=== PATIENT | female | born 1980 | race Caucasian/White ===

== ENCOUNTER 2023-03-25 13:12 | Outpatient (OUT) | payer OTHER, SELFPAY ==
[2023-03-25 16:56] LABS: Thyroid Stimulating Hormone 0.852 uIU/mL (0.358-3.740)
== END 2023-03-25 13:13 | disposition home or self-care (01) ==
LOC: LAB 13:18
PROVIDERS: PCP Nurse Practitioner
DX: R41.3 Other amnesia (principal)
CPT/HCPCS: 36415; 82607; 84443

== ENCOUNTER 2023-04-06 13:50 | Emergency (ER) | payer OTHER, SELFPAY ==
[2023-04-06 14:05] VITALS: BP 116/83; PULSE 80; RESP 16; O2SAT 100; BMI 28.2
--- NOTE | 2023-04-06 14:11 | XR_ITS ---
The [address] [address] Patient Name: ANDREA CORNELIUS MRN: [id number] date: 1980 Sex: F Assigned Patient Location: ER Current Patient Location: ER Accession/Order Number: [id number] Exam Date: 04/06/2023 15:18 Report Date: 04/06/2023 15:51 At the request of: ANITRA HENRY Procedure: XR acute abdomen series EXAMINATION: XR acute abdomen series HISTORY: Epigastric pain and difficulty swallowing COMPARISON: None. TECHNIQUE: PA chest and 2 views of the abdomen FINDINGS: The lung parenchyma is free of consolidation or infiltrate. No pneumothorax or pleural effusion. The cardiac, mediastinal and hilar contours are normal. The bowel gas pattern is nonobstructed. No free intraperitoneal air or visualized intra-abdominal calcification. Stool burden is unremarkable. The visualized osseous structures exhibit no gross abnormality. XR/XR acute abdomen series IMPRESSION: No visualized abnormality. Electronically authenticated by: JANA MARTIN Date: 04/06/2023 15:51
--- NOTE | 2023-04-06 14:40 | ED.GENADUL1 ---
HPI - General Adult General Chief complaint: Nausea/Vomiting/Diarrhea Stated complaint: HEART BURN/ESOPHAGUS SWOLLEN Time Seen by Provider: 04/06/23 14:11 Mode of arrival: walk-in History of Present Illness HPI narrative: patient is a 43-year-old female presents to the emergency department for difficulty swallowing over the last day. She has a history of esophagitis and heartburn. She states for the last two weeks she has had an increase in heartburn-type symptoms. She states last night she was able to eat and drink fairly well but today she was not able to pass three bites of macaroni and cheese and they came back up. She states she had an endoscopy done one year ago with her colonoscopy for irritable bowel syndrome and she was found to have swelling in the stomach and esophagus. She is not concerned for . She is not on any medicines for esophagitis or gastritis. Related Data Home Medications Medication Instructions Recorded Confirmed clonazepam 1 mg tablet 1 mg PO BID 04/06/23 04/06/23 dicyclomine 20 mg tablet 20 mg PO .Q6HR PRN abdominal pain 04/06/23 04/06/23 fluoxetine 40 mg capsule 80 mg PO DAILY 04/06/23 04/06/23 gabapentin 800 mg tablet 800 mg PO TID 04/06/23 04/06/23 levetiracetam 500 mg tablet 500 mg PO BID 04/06/23 04/06/23 modafinil 100 mg tablet 100 mg PO QID 04/06/23 04/06/23 naratriptan 2.5 mg tablet 2.5 mg PO DAILY PRN migraine 04/06/23 04/06/23 headache potassium bicarbonate-citric acid 25 meq PO BID 04/06/23 04/06/23 25 mEq effervescent tablet (Klor-Con/EF) sumatriptan succinate 100 mg tablet 100 mg PO Q2H PRN migraine headache 04/06/23 04/06/23 tizanidine 4 mg tablet 4 mg PO QPM PRN muscle spasticity 04/06/23 04/06/23 Previous Rx's Medication Instructions Recorded ondansetron 4 mg disintegrating 4 mg PO Q6H PRN nausea and 04/06/23 tablet vomiting #12 tabs pantoprazole 40 mg tablet,delayed 40 mg PO DAILY #7 tabs 04/06/23 release (Protonix) sucralfate 1 gram tablet (Carafate) 1 g PO Q6H PRN abdominal pain #12 04/06/23 tabs Allergies Allergy/AdvReac Type Severity Reaction Status Date / Time metoclopramide [From Reglan] Allergy Severe Verified 04/06/23 14:11 Penicillins Allergy Severe Verified 04/06/23 14:11 Review of Systems ROS Constitutional Denies: fever or chills Ears, nose, mouth, and throat Denies: throat pain or neck pain Cardiovascular Reports: chest pain Respiratory Denies: shortness of breath or cough Gastrointestinal Denies: abdominal pain, nausea or vomiting Musculoskeletal Denies: back pain Integumentary/Breast Denies: rash [facility] Medical History (Updated 04/06/23 @ 16:02 by DILCIA Draper) Exam Narrative Exam Narrative: Gen.: Awake, alert, in no distress Head: Normocephalic, atraumatic ENT: Moist mucous membranes Respiratory: No respiratory distress, lungs clear bilaterally Cardio: Regular rate and rhythm Gastrointestinal: Abdomen is soft, nondistended and nontender to palpation Extremities: Moves extremities equally, no injuries noted Psych: Normal mood and affect Neuro: No focal neuro deficit Skin: Warm, dry, intact Constitutional Vital Signs, click to edit/add: Last Vital Signs Pulse 63 04/06/23 15:32 Resp 18 04/06/23 15:32 BP 161/96 H 04/06/23 15:32 Pulse Ox 97 04/06/23 15:32 O2 Del Method Room Air 04/06/23 15:32 Course Vital Signs Vital signs: Vital Signs Pulse Rate 80 04/06/23 14:05 Respiratory Rate 16 04/06/23 14:05 Blood Pressure 116/83 H 04/06/23 14:05 Pulse Oximetry 100 04/06/23 14:05 Oxygen Delivery Method Room Air 04/06/23 14:05 Pulse Rate 63 04/06/23 15:32 Respiratory Rate 18 04/06/23 15:32 Blood Pressure 161/96 H 04/06/23 15:32 Pulse Oximetry 97 04/06/23 15:32 Oxygen Delivery Method Room Air 04/06/23 15:32 Medical Decision Making MDM Narrative Medical decision making narrative: patient is treated with IV fluids, IV Protonix, she tolerated a gastrointestinal cocktail with no difficulty. After stating multiple times that the patient did not want an IV and stated I don't even want to be here her family member reported that she was crying and needed somebody to talk to her about her migraine that she developed in the emergency department. Patient treated with a Fioricet prior to discharge, she had no episodes of emesis and tolerated the gastrointestinal cocktail with no problem. She is discharged home with Protonix, Carafate and Zofran to follow-up with general surgery as needed. Return to the Emergency Room if symptoms change or worsen. Medical Records Medical records reviewed: Yes I reviewed the patient's medical records Lab Data Lab results reviewed: Yes I reviewed the patient's lab results Labs: Lab Results 04/06/23 04/06/23 04/06/23 Range/Units 14:38 14:47 15:06 WBC 4.8 (4.0-11.0) 10^3/uL RBC 3.86 L (4.20-5.40) 10^6/uL Hgb 12.1 (12.0-16.0) g/dL Hct 36.4 (36.0-48.0) % MCV 94.3 (81.0-99.0) fL MCH 31.3 (26.7-34.0) pg MCHC 33.2 (29.9-35.2) g/dL RDW 12.4 (11.0-15.0) % Plt Count 248 (150-450) 10^3/uL MPV 10.5 (9.5-13.5) fL Neut % (Auto) 54.3 (43.0-75.0) % Lymph % (Auto) 27.7 (20.5-60.0) % [place] % (Auto) 14.5 H (1.7-12.0) % Eos % (Auto) 2.7 (0.9-7.0) % Baso % (Auto) 0.4 (0.2-2.0) % Neut # (Auto) 2.6 (1.4-6.5) 10^3/uL Lymph # (Auto) 1.3 (1.2-3.8) 10^3/uL [place] # (Auto) 0.7 (0.3-0.8) 10^3/uL Eos # (Auto) 0.1 (0.0-0.7) 10^3/uL Baso # (Auto) 0.0 (0.0-0.1) 10^3/uL Abs Immat Gran (auto) 0.02 (0.00-0.03) 10^3/uL Imm/Tot Granulo (auto) 0.4 (0.0-0.5) % Sodium 139 (136-145) mmol/L Potassium 4.1 (3.5-5.1) mmol/L Chloride 103 (98-107) mmol/L Carbon Dioxide 26.7 (21.0-32.0) mmol/L Anion Gap 13.4 BUN 14.0 (7.0-18.0) mg/dL Creatinine 0.80 (0.55-1.02) mg/dL Est GFR ( Amer) >60 (>=60) Est GFR (Non-Af Amer) >60 (>=60) BUN/Creatinine Ratio 17.5 Glucose 96 (74-106) mg/dL Lactate 0.9 (0.4-2.0) mmol/L Calcium 8.6 (8.5-10.1) mg/dL Total Bilirubin 0.3 (0.2-1.0) mg/dL AST 20 (15-37) U/L ALT 26 (14-59) U/L Alkaline Phosphatase 76 (46-116) U/L Troponin I High Sens <4.0 L (4.0-51.3) pg/mL Total Protein 6.6 (6.4-8.2) g/dL Albumin 3.6 (3.4-5.0) g/dL Globulin 3.0 g/dL Albumin/Globulin Ratio 1.2 Lipase 46.0 L (73.0-393.0) U/L Urine Color Lt. yellow (YELLOW) Urine Clarity Clear (CLEAR) Urine pH 7.5 (5.0-9.0) Ur Specific [place] 1.015 (1.005-1.025) Urine Protein Negative (NEG/TRACE) mg/dL Urine Glucose (UA) Negative (NEGATIVE) mg/dL Urine Ketones Negative (NEGATIVE) mg/dL Urine Occult Blood Negative (NEGATIVE) Urine Nitrite Negative (NEGATIVE) Urine Bilirubin Negative (NEGATIVE) Urine Urobilinogen 0.2 (0.2-1.0) EU/dL Ur Leukocyte Esterase Negative (NEGATIVE) Imaging Data Abdominal x-ray: Attestation: I have reviewed the pertinent imaging results. Radiologist's impression: Procedure: XR acute abdomen series EXAMINATION: XR acute abdomen series HISTORY: Epigastric pain and difficulty swallowing COMPARISON: None. TECHNIQUE: PA chest and 2 views of the abdomen FINDINGS: The lung parenchyma is free of consolidation or infiltrate. No pneumothorax or pleural effusion. The cardiac, mediastinal and hilar contours are normal. The bowel gas pattern is nonobstructed. No free intraperitoneal air or visualized intra-abdominal calcification. Stool burden is unremarkable. The visualized osseous structures exhibit no gross abnormality. IMPRESSION: No visualized abnormality. Electronically authenticated by: JANA MARTIN Date: 04/06/2023 15:51 Discharge Plan Discharge Chief Complaint: Nausea/Vomiting/Diarrhea Clinical Impression: Esophagitis Patient Disposition: Home, Self-Care Time of Disposition Decision: 16:03 Condition: Good Prescriptions / Home Meds: New sucralfate [Carafate] 1 gram tablet 1 g PO Q6H PRN (Reason: abdominal pain) Qty: 12 0RF pantoprazole [Protonix] 40 mg tablet,delayed release (DR/EC) 40 mg PO DAILY Qty: 7 0RF ondansetron 4 mg tablet,disintegrating 4 mg PO Q6H PRN (Reason: nausea and vomiting) Qty: 12 0RF No Action clonazepam 1 mg tablet 1 mg PO BID dicyclomine 20 mg tablet 20 mg PO .Q6HR PRN (Reason: abdominal pain) fluoxetine 40 mg capsule 80 mg PO DAILY gabapentin 800 mg tablet 800 mg PO TID levetiracetam 500 mg tablet 500 mg PO BID modafinil 100 mg tablet 100 mg PO QID naratriptan 2.5 mg tablet 2.5 mg PO DAILY PRN (Reason: migraine headache) Klor-Con/EF 25 mEq tablet, effervescent 25 meq PO BID sumatriptan succinate 100 mg tablet 100 mg PO Q2H PRN (Reason: migraine headache) tizanidine 4 mg tablet 4 mg PO QPM PRN (Reason: muscle spasticity) Instructions: Dysphagia (ED), Esophagitis (ED) Additional Instructions: Follow up with your doctor or a GI specialist - [place] Eck[place] [place] [phone] Stand Alone Forms: Portal Instructions Referrals: Caitlin Finch [Primary Care Provider] - 1 week
[2023-04-06 14:57] LABS: Basophils Percent Auto 0.4 % (0.2-2.0); Eosinophils Absolute Auto 0.1 10^3/uL (0.0-0.7); Eosinophils Percent Auto 2.7 % (0.9-7.0); Hematocrit 36.4 % (36.0-48.0); Hemoglobin 12.1 g/dL (12.0-16.0); Immature Granulocytes Abs Auto 0.02 10^3/uL (0.00-0.03); Immature Granulocytes Pct Auto 0.4 % (0.0-0.5); Lymphocytes Absolute Auto 1.3 10^3/uL (1.2-3.8); Lymphocytes Percent Auto 27.7 % (20.5-60.0); Mean Corpuscular HGB Conc 33.2 g/dL (29.9-35.2); Mean Corpuscular Hemoglobin 31.3 pg (26.7-34.0); Mean Corpuscular Volume 94.3 fL (81.0-99.0); Mean Platelet Volume 10.5 fL (9.5-13.5); Monocytes Absolute Auto 0.7 10^3/uL (0.3-0.8); Monocytes Percent Auto 14.5 % (1.7-12.0); Neutrophils Absolute Auto 2.6 10^3/uL (1.4-6.5); Neutrophils Percent Auto 54.3 % (43.0-75.0); Platelet Count 248 10^3/uL (150-450); Red Blood Count 3.86 10^6/uL (4.20-5.40); Red Cell Distribution Width 12.4 % (11.0-15.0); White Blood Count 4.8 10^3/uL (4.0-11.0)
[2023-04-06 15:15] LABS: Bilirubin Urine NEGATIVE (NEGATIVE); Blood Urine NEGATIVE (NEGATIVE); Clarity Urine CLEAR (CLEAR); Color Urine LT. YELLOW (YELLOW); Glucose Urine UA NEGATIVE (NEGATIVE); Ketones Urine NEGATIVE (NEGATIVE); Leukocyte Esterase Urine NEGATIVE (NEGATIVE); Nitrite Urine NEGATIVE (NEGATIVE); Protein Urine NEGATIVE (NEG/TRACE); Specific Gravity Urine 1.015 (1.005-1.025); Urobilinogen Urine 0.2 EU/dL (0.2-1.0); pH Urine 7.5 (5.0-9.0)
[2023-04-06 15:16] LABS: Urine Microscopic Indicated NO
[2023-04-06] MEDS: 0.9 % SODIUM CHLORIDE 1,000 ML 999 ML IV (15:23)
[2023-04-06] MEDS: lidocaine HCL 15 ML, MAG HYDROX/ALUMINUM HYD/SIMETH 30 ML, HYOSCYAMINE SULFATE 0.25 MG PO (15:23)
[2023-04-06] MEDS: PANTOPRAZOLE SODIUM 40 MG VIAL IV (15:23)
[2023-04-06 15:31] LABS: Alanine Aminotransferase 26 U/L (14-59); Albumin Globulin Ratio 1.2; Albumin Level 3.6 g/dL (3.4-5.0); Alkaline Phosphatase 76 U/L (46-116); Anion Gap 13.4; Aspartate Amino Transferase 20 U/L (15-37); BUN Creatinine Ratio 17.5; Bilirubin Total 0.3 mg/dL (0.2-1.0); Calcium 8.6 mg/dL (8.5-10.1); Carbon Dioxide 26.7 mmol/L (21.0-32.0); Chloride 103 mmol/L (98-107); Estimated GFR (African America >60 (>=60); Estimated GFR (Non-African Ame >60 (>=60); Glucose 96 mg/dL (74-106); Potassium 4.1 mmol/L (3.5-5.1); Sodium 139 mmol/L (136-145); Total Protein 6.6 g/dL (6.4-8.2); Troponin I High Sensitivity <4.0 pg/mL (4.0-51.3)
[2023-04-06 15:32] VITALS: BP 161/96; PULSE 63; RESP 18; O2SAT 97
[2023-04-06 15:32] LABS: Lactate/Lactic Acid 0.9 mmol/L (0.4-2.0)
== END 2023-04-06 16:23 | disposition home or self-care (01) ==
PROVIDERS: Physician Assistant; Emergency Provider Emergency Medicine; PCP Nurse Practitioner
DX: K20.90 Esophagitis, unspecified without bleeding (principal); Z79.899 Other long term (current) drug therapy
CPT/HCPCS: 36415; 74022; 80053; 81003; 83605; 83690; 84484; 85025; 96361; 96374; 99285

== ENCOUNTER 2023-07-03 14:56 | Outpatient (OUT) | payer OTHER, SELFPAY ==
--- NOTE | 2023-07-03 15:07 | XR_ITS ---
The [address] [address] Patient Name: ANDREA CORNELIUS MRN: [id number] date: 1980 Sex: F Assigned Patient Location: [facility] Current Patient Location: Accession/Order Number: [id number] Exam Date: 07/03/2023 15:10 Report Date: 07/05/2023 16:01 At the request of: RONEY VILLALTA Procedure: XR abdomen 1V EXAMINATION: XR abdomen 1V, [id number] HISTORY: KIDNEY STONES N20.0 COMPARISON: CT abdomen/pelvis 07/04/2022. FINDINGS/IMPRESSION: There are 3 small calcification(s) projecting over left, similar in size and location compared with 07/04/2022. The 2 punctate stones seen in the right kidney on the CT from 07/04/2022 are not visualized and could be obscured by overlying soft tissues or may have passed. No new calcification projecting over either kidney or along the expected courses of the ureters. Nonobstructive bowel gas pattern. Stool burden is average. Electronically authenticated by: JOAN FINCH Date: 07/05/2023 16:01
== END 2023-07-03 14:57 | disposition home or self-care (01) ==
LOC: RAD 14:57
PROVIDERS: PCP Nurse Practitioner; Visit Provider Urology
DX: N20.0 Calculus of kidney (principal)
CPT/HCPCS: 74018

== ENCOUNTER 2023-08-21 18:00 | Emergency (ER) | payer OTHER, SELFPAY ==
[2023-08-21] VITALS (14 sets, daily range): BP systolic 122–124; BP diastolic 78–83; PULSE 48–60; RESP 14–21; TEMP 36.8; O2SAT 92–97; BMI 28.3
--- NOTE | 2023-08-21 18:48 | ED.CHESTPAI1 ---
HPI - Chest Pain General Chief Complaint: Chest Pain Stated Complaint: Chest Pain, Shortness of Breath Time Seen by Provider: 08/21/23 18:41 Source: patient Mode of arrival: walk-in Limitations: no limitations History of Present Illness HPI narrative: this patient's here for evaluation of chest pain. She said it started low but yesterday and seemed be worse today. She says she just saw a special day class teacher after being referred from her primary care practitioner. Should the special day class teacher said her blood work was normal. She has not had previous myocardial infarction valvular heart disease or coronary disease. She quit smoking many years ago. She does not have any shortness of breath. She admits that she suffers from anxiety and fibromyalgia psoas difficult to tell if there is anything wrong when she has chest pain. She said this discomfort is like she was punched in the sternum area that started yesterday. She has not had deep vein thrombosis PE phlebitis or any other underlying pulmonary or vascular disease. She is also scheduled to have pulmonary function testing next week. She is seeing a neurologist for migraines. She feels she might be having anxiety attack but wanted to be sure there is nothing serious today. Related Data Home Medications Medication Instructions Recorded Confirmed clonazepam 1 mg tablet 1 mg PO BID 04/06/23 04/06/23 dicyclomine 20 mg tablet 20 mg PO .Q6HR PRN abdominal pain 04/06/23 04/06/23 fluoxetine 40 mg capsule 80 mg PO DAILY 04/06/23 04/06/23 gabapentin 800 mg tablet 800 mg PO TID 04/06/23 04/06/23 levetiracetam 500 mg tablet 500 mg PO BID 04/06/23 04/06/23 modafinil 100 mg tablet 100 mg PO QID 04/06/23 04/06/23 naratriptan 2.5 mg tablet 2.5 mg PO DAILY PRN migraine 04/06/23 04/06/23 headache potassium bicarbonate-citric acid 25 meq PO BID 04/06/23 04/06/23 25 mEq effervescent tablet (Klor-Con/EF) sumatriptan succinate 100 mg tablet 100 mg PO Q2H PRN migraine headache 04/06/23 04/06/23 tizanidine 4 mg tablet 4 mg PO QPM PRN muscle spasticity 04/06/23 04/06/23 Previous Rx's Medication Instructions Recorded ondansetron 4 mg disintegrating 4 mg PO Q6H PRN nausea and 04/06/23 tablet vomiting #12 tabs pantoprazole 40 mg tablet,delayed 40 mg PO DAILY #7 tabs 04/06/23 release (Protonix) sucralfate 1 gram tablet (Carafate) 1 g PO Q6H PRN abdominal pain #12 04/06/23 tabs Allergies Allergy/AdvReac Type Severity Reaction Status Date / Time metoclopramide [From Reglan] Allergy Severe Verified 04/06/23 14:11 Penicillins Allergy Severe Verified 04/06/23 14:11 [facility] Medical History (Updated 08/21/23 @ 18:52 by Mauricio Curry MD) Fibromyalgia ?M79.7 - Fibromyalgia (ICD-10) IBS (irritable bowel syndrome) ?K58.9 - Irritable bowel syndrome without diarrhea (ICD-10) Migraine ?G43.909 - Migraine, unspecified, not intractable, without status migrainosus (ICD-10) Seizure ?R56.9 - Unspecified convulsions (ICD-10) Exam Narrative Exam Narrative: awake alert stable vital signs. She is afebrile heart rates sixty temperature normal pulse ox 97-98 percent on room air. HEENT no evidence of pallor or scleral icterus or swelling of the craniofacial area. Chest her lungs are completely clear with no wheeze or rales rhonchi there is no pleural or pericardial rub. Respiratory shows no rest or distress wheezing or coughing and is a said no rales or rhonchi. Extremities show no evidence of deep vein thrombosis phlebitis or edema. Neurological shows no focal neurological deficits. Mentation she does have somewhat of a flat and depressed affect. She is very pleasant nonetheless. Constitutional Vital Signs, click to edit/add: Last Vital Signs Temp 98.2 F 08/21/23 18:02 Pulse 58 L 08/21/23 18:02 Resp 20 08/21/23 18:02 BP 124/83 08/21/23 18:02 Pulse Ox 97 08/21/23 18:02 O2 Del Method Room Air 08/21/23 18:02 Course Vital Signs Vital signs: Vital Signs Temperature 98.2 F 08/21/23 18:02 Pulse Rate 58 L 08/21/23 18:02 Respiratory Rate 20 08/21/23 18:02 Blood Pressure 124/83 08/21/23 18:02 Pulse Oximetry 97 08/21/23 18:02 Oxygen Delivery Method Room Air 08/21/23 18:02 Temperature 98.2 F 08/21/23 18:02 Pulse Rate 58 L 08/21/23 18:02 Respiratory Rate 20 08/21/23 18:02 Blood Pressure 124/83 08/21/23 18:02 Pulse Oximetry 97 08/21/23 18:02 Oxygen Delivery Method Room Air 08/21/23 18:02 MDM - Chest Pain MDM Narrative Medical decision making narrative: patient presents with atypical presentation process chest pain. Which is cleared by a special day class teacher for the same. Does suffer from fibromyalgia and some anxiety. We'll order initial labs for the next Emergency Room physician follow-up with Discharge Plan Discharge Chief Complaint: Chest Pain Clinical Impression: Chest pain Prescriptions / Home Meds: No Action clonazepam 1 mg tablet 1 mg PO BID dicyclomine 20 mg tablet 20 mg PO .Q6HR PRN (Reason: abdominal pain) fluoxetine 40 mg capsule 80 mg PO DAILY gabapentin 800 mg tablet 800 mg PO TID levetiracetam 500 mg tablet 500 mg PO BID modafinil 100 mg tablet 100 mg PO QID naratriptan 2.5 mg tablet 2.5 mg PO DAILY PRN (Reason: migraine headache) Klor-Con/EF 25 mEq tablet, effervescent 25 meq PO BID sumatriptan succinate 100 mg tablet 100 mg PO Q2H PRN (Reason: migraine headache) tizanidine 4 mg tablet 4 mg PO QPM PRN (Reason: muscle spasticity) sucralfate [Carafate] 1 gram tablet 1 g PO Q6H PRN (Reason: abdominal pain) Qty: 12 0RF pantoprazole [Protonix] 40 mg tablet,delayed release (DR/EC) 40 mg PO DAILY Qty: 7 0RF ondansetron 4 mg tablet,disintegrating 4 mg PO Q6H PRN (Reason: nausea and vomiting) Qty: 12 0RF Referrals: Caitlin Finch, TASSEL MAKING MACHINE OPERATOR [Primary Care Provider] - 1 week
--- NOTE | 2023-08-21 18:50 | XR_ITS ---
The [address] [address] Patient Name: ANDREA CORNELIUS MRN: [id number] date: 1980 Sex: F Assigned Patient Location: ER Current Patient Location: ED.MAIN Accession/Order Number: [id number] Exam Date: 08/21/2023 19:15 Report Date: 08/21/2023 19:41 At the request of: MOLLY SOLIS Procedure: XR chest 1V EXAMINATION: XR chest 1V HISTORY: Chest pain COMPARISON: Portable chest 07/05/2022 TECHNIQUE: Portable chest FINDINGS: The lung parenchyma is free of consolidation or infiltrate. No pneumothorax or pleural effusion. The cardiac, mediastinal and hilar contours are normal. The visualized osseous structures exhibit no gross abnormality. XR/XR chest 1V IMPRESSION: No acute cardiopulmonary abnormality. Electronically authenticated by: JANA MARTIN Date: 08/21/2023 19:41
--- NOTE | 2023-08-21 18:50 | ECG_ITS ---
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
[2023-08-21 18:55] LABS: Basophils Percent Auto 0.4 % (0.2-2.0); Eosinophils Absolute Auto 0.1 10^3/uL (0.0-0.7); Eosinophils Percent Auto 1.6 % (0.9-7.0); Hematocrit 36.5 % (36.0-48.0); Hemoglobin 11.7 g/dL (12.0-16.0); Immature Granulocytes Abs Auto 0.01 10^3/uL (0.00-0.03); Immature Granulocytes Pct Auto 0.1 % (0.0-0.5); Mean Corpuscular HGB Conc 32.1 g/dL (29.9-35.2); Mean Corpuscular Hemoglobin 31.5 pg (26.7-34.0); Mean Corpuscular Volume 98.4 fL (81.0-99.0); Mean Platelet Volume 10.6 fL (9.5-13.5); Monocytes Absolute Auto 0.9 10^3/uL (0.3-0.8); Monocytes Percent Auto 11.5 % (1.7-12.0); Neutrophils Absolute Auto 5.1 10^3/uL (1.4-6.5); Neutrophils Percent Auto 62.4 % (43.0-75.0); Platelet Count 290 10^3/uL (150-450); Red Blood Count 3.71 10^6/uL (4.20-5.40); White Blood Count 8.2 10^3/uL (4.0-11.0)
[2023-08-21 19:13] LABS: Anion Gap 12.3; BUN Creatinine Ratio 16.2; Calcium 8.6 mg/dL (8.5-10.1); Carbon Dioxide 22.8 mmol/L (21.0-32.0); Chloride 105 mmol/L (98-107); Estimated GFR (African America >60 (>=60); Estimated GFR (Non-African Ame 57 (>=60); Glucose 107 mg/dL (74-106); Potassium 4.1 mmol/L (3.5-5.1); Sodium 136 mmol/L (136-145); Troponin I High Sensitivity 5.5 pg/mL (4.0-51.3)
--- OUTSIDE RECORDS SUMMARY | 2023-09-15 23:40 | XMS_ITS | CCD ---
Author Name Unknown Address [address] [place] [address] Organization [facility] Care Team Providers Care Unix Consultant Name Role Phone Unavailable Primary Care Provider UnavailCaitlin Choi Primary Care Provider DO Fernando Ragsdale Attending Provider [phone] NON STAFF Primary Care Provider UnavailCaitlin Choi Primary Care Provider [phone] Jaelyn Bright Unavailable CAITLIN FINCH Primary Care Physician [phone] Caitlin Finch Primary Care Provider [phone] CAITLIN FINCH Primary Care Unavailable FRANK DIAZ Referring Unavailabl e CAITLIN FINCH Primary Care Unavailable FARNK DIAZ Referring Unavailabl e CAITLIN FINCH. Primary Care Unavailable FRANK DIAZ Referring Unavailabl e STEF CAITLIN Ras. Primary Care Unavailable FRANK DIAZ Referring Unavailabl e AICHHOLZ, TELEVISION HOST CAITLIN Primary Care Unavailable BENEDICT WONG Admitting Unavailable BENEDICT WONG Attending Unavailable BENEDICT WONG Consulting Unavailable DR ALANNAH HURTADO Admitting Unavailable AICHHOLZ, TELEVISION HOST CAITLIN Primary Care Unavailable DR ALANNAH HURTADO Attending Unavailable DR NOAH DIAZ Consulting Unavailable DR ALANNAH HURTADO Consulting Unavailable KIRILL Laboy, DR WILSON Consulting Unavailable JANA MARTIN Consulting Unavailable AICHHOLZ, TELEVISION HOST CAITLIN Consulting Unavailable AICHHOLZ, TELEVISION HOST CAITLIN Primary Care Unavailable AICHHOLZ, TELEVISION HOST CAITLIN Admitting Unavailable AICHHOLZ, TELEVISION HOST CAITLIN Attending Unavailable ZIEBBELLA, DR CHIDI Kumar Consulting Unavailable AICHHOLZ, TELEVISION HOST CAITLIN Consulting Unavailable AICHHOLZ, TELEVISION HOST CAITLIN Primary Care Unavailable AICHHOLZ, TELEVISION HOST CAITLIN Admitting Unavailable AICHHOLZ, TELEVISION HOST CAITLIN Attending Unavailable VILLALTA ., DR SIM Admitting Unavailable AICHHOLZ, TELEVISION HOST CAITLIN Primary Care Unavailable VILLALTA ., DR SIM Attending Unavailable VILLALTA ., DR SIM Consulting Unavailable AICHHOLZ, TELEVISION HOST CAITLIN Primary Care Unavailable AICHHOLZ, TELEVISION HOST CAITLIN Admitting Unavailable AICHHOLZ, TELEVISION HOST CAITLIN Attending Unavailable ANDREW, DR CHIDI Kumar Consulting Unavailable HAY ., DR WILSON Admitting Unavailable AICHHOLZ, TELEVISION HOST CAITLIN Primary Care Unavailable HAY ., DR WILSON Attending Unavailable HAY ., DR WILSON Consulting Unavailable Aichholz, Caitlin Gemini Unavailable Unavailable Unavailable Aichjosez, Caitlin J. Primary Care Provider [phone] Anya Watkins Referring Unavailable Aichholz, Caitlin J Primary Care Unavailable Diaz, Shaneka Attending Unavailable Diaz, Shaneka Admitting Unavailable Diaz, Shaneka Attending Unavailable Diaz, Shaneka Referring Unavailable Aichholz, Mrs. Caitlin Gemini Primary Care Unavailab le Diaz, Shaneka Attending Unavailable Diaz, Shaneka Referring Unavailable Aichholz, Mrs. Caitlin Gemini Primary Care Unavailab le Anya Watkins Attending Unavailable Aichholz, Mrs. Caitlin Gemini Primary Care Unavailab le Diaz, Shaneka Attending Unavailable Diaz, Shaneka Referring Unavailable Aichholz, Mrs. Caitlin Gemini Primary Care Unavailab le Aichholz, Mrs. Caitlin Gemini Primary Care Unavailab le Diaz, Shaneka Attending Unavailable Aichholz, Mrs. Caitlin Gemini Primary Care Unavailab le Joe, Shaneka Attending Unavailable Roney VILLALTA Attending Unavailable Roney VILLALTA Attending Unavailable Roney VILLALTA Attending Unavailable AICHHOLZ, CAITLIN J Referring Unavailable Roney VILLALTA Attending Unavailable DIAZ, SHANEKA Attending Unavailable AICHHOLZ, CAITLIN GEMINI Primary Care Unavailable PARINJA, KEYLA Referring Unavailable AICHHOLZ, CAITLIN J. Primary Care Unavailable AICHHOLZ, CAITLIN J. Primary Care Unavailable PARINJA, KEYLA Referring Unavailable AICHHOLZ, CAITLIN J. Primary Care Unavailable PARINJA, KEYLA Referring Unavailable PARINJA, KEYLA Referring Unavailable AICHHOLZ, CAITLIN J. Primary Care Unavailable PARINJA, KEYLA Referring Unavailable AICHHOLZ, CAITLIN J. Primary Care Unavailable AICHHOLZ, CAITLIN J. Primary Care Unavailable PARINJA, KEYLA Referring Unavailable PARINJA, KEYLA Referring Unavailable AICHHOLZ, CAITLIN J. Primary Care Unavailable FU, CHRISTOPHER Referring Unavailable AICHHOLZ, CAITLIN J. Primary Care Unavailable FU, CHRISTOPHER Referring Unavailable AICHHOLZ, CAITLIN J. Primary Care Unavailable FU, CHRISTOPHER Referring Unavailable AICHHOLZ, CAITLIN J. Primary Care Unavailable AICHHOLZ, CAITLIN J. Primary Care Unavailable FU, CHRISTOPHER Referring Unavailable FU, CHRISTOPHER Referring Unavailable AICHHOLZ, CAITLIN J. Primary Care Unavailable AICHHOLZ, CAITLIN J. Primary Care Unavailable PATRICIA CORDERO Referring Unavailable PARINJA, KEYLA Referring Unavailable AICHHOLZ, CAITLIN J. Primary Care Unavailable PARINJA, KEYLA Referring Unavailable AICHHOLZ, CAITLIN J. Primary Care Unavailable PARINJA, KEYLA Referring Unavailable AICHHOLZ, CAITLIN J. Primary Care Unavailable PARINJA, KEYLA Referring Unavailable AICHHOLZ, CAITLIN J. Primary Care Unavailable PARINJA, KEYLA Referring Unavailable AICHHOLZ, CAITLIN J. Primary Care Unavailable AICHHOLZ, CAITLIN J. Primary Care Unavailable AICHHOLZ, CAITLIN J. Primary Care Unavailable PARINJA, KEYLA Referring Unavailable PARINJA, KEYLA Referring Unavailable AICHHOLZ, CAITLIN J. Primary Care Unavailable PARINJA, KEYLA Referring Unavailable AICHHOLZ, CAITLIN J. Primary Care Unavailable PARINJA, KEYLA Referring Unavailable AICHHOLZ, CAITLIN J. Primary Care Unavailable PARINJA, KEYLA Referring Unavailable AICHHOLZ, CAITLIN J. Primary Care Unavailable AICHHOLZ, CAITLIN J. Primary Care Unavailable PARINJA, KEYLA Referring Unavailable AICHHOLZ, CAITLIN J. Primary Care Unavailable PARINJA, KEYLA Referring Unavailable AICHHOLZ, CAITLIN J. Primary Care Unavailable PATRICIA CORDERO Referring Unavailable PARINJA, KEYLA Referring Unavailable PATRICIA FINCHA J. Primary Care Unavailable CAITLIN FINCH J. Primary Care Unavailable PATRICIA CORDERO Referring Unavailable STEF CAITLIN J. Primary Care Unavailable PARINJA, KEYLA Referring Unavailable PARINJA, KEYLA Referring Unavailable STEF CAITLIN J. Primary Care Unavailable PATRICIA FINCHA J. Primary Care Unavailable NOEMI GODINEZ Attending Unava ilable PARINJA, KEYLA Referring Unavailable STEF CAITLIN J. Primary Care Unavailable STEF CAITLIN J. Primary Care Unavailable PARINJA, KEYLA Referring Unavailable Allergies Allergy Classification Reported Allergen(s) Allergy Type Date of Onset Reaction(s) Facility (9 sources) bee pollen Propensity to adverse reactions to drug 05-27-20 17 [employer] (19 sources) Metoclopramide; Translations: [metoclopramide] Drug Allergy 05-27-20 17 Feeling agitated (finding) [employer] (10 sources) Penicillins; Translations: [PENICILLINS] Propensity to adverse reactions to drug 05-27-20 17 [employer] (4 sources) Amitriptyline Drug Allergy 04-30-20 21 [facility] (1 source) Penicillin V Drug Allergy rash [facility] Other (3 sources) Penicillin; Translations: [penicillin] Drug Allergy Eruption of skin (disorder) [facility] [place] (3 sources) Penicillins Propensity to adverse reactions to drug 05-27-20 17 [facility] (3 sources) Pollen Propensity to adverse reactions to drug 05-27-20 17 [facility] Work Phone: (2 sources) Iothalamate; Translations: [Reglan] Drug Allergy 12-09-19 16 [facility] Rep[facility] (1 source) Penicillins Drug allergy (disorder) 08-31-20 14 [facility] Repository (4 sources) Penicillins; Translations: [Penicillins] Allergy to drug (finding) Hives [facility] 250 DO Work Phone: (1 source) Metoclopramide Drug Allergy 05-13-20 [facility] Repository (1 source) Penicillins Drug allergy (disorder) 05-13-20 [facility] Repository (1 source) Metoclopramide; Translations: [METOCLOPRAMIDE HCL] Drug Allergy 07-15-20 [facility] 3 Repository Medications Current Medications Medication Drug Class(es) Dates Sig (Normalized) Sig (Original) Tylenol (2 sources) Start: 09-01-2022 Tylenol Oral, Refills(s) 0 Start Date: 09/01/22 Status: Ordered azithromycin 250 mg oral tablet (1 source) Macrolide Antimicrobial Azithromycin 250 MG as directed Orally Active buPROPion (5 sources) Aminoketone buPROPion HCl (WELLBUTRIN XL PO) Take by mouth 0 Active clindamycin 20 mg/ml vaginal cream (3 sources) Lincosamide Antibacterial Start: 06-23-2022 clindamycin (CLEOCIN) 2 % vaginal cream Place vaginally nightly. For 5 nights 40 g 0 06/23/2022 Active clobetasol propionate 0.0005 mg/mg topical ointment (3 sources) Corticosteroid Start: 08-14-2022 clobetasol (TEMOVATE) 0.05 % ointment Indications: Acute vulvitis Apply topically 2 times daily. 30 g 1 08/14/2022 Active clonazePAM 1 mg oral tablet (19 sources) Benzodiazepine Start: 05-05-2017 take 1 tablet by mouth three times daily as needed clonazePAM (KLONOPIN) 1 MG tablet Take 1 tablet by mouth 3 times daily as needed. 0 05/05/2017 Active take 1 tablet by loan th every twelve hours as needed clonazePAM 1 MG Oral Tablet TAKE 1 TABLE T EVERY 12 HOURS NEEDED. Quantity: 0 Refills: 0 Ordered: 23-Apr-2023 DO Active take 1 tablet by loan th every twelve hours KlonoPIN 0.5 MG 1 tablet Orally twice a day Active Erenumab-aooe (AIMOVIG SC) (6 sources) Erenumab-aooe (AIMOVIG SC) Inject into the skin 0 Active esketamine 140 mg/ml nasal spray (3 sources) esketamine (SPRA VATO) 28 MG/DEVICE SOPK nasal solution 3 sprays by Nasal route every 14 days 0 Active Ethinyl Estradiol / Levonorgestrel (14 sources) Progestin, Estrogen, Progestin-containing Intrauterine Device Start: 01-25-20 take 1 tablet by mouth once daily Levonorgest-Eth Estrad 91-Day 0.15-0.03 &0.01 MG TABS Indications: Women's annual routine gynecological examination Take 1 tablet by mouth daily 91 tablet 3 01/25/2020 Active Start: 11-08-2019 take 1 tablet by loan th once daily Levonorgest-Eth Estrad 91-Day 0.15-0.03 &0.01 MG TABS Take 1 tablet by mouth daily 91 tablet 0 11/08/2019 Active FLUoxetine 40 mg oral capsule (19 sources) Serotonin Reuptake Inhibitor Start: 05-11-2017 take 1 capsule by mouth once daily FLUoxetine (PROZAC) 40 MG capsule Take 1 capsule by mouth daily 0 05/11/2017 Active take 2 capsules by mouth once da ravi PROzac 40 MG Oral Capsule TAKE 2 CAPSULES DAILY. Quantity: 0 Refills: 0 Ordered: 23-Apr-2023 DO Active gabapentin 800 mg oral tablet (9 sources) Anti-epileptic Agent Start: 07-22-2022 take 1 tablet by mouth every eight hours gabapentin (NEURONTIN) 800 MG tablet TAKE 1 TABLET BY MOUTH EVERY 8 HOURS 0 07/22/2022 Active Start: 06-06-2021 take 1 mg by mouth t hree times daily gabapentin 300 mg Cap mg cap(s), Oral, TID, Refills(s) 0 Start Date: 06/06/21 Status: Ordered take 1 tablet by loan th three times daily Gabapentin 800 MG Oral Tablet TAKE 1 TABLET 3 TIMES DAILY. Quantity: 0 Refills: 0 Ordered: 23-Apr-2023 DO Active Ibuprofen (8 sources) Nonsteroidal Anti-inflammatory Drug Start: 09-01-2022 ibuprofen Refills (s) 0 Start Date: 09/01/22 Status: Ordered take 1 tablet by loan th every six hours as needed for pain ibuprofen (ADVIL;MOTRIN) 800 MG tablet T linda 1 tablet by mouth every 6 hours as needed for Pain 0 Active take 1 tablet by loan th every six hours as needed for pain ibuprofen (ADVIL;MOTRIN) 200 MG tablet T linda 200 mg by mouth every 6 hours as needed for Pain 0 Active levETIRAcetam 250 mg oral tablet (10 sources) Start: 09-01-2022 take 1 mg by mouth twice daily Keppra 250 mg Tab mg tab(s), Oral, BID, Refills(s) 0 Start Date: 09/01/22 Status: Ordered Start: 03-14-2022 take 1 tablet by loan th every twelve hours levETIRAcetam (KEPPRA) 500 MG tablet TAKE 1 TABLET BY MOUTH EVERY 12 HOURS 0 03/14/2022 Active take 1 tablet by loan th twice daily Keppra 500 MG Oral Tablet TAKE 1 TABLET TWICE DAILY. Quantity: 0 Refills: 0 Ordered: 23-Apr-2023 DO Active modafinil 200 mg oral tablet (7 sources) Sympathomimetic-like Agent Start: 07-13-2022 modafinil (PROVIGIL) 200 MG tablet nystatin 355264 unt/ml oral suspension (1 source) Polyene Antifungal Start: 07-18-2022 take 4 mL by mouth three times daily Nystatin [id number] UNIT/ML 4 ml Mouth/Throat tid for 7 days Jun, Active Phentermine (4 sources) Sympathomimetic Amine Anorectic Start: 12-22-2022 take 1 mg by mouth once daily Adipex-P mg, Oral, Daily, Refills(s) 0 Start Date: 12/22/22 Status: Ordered Start: 12-01-2022 take 1 tablet by loan th once daily phentermine (ADIPEX-P) 37.5 MG tablet Take 1 tablet by mouth daily. 0 12/01/2022 Active predniSONE 10 mg oral tablet (1 source) Start: 05-01-2023 End: 05-21-2023 take 4 tablets by mouth once daily, then take 2 tablets by mouth once daily, then take 1 tablet by mouth once daily, then take 0.5 tablet by mouth once daily predniSONE (DELTASONE) 10 MG tablet Take 4 tablets by mouth daily for 5 days, THEN 2 tablets daily for 5 days, THEN 1 tablet daily for 5 days, THEN 0.5 tablets daily for 5 days. 38 tablet 0 05/01/2023 05/21/2023 Active Spravato 28 mg (56 mg dose) nasal spray (1 source) Start: 12-22-2022 Spravato 28 mg (56 mg dose) nasal spray mg, Nasal, qWeek, Refills(s) 0 Start Date: 12/22/22 Status: Ordered SUMAtriptan 100 mg oral tablet (19 sources) Serotonin-1b and Serotonin-1d Receptor Agonist Start: 04-26-2017 take 1 tablet by mouth once as needed SUMAtriptan (IMITREX) 100 MG tablet Take 1 tablet by mouth once as needed 0 04/26/2017 Active Start: 04-26-2017 SUMAtriptan (I MITREX) 100 MG tablet take 1 tablet by loan th every two hours Imitrex 100 MG Oral Tablet TAKE 1 TABLET AT ONSET OF MIGRAINE HEADACHE. MAY REPEAT IN 2 HOURS IF NEEDED. Quantity: 0 Refills: 0 Ordered: 23-Apr-2023 DO Active terbinafine 250 mg oral tablet (3 sources) Allylamine Antifungal Start: 12-02-2022 take 1 tablet by mouth once daily terbinafine (LAMISIL) 250 MG tablet Take 1 tablet by mouth daily 0 12/02/2022 Active tiZANidine 4 mg oral tablet (10 sources) Central alpha-2 Adrenergic Agonist Start: 04-05-2021 take 1 tablet by mouth at bedtime tiZANidine (ZANAFLEX) 4 MG tablet TAKE 1 TABLET BY MOUTH AT BEDTIME 0 04/05/2021 Active Completed/Discontinued Medications Medication Drug Class(es) Dates Sig (Normalized) Sig (Original) K-Effervescent 25 mEq oral tablet, effervescent (1 source) Start: 12-22-2022 End: 12-17-2023 take 1 tablet by mouth twice daily K-Effervescent 25 mEq oral tablet, effervescent 25 mEq = 1 tab(s), Oral, BID, X 30 day(s), # 60 tab(s), Refills(s) 11, Pharmacy: [id number], 165, cm, 12/22/22 13:39:00 EDT, Height/Length Dosing, 75, kg, 12/22/22 13:39:00 EDT, Weight Dosing Start Date: 12/22/22 Stop Date: 12/17/23 Status: Ordered Ketorolac (2 sources) Nonsteroidal Anti-inflammatory Drug, Cyclooxygenase Inhibitor Start: 11-16-2014 Toradol per 15 mg Oct, 60 mg Start: 07-15-2012 Toradol per 15 mg Jun, 60 mg Potassium Citrate 99 MG CAPS (4 sources) Potassium Citrat e 99 MG CAPS Once daily Quantity: 0 Refills: 0 Ordered: 23-Apr-2023 DO Active Spravato (56 MG Dose) SOPK (4 sources) Spravato (56 MG Dose) SOPK as directed Quantity: 0 Refills: 0 Ordered: 23-Apr-2023 DO Active Problems Active Problems Problem Classification Problem Date Documented Da te Episodic/Chronic Administrative/social admission (2 sources) Person consulting for explanation of examination or test findings; Translations: [Person consulting for explanation of examination or test findings] Onset: 07-30-2023 Episodic Anxiety disorders (5 sources) Mixed anxiety and depressive disorder; Translations: [Anxiety disorder, unspecified] Onset: 07-09-2022 06-06-2021 Chronic Calculus of urinary tract (12 sources) Kidney stone; Translations: [Calculus of kidney] Onset: 07-08-2022 Episodic Epilepsy; convulsions (4 sources) Other generalized epilepsy and epileptic syndromes, not intractable, without status epilepticus; Translations: [Grand mal seizure] Chronic Gastritis and duodenitis (2 sources) Chronic antral gastritis 07-03-2021 Chronic Headache; including migraine (6 sources) Migraine; Translations: [Migraine, unspecified, without mention of intractable migraine without mention of status migrainosus] 06-06-2021 Chronic Headache; including migraine (1 source) Headache; including migraine; Translations: [HEADACHE UNSPECIFIED] Onset: 02-11-2023 Malaise and fatigue (6 sources) Fatigue; Translations: [Weakness] Onset: 02-09-2023 06-06-2021 Episodic Mood disorders (9 sources) Severe recurrent major depression without psychotic features; Translations: [Major depressive disorder, recurrent severe without psychotic features] Onset: 07-09-2022 11-17-2022 Chronic Mood disorders (1 source) Mood disorders; Translations: [DEPRESSION UNSPECIFIED] Onset: 02-11-2023 Mycoses (1 source) Candidal stomatitis Episodic Nausea and vomiting (1 source) Nausea with vomiting, unspecified; Translations: [NAUSEA WITH VOMITING UNSPECIFIED] Onset: 02-11-2023 Episodic Other aftercare (1 source) Other termite technician (current) drug therapy; Translations: [OTH INSTRUMENT REPAIR SPECIALIST CURRENT DRUG THERAPY] Onset: 02-11-2023 Episodic Other connective tissue disease (6 sources) Fibromyalgia; Translations: [Myalgia and myositis, unspecified] 06-06-2021 Episodic Other female genital disorders (1 source) Postcoital bleeding; Translations: [Postcoital and contact bleeding] Chronic Other female genital disorders (1 source) Postcoital and contact bleeding; Translations: [Postcoital and contact bleeding] Onset: 06-18-2022 Chronic Other female genital disorders (2 sources) H/O: menorrhagia; Translations: [History of menorrhagia] Episodic Other gastrointestinal disorders (2 sources) Irritable bowel syndrome 07-03-2021 Chronic Other gastrointestinal disorders (2 sources) Alteration in bowel elimination 06-11-2021 Episodic Other gastrointestinal disorders (1 source) Diarrhea, unspecified; Translations: [DIARRHEA UNSPECIFIED] Onset: 02-11-2023 Episodic Other infections; including parasitic (4 sources) Personal history of other infectious and parasitic diseases; Translations: [Personal history of COVID-19] Episodic Other lower respiratory disease (5 sources) Dyspnea; Translations: [Shortness of breath] Onset: 07-30-2023 Episodic Other lower respiratory disease (1 source) Shortness of breath; Translations: [Shortness of breath] Onset: 05-13-2023 Episodic Other lower respiratory disease (2 sources) Shortness of breath; Translations: [Shortness of breath] Onset: 06-09-2023 Episodic Other non-traumatic joint disorders (2 sources) Joint pain 06-06-2021 Episodic Other nutritional; endocrine; and metabolic disorders (2 sources) Unintentional weight loss 06-06-2021 Episodic Other nutritional; endocrine; and metabolic disorders (4 sources) Overweight in adulthood with body mass index of 25 or more but less than 30; Translations: [Overweight] Episodic Other screening for suspected conditions (not mental disorders or infectious disease) (9 sources) Mammography abnormal; Translations: [Electrocardiogram abnormal] Onset: 06-09-2023 Episodic Other upper respiratory infections (1 source) Acute pharyngitis, unspecified Episodic Residual codes; unclassified (2 sources) Flushing; Translations: [Flushing] Episodic Residual codes; unclassified (1 source) Flushing; Translations: [Flushing] Onset: 01-01-2023 Episodic Residual codes; unclassified (1 source) Acquired absence of both cervix and uterus; Translations: [ACQUIRED ABSENCE BOTH CERVIX AND UTERUS] Onset: 02-11-2023 Episodic Screening and history of mental health and substance abuse codes (5 sources) Personal history of nicotine dependence; Translations: [Ex-smoker] Onset: 07-09-2022 Episodic Syncope (7 sources) Syncope; Translations: [Syncope and collapse] Onset: 06-09-2023 Episodic Unclassified (1 source) Cancer cervix screening status; Translations: [Screening for cervical cancer] Unclassified (2 sources) Patient encounter status; Translations: [Screening mammogram, encounter for] Unclassified (2 sources) Body mass index 20-24 - normal 06-11-2021 Unclassified (1 source) PERSONAL HISTORY OF COVID-19; Translations: [PERSONAL HISTORY OF COVID-19] Onset: 02-11-2023 Unclassified (2 sources) COUGH, UNSPECIFIED; Translations: [COUGH, UNSPECIFIED] Onset: 07-08-2022 Viral infection (2 sources) COVID-19; Translations: [COVID-19] Onset: 07-08-2022 Past or Other Problems Problem Classification Problem Date Documented Da te Episodic/Chronic Abdominal pain (6 sources) Pain in pelvis; Translations: [Pelvic and perineal pain] Onset: 07-02-2022 Episodic Allergic reactions (2 sources) Contact dermatitis due to poison loli; Translations: [Allergic contact dermatitis due to plants, except food] Onset: 05-01-2023 Episodic Fluid and electrolyte disorders (1 source) Dehydration; Translations: [DEHYDRATION] Onset: 07-09-2022 Episodic Genitourinary symptoms and ill-defined conditions (9 sources) Dysuria; Translations: [Dysuria] Onset: 07-30-2022 Episodic Inflammatory diseases of female pelvic organs (1 source) Acute vulvitis; Translations: [Acute vulvitis] Onset: 08-14-2022 Episodic Other circulatory disease (1 source) Hypotension, unspecified; Translations: [HYPOTENSION UNSPECIFIED] Onset: 07-09-2022 Episodic Other connective tissue disease (4 sources) Myalgia, unspecified site; Translations: [MYALGIA UNSPECIFIED SITE] Onset: 07-06-2022 Episodic Residual codes; unclassified (1 source) Other specified health status; Translations: [OTHER SPECIFIED HEALTH STATUS] Onset: 08-04-2022 Episodic Unclassified (1 source) COUGH, UNSPECIFIED; Translations: [COUGH, UNSPECIFIED] Onset: 07-04-2022 Unclassified (4 sources) Patient status finding; Translations: [Patient new to provider] Results Test Name Value Interpretation Reference Range Facil ity Ambulatory Visit Summaryon 1 Ambulatory Visit Summary ANDREA LONG :1980 Visit Date:07/06/2023 Ambulatory Visit Instructions Your Diagnosis Bilateral kidney stones Tests Performed Urnls Dip Stick Auto w/o Microscopy POC 16284 XR Abdomen 1 View -- Results Pending -- Please visit your patient portal for your results or contact your primary care physician. Your Care Team Attending Physician - Roney VILLALTA MD Primary Care Physician - CAITLIN FINCH CNP This Is Your Medications List potassium citrate (Urocit-K 10 mEq Tab-ER) Contact prescribing physician if questions or concerns acetaminophen (Tylenol) clonazepam (Klonopin 1 mg Tab) esketamine (Spravato 28 mg (56 mg dose) nasal spray) fluoxetine (Prozac 40 mg Cap) gabapentin (gabapentin 800 mg Tab) ibuprofen levetiracetam (Keppra 250 mg Tab) modafinil (modafinil 200 mg Tab) phentermine (Adipex-P) sumatriptan (Imitrex 100 mg Tab) tizanidine (tiZANidine 4 mg Tab) Procedures Performed Colonoscopy (06/26/2021), EGD - Esophagogastroduodenoscopy (06/26/2021), Partial hysterectomy (11/12/2020), Fracture of bone of nasal sinus (09/28/2017), Appendectomy. Discharge Vitals Heart Rate (Peripheral) 70 Respiratory Rate 16 Blood Pressure 134/88 Height 165 cm Height 65 in Weight 75.2 kg Weight 165.44 lb BMI 27.62 What to do next Scheduled Follow-Up Appointments Thursday 12:45 PM EDT With: Roney VILLALTA MD Where: [facility] Patient Educationon 07-06-20 Patient Education Nephrology Dietary Guidelines to Help Prevent Kidney Stones Kidney stones are deposits of minerals and salts that form inside your kidneys. Your risk of developing kidney stones may be greater depending on your diet, your lifestyle, the medicines you take, and whether you have certain medical conditions. Most people can lower their chances of developing kidney stones by following the instructions below. Your dietitian may give you more specific instructions depending on your overall health and the type of kidney stones you tend to develop. What are tips for following this plan? Reading food labels ? Choose foods with no salt added or low-salt labels. Limit your salt (sodium) intake to less than 1,500 mg a day. ? Choose foods with calcium for each meal and snack. Try to eat about 300 mg of calcium at each meal. Foods that contain 200?500 mg of calcium a serving include: ? 8 oz (237 mL) of milk, [id number] milk, and calcium-fortifiedfruit juice. Calcium-fortified means that calcium has been added to these drinks. ? 8 oz (237 mL) of kefir, yogurt, and soy yogurt. ? 4 oz (114 g) of tofu. ? 1 oz (28 g) of cheese. ? 1 cup (150 g) of dried figs. ? 1 cup (91 g) of cooked broccoli. ? One 3 oz (85 g) can of sardines or mackerel. Most people need 1,000?1,500 mg of calcium a day. Talk to your dietitian about how much calcium is recommended for you. Shopping ? Buy plenty of fresh fruits and vegetables. Most people do not need to avoid fruits and vegetables, even if these foods contain nutrients that may contribute to kidney stones. ? When shopping for convenience foods, choose: ? Whole pieces of fruit. ? Pre-made salads with dressing on the side. ? Low-fat fruit and yogurt smoothies. ? Avoid buying frozen meals or prepared deli foods. These can be high in sodium. ? Look for foods with live cultures, such as yogurt and kefir. ? Choose high-fiber grains, such as whole-wheat breads, oat bran, and wheat cereals. Cooking ? Do not add salt to food when cooking. Place a salt shaker on the table and allow each person to add his or her own salt to taste. ? Use vegetable protein, such as beans, textured vegetable protein (TVP), or tofu, instead of meat in pasta, casseroles, and soups. Meal planning ? Eat less salt, if told by your dietitian. To do this: ? Avoid eating processed or pre-made food. ? Avoid eating fast food. ? Eat less animal protein, including cheese, meat, poultry, or fish, if told by your dietitian. To do this: ? Limit the number of times you have meat, poultry, fish, or cheese each week. Eat a diet free of meat at least 2 days a week. ? Eat only one serving each day of meat, poultry, fish, or seafood. ? When you prepare animal protein, cut pieces into small portion sizes. For most meat and fish, one serving is about the size of the palm of your hand. ? Eat at least five servings of fresh fruits and vegetables each day. To do this: ? Keep fruits and vegetables on hand for snacks. ? Eat one piece of fruit or a handful of berries with breakfast. ? Have a salad and fruit at lunch. ? Have two kinds of vegetables at dinner. ? Limit foods that are high in a substance called oxalate. These include: ? Spinach (cooked), rhubarb, beets, sweet potatoes, and Togolese chard. ? Peanuts. ? Potato chips, british fries, and baked potatoes with skin on. ? Nuts and nut products. ? Chocolate. ? If you regularly take a diuretic medicine, make sure to eat at least 1 or 2 servings of fruits or vegetables that are high in potassium each day. These include: ? Avocado. ? Banana. ? Larose, prune, carrot, or tomato juice. ? Baked potato. ? Cabbage. ? Beans and split peas. Lifestyle ? Drink enough fluid to keep your urine pale yellow. This is the most important thing you can do. Spread your fluid intake throughout the day. ? If you drink alcohol: ? Limit how much you use to: ? 0?1 drink a day for women who are not . ? 0?2 drinks a day for men. ? Be aware of how much alcohol is in your drink. In the [place] one drink equals one 12 oz bottle of beer (355 mL), one 5 oz glass of wine (148 mL), or one 1? oz glass of hard liquor (44 mL). ? Lose weight if told by your health care provider. Work with your dietitian to find an eating plan and weight loss strategies that work best for you. General information ? Talk to your health care provider and dietitian about taking daily supplements. You may be told the following depending on your health and the cause of your kidney stones: ? Not to take supplements with vitamin C. ? To take a calcium supplement. ? To take a daily probiotic supplement. ? To take other supplements such as magnesium, fish oil, or vitamin B6. ? Take gpyl-aup-nvhbsvd and prescription medicines only as told by your health care provider. These include supplements. What foods should I limit? Limit your in (more content not included)... Normal [facility] RAD - MISCon 07-06-2023 [facility] [id number] FF Normal [facility] Urology Office/Clinic Noteon 07-06-2023 Urology Office/Clinic Note Chief Complaint kidney stones HPI Staff 6m KUB DX: BL Kidney Stones *Started on Effer-K 25 mEq BID at time of last encounter Dysuria: no Incomplete bladder emptying: no Hematuria: no Frequency: every couple of hours Urgency: yes Nocturia: varies 0-4x Stream: no straining Leaking: yes Post void dripping: no Wearing pads/ Depends: wears pads at night sometimes Urge incontinence: if she can't get to a bathroom right away Stress incontinence: no Incontinence without Sensory Awareness: states that she has urinated in her bed and was totally unaware. Thinks it is the muscle relaxant that she is taking Abdominal pain: uncomfortable due to IBS Flank pain: right sided sharp that comes and goes Sexual complaints: no History of Present Illness Tests reviewed: reviewed UA and KUB. I have reviewed the previous health record information and history for this patient from . I have reviewed and verified the staff HPI to be accurate for this encounter. There have been no associated fever, chills, flank pain, or blood in the urine. Denies any urinary infections since last encounter. Review of Systems PHQ Score Initial Depression Screen Score: 0 ROS - Provider Constitutional: denies weight loss, denies hot flashes. Eyes: denies eye problems. Gastrointestinal: denies nausea, denies vomiting. Cardiovascular: denies chest pain or angina. Integumentary: no dryness Musculoskeletal: denies musculoskeletal symptoms. ENMT: denies otolaryngeal symptoms. Respiratory: no shortness of breath. Heme/Lymph: denies easy bleeding tendency, denies easy bruising tendency. Psychiatric: no confusion, no anxiety. Genitourinary: See HPI. Physical Exam Vitals & Measurements HR: 70(Peripheral) RR: 16 BP: 134/88 HT: 65 in HT: 165 cm WT: 75.2 kg WT: 165.44 lb BMI: 27.62 General Appearance: alert , no acute distress, well nourished, well developed female. Genitourinary: bladder nonpalpable, no flank pain. Assessment/Plan 1. Bilateral kidney stones (N20.0: Calculus of kidney) KUB 07/02/22 - Suspect bilateral stones with several tiny calcifications projecting over the kidneys. A small distal right ureteral stone cannot be excluded. CT AP wo con 07/04/22 - Bilateral nonobstructing nephrolithiasis but unremarkable ureters. Metabolic workup 09/03/22 - Volume 2150, slightly L. U24 citric acid 292 L. Pt is currently taking Effer-K 25 mEq BID. KUB 04/06/23 - no stones noted. KUB 07/03/23 - 3 punctate stone in the Lt kidney, and 2 punctate stones in the Rt kidney seen on the CT from 07/04/22 are not seen, no new stones noted Pt denies any stone passage since prior OV. Discussed imaging findings with pt, has small stones noted. Advised pt that the Effer-K has been preventing the current stones to grow and new stones to form. Will continue to monitor. Pt states she is not sure if she needs refills. Follow up in 1 yr w/KUB. All questions/concerns were discussed. Pt to call the office if she encounters any issues prior. Pt acknowledges understanding. -Will order KUB. -Pt is to call our office if she needs refills. Follow-up With When Contact Information PAWAN HAWLEY, AZAM Mckeon In 1 year [facility] [address] , [place] [address]- Additional Instructions: w/KUB Patient Education Dietary Guidelines to Help Prevent Kidney Stones I, Dinah Nguyễn , personally scribed for Dr. Villalta on 07/06/2023 14:21:29. . Documentation recorded by the scribe, Dinah Nguyễn, accurately reflects the services(s) I performed and decisions made by me. Problem List/Past Medical History Ongoing Anxiety and depression Arthralgia Bilateral kidney stones BMI 24.0-24.9, adult Change in bowel habits Chronic antral gastritis Dysuria Fatigue Fibromyalgia IBS (irritable bowel syndrome) Kidney stone Migraines Weight loss, unintentional Historical No qualifying data Procedure/Surgical History Colonoscopy (06/26/2021), EGD - Esophagogastroduodenoscopy (06/26/2021), Partial hysterectomy (11/12/2020), Fracture of bone of nasal sinus (09/28/2017), Appendectomy. Medications Adipex-P, Oral, Daily, Not taking gabapentin 800 mg Tab ibuprofen Imitrex 100 mg Tab, Oral, Once Keppra 250 mg Tab, Oral, BID Klonopin 1 mg Tab, See Instructions modafinil 200 mg Tab Prozac 40 mg Cap, Oral, Daily Spravato 28 mg (56 mg dose) nasal spray, Nasal, qWeek tiZANidine 4 mg Tab, Oral, q8hr Tylenol, Oral Urocit-K 10 mEq Tab-ER, 20 mEq= 2 tab(s), Oral, BID, 11 refills Allergies Reglan (Agitation) penicillin (Rash) Social History Tobacco Former smoker, quit more than 30 days ago Tobacco Use:. Never Smokeless Tobacco Use:. 1 per day. Started age 16.0 Years. Stopped age 26 Years., 12/22/2022 Family History Diabetes mellitus type 2: Mother. Hyperlipidemia: Mother. Hypertension: Mother. Immunizations Vaccine Date Stat (more content not included)... Normal [facility] Comment on above: Result Comment: Elec tronically Signed By: Roney VILLALTA MD\.br\Date and Time Signed: 07/06/23 14:23 EDT\.br\Electronically Co-Signed By: Dinah Nguyễn.br\Date and Time Co-Signed: 07/06/23 14:21 EDT RAD - MISCon 07-03-2023 RAD - [facility] [id number] FF Normal [facility] Echocardiogramon 06-09-[address], [address], [place] [address] TRANSTHORACIC ECHOCARDIOGRAM REPORT Patient Name: ANDREA Jasno Physician: [id number] Crystal Bone MD, [facility] Study Date: 06/09/2023 Referring SHANEKA DIAZ Physician: MRN/PID: [id number] PCP: Caitlin Finch Accession/Order#: [id number] Department [facility] Location: Date of : 1980 Fellow: Gender: F Nurse: Anjelica Gaming RN Admit Date: Wheel And Pinion Inspector: Ana Javier RDCS, RVT Height: 165.10 cm CC Report to: Weight: 78.02 kg Study Type: Echocardiogram BSA: 1.86 m2 Diagnosis/ICD: R94.31-Abnormal electrocardiogram [ECG] [EKG]; R06.02-Shortness of breath; H54-Jhdkezn Indication: Former Smoker, Overweight, Fibromyalgia, COVID-19 2021 Procedure/CPT: Echo Complete w Full Doppler-[id number] Study Detail: The following Echo studies were performed: 2D, M-Mode, Doppler and color flow. Agitated saline used as a contrast agent for intraseptal flow evaluation. PHYSICIAN INTERPRETATION: Left Ventricle: Left ventricular systolic function is normal, with an estimated ejection fraction of 65-70%. There are no regional wall motion abnormalities. The left ventricular cavity size is normal. Spectral Doppler shows a normal pattern of left ventricular diastolic filling. Left Atrium: The left atrium is normal in size. Right Ventricle: The right ventricle is normal in size. There is normal right ventricular global systolic function. Right Atrium: The right atrium is normal in size. Aortic Valve: The aortic valve appears structurally normal. There is no evidence of aortic valve regurgitation. The peak instantaneous gradient of the aortic valve is 4.7 mmHg. The mean gradient of the aortic valve is 2.0 mmHg. Mitral Valve: The mitral valve is mildly thickened. There is mild mitral valve regurgitation. Tricuspid Valve: The tricuspid valve is structurally normal. There is trace tricuspid regurgitation. Pulmonic Valve: The pulmonic valve is structurally normal. There is no indication of pulmonic valve regurgitation. Pericardium: There is no pericardial effusion noted. Aorta: The aortic root is normal. Systemic Veins: The inferior vena cava appears to be of normal size. CONCLUSIONS: 1. Left ventricular systolic function is normal with a 65-70% estimated ejection fraction. 2. Mild mitral valve regurgitation. QUANTITATIVE DATA SUMMARY: 2D MEASUREMENTS: Normal Ranges: Ao Root d: 2.60 cm (2.0-3.7cm) LAs: 2.80 cm (2.7-4.0cm) RVIDd: 2.20 cm (0.9-3.6cm) IVSd: 1.00 cm (0.6-1.1cm) LVPWd: 0.90 cm (0.6-1.1cm) LVIDd: 4.70 cm (3.9-5.9cm) LVIDs: 2.70 cm LV Mass Index: 82.7 g/m2 LV % FS 42.6 % LV SYSTOLIC FUNCTION BY 2D PLANIMETRY (MOD): Normal Ranges: EF-A4C View: 73.5 % (>=55%) LV DIASTOLIC FUNCTION: Normal Ranges: MV Peak E: 0.95 m/s (0.7-1.2 m/s) MV Peak A: 0.78 m/s (0.42-0.7 m/s) E/A Ratio: 1.23 (1.0-2.2) MV lateral e' 0.12 m/s MV medial e' 0.07 m/s E/e' Ratio: 8.30 (<8.0) MITRAL VALVE: Normal Ranges: MV Vmax: 0.94 m/s (<=1.3m/s) MV peak P.5 mmHg (<5mmHg) MV mean P.0 mmHg (<48mmHg) MITRAL INSUFFICIENCY: Normal Ranges: MR Vmax: 354.00 cm/s dP/dt: 699 mmHg/s (>1200mmHg/sec) AORTIC VALVE: Normal Ranges: AoV Vmax: 1.08 m/s (<=1.7m/s) AoV Peak P.7 mmHg (<20mmHg) AoV Mean P.0 mmHg (1.7-11.5mmHg) LVOT Max Song: 0.70 m/s (<=1.1m/s) AoV VTI: 23.60 cm (18-25cm) LVOT VTI: 15.80 cm LVOT Diameter: 2.00 cm (1.8-2.4cm) AoV Area, VTI: 2.10 cm2 (2.5-5.5cm2) AoV Area,Vmax: 2.04 cm2 (2.5-4.5cm2) AoV Dimensionless Index: 0.67 TRICUSPID VALVE/RVSP: Normal Ranges: Peak TR Velocity: 2.14 m/s RV Syst Pressure: 21.3 mmHg (< 30mmHg) PULMONIC VALVE: Normal Ranges: PV Max Song: 0.5 m/s (0.6-0.9m/s) PV Max P.9 mmHg [id number] Crystal Bone MD, [facility] Electronically signed on 06/12/2023 at 5:55:30 PM Final Normal [facility] CA tilt table teston 023 CA tilt table test [facility] [place] [address] Cardiology Report Signed Patient: Andrea Long MR#: [id number] : 1980 Acct:[id number] Age/Sex: 43 / F ADM Date: 05/13/23 Loc: Room: Type: [facility] Attending Dr: Shaneka Diaz MD Copies to: Anya Watkins MD Ordering Provider: Anya Watkins MD Date of Service: 05/13/23 CA/CA tilt table test: syncope and/or near syncope REASON FOR STUDY: Episode of lightheadedness, dizziness and orthostatic symptomatology. REFERRING PHYSICIAN: Shaneka Diaz MD PROCEDURE: The patient underwent standard head-up tilt table test. She received total of 250 mL of normal saline, and then the patient was tilted to the upright position after establishing continuous blood pressure, O2 sat and heart rate monitoring. The patient initially reported some minor dizziness, but demonstrated appropriate hemodynamic response to tilt maneuver. Then nitroglycerin was administered. The patient continued to complain of vague, mild dizziness, but maintained good blood pressure and demonstrated normal physiologic response to nitroglycerin administration. No hypotension was induced. CONCLUSION: 1. This is a normal head-up tilt table test. The patient demonstrated appropriate and physiologic response to tilt maneuver and nitroglycerin administration. 2. The patient reported ongoing dizziness throughout the test. 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) Fibromyalgia (729.1) (M79.7) Depression (311) (F32.A) Syncope (780.2) (R55) Migraines (346.90) (G43.909) Shortness of breath (786.05) (R06.02) Overweight with body mass index (BMI) of 28 to 28.9 in adult (278.02,V85.24) (E66.3,Z68.28) Former smoker (V15.82) (Z87.891) Abnormal EKG (794.31) (R94.31) Patient new to provider Personal history of COVID-19 (V12.09) (Z86.16) Orders Abnormal EKG, Shortness of breath, Syncope Echocardiogram; Status:Hold For - Scheduling; Requested for:[id number]; IO Holter Monitor up to 48 Hrs; Status:Active - Perform Order; Requested for:[id number]; Tilt Table; Status:Hold For - Scheduling; Requested for:[id number]; SocHx: Former smoker Tobacco Use Screening; Status:Complete; Done: 64Tph2019 Syncope IO EKG Electrocardiogram- 12 Lead; Status:Complete; Done: [id number] Patient Instructions Please bring all medicines, vitamins, and herbal supplements with you when you come to the office. Prescriptions will not be filled unless you are compliant with your follow up appointments or have a follow up appointment scheduled as per instruction of your physician. Refills should be requested at the time of your visit. Tilt 48 hour holter Echo with bubble study Follow-up after testing completed Chief Complaint ANDREA LONG is being seen for a consultation for syncope, orthostatic hypotension. History of Present Illness 43-year-old female is accompanied by her mother to the office. Patient has a long history of multiple medical conditions. She is being seen in cardiology consultation at the request of Dr. Ragsdale neurology, for recurrent syncopal spells. I have reviewed the available records in chart. Patient interviewed and examined. She is borderline orthostatic with blood pressure going from 124/90 sitting to 118/84 standing she has had migraine headaches apparently since age 18 of late, she reports that the migraine headaches feel different. She is having tingling and some weakness in her left upper and lower extremity when she gets a migraine. She is closely followed by neurology and psychiatry. She has had at least 2 episodes of syncope. Both occurred while she was standing, trying to get some food out of the refrigerator. She does not have any recollection other than she woke up on the ground. Another time she apparently had a syncopal episode which was felt to be a seizure. She reports history of my fibromyalgia and is on disability. She denies any tonic-clonic activities or bowel or bladder incontinence she denies palpitations. She has a hard time staying focused says that her brain feels like it is in fog all the time. Medications were reviewed. 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 She gives history of kidney stones for which she takes potassium citrate. She reports that her seizures were felt to be related to Wellbutrin. She denies alcohol or illicit drug use. She has a teenage son who lives with her and is a great source of support. Her mother is also a great source of emotional support. Her fianc currently works out of town. No history of diabetes No family history of sudden cardiac Not orthostatic in fact blood pressure is reported to be 154/102 supine, 152/104 sitting and 148/104 standing. Recheck blood pressure was 124/90 sitting and 118/84 standing EKG shows normal sinus rhythm at 86 bpm SD interval 116 ms QRS duration 78 ms QTc 435 ms and there is right atrial abnormality. Assessment: 1. Recurrent bouts of syncope possibly vasodepressor spells 2. I suspect whether the the seizures are hemodynamic in nature 3. Fibromyalgia 4. Migraine headaches 5. Labile blood pressure 6. Episodes of hypertension without a prior diagnosis of hypertension 7. Right atrial abnormality on EKG 8. Personal history of COVID-2021 9. Remains on potassium citrate for kidney stones Recommendations: 1. We will proceed with a tilt table test-procedure discussed 2. Echocardiogram 3. 48-hour Holter monitor 4. Follow-up after testing sooner if interval problems arise Thank you for allowing us to participate in Wesly's care, please do not hesitate to call if further questions arise, Sincerely, Shaneka Diaz MD [facility] Surgical History Problems History of Appendectomy History of Colonoscopy 2021 History of Esophagogastroduodenoscopy History of Hysterectomy Current Meds Medication NameInstruction clonazePAM 1 MG Oral TabletTAKE 1 TABLET EVERY 12 HOURS NEEDED. Gabapentin 800 MG Oral TabletTAKE 1 TABLET 3 TIMES DAILY. Imitrex 100 MG Oral TabletTAKE 1 TABLET AT ONSET OF MIGRAINE HEADACHE. MAY REPEAT IN 2 HOURS IF NEEDED. Keppra 500 MG Oral TabletTAKE 1 TABLET TWICE DAILY. Modafinil 200 MG Oral TabletTAKE 1 TABLET TWICE DAILY. Potassium Citrate 99 MG CAPSOnce daily PROzac 40 MG Oral CapsuleTAKE 2 CAPSULES DAILY. Spravato (56 MG (more content not included)... Normal [facility] PHQ-2 VITALSon 04-23-2023 PHQ-2 VITALS Yes [facility] 250 DO Work Phone: CBC AUTO DIFFon 02-09-2023 BASO # 0.0 103/ul Normal 0.0-0.1 [facility] Comment on above: Performed By: #### N A24U, [id number] #### [facility] [address] [place] [address] Dr. Manjinder Forman Basophils/100 WBC (Bld) 0.8 % Normal 0.2-2.0 [facility] Comment on above: Performed By: #### N A24U, [id number] #### [facility] [address] [place] [address] Dr. Manjinder Forman EO # 0.0 103/ul Normal 0.0-0.7 [facility] Comment on above: Performed By: #### N A24U, [id number] #### [facility] [address] [place] [address] Dr. Manjinder Forman Eosinophils/100 WBC (Bld) 0.8 % Critically low 0.9-7. 0 [facility] Comment on above: Performed By: #### N A24U, [id number] #### [facility] [address] [place] [address] Dr. Manjinder Forman Erythrocyte distribution wid th (RBC) [Ratio] 12.1 % Normal 11.0-15.0 [facility] Comment on above: Performed By: #### N A24U, [id number] #### [facility] [address] [place] [address] Dr. Manjinder Forman Hematocrit (Bld) [Volume fraction] 39.0 % Normal 3 6.0-48.0 [facility] Comment on above: Performed By: #### N A24U, [id number] #### [facility] [address] [place] [address] Dr. Manjinder Forman Hemoglobin (Bld) [Mass/Vol] 13.0 g/dL Normal 12.0-16. 0 [facility] Comment on above: Performed By: #### N A24U, [id number] #### [facility] [address] [place] [address] Dr. Manjinder Forman IG # 0.02 10e3/ul Normal 0.00-0.03 [facility] Comment on above: Performed By: #### N A24U, [id number] #### [facility] [address] [place] [address] Dr. Manjinder Forman IG % 0.5 % Normal 0.0-0.5 [facility] Comment on above: Performed By: #### N A24U, [id number] #### [facility] [address] [place] [address] Dr. Manjinder Forman LYMPH # 0.9 103/ul Critically low 1.2-3.8 [facility] Comment on above: Performed By: #### N A24U, [id number] #### [facility] [address] [place] [address] Dr. Manjinder Forman Lymphocytes/100 WBC (Bld) 21.9 % Normal 20.5-60.0 [facility] Comment on above: Performed By: #### N A24U, [id number] #### [facility] [address] [place] [address] Dr. Manjinder Forman MANUAL DIFF REQ NO Normal [facility] Comment on above: Performed By: #### N A24U, [id number] #### [facility] [address] [place] [address] Dr. Manjinder Forman MCH (RBC) [Entitic mass] 31.5 pg Normal 26.7-34.0 [facility] Comment on above: Performed By: #### N A24U, [id number] #### [facility] [address] [place] [address] Dr. Manjinder Forman MCHC (RBC) [Mass/Vol] 33.3 g/dL Normal 29.9-35.2 [facility] Comment on above: Performed By: #### N A24U, [id number] #### [facility] [address] [place] [address] Dr. Manjinder Forman MCV (RBC) [Entitic vol] 94.4 fL Normal 81.0-99.0 [facility] Comment on above: Performed By: #### N A24U, [id number] #### [facility] [address] [place] [address] Dr. Manjinder Forman MONO # 0.5 103/ul Normal 0.3-0.8 [facility] Comment on above: Performed By: #### N A24U, [id number] #### [facility] [address] [place] [address] Dr. Manjinder Forman Monocytes/100 WBC (Bld) 11.5 % Normal 1.7-12.0 [facility] Comment on above: Performed By: #### N A24U, [id number] #### [facility] [address] [place] [address] Dr. Manjinder Forman NEUT # 2.5 103/ul Normal 1.4-6.5 [facility] Comment on above: Performed By: #### N A24U, [id number] #### [facility] [address] [place] [address] Dr. Manjinder Forman Neutrophils/100 WBC (Bld) 64.5 % Normal 43.0-75.0 The [facility] Comment on above: Performed By: #### N A24U, [id number] #### [facility] [address] [place] [address] Dr. Manjinder Forman Platelet mean volume (Bld) [ Entitic vol] 10.0 fL Normal 9.5-13.5 The [facility] Comment on above: Performed By: #### N A24U, [id number] #### [facility] [address] [place] [address] Dr. Manjinder Forman PLT 289 103/ul Normal 150-450 The [facility] Comment on above: Performed By: #### N A24U, [id number] #### [facility] [address] [place] [address] Dr. Manjinder Forman RBC 4.13 106/ul Critically low 4.20-5.40 The [facility] Comment on above: Performed By: #### N A24U, [id number] #### [facility] [address] [place] [address] Dr. Manjinder Forman WBC 3.9 103/ul Critically low 4.0-11.0 The [facility] Comment on above: Performed By: #### N A24U, [id number] #### [facility] [address] [place] [address] Dr. Manjinder Forman DRUG SCREEN RAPID (URINE)on 02-09-2023 AMP Positive Abnormal NEGATIVE The [facility] Comment on above: Performed By: #### D RUGRPD, ERUR, PREGU #### [facility] [address] [place] [address] Dr. Manjinder Forman BAR Negative Normal NEGATIVE The [facility] Comment on above: Performed By: #### D RUGRPD, ERUR, PREGU #### [facility] [address] [address] [address] Manjinder Forman BUP Negative Normal NEGATIVE The [facility] Comment on above: Performed By: #### D RUGRPD, ERUR, PREGU #### [facility] [address] [place] [address] Dr. Manjinder Forman BZO Positive Abnormal NEGATIVE The [facility] Comment on above: Performed By: #### D RUGRPD, ERUR, PREGU #### [facility] [address] [place] [address] Dr. Manjinder Forman BAO Negative Normal NEGATIVE The [facility] Comment on above: Performed By: #### D RUGRPD, ERUR, PREGU #### [facility] [address] [place] [address] Dr. Manjinder Forman CUT-OFFS SEE BELOW Normal The [facility] Comment on above: Result Comment: AMP (Amphetamine): 500ng/mL, BAR (Barbituates): 200 ng/mL, BZO (Benzodiazepines): 150 ng/mL, BUP (Buprenorphine): 10 ng/mL, BAO (Cocaine): 150 ng/mL, mAMP (Methamphetamine): 500 ng/mL, MTD (Methadone): 200 ng/mL, OPI (Opiates): 100 ng/mL, OXY (Oxycodone): 100 ng/mL, PCP (Phencyclidine): 25 ng/mL, PPX (Propoxyphene): 300 ng/mL, THC (Cannabinoids): 50 ng/mL, TCA (Trycyclic Antidepressants): 300 ng/mL Performed By: #### D RUGRPD, ERUR, PREGU #### [facility] [address] [place] [address] Dr. Manjinder Forman DRUG CUT HEADER DRUG CLASS TEST SYST EM CUT-OFF CONCENTRATIONS ARE FOLLOWS: Normal The [facility] Comment on above: Performed By: #### D RUGRPD, ERUR, PREGU #### [facility] [address] [place] [address] Dr. Manjinder Forman mAMP Negative Normal NEGATIVE [facility] Comment on above: Performed By: #### D RUGRPD, ERUR, PREGU #### [facility] [address] [place] [address] Dr. Manjinder Forman MTD Negative Normal NEGATIVE [facility] Comment on above: Performed By: #### D RUGRPD, ERUR, PREGU #### [facility] [address] [place] [address] Dr. Manjinder Forman OPI Negative Normal NEGATIVE [facility] Comment on above: Performed By: #### D RUGRPD, ERUR, PREGU #### [facility] [address] [place] [address] Dr. Manjinder Forman OXY Negative Normal NEGATIVE The [facility] Comment on above: Performed By: #### D RUGRPD, ERUR, PREGU #### [facility] [address] [place] [address] Dr. Manjinder Forman PCP Negative Normal NEGATIVE [facility] Comment on above: Performed By: #### D RUGRPD, ERUR, PREGU #### [facility] [address] [place] [address] Dr. Manjinder Forman PPX Negative Normal NEGATIVE [facility] Comment on above: Performed By: #### D RUGRPD, ERUR, PREGU #### [facility] [address] [place] [address] Dr. Manjinder Forman TCA Negative Normal NEGATIVE [facility] Comment on above: Performed By: #### D RUGRPD, ERUR, PREGU #### [facility] [address] [place] [address] Dr. Manjinder Forman THC Negative Normal NEGATIVE The [facility] Comment on above: Performed By: #### D RUGRPD, ERUR, PREGU #### [facility] [address] [place] [address] Dr. Manjinder Forman ER URINE PROFILEon 3 Bilirubin Ql (U) Negative Normal NEGATIVE The [facility] Comment on above: Performed By: #### D RUGRPD, ERUR, PREGU #### [facility] [address] [address] [address] Manjinder Forman Clarity (U) CLEAR Normal CLEAR The [facility] Comment on above: Performed By: #### D RUGRPD, ERUR, PREGU #### [facility] [address] [address] [address] Manjinder Forman Color (U) LT. YELLOW Normal YELLOW The [facility] Comment on above: Performed By: #### D RUGRPD, ERUR, PREGU #### [facility] [address] [address] [address] Manjinder WALLACE A micrscopic examina tion will be performed if indicated. Normal The [facility] Comment on above: Performed By: #### D RUGRPD, ERUR, PREGU #### [facility] [address] [address] [address] Manjinder Forman Glucose Ql (U) Negative Normal NEGATIVE The [facility] Comment on above: Performed By: #### D RUGRPD, ERUR, PREGU #### [facility] [address] [address] [address] Manjinder Forman Hemoglobin Ql (U) Negative Normal NEGATIVE The [facility] Comment on above: Performed By: #### D RUGRPD, ERUR, PREGU #### [facility] [address] [address] [address] Manjinder Forman Ketones Ql (U) Negative Normal NEGATIVE The [facility] Comment on above: Performed By: #### D RUGRPD, ERUR, PREGU #### [facility] [address] [address] [address] Manjinder Forman LEUKOCYTES Negative Normal NEGATIVE The [facility] Comment on above: Performed By: #### D RUGRPD, ERUR, PREGU #### [facility] [address] [address] [address] Manjinder Forman Nitrite Ql (U) Negative Normal NEGATIVE [facility] Comment on above: Performed By: #### D RUGRPD, ERUR, PREGU #### [facility] [address] [place] [address] Dr. Manjinder Forman pH (U) 7.0 [pH] Normal 5-9 [facility] Comment on above: Performed By: #### D RUGRPD, ERUR, PREGU #### [facility] [address] [place] [address] Dr. Manjinder Forman SPEC GRAVITY <=1.005 Abnormal 1.005-<=1.025 [facility] Comment on above: Performed By: #### D RUGRPD, ERUR, PREGU #### [facility] [address] [address] [address] Manjinder Forman UA PROTEIN Negative Normal NEGATIVE/ TRACE [facility] Comment on above: Performed By: #### D RUGRPD, ERUR, PREGU #### [facility] [address] [place] [address] Dr. Manjinder Fomran UR MICRO IND NOT INDICATED Normal [facility] Comment on above: Performed By: #### D RUGRPD, ERUR, PREGU #### [facility] [address] [place] [address] Dr. Manjinder Forman Urobilinogen Qn (U) 0.2 {Gabi'U}/dL Normal 0.2 - 1. 0 [facility] Comment on above: Performed By: #### D RUGRPD, ERUR, PREGU #### [facility] [address] [place] [address] Dr. Manjinder Forman URon 02-09-2023 , QUAL Negative Normal NEGATIVE [facility] Comment on above: Performed By: #### D RUGRPD, ERUR, PREGU #### [facility] [address] [place] [address] Dr. Manjinder Forman PROF 14(COMP METB)on 023 Albumin [Mass/Vol] 3.8 g/dL Normal 3.4-5.[address] [facility] Comment on above: Performed By: #### H STROPN, CMP #### [facility] [address] [place] [address] Dr. Manjinder Forman Albumin/Globulin [Mass ratio] 1.2 {ratio} Normal [facility] Comment on above: Performed By: #### H STROPN, CMP #### [facility] [address] [address] [address] Manjinder Forman ALP [Catalytic activity/Vol] 87 U/L Normal 46-116 [facility] Comment on above: Performed By: #### H STROPN, CMP #### [facility] [address] [address] [address] Manjinder Forman ALT [Catalytic activity/Vol] 31 U/L Normal 14-59 [facility] Comment on above: Performed By: #### H STROPN, CMP #### [facility] [address] [address] [address] Manjinder Forman Anion gap [Moles/Vol] 21.4 mmol/L Normal [facility] Comment on above: Performed By: #### H STROPN, CMP #### [facility] [address] [address] [address] Manjinder Forman AST [Catalytic activity/Vol] 24 U/L Normal 15-37 [facility] Comment on above: Performed By: #### H STROPN, CMP #### [facility] [address] [address] [address] Manjinder Forman Bilirubin [Mass/Vol] 0.3 mg/dL Normal 0.2-1.0 [facility] Comment on above: Performed By: #### H STROPN, CMP #### [facility] [address] [address] [address] Manjinder Forman Calcium [Mass/Vol] 8.9 mg/dL Normal 8.5-10.[address] [facility] Comment on above: Performed By: #### H STROPN, CMP #### [facility] [address] [address] [address] Manjinder Forman Chloride [Moles/Vol] 105 mmol/L Normal 98-107 [facility] Comment on above: Performed By: #### H STROPN, CMP #### [facility] [address] [address] [address] Manjinder Forman CO2 [Moles/Vol] 19.1 mmol/L Critically low 21.0-32.0 [facility] Comment on above: Performed By: #### H RON, CMP #### [facility] [address] [address] [address] Manjinder Forman Creatinine [Mass/Vol] 0.81 mg/dL Normal 0.55-1.02 [facility] Comment on above: Performed By: #### H STROPN, CMP #### [facility] [address] [address] [address] Manjinder Forman EGFR-AF [place] >60 Normal >=60 [facility] Comment on above: Performed By: #### H RON, CMP #### [facility] [address] [address] [address] Manjinder Forman EGFR-NON AF [place] >60 Normal >=60 [facility] Comment on above: Performed By: #### H RON, CMP #### [facility] [address] [address] [address] Manjinder Forman Globulin (S) [Mass/Vol] 3.1 g/dL Normal [facility] Comment on above: Performed By: #### H RON, CMP #### [facility] [address] [address] [address] Manjinder Forman Glucose [Mass/Vol] 103 mg/dL Normal 74-106 [facility] Comment on above: Performed By: #### H RON, CMP #### [facility] [address] [address] [address] Manjinder Forman Potassium [Moles/Vol] 3.5 mmol/L Normal 3.5-5.1 [facility] Comment on above: Performed By: #### H JUANPN, CMP #### [facility] [address] [address] [address] Manjinder Forman Protein [Mass/Vol] 6.9 g/dL Normal 6.4-8.[address] [facility] Comment on above: Performed By: #### H JUANPN, CMP #### [facility] [address] [address] [address] Manjinder Forman Sodium [Moles/Vol] 142 mmol/L Normal 136-[address] [facility] Comment on above: Performed By: #### H STROPN, CMP #### [facility] [address] [address] [address] Manjinder Forman Urea nitrogen [Mass/Vol] 12.0 mg/dL Normal 7.0-18.0 [facility] Comment on above: Performed By: #### H STROPN, CMP #### [facility] [address] [address] [address] Manjinedr Forman Urea nitrogen/Creatinine [Mass ratio] 14.8 mg/mg Normal [facility] Comment on above: Performed By: #### H RON, CMP #### [facility] [address] [address] [address] Manjinder Forman Cult,Urineon 01-02-2023 Cult,Urine Specimen Description .CLEAN CATCH URINE Culture NO SIGNIFICANT GROWTH Report Status FINAL 01/02/2023 Normal [facility] Comment on above: Performed By: #### U RC #### [facility] [address], [place] [id number] Concrete Puddler: Ruddy Morales MD [facility] [address] [place], [place] [address] [address] Concrete Puddler: Jana Mei MD Estradiolon 01-02-2023 Estradiol 72.1 pg/mL Normal 27-314 [facility] Comment on above: Result Comment: FEMALES: Normally menstruating Luteal phase 33-298 Follicular phase 27-156 Midcycle phase 48-314 Postmenopausal (untreated) 5-50 Fulvestrant treatment will show an increased estradiol concentration with this methodology. Alternate methodologies are available upon request. Performed By: #### E 2, FSH, LH #### [facility] [address], [place] [id number] Concrete Puddler: Ruddy Morales MD Follicle Stim. Hormon 2022 Follicle Stim. Horm 64.8 mIU/mL High 1.7-21.5 [facility] Comment on above: Result Comment: Refe rence Range: Male: 1.5-12.4 Ovulating Female: Follicular Phase 3.5-12.5 Ovulation Phase 4.7-21.5 Luteal Phase 1.7-7.7 Postmenopausal Female: 25.8-134.8 Performed By: #### E 2, FSH, LH #### [address] [address] Concrete Puddler: Ruddy Morales MD Luteinizing Hormoneon 2022 Luteinizing Hormone 40.9 mIU/mL Normal 1.0-95.6 [facility] Comment on above: Result Comment: Refe rence Range: Male: 1.7-8.6 Ovulating Female: Follicular Phase 2.4-12.6 Ovulation Phase 14.0-95.6 Luteal Phase 1.0-11.4 Postmenopausal Female: 7.7-58.5 Performed By: #### E 2, FSH, LH #### [address] [address] Concrete Puddler: Ruddy Morales MD Vaginitis DNA Probeon 2022 Analy Negative Normal NEG [facility] Comment on above: Result Comment: for Analy sp. Method of testing is a DNA probe intended for detection and identification of Analy species, Gardnerella vaginalis, and Trichomonas vaginalis nucleic acid in vaginal fluid specimens from patients with symptoms of vaginitis/vaginosis. Performed By: #### V AGP #### [address] [address] Concrete Puddler: Ruddy Morales MD [address] [place] [address] Concrete Puddler: Jana Mei MD Gardnerella Negative Normal NEG [facility] Comment on above: Result Comment: for Gardnerella vaginalis Performed By: #### V AGP #### [address] [address] Concrete Puddler: Ruddy Morales MD [facility] [address] [place] [address] [place] [address] Concrete Puddler: Jana Mei MD Trichomonas Negative Normal NEG [facility] Comment on above: Result Comment: for Trichomonas Vaginalis Performed By: #### V AG #### [facility] [address] [place] [address] Concrete Puddler: Ruddy Morales MD [facility] [address] [place] [address] Concrete Puddler: Jana Mei MD Estradiolon 01-01-2023 Estradiol 72.1 pg/mL 27 - 314 pg/mL [facility] Comment on above: FEMALES: Normally menstruating Luteal phase 33-298 Follicular phase 27-156 Midcycle phase 48-314 Postmenopausal (untreated) 5-50 Fulvestrant treatment will show an increased estradiol concentration with this methodology. Alternate methodologies are available upon request. Follicle Stimulating Hormone on 01-01-2023 FSH 64.8 High [facility] Comment on above: Reference Range: Male: 1.5-12.4 Ovulating Female: Follicular Phase 3.5-12.5 Ovulation Phase 4.7-21.5 Luteal Phase 1.7-7.7 Postmenopausal Female: 25.8-134.8 Interpretation and review of laboratory results Abnormal [facility] Luteinizing Hormoneon 2022 LH 40.9 [facility] Comment on above: Reference Range: Male: 1.7-8.6 Ovulating Female: Follicular Phase 2.4-12.6 Ovulation Phase 14.0-95.6 Luteal Phase 1.0-11.4 Postmenopausal Female: 7.7-58.5 No Panel Informationon 01-01 [facility] Vaginitis DNA Probeon 2022 Analy Species, DNA Probe Negative NEGATIVE [facility] Comment on above: for Analy sp. Method of testing is a DNA probe intended for detection and identification of Analy species, Gardnerella vaginalis, and Trichomonas vaginalis nucleic acid in vaginal fluid specimens from patients with symptoms of vaginitis/vaginosis. Gardnerella Vaginalis, DNA Probe Negative NEG ATIVE [facility] Comment on above: for Gardnerella vagi nalis Source .VAGINAL SWAB [facility] Trichomonas Vaginalis DNA Negative NEGATIVE [facility] Comment on above: for Trichomonas Vagi nalis [facility] Source .VAGINAL SWAB Normal [facility] Comment on above: Performed By: #### V AGP #### [facility] [address] [place] [address] Concrete Puddler: Ruddy Morales MD [facility] [address] [place] [address] Concrete Puddler: Jana Mei MD Ambulatory Visit Summaryon 0 12-22-2022 Ambulatory Visit Summary ANDREA LONG :1980 Visit Date:12/22/2022 Ambulatory Visit Instructions Your Diagnosis Bilateral kidney stones Tests Performed XR Abdomen 1 View -- Results Pending -- Please visit your patient portal for your results or contact your primary care physician. Your Care Team Attending Physician - Roney VILLALTA MD Primary Care Physician - CAITLIN FINCH CNP This Is Your Medications List potassium bicarbonate (K-Effervescent 25 mEq oral tablet, effervescent) Contact prescribing physician if questions or concerns acetaminophen (Tylenol) clonazepam (Klonopin 1 mg Tab) esketamine (Spravato 28 mg (56 mg dose) nasal spray) fluoxetine (Prozac 40 mg Cap) gabapentin (gabapentin 300 mg Cap) ibuprofen levetiracetam (Keppra 250 mg Tab) phentermine (Adipex-P) sumatriptan (Imitrex 100 mg Tab) tizanidine (tiZANidine 4 mg Tab) Procedures Performed Colonoscopy (06/26/2021), EGD - Esophagogastroduodenoscopy (06/26/2021), Partial hysterectomy (11/12/2020), Fracture of bone of nasal sinus (09/28/2017), Appendectomy. Discharge Vitals Heart Rate (Peripheral) 72 Respiratory Rate 16 Blood Pressure 140/82 Height 165 cm Height 65 in Weight 75 kg Weight 165 lb BMI 27.55 What to do next Scheduled Follow-Up Appointments Thursday 12:45 PM EDT With: VILLALTA MD, Roney R Where: [facility] Cherie Hebert [facility] Patient Educationon 12-23-19 23 Patient Education Urology Dietary Guidelines to Help Prevent Kidney Stones Kidney stones are deposits of minerals and salts that form inside your kidneys. Your risk of developing kidney stones may be greater depending on your diet, your lifestyle, the medicines you take, and whether you have certain medical conditions. Most people can reduce their chances of developing kidney stones by following the instructions below. Depending on your overall health and the type of kidney stones you tend to develop, your dietitian may give you more specific instructions. What are tips for following this plan? Reading food labels ? Choose foods with no salt added or low-salt labels. Limit your sodium intake to less than 1500 mg per day. ? Choose foods with calcium for each meal and snack. Try to eat about 300 mg of calcium at each meal. Foods that contain 200?500 mg of calcium per serving include: ? 8 oz (237 ml) of milk, fortified nondairy milk, and fortified fruit juice. ? 8 oz (237 ml) of kefir, yogurt, and soy yogurt. ? 4 oz (118 ml) of tofu. ? 1 oz of cheese. ? 1 cup (300 g) of dried figs. ? 1 cup (91 g) of cooked broccoli. ? 1?3 oz can of sardines or mackerel. ? Most people need 1000 to 1500 mg of calcium each day. Talk to your dietitian about how much calcium is recommended for you. Shopping ? Buy plenty of fresh fruits and vegetables. Most people do not need to avoid fruits and vegetables, even if they contain nutrients that may contribute to kidney stones. ? When shopping for convenience foods, choose: ? Whole pieces of fruit. ? Premade salads with dressing on the side. ? Low-fat fruit and yogurt smoothies. ? Avoid buying frozen meals or prepared deli foods. ? Look for foods with live cultures, such as yogurt and kefir. Cooking ? Do not add salt to food when cooking. Place a salt shaker on the table and allow each person to add his or her own salt to taste. ? Use vegetable protein, such as beans, textured vegetable protein (TVP), or tofu instead of meat in pasta, casseroles, and soups. Meal planning ? Eat less salt, if told by your dietitian. To do this: ? Avoid eating processed or premade food. ? Avoid eating fast food. ? Eat less animal protein, including cheese, meat, poultry, or fish, if told by your dietitian. To do this: ? Limit the number of times you have meat, poultry, fish, or cheese each week. Eat a diet free of meat at least 2 days a week. ? Eat only one serving each day of meat, poultry, fish, or seafood. ? When you prepare animal protein, cut pieces into small portion sizes. For most meat and fish, one serving is about the size of one deck of cards. ? Eat at least 5 servings of fresh fruits and vegetables each day. To do this: ? Keep fruits and vegetables on hand for snacks. ? Eat 1 piece of fruit or a handful of berries with breakfast. ? Have a salad and fruit at lunch. ? Have two kinds of vegetables at dinner. ? Limit foods that are high in a substance called oxalate. These include: ? Spinach. ? Rhubarb. ? Beets. ? Potato chips and british fries. ? Nuts. ? If you regularly take a diuretic medicine, make sure to eat at least 1?2 fruits or vegetables high in potassium each day. These include: ? Avocado. ? Banana. ? Larose, prune, carrot, or tomato juice. ? Baked potato. ? Cabbage. ? Beans and split peas. General instructions ? Drink enough fluid to keep your urine clear or pale yellow. This is the most important thing you can do. ? Talk to your health care provider and dietitian about taking daily supplements. Depending on your health and the cause of your kidney stones, you may be advised: ? Not to take supplements with vitamin C. ? To take a calcium supplement. ? To take a daily probiotic supplement. ? To take other supplements such as magnesium, fish oil, or vitamin B6. ? Take all medicines and supplements as told by your health care provider. ? Limit alcohol intake to no more than 1 drink a day for non women and 2 drinks a day for men. One drink equals 12 oz of beer, 5 oz of wine, or 1? oz of hard liquor. ? Lose weight if told by your health care provider. Work with your dietitian to find strategies and an eating plan that works best for you. What foods are not recommended? Limit your intake of the following foods, or as told by your dietitian. Talk to your dietitian about specific foods you should avoid based on the type of kidney stones and your overall health. Grains Breads. Bagels. Rolls. Baked goods. Salted crackers. Cereal. Pasta. Vegetables Spinach. Rhubarb. Beets. Canned vegetables. Pickles. Olives. Meats and other protein foods Nuts. Nut butters. Large portions of meat, poultry, or fish. Salted or cured meats. Deli meats. Hot dogs. Sausages. Dairy Cheese. Beverages Regular soft drinks. Regular vegetable juice. Seasonings and other foods Seasoning blends with salt. Salad dr (more content not included)... Normal [facility] Urology Office/Clinic Noteon 12-22-2022 Urology Office/Clinic Note Chief Complaint 3m Metabolic Work Up HPI Staff 3m metabolic work up & KUB due to BL Kidney Stones & Dysuria. Pt states she did not receive order for KUB Metabolic Work UP done 09/03/22. No Urology Meds at this time. Pt was unable to provide urine specimen at this time. Still having Rt flank/Back Pain Denies pain/burning and blood in urine. History of Present Illness Tests reviewed: reviewed UA, metabolic workup. I have reviewed the previous health record information and history for this patient from Dr. Villalta. I have reviewed and verified the staff HPI to be accurate for this encounter. There have been no associated fever, chills, flank pain, or blood in the urine. Denies any urinary infections since last encounter. Review of Systems PHQ Score Initial Depression Screen Score: 4 ROS - Provider Constitutional: denies weight loss, denies hot flashes. Eyes: denies eye problems. Gastrointestinal: denies nausea, denies vomiting. Cardiovascular: denies chest pain or angina. Integumentary: no dryness Musculoskeletal: denies musculoskeletal symptoms. ENMT: denies otolaryngeal symptoms. Respiratory: no shortness of breath. Heme/Lymph: denies easy bleeding tendency, denies easy bruising tendency. Psychiatric: no confusion, no anxiety. Genitourinary: See HPI. Physical Exam Vitals & Measurements HR: 72(Peripheral) RR: 16 BP: 140/82 HT: 65 in HT: 165 cm WT: 75 kg WT: 165 lb BMI: 27.55 General Appearance: alert , mild distress, well nourished, well developed female. Genitourinary: bladder nonpalpable, no flank pain. Assessment/Plan Pt recently started Spravato for TRD, has been having emotional SEs due to this. In mild distress today. 1. Bilateral kidney stones (N20.0: Calculus of kidney) KUB 07/02/22 - Suspect bilateral stones with several tiny calcifications projecting over the kidneys. A small distal right ureteral stone cannot be excluded. CT AP wo con 07/04/22 - Bilateral nonobstructing nephrolithiasis but unremarkable ureters. Metabolic workup 09/03/22 - Volume 2150, slightly L. U24 citric acid 292 L. No sample provided for UA today. Did not have KUB done for appt. Still having Rt flank/back pain. Denies pain/burning, blood in urine. Reviewed results of met workup with pt. Follow up 6 mos with KUB or sooner if needed. Pt understands and agrees with plan. -Start Effer-K 25 mEq BID. Rx sent to [facility] Recommended [facility]. Follow-up With When Contact Information PAWAN HAWLEY, Roney Kumar, URL [facility] [address], [place] [address]- Additional Instructions: 6 mos KUB Patient Education Dietary Guidelines to Help Prevent Kidney Stones Jennifer Hogan, personally scribed for Dr. Villalta on 12/22/2022 14:35:07. . Documentation recorded by the scribe, Jennifer Griffiths, accurately reflects the services(s) I performed and decisions made by me. Authenticated by Dr. Villalta on 12/22/2022 14:37:16. Problem List/Past Medical History Ongoing Anxiety and depression Arthralgia Bilateral kidney stones BMI 24.0-24.9, adult Change in bowel habits Chronic antral gastritis Dysuria Fatigue Fibromyalgia IBS (irritable bowel syndrome) Kidney stone Migraines Weight loss, unintentional Historical No qualifying data Procedure/Surgical History Colonoscopy (06/26/2021), EGD - Esophagogastroduodenoscopy (06/26/2021), Partial hysterectomy (11/12/2020), Fracture of bone of nasal sinus (09/28/2017), Appendectomy. Medications Adipex-P, Oral, Daily gabapentin 300 mg Cap, Oral, TID ibuprofen Imitrex 100 mg Tab, Oral, Once Keppra 250 mg Tab, Oral, BID Klonopin 1 mg Tab, See Instructions Prozac 40 mg Cap, Oral, Daily Spravato 28 mg (56 mg dose) nasal spray, Nasal, qWeek tiZANidine 4 mg Tab, Oral, q8hr Tylenol, Oral Allergies Reglan (Agitation) penicillin (Rash) Social History Tobacco Former smoker, quit more than 30 days ago Tobacco Use:. Never Smokeless Tobacco Use:. 1 per day. Started age 18.0 Years. Stopped age 26 Years., 12/22/2022 Family History Diabetes mellitus type 2: Mother. Hyperlipidemia: Mother. Hypertension: Mother. Immunizations Vaccine Date Status diphtheria/pertussis, acel/tetanus adult 09/05/2015 Recorded influenza, whole 07/23/2009 Recorded Normal [facility] Comment on above: Result Comment: Elec tronically Signed By: Roney VILLALTA MD\.br\Date and Time Signed: 12/22/22 14:37 EDT\.br\Electronically Co-Signed By: Jennifer Griffiths\.br\Date and Time Co-Signed: 12/22/22 14:35 EDT Lab Reportson 09-12-2022 Lab Reports [id number] D:127 Normal [facility] CITRATE URINE 24HRon 022 Citric Acid, U, 24hr 292 mg/24 hr Critically low 320-1240 [facility] Comment on above: Result Comment: This test was developed and its performance characteristics determined by [facility]. It has not been cleared or approved by the Food and Drug Administration. Performed By: #### D DIM #### [facility] [address] [place] [address] Dr. Manjinder Forman Citric Acid, Urine 136 mg/L Normal Undefined [facility] Comment on above: Performed By: #### D DIM #### [facility] [address] [address] [address] Manjinder Forman OXALATE 24HR URINEon 09-05- 022 Oxalates, Urine 6 mg/L Normal Undefined [facility] Comment on above: Performed By: #### H STROPN, CMP #### [facility] [address] [address] [address] Manjinder Forman Oxalates, Urine 24hr 13 mg/24 hr Normal 4-31 [facility] Comment on above: Performed By: #### H STROPN, CMP #### [facility] [address] [address] [address] Manjinder Forman MAGNESIUM 24HR URINEon 09-04 Magnesium 24hr Urine 47.3 mg/24 hr Normal 12.0-293.0 T [facility] Comment on above: Performed By: #### N A24U, [id number] #### [facility] [address] [address] [address] Manjinder Forman Magnesium UR 2.2 mg/dL Normal Not Estab. The [facility] Comment on above: Performed By: #### N A24U, [id number] #### [facility] [address] [address] [address] Manjinder Forman PHOSPHORUS 24HR URINEon Phosphorus, Urine 30.2 mg/dL Normal Not Estab. The [facility] Comment on above: Performed By: #### H STROPN, CMP #### [facility] [address] [place] [address] Dr. Manjinder Forman Phosphorus, Urine 24hr 649 mg/24 hr Normal 261-1078 [facility] Comment on above: Performed By: #### H STROPN, CMP #### [facility] [address] [place] [address] Dr. Manjinder Forman PTH INTACTon 09-04-2022 PTH, Intact 32 pg/mL Normal 15-65 [facility] Comment on above: Performed By: #### D DIM #### [facility] [address] [address] [address] Manjinder Forman URIC ACID 24 HR URINEon Uric Acid, Urine 18.6 mg/dL Normal Not Estab. The [facility] Comment on above: Performed By: #### D DIM #### [facility] [address] [place] [address] Dr. Manjinder Forman Uric Acid, Urine 24hr 399.9 mg/24 hr Normal 173.7-902. 1 [facility] Comment on above: Performed By: #### D DIM #### [facility] [address] [place] [address] Dr. Manjinder Forman BUNon 09-03-2022 Urea nitrogen [Mass/Vol] 8.0 mg/dL Normal 7.0-18.0 [facility] Comment on above: Performed By: #### H RON, CMP #### [facility] [address] [place] [address] Dr. Manjinder Forman CALCIUMon 09-03-2022 Calcium [Mass/Vol] 9.0 mg/dL Normal 8.5-10.[address] [facility] Comment on above: Performed By: #### H RON, CMP #### [facility] [address] [place] [address] Dr. Manjinder Forman CALCIUM 24 HR URINEon 2021 CALC, 24 HR UR 107.5 mg/24 hr Normal 100.0-300.0 [facility] Comment on above: Performed By: #### D DIM #### [facility] [address] [place] [address] Dr. Manjinder Forman UR CALCIUM 5.0 mg/dL Critically low 5.1-21.0 [facility] Comment on above: Performed By: #### D DIM #### [facility] [address] [place] [address] Dr. Manjinder Forman CHLORIDEon 09-03-2022 Chloride [Moles/Vol] 102 mmol/L Normal 98-107 [facility] Comment on above: Performed By: #### D DIM #### [facility] [address] [place] [address] Dr. Manjinder Forman CO2on 09-03-2022 CO2 [Moles/Vol] 29.7 mmol/L Normal 21.0-32.0 [facility] Comment on above: Performed By: #### D DIM #### [facility] [address] [place] [address] Dr. Manjinder DIMAS 24 HR URINEon 2 CREA, 24 HR UR 760.24 mg/24 hr Critically low 800.00-1,800 .00 [facility] Comment on above: Performed By: #### N A24U, [id number] #### [facility] [address] [place] [address] Dr. Manjinder Forman UR TOT VOL 2150 ml/24 HR Normal [facility] Comment on above: Performed By: #### N A24U, [id number] #### [facility] [address] [place] [address] Dr. Manjinder Forman Performed By: #### D DIM #### [facility] [address] [place] [address] Dr. Manjinder Forman URINE CREAT 35.36 mg/dL Normal 20.00-300.00 [facility] Comment on above: Performed By: #### N A24U, [id number] #### [facility] [address] [place] [address] Dr. Manjinder Forman CREATININEon 09-03-2022 Creatinine [Mass/Vol] 0.87 mg/dL Normal 0.55-1.02 [facility] Comment on above: Performed By: #### H STROPN, CMP #### [facility] [address] [place] [address] Dr. Manjinder Forman EGFR-AF [place]IZ[place] >60 Normal >=60 [facility] Comment on above: Performed By: #### H STROPN, CMP #### [facility] [address] [place] [address] Dr. Manjinder Forman EGFR-NON AF [place]IZ[place] >60 Normal >=60 [facility] Comment on above: Performed By: #### H STROPN, CMP #### [facility] [address] [place] [address] Dr. Manjinder Forman NAon 09-03-2022 Sodium [Moles/Vol] 137 mmol/L Normal 136-[address] [facility] Comment on above: Performed By: #### H RON, CMP #### [facility] [address] [place] [address] Dr. Manjinder Forman POTASSIUMon 09-03-2022 Potassium [Moles/Vol] 4.1 mmol/L Normal 3.5-5.1 [facility] Comment on above: Performed By: #### H RON, CMP #### [facility] [address] [place] [address] Dr. Manjinder Forman SODIUM 24 HR URINEon 022 NA, 24 HR UR 153 mmol/24 hr Normal 40-220 [facility] Comment on above: Performed By: #### N A24U, [id number] #### [facility] [address] [place] [address] Dr. Manjinder Forman Sodium (U) [Moles/Vol] 71 mmol/L Normal 30-90 [facility] Comment on above: Performed By: #### N A24U, [id number] #### [facility] [address] [place] [address] Dr. Manjinder Forman URIC ACID SERUMon 09-03-2022 Urate [Mass/Vol] 5.1 mg/dL Normal 2.6-6.0 [facility] Comment on above: Performed By: #### H RON, CMP #### [facility] [address] [place] [address] Dr. Manjinder Forman Formson 09-02-2022 Forms [id number] :127 Normal [facility] Physician Referralon 022 Physician Referral [id number]:127 Normal [facility] Ambulatory Visit Summaryon 1 11-02-2021 Ambulatory Visit Summary MARISELA LONGMILLI Olvera :1980 Visit Date:09/01/2022 Ambulatory Visit Instructions Your Diagnosis Bilateral kidney stones Dysuria Tests Performed XR Abdomen 1 View -- Results Pending -- Please visit your patient portal for your results or contact your primary care physician. Your Care Team Attending Physician - Roney VILLALTA MD Primary Care Physician - CAITLIN FINCH CNP Referring Physician - CAITLIN FINCH CNP This Is Your Medications List Contact prescribing physician if questions or concerns acetaminophen (Tylenol) clonazepam (Klonopin 1 mg Tab) fluoxetine (Prozac 40 mg Cap) gabapentin (gabapentin 300 mg Cap) ibuprofen levetiracetam (Keppra 250 mg Tab) sumatriptan (Imitrex 100 mg Tab) tizanidine (tiZANidine 4 mg Tab) Procedures Performed Colonoscopy (06/26/2021), EGD - Esophagogastroduodenoscopy (06/26/2021), Partial hysterectomy (11/12/2020), Fracture of bone of nasal sinus (09/28/2017), Appendectomy. Discharge Vitals Heart Rate (Peripheral) 75 Respiratory Rate 16 Blood Pressure 137/88 Height 165 cm Height 65 in Weight 75 kg Weight 165 lb BMI 27.55 What to do next You Need to Schedule the Following Appointments Follow Up with PAWAN HAWLEY, Roney Kumar, [place] When: Where: [facility] [address], [place] [address]- Medications What How Much When Instructions Unchanged acetaminophen (Tylenol) By Mouth Contact prescribing physician if questions or concerns Unchanged clonazepam (Klonopin 1 mg Tab) See instructions tid prn Contact prescribing physician if questions or concerns Unchanged fluoxetine (Prozac 40 mg Cap) By Mouth Every day Contact prescribing physician if questions or concerns Unchanged gabapentin (gabapentin 300 mg Cap) By Mouth 3 times a day Contact prescribing physician if questions or concerns Unchanged ibuprofen Contact prescribing physician if questions or concerns Unchanged levetiracetam (Keppra 250 mg Tab) By Mouth 2 times a day Contact prescribing physician if questions or concerns Unchanged sumatriptan (Imitrex 100 mg Tab) By Mouth Once Contact prescribing physician if questions or concerns Unchanged tizanidine (tiZANidine 4 mg Tab) By Mouth Every 8 hours Contact prescribing physician if questions or concerns Allergies Reglan (Agitation) penicillin (Rash) Problems Ongoing - Any problem that you are currently receiving treatment for. Anxiety and depression Arthralgia Bilateral kidney stones BMI 24.0-24.9, adult Change in bowel habits Chronic antral gastritis Dysuria Fatigue Fibromyalgia IBS (irritable bowel syndrome) Kidney stone Migraines Weight loss, unintentional Education Materials Dietary Guidelines to Help Prevent Kidney Stones Kidney stones are deposits of minerals and salts that form inside your kidneys. Your risk of developing kidney stones may be greater depending on your diet, your lifestyle, the medicines you take, and whether you have certain medical conditions. Most people can reduce their chances of developing kidney stones by following the instructions below. Depending on your overall health and the type of kidney stones you tend to develop, your dietitian may give you more specific instructions. What are tips for following this plan? Reading food labels ? Choose foods with no salt added or low-salt labels. Limit your sodium intake to less than 1500 mg per day. ? Choose foods with calcium for each meal and snack. Try to eat about 300 mg of calcium at each meal. Foods that contain 200?500 mg of calcium per serving include: ? 8 oz (237 ml) of milk, fortified nondairy milk, and fortified fruit juice. ? 8 oz (237 ml) of kefir, yogurt, and soy yogurt. ? 4 oz (118 ml) of tofu. ? 1 oz of cheese. ? 1 cup (300 g) of dried figs. ? 1 cup (91 g) of cooked broccoli. ? 1?3 oz can of sardines or mackerel. ? Most people need 1000 to 1500 mg of calcium each day. Talk to your dietitian about how much calcium is recommended for you. Shopping ? Buy plenty of fresh fruits and vegetables. Most people do not need to avoid fruits and vegetables, even if they contain nutrients that may contribute to kidney stones. ? When shopping for convenience foods, choose: ? Whole pieces of fruit. ? Premade salads with dressing on the side. ? Low-fat fruit and yogurt smoothies. ? Avoid buying frozen meals or prepared deli foods. ? Look for foods with live cultures, such as yogurt and kefir. Cooking ? Do not add salt to food when cooking. Place a salt shaker on the table and allow each person to add his or her own salt to taste. ? Use vegetable protein, such as beans, textured vegetable protein (TVP), or tofu instead of meat in pasta, casseroles, and soups. Meal planning ? Eat less salt, if told by your dietitian. To do this: ? Avoid eating processed or premade food. ? Avoid eati (more content not included)... Normal [facility] Patient Educationon 09-01-20 Patient Education Urology Dietary Guidelines to Help Prevent Kidney Stones Kidney stones are deposits of minerals and salts that form inside your kidneys. Your risk of developing kidney stones may be greater depending on your diet, your lifestyle, the medicines you take, and whether you have certain medical conditions. Most people can reduce their chances of developing kidney stones by following the instructions below. Depending on your overall health and the type of kidney stones you tend to develop, your dietitian may give you more specific instructions. What are tips for following this plan? Reading food labels ? Choose foods with no salt added or low-salt labels. Limit your sodium intake to less than 1500 mg per day. ? Choose foods with calcium for each meal and snack. Try to eat about 300 mg of calcium at each meal. Foods that contain 200?500 mg of calcium per serving include: ? 8 oz (237 ml) of milk, fortified nondairy milk, and fortified fruit juice. ? 8 oz (237 ml) of kefir, yogurt, and soy yogurt. ? 4 oz (118 ml) of tofu. ? 1 oz of cheese. ? 1 cup (300 g) of dried figs. ? 1 cup (91 g) of cooked broccoli. ? 1?3 oz can of sardines or mackerel. ? Most people need 1000 to 1500 mg of calcium each day. Talk to your dietitian about how much calcium is recommended for you. Shopping ? Buy plenty of fresh fruits and vegetables. Most people do not need to avoid fruits and vegetables, even if they contain nutrients that may contribute to kidney stones. ? When shopping for convenience foods, choose: ? Whole pieces of fruit. ? Premade salads with dressing on the side. ? Low-fat fruit and yogurt smoothies. ? Avoid buying frozen meals or prepared deli foods. ? Look for foods with live cultures, such as yogurt and kefir. Cooking ? Do not add salt to food when cooking. Place a salt shaker on the table and allow each person to add his or her own salt to taste. ? Use vegetable protein, such as beans, textured vegetable protein (TVP), or tofu instead of meat in pasta, casseroles, and soups. Meal planning ? Eat less salt, if told by your dietitian. To do this: ? Avoid eating processed or premade food. ? Avoid eating fast food. ? Eat less animal protein, including cheese, meat, poultry, or fish, if told by your dietitian. To do this: ? Limit the number of times you have meat, poultry, fish, or cheese each week. Eat a diet free of meat at least 2 days a week. ? Eat only one serving each day of meat, poultry, fish, or seafood. ? When you prepare animal protein, cut pieces into small portion sizes. For most meat and fish, one serving is about the size of one deck of cards. ? Eat at least 5 servings of fresh fruits and vegetables each day. To do this: ? Keep fruits and vegetables on hand for snacks. ? Eat 1 piece of fruit or a handful of berries with breakfast. ? Have a salad and fruit at lunch. ? Have two kinds of vegetables at dinner. ? Limit foods that are high in a substance called oxalate. These include: ? Spinach. ? Rhubarb. ? Beets. ? Potato chips and british fries. ? Nuts. ? If you regularly take a diuretic medicine, make sure to eat at least 1?2 fruits or vegetables high in potassium each day. These include: ? Avocado. ? Banana. ? Larose, prune, carrot, or tomato juice. ? Baked potato. ? Cabbage. ? Beans and split peas. General instructions ? Drink enough fluid to keep your urine clear or pale yellow. This is the most important thing you can do. ? Talk to your health care provider and dietitian about taking daily supplements. Depending on your health and the cause of your kidney stones, you may be advised: ? Not to take supplements with vitamin C. ? To take a calcium supplement. ? To take a daily probiotic supplement. ? To take other supplements such as magnesium, fish oil, or vitamin B6. ? Take all medicines and supplements as told by your health care provider. ? Limit alcohol intake to no more than 1 drink a day for non women and 2 drinks a day for men. One drink equals 12 oz of beer, 5 oz of wine, or 1? oz of hard liquor. ? Lose weight if told by your health care provider. Work with your dietitian to find strategies and an eating plan that works best for you. What foods are not recommended? Limit your intake of the following foods, or as told by your dietitian. Talk to your dietitian about specific foods you should avoid based on the type of kidney stones and your overall health. Grains Breads. Bagels. Rolls. Baked goods. Salted crackers. Cereal. Pasta. Vegetables Spinach. Rhubarb. Beets. Canned vegetables. Pickles. Olives. Meats and other protein foods Nuts. Nut butters. Large portions of meat, poultry, or fish. Salted or cured meats. Deli meats. Hot dogs. Sausages. Dairy Cheese. Beverages Regular soft drinks. Regular vegetable juice. Seasonings and other foods Seasoning blends with salt. Salad dr (more content not included)... Normal [facility] Urology Office/Clinic Noteon 09-01-2022 Urology Office/Clinic Note Chief Complai nt kidney stones HPI Staff Referral for kidney stones. Pt was seen at [facility] ED 07/04/22 for right flank pain radiating to the abdomen with nausea. CT done shows bilateral nephrolithiasis but unremarkable ureters. Pt was recently treated for UTI and states that her gasoline engine inspector said her tissue around the urethra looked red. Dysuria: pt states she is having some burning after she urinates. Incomplete bladder emptying: no Hematuria: no Frequency: every couple of hours Urgency: yes Nocturia: several times Stream: steady most of the time Leaking: only if she waits too long Post void dripping: no Wearing pads/ Depends: Urge incontinence: no Stress incontinence: no Incontinence without Sensory Awareness: no Abdominal pain: bladder area pain Flank pain: right sided but not constant anymore Sexual complaints: no History of Present Illness Tests reviewed: referral records, CT scan, UA. I have reviewed the previous health record information and history for this patient from . I have reviewed and verified the staff HPI to be accurate for this encounter. There have been no associated fever, chills, flank pain, or blood in the urine. Denies any urinary infections since last encounter. Review of Systems PHQ Score Initial Depression Screen Score: 0 ROS - Provider Constitutional: denies weight loss, denies hot flashes. Eyes: denies eye problems. Gastrointestinal: denies nausea, denies vomiting. Cardiovascular: denies chest pain or angina. Integumentary: no dryness Musculoskeletal: denies musculoskeletal symptoms. ENMT: denies otolaryngeal symptoms. Respiratory: no shortness of breath. Heme/Lymph: denies easy bleeding tendency, denies easy bruising tendency. Psychiatric: no confusion, no anxiety. Genitourinary: denies vaginal discharge, denies incontinence, denies dysuria, denies hematuria, denies urinary frequency, denies amenorrhea, denies menorrhagia, denies abnormal bleeding, denies pelvic pain, denies genital sores, and denies decreased libido. Physical Exam Vitals & Measurements HR: 75(Peripheral) RR: 16 BP: 137/88 HT: 65 in HT: 165 cm WT: 75 kg WT: 165 lb BMI: 27.55 General Appearance: alert , no acute distress, well nourished, well developed female. Head: normocephalic . Eyes: normal orbit and globe. ENMT: normal examination of external ears. Chest: Lungs CTA, respirations non labored . Cardiovascular: regular rate and rhythm. Abdomen: soft, non distended, no tenderness, no mass or organomegaly, no hernia. Genitourinary: bladder nonpalpable, no flank tenderness. Lymph Nodes: unremarkable palpation of the cervical area. Skin: warm, dry, no bruising. Psychiatric: cooperative, affect appropriate for age, normal judgement, euthymic mood. Assessment/Plan 1. Bilateral kidney stones (N20.0: Calculus of kidney) New patient referred for kidney stones. Pt was seen at [facility] ED 07/04/22 for right flank pain radiating to the abdomen with nausea. KUB done 07/02/22 shows suspect bilateral stones with several tiny calcifications projecting over the kidneys. Stable small right pelvic calcifications favor phleboliths. A small distal right ureteral stone cannot be excluded. CT AP wo con done 07/04/22 shows bilateral nonobstructing nephrolithiasis but unremarkable ureters. Pt does not believe that she has passed any stones. Stones are small and do not warrant tx at this time. Likely metabolic disease due to number of bilateral small stones. Discussed met workup: blood work and 24 hour urine. PE today: slight bilateral tenderness, pt states more pain on right. Recommended pt. to increase fluid intake to ten to twelve 16oz bottles a day; preferably water, clear pop, and sugar free lemonade. All questions/concerns were discussed. Pt. to call the office if sheencounters any issues prior. Pt. acknowledges understanding and agrees with plan. Follow up in 3 mos with KUB, met workup results. 2. Dysuria (R30.0: Dysuria) Pt states she is having some burning after she urinates. Pt was recently treated for UTI by gasoline engine inspector. UA today negative for blood and infection. Discussed pain could be due to small stone passing. Pt denies difficulty with urination. High fluid intake should help with dysuria. Follow-up With When Contact Information PAWAN HAWLEY, Roney Kumar, URL [facility] [address], [place] [address]- Additional Instructions: f/u 3 mos w/KUB, met workup results Patient Education Dietary Guidelines to Help Prevent Kidney Stones I, Jennifer Griffiths, personally scribed for Dr. Villalta on 09/01/2022 13:29:52. . Documentation recorded by the scribe, Jennifer Griffiths, accurately reflects the services(s) I performed and decisions made by me. Authenticated by Dr. Villalta on 09/01/2022 13:31:37. Problem List/Past Medical History Ongoing Anxiety and depression Arthralgia Bilateral kidney stones BMI 24.0-24.9, adult Change in bruce (more content not included)... Normal [facility] Comment on above: Result Comment: Elec tronically Signed By: Roney VILLATLA MD\.br\Date and Time Signed: 09/01/22 13:31 EST\.br\Electronically Co-Signed By: Jennifer Griffiths\.br\Date and Time Co-Signed: 09/01/22 13:30 EST Cult,Genitalon 08-17-2022 Cult,Genital Specimen Description .VAGINA Culture NORMAL URO-GENITAL JORDYN NEGATIVE FOR NEISSERIA GONORRHOEAE NEGATIVE FOR GROUP B STREPTOCOCCI Report Status FINAL 08/17/2022 Normal [facility] Comment on above: Performed By: #### G EC #### [address] [address] Concrete Puddler: Ruddy Morales MD [facility] [address] [place] [address] [place] [address] Concrete Puddler: Jana Mei MD Cult,Urineon 08-16-2022 Cult,Urine Specimen Description .CLEAN CATCH URINE Culture NO SIGNIFICANT GROWTH Report Status FINAL 08/15/2022 Normal [facility] Comment on above: Performed By: #### U RC #### [address] [address] Concrete Puddler: Ruddy Morales MD [facility] [address] [place] [address] [place] [address] Concrete Puddler: Jana Mei MD Vaginitis DNA Probeon 2021 Analy Negative Normal [facility] Comment on above: Result Comment: for Analy sp. Method of testing is a DNA probe intended for detection and identification of Analy species, Gardnerella vaginalis, and Trichomonas vaginalis nucleic acid in vaginal fluid specimens from patients with symptoms of vaginitis/vaginosis. Performed By: #### V AGP #### [address] [address] Concrete Puddler: Ruddy Morales MD [facility] [address] [place] [address] [place] [address] Concrete Puddler: Jana Mei MD Gardnerella Negative [facility] Comment on above: Result Comment: for Gardnerella vaginalis Performed By: #### V AGP #### [address] [address] Concrete Puddler: Ruddy Morales MD [facility] [address] [place] [address] [place] [address] Concrete Puddler: Jana Mei MD Trichomonas Negative [facility] Comment on above: Result Comment: for Trichomonas Vaginalis Performed By: #### V AGP #### [address] [id number] Concrete Puddler: Ruddy Moralse MD [facility] [address] [place] [address] [place] [address] Concrete Puddler: Jana Mei MD Urinalysis,Microon 2 Epithelial cells LM Ql (Urine sed) 5 TO 10 Normal 0 -25 [facility] Comment on above: Performed By: #### U YASMIN #### [facility] [address] [place] [address] [place] [address] Concrete Puddler: Jana Mei MD Urine RBC's 0 TO 2 Normal 0-2 [facility] Comment on above: Performed By: #### U YASMIN #### [facility] [address] [place] [address] [place] [address] Concrete Puddler: Jana Mei MD Urine WBC's 0 TO 2 Normal 0-5 [facility] Comment on above: Performed By: #### U YASMIN #### [facility] [address] [place] [address] [place] [address] Concrete Puddler: Jana Mei MD Vaginitis DNA Probeon 2021 Source .VAGINAL SWAB Normal [facility] Comment on above: Performed By: #### V AGP #### [facility] [address], [place] [id number] Concrete Puddler: Ruddy Morales MD [facility] [address] [place] [address] [place] [address] Concrete Puddler: Jana Mei MD CULTURE URINEon 08-02-2022 CULTURE URINE Isolate 1 Enterococcus faecalis 25,000 cfu/mL of Isolate 2 Escherichia coli <10,000 cfu/mL of ORGANISM 1 Enterococcus faecalis ANTIBIOTIC M.I.C RX STATUS Benzylpenicillin 2 S F Ampicillin <=2 S F Gentamicin High Level (synergy) SYN-R R F Streptomycin High Level (synergy) SYN-S S F Ciprofloxacin <=0.5 S F Levofloxacin 1 S F Quinupristin/Dalfopristin 4 R F Linezolid 2 S F Vancomycin 1 S F Tetracycline >=16 R F Nitrofurantoin <=16 S F ORGANISM 2 Escherichia coli ANTIBIOTIC M.I.C RX STATUS Ampicillin <=2 S F Ampicillin/Sulbactam <=2 S F Piperacillin/Tazobactam <=4 S F Cefazolin <=4 S F Ceftazidime <=1 S F Ceftriaxone <=1 S F Ertapenem <=0.5 S F Imipenem <=0.25 S F Amikacin <=2 S F Gentamicin <=1 S F Tobramycin <=1 S F Ciprofloxacin <=0.25 S F Levofloxacin <=0.12 S F Nitrofurantoin <=16 S F Trimethoprim/Sulfamethoxazole <=20 S F Normal T [facility] Comment on above: Performed By: #### N A24U, [id number] #### [facility] [address] [place] [address] Dr. Manjinder Forman LIPID PROFILEon 07-30-2022 CHOL-HDL RATIO NORM SEE BELOW [facility] Comment on above: Result Comment: 3.3 - 4.4 LOW RISK 4.4 - 7.1 AVERAGE RISK 7.1 - 11.0 MODERATE RISK >11.0 HIGH RISK Performed By: #### N A24U, [id number] #### [facility] [address] [place] [address] Dr. Manjinder Forman Cholesterol [Mass/Vol] 220 mg/dL Critically high <=200 [facility] Comment on above: Performed By: #### N A24U, [id number] #### [facility] [address] [place] [address] Dr. Manjinder Forman Cholesterol in HDL [Mass/Vol] 89 mg/dL Critically high 4 0-60 [facility] Comment on above: Performed By: #### N A24U, [id number] #### [facility] [address] [place] [address] Dr. Manjinder Forman Cholesterol in LDL [Mass/Vol] 117.6 mg/dL [facility] Comment on above: Performed By: #### N A24U, [id number] #### [facility] [address] [place] [address] Dr. Manjinder Forman Cholesterol.total/Cholestero l in HDL [Mass ratio] 2.5 {ratio} Normal The [facility] Comment on above: Performed By: #### N A24U, [id number] #### [facility] [address] [place] [address] Dr. Manjinder Forman HDL NORMAL > or = 60 mg/dl - LO W CARDIOVASCULAR RISK <40 mg/dl - HIGH CARDIOVASCULAR RISK Normal The [facility] Comment on above: Performed By: #### N A24U, [id number] #### [facility] [address] [address] [address] Manjinder Forman LDL CALC NORMAL SEE BELOW Normal [facility] Comment on above: Result Comment: <100 mg/dl OPTIMAL 100 - 129 mg/dl NEAR OR ABOVE OPTIMAL 130 - 159 mg/dl BORDERLINE HIGH 160 - 189 mg/dl HIGH >190 mg/dl VERY HIGH Performed By: #### N A24U, [id number] #### [facility] [address] [address] [address] Manjinder Forman Triglyceride [Mass/Vol] 67 mg/dL Normal <=150 T [facility] Comment on above: Performed By: #### N A24U, [id number] #### [facility] [address] [place] [address] Dr. Manjinder Forman VLDL CALC 13.4 mg/dL Normal [facility] Comment on above: Performed By: #### N A24U, [id number] #### [facility] [address] [place] [address] Dr. Manjinder Forman UA RANDOM W/MICROSCOPICon BACTERIA NONE SEEN Normal NONE SEEN [facility] Comment on above: Performed By: #### N A24U, [id number] #### [facility] [address] [place] [address] Dr. Manjinder Forman Bilirubin Ql (U) Negative Normal NEGATIVE [facility] Comment on above: Performed By: #### N A24U, [id number] #### [facility] [address] [place] [address] Dr. Manjinder Forman CAST NONE SEEN Normal NONE SEEN [facility] Comment on above: Performed By: #### N A24U, [id number] #### [facility] [address] [place] [address] Dr. Manjinder Forman Clarity (U) CLEAR Normal CLEAR The [facility] Comment on above: Performed By: #### N A24U, [id number] #### [facility] [address] [place] [address] Dr. Manjinder Forman Color (U) LT. YELLOW Normal YELLOW [facility] Comment on above: Performed By: #### N A24U, [id number] #### [facility] [address] [place] [address] Dr. Manjinder Forman Crystals LM Nom (Urine sed) NONE SEEN Normal NONE SEE N [facility] Comment on above: Performed By: #### N A24U, [id number] #### [facility] [address] [place] [address] Dr. Manjinder Forman Epithelial cells LM Ql (Urine sed) RARE Normal N ONE SEEN /RARE The [facility] Comment on above: Performed By: #### N A24U, [id number] #### [facility] [address] [place] [address] Dr. Manjinder Forman Glucose Ql (U) Negative Normal NEGATIVE The [facility] Comment on above: Performed By: #### N A24U, [id number] #### [facility] [address] [place] [address] Dr. Manjinder Forman Hemoglobin Ql (U) Negative Normal NEGATIVE The [facility] Comment on above: Performed By: #### N A24U, [id number] #### [facility] [address] [place] [address] Dr. Manjinder Forman Ketones Ql (U) Negative Normal NEGATIVE [facility] Comment on above: Performed By: #### N A24U, [id number] #### [facility] [address] [place] [address] Dr. Manjinder Forman LEUKOCYTES Negative Normal NEGATIVE [facility] Comment on above: Performed By: #### N A24U, [id number] #### [facility] [address] [place] [address] Dr. Manjinder Forman MUCOUS NONE SEEN Normal NONE SEEN [facility] Comment on above: Performed By: #### N A24U, [id number] #### [facility] [address] [address] [address] Manjinder Forman Nitrite Ql (U) Negative Normal NEGATIVE [facility] Comment on above: Performed By: #### N A24U, [id number] #### [facility] [address] [place] [address] Dr. Manjinder Forman pH (U) 7.0 [pH] Normal 5-9 [facility] Comment on above: Performed By: #### N A24U, [id number] #### [facility] [address] [place] [address] Dr. Manjinder Forman RBC 0-2 Normal 0-2 [facility] Comment on above: Performed By: #### N A24U, [id number] #### [facility] [address] [place] [address] Dr. Manjinder Forman SPEC GRAVITY 1.010 Normal 1.005-<=1.025 [facility] Comment on above: Performed By: #### N A24U, [id number] #### [facility] [address] [place] [address] Dr. Manjinder Forman UA PROTEIN Negative Normal NEGATIVE/ TRACE [facility] Comment on above: Performed By: #### N A24U, [id number] #### [facility] [address] [place] [address] Dr. Manjinder Forman Urobilinogen Qn (U) 0.2 {Gabi'U}/dL Normal 0.2 - 1. 0 [facility] Comment on above: Performed By: #### N A24U, [id number] #### [facility] [address] [place] [address] Dr. Manjinder Forman WBC NONE SEEN Normal NONE SEEN The [facility] Comment on above: Performed By: #### N A24U, [id number] #### [facility] [address] [place] [address] Dr. Manjinder Forman Quick Strepon 07-18-2022 S. pyogenes Org specific cx Ql (Throat) Negative [facility] Other Quick Strep [facility] [employer] Other CBC AUTO DIFFon 07-06-2022 BASO # 0.0 103/ul Normal 0.0-0.1 [facility] Comment on above: Performed By: #### H RON, CMP #### [facility] [address] [place] [address] Dr. Manjinder Forman Basophils/100 WBC (Bld) 0.0 % Critically low 0.2-2.0 The [facility] Comment on above: Performed By: #### H RON, CMP #### [facility] [address] [place] [address] Dr. Manjinder Forman EO # 0.0 103/ul Normal 0.0-0.[address] [facility] Comment on above: Performed By: #### H RON, CMP #### [facility] [address] [place] [address] Dr. Manjinder Forman Eosinophils/100 WBC (Bld) 0.0 % Critically low 0.9-7. 0 The [facility] Comment on above: Performed By: #### H RON, CMP #### [facility] [address] [place] [address] Dr. Manjinder Forman Erythrocyte distribution wid th (RBC) [Ratio] 12.0 % Normal 11.0-15.0 [facility] Comment on above: Performed By: #### H RON, CMP #### [facility] [address] [place] [address] Dr. Manjinder Forman Hematocrit (Bld) [Volume fraction] 38.0 % Normal 3 6.0-48.0 The [facility] Comment on above: Performed By: #### H RON, CMP #### [facility] [address] [address] [address] Manjinder Forman Hemoglobin (Bld) [Mass/Vol] 12.2 g/dL Normal 12.0-16. 0 [facility] Comment on above: Performed By: #### H STROPN, CMP #### [facility] [address] [address] [address] Manjinder Forman IG # 0.01 10e3/ul Normal 0.00-0.03 [facility] Comment on above: Performed By: #### H STROPN, CMP #### [facility] [address] [address] [address] Manjinder Forman IG % 0.2 % Normal 0.0-0.5 [facility] Comment on above: Performed By: #### H STROPN, CMP #### [facility] [address] [place] [address] Dr. Manjinder Forman LYMPH # 0.5 103/ul Critically low 1.2-3.8 [facility] Comment on above: Performed By: #### H STROPN, CMP #### [facility] [address] [address] [address] Manjinder Forman Lymphocytes/100 WBC (Bld) 11.8 % Critically low 20.5-6 0.0 [facility] Comment on above: Performed By: #### H STROPN, CMP #### [facility] [address] [address] [address] Manjinder Forman MANUAL DIFF REQ NO Normal [facility] Comment on above: Performed By: #### H STROPN, CMP #### [facility] [address] [address] [address] Manjinder Forman MCH (RBC) [Entitic mass] 30.4 pg Normal 26.7-34.0 [facility] Comment on above: Performed By: #### H STROPN, CMP #### [facility] [address] [address] [address] Manjinder Forman MCHC (RBC) [Mass/Vol] 32.1 g/dL Normal 29.9-35.2 The [facility] Comment on above: Performed By: #### H STROPN, CMP #### [facility] [address] [address] [address] Manjinder Forman MCV (RBC) [Entitic vol] 94.8 fL Normal 81.0-99.0 [facility] Comment on above: Performed By: #### H STROPN, CMP #### [facility] [address] [place] [address] Dr. Manjinder Forman MONO # 0.2 103/ul Critically low 0.3-0.8 [facility] Comment on above: Performed By: #### H STROPN, CMP #### [facility] [address] [place] [address] Dr. Manjinder Forman Monocytes/100 WBC (Bld) 3.7 % Normal 1.7-12.0 [facility] Comment on above: Performed By: #### H STROPN, CMP #### [facility] [address] [place] [address] Dr. Manjinder Forman NEUT # 3.4 103/ul Normal 1.4-6.5 [facility] Comment on above: Performed By: #### H STROPN, CMP #### [facility] [address] [place] [address] Dr. Manjinder Forman Neutrophils/100 WBC (Bld) 84.3 % Critically high 43.0- 75.0 [facility] Comment on above: Performed By: #### H STROPN, CMP #### [facility] [address] [place] [address] Dr. Manjinder Forman Platelet mean volume (Bld) [ Entitic vol] 11.1 fL Normal 9.5-13.5 [facility] Comment on above: Performed By: #### H STROPN, CMP #### [facility] [address] [place] [address] Dr. Manjinder Forman PLT 143 103/ul Critically low 150-450 [facility] Comment on above: Performed By: #### H STROPN, CMP #### [facility] [address] [place] [address] Dr. Manjinder Forman RBC 4.01 106/ul Critically low 4.20-5.40 [facility] Comment on above: Performed By: #### H RON, CMP #### [facility] [address] [place] [address] Dr. Manjinder Forman WBC 4.1 103/ul Normal 4.0-11.0 [facility] Comment on above: Performed By: #### H RON, CMP #### [facility] [address] [place] [address] Dr. Manjinder Forman PROF 14(COMP METB)on 022 Albumin [Mass/Vol] 3.3 g/dL Critically low 3.4-5.0 [facility] Comment on above: Performed By: #### N A24U, [id number] #### [facility] [address] [place] [address] Dr. Manjinder Forman Albumin/Globulin [Mass ratio] 0.9 {ratio} Normal [facility] Comment on above: Performed By: #### N A24U, [id number] #### [facility] [address] [place] [address] Dr. Manjinder Forman ALP [Catalytic activity/Vol] 75 U/L Normal 46-116 [facility] Comment on above: Performed By: #### N A24U, [id number] #### [facility] [address] [place] [address] Dr. Manjinder Forman ALT [Catalytic activity/Vol] 39 U/L Normal 14-59 [facility] Comment on above: Performed By: #### N A24U, [id number] #### [facility] [address] [place] [address] Dr. Manjinder Forman Anion gap [Moles/Vol] 13.9 mmol/L Normal [facility] Comment on above: Performed By: #### N A24U, [id number] #### [facility] [address] [place] [address] Dr. Manjinder Forman AST [Catalytic activity/Vol] 25 U/L Normal 15-37 [facility] Comment on above: Performed By: #### N A24U, [id number] #### [facility] [address] [place] [address] Dr. Manjinder Forman Bilirubin [Mass/Vol] 0.3 mg/dL Normal 0.2-1.0 [facility] Comment on above: Performed By: #### N A24U, [id number] #### [facility] [address] [place] [address] Dr. Manjinder Forman Calcium [Mass/Vol] 8.3 mg/dL Critically low 8.5-10.1 Th e [facility] Comment on above: Performed By: #### N A24U, [id number] #### [facility] [address] [place] [address] Dr. Manjinder Forman Chloride [Moles/Vol] 105 mmol/L Normal 98-107 [facility] Comment on above: Performed By: #### N A24U, [id number] #### [facility] [address] [place] [address] Dr. Manjinder Forman CO2 [Moles/Vol] 22.3 mmol/L Normal 21.0-32.0 [facility] Comment on above: Performed By: #### N A24U, [id number] #### [facility] [address] [place] [address] Dr. Manjinder Forman Creatinine [Mass/Vol] 0.76 mg/dL Normal 0.55-1.02 [facility] Comment on above: Performed By: #### N A24U, [id number] #### [facility] [address] [place] [address] Dr. Manjinder Forman EGFR-AF [place] >60 Normal >=60 [facility] Comment on above: Performed By: #### N A24U, [id number] #### [facility] [address] [place] [address] Dr. Manjinder Forman EGFR-NON AF [place] >60 Normal >=60 [facility] Comment on above: Performed By: #### N A24U, [id number] #### [facility] [address] [place], [place] [id number] Dr. Manjinder Forman Globulin (S) [Mass/Vol] 3.6 g/dL Normal [facility] Comment on above: Performed By: #### N A24U, [id number] #### [facility] [address] [place] [address] Dr. Manjinder Forman Glucose [Mass/Vol] 125 mg/dL Critically high 74-106 [facility] Comment on above: Performed By: #### N A24U, [id number] #### [facility] [address] [place] [address] Dr. Manjinder Forman Potassium [Moles/Vol] 4.2 mmol/L Normal 3.5-5.1 [facility] Comment on above: Performed By: #### N A24U, [id number] #### [facility] [address] [place] [address] Dr. Manjinder Forman Protein [Mass/Vol] 6.9 g/dL Normal 6.4-8.[address] [facility] Comment on above: Performed By: #### N A24U, [id number] #### [facility] [address] [place] [address] Dr. Manjinder Forman Sodium [Moles/Vol] 137 mmol/L Normal 136-[address] [facility] Comment on above: Performed By: #### N A24U, [id number] #### [facility] [address] [place] [address] Dr. Manjinder Forman Urea nitrogen [Mass/Vol] 12.0 mg/dL Normal 7.0-18.0 [facility] Comment on above: Performed By: #### N A24U, [id number] #### [facility] [address] [place] [address] Dr. Manjinder Forman Urea nitrogen/Creatinine [Mass ratio] 15.8 mg/mg Normal [facility] Comment on above: Performed By: #### N A24U, [id number] #### [facility] [address] [place] [address] Dr. Manjinder Forman CBC AUTO DIFFon 07-05-2022 BASO # 0.0 103/ul Normal 0.0-0.1 [facility] Comment on above: Performed By: #### N A24U, [id number] #### [facility] [address] [place] [address] Dr. Manjinder Forman Basophils/100 WBC (Bld) 0.2 % Normal 0.2-2.0 [facility] Comment on above: Performed By: #### N A24U, [id number] #### [facility] [address] [place] [address] Dr. Manjinder Forman EO # 0.0 103/ul Normal 0.0-0.7 [facility] Comment on above: Performed By: #### N A24U, [id number] #### [facility] [address] [place] [address] Dr. Manjinder Forman Eosinophils/100 WBC (Bld) 0.2 % Critically low 0.9-7. 0 [facility] Comment on above: Performed By: #### N A24U, [id number] #### [facility] [address] [place] [address] Dr. Manjinder Forman Erythrocyte distribution wid th (RBC) [Ratio] 11.9 % Normal 11.0-15.0 [facility] Comment on above: Performed By: #### N A24U, [id number] #### [facility] [address] [place] [address] Dr. Manjinder Forman Hematocrit (Bld) [Volume fraction] 39.1 % Normal 3 6.0-48.0 [facility] Comment on above: Performed By: #### N A24U, [id number] #### [facility] [address] [place] [address] Dr. Manjinder Forman Hemoglobin (Bld) [Mass/Vol] 12.7 g/dL Normal 12.0-16. 0 [facility] Comment on above: Performed By: #### N A24U, [id number] #### [facility] [address] [place] [address] Dr. Manjinder Forman IG # 0.01 10e3/ul Normal 0.00-0.03 [facility] Comment on above: Performed By: #### N A24U, [id number] #### [facility] [address] [place] [address] Dr. Manjinder Forman IG % 0.2 % Normal 0.0-0.5 [facility] Comment on above: Performed By: #### N A24U, [id number] #### [facility] [address] [place] [address] Dr. Manjinder Forman LYMPH # 1.1 103/ul Critically low 1.2-3.8 [facility] Comment on above: Performed By: #### N A24U, [id number] #### [facility] [address] [place] [address] Dr. Manjinder Forman Lymphocytes/100 WBC (Bld) 21.0 % Normal 20.5-60.0 [facility] Comment on above: Performed By: #### N A24U, [id number] #### [facility] [address] [place] [address] Dr. Manjinder Forman MANUAL DIFF REQ NO Normal [facility] Comment on above: Performed By: #### N A24U, [id number] #### [facility] [address] [place] [address] Dr. Manjinder Forman MCH (RBC) [Entitic mass] 30.7 pg Normal 26.7-34.0 [facility] Comment on above: Performed By: #### N A24U, [id number] #### [facility] [address] [place] [address] Dr. Manjinder Forman MCHC (RBC) [Mass/Vol] 32.5 g/dL Normal 29.9-35.2 [facility] Comment on above: Performed By: #### N A24U, [id number] #### [facility] [address] [place] [address] Dr. Manjinder Forman MCV (RBC) [Entitic vol] 94.4 fL Normal 81.0-99.0 [facility] Comment on above: Performed By: #### N A24U, [id number] #### [facility] [address] [place] [address] Dr. Manjinder Forman MONO # 0.8 103/ul Normal 0.3-0.8 [facility] Comment on above: Performed By: #### N A24U, [id number] #### [facility] [address] [place] [address] Dr. Manjinder Forman Monocytes/100 WBC (Bld) 14.9 % Critically high 1.7-12. 0 [facility] Comment on above: Performed By: #### N A24U, [id number] #### [facility] [address] [place] [address] Dr. Manjinder Forman NEUT # 3.3 103/ul Normal 1.4-6.5 [facility] Comment on above: Performed By: #### N A24U, [id number] #### [facility] [address] [place] [address] Dr. Manjinder Forman Neutrophils/100 WBC (Bld) 63.5 % Normal 43.0-75.0 [facility] Comment on above: Performed By: #### N A24U, [id number] #### [facility] [address] [place] [address] Dr. Manjinder Forman Platelet mean volume (Bld) [ Entitic vol] 11.1 fL Normal 9.5-13.5 [facility] Comment on above: Performed By: #### N A24U, [id number] #### [facility] [address] [place] [address] Dr. Manjinder Forman PLT 150 103/ul Normal 150-450 [facility] Comment on above: Performed By: #### N A24U, [id number] #### [facility] [address] [place] [address] Dr. Manjinder Forman RBC 4.14 106/ul Critically low 4.20-5.40 [facility] Comment on above: Performed By: #### N A24U, [id number] #### [facility] [address] [place] [address] Dr. Manjinder Forman WBC 5.2 103/ul Normal 4.0-11.0 [facility] Comment on above: Performed By: #### N A24U, [id number] #### [facility] [address] [place] [address] Dr. Manjinder Forman D-DIMERon 07-05-2022 D-DIMER 0.21 mg/L FEU Normal <=0.59 [facility] Comment on above: Performed By: #### D DIM #### [facility] [address] [place] [address] Dr. Manjinder Forman D-DIMER COMMENTS SEE BELOW Normal [facility] Comment on above: Result Comment: Incr eases in D-Dimer concentration observed with thromboembolic events can be variable due to localization, size, and age of the thrombus. Therefore, a thromboembolic event cannot be diagnosed with certainty on the basis of the reference range. D-Dimers may also be elevated for a variety of disorders including: advanced age, , coronary disease, cancer, liver disease, infection, inflammation, hematoma, DIC, trauma, post-surgery, diabetes, thrombolytic or anticoagulant therapy, stress, and generalized hospitalization. Performed By: #### D DIM #### [facility] [address] [place] [address] Dr. Manjinder Forman LACTATE/LACTIC ACIDon 2021 Lactate [Moles/Vol] 0.6 mmol/L Normal 0.4-1.9 [facility] Comment on above: Performed By: #### H RON, CMP #### [facility] [address] [place] [address] Dr. Manjinder Forman PROF 14(COMP METB)on 022 Albumin [Mass/Vol] 3.4 g/dL Normal 3.4-5.[address] [facility] Comment on above: Performed By: #### H RON, CMP #### [facility] [address] [place] [address] Dr. Manjinder Forman Albumin/Globulin [Mass ratio] 1.0 {ratio} Normal [facility] Comment on above: Performed By: #### H STROPN, CMP #### [facility] [address] [address] [address] Manjinder Forman ALP [Catalytic activity/Vol] 81 U/L Normal 46-116 [facility] Comment on above: Performed By: #### H STROPN, CMP #### [facility] [address] [address] [address] Manjinder Forman ALT [Catalytic activity/Vol] 37 U/L Normal 14-59 [facility] Comment on above: Performed By: #### H STROPN, CMP #### [facility] [address] [address] [address] Manjinder Forman Anion gap [Moles/Vol] 10.9 mmol/L Normal [facility] Comment on above: Performed By: #### H STROPN, CMP #### [facility] [address] [address] [address] Manjinder Forman AST [Catalytic activity/Vol] 25 U/L Normal 15-37 [facility] Comment on above: Performed By: #### H STROPN, CMP #### [facility] [address] [address] [address] Manjinder Forman Bilirubin [Mass/Vol] 0.5 mg/dL Normal 0.2-1.0 [facility] Comment on above: Performed By: #### H STROPN, CMP #### [facility] [address] [address] [address] Manjinder Forman Calcium [Mass/Vol] 8.4 mg/dL Critically low 8.5-10.1 [facility] Comment on above: Performed By: #### H STROPN, CMP #### [facility] [address] [address] [address] Manjinder Forman Chloride [Moles/Vol] 102 mmol/L Normal 98-107 [facility] Comment on above: Performed By: #### H STROPN, CMP #### [facility] [address] [address] [address] Manjinder Forman CO2 [Moles/Vol] 26.1 mmol/L Normal 21.0-32.0 [facility] Comment on above: Performed By: #### H STROPN, CMP #### [facility] [address] [address] [address] Manjinder Forman Creatinine [Mass/Vol] 0.92 mg/dL Normal 0.55-1.02 [facility] Comment on above: Performed By: #### H STROPN, CMP #### [facility] [address] [address] [address] Manjinder Forman EGFR-AF [place] >60 Normal >=60 [facility] Comment on above: Performed By: #### H STROPN, CMP #### [facility] [address] [address] [address] Manjinder Forman EGFR-NON AF [place] >60 Normal >=60 [facility] Comment on above: Performed By: #### H STROPN, CMP #### [facility] [address] [address] [address] Manjinder Forman Globulin (S) [Mass/Vol] 3.5 g/dL Normal [facility] Comment on above: Performed By: #### H STROPN, CMP #### [facility] [address] [address] [address] Manjinder Forman Glucose [Mass/Vol] 104 mg/dL Normal 74-[address] [facility] Comment on above: Performed By: #### H STROPN, CMP #### [facility] [address] [address] [address] Manjinder Forman Potassium [Moles/Vol] 4.0 mmol/L Normal 3.5-5.1 [facility] Comment on above: Performed By: #### H STROPN, CMP #### [facility] [address] [address] [address] Manjinder Forman Protein [Mass/Vol] 6.9 g/dL Normal 6.4-8.[address] [facility] Comment on above: Performed By: #### H STROPN, CMP #### [facility] [address] [address] [address] Manjinder Forman Sodium [Moles/Vol] 135 mmol/L Critically low 136-145 [facility] Comment on above: Performed By: #### H STROPN, CMP #### [facility] [address] [address] [address] Manjinder Forman Urea nitrogen [Mass/Vol] 18.0 mg/dL Normal 7.0-18.0 [facility] Comment on above: Performed By: #### H JUANPN, CMP #### [facility] [address] [address] [address] Manjinder Forman Urea nitrogen/Creatinine [Mass ratio] 19.6 mg/mg Normal [facility] Comment on above: Performed By: #### H JUANPN, CMP #### [facility] [address] [place] [address] Dr. Manjinder Forman TROPONIN, HIGH SENSITIVITYon 07-05-2022 HSTROP <4.0 Normal 4.0-51.3 [facility] Comment on above: Result Comment: CUT- OFF POINTS HAVE BEEN ESTABLISHED BASED ON THE FOURTH UNIVERSAL DEFINITIONS OF MYOCARDIAL INFARCTION. THE UPPER REFERENCE LIMIT (URL) OF TROPONIN, DEFINED THE 99TH PERCENTILE OF cTnI DISTRIBUTION IN A REFERENCE POPULATION, HAS BEEN CONFIRMED THE DECISION THRESHOLD FOR IN DIAGNOSIS. Performed By: #### H RON, CMP #### [facility] [address] [place] [address] Dr. Manjinder Forman XR CHEST 1 Von 07-05-2022 XR CHEST 1 V EXAMINATION: XR CHES T 1 V HISTORY: Cough COMPARISON: 06/25/2020 chest x-rays TECHNIQUE: Portable chest FINDINGS: The lung parenchyma is free of consolidation or infiltrate. No pneumothorax or pleural effusion. The cardiac, mediastinal and hilar contours are normal. The visualized osseous structures exhibit no gross abnormality. IMPRESSION: Normal portable chest Electronically authenticated by: JANA MARTIN Date: 2022-07-05 20:24 Normal [facility] CBC AUTO DIFFon 07-04-2022 BASO # 0.0 103/ul Normal 0.0-0.1 [facility] Comment on above: Performed By: #### D DIM #### [facility] [address] [place] [address] Dr. Manjinder Forman Basophils/100 WBC (Bld) 0.2 % Normal 0.2-2.0 [facility] Comment on above: Performed By: #### D DIM #### [facility] [address] [place] [address] Dr. Manjinder Forman EO # 0.0 103/ul Normal 0.0-0.7 [facility] Comment on above: Performed By: #### D DIM #### [facility] [address] [place] [address] Dr. Manjinder Forman Eosinophils/100 WBC (Bld) 0.2 % Critically low 0.9-7. 0 [facility] Comment on above: Performed By: #### D DIM #### [facility] [address] [place] [address] Dr. Manjinder Forman Erythrocyte distribution wid th (RBC) [Ratio] 12.2 % Normal 11.0-15.0 [facility] Comment on above: Performed By: #### D DIM #### [facility] [address] [place] [address] Dr. Manjinder Forman Hematocrit (Bld) [Volume fraction] 39.9 % Normal 3 6.0-48.0 [facility] Comment on above: Performed By: #### D DIM #### [facility] [address] [place] [address] Dr. Manjinder Forman Hemoglobin (Bld) [Mass/Vol] 12.9 g/dL Normal 12.0-16. 0 [facility] Comment on above: Performed By: #### D DIM #### [facility] [address] [place] [address] Dr. Manjinder Forman IG # 0.02 10e3/ul Normal 0.00-0.03 [facility] Comment on above: Performed By: #### D DIM #### [facility] [address] [place] [address] Dr. Manjinder Forman IG % 0.4 % Normal 0.0-0.[address] [facility] Comment on above: Performed By: #### D DIM #### [facility] [address] [place] [address] Dr. Manjinder Forman LYMPH # 1.1 103/ul Critically low 1.2-3.8 [facility] Comment on above: Performed By: #### D DIM #### [facility] [address] [place] [address] Dr. Manjinder Forman Lymphocytes/100 WBC (Bld) 21.4 % Normal 20.5-60.0 [facility] Comment on above: Performed By: #### D DIM #### [facility] [address] [place] [address] Dr. Manjinder Forman MANUAL DIFF REQ NO Normal [facility] Comment on above: Performed By: #### D DIM #### [facility] [address] [place] [address] Dr. Manjinder Forman MCH (RBC) [Entitic mass] 30.6 pg Normal 26.7-34.0 [facility] Comment on above: Performed By: #### D DIM #### [facility] [address] [place] [address] Dr. Manjinder Forman MCHC (RBC) [Mass/Vol] 32.3 g/dL Normal 29.9-35.2 [facility] Comment on above: Performed By: #### D DIM #### [facility] [address] [place] [address] Dr. Manjinder Forman MCV (RBC) [Entitic vol] 94.8 fL Normal 81.0-99.0 [facility] Comment on above: Performed By: #### D DIM #### [facility] [address] [place] [address] Dr. Manjinder Forman MONO # 1.0 103/ul Critically high 0.3-0.8 [facility] Comment on above: Performed By: #### D DIM #### [facility] [address] [place] [address] Dr. Manjinder Forman Monocytes/100 WBC (Bld) 18.8 % Critically high 1.7-12. 0 [facility] Comment on above: Performed By: #### D DIM #### [facility] [address] [place] [address] Dr. Manjinder Forman NEUT # 3.1 103/ul Normal 1.4-6.5 [facility] Comment on above: Performed By: #### D DIM #### [facility] [address] [place] [address] Dr. Manjinder Forman Neutrophils/100 WBC (Bld) 59.0 % Normal 43.0-75.0 [facility] Comment on above: Performed By: #### D DIM #### [facility] [address] [place] [address] Dr. Manjnider Forman Platelet mean volume (Bld) [ Entitic vol] 10.6 fL Normal 9.5-13.5 [facility] Comment on above: Performed By: #### D DIM #### [facility] [address] [place] [address] Dr. Manjinder Forman PLT 184 103/ul Normal 150-450 [facility] Comment on above: Performed By: #### D DIM #### [facility] [address] [place] [address] Dr. Manjinder Forman RBC 4.21 106/ul Normal 4.20-5.40 [facility] Comment on above: Performed By: #### D DIM #### [facility] [address] [place] [address] Dr. Manjinder Forman WBC 5.3 103/ul Normal 4.0-11.0 [facility] Comment on above: Performed By: #### D DIM #### [facility] [address] [place] [address] ABD/PELVIS WO CONon 07-04 CT ABD/PELVIS WO CON EXAMINATION: CT ABD /PELVIS WO CON HISTORY: CALCULUS OF KIDNEY ; acute posterior right flank pain COMPARISON: XR KUB 07/02/2022 TECHNIQUE: Axial, Coronal, and Sagittal images were obtained without and/or with IV contrast as indicated by examination type. Dose reduction techniques were achieved by using automated exposure control and/or adjustment of mA and/or kV according to patient size and/or use of iterative reconstruction technique. FINDINGS: LUNG BASES: No visible pulmonary or pleural disease. LIVER: Contains multiple small and large round hypodensities favoring cysts, largest is within left hepatic lobe, 4.3 cm. BILIARY: No dilatation or calcification. PANCREAS: No lesion, fluid collection, or abnormal duct dilatation. SPLEEN: No enlargement or focal lesion. ADRENALS: No mass or enlargement. KIDNEYS: A few tiny nonobstructing stones within both kidneys. Unremarkable ureters. BOWEL/MESENTERY: No visible mass, obstruction, or bowel wall thickening. AORTA/VASCULAR: No aneurysm or dissection. RETROPERITONEUM: No mass or adenopathy. LYMPH NODES: No adenopathy. URINARY BLADDER: No visible focal wall thickening, lesion, or calculus. PELVIC ORGANS: Hysterectomy. ABDOMINAL WALL: No mass or hernia. BONES: No bony lesion or fracture. OTHER: Negative. IMPRESSION: 1. Bilateral nonobstructing nephrolithiasis. Electronically authenticated by: CHIDI MORALES Date: 2022-07-04 10:16 Normal [facility] Covid-19 PCR (CVDTBH)on SARS-CoV-2 (COVID-19) RNA KEN+probe Ql (Unsp spec) Detected Critically abnormal NOT DETECTED [facility] Comment on above: Result Comment: This test is not yet approved or cleared by the [place] FDA. When there are no FDA-approved or cleared tests available, and other criteria are met, FDA can make tests available under an emergency access mechanism called an Emergency Use Authorization (EUA). The EUA for this test is supported by the [place] of Health and Human Service's declaration that circumstances exist to justify the emergency use of in vitro diagnostics for the detection and/or diagnosis of the virus that causes COVID-19. This EUA will remain in effect for the duration of the COVID-19 declaration justifying emergency of IVDs, unless it is terminated or revoked by the FDA (after which the test may no longer be used). Performed By: #### H STROPN, CMP #### [facility] [address] [place] [address] Dr. Manjinder Forman ER URINE PROFILEon 2 Bilirubin Ql (U) Negative Normal NEGATIVE [facility] Comment on above: Performed By: #### D DIM #### [facility] [address] [place], [place] [address] Dr. Manjinder Forman Clarity (U) CLEAR Normal CLEAR [facility] Comment on above: Performed By: #### D DIM #### [facility] [address] [address] [address] Manjinder Forman Color (U) LT. YELLOW Normal YELLOW [facility] Comment on above: Performed By: #### D DIM #### [facility] [address] [place] [address] Dr. Manjinder Forman ERUAHD A micrscopic examina tion will be performed if indicated. Normal [facility] Comment on above: Performed By: #### D DIM #### [facility] [address] [place] [address] Dr. Manjinder Forman Glucose Ql (U) Negative Normal NEGATIVE [facility] Comment on above: Performed By: #### D DIM #### [facility] [address] [place] [address] Dr. Manjinder Forman Hemoglobin Ql (U) Negative Normal NEGATIVE [facility] Comment on above: Performed By: #### D DIM #### [facility] [address] [place] [address] Dr. Manjinder Forman Ketones Ql (U) Negative Normal NEGATIVE [facility] Comment on above: Performed By: #### D DIM #### [facility] [address] [place] [address] Dr. Manjinder Forman LEUKOCYTES Negative Normal NEGATIVE [facility] Comment on above: Performed By: #### D DIM #### [facility] [address] [place] [address] Dr. Manjinder Forman Nitrite Ql (U) Negative Normal NEGATIVE [facility] Comment on above: Performed By: #### D DIM #### [facility] Laboratory [address] [place] [address] Dr. Manjinder Forman pH (U) 6.0 [pH] Normal 5-9 [facility] Comment on above: Performed By: #### D DIM #### [facility] Laboratory [address] [place] [address] Dr. Manjinder Forman SPEC GRAVITY <=1.005 Abnormal 1.005-<=1.025 The [facility] Comment on above: Performed By: #### D DIM #### [facility] Laboratory [address] [address] [address] Manjinder Forman UA PROTEIN Negative Normal NEGATIVE/ TRACE [facility] Comment on above: Performed By: #### D DIM #### [facility] Laboratory [address] [address] [address] Manjinder Forman UR MICRO IND NOT INDICATED Normal [facility] Comment on above: Performed By: #### D DIM #### [facility] Laboratory [address] [address] [address] Manjinder Forman Urobilinogen Qn (U) 0.2 {Gabi'U}/dL Normal 0.2 - 1. 0 [facility] Comment on above: Performed By: #### D DIM #### [facility] Laboratory [address] [place] [address] Dr. Manjinder Forman GROUP A STREP CULTUREon S. pyogenes Ag Ql (Unsp spec) Culture Observations: NEGATIVE FOR GROUP A STREPTOCOCCUS. Normal The [facility] Comment on above: Performed By: #### G RASTCX, SSCRN #### [facility] Laboratory [address] [place] [address] Dr. Manjinder Forman INFLUENZA A AND B AGon 07-04 INFLUENZA A AG Negative Normal NEGATIVE SEE COMMENT [facility] Comment on above: Performed By: #### D DIM #### [facility] Laboratory [address] [place] [address] Dr. Manjinder Forman INFLUENZA B AG Negative Normal NEGATIVE SEE COMMENT The [facility] Comment on above: Performed By: #### D DIM #### [facility] Laboratory [address] [place] [address] Dr. Manjinder Forman INTERNAL CONTROLS Within Normal Limits Normal Wi thin Normal Limits The [facility] Comment on above: Performed By: #### D DIM #### [facility] Laboratory [address] [place] [address] Dr. Manjinder Forman PROF 14(COMP METB)on 022 Albumin [Mass/Vol] 3.7 g/dL Normal 3.4-5.0 The [facility] Comment on above: Performed By: #### N A24U, [id number] #### [facility] Laboratory [address] [place] [address] Dr. Manjinder Forman Albumin/Globulin [Mass ratio] 1.1 {ratio} Normal [facility] Comment on above: Performed By: #### N A24U, [id number] #### [facility] Laboratory [address] [place] [address] Dr. Manjinder Forman ALP [Catalytic activity/Vol] 84 U/L Normal 46-116 [facility] Comment on above: Performed By: #### N A24U, [id number] #### [facility] Laboratory [address] [place] [address] Dr. Manjinder Forman ALT [Catalytic activity/Vol] 37 U/L Normal 14-59 [facility] Comment on above: Performed By: #### N A24U, [id number] #### [facility] Laboratory [address] [place] [address] Dr. Manjinder Forman Anion gap [Moles/Vol] 10.5 mmol/L Normal [facility] Comment on above: Performed By: #### N A24U, [id number] #### [facility] Laboratory [address] [place] [address] Dr. Manjinder Forman AST [Catalytic activity/Vol] 25 U/L Normal 15-37 [facility] Comment on above: Performed By: #### N A24U, [id number] #### [facility] Laboratory [address] [place] [address] Dr. Manjinder Forman Bilirubin [Mass/Vol] 0.2 mg/dL Normal 0.2-1.0 [facility] Comment on above: Performed By: #### N A24U, [id number] #### [facility] Laboratory [address] [place] [address] Dr. Manjinder Forman Calcium [Mass/Vol] 8.6 mg/dL Normal 8.5-10.[address] [facility] Comment on above: Performed By: #### N A24U, [id number] #### [facility] Laboratory [address] [address] [address] Manjinder Forman Chloride [Moles/Vol] 103 mmol/L Normal 98-107 [facility] Comment on above: Performed By: #### N A24U, [id number] #### [facility] Laboratory [address] [place] [address] Dr. Manjinder Forman CO2 [Moles/Vol] 26.9 mmol/L Normal 21.0-32.0 [facility] Comment on above: Performed By: #### N A24U, [id number] #### [facility] Laboratory [address] [place] [address] Dr. Manjinder Forman Creatinine [Mass/Vol] 0.94 mg/dL Normal 0.55-1.02 [facility] Comment on above: Performed By: #### N A24U, [id number] #### [facility] Laboratory [address] [place] [address] Dr. Manjinder Forman EGFR-AF [place]IZ[place] >60 Normal >=60 [facility] Comment on above: Performed By: #### N A24U, [id number] #### [facility] Laboratory [address] [place] [address] Dr. Manjinder Forman EGFR-NON AF [place]IZ[place] >60 Normal >=60 [facility] Comment on above: Performed By: #### N A24U, [id number] #### [facility] Laboratory [address] [place] [address] Dr. Manjinder Forman Globulin (S) [Mass/Vol] 3.4 g/dL Normal [facility] Comment on above: Performed By: #### N A24U, [id number] #### [facility] Laboratory [address] [place] [address] Dr. Manjinder Forman Glucose [Mass/Vol] 95 mg/dL Normal 74-[address] [facility] Comment on above: Performed By: #### N A24U, [id number] #### [facility] Laboratory [address] [place] [address] Dr. Manjinder Forman Potassium [Moles/Vol] 4.4 mmol/L Normal 3.5-5.1 [facility] Comment on above: Performed By: #### N A24U, [id number] #### [facility] Laboratory [address] [place] [address] Dr. Manjinder Forman Protein [Mass/Vol] 7.1 g/dL Normal 6.4-8.[address] [facility] Comment on above: Performed By: #### N A24U, [id number] #### [facility] [address] [place] [address] Dr. Manjinder Forman Sodium [Moles/Vol] 136 mmol/L Normal 136-[address] [facility] Comment on above: Performed By: #### N A24U, [id number] #### [facility] Laboratory [address] [place] [address] Dr. Manjinder Forman Urea nitrogen [Mass/Vol] 8.0 mg/dL Normal 7.0-18.0 [facility] Comment on above: Performed By: #### N A24U, [id number] #### [facility] Laboratory [address] [place] [address] Dr. Manjinder Forman Urea nitrogen/Creatinine [Mass ratio] 8.5 mg/mg Normal [facility] Comment on above: Performed By: #### N A24U, [id number] #### [facility] Laboratory [address] [place] [address] Dr. Manjinder Forman STREPT SCREENon 07-04-2022 STREP SCREEN A Negative Normal NEGATIVE [facility] Comment on above: Performed By: #### G RASTCX, SSCRN #### [facility] Laboratory [address] [place] [address] Dr. Manjinder Forman UA RANDOM W/MICROSCOPICon BACTERIA NONE SEEN Normal NONE SEEN [facility] Comment on above: Performed By: #### H STROPN, CMP #### [facility] Laboratory [address] [place] [address] Dr. Manjinder Forman Bilirubin Ql (U) Negative Normal NEGATIVE The [facility] Comment on above: Performed By: #### H JUANPN, CMP #### [facility] Laboratory [address] [place] [address] Dr. Manjinder Forman CAST NONE SEEN Normal NONE SEEN [facility] Comment on above: Performed By: #### H STROPN, CMP #### [facility] Laboratory [address] [address] [address] Manjinder Forman Clarity (U) CLEAR Normal CLEAR The [facility] Comment on above: Performed By: #### H STROPN, CMP #### [facility] Laboratory [address] [address] [address] Manjinder Forman Color (U) LT. YELLOW Normal YELLOW [facility] Comment on above: Performed By: #### H STROPN, CMP #### [facility] Laboratory [address] [address] [address] Manjinder Forman Crystals LM Nom (Urine sed) NONE SEEN Normal NONE SEE N [facility] Comment on above: Performed By: #### H STROPN, CMP #### [facility] Laboratory [address] [place] [address] Dr. Manjinder Forman Epithelial cells LM Ql (Urin e sed) MODERATE Abnormal NONE SEEN /RARE The [facility] Comment on above: Performed By: #### H STROPN, CMP #### [facility] [address] [place] [address] Dr. Manjinder Forman Glucose Ql (U) Negative Normal NEGATIVE The [facility] Comment on above: Performed By: #### H STROPN, CMP #### [facility] Laboratory [address] [place] [address] Dr. Manjinder Forman Hemoglobin Ql (U) Negative Normal NEGATIVE The [facility] Comment on above: Performed By: #### H STROPN, CMP #### [facility] [address] [place] [address] Dr. Manjinder Forman Ketones Ql (U) Negative Normal NEGATIVE [facility] Comment on above: Performed By: #### H STROPN, CMP #### [facility] [address] [place] [address] Dr. Manjinder Forman LEUKOCYTES Negative Normal NEGATIVE [facility] Comment on above: Performed By: #### H STROPN, CMP #### [facility] [address] [place] [address] Dr. Manjinder Forman MUCOUS NONE SEEN Normal NONE SEEN [facility] Comment on above: Performed By: #### H STROPN, CMP #### [facility] [address] [address] [address] Manjinder Forman Nitrite Ql (U) Negative Normal NEGATIVE [facility] Comment on above: Performed By: #### H STROPN, CMP #### [facility] [address] [address] [address] Manjinder Forman pH (U) 6.0 [pH] Normal 5-9 [facility] Comment on above: Performed By: #### H STROPN, CMP #### [facility] Laboratory [address] [place] [address] Dr. Manjinder Forman RBC NONE SEEN Abnormal 0-2 [facility] Comment on above: Performed By: #### H STROPN, CMP #### [facility] Laboratory [address] [place] [address] Dr. Manjinder Forman SPEC GRAVITY 1.010 Normal 1.005-<=1.025 [facility] Comment on above: Performed By: #### H STROPN, CMP #### [facility] Laboratory [address] [place] [address] Dr. Manjinder Forman UA PROTEIN Negative Normal NEGATIVE/ TRACE [facility] Comment on above: Performed By: #### H STROPN, CMP #### [facility] Laboratory [address] [place] [address] Dr. Manjinder Forman Urobilinogen Qn (U) 0.2 {Gabi'U}/dL Normal 0.2 - 1. 0 The [facility] Comment on above: Performed By: #### H STROPN, CMP #### [facility] Laboratory [address] [place] [address] Dr. Manjinder Forman WBC NONE SEEN Normal NONE SEEN [facility] Comment on above: Performed By: #### H STROPN, CMP #### [facility] Laboratory [address] [place] [address] Dr. Manjinder Forman XR KUB 1 VIEWon 10-05-2022 XR KUB 1 VIEW EXAMINATION: XR KUB 1 VIEW HISTORY: Abdominal pain , right flank pain COMPARISON: No relevant comparison available. FINDINGS: KIDNEY/URETER - RIGHT: A few punctate calcifications projecting over kidney. KIDNEY/URETER - LEFT: A few punctate calcifications projecting over kidney. PELVIS: Several small calcifications within right pelvis, nonspecific but favoring phleboliths. BOWEL: No abnormal dilation or deviation. BONES: No acute abnormality. OTHER: Negative. No abnormal gaseous collections. IMPRESSION: 1. Suspect bilateral nephrolithiasis with several tiny calcifications projecting over the kidneys. 2. Stable small right pelvic calcifications favor phleboliths. A small distal right ureteral stone cannot be excluded. Electronically authenticated by: CHIDI MORALES Date: 2022-07-02 13:43 Normal [facility] Cult,Genitalon 06-22-2022 Cult,Genital Specimen Description .VAGINA Culture NORMAL URO-GENITAL JORDYN STREPTOCOCCI, BETA HEMOLYTIC GROUP B ISOLATED NEGATIVE FOR NEISSERIA GONORRHOEAE Report Status FINAL 06/22/2022 Abnormal [facility] Comment on above: Performed By: #### G #### [facility] [address] [place] [address] Concrete Puddler: Ruddy Morales MD [facility] [address] [place] [address] Concrete Puddler: Jana Mei MD CPKon 04-17-2021 CK [Catalytic activity/Vol] 59 U/L Normal 30-223 [facility] Comment on above: Performed By: #### 2 [id number], [id number], [id number] #### [facility] [address] [facility]. [address] [place]IC [place]IN[place]PT[place] [id number] 04-17-2021 CYCLIC CIT PEP 4 Units Normal 0-19 [facility] Comment on above: Result Comment: INTE RPRETIVE INFORMATION: Cyclic Citrullinated Peptide Antibody, IgG 19 Units or less ................... Negative 20-39 Units ........................ Weak Positive 40-59 Units ........................ Moderate Positive 60 Units or greater ................ Strong Positive Anti-cyclic citrullinated peptide (anti-CCP), IgG antibodies are present in about 69-83 percent of patients with rheumatoid arthritis (RA) and have specificities of 93-95 percent. These autoantibodies may be present in the preclinical phase of disease, are associated with future RA development, and may predict radiographic joint destruction. Patients with weak positive results should be monitored and testing repeated. Performed By: CAPNIA [address] [place] [id number] Tonal Regulator: Emily Tellez MD HAND LEFT 3 [facility] 04-17-2021 HAND LEFT 3 [facility] Department of Radiology [address] [place] [id number] Patient Name: ANDREA LONG : 1980 Sex: F Age: Race: White Pt. Location: [facility] Patient Status: O Ordered Date: 04/17/2021 11:05:00 AM Completed Date: 04/17/2021 11:06 AM Requesting Provider: LUBNA BONILLA Attending Provider: BHAVIK ARRIAGA Report Copy To: Signs & Symptoms: M25.50 Pain in unspecified joint I10 History: [place]onna Comments: Evaluate Exam: HAND LEFT 3 S HAND LEFT 3 S CLINICAL INFORMATION: pt states alfie hand pain, arthritis COMPARISON: None. IMPRESSION: 1. No fracture or other acute osseous abnormalities identified. Scattered degenerative changes. No erosions. Electronically signed: Lukas Porter. Transcribed by: [email or web address], User Resident: Electronically Signed by: LUKAS PORTER @ 04/17/2021 04:14 PM Normal [facility] Comment on above: Order Comment: Evalu ate HAND RIGHT 3 VWSon 1 HAND RIGHT 3 S [facility] Department of Radiology [address] [place] [id number] Patient Name: ANDREA LONG : 1980 Sex: F Age: Race: White Pt. Location: [facility] Patient Status: O Ordered Date: 04/17/2021 11:05:00 AM Completed Date: 04/17/2021 11:06 AM Requesting Provider: LUBNA BONILLA Attending Provider: BHAVIK ARRIAGA Report Copy To: Signs & Symptoms: M25.50 Pain in unspecified joint I10 History: [place] Comments: Evaluate Exam: HAND RIGHT 3 S HAND RIGHT 3 S CLINICAL INFORMATION: pt states alfie hand pain, arthritis COMPARISON: None. IMPRESSION: 1. No fracture. No erosions. Scattered degenerative changes. Electronically signed: Lukas Porter. Transcribed by: [email or web address], User Resident: Electronically Signed by: LUKAS PORTER @ 04/17/2021 04:15 PM Normal [facility] Comment on above: Order Comment: Evalu ate SEDIMENTATION RATEon 07-21-2 021 SED RATE 10 mm/hr Normal 0-20 [facility] Comment on above: Performed By: #### 5 [id number] #### [facility] [address] [facility]. [address] SJOGRENS ANTIBODIESon 2020 SS-A Negative Normal NEG,NEGATIVE,Neg The [facility] Comment on above: Performed By: #### 9 9850 #### [facility]. [address] SS-B Negative Normal NEG,NEGATIVE,Neg The [facility] Comment on above: Performed By: #### 9 9850 #### [facility] [address] TSH3on 04-17-2021 TSH 3RD GENERATION 1.35 uIU/mL Normal 0.34-5.60 [facility] Comment on above: Performed By: #### 2 5508, 03968, 95826 #### [facility] [address] VITAMIN D 25-HYDROXYon 04-17 VITAMIN D 25-OH 66.4 ng/mL Normal 30.0-80.0 The [facility] Comment on above: Result Comment: >80. 0 Toxicity possible Performed By: #### 2 5508, 06499, 05464 #### [facility] [address] CBC With Auto Differentialon 12-18-2020 Basophils (Bld) [#/Vol] 0.05 10*3/uL [employer] Phone: Basophils/100 WBC (Bld) 1 % 0 - 2 % M [employer] Phone: Differential Type NOT REPORTED [employer] Phone: Eosinophils (Bld) [#/Vol] 0.21 10*3/uL [employer] Phone: Eosinophils/100 WBC (Bld) 3 % 1 - 4 % [employer] Phone: Erythrocyte distribution width (RBC) [Ratio] 11.7 % Low 11.8 - 14.4 % [employer] Phone: Hematocrit (Bld) [Volume fraction] 43.3 % 36.3 - 47.1 % [employer] Phone: Hemoglobin (Bld) [Mass/Vol] 13.8 g/dL 11.9 - 15.1 g/dL [employer] Phone: Immature granulocytes (Bld) [#/Vol] 0 % 0 [facility] Phone: Immature granulocytes (Bld) [#/Vol] 10*3/uL [employer] Phone: Interpretation and review of laboratory results Abnormal [email or web address] Phone: Lymphocytes (Bld) [#/Vol] 2.04 10*3/uL [facility] Phone: Lymphocytes/100 WBC (Bld) 28 % 24 - 43 % [facility] Phone: MCH (RBC) [Entitic mass] 30.7 pg 25.2 - 33.5 pg [employer] Phone: MCHC (RBC) [Mass/Vol] 31.9 g/dL 28.4 - 34.8 g/dL [employer] Phone: MCV (RBC) [Entitic vol] 96.2 fL 82.6 - 102.9 fL [employer] Phone: Monocytes (Bld) [#/Vol] 0.83 10*3/uL [employer] Phone: Monocytes/100 WBC (Bld) 11 % 3 - 12 % [facility] Phone: Platelet mean volume (Bld) [Entitic vol] 10.5 fL 8.1 - 13.5 fL [employer] Work Phone: Platelets (Bld) [#/Vol] 335 10*3/uL [facility] [employer] Work Phone: Platelets (Bld) [#/Vol] NOT REPORTED [facility] [email or web address] Phone: RBC (Bld) [#/Vol] 4.50 10*6/uL 3.95 - 5.1 1 m/uL [facility] [employer] Work Phone: RBC morphology finding Nom (Bld) NOT REPORTED [facility] [employer] Work Phone: Segmented neutrophils/100 WBC (Bld) 57 % 36 - 65 % [facility] [employer] Work Phone: Segs Absolute 4.10 [facility] Work Phone: WBC (Bld) [#/Vol] 7.3 10*3/uL [facility] [employer] Work Phone: WBC (Bld) [#/Vol] 0.0 10*3/uL 0.0 per 100 WBC M [facility] [employer] Work Phone: WBC Morphology NOT REPORTED [facility] Work Phone: COVID-19on 11-06-2020 SARS-CoV-2 [facility] [employer] Work Phone: SARS-CoV-2 Not Detected Not Detected [facility] Work Phone: Comment on above: The specimen is NEGATIVE for SARS-CoV-2, the novel coronavirus associated with COVID-19. A negative result does not rule out COVID-19. Malachi SARS-CoV-2 for use on the [employer] is a real-time RT-PCR test intended for the qualitative detection of nucleic acids from SARS-CoV-2 in clinician-collected nasal, nasopharyngeal, and oropharyngeal swab specimens from individuals who meet COVID-19 clinical and/or epidemiological criteria. Malachi SARS-CoV-2 is for use only under Emergency Use Authorization (EUA) in laboratories certified under Clinical Laboratory Improvement Amendments of 1988 (CLIA), 42 U.S.C. 263a, that meet requirements to perform high or moderate complexity tests. An individual without symptoms of COVID-19 and who is not shedding SARS-CoV-2 virus would expect to have a negative (not detected) result in this assay. Fact sheet for Healthcare Providers: https://www.fda.gov/media/803848/download Fact sheet for Patients: https://www.fda.gov/media/547993/download METHODOLOGY: RT-PCR SARS-CoV-2, Rapid [employer] Work Phone: Source .NASOPHARYNGEAL SWAB [employer] Work Phone: US BREAST COMPLETE RIGHTon 0 10-05-2020 Benign-appearing cys t or small lymph node corresponding to the mammographic finding in the 9 o'clock position. No suspicious sonographic abnormality identified in the lateral right breast. Return to yearly screening schedule is recommended. BI-RADS 2 BIRADS: BIRADS - CATEGORY 2 Benign Findings. Normal interval follow-up is recommended in 12 months. OVERALL ASSESSMENT - BENIGN A letter of notification will be sent to the patient regarding the results. The [employer] recommends annual mammograms for women 40 years and older. [employer] AL EXAMINATION: TARGETE D ULTRASOUND OF THE RIGHT BREAST 10/05/2020 COMPARISON: Baseline mammography 08/31/2020 HISTORY: ORDERING SYSTEM PROVIDED HISTORY: Abnormal mammogram TECHNOLOGIST PROVIDED HISTORY: abnormal mammogram FINDINGS: Targeted ultrasound was performed in the lateral aspect of the right breast, which identifies an ovoid, circumscribed wider than tall small mass likely representing a cyst or small lymph node measuring 0.5 x 0.2 x 0.6 cm in the 9 o'clock location, 4.5 cm from the nipple. This corresponds to the approximate size and location of the mammographic finding. There is also an isoechoic area measured at the 7 o'clock location, likely a breast lobule. No suspicious mass identified. [employer] AL Karan, Yessica Incoming R adiant Results From [employer] - 10/05/2020 2:26 PM EST EXAMINATION: TARGETED ULTRASOUND OF THE RIGHT BREAST 10/05/2020 COMPARISON: Baseline mammography 08/31/2020 HISTORY: ORDERING SYSTEM PROVIDED HISTORY: Abnormal mammogram TECHNOLOGIST PROVIDED HISTORY: abnormal mammogram FINDINGS: Targeted ultrasound was performed in the lateral aspect of the right breast, which identifies an ovoid, circumscribed wider than tall small mass likely representing a cyst or small lymph node measuring 0.5 x 0.2 x 0.6 cm in the 9 o'clock location, 4.5 cm from the nipple. This corresponds to the approximate size and location of the mammographic finding. There is also an isoechoic area measured at the 7 o'clock location, likely a breast lobule. No suspicious mass identified. IMPRESSION: Benign-appearing cyst or small lymph node corresponding to the mammographic finding in the 9 o'clock position. No suspicious sonographic abnormality identified in the lateral right breast. Return to yearly screening schedule is recommended. BI-RADS 2 BIRADS: BIRADS - CATEGORY 2 Benign Findings. Normal interval follow-up is recommended in 12 months. OVERALL ASSESSMENT - BENIGN A letter of notification will be sent to the patient regarding the results. The [employer] recommends annual mammograms for women 40 years and older. [place], [place] Estradiolon 08-31-2020 Estradiol <5 Low 27 - 314 pg/mL [place], [place] Comment on above: FEMALES: Normally menstruating Luteal phase 33-298 Follicular phase 27-156 Midcycle phase 48-314 Postmenopausal (untreated) 5-50 Fulvestrant treatment will show an increased estradiol concentration with this methodology. Alternate methodologies are available upon request. Follicle Stimulating Hormone on 08-31-2020 FSH 1 U/L Low 1.7 - 21.5 U/L [place], [place] Comment on above: Reference Range: Male: 1.5-12.4 Ovulating Female: Follicular Phase 3.5-12.5 Ovulation Phase 4.7-21.5 Luteal Phase 1.7-7.7 Postmenopausal Female: 25.8-134.8 Interpretation and review of laboratory results Abnormal [place] Luteinizing Hormoneon 2019 LH <0.1 Low 1 - 95.6 U/L [place], [place] Comment on above: Reference Range: Male: 1.7-8.6 Ovulating Female: Follicular Phase 2.4-12.6 Ovulation Phase 14.0-95.6 Luteal Phase 1.0-11.4 Postmenopausal Female: 7.7-58.5 Otheron 08-31-2020 Interpretation and review of laboratory results Abnormal [place] TSH With Reflex Ft4on 2019 TSH Qn 1.26 m[IU]/L [place], [place] US NON OB TRANSVAGINALon Unremarkable sonogra phic appearance of the uterus and endometrial stripe. Neither ovary is visualized or evaluated. [place] EXAMINATION: PELVIC ULTRASOUND 07/12/2020 TECHNIQUE: Transvaginal pelvic ultrasound was performed. COMPARISON: None HISTORY: ORDERING SYSTEM PROVIDED HISTORY: History of menorrhagia FINDINGS: Neither ovary is visualized or evaluated. Uterus measures 7.3 x 3.0 x 3.7 cm. Endometrial stripe measures 5.9 mm. No free fluid is appreciated. [place], [place] Karan, Mhpn Incoming R adiant Results From [employer] - 07/12/2020 6:18 PM EDT EXAMINATION: PELVIC ULTRASOUND 07/12/2020 TECHNIQUE: Transvaginal pelvic ultrasound was performed. COMPARISON: None HISTORY: ORDERING SYSTEM PROVIDED HISTORY: History of menorrhagia FINDINGS: Neither ovary is visualized or evaluated. Uterus measures 7.3 x 3.0 x 3.7 cm. Endometrial stripe measures 5.9 mm. No free fluid is appreciated. IMPRESSION: Unremarkable sonographic appearance of the uterus and endometrial stripe. Neither ovary is visualized or evaluated. [place] Vital Signs Date Time Vital Sign Value Performing Clinician Facility 05-01-2023 13:56-0400 Body height 165.1 cm Noemi Franklin [employer] Work Phone: [facility] [employer] 05-01-2023 13:56-0400 Body mass index (BMI) [Ratio] 28.29 kg/m2 [facility] [employer] Work Phone: [facility] [employer] 05-01-2023 13:56-0400 Body temperature 97.3 [degF] Noemi Franklin [employer] Work Phone: [facility] [email or web address] 05-01-2023 13:56-0400 Body weight 77.11 kg Noemi Franklin [employer] [facility] 05-01-2023 13:56-0400 Diastolic blood pressure 84 mm[Hg] Noemi Franklin DO Work Phone: [email or web address] 05-01-2023 13:56-0400 Heart rate 75 /min Noemi Franklin DO Work Phone: [facility] [employer] 05-01-2023 13:56-0400 Respiratory rate 16 /min Noemi Franklin DO Work Phone: [facility] [employer] 05-01-2023 13:56-0400 SaO2% (BldA) [Mass fraction] 99 % Noemi Franklin DO Work Phone: [email or web address] 05-01-2023 13:56-0400 Systolic blood pressure 150 mm[Hg] Noemi Franklin DO Work Phone: [facility] [employer] 04-23-2023 12:39-0400 Diastolic blood pressure 90 mm[Hg] Caitlin Finch Work Phone: [facility] 250 DO Work Phone: 04-23-2023 12:39-0400 Diastolic blood pressure 84 mm[Hg] Caitlinjulio Finch Work Phone: [facility] 250 DO Work Phone: 04-23-2023 12:39-0400 Systolic blood pressure 124 mm[Hg] Caitlinjulio Kapadiaz Work Phone: [facility] 250 DO Work Phone: 04-23-2023 12:39-0400 Systolic blood pressure 118 mm[Hg] Caitlinjulio Prabhakarhholz Work Phone: [facility] 250 DO Work Phone: 04-23-2023 12:05-0400 Body height 165.1 cm Caitlinjulio Prabhakarhholz Work Phone: [facility] 250 DO Work Phone: 04-23-2023 12:05-0400 Body mass index (BMI) [Ratio] 28.62 kg/m2 Caitlin Singletary Aichholz Work Phone: [facility] 250 DO Work Phone: 04-23-2023 12:05-0400 Body surface area Derived from formula 1.86 m2 Caitlin Singletary Aichholz Work Phone: [facility] 250 DO Work Phone: 04-23-2023 12:05-0400 Body weight 78.02 kg Caitlin Singletary Aichholz Work Phone: [facility] 250 DO Work Phone: 04-23-2023 12:05-0400 Heart rate 86 /min Caitlin Singletary Aichholz Work Phone: [facility] 250 DO Work Phone: 04-23-2023 12:04-0400 Diastolic blood pressure 102 mm[Hg] Caitlin Singletary Aichholz Work Phone: [facility] 250 DO Work Phone: 04-23-2023 12:04-0400 Diastolic blood pressure 104 mm[Hg] Caitlin Singletary Aichholz Work Phone: [facility] 250 DO Work Phone: 04-23-2023 12:04-0400 Systolic blood pressure 154 mm[Hg] Caitlin Singletary Aichholz Work Phone: [facility] 250 DO Work Phone: 04-23-2023 12:04-0400 Systolic blood pressure 152 mm[Hg] Caitlin Jo Aichholz Work Phone: [facility] 250 DO Work Phone: 07-27-2023 12:04-0400 Systolic blood pressure 148 mm[Hg] Caitlin Finch Work Phone: [facility] 250 DO Work Phone: 12-22-2022 13:35-0400 Blood Pressure Location Roney VILLALTA [facility] 12-22-2022 13:35-0400 Diastolic blood pressure 82 mm[Hg] Roney VILLALTA [facility] 12-22-2022 13:35-0400 Heart rate 72 /min Roney VILLALTA [facility] 12-22-2022 13:35-0400 Respiratory rate 16 /min Roney VILLALTA [facility] 12-22-2022 13:35-0400 Systolic blood pressure 140 mm[Hg] Roney VILLALTA [facility] 09-01-2022 12:38-0500 Blood Pressure Location Roney VILLALTA [facility] 09-01-2022 12:38-0500 Diastolic blood pressure 88 mm[Hg] Roney VILLALTA [facility] 09-01-2022 12:38-0500 Heart rate 75 /min Roney VILLALTA [facility] 09-01-2022 12:38-0500 Respiratory rate 16 /min Roney VILLALTA [facility] 09-01-2022 12:38-0500 Systolic blood pressure 137 mm[Hg] Roney VILLALTA [facility] 07-18-2022 13:50-0400 Body height 165.1 cm Jaelyn Bright Other [employer] Other 07-18-2022 13:50-0400 Body mass index (BMI) [Ratio] 27.65 kg/m2 Jaelyn Bright Other [employer] Other 07-18-2022 13:50-0400 Body temperature 97.8 [degF] Jaelyn Bright Other [employer] Other 07-18-2022 13:50-0400 Body weight 75.39 kg Jaelyn Raomond Other [employer] Other 07-18-2022 13:50-0400 Diastolic blood pressure 65 mm[Hg] Jaelyn Kaila Other [employer] Other 07-18-2022 13:50-0400 Respiratory rate 18 /min Jaelyn Raomond Other [employer] Other 07-18-2022 13:50-0400 SaO2% (BldA) [Mass fraction] 97 % Jaelyn Bright Other [employer] Other 07-18-2022 13:50-0400 Systolic blood pressure 106 mm[Hg] Jaelyn Kaila Other [employer] Other Encounters Encounter Date Encounter Type Care Provider Facility Start: 07-11-2024 ambulatory Roney Almaraz ty:[facility] Start: 09-10-2023 End: [facility] Start: 09-04-2023 End: 09-05-2023 ambulatory CAITLIN [facility] Start: 08-19-2023 End: 08-20-2023 ambulatory CAITLIN [facility] Start: 08-10-2023 End: 08-11-2023 ambulatory [facility] Start: 08-03-2023 End: 08-04-2023 ambulatory CAITLIN [facility] Start: 07-30-2023 End: 07-30-2023 ambulatory [facility] Start: 07-27-2023 End: 07-28-2023 ambulatory [facility] Start: 07-23-2023 End: 07-24-2023 ambulatory [facility] Start: 07-16-2023 End: 07-17-2023 ambulatory [facility] Start: 07-09-2023 End: 07-10-2023 ambulatory CAITLIN [facility] Start: 07-06-2023 End: 07-07-2023 ambulatory Roneykalpesh VILLALTA Facility:[facility] Start: 07-01-2023 End: 07-02-2023 ambulatory CAITLIN [facility] Start: 06-24-2023 End: 06-25-2023 ambulatory ACITLIN [facility] Start: 06-19-2023 ambulatory [facility] Facility:[id number] Start: 06-17-2023 End: 06-18-2023 ambulatory [facility] Start: 06-10-2023 End: 06-11-2023 ambulatory [facility] Start: 06-09-2023 ECHO, Provider: EDMUND BAEZI ULTRASOUND 01,[id number], Status: Pen, Time: 9:45 AM Caitlin Finch Work Phone: [facility] 250 DO Work Phone: Start: 06-09-2023 [address] Caitlin Sinlgetary Stef F acility:[id number] Start: 06-08-2023 Patient encounter procedure Caitlin Singletary Stef Work Phone: [facility] 250 DO Work Phone: Start: 06-08-2023 ambulatory Shaneka Diaz Facility:[id number] Start: 06-03-2023 End: 06-04-2023 ambulatory [facility] Start: 05-27-2023 End: 05-28-2023 ambulatory CAITLIN [facility] Start: 05-21-2023 End: 05-22-2023 [facility] Start: 05-15-2023 Chart Update Caitlin Singletary Mattie meeks Work Phone: [place] [id number] DO Work Phone: Start: 05-15-2023 End: 05-16-2023 ambulatory CAITLIN [facility] Start: 05-13-2023 [facility] Faci lity:[id number] Start: 05-13-2023 End: 05-13-2023 [facility] Facility:[facility] Start: 05-08-2023 End: 05-09-2023 ambulatory [facility] Start: 05-01-2023 End: 05-01-2023 Emergency department patient visit CAITLIN [facility] Start: 05-01-2023 End: 05-01-2023 Emergency department patient visit Cindyconsuelo Jimmie Franklin DO Work Phone: [facility] ED Comment on above: Poison loli (Primary Dx) Start: 05-01-2023 End: 05-01-2023 ambulatory [facility] Start: 04-23-2023 Patient encounter procedure Caitlin Gemini Finch Work Phone: [facility] 250 DO Work Phone: Start: 04-23-2023 ambulatory Shaneka Diaz Facility:[id number] Start: 04-20-2023 End: 04-21-2023 ambulatory [facility] Start: 02-18-2023 ambulatory Shaneka Diaz Facility:[facility] Start: 02-18-2023 End: 02-19-2023 ambulatory [facility] Start: 02-13-2023 End: 02-14-2023 ambulatory [facility] Start: 02-09-2023 End: 02-09-2023 ambulatory DARLENE FINCH Facility:[facility]1 Start: 02-04-2023 End: 02-05-2023 ambulatory [facility] Start: 01-30-2023 End: 01-31-2023 ambulatory [facility] Start: 01-23-2023 End: 01-24-2023 ambulatory [facility] Start: 01-16-2023 End: 01-17-2023 ambulatory [facility] Start: 01-09-2023 End: 01-10-2023 ambulatory [facility] Start: 01-01-2023 End: 01-02-2023 ambulatory CAITLIN FINCH [facility] Start: 01-01-2023 End: 01-01-2023 ambulatory CAITLIN FINCH [facility] Start: 01-01-2023 End: 01-01-2023 Subsequent hospital visit by physician Caitlin Finch Work Phone: [email or web address] Comment on above: Dysuria; Pelvic pain Start: 01-01-2023 End: 01-01-2023 Subsequent hospital visit by physician Caitlin Finch Work Phone: [email or web address] Comment on above: Hot flashes Start: 12-30-2022 End: 12-31-2022 ambulatory [facility] Start: 12-24-2022 End: 12-25-2022 ambulatory [facility] Start: 12-22-2022 End: 12-23-2022 ambulatory Roney VILLALTA Facility:[facility] [place] Start: 12-22-2022 End: 12-22-2022 Patient encounter procedure Roney VILLALTA [facility] Start: 12-17-2022 End: 12-18-2022 ambulatory KEYLA MENDEZ [facility] Start: 12-12-2022 End: 12-13-2022 amb[facility] Start: 12-10-2022 End: 12-11-2022 ambulatory [facility] Start: 11-13-2022 End: 11-14-2022 ambulatory CAITLIN [facility] Start: 09-03-2022 End: 09-04-[address] RONEY VILLALTA . Facility:[facility]1 Start: 09-01-2022 End: 09-02-2022 ambulatory CAITLIN FINCH Facility:[facility] [place] Start: 09-01-2022 End: 09-01-2022 Patient encounter procedure Roney VILLALTA [facility] Start: 08-14-2022 End: 08-15-2022 [facility] Start: 07-31-2022 ambulatory Roney VILLALTA Facility :[facility] [place] Start: 07-30-2022 End: 07-31-2022 ambulatory DARLENE FINCH Facility:[facility] Start: 07-18-2022 End: 07-18-2022 ambulatory Jaelyn Bright Other [employer] Other Start: 07-18-2022 Office outpatient vi sit 15 minutes Jaelyn Bright [facility] Start: 07-06-2022 End: 07-06-[address] ALANNAH SPEARS . Facility:[facility]1 Start: 07-04-2022 ambulatory DARLENE FINCH Facil ity:H1 Start: 07-04-2022 End: 07-04-[address] CHIDI MORALES Facility:[facility]1 Start: 07-02-2022 End: 07-03-2022 ambulatory DARLENE CAITLIN FINCH Facility:[facility]1 Start: 06-18-2022 End: 06-19-2022 ambulatory CAITLIN FINCH [facility] Start: 06-18-2022 End: 06-18-2022 Subsequent hospital visit by physician Caitlin Finch Work Phone: [facility] Laboratory Comment on above: Postcoital bleeding Start: 01-01-2022 End: 01-01-2022 Patient encounter procedure DO Fernandoanselmo Ragsdale Work Phone: [facility] [address] Start: 12-18-2020 End: 12-18-2020 Subsequent hospital visit by physician Caitlin Finch [facility] Laboratory Comment on above: Fatigue, unspecified type Start: 11-05-2020 End: 11-09-2020 Subsequent hospital visit by physician [facility] Covid19 Pat Screening Schedule [facility] PRE ADMIT Comment on above: Preoperative testing Start: 10-05-2020 End: 10-07-2020 Subsequent hospital visit by physician [facility] Ultrasound Room [facility] Ultrasound Comment on above: Abnormal mammogram Start: 08-31-2020 End: 09-02-2020 Subsequent hospital visit by physician [facility] Mammography Room At [facility] Laboratory Comment on above: Hot flashes Screening mammogram, encounter for Start: 07-12-2020 End: 07-14-2020 Subsequent hospital visit by physician [facility] Ultrasound Room [facility] Ultrasound Comment on above: History of menorrhag ia Start: 07-05-2020 End: 07-05-2020 Subsequent hospital visit by physician Becca TRAYLOR Laboratory Comment on above: Screening for cervic al cancer; History of menorrhagia Procedures Date Procedure Procedure Detail Performing Clinician Start: 06-09-2023 Echocardiography Caitlin Finch Work Phone: Start: 01-01-2023 Iadna analy species direct probe tq Frank Diaz [employer]ARM E[employer]MENT [employer]INE[employer] - CNM Work Phone: Start: 01-01-2023 Gonadotropin follicle stimulating hormone Frank Diaz [employer]ARM EQUIPMENT ENGINEER - CNM Work Phone: Start: 01-01-2022 MRI of head DO Fernando Ragsdale Work Phone: Start: 06-26-2021 Colonoscopy Roney VILLALTA Start: 06-26-2021 Esophagogastroduodenoscopy Roney MCGARRY S Start: 12-18-2020 Blood count complete auto&auto difrntl wbc Keturah F Lance Plasencia Work Phone: Start: 11-12-2020 Partial hysterectomy Roney VILLALTA Start: 11-05-2020 COVID-19 JonnathanJigna Waggoner Work Phone: Start: 10-05-2020 Us breast uni real time with image complete Frank Leija Diaz Work Phone: Start: 08-31-2020 Assay of estradiol Frank Diaz Work Phone: Start: 08-31-2020 Gonadotropin follicle stimulating hormone Frank Diaz Work Phone: Start: 08-31-2020 Gonadotropin luteinizing hormone Frank Diaz Work Phone: Start: 08-31-2020 Assay of thyroid stimulating hormone tsh Frank Diaz Work Phone: Start: 07-12-2020 Us transvaginal Frnak Diaz Work Phone: Start: 09-28-2017 Fracture of bone of nasal sinus (disorder) Roney VILLALTA Appendectomy Roneykalpesh VILLALTA Appendectomy Caitlin Singletary Aichhol z Work Phone: Colonoscopy Caitlin Singletary Aichhol z Work Phone: Comment on above: 2021; Esophagogastroduodenoscopy L dayana Gemini Prabhakarhjosez Work Phone: Hysterectomy Caitlin Singletary Aichhol z Work Phone: Plan of Treatment Date Care Activity Detail Author Start: 09-05-2025 DTaP/Tdap/Td vaccine (2 - Td or Tdap) DTaP/Tdap/Td vaccine (2 - Td or Tdap) NOBLE MARTINEZ [facility] Start: 07-05-2025 Screening for malignant neoplasm of cervix Cervical cancer screen [place] Start: 10-06-2023 Screening for malignant neoplasm of cervix Cervical cancer screen [place] Start: 07-30-2023 FUV, Provider: Shaneka Diaz, Status: Pen, Time: 2:30 PM FUV, Provider: Shaneka Diaz, Status: Pen, Time: 2:30 PM [facility] Work Phone: Start: 06-23-2023 End: 06-23-2023 Patient encounter procedure 06/23/2023 Office Visit Obstetrics and Gynecology Frank Diaz, EDD - GIOVANNI [address] [facility] [address] [place] [id number] [facility] Start: 06-15-2023 FUV, Provider: Shaneka Diaz, Status: Pen, Time: 2:00 PM FUV, Provider: Shaneka Diaz, Status: Pen, Time: 2:00 PM [facility] 250 DO Work Phone: Start: 06-08-2023 HOLTER 48, Provider: WILLARD HU FUEL YARD OPERATOR 1,[id number], Status: Pen, Time: 2:15 PM HOLTER 48, Provider: WILLARD HU FUEL YARD OPERATOR 1,[id number], Status: Pen, Time: 2:15 PM [facility] 250 DO Work Phone: Start: 06-08-2023 ECHO, Provider: EDMUND BAEZI ULTRASOUND 01,[id number], Status: Pen, Time: 1:30 PM ECHO, Provider: EDMUND BAEZI ULTRASOUND 01,[id number], Status: Pen, Time: 1:30 PM [facility] 250 DO Work Phone: Start: 05-13-2023 SURGNON, Provider: Anya Watkins, Status: Pen, Time: 10:00 AM SURGNON, Provider: Anya Watkins, Status: Pen, Time: 10:00 AM [facility] 250 DO Work Phone: Start: 04-28-2023 Influenza vaccination [facility] Start: 2023 Screening for malignant neoplasm of colon [facility] Start: 07-10-2022 End: 07-10-2022 Patient encounter procedure 07/10/2022 Appointment Radiology [facility] Start: 05-29-2022 Influenza vaccination Flu vaccine (#1) [facility] Start: 10-06-2021 Screening for malignant neoplasm of cervix Cervical cancer screen [facility] [place] Start: 07-05-2021 Depression Screen Depression Screen [facility] Start: 01-02-2021 End: 01-02-2021 Office Visit 01/02/2021 Office Visit Obstetrics and Gynecology Frank Diaz, FARM EQUIPMENT ENGINEER - [address] [id number] [facility] Start: 01-01-2021 End: 01-01-2021 Office Visit 01/01/2021 Office Visit Obstetrics and Gynecology Keturah Can DO [facility] [place] [address] [phone] [facility] Start: 12-18-2020 End: 12-18-2020 Office Visit 12/18/2020 Office Visit Obstetrics and Gynecology Keturah Can DO [address] [place] [address] [phone] [facility] Start: 11-27-2020 End: 11-27-2020 Office Visit 11/27/2020 Office Visit Obstetrics and Gynecology Keturah Can, DO [address] [place] [address] [facility] Start: 11-12-2020 End: 11-12-2020 Hospital Encounter [facility] Comment on above: HYSTERECTOMY VAGINAL LAPAROSCOPIC ROBOTIC ASSISTED-POSSIBLE BSO, POSSIBLE LAPAROSCOPIC COLPOPEXY Start: 11-12-2020 End: 11-12-2020 Hospital Encounter [facility] Comment on above: HYSTERECTOMY VAGINAL LAPAROSCOPIC ROBOTIC ASSISTED-POSSIBLE BSO, POSSIBLE LAPAROSCOPIC COLPOPEXY Start: 10-29-2020 End: 10-29-2020 Office Visit 10/29/2020 Office Visit Obstetrics and Gynecology Keturah Can, [address] [place] [address] [facility] Start: 09-03-2020 End: 09-03-2020 Office Visit 09/03/2020 Office Visit Obstetrics and Gynecology Keturah Can, [address] [place] [address] [facility] Start: 08-31-2020 End: 08-31-2020 Appointment 08/31/2020 Appointment Radiology [facility] Mammography Start: 07-12-2020 End: 07-12-2020 Appointment 07/12/2020 Appointment Radiology [facility] Ultrasound Start: 05-29-2020 Influenza vaccination Flu vaccine (# 1) [place] Start: 2018 Diabetes screen Diabetes screen [place], [place] Start: 2018 Lipid panel [facility] Start: 2013 Diabetes screen Diabetes screen [facility] Start: 1997 DTaP/Tdap/Td vaccine (1 - Tdap) DTaP/Tdap/Td vaccine (1 - Tdap) [facility] Start: 1996 Hepatitis C screening Hepatitis C sc reen [facility] Start: 1994 COVID-19 Vaccine (1) COVID-19 Vaccin e (1) [facility] Work Phone: Start: 1993 HIV screening HIV screen [facility] Start: 1990 Depression Monitoring Depression Mon itoring [facility] Start: 1978 COVID-19 Vaccine (#1) COVID-19 Vacci ne (#1) [facility] Start: 1978 Hepatitis C screening Hepatitis C sc reen [place] End: 07-05-2020 C.trachomatis N.gonorrhoeae DNA, Thin Prep C.trachomatis N.gonorrhoeae DNA, Thin Prep Microbiology Routine History of menorrhagia 1 Occurrences starting 07/05/2020 until 07/05/2020 [place] Comment on above: 1 Occurrences starti ng 07/05/2020 until 07/05/2020 C.trachomatis N.gonorrhoeae DNA, Thin Prep C.trachomatis N.gonorrhoeae DNA, Thin Prep Microbiology Routine History of menorrhagia 07/05/2020 5:13 PM EDT [place] End: 06-18-2022 Culture, Genital [facility] Work Phone: Comment on above: 1 Occurrences starti ng 06/18/2022 until 06/18/2022 End: 01-01-2023 Culture, Urine [facility] Work Phone: Comment on above: 1 Occurrences starti ng 01/01/2023 until 01/01/2023 End: 07-05-2020 Cytopathology procedure, preparation of smear, genital source [facility] Routine Screening for cervical cancer 1 Occurrences starting 07/05/2020 until 07/05/2020 [place] Comment on above: 1 Occurrences starti ng 07/05/2020 until 07/05/2020 End: 08-31-2020 SHAYLEE ANTONIO DIGITAL SCREEN BILATERAL SHAYLEE ANTONIO DIGITAL SCREEN BILATERAL Imaging Routine Screening mammogram, encounter for 1 Occurrences starting 08/31/2020 until 08/31/2020 [place] Comment on above: 1 Occurrences starti ng 08/31/2020 until 08/31/2020 SHAYLEE ANTONIO DIGITAL SCR EEN BILATERAL SHAYLEE ANTONIO DIGITAL SCREEN BILATERAL Imaging Routine Screening mammogram, encounter for 08/31/2020 5:14 PM EST [facility] [place], [place] Immunizations Immunization Date Immunization Notes Care Provider [employer] davisearle 09-05-2015 tetanus toxoid, redu gil diphtheria toxoid, and acellular pertussis vaccine, adsorbed Jaelyn Bright Other [facility] 07-23-2009 influenza, whole Roney YEMI ERS [facility] Payers Date Payer Category Payer Self-pay [id number] 2023 Private Health Insurance [id number] 2022 Private Health Insurance [id number] 1978 Unknown [id number] 1978 Unknown [id number] 1978 Unknown [id number] [id number] 1978 Unknown [id number] 2.16.8 [id number] 1978 Unknown [id number] [id number] 1978 Unknown [id number] 2.16.84 0.1.600425.3.579.2.593 1978 Unknown [id number] 2.16.84 0.1.985370.3.579.2.593 1978 Unknown [id number] 2.16.84 0.1.949909.3.579.2.593 1978 Unknown [id number] 2.16.84 0.1.970344.3.579.2.593 1978 Unknown [id number] 2.16.84 0.1.824628.3.579.2.593 1978 Unknown [id number] 2.16.84 0.1.132085.3.579.2.593 1978 Unknown [id number] 2.16. 840.1.201229.3.579.2.356 1978 Unknown [id number] 2.16. 840.1.602935.3.579.2.356 1978 Unknown [id number] 2.16. 840.1.284011.3.579.2.356 1978 Unknown [id number] 2.16. 840.1.287379.3.579.2.356 1978 Unknown [id number] 2.16.8 40.1.841616.3.579.2.8 1978 Unknown [id number] 2.16.8 40.1.602389.3.579.2.1068 1978 Unknown [id number] 2.16.8 40.1.385856.3.579.2.727 1978 Unknown [id number] 2.16.8 40.1.437449.3.579.2.727 1978 Unknown [id number] 2.16.8 40.1.319557.3.579.2.727 1978 Unknown [id number] 2.16.8 40.1.790991.3.579.2.727 1978 Unknown [id number] 2.16.8 40.1.419342.3.579.2.1244 1978 Unknown [id number] 2.16.8 40.1.028096.3.579.2.176 1978 Unknown [id number] 2.16.8 40.1.688819.3.579.2.176 1978 Unknown [id number] 2.16.8 40.1.462901.3.579.2.176 1978 Unknown [id number] 2.16.8 40.1.294683.3.579.2.176 1978 Unknown [id number] 2.16.8 40.1.659914.3.579.2.176 1978 Unknown [id number] 2.16.8 40.1.938540.3.579.2.176 1978 Unknown [id number] 2.16.8 40.1.876579.3.579.2.176 1978 Unknown [id number] 2.16.8 40.1.436614.3.579.2.176 1978 Unknown [id number] 2.16.8 40.1.951401.3.579.2.176 1978 Unknown [id number] 2.16.8 40.1.434827.3.579.2.176 1978 Unknown [id number] 2.16.8 40.1.109549.3.579.2.176 1978 Unknown [id number] 2.16.8 40.1.988236.3.579.2.176 1978 Unknown [id number] 2.16.8 40.1.298468.3.579.2.176 1978 Unknown [id number] 2.16.8 40.1.333082.3.579.2.176 1978 Unknown [id number] 2.16.8 40.1.925772.3.579.2.176 1978 Unknown [id number] 2.16.8 40.1.306551.3.579.2.176 1978 Unknown [id number] 2.16.8 40.1.886958.3.579.2.176 1978 Unknown [id number] 2.16.8 40.1.429702.3.579.2.176 1978 Unknown [id number] 2.16.8 40.1.573638.3.579.2.176 1978 Unknown [id number] 2.16.8 40.1.523200.3.579.2.176 1978 Unknown [id number] 2.16.8 40.1.139181.3.579.2.176 1978 Unknown [id number] 2.16.8 40.1.440128.3.579.2.176 1978 Unknown [id number] 2.16.8 40.1.511094.3.579.2.176 1978 Unknown [id number] 2.16.8 40.1.279273.3.579.2.176 1978 Unknown [id number] 2.16.8 40.1.525209.3.579.2.176 1978 Unknown [id number] 2.16.8 40.1.705345.3.579.2.176 1978 Unknown [id number] 2.16.8 40.1.736778.3.579.2.176 1978 Unknown [id number] 2.16.8 40.1.876869.3.579.2.176 1978 Unknown [id number] 2.16.8 40.1.001372.3.579.2.176 1978 Unknown [id number] 2.16.8 40.1.881312.3.579.2.176 1978 Unknown [id number] 2.16.8 40.1.073118.3.579.2.176 1978 Unknown [id number] 2.16.8 40.1.285205.3.579.2.176 1978 Unknown [id number] 2.16.8 40.1.062198.3.579.2.176 1978 Unknown [id number] 2.16.8 40.1.701051.3.579.2.176 1959 Unknown [id number] 1.2.840.195174.1.13.239.2.7.3.822155.315 1959 Unknown [id number] 1.2.840.932119.1.13.239.2.7.3.472644.315 Unknown Unknown [id number] 2.16.8 40.1.360949.3.579.2.531 Social History Date Type Detail Facility Start: 10-06-2018 End: 07-05-2020 Tobacco smoking status NHIS Never smoker [place] Start: 10-06-2018 End: 07-05-2020 Tobacco use and exposure Never used [place] Start: 07-05-2020 End: 05-01-2023 Alcohol intake Current drinker of alcohol (finding) [place] Start: 07-05-2020 Alcohol Comment social [place], [place] Start: 1980 Sex Assigned At Not on file M [place] Start: 06-08-2022 End: 06-18-2022 Exposure to SARS-CoV-2 (event) Not sure [place], [place] Start: 1980 Sex Assigned At Female F [facility] Sex Assigned At [facility] Start: 07-03-2021 End: 12-22-2022 Tobacco smoking status Ex-smoker (finding) [facility] Tobacco smoking status Never [facility] Occasional caffeine consumption Occasional caffeine consumption [facility] 250 DO Work Phone: Start: 05-01-2023 History SDOH Alcohol Frequency 2 [facility] [employer] Start: 05-01-2023 History SDOH Alcohol Std Drinks 1 [facility] Medical Equipment Procedure Code Equipment Code Equipment Origin al Text Equipment Identifier Dates fluorescein ophthalmic strip 1 mg [id number] Start: 05-01-2023 End: 05-01-2023 Functional Status Date Assessment Result Facility 12-22-2022 Functional Status N/A [facility] 09-01-2022 Functional Status N/A [facility] Clinical Notes 07-18-2022 to 05-01-2023 Discharge InstructionsAttachments Note Date & Type Note Facility 05-01-2023 Hospital Discharg e instructions Ericka Mackenzie PA-C - 05/01/2023 2:50 PM EDT Please follow up with PCP. Recommend benadryl for itching. Return to the ED if you develop worsening rash, throat swelling, shortness of breath, fevers, eye redness, eye pain, vision changes. The following attachments cannot be sent through Care Everywhere.Poison Loli - [place] - and [place] (Serbian)documented in this encounter [facility] 12-22-2022 Hospital Discharg e instructions Patient Education 12/22/2022 08:33:41 Dietary Guidelines to Help Prevent Kidney Stones Dietary Guidelines to Help Prevent Kidney Stones Kidney stones are deposits of minerals and salts that form inside your kidneys. Your risk of developing kidney stones may be greater depending on your diet, your lifestyle, the medicines you take, and whether you have certain medical conditions. Most people can reduce their chances of developing kidney stones by following the instructions below. Depending on your overall health and the type of kidney stones you tend to develop, your dietitian may give you more specific instructions. What are tips for following this plan? Reading food labels Choose foods with no salt added or low-salt labels. Limit your sodium intake to less than 1500 mg per day. Choose foods with calcium for each meal and snack. Try to eat about 300 mg of calcium at each meal. Foods that contain 200 500 mg of calcium per serving include: ?8 oz (237 ml) of milk, fortified nondairy milk, and fortified fruit juice. ?8 oz (237 ml) of kefir, yogurt, and soy yogurt. ?4 oz (118 ml) of tofu. ?1 oz of cheese. ?1 cup (300 g) of dried figs. ?1 cup (91 g) of cooked broccoli. ?1 3 oz can of sardines or mackerel. Most people need 1000 to 1500 mg of calcium each day. Talk to your dietitian about how much calcium is recommended for you. Shopping Buy plenty of fresh fruits and vegetables. Most people do not need to avoid fruits and vegetables, even if they contain nutrients that may contribute to kidney stones. When shopping for convenience foods, choose: ?Whole pieces of fruit. ?Premade salads with dressing on the side. ?Low-fat fruit and yogurt smoothies. Avoid buying frozen meals or prepared deli foods. Look for foods with live cultures, such as yogurt and kefir. Cooking Do not add salt to food when cooking. Place a salt shaker on the table and allow each person to add his or her own salt to taste. Use vegetable protein, such as beans, textured vegetable protein (TVP), or tofu instead of meat in pasta, casseroles, and soups. Meal planning Eat less salt, if told by your dietitian. To do this: ?Avoid eating processed or premade food. ?Avoid eating fast food. Eat less animal protein, including cheese, meat, poultry, or fish, if told by your dietitian. To do this: ?Limit the number of times you have meat, poultry, fish, or cheese each week. Eat a diet free of meat at least 2 days a week. ?Eat only one serving each day of meat, poultry, fish, or seafood. ?When you prepare animal protein, cut pieces into small portion sizes. For most meat and fish, one serving is about the size of one deck of cards. Eat at least 5 servings of fresh fruits and vegetables each day. To do this: ?Keep fruits and vegetables on hand for snacks. ?Eat 1 piece of fruit or a handful of berries with breakfast. ?Have a salad and fruit at lunch. ?Have two kinds of vegetables at dinner. Limit foods that are high in a substance called oxalate. These include: ?Spinach. ?Rhubarb. ?Beets. ?Potato chips and british fries. ?Nuts. If you regularly take a diuretic medicine, make sure to eat at least 1 2 fruits or vegetables high in potassium each day. These include: ?Avocado. ?Banana. ?Larose, prune, carrot, or tomato juice. ?Baked potato. ?Cabbage. ?Beans and split peas. General instructions Drink enough fluid to keep your urine clear or pale yellow. This is the most important thing you can do. Talk to your health care provider and dietitian about taking daily supplements. Depending on your health and the cause of your kidney stones, you may be advised: ?Not to take supplements with vitamin C. ?To take a calcium supplement. ?To take a daily probiotic supplement. ?To take other supplements such as magnesium, fish oil, or vitamin B6. Take all medicines and supplements as told by your health care provider. Limit alcohol intake to no more than 1 drink a day for non women and 2 drinks a day for men. One drink equals 12 oz of beer, 5 oz of wine, or 1 oz of hard liquor. Lose weight if told by your health care provider. Work with your dietitian to find strategies and an eating plan that works best for you. What foods are not recommended? Limit your intake of the following foods, or as told by your dietitian. Talk to your dietitian about specific foods you should avoid based on the type of kidney stones and your overall health. Grains Breads. Bagels. Rolls. Baked goods. Salted crackers. Cereal. Pasta. Vegetables Spinach. Rhubarb. Beets. Canned vegetables. Pickles. Olives. Meats and other protein foods Nuts. Nut butters. Large portions of meat, poultry, or fish. Salted or cured meats. Deli meats. Hot dogs. Sausages. Dairy Cheese. Beverages Regular soft drinks. Regular vegetable juice. Seasonings and other foods Seasoning blends with salt. Salad dressings. Canned soups. Soy sauce. Ketchup. Barbecue sauce. Canned pasta sauce. Casseroles. Pizza. Lasagna. Frozen meals. Potato chips. [place] fries. Summary You can reduce your risk of kidney stones by making changes to your diet. The most important thing you can do is drink enough fluid. You should drink enough fluid to keep your urine clear or pale yellow. Ask your health care provider or dietitian how much protein from animal sources you should eat each day, and also how much salt and calcium you should have each day. This information is not intended to replace advice given to you by your health care provider. Make sure you discuss any questions you have with your health care provider. Document Released: 01/09/2012 Document Revised: 01/04/2020 Document Reviewed: 08/25/2017 [employer] Patient Education 2020 [employer] Follow Up Care 09/01/2022 13:32:46 With:PAWAN HAWLEY, Roney Kumar, URL Address: [facility] [address], [place] [address]- When: Unknown [facility] 09-01-2022 Hospital Discharg e instructions Patient Education 09/01/2022 08:28:46 Dietary Guidelines to Help Prevent Kidney Stones Dietary Guidelines to Help Prevent Kidney Stones Kidney stones are deposits of minerals and salts that form inside your kidneys. Your risk of developing kidney stones may be greater depending on your diet, your lifestyle, the medicines you take, and whether you have certain medical conditions. Most people can reduce their chances of developing kidney stones by following the instructions below. Depending on your overall health and the type of kidney stones you tend to develop, your dietitian may give you more specific instructions. What are tips for following this plan? Reading food labels Choose foods with no salt added or low-salt labels. Limit your sodium intake to less than 1500 mg per day. Choose foods with calcium for each meal and snack. Try to eat about 300 mg of calcium at each meal. Foods that contain 200 500 mg of calcium per serving include: ?8 oz (237 ml) of milk, fortified nondairy milk, and fortified fruit juice. ?8 oz (237 ml) of kefir, yogurt, and soy yogurt. ?4 oz (118 ml) of tofu. ?1 oz of cheese. ?1 cup (300 g) of dried figs. ?1 cup (91 g) of cooked broccoli. ?1 3 oz can of sardines or mackerel. Most people need 1000 to 1500 mg of calcium each day. Talk to your dietitian about how much calcium is recommended for you. Shopping Buy plenty of fresh fruits and vegetables. Most people do not need to avoid fruits and vegetables, even if they contain nutrients that may contribute to kidney stones. When shopping for convenience foods, choose: ?Whole pieces of fruit. ?Premade salads with dressing on the side. ?Low-fat fruit and yogurt smoothies. Avoid buying frozen meals or prepared deli foods. Look for foods with live cultures, such as yogurt and kefir. Cooking Do not add salt to food when cooking. Place a salt shaker on the table and allow each person to add his or her own salt to taste. Use vegetable protein, such as beans, textured vegetable protein (TVP), or tofu instead of meat in pasta, casseroles, and soups. Meal planning Eat less salt, if told by your dietitian. To do this: ?Avoid eating processed or premade food. ?Avoid eating fast food. Eat less animal protein, including cheese, meat, poultry, or fish, if told by your dietitian. To do this: ?Limit the number of times you have meat, poultry, fish, or cheese each week. Eat a diet free of meat at least 2 days a week. ?Eat only one serving each day of meat, poultry, fish, or seafood. ?When you prepare animal protein, cut pieces into small portion sizes. For most meat and fish, one serving is about the size of one deck of cards. Eat at least 5 servings of fresh fruits and vegetables each day. To do this: ?Keep fruits and vegetables on hand for snacks. ?Eat 1 piece of fruit or a handful of berries with breakfast. ?Have a salad and fruit at lunch. ?Have two kinds of vegetables at dinner. Limit foods that are high in a substance called oxalate. These include: ?Spinach. ?Rhubarb. ?Beets. ?Potato chips and british fries. ?Nuts. If you regularly take a diuretic medicine, make sure to eat at least 1 2 fruits or vegetables high in potassium each day. These include: ?Avocado. ?Banana. ?Larose, prune, carrot, or tomato juice. ?Baked potato. ?Cabbage. ?Beans and split peas. General instructions Drink enough fluid to keep your urine clear or pale yellow. This is the most important thing you can do. Talk to your health care provider and dietitian about taking daily supplements. Depending on your health and the cause of your kidney stones, you may be advised: ?Not to take supplements with vitamin C. ?To take a calcium supplement. ?To take a daily probiotic supplement. ?To take other supplements such as magnesium, fish oil, or vitamin B6. Take all medicines and supplements as told by your health care provider. Limit alcohol intake to no more than 1 drink a day for non women and 2 drinks a day for men. One drink equals 12 oz of beer, 5 oz of wine, or 1 oz of hard liquor. Lose weight if told by your health care provider. Work with your dietitian to find strategies and an eating plan that works best for you. What foods are not recommended? Limit your intake of the following foods, or as told by your dietitian. Talk to your dietitian about specific foods you should avoid based on the type of kidney stones and your overall health. Grains Breads. Bagels. Rolls. Baked goods. Salted crackers. Cereal. Pasta. Vegetables Spinach. Rhubarb. Beets. Canned vegetables. Pickles. Olives. Meats and other protein foods Nuts. Nut butters. Large portions of meat, poultry, or fish. Salted or cured meats. Deli meats. Hot dogs. Sausages. Dairy Cheese. Beverages Regular soft drinks. Regular vegetable juice. Seasonings and other foods Seasoning blends with salt. Salad dressings. Canned soups. Soy sauce. Ketchup. Barbecue sauce. Canned pasta sauce. Casseroles. Pizza. Lasagna. Frozen meals. Potato chips. Mozambican fries. Summary You can reduce your risk of kidney stones by making changes to your diet. The most important thing you can do is drink enough fluid. You should drink enough fluid to keep your urine clear or pale yellow. Ask your health care provider or dietitian how much protein from animal sources you should eat each day, and also how much salt and calcium you should have each day. This information is not intended to replace advice given to you by your health care provider. Make sure you discuss any questions you have with your health care provider. Document Released: 01/09/2012 Document Revised: 01/04/2020 Document Reviewed: 08/25/2017 [employer] Patient Education 2020 [employer]. Follow Up Care 07/31/2022 10:50:53 With:PAWAN HAWLEY, Roney Kumar, URL Address: [facility] [address] , [place] [address]- When: Unknown [facility] 07-18-2022 Evaluation note Encounter Date Diagnosis Assessment Notes Jun, Thrush (ICD-10 - B37.0) Thrush home care material was printed Drink plenty fluids, get plenty of rest. Continue home medications as prescribed. Use the nystatin suspension as prescribed. Follow-up with your family physician if no improvement in 2 to 3 days. Jun, Sore throat (ICD-10 - J02.9) [employer] Other Chief complaint Narrative - ReportedANDREA LONG is being seen for a consultation for syncope, orthostatic hypotension.[facility] [place] 250 DO Work Phone: Evaluation + Plan note Future Appointments Appointment Date:12/22/2022 01:15:00 PM Scheduled Provider:Roney VILLALTA MD Location:[facility] Appointment Type:URO Office Visit [facility] [employer] evaluation + Plan note Future Appointments Appointment Date:07/06/2023 12:45:00 PM Scheduled Provider:Roney VILLALTA MD Location:[facility] Appointment Type:URO Office Visit [facility] [employer] evaluation noteNo assessment information available [facility] Work Phone: Evaluation note* Diagnosis Postcoital bleeding documented in this encounter [employer] Phone: evalqkyghx note* Diagnosis Dysuria Pelvic pain documented in this encounter [employer] Phone: evalikacfy note* Diagnosis Hot flashes Symptomatic menopausal or female climacteric states documented in this encounter [employer] Phone: evaluwhqbe note* Diagnosis Poison loli- Primary Contact dermatitis and other eczema due to plants (except food) documented in this encounter [employer] [facility] Narrative - Reported* Type Description Date Medical History migraine headache Medical History depression Medical History anxiety Surgical History appendectomy Surgical History partial hysterectomy Hospitalization History see above [employer] Other Hospital course Narrative No data available for this section [facility] iSSimple progress note No data available for this section [facility] Assessments Diagnosis Screening for cervical cancer Screening for malignant neoplasm of the cervix History of menorrhagia Personal history of other genital system and obstetric disorders Diagnosis History of menorrhagia Personal history of other genital system and obstetric disorders Diagnosis Hot flashes Symptomatic menopausal or female climacteric states Diagnosis Screening mammogram, encounter for Diagnosis Abnormal mammogram Abnormal mammogram, unspecified Diagnosis Abnormal mammogram Abnormal mammogram, unspecified Diagnosis Preoperative testing Preoperative examination, unspecified Diagnosis Fatigue, unspecified type Advance Directives No Advanced Directives Records FoundDocuments on File Type Date Recorded 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 ACP-Advance Directive 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 Documents on File Type Date Recorded 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 ACP-Advance Directive 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 Latest Code Status on File Code Status Date Activated Date Inactivated Comments Full Code 11/12/2020 2:36 PM 11/12/2020 7:59 PM Advance Directive Response Recorded Date/ Time Advance Directives No December 27 3:44pm Latest Code Status on File Code Status Date Activated Date Inactivated Comments Full Code 11/12/2020 2:36 PM 11/12/2020 7:59 PM Reason for Referral Status Reason Specialty Diagnoses / Procedures Referred By Contact Referred To Contact Pending Review Radiology Diagnoses History of menorrhagia Procedures US NON OB TRANSVAGINAL Frank Diaz, FARM EQUIPMENT ENGINEER - CNM [address] [place] [address] Status Reason Specialty Diagnoses / Procedures Referre d By Contact Referred To Contact Open Radiology Diagnoses Abnormal mammogram Procedures US BREAST COMPLETE RIGHT Frank Diaz, EDD - CNBecca [address] [place] [address] [facility] Ul[facility]ound [address] [place] [address] Summary Purpose Family History No Family History Records FoundUnknown Family Member Name Dates Details Heart problem: Mother Status:Active Family history of diabetes m ellitus: Mother(V18.0, Z83.3) Status:Active Family history of kidney dis ease: Mother(V18.69, Z84.1) Status:Active Unknown Family Member Name Dates Details Heart problem: Mother Status:Active Family history of diabetes m ellitus: Mother(V18.0, Z83.3) Status:Active Family history of kidney dis ease: Mother(V18.69, Z84.1) Status:Active Unknown Family Member Name Dates Details Heart problem: Mother Status:Active Family history of diabetes m ellitus: Mother(V18.0, Z83.3) Status:Active Family history of kidney dis ease: Mother(V18.69, Z84.1) Status:Active Unknown Family Member Name Dates Details Heart problem: Mother Status:Active Family history of diabetes m ellitus: Mother(V18.0, Z83.3) Status:Active Family history of kidney dis ease: Mother(V18.69, Z84.1) Status:Active Chief Complaint and Reason for Visit Chief Complaint r27.0 Additional Source Comments Reason for Visit (unrecogniz ed section and content) Status Reason Specialty Diagnoses / Procedures Referred By Contact Referred To Contact Pending Review Radiology Diagnoses History of menorrhagia Procedures US NON OB TRANSVAGINAL Frank Diaz APRN - CNM [address] [place] [address] [address] [place] [phone] Status Reason Specialty Diagnoses / Procedures Referred By Contact Referred To Contact Pending Review Radiology Diagnoses Screening mammogram, encounter for Procedures SHAYLEE ANTONIO DIGITAL SCREEN BILATERAL SHAYLEE DIGITAL SCREEN W OR WO CAD BILATERAL Frank Diaz APRN - CNM [address] [place] [phone] [facility] [address] [place] [address] Status Reason Specialty Diagnoses / Procedures Referre d By Contact Referred To Contact Open Radiology Diagnoses Abnormal mammogram Procedures US BREAST COMPLETE RIGHT Frank Diaz APRN - CNM [address] [place] [phone] [facility] Ultrasound [address] [place] [address] Status Reason Specialty Diagnoses / Procedures Referre d By Contact Referred To Contact Closed Radiology Diagnoses Abnormal mammogram Procedures SHAYLEE ANTONIO DIGITAL DIAGNOSTIC UNILATERAL RIGHT SHAYLEE DIAGNOSTIC W CAD RIGHT Frank Diaz, FARM EQUIPMENT ENGINEER - CNM [address] [place] [address] [facility] [address] [place] [address] Reason Comments Rash INFORMATION SOURCE (unrecogn ized section and content) DATE CREATED AUTHOR 04/22/2021 [facility] DATE CREATED AUTHOR AUTHOR'S ORGANIZ ATION 01/03/2023 [facility] DATE CREATED AUTHOR AUTHOR'S ORGANIZ ATION 02/11/2023 [facility] DATE CREATED AUTHOR AUTHOR'S ORGANIZ ATION 04/24/2023 [employer] DATE CREATED AUTHOR AUTHOR'S ORGANIZ ATION 05/21/2023 [facility] DATE CREATED AUTHOR AUTHOR'S ORGANIZ ATION [facility]20[facility] DATE CREATED AUTHOR AUTHOR'S ORGANIZ ATION 07/05/2023 [facility] DATE CREATED AUTHOR AUTHOR'S ORGANIZ ATION 07/07/2023 [facility] DATE CREATED AUTHOR AUTHOR'S ORGANIZ ATION 08/01/2023 [facility] DATE CREATED AUTHOR AUTHOR'S ORGANIZ ATION 09/12/2023 [facility] Care Teams (unrecognized sec tion and content) Team Status: Inactive Member Role Status Dates Fernando Ragsdale DO Attending Provider Active NON STAFF Primary Care Provider Active Team Status: Active Member Role Status Dates NON STAFF Primary Care Provider Active [employer] Relationship Specialty Start Date End Date Caitlin Finch [address] [address] PCP - General Nurse Practitioner 07/09/20 [employer] Relationship Specialty Start Date End Date Caitlin Finch [address] [place] [address] PCP - General Nurse Practitioner 07/09/20 [employer] Relationship Specialty Start Date End Date Caitlin Finch [address] [place] [address] PCP - General Nurse Practitioner 07/09/20 [employer] Relationship Specialty Start Date End Date Caitlin Finch [address] [place] [address] PCP - General Nurse Practitioner 07/09/20 Goals (unrecognized section and content) Goals may be documented in a n alternate sectionNo Information No data available for this section No data available for this section Ordered Prescriptions (unrec ognized section and content) Prescription Sig Dispensed Refills Start Date End Da te predniSONE (DELTASONE) 10 MG tablet Take 4 tablets by mouth daily for 5 days, THEN 2 tablets daily for 5 days, THEN 1 tablet daily for 5 days, THEN 0.5 tablets daily for 5 days. 38 tablet 0 05/01/2023 05/21/2023 Scheduled Active and Recently Administ ered Medications (unrecognized section and content) Medication Order 04/29/2023 04/30/2023 05/01/2023 fluorescein ophthalmic strip 1 mg (COMPLETED) 1 mg (1 strip), Both Eyes, ONCE, 1 dose, On Thu05/01/23 at 1445, 1 mg = 1 strip 1451 (Given - Provid er: Philip Daugherty RN - Comment: Admin by Dontrell Mackenzie PA-C) FOR RECORDS PERTAINING TO PATIENTS WHO ARE OR HAVE BEEN ENROLLED IN A CHEMICAL DEPENDENCY/SUBSTANCEABUSE PROGRAM, SOME INFORMATION MAY BE OMITTED. This clinical summary was aggregated from multiple sources. Caution should be exercised in using it in the provision of clinical care. This summary normalizes information from multiple sources, and as a consequence, information in this document may materially change the coding, format and clinical context of patient data. In addition, data may be omitted in some cases. CLINICAL DECISIONS SHOULD BE BASED ON THE PRIMARY CLINICAL RECORDS. [employer] provides no warranty or guarantee of the accuracy or completeness of information in this document.
== END 2023-08-21 19:51 | disposition home or self-care (01) ==
PROVIDERS: Emergency Provider Emergency Medicine Emergency Medical Services; PCP Nurse Practitioner
DX: R07.9 Chest pain, unspecified (principal); F41.9 Anxiety disorder, unspecified; M79.7 Fibromyalgia; G43.909 Migraine, unspecified, not intractable, without status migrainosus; K58.9 Irritable bowel syndrome, unspecified; Z87.891 Personal history of nicotine dependence; Z79.899 Other long term (current) drug therapy
CPT/HCPCS: 36415; 71045; 80048; 83880; 84484; 85025; 93005; 99285

== ENCOUNTER 2023-08-26 14:05 | Outpatient (OUT) | payer OTHER, SELFPAY ==
[2023-08-26 12:54] LABS: Hemoglobin 13.3 g/dL (12.0-16.0)
[2023-08-26 12:58] LABS: Bilirubin Urine NEGATIVE (NEGATIVE); Blood Urine NEGATIVE (NEGATIVE); Clarity Urine CLEAR (CLEAR); Color Urine YELLOW (YELLOW); Glucose Urine UA NEGATIVE (NEGATIVE); Ketones Urine TRACE mg/dL (NEGATIVE); Leukocyte Esterase Urine NEGATIVE (NEGATIVE); Nitrite Urine NEGATIVE (NEGATIVE); Protein Urine NEGATIVE (NEG/TRACE); Specific Gravity Urine 1.015 (1.005-1.025); Urobilinogen Urine 0.2 EU/dL (0.2-1.0)
[2023-08-26 13:08] LABS: Bacteria Urine SMALL #/HPF (NONE SEEN); Cast Seen? NONE SEEN #/LPF (NONE SEEN); Crystals Seen? None Seen #/HPF (None Seen); Mucus Urine NONE SEEN (NONE SEEN); RBC Urine 0-2 #/HPF (0-2); Squamous Epithelial Cell Urine FEW #/LPF (NONE/RARE); WBC Urine NONE SEEN #/HPF (NONE SEEN)
--- NOTE | 2023-08-26 13:27 | RT_ITS ---
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 Findings were considered accurate and reproducible. Both pre- and post-bronchodilator values utilized for spirometry. Due to software limitations, no prior studies (if performed previously) are currently available for comparison. Spirometry (based on pre-bronchodilator values): -FEV1/FVC: Normal @ 75% -FEV1: Low normal @ 81% -FVC: Normal @ 87% -There is no significant bronchodilator response. Lung volumes by plethysmography: -RV: Low normal @ 82% -TLC: Normal @ 92% Diffusion capacity: -DLCO: Normal @ 86% when corrected for Hb 13.3g/dL Flow-volume loop: -Mild obstructive pattern Impressions: -Spirometry is trending towards mild obstruction. Lung volumes are normal. The diffusion capacity is normal. Overall study suggests an underlying obstructive process such as COPD/emphysema. Clinical correlation required. Electronically Signed On 08-26-2023 17:13:01 EST by Rush Chairez
[2023-08-26 13:32] VITALS: PULSE 87; O2SAT 97
[2023-08-26] MEDS: ALBUTEROL SULFATE 2.5 MG/3 ML VIAL NEB IH (13:32)
--- NOTE | 2023-08-26 14:10 | XR_ITS ---
The [address] [address] Patient Name: ANDREA CORNELIUS MRN: [id number] date: 1980 Sex: F Assigned Patient Location: CARD Current Patient Location: CARD Accession/Order Number: [id number] Exam Date: 08/26/2023 14:15 Report Date: 08/26/2023 15:30 At the request of: SALBADOR TRAN Procedure: XR chest 2V EXAM: XR chest 2V HISTORY: Dyspnea R06.00 COMPARISON: 08/21/2023 TECHNIQUE: Upright PA and lateral chest x-ray FINDINGS: The heart is not enlarged and the vasculature is not distended. No acute infiltrate, effusion or pneumothorax is identified. The osseous structures are grossly intact. XR/XR chest 2V IMPRESSION: No acute infiltrate or evidence of cardiac decompensation. Given slight differences in technique, the overall appearance of the chest is unchanged. Electronically authenticated by: CAMERON BABCOCK Date: 08/26/2023 15:30
== END 2023-08-26 14:06 | disposition home or self-care (01) ==
LOC: CARD 14:05
PROVIDERS: PCP Nurse Practitioner; Visit Provider Nurse Practitioner
DX: R06.00 Dyspnea, unspecified (principal); R30.0 Dysuria
CPT/HCPCS: 36415; 71046; 81001; 85018; 87086; 94060; 94726; 94729

== ENCOUNTER 2024-03-18 07:28 | Day surgery (SDC) | payer OTHER, MEDICARE, SELFPAY ==
--- OUTSIDE RECORDS SUMMARY | 2024-03-18 07:33 | XMS_ITS ---
Patient Summarization (C-CDA 2.1 CCD) Created on: March 18, 2024 ANDREA LONG : 1980 Sex: Female Author Organization Sample organization Care Team Providers Care Analyst [employer] Name Role Phone Unavailable Primary Care Provider UnavailCiatlin Choi Primary Care Provider DO Fernando Ragsdale Attending Provider NON STAFF Primary Care Provider Unavaillorrie e Caitlin Finch Primary Care Provider [phone] Jaelyn Bright Unavailable CAITLIN FINCH Primary Care Physician [phone] Caitlin Finch Primary Care Provider [phone] AICHHOLZ, CEREAL CHEMIST CAITLIN Primary Care Unavailable MIGUEL ., BENEDICT Admitting Unavailable MIGUEL .BENEDICT Attending Unavailable MIGUEL ., BENEDICT Consulting Unavailable REGAN ., DR JAFFE Admitting Unavailable AICHHOLZ, CEREAL CHEMIST CAITLIN Primary Care Unavailable REGAN ., DR JAFFE Attending Unavailable CARMITA, DR NOAH Kumar Consulting Unavailable REGAN .DR JAFFE Consulting Unavailable KIRILL Laboy, DR WILSON Consulting Unavailable JANA MARTIN Consulting Unavailable AICHHOLZ, CEREAL CHEMIST CAITLIN Consulting Unavailable AICHHOLZ, CEREAL CHEMIST CAITLIN Primary Care Unavailable AICHHOLZ, CEREAL CHEMIST CAITLIN Admitting Unavailable AICHHOLZ, CEREAL CHEMIST CAITLIN Attending Unavailable ANDREW, DR CHIDI Kumar Consulting Unavailable AICHHOLZ, CEREAL CHEMIST CAITLIN Consulting Unavailable AICHHOLZ, CEREAL CHEMIST CAITLIN Primary Care Unavailable AICHHOLZ, CEREAL CHEMIST CAITLIN Admitting Unavailable AICHHOLZ, CEREAL CHEMIST CAITLIN Attending Unavailable PAWAN ., DR SIM Admitting Unavailable AICHHOLZ, CEREAL CHEMIST CAITLIN Primary Care Unavailable PAWAN ., DR SIM Attending Unavailable PAWAN ., DR SIM Consulting Unavailable AICHHOLZ, CEREAL CHEMIST CAITLIN Primary Care Unavailable AICHHOLZ, CEREAL CHEMIST CAITLIN Admitting Unavailable AICHHOLZ, CEREAL CHEMIST CAITLIN Attending Unavailable ANDREW, DR CHIDI Kumar Consulting Unavailable KIRILL ., DR WILSON Admitting Unavailable AICHHOLZ, CEREAL CHEMIST CAITLIN Primary Care Unavailable KIRILL ., DR WILSON Attending Unavailable HAY ., DR WILSON Consulting Unavailable Larissa Fincha Gemini Unavailable Unavailable Unavailable Caitlin Finch Primary Care Provider [phone] Calos Watkinsf Referring Unavailable AicCaitlin teague J Primary Care Unavailable Diaz, Shaneka Attending Unavailable Diaz, Shaneka Admitting Unavailable Diaz, Shaneka Attending Unavailable Diaz, Shaneka Referring Unavailable Aichholz, . Caitlin Gemini Primary Care Unavailab le Diaz, Shaneka Attending Unavailable Diaz, Shaneka Referring Unavailable Aichholz, Mrs. Caitlin Singletary Primary Care Unavailab le Anya Watkins Attending Unavailable Aichholz, Mrs. Caitlin Singletary Primary Care Unavailab le Diaz, Shaneka Attending Unavailable Diaz, Shaneka Referring Unavailable Aichholz, Mrs. Caitlin Singletary Primary Care Unavailab le Aichholz, Mrs. Tucker Gemini Primary Care Unavailab le Diaz, Shaneka Attending Unavailable Aichholz, Mrs. Tucker Gemini Primary Care Unavailab le Diaz, Shaneka Attending Unavailable Roney VILLALTA Attending Unavailable Roney VILLALTA Attending Unavailable Roney VILLALTA Attending Unavailable CAITLIN FINCH Referring Unavailable Roney VILLALTA Attending Unavailable DIAZ, SHANEKA Attending Unavailable AICHHOLRemigio, CAITLIN GEMINI Primary Care Unavailable Ramona Jimenez Unavailable Caitlin Finch Primary Care Provider Stef HAND FUNNEL COATER, Caitlin Unavailable Ugo Ramsay MD Primary Care Provider CAITLIN FINCH Primary Care Unavailable PARINJA, KEYLA Referring Unavailable CAITLIN FINCH. Primary Care Unavailable PARINJA, KEYLA Referring Unavailable CAITLIN FINCH Primary Care Unavailable PARINJA, KEYLA Referring Unavailable [...] Unavailable AICHHOLZ, CAITLIN J. Primary Care Unavailable CORDERO, PATRICIA M Referring Unavailable AICHHOLZ, CAITLIN J. Primary Care [...] Unavailable AICHHOLZ, CAITLIN J. Primary Care Unavailable CORDERO, PATRICIA M Referring Unavailable AICHHOLZ, CAITLIN J. Primary Care Unavailable CORDERO, PATRICIA M Referring Unavailable AICHHOLZ, CAITLIN J. Primary Care Unavailable CORDERO, PATRICIA M Referring Unavailable AICHHOLZ, CAITLIN J. Primary Care Unavailable CORDERO, PATRICIA M Referring Unavailable AICHHOLZ, CAITLIN J. Primary Care Unavailable CORDERO, PATRICIA M Referring Unavailable AICHHOLZ, CAITLIN J. Primary Care Unavailable CORDERO, PATRICIA M Referring Unavailable AICHHOLZ, CAITLIN J. Primary Care Unavailable PARINJA, KEYLA Referring Unavailable AICHHOLZ, CAITLIN J. Primary Care Unavailable CORDERO, PATRICIA M Referring Unavailable AICHHOLZ, CAITLIN J. Primary Care Unavailable PARINJA, KEYLA Referring Unavailable AICHHOLZ, CAITLIN J. Primary Care Unavailable PARINJA, KEYLA Referring Unavailable NOEMI GODINEZ Attending Unava ilable AICHHOLZ, CAITLIN J. Primary Care Unavailable AICHHOLZ, CAITLIN J. Primary Care Unavailable PARINJA, KEYLA Referring Unavailable AICHHOLZ, CAITLIN J. Primary Care Unavailable PARINJA, KEYLA Referring Unavailable Aichholz GRINDER CARBON PLANTALEJANDRA, Caitlin J Primary Care Provider FRANK DIAZ Referring Unavailabl e AICHHOLZ, CAITLIN J. Primary Care Unavailable FRANK DIAZ Referring Unavailabl e AICHHOLZ, CAITLIN J. Primary Care Unavailable FARNK DIAZ Referring Unavailabl e AICHHOLZ, CAITLIN J. Primary Care Unavailable FRANK DIAZ Attending Unavailabl e FRANK DIAZ Referring Unavailabl e AICHHOLZ, CAITLIN J. Primary Care Unavailable WADE ANDERSON Attending Unavailable AICHHOLZ, CAITLIN J Referring Unavailable AICHHOLZ, CAITLIN J Primary Care Unavailable WADE ANDERSON Attending Unavailable AICHHOLZ, CAITLIN J Referring Unavailable AICHHOLZ, CAITLIN J Primary Care Unavailable WADE ANDERSON Attending Unavailable AICHHOLZ, CAITLIN J Referring Unavailable AICHHOLZ, CAITLIN J Primary Care Unavailable AICHHOLZ, CAITLIN Attending Unavailable ROMANHBASIMZ, CAITLIN Attending Unavailable LUKAS JHAVERI Attending Unavailable LUKAS JHAVERI Referring Unavailable AICODALYSZ, CAITLIN Attending Unavailable SHARA ELKINS Attending Unavailable LUKAS JHAVERI Referring Unavailable LUKAS JHAVERI Attending Unavailable PAUL HENDRIX Attending Unavailable LUKAS JHAVERI Referring Unavailable Allergies Allergy Classification Reported Allergen(s) Allergy Type Date of Onset Reaction(s) Facility (9 sources) bee pollen Propensity to adverse reactions to drug 05-27-20 17 [place] (20 sources) Metoclopramide; Translations: [metoclopramide] Drug Allergy 05-27-20 17 Feeling agitated (finding) [place] (11 sources) Penicillins; Translations: [PENICILLINS] Propensity to adverse reactions to drug 05-27-20 17 [place] (8 sources) Amitriptyline; Translations: [AMITRIPTYLINE] Drug Allergy 04-30-20 21 [facility] (2 sources) Penicillin V Drug Allergy rash [facility] frents Other (3 sources) Penicillin; Translations: [penicillin] Drug Allergy Eruption of skin (disorder) [facility] [place] (5 sources) Penicillins Propensity to adverse reactions to drug 05-27-20 17 [facility] (4 sources) Pollen Propensity to adverse reactions to drug 05-27-20 17 [facility] Work Phone: (2 sources) Iothalamate; Translations: [Reglan] Drug Allergy 12-09-19 16 [facility] Repository (1 source) Penicillins Drug allergy (disorder) 08-31-20 14 [facility] Rep[facility] (4 sources) Penicillins; Translations: [Penicillins] Allergy to drug (finding) Hives [facility] 250 DO Work Phone: (1 source) Metoclopramide Drug Allergy 05-13-20 23 [facility] Repository (1 source) Penicillins Drug allergy (disorder) 05-13-20 23 [facility] Rep[facility] (1 source) Metoclopramide; Translations: [METOCLOPRAMIDE HCL] Drug Allergy 07-15-20 23 [facility] 3 Repository (1 source) Penicillin G Drug Allergy 09-24-20 22 Unknown [employer] Other (1 source) Allergies Reconciled Propensity to adverse reactions Unknown [employer] [facility] frents Other (1 source) Amoxicillin Drug Allergy 06-25-20 23 Rash [facility] (1 source) Penicillins Drug Intolerance 06-22-20 17 Rash [facility] (2 sources) Bee pollen; Translations: [BEE POLLEN] Drug Allergy 05-27-20 [facility] (2 sources) buPROPion; Translations: [BUPROPION HCL] Drug Allergy 04-21-[address] [facility] Encounters Encounter Date Encounter Type Care Provider Facility Start: 07-11-2024 ambulatory Roney VILLALTA [place] ty:[facility] Start: 03-10-2024 End: 03-10-2024 ambulatory PAUL MONTGOMERYZULEYMA Not Available Start: 03-08-2024 End: 03-08-2024 ambulatory LUKAS JHAVERI Not Available Start: 03-07-2024 End: 03-08-2024 ambulatory SHARA ELKINS Not Available Start: 03-01-2024 End: 03-01-2024 ambulatory WADE Mcginnis [facility] Start: 02-16-2024 End: 02-16-2024 ambulatory CAITLIN FINCH Not Available Start: 01-25-2024 End: 01-25-2024 ambulatory LUKAS JHAVERI Not Available Start: 01-19-2024 ambulatory FRANK DIAZ [place] Start: 01-05-2024 End: 01-05-2024 ambulatory CAITLIN FINCH Not Available Start: 12-31-2023 End: 12-31-2023 ambulatory WADE Mcginnis [facility] Start: 12-04-2023 Orders Only Sarika Armendariz mandeep [employer]-CEREAL CHEMIST Work Phone: [facility] Start: 11-17-2023 End: 11-18-2023 ambulatory CAITLIN FINCH [facility] Start: 11-11-2023 End: 11-12-2023 ambulatory FRANK DIAZ [facility] Start: 11-11-2023 End: 11-11-2023 Subsequent hospital visit by physician Caitlin Finch Work Phone: [facility] Comment on above: Menopausal symptoms; Vaginal discomfort Start: 11-11-2023 Clinisync Result Encounter Generic External Data Provider [facility] External Department Unsolicited Start: 11-11-2023 Clinisync Result Encounter Generic External Data Provider [facility] External Department Unsolicited Start: 11-06-2023 End: 11-07-2023 ambulatory CA[address] J[address] [facility] Start: 11-03-2023 End: 11-03-2023 ambulatory WADE ANDERSON [facility] Start: 10-21-2023 End: 10-22-2023 ambulatory CAITLIN Mcknight [facility] Start: 10-13-2023 End: 10-13-2023 [facility] Start: 10-06-2023 End: 10-07-2023 [facility] Start: 09-29-2023 End: 09-29-2023 ambulatory Ramona Jimenez Other [employer] Other Start: 09-29-2023 Office outpatient vi sit 25 minutes Ramona Jimenez [facility] [place] Start: 09-16-2023 End: 09-17-2023 [facility] Start: 09-10-2023 End: 09-11-[address] [facility] Start: 09-04-2023 End: 09-05-[address] [facility] Start: 08-19-2023 End: 08-20-2023 [facility] Start: 08-10-2023 End: 08-11-2023 [facility] Start: 08-03-2023 End: 08-04-2023 [facility] Start: 07-30-2023 End: 07-30-2023 ambulatory [facility] Amb[facility] Start: 07-27-2023 End: 07-28-2023 [facility] Start: 07-23-2023 End: 07-24-2023 [facility] Start: 07-16-2023 End: 07-17-2023 ambulatory CAITLIN Mcknight [facility] Start: 07-09-2023 End: 07-10-2023 ambulatory CAITLIN Mcknight [facility] Start: 07-06-2023 End: 07-07-2023 ambulatory Roney VILLALTA Facility:[facility] [place] Start: 07-01-2023 End: 07-02-2023 ambulatory CAITLIN Mcknight [facility] Start: 06-24-2023 End: 06-25-2023 [facility] Start: 06-19-2023 ambulatory Shanekaalicia Diaz Facility:[id number] Start: 06-17-2023 End: 06-18-[address] [facility] Start: 06-10-2023 End: 06-11-[address] [facility] Start: 06-09-2023 ECHO, Provider[facility],[id number], Status: Pen, Time: 9:45 AM Caitlin Gemini Finch Work Phone: [facility] 250 DO Work Phone: Start: 06-09-2023 [address] Caitlin Singletary Stef Murrell acility:[id number] Start: 06-08-2023 Patient encounter procedure Caitlin Finch Work Phone: [facility] 250 DO Work Phone: Start: 06-08-2023 ambulatory Shaneka Diaz Facility:[id number] Start: 06-03-2023 End: 06-04-2023 [facility] Start: 05-27-2023 End: 05-28-2023 [facility] Start: 05-21-2023 End: 05-22-2023 [facility] Start: 05-15-2023 Chart Update Caitlin Gemini emeks [facility] Work Phone: Start: 05-15-2023 End: 05-16-2023 ambulatory CAITLIN Mcknight [facility] Start: 05-13-2023 ambulatory Mourhaf Traboulssi Faci lity:[id number] Start: 05-13-2023 End: 05-13-2023 ambulatory Mourhaf Traboulssi Facility:[facility] Start: 05-08-2023 End: 05-09-[address] [facility] Start: 05-01-2023 End: 05-01-2023 Emergency department patient visit [facility] Start: 05-01-2023 End: 05-01-2023 Emergency department patient visit [facility] DO Work Phone: [facility] ED Comment on above: Poison loli (Primary Dx) Start: 05-01-2023 End: 05-01-[address] [facility] Start: 04-23-2023 Patient encounter procedure [facility]aitlin Singletary [facility] Work Phone: Start: 04-23-2023 ambulatory Shaneka Joe Facility:[id number] Start: 04-20-2023 End: 04-21-2023 [facility] Start: 02-18-2023 ambulatory Shaneka Diaz Facility:[facility] Start: 02-18-2023 End: 02-19-2023 [facility] Start: 02-13-2023 End: 02-14-[address] [facility] Start: 02-09-2023 End: 02-09-2023 ambulatory DARLENE FINCH Facility: Start: 02-04-2023 End: 02-05-2023 ambulatory CA[address] [facility] Start: 01-30-2023 End: 01-31-2023 ambulatory CAITLIN Mcknight [facility] Start: 01-23-2023 End: 01-24-2023 ambulatory CAITLIN Mcknight [facility] Start: 01-16-2023 End: 01-17-2023 ambulatory CAITLIN Mcknight [facility] Start: 01-09-2023 End: 01-10-2023 ambulatory CAITLIN Mcknight [facility] Start: 01-01-2023 End: 01-02-2023 ambulatory FRANK DIAZ [facility] Start: 01-01-2023 End: 01-01-2023 ambulatory FRANK DIAZ [facility] Start: 01-01-2023 End: 01-01-2023 Subsequent hospital visit by physician Caitlin Finch Work Phone: [facility] Comment on above: Dysuria; Pelvic pain Start: 01-01-2023 End: 01-01-2023 Subsequent hospital visit by physician Caitlin Finch Work Phone: [facility] Comment on above: Hot flashes Start: 12-30-2022 End: 12-31-2022 [facility] Start: 12-24-2022 End: 12-25-2022 ambulatory CAITLIN Mcknight [facility] Start: 12-22-2022 End: 12-23-2022 ambulatory Roney VILLALTA Facility:[facility] [place] Start: 12-22-2022 End: 12-22-2022 Patient encounter procedure Roney VILLALTA [facility] Start: 12-17-2022 End: 12-18-2022 ambulatory CA[address] J. [facility] Start: 12-12-2022 End: 12-13-2022 ambulatory CAITLIN J. AICHHOLZ [facility] Start: 12-10-2022 End: 12-11-2022 ambulatory CAITLINJulio PRABHAKARMINERVA [facility] Start: 09-03-2022 End: 09-04-[address] RONEY VILLALTA . Facility:H1 Start: 09-01-2022 End: 09-02-2022 ambulatory CAITLIN PRABHAKARLeanneMINERVA Facility:[facility] [place] Start: 09-01-2022 End: 09-01-2022 Patient encounter procedure Roney VILLALTA [facility] Start: 07-31-2022 ambulatory Roney VILLALTA Facility :[facility] [place] Start: 07-30-2022 End: 07-31-2022 ambulatory DARLENE FINCH Facility:[facility]1 Start: 07-18-2022 End: 07-18-2022 ambulatory Jaelyn Bright Other [employer] Other Start: 07-18-2022 Office outpatient vi sit 15 minutes Jaelyn Bright [facility] Start: 07-06-2022 End: 07-06-[address] ALANNAH SPEARS . Facility:H1 Start: 07-04-2022 ambulatory DARLENE FINCH Facil ity:H1 Start: 07-04-2022 End: 07-04-[address] CHIDI MORALES Facility:[facility]1 Start: 07-02-2022 End: 07-03-2022 ambulatory DARLENE FINCH Facility:[facility]1 Start: 06-18-2022 End: 06-18-2022 Subsequent hospital visit by physician Caitlin Finch Work Phone: [facility] Laboratory Comment on above: Postcoital bleeding Start: 01-01-2022 End: 01-01-2022 Patient encounter procedure DO Fernando Ragsdale Work Phone: [facility] [address] Start: 12-18-2020 End: 12-18-2020 Subsequent hospital visit by physician Caitlin Finch [facility] Laboratory Comment on above: Fatigue, unspecified type Start: 11-05-2020 End: 11-09-2020 Subsequent hospital visit by physician [facility] Covid19 Pat Screening Schedule [facility] PRE ADMIT Comment on above: Preoperative testing Start: 10-05-2020 End: 10-07-2020 Subsequent hospital visit by physician [facility] Ultrasound Room [facility] Ultrasound Comment on above: Abnormal mammogram Start: 08-31-2020 End: 09-02-2020 Subsequent hospital visit by physician [facility] Mammography [facility] Laboratory Comment on above: Hot flashes Screening mammogram, encounter for Start: 07-12-2020 End: 07-14-2020 Subsequent hospital visit by physician [facility] Ultrasound Room [facility] Ultrasound Comment on above: History of menorrhag ia Start: 07-05-2020 End: 07-05-2020 Subsequent hospital visit by physician [facility] Laboratory Comment on above: Screening for cervic al cancer; History of menorrhagia Start: 06-21-2018 Adult health examination Ramona Jimenez Other [employer] Other Medical Equipment Procedure Code Equipment Code Equipment Origin al Text Equipment Identifier Dates fluorescein ophthalmic strip 1 mg [id number] Start: 05-01-2023 End: 05-01-2023 Goals Date Patient Goal Desired Activity /State Personal health goal Comment on above: Formatting of this n ote might be different from the original. Evaluation of progress towards goal: Safe dc transition from hospital to home with family support. Immunizations Immunization Date Immunization Notes Care Provider [employer] 09-05-2015 tetanus toxoid, redu gil diphtheria toxoid, and acellular pertussis vaccine, adsorbed Jaelyn Kaila Other [facility] 07-23-2009 influenza, whole Roney YEMI ERS [facility] 07-23-2009 influenza virus vaccine, unspecified formulation Sarika Rowell APRN-[facility] Work Phone: [employer] Medications Current Medications Medication Drug Class(es) Dates Sig (Normalized) Sig (Original) Tylenol (2 sources) Start: 09-01-2022 Tylenol Oral, Refills(s) 0 Start Date: 09/01/22 Status: Ordered acetaminophen 325 mg / butalbital 50 mg / caffeine 40 mg oral tablet (1 source) Barbiturate, Central Nervous System Stimulant, Methylxanthine Start: 01-09-2022 take 1 tablet by mouth every six hours as needed for headache butalbital-acetam inophen-caff (FIORICET, ESGIC) 50-325-40 mg per tablet Take 1 tablet by mouth every 6 (six) hours as needed for headaches or migraine. 12 tablet 0 01/09/2022 Active [id number] 200 actuat albuterol 0.09 mg/actuat metered dose inhaler (2 sources) beta2-Adrenergic Agonist Start: 10-13-2023 take 2 puff(s) by inhalation every six hours for wheezing albuterol HFA 90 mcg/act inhaler Indications: Chronic obstructive pulmonary disease, unspecified COPD type (CMS/HCC) Inhale 2 puffs every 6 (six) hours if needed for wheezing 18 g 1 10/13/2023 Active Start: 07-14-2022 take 2 puff(s) by in halation every four to six hours as needed for wheezing Ventolin HFA 90mcg/actuat Ventolin HFA 90mcg/actuat, 2 (two) Puff every 4-6 hours as needed for shortness of breath or wheezing # 1, 07/14/2022, No Refill. Active inhalation every 4-6 hours as needed for shortness of breath or wheezing for 21 *Pick strength-form from [employer] for eRX* 17 Jun, 2022 Active azithromycin 250 mg oral tablet (1 source) Macrolide Antimicrobial Azithromycin 250 MG as directed Orally Active buPROPion (5 sources) Aminoketone buPROPion HCl (WELLBUTRIN XL PO) Take by mouth 0 Active clindamycin 20 mg/ml vaginal cream (4 sources) Lincosamide Antibacterial Start: 06-23-20 clindamycin (CLEOCIN) 2 % vaginal cream Place vaginally nightly. For 5 nights 40 g 0 06/23/2022 Active clobetasol propionate 0.0005 mg/mg topical ointment (4 sources) Corticosteroid Start: 08-14-20 clobetasol (TEMOVATE) 0.05 % ointment Indications: Acute vulvitis Apply topically 2 times daily. 30 g 1 08/14/2022 Active clonazePAM 1 mg oral tablet (20 sources) Benzodiazepine Start: 12-04-19 take 1 tablet by mouth twice daily as needed for anxiety clonazePAM (KlonoPIN) 1 mg tablet Indications: ELIZABETH (generalized anxiety disorder) Take 1 tablet (1 mg total) by mouth 2 (two) times a day as needed for anxiety. 55 tablet 0 12/04/2023 Active Start: 04-21-2023 take 1 tablet by loan th twice daily as needed for anxiety clonazePAM (KlonoPIN) 1 MG tablet Take 1 mg by mouth 2 (two) times a day as needed for anxiety or seizures. 0 04/21/2023 Active Start: 09-24-2022 KlonoPIN 0.5MG KlonoPIN( 0.5MG Oral two times daily ) Active -Hx Entry Oral two times daily for 0 *Pick strength-form from [employer] for eRX* Aug, Active Start: 05-05-2017 take 1 tablet by loan three times daily as needed clonazePAM (KLONOPIN) 1 MG tablet Take 1 tablet by mouth 3 times daily as needed. 0 05/05/2017 Active take 1 tablet by loan every twelve hours as needed clonazePAM 1 MG Oral Tablet TAKE 1 TABLET EVERY 12 HOURS NEEDED. Quantity: 0 Refills: 0 Ordered: 23-Apr-2023 DO Active dextromethorphan hydrobromide 1.5 mg/ml / pyrilamine maleate 1.5 mg/ml oral solution (1 source) Uncompetitive Q-dfsfxq-Y-aspartate Receptor Antagonist, Sigma-1 Agonist Start: 09-29-2023 take 10 mL by mouth every eight hours Freedom DM 7.5-7.5 MG/5ML 10 mL Orally every 8 hours for 5 days Sep, Active dicyclomine hydrochloride 20 mg oral tablet (1 source) Anticholinergic Start: 04-06-2023 dicyclomine (BENTYL) 20 MG tablet Take by mouth 0 04/06/2023 Active Erenumab-aooe (AIMOVIG SC) (6 sources) Erenumab-aooe (AIMOVIG SC) Inject into the skin 0 Active esketamine (6 sources) esketamine (SPRAVATO) 84 mg (28 mg x 3) nasal spray Administer 42 mg into each nostril every 14 (fourteen) days. 0 Active esketamine (SPRA VATO) 28 MG/DEVICE SOPK nasal solution 3 sprays by Nasal route every 14 days 0 Active esketamine (Spra vato) 2 sprays/28 mg per device solution therapy Administer into each nostril 1 (one) time. 0 Active Ethinyl Estradiol / Levonorgestrel (14 sources) Progestin, Estrogen, Progestin-containing Intrauterine Device Start: 01-25-2020 take 1 tablet by mouth once daily Levonorgest-Eth Estrad 91-Day 0.15-0.03 &0.01 MG TABS Indications: Women's annual routine gynecological examination Take 1 tablet by mouth daily 91 tablet 3 01/25/2020 Active Start: 11-08-2019 take 1 tablet by loan once daily Levonorgest-Eth Estrad 91-Day 0.15-0.03 &0.01 MG TABS Take 1 tablet by mouth daily 91 tablet 0 11/08/2019 Active FLUoxetine 40 mg oral capsule (20 sources) Serotonin Reuptake Inhibitor Start: 09-01-2023 take 2 capsules by mouth in the morning FLUoxetine (PROzac) 40 mg capsule Indications: Generalized anxiety disorder , Major depressive disorder, recurrent episode, moderate ([facility]) Take 2 capsules (80 mg total) by mouth in the morning. 180 capsule 3 09/01/2023 Active Start: 05-11-2017 take 1 capsule by [facility] once daily FLUoxetine (PROZAC) 40 MG capsule Take 1 capsule by mouth daily 0 05/11/2017 Active 30 actuat fluticasone furoate 0.1 mg/actuat / umeclidinium 0.0625 mg/actuat / vilanterol 0.025 mg/actuat dry powder inhaler (2 sources) Anticholinergic, Corticosteroid, beta2-Adrenergic Agonist Start: 10-13-2023 End: 11-12-2023 take 1 puff(s) by inhalation once daily wjcondvezdm-tdrwwlheq-fnaxox (TRELEGY ELLIPTA) 100-62.5-25 MCG/ACT AEPB inhaler Inhale 1 puff into the lungs daily 0 10/13/2023 11/12/2023 Active Start: 10-13-2023 take 1 puff(s) by mo [facility] in the morning Hhvdplwszoj-Jvnrriymg-Utyzzr (Trelegy Ellipta) 100-62.5-25 MCG/ACT aerosol powder Indications: Chronic Obstructive Pulmonary Disease , Pulmonary Emphysema Inhale 1 puff in the morning. Rinse mouth after use. 1 each 3 10/13/2023 Active gabapentin 800 mg oral tablet (11 sources) Anti-epileptic Agent Start: 07-22-2022 take 1 tablet by mouth every eight hours gabapentin (NEURONTIN) 800 MG tablet TAKE 1 TABLET BY MOUTH EVERY 8 HOURS 0 07/22/2022 Active Start: 06-06-2021 take 1 mg by mouth t hree times daily gabapentin 300 mg Cap mg cap(s), Oral, TID, Refills(s) 0 Start Date: 06/06/21 Status: Ordered take 1 tablet by [facility] three times daily Gabapentin 800 MG Oral Tablet TAKE 1 TABLET 3 TIMES DAILY. Quantity: 0 Refills: 0 Ordered: 23-Apr-2023 DO Active Ibuprofen (9 sources) Nonsteroidal Anti-inflammatory Drug Start: 09-01-2022 ibuprofen Refills (s) 0 Start Date: 09/01/22 Status: Ordered take 1 tablet by [facility] every six hours as needed for pain ibuprofen (ADVIL;MOTRIN) 800 MG tablet T linda 1 tablet by mouth every 6 hours as needed for Pain 0 Active take 1 tablet by [facility] every six hours as needed for pain ibuprofen (ADVIL;MOTRIN) 200 MG tablet T linda 200 mg by mouth every 6 hours as needed for Pain 0 Active L-NORGEST/E.ESTRADIOL-E.ESTR AD (SEASONIQUE ORAL) (1 source) L-NORGEST/E.ESTR ADIOL-E.ESTRAD (SEASONIQUE ORAL) Take by mouth. 0 Active levETIRAcetam 500 mg oral ta blet (14 sources) Star t: 02-26 take 1 tablet by mouth every twelve hours levETIRAcetam (Keppra) 500 MG tablet Take 500 mg by mouth every 12 (twelve) hours. 0 03/11/2023 Active Start: 09-24-2022 Keppra keppra( 500mg at bedtime ) Active -Hx Entry at bedtime for 0 *Pick strength-form from [facility] for eRX* Aug, Active Start: 09-01-2022 take 1 mg by mouth twice daily Keppra 250 mg Tab mg tab(s), Oral, BID, Refills(s) 0 Start Date: 09/01/22 Status: Ordered Start: 01-09-2022 take 1 tablet by loan th every twelve hours levETIRAcetam (KEPPRA) 500 MG tablet TAKE 1 TABLET BY MOUTH EVERY 12 HOURS 0 03/14/2022 Active take 1 tablet by loan th twice daily Keppra 500 MG Oral Tablet TAKE 1 TABLET TWICE DAILY. Quantity: 0 Refills: 0 Ordered: 23-Apr-2023 DO Active modafinil 200 mg oral tablet (10 sources) Sympathomimetic-like Agent Start: 09-10-2023 take 1 tablet by mouth once daily in the morning modafiniL (PROVIGIL) 200 mg tablet Indications: Excessive daytime sleepiness TAKE 1 TABLET BY MOUTH EVERY MORNING AND 1 TABLET IN THE AFTERNOON 180 tablet 0 09/10/2023 Active Start: 07-13-2022 take 1 tablet by loan th in the morning modafinil (Provigil) 200 MG tablet Take 200 mg by mouth in the morning. 0 06/09/2023 Active modfinil 200mg bid (1 source) Start: 09-24-2022 modfinil 200mg bid modfinil 200mg bid( ) Active -Hx Entry for 0 *Reorder from [employer] for eRx and Interaction Alerts* Aug, Active naratriptan (1 source) Serotonin-1b and Serotonin-1d Receptor Agonist Start: 09-24-2022 naratriptan naratriptan( 2.5mg as needed for breakthrough migraines ) Active -Hx Entry as needed for breakthrough migraines for 0 JOSE *Reorder from [employer] for eRx and Interaction Alerts* Aug, Active nystatin 437244 unt/ml oral suspension (2 sources) Polyene Antifungal Start: 07-18-2022 take 4 mL by mouth three times daily Nystatin 972317 UNIT/ML 4 ml Mouth/Throat tid for 7 days Jun, Active Start: 07-18-2022 take 4 mL by mouth t hree times daily Nystatin 572233 UNIT/ML 4 ml Mouth/Throat tid for 7 days Jun, Active Phentermine (5 sources) Sympathomimetic Amine Anorectic Start: 12-22-2022 take 1 mg by mouth once daily Adipex-P mg, Oral, Daily, Refills(s) 0 Start Date: 12/22/22 Status: Ordered Start: 12-01-2022 take 1 tablet by [facility] once daily phentermine (ADIPEX-P) 37.5 MG tablet Take 1 tablet by mouth daily. 0 12/01/2022 Active potassium citrate 10 meq extended release oral tablet (8 sources) Start: 06-17-2023 take 1 tablet by mouth in the morning potassium citrate CR (Urocit-K-10) 10 mEq ER tablet Take 20 mEq by mouth in the morning and 20 mEq before bedtime. 0 06/17/2023 Active Start: 05-12-2023 potassium citr ate (UROCIT-K) 5 MEQ (540 MG) extended release tablet Daily 0 05/12/2023 Active take 2 tablets by [facility] twice daily potassium citrate (UROCIT-K) 10 mEq (1,080 mg) CR tablet TAKE 2 TABLETS BY MOUTH TWICE DAILY 0 Active Potassium Citrat e 99 MG CAPS Once daily Quantity: 0 Refills: 0 Ordered: 23-Apr-2023 DO Active predniSONE 20 mg oral tablet (2 sources) Start: 09-29-2023 take 1 tablet by mouth every twelve hours prednisone 20 MG 1 tablet Orally BID for 5 Sep, Active Start: 05-01-2023 End: 05-21-2023 take 4 tablets [...] days. 38 tablet 0 05/01/2023 05/21/2023 Active pregabalin 150 mg oral capsule (3 sources) Start: 10-13-2023 take 1 capsule by mouth in the morning pregabalin (Lyrica) 150 MG capsule Indications: Fibromyalgia Take 1 capsule (150 mg) by mouth in the morning and 1 capsule (150 mg) before bedtime. 60 capsule 2 10/13/2023 Active Start: 08-13-2023 take 1 capsule by [facility] twice daily pregabalin (LYRICA) 75 mg capsule TAKE 1 CAPSULE BY MOUTH TWICE DAILY 0 08/13/2023 Active Spravato 28 mg (56 mg dose) nasal spray (1 source) Start: 12-22-2022 Spravato 28 mg (56 mg dose) nasal spray mg, Nasal, qWeek, Refills(s) 0 Start Date: 12/22/22 Status: Ordered SUMAtriptan 100 mg oral tablet (20 sources) Serotonin-1b and Serotonin-1d Receptor Agonist Start: 09-25-2022 take 1 tablet by mouth every hour, then take 2 tablets by mouth every twenty-four hours Imitrex 100mg Imitrex 100mg, 1 (one) Tablet as directed # 9, 09/25/2022, Ref. x2. Active oral as directed for 30 may take 1 pill at onset of headache, may repeat in 1 hour if needed. no more than 2 pills in 24 hours *Pick strength-form from [employer] for eRX* Aug, Active Start: 04-26-2017 SUMAtriptan (I MITREX) 100 mg tablet Start: 04-26-2017 SUMAtriptan (I mitrex) 100 MG tablet Indications: Chronic migraine without aura without status migrainosus, not intractable (CMS/HCC) Take 1 tablet (100 mg) by mouth 1 (one) time if needed for migraine Take 100 mg by mouth 1 (one) time if needed for migraine, may repeat again in 2 hours if needed. No more than 2 pills in 24 hours, no more than twice 9 tablet 2 10/13/2023 Active take 1 tablet by loan th every two hours Imitrex 100 MG Oral Tablet TAKE 1 TABLET AT ONSET OF MIGRAINE HEADACHE. MAY REPEAT IN 2 HOURS IF NEEDED. Quantity: 0 Refills: 0 Ordered: 23-Apr-2023 DO Active terbinafine 250 mg oral tablet (4 sources) Allylamine Antifungal Start: 12-02-2022 take 1 tablet by mouth once daily terbinafine (LAMISIL) 250 MG tablet Take 1 tablet by mouth daily 0 12/02/2022 Active tiZANidine 4 mg oral tablet (14 sources) Central alpha-2 Adrenergic Agonist Start: 04-05-2021 tiZANidine (Zanaflex ) 4 MG tablet Indications: Musculoskeletal Pain Take 1 tablet (4 mg) by mouth as needed at bedtime for muscle spasms 30 tablet 3 10/13/2023 Active take 1 tablet by loan once daily at bedtime tiZANidine (ZANAFLEX) 4 mg tablet Take 4 mg by mouth once daily at bedtime. 0 Active Completed/Discontinued Medications Medication Drug Class(es) Dates Sig (Normalized) Sig (Original) K-Effervescent 25 mEq oral tablet, effervescent (1 source) Start: 12-22-2022 End: 12-17-2023 take 1 tablet by mouth twice daily K-Effervescent 25 mEq oral tablet, effervescent 25 mEq = 1 tab(s), Oral, BID, X 30 day(s), # 60 tab(s), Refills(s) 11, Pharmacy: [id number], 165, cm, 12/22/22 13:39:00 EDT, Height/Length Dosing, 75, kg, 12/22/22 13:39:00 EDT, Weight Dosing Start Date: 12/22/22 Stop Date: 12/17/23 Status: Ordered Ketorolac (4 sources) Nonsteroidal Anti-inflammatory Drug, Cyclooxygenase Inhibitor Start: 11-16-2014 Toradol per 15 mg Oct, 60 mg Start: 07-15-2012 Toradol per 15 mg Jun, 60 mg Spravato (56 MG Dose) SOPK (4 sources) Spravato (56 MG Dose) SOPK as directed Quantity: 0 Refills: 0 Ordered: 23-Apr-2023 DO Active Payers Date Payer Category Payer Medicare [id number] 2023 Self-pay [id number] 2023 Medicaid [employer] [place] [id number] 2023-Present [address] [place] [address] [id number]. [id number] 2023 Private Health Insurance [id number] 1.2.840.845361.1.13.239.2. 7.3.248953.315 2023 Private Health Insurance 1.2 .840.705395.1.13.693.2. 7.3.095097.315 2022 Private Health Insurance [id number] 1.2.840.764059.1.13.239.2. 7.3.492708.315 1978 Unknown [id number] 2.16.840.1.651887.3.579.2. 593 1978 Unknown [id number] 2.16.840.1.775294.3.579.2. 593 1978 Unknown [id number] 2.16.840.1.938301.3.579.2. 593 1978 Unknown [id number] 2.16.840.1.253395.3.579.2. 593 1978 Unknown [id number] 2.16.840.1.932566.3.579.2. 593 1978 Unknown [id number] 2.16.840.1.192203.3.579.2. 593 1978 Unknown [id number] 2.16.840.1.620484.3.579.2. 593 1978 Unknown [id number] 2.16.840.1.602929.3.579.2. 356 1978 Unknown [id number] 2.16.840.1.755169.3.579.2. 356 1978 Unknown [id number] 2.16.840.1.628857.3.579.2. 356 1978 Unknown [id number] 2.16.840.1.161680.3.579.2. 356 1978 Unknown [id number] 2.16.840.1.488952.3.579.2. 1068 1978 Unknown [id number] 2.16.840.1.872518.3.579.2. 1068 1978 Unknown [id number] 2.16.840.1.532037.3.579.2. 727 1978 Unknown [id number] 2.16.840.1.971439.3.579.2. 727 1978 Unknown [id number] 2.16.840.1.983968.3.579.2. 727 1978 Unknown [id number] 2.16.840.1.188478.3.579.2. 727 1978 Unknown [id number] 2.16.840.1.386781.3.579.2. 1244 1978 Unknown [id number] 2.16.840.1.998271.3.579.2. 176 1978 Unknown [id number] 2.16.840.1.931601.3.579.2. 176 1978 Unknown [id number] 2.16840.1.242111.3.579.2. 176 1978 Unknown [id number] 2.16.840.1.128258.3.579.2. 176 1978 Unknown [id number] 2.16.840.1.667133.3.579.2. 176 1978 Unknown [id number] 2.16.840.1.755613.3.579.2. 176 1978 Unknown [id number] 2.16.840.1.246667.3.579.2. 176 1978 Unknown [id number] 2.16.840.1.252532.3.579.2. 176 1978 Unknown [id number] 2.16.840.1.225187.3.579.2. 176 1978 Unknown [id number] 2.16.840.1.781074.3.579.2. 176 1978 Unknown [id number] 2.16.840.1.460385.3.579.2. 176 1978 Unknown [id number] 2.16.840.1.033338.3.579.2. 176 1978 Unknown [id number] 2.16.840.1.653553.3.579.2. 176 1978 Unknown [id number] 2.16.840.1.513918.3.579.2. 176 1978 Unknown [id number] 2.16.840.1.939537.3.579.2. 176 1978 Unknown [id number] 2.16.840.1.613453.3.579.2. 176 1978 Unknown [id number] 2.16.840.1.168538.3.579.2. 176 1978 Unknown [id number] 2.16.840.1.742392.3.579.2. 176 1978 Unknown [id number] 2.16.840.1.797895.3.579.2. 176 1978 Unknown [id number] 2.16.840.1.969410.3.579.2. 176 1978 Unknown [id number] 2.16.840.1.145809.3.579.2. 176 1978 Unknown [id number] 2.16.840.1.526688.3.579.2. 176 1978 Unknown [id number] 2.16.840.1.182552.3.579.2. 176 1978 Unknown [id number] 2.16.840.1.512902.3.579.2. 176 1978 Unknown [id number] 2.16.840.1.451509.3.579.2. 176 1978 Unknown [id number] 2.16.840.1.389510.3.579.2. 176 1978 Unknown [id number] 2.16.840.1.787312.3.579.2. 176 1978 Unknown [id number] 2.16.840.1.236915.3.579.2. 176 1978 Unknown [id number] 2.16.840.1.091162.3.579.2. 176 1978 Unknown [id number] 2.16.840.1.299885.3.579.2. 176 1978 Unknown [id number] 2.16.840.1.845865.3.579.2. 176 1978 Unknown [id number] 2.16.840.1.312071.3.579.2. 176 1978 Unknown [id number] 2.16.840.1.256887.3.579.2. 176 1978 Unknown [id number] 2.16.840.1.963474.3.579.2. 176 1978 Unknown [id number] 2.16.840.1.452516.3.579.2. 176 1978 Unknown [id number] 2.16.840.1.589061.3.579.2. 176 1978 Unknown [id number] 2.16.840.1.421992.3.579.2. 176 1978 Unknown [id number] 2.16.840.1.295187.3.579.2. 176 1978 Unknown [id number] 2.16.840.1.098913.3.579.2. 1978 Unknown [id number] 2.16.840.1.115028.3.579.2. 1978 Unknown [id number] 2.16.840.1.611722.3.579.2. 173 1978 Unknown [id number] 2.16.840.1.768548.3.579.2. 1978 Unknown [id number] 2.16.840.1.983820.3.579.2. 6 1978 Unknown [id number] 2.16.840.1.463834.3.579.2. 1285 1978 Unknown [id number] 2.16.840.1.895978.3.579.2. 6 1978 Unknown [id number] 2.16.840.1.197254.3.579.2. 1258 1978 Unknown [id number] 2.16.840.1.768691.3.579.2. 1258 1978 Unknown [id number] 2.16.840.1.481429.3.579.2. 1258 1978 Unknown [id number] 2.16.840.1.769113.3.579.2. 1258 1978 Unknown [id number] 2.16.840.1.135234.3.579.2. 1258 1978 Unknown [id number] 2.16.840.1.546459.3.579.2. 1258 1978 Unknown [id number] 2.16.840.1.831021.3.579.2. 1258 1978 Unknown [id number] 2.16.840.1.541320.3.579.2. 9 1959 Unknown [id number] 1.2.840.827657.1.13.239.2. 7.3.869589.315 1959 Unknown [id number] 1.2.840.292754.1.13.239.2. 7.3.316920.315 Unknown Unknown [id number] 2.16.840.1.682082.3.579.2. 531 Plan of Treatment Date Care Activity Detail Author Start: 06-26-2031 Screening for malign ant neoplasm of colon [facility] Start: 09-05-2025 DTaP,Tdap and Td Vaccines (2 - Td or Tdap) DTaP,Tdap and Td Vaccines (2 - Td or Tdap) [facility] Start: 09-05-2025 DTaP/Tdap/Td vaccine (2 - Td or Tdap) DTaP/Tdap/Td vaccine (2 - Td or Tdap) [facility] Start: 07-05-2025 Screening for malign ant neoplasm of cervix Cervical cancer screen [facility], [place] Start: 11-15-2024 End: 11-15-2024 Patient encounter procedure 11/15/2024 3:45 PM EST Office Visit [facility] OBST[facility] & GYNECOLOGY [facility] [address] [place], [place] [id number] Frank Diaz, [employer] - CN [address] [place], [place] [id number] PAP [facility]ST[facility] & [facility] Comment on above: PAP Start: 01-27-2024 Screening for malign ant neoplasm of breast Mammogram [facility] Comment on above: Postponed from 03/06 (Other Medical Reasons) Start: 12-23-2023 Tobacco Screening Tobacco Screening [facility] Start: 12-17-2023 End: 12-17-2023 Patient encounter procedure 12/17/2023 3:20 PM EDT Office Visit [facility] [address] [place] [address] Caitlin Finch, MARY [address] [place] [address] [facility] Start: 12-10-2023 End: 12-10-2023 Patient encounter procedure 12/10/2023 4:30 PM EDT Appointment [facility] Mammography [address] [place] [address] Frank Diaz, [employer] - CNM [address] [place] [address] katina* arlin Prajapati from doc ofc [facility] Mammography Comment on above: epic* arlin Prajapati from doc ofc Start: 10-06-2023 Screening for malign ant neoplasm of cervix Cervical cancer screen [facility], [place] Start: 07-30-2023 FUV, Provider: Shaneka Diaz, Status: Pen, Time: 2:30 PM FUV, Provider: Shaneka Diaz, Status: Pen, Time: 2:30 PM -[facility] [address] DO Work Phone: Start: 06-23-2023 End: 06-23-2023 Patient encounter procedure 06/23/2023 Office Visit Obstetrics and Gynecology Frank Diaz, [employer] - CNM [address] [place] [address] [facility]STET[facility] & GYNECOLOGY [facility] Start: 06-15-2023 FUV, Provider: Shaneka Diaz, Status: Pen, Time: 2:00 PM FUV, Provider: Shaneka Diaz, Status: Pen, Time: 2:00 PM [facility] [address] DO Work Phone: Start: 06-08-2023 HOLTER 48, Provider: WILLARD HU LOCK TECHNICIAN 1,[id number], Status: Pen, Time: 2:15 PM HOLTER 48, Provider: WILLARD HU LOCK TECHNICIAN 1,[id number], Status: Pen, Time: 2:15 PM [facility] [address] DO Work Phone: Start: 06-08-2023 ECHO, Provider: MADHU BAEZI ULTRASOUND 01,[id number], Status: Pen, Time: 1:30 PM ECHO, Provider: EDMUND BAEZI ULTRASOUND 01,[id number], Status: Pen, Time: 1:30 PM [facility] 250 DO Work Phone: Start: 05-29-2023 Influenza vaccination Influenza Vacc ine [facility] Start: 05-13-2023 SURGNONUH, Provider: Anya Watkins, Status: Pen, Time: 10:00 AM SURGNONUH, Provider: Anya Watkins, Status: Pen, Time: 10:00 AM [facility] 250 DO Work Phone: Start: 04-28-2023 Influenza vaccination B ON [facility] Start: 2023 Screening for malign ant neoplasm of colon [facility] Start: 01-11-2023 Adult BMI Screening Adult BMI Screen [facility] Start: 07-10-2022 End: 07-10-2022 Patient encounter procedure 07/10/2022 Appointment Radiology [facility] Start: 05-29-2022 Influenza vaccination Flu vaccine (# 1) [facility] Start: 10-06-2021 Screening for malign ant neoplasm of cervix Cervical cancer screen [facility] [place], [place] Start: 07-05-2021 Depression Screen Depression Screen [facility] Start: 01-02-2021 End: 01-02-2021 Office Visit 01/02/2021 Office Visit Obstetrics and Gynecology Frank Diaz, [employer] - CN [address] [place] [address] [place] [address] [phone] [facility]YNECOLOGY Start: 01-01-2021 End: 01-01-2021 Office Visit 01/01/2021 Office Visit Obstetrics and Gynecology Lance Keturah Plasencia, DO [address] [place] [address] [facility]YNECOLOG[facility] Start: 12-18-2020 End: 12-18-2020 Office Visit 12/18/2020 Office Visit Obstetrics and Gynecology Lance Keturah Plasencia DO [address] [place] [address] [facility]YNECOLOG[facility] Start: 11-27-2020 End: 11-27-2020 Office Visit 11/27/2020 Office Visit Obstetrics and Gynecology [facility] Keturah Plasencia DO [address] [place] [address] [facility]YNECOLOG[facility] Start: 11-12-2020 End: 11-12-2020 Hospital Encounter [facility] Comment on above: HYSTERECTOMY VAGINAL LAPAROSCOPIC ROBOTIC ASSISTED-POSSIBLE BSO, POSSIBLE LAPAROSCOPIC COLPOPEXY Start: 11-12-2020 End: 11-12-2020 Hospital Encounter [facility] Comment on above: HYSTERECTOMY VAGINAL LAPAROSCOPIC ROBOTIC ASSISTED-POSSIBLE BSO, POSSIBLE LAPAROSCOPIC COLPOPEXY Start: 10-29-2020 End: 10-29-2020 Office Visit 10/29/2020 Office Visit Obstetrics and Gynecology Keturah Can, DO [address] [place] [address] [phone] [facility] Start: 09-03-2020 End: 09-03-2020 Office Visit 09/03/2020 Office Visit Obstetrics and Gynecology Lance FordetrongKeturah Nyasia, DO [address] [place] [address] [phone] [facility] Start: 08-31-2020 End: 08-31-2020 Appointment 08/31/2020 Appointment Radiology [facility] Mammography Start: 07-12-2020 End: 07-12-2020 Appointment 07/12/2020 Appointment Radiology [facility] Ultrasound Start: 05-29-2020 Influenza vaccination Flu vaccine (# 1) [place], [place] Start: 2018 Diabetes screen Diabetes screen [place], [place] Start: 2018 Lipid panel [facility] Start: 2013 Diabetes screen Diabetes screen [facility] Start: 2008 Screening for malign ant neoplasm of cervix HPV/Cotest [facility] Start: 1999 Screening for malign ant neoplasm of cervix Pap Smear [facility] Start: 1997 DTaP/Tdap/Td vaccine (1 - Tdap) DTaP/Tdap/Td vaccine (1 - Tdap) [facility] Start: 1996 Hepatitis C screening Hepatitis C sc reen [facility] Start: 1994 COVID-19 Vaccine (1) COVID-19 Vaccin e (1) [facility] Work Phone: Start: 1993 HIV screening HIV screen [facility] Start: 1990 Depression Monitoring Depression Mon itoring [facility] Start: 1990 Depression Screening Depression [facility] Start: 1978 COVID-19 Vaccine (#1) COVID-19 Vacci ne (#1) [facility] Start: 1978 Hepatitis B vaccine (1 of 3 - 3-dose series) Hepatitis B vaccine (1 of 3 - 3-dose series) [facility] Start: 1978 Hepatitis C screening Hepatitis C sc reen [place], [place] Start: 1978 Screening for malign ant neoplasm of colon [facility] End: 07-05-2020 C.trachomatis N.gonorrhoeae DNA, Thin Prep C.trachomatis N.gonorrhoeae DNA, Thin Prep Microbiology Routine History of menorrhagia 1 Occurrences starting 07/05/2020 until 07/05/2020 [place], [place] Comment on above: 1 Occurrences starti ng 07/05/2020 until 07/05/2020 C.trachomatis N.gonorrhoeae DNA, Thin Prep C.trachomatis N.gonorrhoeae DNA, Thin Prep Microbiology Routine History of menorrhagia 07/05/2020 5:13 PM EDT [place], [place] End: 06-18-2022 Culture, Genital [facility] Work Phone: Comment on above: 1 Occurrences starti ng 06/18/2022 until 06/18/2022 End: 11-11-2023 Culture, Genital [facility] Comment on above: 1 Occurrences starti ng 11/11/2023 until 11/11/2023 End: 01-01-2023 Culture, Urine [facility] Work Phone: Comment on above: 1 Occurrences starti ng 01/01/2023 until 01/01/2023 End: 07-05-2020 Cytopathology procedure, preparation of smear, genital source [facility] Lab Routine Screening for cervical cancer 1 Occurrences starting 07/05/2020 until 07/05/2020 [place], [place] Comment on above: 1 Occurrences starti ng 07/05/2020 until 07/05/2020 End: 08-31-2020 SHAYLEE ANTONIO DIGITAL SCREEN BILATERAL SHAYLEE ANTONIO DIGITAL SCREEN BILATERAL Imaging Routine Screening mammogram, encounter for 1 Occurrences starting 08/31/2020 until 08/31/2020 [place], [place] Comment on above: 1 Occurrences starti ng 08/31/2020 until 08/31/2020 SHAYLEE ANTONIO DIGITAL SCR EEN BILATERAL SHAYLEE ANTONIO DIGITAL SCREEN BILATERAL Imaging Routine Screening mammogram, encounter for 08/31/2020 5:14 PM [facility] [place] Problems Active Problems Problem Classification Problem Date Documented Da te Episodic/Chronic Acute and chronic tonsillitis (1 source) Acute tonsillitis; Translations: [Acute tonsillitis, unspecified] Episodic Acute bronchitis (1 source) Acute bronchitis due to other specified organisms Episodic Adjustment disorders (1 source) Adjustment disorder; Translations: [Adjustment disorder, unspecified] Onset: 08-26-2023 08-26-2023 Chronic Administrative/social admission (2 sources) Person consulting for explanation of examination or test findings; Translations: [Person consulting for explanation of examination or test findings] Onset: 07-30-2023 Episodic Anxiety disorders (13 sources) Mixed anxiety and depressive disorder; Translations: [Anxiety disorder, unspecified] Onset: 07-20-2017 06-06-2021 Chronic Calculus of urinary tract (14 sources) Kidney stone; Translations: [Calculus of kidney] Onset: 07-08-2022 Episodic Chronic obstructive pulmonary disease and bronchiectasis (1 source) Pulmonary emphysema; Translations: [Other emphysema] Onset: 08-26-2023 09-09-2023 Chronic Chronic obstructive pulmonary disease and bronchiectasis (1 source) Bronchitis; Translations: [Bronchitis, not specified as acute or chronic] Episodic Conditions associated with dizziness or vertigo (1 source) Dizziness and giddiness; Translations: [Dizziness and giddiness] Episodic Epilepsy; convulsions (6 sources) Other generalized epilepsy and epileptic syndromes, not intractable, without status epilepticus; Translations: [Grand mal seizure] Onset: 10-13-2023 10-13-2023 Chronic Gastritis and duodenitis (2 sources) Chronic antral gastritis 07-03-2021 Chronic Genitourinary symptoms and ill-defined conditions (1 source) Urge incontinence of urine; Translations: [Urge incontinence] Chronic Headache; including migraine (9 sources) Migraine; Translations: [Migraine, unspecified, without mention of intractable migraine without mention of status migrainosus] Onset: 09-14-2023 06-06-2021 Chronic Headache; including migraine (1 source) Headache; including migraine; Translations: [HEADACHE UNSPECIFIED] Onset: 02-11-2023 Malaise and fatigue (7 sources) Fatigue; Translations: [Weakness] Onset: 02-09-2023 06-06-2021 Episodic Menopausal disorders (2 sources) Menopausal symptom; Translations: [Menopausal and female climacteric states] Onset: 11-11-2023 11-11-2023 Chronic Mood disorders (16 sources) Severe recurrent major depression without psychotic features; Translations: [Major depressive disorder, recurrent severe without psychotic features] Onset: 07-20-2017 Resolved: 11-25-2021 11-17-2022 Chronic Mood disorders (1 source) Mood disorders; Translations: [DEPRESSION UNSPECIFIED] Onset: 02-11-2023 Mycoses (1 source) Candidal stomatitis Episodic Nausea and vomiting (1 source) Nausea with vomiting, unspecified; Translations: [NAUSEA WITH VOMITING UNSPECIFIED] Onset: 02-11-2023 Episodic Nonspecific chest pain (1 source) Chest pain; Translations: [Chest pain, unspecified] Episodic Other aftercare (1 source) Other university dean (current) drug therapy; Translations: [OTH SHOP TECH CURRENT DRUG THERAPY] Onset: 02-11-2023 Episodic Other female genital disorders (1 source) Postcoital bleeding; Translations: [Postcoital and contact bleeding] Chronic Other female genital disorders (2 sources) H/O: menorrhagia; Translations: [History of menorrhagia] Episodic Other female genital disorders (1 source) Vaginal discomfort; Translations: [Unspecified condition associated with female genital organs and menstrual cycle] 11-11-2023 Episodic Other female genital disorders (1 source) Unspecified condition associated with female genital organs and menstrual cycle; Translations: [Unspecified condition associated with female genital organs and menstrual cycle] Onset: 11-11-2023 Episodic Other gastrointestinal disorders (4 sources) Irritable bowel syndrome; Translations: [Mixed irritable bowel syndrome] Onset: 10-13-2023 07-03-2021 Chronic Other gastrointestinal disorders (2 sources) Alteration in bowel elimination 06-11-2021 Episodic Other gastrointestinal disorders (1 source) Diarrhea, unspecified; Translations: [DIARRHEA UNSPECIFIED] Onset: 02-11-2023 Episodic Other infections; including parasitic (4 sources) Personal history of other infectious and parasitic diseases; Translations: [Personal history of COVID-19] Episodic Other injuries and conditions due to external causes (1 source) History of fall; Translations: [History of falling] Episodic Other injuries and conditions due to external causes (1 source) Injury of head; Translations: [Unspecified injury of head, initial encounter] Episodic Other lower respiratory disease (6 sources) Dyspnea; Translations: [Shortness of breath] Onset: 07-30-2023 Episodic Other lower respiratory disease (1 source) Shortness of breath; Translations: [Shortness of breath] Onset: 05-13-2023 Episodic Other lower respiratory disease (2 sources) Shortness of breath; Translations: [Shortness of breath] Onset: 06-09-2023 Episodic Other lower respiratory disease (1 source) Cough; Translations: [Cough, unspecified] Episodic Other nervous system disorders (1 source) Other lesions of median nerve, left upper limb; 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, left upper limb] Chronic Other nervous system disorders (1 source) Lesion of right median nerve; 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, right upper limb] Chronic Other nervous system disorders (1 source) Nervous system and sense organ diseases; Translations: [Personal history of other diseases of the nervous system and sense organs] Episodic Other non-traumatic joint disorders (3 sources) Joint pain; Translations: [Pain in unspecified joint] 06-06-2021 Episodic Other nutritional; endocrine; and metabolic disorders (1 source) Obesity; Translations: [Obesity, unspecified] Chronic Other nutritional; endocrine; and metabolic disorders (2 sources) Unintentional weight loss 06-06-2021 Episodic Other nutritional; endocrine; and metabolic disorders (4 sources) Overweight in adulthood with body mass index of 25 or more but less than 30; Translations: [Overweight] Episodic Other nutritional; endocrine; and metabolic disorders (1 source) Abnormal weight loss; Translations: [Abnormal weight loss] Episodic Other nutritional; endocrine; and metabolic disorders (1 source) Overweight; Translations: [Overweight] Episodic Other screening for suspected conditions (not mental disorders or infectious disease) (9 sources) Mammography abnormal; Translations: [Electrocardiogram abnormal] Onset: 06-09-2023 Episodic Other skin disorders (1 source) Disorder of skin and/or subcutaneous tissue; Translations: [Disorder of the skin and subcutaneous tissue, unspecified] Episodic Other upper respiratory infections (5 sources) Acute pharyngitis, unspecified; Translations: [Sore throat symptom] Episodic Ovarian cyst (1 source) Cyst of left ovary; Translations: [Unspecified ovarian cyst, left side] Episodic Residual codes; unclassified (1 source) Other hypersomnia; Translations: [Other hypersomnia] Onset: 12-31-2023 Chronic Residual codes; unclassified (2 sources) Flushing; Translations: [Flushing] Episodic Residual codes; unclassified (1 source) Acquired absence of both cervix and uterus; Translations: [ACQUIRED ABSENCE BOTH CERVIX AND UTERUS] Onset: 02-11-2023 Episodic Residual codes; unclassified (2 sources) Other specified health status; Translations: [Health status] Onset: 08-04-2022 Episodic Residual codes; unclassified (1 source) Immunization refused ; Translations: [Immunization not carried out because of patient refusal] Episodic Residual codes; unclassified (1 source) Normal body mass index; Translations: [Body mass index (BMI) 24.0-24.9, adult] Episodic Residual codes; unclassified (1 source) Family history of ischemic heart disease; Translations: [Family history of ischemic heart disease and other diseases of the circulatory system] Episodic Screening and history of mental health and substance abuse codes (5 sources) Personal history of nicotine dependence; Translations: [Ex-smoker] Onset: 07-09-2022 Episodic Spondylosis; intervertebral disc disorders; other back problems (2 sources) Pain in thoracic spine; Translations: [Pain in thoracic spine] Episodic Syncope (7 sources) Syncope; Translations: [Syncope [...] COUGH, UNSPECIFIED; Translations: [COUGH, UNSPECIFIED] Onset: 07-08-2022 Urinary tract infections (1 source) Urinary tract infectious disease; Translations: [Urinary tract infection, site not specified] Episodic Viral infection (3 sources) COVID-19; Translations: [Disease caused by 2019-nCoV] Onset: 07-08-2022 Past or Other Problems Problem Classification Problem Date Documented Da te Episodic/Chronic Abdominal pain (7 sources) Pain in pelvis; Translations: [Pelvic and perineal pain] Onset: 07-02-2022 Episodic Allergic reactions (3 sources) Contact dermatitis due to poison loli; Translations: [Allergic contact dermatitis due to plants, except food] Onset: 05-01-2023 Episodic Epilepsy; convulsions (2 sources) Seizure; Translations: [Unspecified convulsions] Onset: 01-07-2022 08-26-2023 Episodic Fluid and electrolyte disorders (1 source) Dehydration; Translations: [DEHYDRATION] Onset: 07-09-2022 Episodic Genitourinary symptoms and ill-defined conditions (11 sources) Dysuria; Translations: [Dysuria] Onset: 07-30-2022 Episodic Headache; including migraine (1 source) Headache; Translations: [Headache] Onset: 10-13-2023 Resolved: 10-13-2023 10-13-2023 Episodic Other circulatory disease (1 source) Hypotension, unspecified; Translations: [HYPOTENSION UNSPECIFIED] Onset: 07-09-2022 Episodic Other connective tissue disease (9 sources) Fibromyalgia; Translations: [Myalgia and myositis, unspecified] Onset: 04-30-2021 06-06-2021 Episodic Other connective tissue disease (4 sources) Myalgia, unspecified site; Translations: [MYALGIA UNSPECIFIED SITE] Onset: 07-06-2022 Episodic Residual codes; unclassified (1 source) Flushing; Translations: [Flushing] Onset: 01-01-2023 Episodic Skull and face fractures (1 source) Closed fracture of nasal bones; Translations: [Fracture of nasal bones, initial encounter for closed fracture] Resolved: 01-30-2020 Episodic Sprains and strains (1 source) Strain of back muscle; Translations: [Sprain of joints and ligaments of unspecified parts of neck, initial encounter] Resolved: 01-30-2020 Episodic Suicide and intentional self-inflicted injury (1 source) Suicidal thoughts; Translations: [Suicidal ideations] Onset: 06-13-2021 06-13-2021 Episodic Superficial injury; contusion (1 source) Contusion of face, scalp and neck, excluding eye(s); Translations: [Contusion of other part of head, initial encounter] Resolved: 01-30-2020 Episodic Unclassified (1 source) COUGH, UNSPECIFIED; Translations: [COUGH, UNSPECIFIED] Onset: 07-04-2022 Unclassified (4 sources) Patient status finding; Translations: [Patient new to provider] Unclassified (1 source) Acute candidiasis of vulva and vagina; Translations: [Acute candidiasis of vulva and vagina] Procedures Date Procedure Procedure Detail Performing Clinician Start: 11-11-2023 ALL FOLLICLE STIMULATING HORMONE Generic External Data Provider Start: 11-11-2023 Gonadotropin follicle stimulating hormone Frank Diaz [employer] - CNM Work Phone: Start: 11-11-2023 MHPT ESTRADIOL Generic External Data Provider Start: 06-09-2023 Echocardiography Caitlin Finch Work Phone: Start: 01-01-2023 Iadna mary species direct probe tq Frank Diaz [employer] - CNM Work Phone: Start: 01-01-2023 Gonadotropin follicle stimulating hormone Frank Diaz [employer] - CNM Work Phone: Start: 01-01-2022 MRI of head DO Fernando Ragsdale Work Phone: Start: 06-26-2021 Colonoscopy Generic Provider Start: 06-26-2021 Colonoscopy Roney VILLALTA Start: 06-26-2021 Esophagogastroduodenoscopy Roney Kaiser Start: 12-18-2020 Blood count complete auto&auto difrntl wbc Keturah F Lance Plasencia Work Phone: Start: 11-12-2020 Partial hysterectomy Roney VILLALTA Start: 11-05-2020 COVID-19 Vik Waggoner Work Phone: Start: 10-05-2020 Us breast uni real time with image complete Frank Diaz Work Phone: Start: 08-31-2020 Assay of estradiol Frank Diaz Work Phone: Start: 08-31-2020 Gonadotropin follicle stimulating hormone Frank Diaz Work Phone: Start: 08-31-2020 Gonadotropin luteinizing hormone Frank Diaz Work Phone: Start: 08-31-2020 Assay of thyroid stimulating hormone tsh Frank Diaz Work Phone: Start: 07-12-2020 Us transvaginal Frank Diaz Work Phone: Start: 09-28-2017 Fracture of bone of nasal sinus (disorder) Roney VILLALTA Appendectomy Roney VILLALTA Appendectomy [employer] Work Phone: Colonoscopy Caitlin Singletary [employer] Work Phone: Comment on above: 2021; Counseling Ramona Jimenez Other Depression screening Ramona carmona Other Esophagogastroduodenoscopy L dayanajulio Singletary [employer] Work Phone: Hysterectomy Caitlin Singletary [employer] Work Phone: Results Test Name Value Interpretation Reference Range Facility Cult,Genitalon 11-14-2023 Cult,Genital Specimen Description .VAGINA Culture NORMAL URO-GENITAL JORDYN YEAST NOT MARY ALBICANS OR MARY DUBLINIENSIS MODERATE GROWTH NEGATIVE FOR GROUP B STREPTOCOCCI NEGATIVE FOR NEISSERIA GONORRHOEAE Report Status FINAL 11/14/2023 Normal [facility] Comment on above: Performed By: #### G EC #### [employer] [address] [place] [address] Electrician Second: Ruddy Morales MD [facility] [address] [place] [address] Electrician Second: Jana Mei MD ALL FOLLICLE STIMULATING HOR MONEon 11-12-2023 MHPT FOLLICLE STIM. HORM 55.5 mIU/mL [facility] Comment on above: Reference Range: Male: 1.5-12.4 Ovulating Female: Follicular Phase 3.5-12.5 Ovulation Phase 4.7-21.5 Luteal Phase 1.7-7.7 Postmenopausal Female: 25.8-134.8 Estradiolon 11-12-2023 Estradiol 108.0 pg/mL [facility] Comment on above: FEMALES: Normally menstruating Luteal phase 60-232 Follicular phase 31-90 Midcycle phase 60-533 Postmenopausal (untreated) <138 Fulvestrant treatment will show an increased estradiol concentration with this methodology. Alternate methodologies are available upon request. Estradiol 108.0 pg/mL Normal [facility] Comment on above: Result Comment: FEMALES: Normally menstruating Luteal phase 60-232 Follicular phase 31-90 Midcycle phase 60-533 Postmenopausal (untreated) <138 Fulvestrant treatment will show an increased estradiol concentration with this methodology. Alternate methodologies are available upon request. Performed By: #### E 2, FSH, LH #### [employer] [facility] [place] [address] Electrician Second: Ruddy Morales MD Follicle Stim. Hormon 2023 Follicle Stim. Horm 55.5 mIU/mL [facility] Comment on above: Result Comment: Refe rence Range: Male: 1.5-12.4 Ovulating Female: Follicular Phase 3.5-12.5 Ovulation Phase 4.7-21.5 Luteal Phase 1.7-7.7 Postmenopausal Female: 25.8-134.8 Performed By: #### E 2, FSH, LH #### [employer] [facility] [place] [address] Electrician Second: Ruddy Morales MD Follicle Stimulating Hormone on 11-12-2023 Follitropin Qn 55.5 m[IU]/mL mIU/mL [facility] Comment on above: Reference Range: Male: 1.5-12.4 Ovulating Female: Follicular Phase 3.5-12.5 Ovulation Phase 4.7-21.5 Luteal Phase 1.7-7.7 Postmenopausal Female: 25.8-134.8 Luteinizing Hormoneon 2023 Interpretation and review of laboratory results Abnormal [facility] Luteinizing Hormone 33.8 mIU/mL High 1.7-8.6 [facility] Comment on above: Result Comment: Refe rence Range: Male: 1.7-8.6 Ovulating Female: Follicular Phase 2.4-12.6 Ovulation Phase 14.0-95.6 Luteal Phase 1.0-11.4 Postmenopausal Female: 7.7-58.5 Performed By: #### E 2, FSH, LH #### [employer] [address] [place], [place] [id number] Electrician Second: MD Shoaib Jean 33.8 m[IU]/mL High [facility] Comment on above: Reference Range: Male: 1.7-8.6 Ovulating Female: Follicular Phase 2.4-12.6 Ovulation Phase 14.0-95.6 Luteal Phase 1.0-11.4 Postmenopausal Female: 7.7-58.5 MHPT ESTRADIOLon 11-12-2023 MHPT ESTRADIOL 108.0 pg/mL [facility] Comment on above: FEMALES: Normally menstruating Luteal phase 60-232 Follicular phase 31-90 Midcycle phase 60-533 Postmenopausal (untreated) <138 Fulvestrant treatment will show an increased estradiol concentration with this methodology. Alternate methodologies are available upon request. No Panel Informationon 11-12 [facility] Original Ordering Pr ovider: [facility]ANK D[facility]Z [facility] COVID + FLU Quick Testingon 09-29-2023 SARS-CoV-2 (COVID-19) RNA KEN+probe Ql (Unsp spec) Negative [facility] Other COVID + FLU Quick Testing Negative [employer] Other Quick Strepon 09-29-2023 S. pyogenes Org specific cx Ql (Throat) Negative [employer] Other Quick Strep [facility] Other Ambulatory Visit Summaryon 1 Ambulatory Visit Summary ANDREA LONG :1980 Visit Date:07/06/2023 Ambulatory Visit Instructions Your Diagnosis Bilateral kidney stones Tests Performed Urnls Dip Stick Auto w/o Microscopy POC 21513 XR Abdomen 1 View -- Results Pending [...] Follow-Up Appointments Thursday 12:45 PM EDT With: PAWAN HAWLEY, Roney Kumar Where: [facility] Patient Educationon 07-06-20 23 Patient Education Nephrology Dietary Guidelines to Help [...] ? 8 oz (237 mL) of milk, ifvmdth-xmbudojxfrpl-kxcqg milk, and calcium-fortifiedfruit juice. Calcium-fortified means that [...] Spinach (cooked), rhubarb, beets, sweet potatoes, and Eritrean chard. ? Peanuts. ? Potato chips, argentine fries, and baked potatoes with skin on. ? Nuts and nut products. ? Chocolate. ? If you regularly take a diuretic medicine, make sure to eat at least 1 or 2 servings of fruits or vegetables that are high in potassium each day. These include: ? Avocado. ? Banana. ? [place], prune, carrot, or tomato juice. ? Baked [...] fish oil, or vitamin B6. ? Take nzlv-qdy-mpfoyyi and prescription medicines only as told by your health care provider. These include supplements. What foods should I limit? Limit your in (more content not included)... Normal [facility] RAD - MISCon 07-06-2023 RAD MIS [id number] Normal [facility] Urology Office/Clinic Noteon 07-06-2023 Urology [...] When Contact Information PAWAN HAWLEY, Roney Kumar, [place] In 1 year [facility] [address] [place] [address]- Additional Instructions: w/KUB Patient Education Dietary Guidelines [...] Date Stat (more content not included)... Normal [facility] Comment on above: Result Comment: Elec tronically Signed By: Roney VILLALTA MD\.br\Date and Time Signed: 07/06/23 14:23 EDT\.br\Electronically Co-Signed By: Dinah Nguyễn.br\Date and Time Co-Signed: 07/06/23 14:21 EDT RAD - MISCon 07-03-2023 RAD - MISC [id number] [facility] Echocardiogramon 06-09-[address], [address] [place] [address] TRANSTHORACIC ECHOCARDIOGRAM REPORT Patient Name: ANDREA Gomez Physician: [id number] Crystal Bone MD, [facility] Study Date: 06/09/2023 Referring SHANEKA DIAZ Physician: MRN/PID: [id number] PCP: Caitlin Finch Accession/Order#: [id number] [facility] Location: Date of : 1980 Fellow: Gender: F Nurse: Anjelica Gaming RN Admit Date: Pot Press Operator: Ana Javier RDCS, RVT Height: 165.10 cm CC Report to: Weight: 78.02 kg Study Type: Echocardiogram BSA: 1.86 m2 Diagnosis/ICD: R94.31-Abnormal electrocardiogram [ECG] [EKG]; R06.02-Shortness of breath; E01-Rvilvqp Indication: Former Smoker, Overweight, Fibromyalgia, COVID-19 2021 Procedure/CPT: Echo Complete w Full Doppler-[id number] Study Detail: The following Echo studies were [...] 0.5 m/s (0.6-0.9m/s) PV Max P.9 mmHg 15308 Crystal Bone MD, [facility] Electronically signed on 06/12/2023 at 5:55:[address] [facility] CA tilt table teston 023 CA tilt table test [facility] [place] [address] Cardiology Report Signed Patient: Andrea Long MR#: [id number] : 1980 Acct:[id number] Age/Sex: 43 / F ADM Date: 05/13/23 Loc: Room: Type: [facility] Attending Dr: Shaneka Diaz MD Copies to: [...] throughout the test. Transcribed By: ANDREW 05/13/23 8502 Dictated By: Ayna Watkins MD 05/13/23 1556 Signed By: 05/15/23 0000 Normal [facility] No Panel Informationon 05-13 [facility]-Britney y 250 DO Work Phone: Office Visit (Cardiology)on [...] Syncope Echocardiogram; Status:Hold For - Scheduling; Requested for:[id number]; IO Holter Monitor up to 48 Hrs; Status:Active - Perform Order; Requested for:[id number]; Tilt Table; Status:Hold For - Scheduling; Requested for:[id number]; SocHx: Former smoker Tobacco Use Screening; Status:Complete; Done: [id number] Syncope IO EKG Electrocardiogram- 12 Lead; Status:Complete; Done: [id number] Patient Instructions Please bring all medicines, vitamins, [...] shows normal sinus rhythm at 86 bpm CO interval 116 ms QRS duration 78 ms [...] further questions arise, Sincerely, Shaneka Diaz MD [facility] Surgical History Problems History of Appendectomy History [...] (56 MG (more content not included)... Normal [facility] PHQ-2 VITALSon 04-23-2023 PHQ-2 VITALS Yes [facility] [facility] [facility] DO Work Phone: CBC AUTO DIFFon 02-09-2023 BASO # 0.0 103/ul Normal 0.0-0.1 [facility] Comment on above: Performed By: #### N A24U, [id number] #### [facility] [address] [address] [address] Manjinder Forman Basophils/100 WBC (Bld) 0.8 % Normal 0.2-2.0 [facility] Comment on above: Performed By: #### N A24U, [id number] #### [facility] [address] [address] [address] Manjinder Forman EO # 0.0 103/ul Normal 0.0-0.7 [facility] Comment on above: Performed By: #### N A24U, [id number] #### [facility] [address] [address] [address] Manjinder Forman Eosinophils/100 WBC (Bld) 0.8 % Critically low 0.9-7.0 [facility] Comment on above: Performed By: #### N A24U, [id number] #### [facility] [address] [address] [address] Manjinder Forman Erythrocyte distribution width (RBC) [Ratio] 12.1 % Normal 11.0-15.0 [facility] Comment on above: Performed By: #### N A24U, [id number] #### [facility] [address] [place] [address] Dr. Manjinder Forman Hematocrit (Bld) [Volume fraction] 39.0 % Normal 36.0-48.0 [facility] Comment on above: Performed By: #### N A24U, [id number] #### [facility] [address] [place] [address] Dr. Manjinder Forman Hemoglobin (Bld) [Mass/Vol] 13.0 g/dL Normal 12.0-16.0 [facility] Comment on above: Performed By: #### N A24U, [id number] #### [facility] [address] [place] [address] Dr. Manjinder Forman IG # 0.02 10e3/ul Normal 0.00-0.03 [facility] Comment on above: Performed By: #### N A24U, [id number] #### [facility] [address] [place] [address] Dr. Manjinder Forman IG % 0.5 % Normal 0.0-0.5 [facility] Comment on above: Performed By: #### N A24U, [id number] #### [facility] [address] [place] [address] Dr. Manjinder Forman LYMPH # 0.9 103/ul Critically low 1.2-3.8 [facility] Comment on above: Performed By: #### N A24U, [id number] #### [facility] [address] [place] [address] Dr. Manjinder Forman Lymphocytes/100 WBC (Bld) 21.9 % Normal 20.5-60.0 [facility] Comment on above: Performed By: #### N A24U, [id number] #### [facility] [address] [place] [address] Dr. Manjinder Forman MANUAL DIFF REQ NO Normal [facility] Comment on above: Performed By: #### N A24U, [id number] #### [facility] [address] [place] [address] Dr. Manjinder Forman MCH (RBC) [Entitic mass] 31.5 pg Normal 26.7-34.0 [facility] Comment on above: Performed By: #### N A24U, [id number] #### [facility] [address] [place] [address] Dr. Manjinder Forman MCHC (RBC) [Mass/Vol] 33.3 g/dL Normal 29.9-35.2 [facility] Comment on above: Performed By: #### N A24U, [id number] #### [facility] [address] [place] [address] Dr. Manjinder Forman MCV (RBC) [Entitic vol] 94.4 fL Normal 81.0-99.0 [facility] Comment on above: Performed By: #### N A24U, [id number] #### [facility] [address] [place] [address] Dr. Manjinder Forman MONO # 0.5 103/ul Normal 0.3-0.8 [facility] Comment on above: Performed By: #### N A24U, [id number] #### [facility] [address] [place] [address] Dr. Manjinder Forman Monocytes/100 WBC (Bld) 11.5 % Normal 1.7-12.0 [facility] Comment on above: Performed By: #### N A24U, [id number] #### [facility] [address] [place] [address] Dr. Manjinder Forman NEUT # 2.5 103/ul Normal 1.4-6.5 [facility] Comment on above: Performed By: #### N A24U, [id number] #### [facility] [address] [place] [address] Dr. Manjinder Forman Neutrophils/100 WBC (Bld) 64.5 % Normal 43.0-75.0 [facility] Comment on above: Performed By: #### N A24U, [id number] #### [facility] [address] [address] [address] Manjinder Forman Platelet mean volume (Bld) [Entitic vol] 10.0 fL Normal 9.5-13.5 [facility] Comment on above: Performed By: #### N A24U, [id number] #### [facility] [address] [place] [address] Dr. Manjinder Forman PLT 289 103/ul Normal 150-450 [facility] Comment on above: Performed By: #### N A24U, [id number] #### [facility] [address] [place] [address] Dr. Manjinder Forman RBC 4.13 106/ul Critically low 4.20-5.40 [facility] Comment on above: Performed By: #### N A24U, [id number] #### [facility] [address] [place] [address] Dr. Manjinder Forman WBC 3.9 103/ul Critically low 4.0-11.0 [facility] Comment on above: Performed By: #### N A24U, [id number] #### [facility] [address] [place] [address] Dr. Manjinder Forman DRUG SCREEN RAPID (URINE)on 02-09-2023 AMP Positive Abnormal NEGATIVE [facility] Comment on above: Performed By: #### D RUGRPD, ERUR, PREGU #### [facility] [address] [place] [address] Dr. Manjinder Forman BAR Negative Normal NEGATIVE [facility] Comment on above: Performed By: #### D RUGRPD, ERUR, PREGU #### [facility] [address] [place] [address] Dr. Manjinder Forman BUP Negative Normal NEGATIVE [facility] Comment on above: Performed By: #### D RUGRPD, ERUR, PREGU #### [facility] [address] [place] [address] Dr. Manjinder Forman BZO Positive Abnormal NEGATIVE [facility] Comment on above: Performed By: #### D RUGRPD, ERUR, PREGU #### [facility] [address] [address] [address] Manjinder Forman BAO Negative Normal NEGATIVE [facility] Comment on above: Performed By: #### D RUGRPD, ERUR, PREGU #### [facility] [address] [place] [address] Dr. Manjinder Forman CUT-OFFS SEE BELOW Normal [facility] Comment on above: Result Comment: AMP (Amphetamine): [...] By: #### D RUGRPD, ERUR, PREGU #### [facility] [address] [place] [address] Dr. Manjinder Forman DRUG CUT HEADER DRUG CLASS TEST SYST EM CUT-OFF CONCENTRATIONS ARE FOLLOWS: Normal [facility] Comment on above: Performed By: #### D RUGRPD, ERUR, PREGU #### [facility] [address] [place] [address] Dr. Manjinder Forman mAMP Negative Normal NEGATIVE [facility] Comment on above: Performed By: #### D RUGRPD, ERUR, PREGU #### [facility] [address] [place] [address] Dr. Manjinder Forman MTD Negative Normal NEGATIVE [facility] Comment on above: Performed By: #### D RUGRPD, ERUR, PREGU #### [facility] [address] [place] [address] Dr. Manjinder Forman OPI Negative Normal NEGATIVE [facility] Comment on above: Performed By: #### D RUGRPD, ERUR, PREGU #### [facility] [address] [place], [place] [id number] Dr. Manjinder Forman OXY Negative Normal NEGATIVE [facility] Comment on above: Performed By: #### D RUGRPD, ERUR, PREGU #### [facility] [address] [address] [address] Manjinder Forman PCP Negative Normal NEGATIVE [facility] Comment on above: Performed By: #### D RUGRPD, ERUR, PREGU #### [facility] [address] [address] [address] Manjinder Forman PPX Negative Normal NEGATIVE [facility] Comment on above: Performed By: #### D RUGRPD, ERUR, PREGU #### [facility] [address] [place] [address] Dr. Manjinder Forman TCA Negative Normal NEGATIVE [facility] Comment on above: Performed By: #### D RUGRPD, ERUR, PREGU #### [facility] [address] [place] [address] Dr. Manjinder Forman THC Negative Normal NEGATIVE [facility] Comment on above: Performed By: #### D RUGRPD, ERUR, PREGU #### [facility] [address] [address] [address] Manjinder Forman ER URINE PROFILEon 3 Bilirubin Ql (U) Negative Normal NEGATIVE [facility] Comment on above: Performed By: #### D RUGRPD, ERUR, PREGU #### [facility] [address] [place] [address] Dr. Manjinder Forman Clarity (U) CLEAR Normal CLEAR [facility] Comment on above: Performed By: #### D RUGRPD, ERUR, PREGU #### [facility] [address] [address] [address] Manjinder Forman Color (U) LT. YELLOW Normal YELLOW [facility] Comment on above: Performed By: #### D RUGRPD, ERUR, PREGU #### [facility] [address] [place] [address] Dr. Manjinder Forman ERUAHD A micrscopic examina tion will be performed if indicated. Normal [facility] Comment on above: Performed By: #### D RUGRPD, ERUR, PREGU #### [facility] [address] [address] [address] Manjinder Forman Glucose Ql (U) Negative Normal NEGATIVE [facility] Comment on above: Performed By: #### D RUGRPD, ERUR, PREGU #### [facility] [address] [address] [address] Manjinder Forman Hemoglobin Ql (U) Negative Normal NEGATIVE [facility] Comment on above: Performed By: #### D RUGRPD, ERUR, PREGU #### [facility] [address] [address] [address] Manjinder Forman Ketones Ql (U) Negative Normal NEGATIVE [facility] Comment on above: Performed By: #### D RUGRPD, ERUR, PREGU #### [facility] [address] [address] [address] Manjinder Forman LEUKOCYTES Negative Normal NEGATIVE [facility] Comment on above: Performed By: #### D RUGRPD, ERUR, PREGU #### [facility] [address] [address] [address] Manjinder Forman Nitrite Ql (U) Negative Normal NEGATIVE [facility] Comment on above: Performed By: #### D RUGRPD, ERUR, PREGU #### [facility] [address] [address] [address] Manjinder Forman pH (U) 7.0 [pH] Normal 5-9 [facility] Comment on above: Performed By: #### D RUGRPD, ERUR, PREGU #### [facility] [address] [address] [address] Manjinder Forman SPEC GRAVITY <=1.005 Abnormal 1.005-<=1. 025 [facility] Comment on above: Performed By: #### D RUGRPD, ERUR, PREGU #### [facility] [address] [address] [address] Manjinder Forman UA PROTEIN Negative Normal NEGATIVE/ TRACE [facility] Comment on above: Performed By: #### D RUGRPD, ERUR, PREGU #### [facility] [address] [place] [address] Dr. Manjinder Forman UR MICRO IND NOT INDICATED Normal [facility] Comment on above: Performed By: #### D RUGRPD, ERUR, PREGU #### [facility] [address] [place] [address] Dr. Manjinder Forman Urobilinogen Qn (U) 0.2 {Gabi'U}/dL Normal 0.2 - 1.0 [facility] Comment on above: Performed By: #### D RUGRPD, ERUR, PREGU #### [facility] [address] [place] [address] Dr. Manjinder Forman URon 02-09-2023 , QUAL Negative Normal NEGATIVE [facility] Comment on above: Performed By: #### D RUGRPD, ERUR, PREGU #### [facility] [address] [place] [address] Dr. Manjinder Forman PROF 14(COMP METB)on 023 Albumin [Mass/Vol] 3.8 g/dL Normal 3.4-5.0 [facility] Comment on above: Performed By: #### H RON, CMP #### [facility] [address] [place] [address] Dr. Manjinder Forman Albumin/Globulin [Mass ratio] 1.2 {ratio} Normal [facility] Comment on above: Performed By: #### H STROPN, CMP #### [facility] [address] [place] [address] Dr. Manjinder Forman ALP [Catalytic activity/Vol] 87 U/L Normal 46-116 [facility] Comment on above: Performed By: #### H STROPN, CMP #### [facility] [address] [place] [address] Dr. Manjinder Forman ALT [Catalytic activity/Vol] 31 U/L Normal 14-59 [facility] Comment on above: Performed By: #### H STROPN, CMP #### [facility] [address] [place] [address] Dr. Manjinder Forman Anion gap [Moles/Vol] 21.4 mmol/L Normal [facility] Comment on above: Performed By: #### H JUANPN, CMP #### [facility] [address] [place] [address] Dr. Manjinder Forman AST [Catalytic activity/Vol] 24 U/L Normal 15-37 [facility] Comment on above: Performed By: #### H JUANPN, CMP #### [facility] [address] [place] [address] Dr. Manjinder Forman Bilirubin [Mass/Vol] 0.3 mg/dL Normal 0.2-1.0 [facility] Comment on above: Performed By: #### H JUANPN, CMP #### [facility] [address] [place] [address] Dr. Manjinder Forman Calcium [Mass/Vol] 8.9 mg/dL Normal 8.5-10.1 [facility] Comment on above: Performed By: #### H RON, CMP #### [facility] [address] [place] [address] Dr. Manjinder Forman Chloride [Moles/Vol] 105 mmol/L Normal 98-107 [facility] Comment on above: Performed By: #### H RON, CMP #### [facility] [address] [place] [address] Dr. Manjinder Forman CO2 [Moles/Vol] 19.1 mmol/L Critically low 21.0-32.0 [facility] Comment on above: Performed By: #### H JUANPN, CMP #### [facility] [address] [place] [address] Dr. Manjinder Forman Creatinine [Mass/Vol] 0.81 mg/dL Normal 0.55-1.02 [facility] Comment on above: Performed By: #### H JUANPN, CMP #### [facility] [address] [place] [address] Dr. Manjinder Forman EGFR-AF TUVALUAN >60 Normal >=60 [facility] Comment on above: Performed By: #### H JUANPN, CMP #### [facility] [address] [place] [address] Dr. Manjinder Forman EGFR-NON AF TUVALUAN >60 Normal >=60 [facility] Comment on above: Performed By: #### H JUANPN, CMP #### [facility] [address] [address] [address] Manjinder Forman Globulin (S) [Mass/Vol] 3.1 g/dL Normal [facility] Comment on above: Performed By: #### H STROPN, CMP #### [facility] [address] [place] [address] Dr. Manjinder Forman Glucose [Mass/Vol] 103 mg/dL Normal 74-106 [facility] Comment on above: Performed By: #### H JUANPN, CMP #### [facility] [address] [place] [address] Dr. Manjinder Forman Potassium [Moles/Vol] 3.5 mmol/L Normal 3.5-5.1 [facility] Comment on above: Performed By: #### H JUANPN, CMP #### [facility] [address] [place] [address] Dr. Manjinder Forman Protein [Mass/Vol] 6.9 g/dL Normal 6.4-8.2 [facility] Comment on above: Performed By: #### H STROPN, CMP #### [facility] [address] [place] [address] Dr. Manjinder Forman Sodium [Moles/Vol] 142 mmol/L Normal 136-145 [facility] Comment on above: Performed By: #### H JUANPN, CMP #### [facility] [address] [place] [address] Dr. Manjinder Forman Urea nitrogen [Mass/Vol] 12.0 mg/dL Normal 7.0-18.0 [facility] Comment on above: Performed By: #### H STROPN, CMP #### [facility] [address] [place] [address] Dr. Manjinder Forman Urea nitrogen/Creatinin e [Mass ratio] 14.8 mg/mg Normal [facility] Comment on above: Performed By: #### H JUANPN, CMP #### [facility] [address] [place] [address] Dr. Manjinder Forman Cult,Urineon 01-02-2023 Cult,Urine Specimen Description .CLEAN CATCH URINE Culture NO SIGNIFICANT GROWTH Report Status FINAL 01/02/2023 Normal [facility] Comment on above: Performed By: #### U RC #### [id number] [place], [place] [id number] Electrician Second: Ruddy Moarles MD [facility] [address] [place] [address] Electrician Second: Jana Mei MD Estradiolon 01-02-2023 Estradiol 72.1 pg/mL Normal 27-314 [facility] Comment on above: Result Comment: FEMALES: Normally menstruating Luteal phase 33-298 Follicular phase 27-156 Midcycle phase 48-314 Postmenopausal (untreated) 5-50 Fulvestrant treatment will show an increased estradiol concentration with this methodology. Alternate methodologies are available upon request. Performed By: #### F SH, LH, E2 #### [id number] [place], [place] [id number] Electrician Second: Ruddy Morales MD Follicle Stim. Hormon 2022 Follicle Stim. Horm 64.8 mIU/mL High 1.7-21.5 [facility] Comment on above: Result Comment: Refe rence Range: Male: 1.5-12.4 Ovulating Female: Follicular Phase 3.5-12.5 Ovulation Phase 4.7-21.5 Luteal Phase 1.7-7.7 Postmenopausal Female: 25.8-134.8 Performed By: #### F SH, LH, E2 #### [facility] [address] [place], [place] [id number] Electrician Second: Ruddy Morales MD Luteinizing Hormoneon 2022 Luteinizing Hormone 40.9 mIU/mL Normal 1.0-95.6 [facility] Comment on above: Result Comment: Refe rence Range: Male: 1.7-8.6 Ovulating Female: Follicular Phase 2.4-12.6 Ovulation Phase 14.0-95.6 Luteal Phase 1.0-11.4 Postmenopausal Female: 7.7-58.5 Performed By: #### F SH, LH, E2 #### [facility] [address] [place] [address] Electrician Second: Ruddy Morales MD Vaginitis DNA Probeon 2022 Mary Negative [facility] Comment on above: Result Comment: for Mary sp. Method of testing is a DNA probe intended for detection and identification of Mary species, Gardnerella vaginalis, and Trichomonas vaginalis nucleic acid in vaginal fluid specimens from patients with symptoms of vaginitis/vaginosis. Performed By: #### V AGP #### [facility] [address] [place] [address] Electrician Second: Ruddy Morales MD [facility] [address] [place] [address] [place] [address] Electrician Second: Jana Mei MD Gardnerella Negative [facility] Comment on above: Result Comment: for Gardnerella vaginalis Performed By: #### V AGP #### [facility] [address] [place] [address] Electrician Second: Ruddy Morales MD [facility] [address] [place] [address] [place] [address] Electrician Second: Jana Mei MD Trichomonas Negative [facility] Comment on above: Result Comment: for Trichomonas Vaginalis Performed By: #### V AGP #### [address] [address] Electrician Second: Ruddy Morales MD [facility] [address] [place] [address] Dr. [place], [place] [id number] Electrician Second: Jana Mei MD Estradiolon 01-01-2023 Estradiol 72.1 pg/mL 27 - 314 pg/mL [facility] Comment on above: FEMALES: Normally menstruating Luteal phase 33-298 Follicular phase 27-156 Midcycle phase 48-314 Postmenopausal (untreated) 5-50 Fulvestrant treatment will show an increased estradiol concentration with this methodology. Alternate methodologies are available upon request. Follicle Stimulating Hormone on 01-01-2023 FSH 64.8 High [facility] Comment on above: Reference Range: Male: 1.5-12.4 Ovulating Female: Follicular Phase 3.5-12.5 Ovulation Phase 4.7-21.5 Luteal Phase 1.7-7.7 Postmenopausal Female: 25.8-134.8 Interpretation and review of laboratory results Abnormal [facility] Luteinizing Hormoneon 2022 LH 40.9 [facility] Comment on above: Reference Range: Male: 1.7-8.6 Ovulating Female: Follicular Phase 2.4-12.6 Ovulation Phase 14.0-95.6 Luteal Phase 1.0-11.4 Postmenopausal Female: 7.7-58.5 No Panel Informationon 01-01 [facility] Vaginitis DNA Probeon 2022 Mary Species, DNA Probe Negative NEGATIVE [facility] Comment on above: for Mary sp. Method of testing is a DNA probe intended for detection and identification of Mary species, Gardnerella vaginalis, and Trichomonas vaginalis nucleic acid in vaginal fluid specimens from patients with symptoms of vaginitis/vaginosis. Gardnerella Vaginalis, DNA Probe Negative NEGATIVE [facility] Comment on above: for Gardnerella vagi nalis Source .VAGINAL SWAB Normal [facility] Comment on above: Performed By: #### V AGP #### [facility] [address] [place] [address] Electrician Second: Ruddy Morales MD [facility] [address] [place] [address] Electrician Second: Jana Mei MD Source .VAGINAL SWAB [facility] Trichomonas Vaginalis DNA Negative NEGATIVE [facility] Comment on above: for Trichomonas Vagi nalis [facility] Ambulatory Visit Summaryon 0 12-22-2022 Ambulatory Visit [...] Roney VILLALTA MD Where: [facility] Patient Educationon 12-23-19 23 Patient Education Urology [...] Rhubarb. ? Beets. ? Potato chips and argentine fries. ? Nuts. ? If you regularly take a diuretic medicine, make sure to eat at least 1?2 fruits or vegetables high in potassium each day. These include: ? Avocado. ? Banana. ? [place], prune, carrot, or tomato juice. ? Baked [...] and other foods Seasoning blends with salt. Hernesto terry (more content not included)... Normal [facility] Office/Clinic Noteon 12-22-2022 Urology [...] [facility] [address], [place] [address]- Additional Instructions: 6 mos KUB Patient Education Dietary Guidelines to Help Prevent Kidney Stones I, Jennifer Griffiths, personally scribed for Dr. Villalta on 12/22/2022 [...] 09/05/2015 Recorded influenza, whole 07/23/2009 Recorded Normal [facility] Comment on above: Result Comment: Elec tronically Signed By: Roney VILLALTA MD\.br\Date and Time Signed: 12/22/22 14:37 EDT\.br\Electronically Co-Signed By: Jennifer Griffiths.br\Date and Time Co-Signed: 12/22/22 14:35 EDT [facility] 09-12-2022 Lab Reports [id number]:[id number] Normal [facility] CITRATE URINE 24HRon 022 Citric Acid, U, 24hr 292 mg/24 hr Critically low 320-1240 [facility] Comment on above: Result Comment: This test was developed and its performance characteristics determined by [facility]. It has not been cleared or approved by the Food and Drug Administration. Performed By: #### D DIM #### [facility] [address] [place] [address] Dr. Manjinder Forman Citric Acid, Urine 136 mg/L Normal Undefined [facility] Comment on above: Performed By: #### D DIM #### [facility] [address] [place] [address] Dr. Manjinder Forman OXALATE 24HR URINEon 022 Oxalates, Urine 6 mg/L Normal Undefined [facility] Comment on above: Performed By: #### H RON, CMP #### [facility] [address] [place] [address] Dr. Manjinder Forman Oxalates, Urine 24hr 13 mg/24 hr Normal 4-31 [facility] Comment on above: Performed By: #### H JUANPN, CMP #### [facility] [address] [place] [address] Dr. Manjinder Forman MAGNESIUM 24HR URINEon 09-04 Magnesium 24hr Urine 47.3 mg/24 hr Normal 12.0-293.0 [facility] Comment on above: Performed By: #### N A24U, [id number] #### [facility] [address] [address] [address] Manjinder Forman Magnesium UR 2.2 mg/dL Normal Not Estab. [facility] Comment on above: Performed By: #### N A24U, [id number] #### [facility] [address] [address] [address] Manjinder Forman PHOSPHORUS 24HR URINEon Phosphorus, Urine 30.2 mg/dL Normal Not Estab. The [facility] Comment on above: Performed By: #### H STROPN, CMP #### [facility] [address] [address] [address] Manjinder Forman Phosphorus, Urine 24hr 649 mg/24 hr Normal 261-1078 [facility] Comment on above: Performed By: #### H STROPN, CMP #### [facility] [address] [place] [address] Dr. Manjinder Forman PTH INTACTon 09-04-2022 PTH, Intact 32 pg/mL Normal 15-65 [facility] Comment on above: Performed By: #### D DIM #### [facility] [address] [place] [address] Dr. Manjinder Forman URIC ACID 24 HR URINEon Uric Acid, Urine 18.6 mg/dL Normal Not Estab. The [facility] Comment on above: Performed By: #### D DIM #### [facility] [address] [place] [address] Dr. Manjinder Forman Uric Acid, Urine 24hr 399.9 mg/24 hr Normal 173.7-902. 1 [facility] Comment on above: Performed By: #### D DIM #### [facility] [address] [address] [address] Manjinder Forman BUNon 09-03-2022 Urea nitrogen [Mass/Vol] 8.0 mg/dL Normal 7.0-18.0 [facility] Comment on above: Performed By: #### H STROPN, CMP #### [facility] [address] [address] [address] Manjinder Forman CALCIUMon 09-03-2022 Calcium [Mass/Vol] 9.0 mg/dL Normal 8.5-10.1 The [facility] Comment on above: Performed By: #### H STROPN, CMP #### [facility] [address] [place] [address] Dr. Manjinder Forman CALCIUM 24 HR URINEon 2021 CALC, 24 HR UR 107.5 mg/24 hr Normal 100.0-300. 0 [facility] Comment on above: Performed By: #### D DIM #### [facility] [address] [place] [address] Dr. Manjinder Forman UR CALCIUM 5.0 mg/dL Critically low 5.1-21.0 [facility] Comment on above: Performed By: #### D DIM #### [facility] [address] [place] [address] Dr. Manjinder Forman CHLORIDEon 09-03-2022 Chloride [Moles/Vol] 102 mmol/L Normal 98-107 [facility] Comment on above: Performed By: #### D DIM #### [facility] [facility] [address] [place] [address] Dr. Manjinder Forman CO2on 09-03-2022 CO2 [Moles/Vol] 29.7 mmol/L Normal 21.0-32.0 [facility] Comment on above: Performed By: #### D DIM #### [facility] [address] [place] [address] Dr. Manjinder Forman CREA 24 HR URINEon 2 CREA, 24 HR UR 760.24 mg/24 hr Critically low 800.00-1 ,8 00.00 [facility] Comment on above: Performed By: #### N A24U, [id number] #### [facility] [address] [place] [address] Dr. Manjinder Forman UR TOT VOL 2150 ml/24 HR Normal [facility] Comment on above: Performed By: #### N A24U, [id number] #### [facility] [address] [place] [address] Dr. Manjinder Forman Performed By: #### D DIM #### [facility] [address] [place] [address] Dr. Manjinder Forman URINE CREAT 35.36 mg/dL Normal 20.00-300. 00 [facility] Comment on above: Performed By: #### N A24U, [id number] #### [facility] [address] [place] [address] Dr. Manjinder Forman CREATININEon 09-03-2022 Creatinine [Mass/Vol] 0.87 mg/dL Normal 0.55-1.02 [facility] Comment on above: Performed By: #### H STROPN, CMP #### [facility] [address] [place] [address] Dr. Manjinder Forman EGFR-AF TUVALUAN >60 Normal >=60 [facility] Comment on above: Performed By: #### H STROPN, CMP #### [facility] [address] [place] [address] Dr. Manjinder Forman EGFR-NON AF TUVALUAN >60 Normal >=60 [facility] Comment on above: Performed By: #### H STROPN, CMP #### [facility] [address] [place] [address] Dr. Manjinder Forman NAon 09-03-2022 Sodium [Moles/Vol] 137 mmol/L Normal 136-145 [facility] Comment on above: Performed By: #### H STROPN, CMP #### [facility] [address] [place] [address] Dr. Manjinder Forman POTASSIUMon 09-03-2022 Potassium [Moles/Vol] 4.1 mmol/L Normal 3.5-5.1 [facility] Comment on above: Performed By: #### H STROPN, CMP #### [facility] [address] [place] [address] Dr. Manjinder Forman SODIUM 24 HR URINEon 022 NA, 24 HR UR 153 mmol/24 hr Normal 40-220 [facility] Comment on above: Performed By: #### N A24U, [id number] #### [facility] [address] [place] [address] Dr. Manjinder Forman Sodium (U) [Moles/Vol] 71 mmol/L Normal 30-90 [facility] Comment on above: Performed By: #### N A24U, [id number] #### [facility] [id number] Manjinder Forman URIC ACID SERUMon 09-03-2022 Urate [Mass/Vol] 5.1 mg/dL Normal 2.6-6.0 [facility] Comment on above: Performed By: #### H STROPN, CMP #### [facility] [address] [place], [place] [address] Dr. Manjinder Forman Formson 09-02-2022 Forms [id number]:127 Normal [facility] Physician Referralon 022 Physician Referral [id number]:127 Normal [facility] Ambulatory Visit Summaryon 1 11-02-2021 Ambulatory Visit Summary ANDREA LONG :1980 Visit Date:09/01/2022 Ambulatory Visit Instructions Your [...] Following Appointments Follow Up with PAWAN HAWLEY, AZAM Mckeon When: Where: [facility] [address], [place] [address]- Medications What How Much When Instructions Unchanged [...] Avoid eati (more content not included)... Normal [facility] Patient Educationon 09-01-20 Patient Education [...] Rhubarb. ? Beets. ? Potato chips and argentine fries. ? Nuts. ? If you regularly take a diuretic medicine, make sure to eat at least 1?2 fruits or vegetables high in potassium each day. These include: ? Avocado. ? Banana. ? [place], prune, carrot, or tomato juice. ? Baked [...] Salad dr (more content not included)... Normal [facility] Office/Clinic Noteon 09-01-2022 Urology Office/Clinic Note Chief Complaint kidney stones HPI Staff Referral for kidney stones. Pt was seen at [facility] 07/04/22 for right flank pain radiating to the abdomen with nausea. CT done shows bilateral nephrolithiasis but unremarkable ureters. Pt was recently treated for UTI and states that her inside sales advisor said her tissue around the urethra looked [...] for kidney stones. Pt was seen at [facility] 07/04/22 for right flank pain radiating [...] Pt was recently treated for UTI by inside sales advisor. UA today negative for blood and infection. Discussed pain could be due to small stone passing. Pt denies difficulty with urination. High fluid intake should help with dysuria. Follow-up With When Contact Information PAWAN HAWLEY, Roney Kumar, URL [facility] [address], [place] [address]- Additional Instructions: f/u 3 mos w/KUB, met [...] in bruce (more content not included)... Normal [facility] Comment on above: Result Comment: Elec tronically Signed By: PAWAN HAWLEY, Roney R\.br\Date and Time Signed: 09/01/22 13:31 EST\.br\Electronically Co-Signed By: Jennifer Griffiths\.br\Date and Time Co-Signed: 09/01/22 13:30 EST CULTURE URINEon 08-02-2022 CULTURE URINE Isolate 1 [...] <=0.12 S F Nitrofurantoin <=16 S F Trimethoprim/Sulfamethoxazol e <=20 S F Normal [facility] Comment on above: Performed By: #### N A24U, [id number] #### [facility] [address] [address] [address] Manjinder Forman LIPID PROFILEon 07-30-2022 CHOL-HDL RATIO NORM SEE BELOW Normal [facility] Comment on above: Result Comment: 3.3 - 4.4 LOW RISK 4.4 - 7.1 AVERAGE RISK 7.1 - 11.0 MODERATE RISK >11.0 HIGH RISK Performed By: #### N A24U, [id number] #### [facility] [address] [address] [address] Manjinder Forman Cholesterol [Mass/Vol] 220 mg/dL Critically high <=200 [facility] Comment on above: Performed By: #### N A24U, [id number] #### [facility] [address] [address] [address] Manjinder Forman Cholesterol in HDL [Mass/Vol] 89 mg/dL Critically high 40-60 [facility] Comment on above: Performed By: #### N A24U, [id number] #### [facility] [address] [address] [address] Manjinder Forman Cholesterol in LDL [Mass/Vol] 117.6 mg/dL Normal [facility] Comment on above: Performed By: #### N A24U, [id number] #### [facility] [address] [address] [address] Manjinder Forman Cholesterol.total/ Cholesterol in HDL [Mass ratio] 2.5 {ratio} Normal [facility] Comment on above: Performed By: #### N A24U, [id number] #### [facility] [address] [address] [address] Manjinder Forman HDL NORMAL > or = 60 mg/dl - LO W CARDIOVASCULAR RISK <40 mg/dl - HIGH CARDIOVASCULAR RISK Normal [facility] Comment on above: Performed By: #### N A24U, [id number] #### [facility] [address] [address] [address] Manjinder Forman LDL CALC NORMAL SEE BELOW Normal [facility] Comment on above: Result Comment: <100 mg/dl OPTIMAL 100 - 129 mg/dl NEAR OR ABOVE OPTIMAL 130 - 159 mg/dl BORDERLINE HIGH 160 - 189 mg/dl HIGH >190 mg/dl VERY HIGH Performed By: #### N A24U, [id number] #### [facility] [address] [place] [address] Dr. Manjinder Forman Triglyceride [Mass/Vol] 67 mg/dL Normal <=150 [facility] Comment on above: Performed By: #### N A24U, [id number] #### [facility] [address] [place] [address] Dr. Manjinder Forman VLDL CALC 13.4 mg/dL Normal [facility] Comment on above: Performed By: #### N A24U, [id number] #### [facility] [address] [place] [address] Dr. Manjinder Forman UA RANDOM W/MICROSCOPICon BACTERIA NONE SEEN Normal NONE SEEN [facility] Comment on above: Performed By: #### N A24U, [id number] #### [facility] [address] [place] [address] Dr. Manjinder Forman Bilirubin Ql (U) Negative Normal NEGATIVE [facility] Comment on above: Performed By: #### N A24U, [id number] #### [facility] [address] [place] [address] Dr. Manjinder Forman CAST NONE SEEN Normal NONE SEEN [facility] Comment on above: Performed By: #### N A24U, [id number] #### [facility] [address] [place] [address] Dr. Manjinder Forman Clarity (U) CLEAR Normal CLEAR [facility] Comment on above: Performed By: #### N A24U, [id number] #### [facility] [address] [place] [address] Dr. Manjinder Forman Color (U) LT. YELLOW Normal YELLOW [facility] Comment on above: Performed By: #### N A24U, [id number] #### [facility] [address] [place] [address] Dr. Manjinder Forman Crystals LM Nom (Urine sed) NONE SEEN Normal NONE SEEN [facility] Comment on above: Performed By: #### N A24U, [id number] #### [facility] [address] [place] [address] Dr. Manjinedr Forman Epithelial cells LM Ql (Urine sed) RARE Normal NONE SEEN /RARE [facility] Comment on above: Performed By: #### N A24U, [id number] #### [facility] [address] [address] [address] Manjinder Forman Glucose Ql (U) Negative Normal NEGATIVE [facility] Comment on above: Performed By: #### N A24U, [id number] #### [facility] [address] [place] [address] Dr. Manjinder Forman Hemoglobin Ql (U) Negative Normal NEGATIVE [facility] Comment on above: Performed By: #### N A24U, [id number] #### [facility] [address] [place] [address] Dr. Manjinder Forman Ketones Ql (U) Negative Normal NEGATIVE [facility] Comment on above: Performed By: #### N A24U, [id number] #### [facility] [address] [place] [address] Dr. Manjinder Forman LEUKOCYTES Negative Normal NEGATIVE [facility] Comment on above: Performed By: #### N A24U, [id number] #### [facility] [address] [place] [address] Dr. Manjinder Forman MUCOUS NONE SEEN Normal NONE SEEN [facility] Comment on above: Performed By: #### N A24U, [id number] #### [facility] [address] [place] [address] Dr. Manjinder Forman Nitrite Ql (U) Negative Normal NEGATIVE [facility] Comment on above: Performed By: #### N A24U, [id number] #### [facility] [address] [place] [address] Dr. Manjinder Forman pH (U) 7.0 [pH] Normal 5-9 [facility] Comment on above: Performed By: #### N A24U, [id number] #### [facility] [address] [address] [address] Manjinder Forman RBC 0-2 Normal 0-2 [facility] Comment on above: Performed By: #### N A24U, [id number] #### [facility] [address] [address] [address] Manjinder Forman SPEC GRAVITY 1.010 Normal 1.005-<=1. 025 [facility] Comment on above: Performed By: #### N A24U, [id number] #### [facility] [address] [place] [address] Dr. Manjinder Forman UA PROTEIN Negative Normal NEGATIVE/ TRACE [facility] Comment on above: Performed By: #### N A24U, [id number] #### [facility] [address] [place] [address] Dr. Manjinder Forman Urobilinogen Qn (U) 0.2 {Gabi'U}/dL Normal 0.2 - 1.0 [facility] Comment on above: Performed By: #### N A24U, [id number] #### [facility] [address] [place] [address] Dr. Manjinder Forman WBC NONE SEEN Normal NONE SEEN [facility] Comment on above: Performed By: #### N A24U, [id number] #### [facility] [address] [place] [address] Dr. Manjinder Forman Quick Strepon 07-18-2022 S. pyogenes Org specific cx Ql (Throat) Negative [employer] Other Quick Strep [employer] [facility] frents Other CBC AUTO DIFFon 07-06-2022 BASO # 0.0 103/ul Normal 0.0-0.1 [facility] Comment on above: Performed By: #### H STROPN, CMP #### [facility] [address] [place] [address] Dr. Manjinder Forman Basophils/100 WBC (Bld) 0.0 % Critically low 0.2-2.0 [facility] Comment on above: Performed By: #### H STROPN, CMP #### [facility] [address] [place] [address] Dr. Manjinder Forman EO # 0.0 103/ul Normal 0.0-0.7 [facility] Comment on above: Performed By: #### H STROPN, CMP #### [facility] [address] [place] [address] Dr. Manjinder Forman Eosinophils/100 WBC (Bld) 0.0 % Critically low 0.9-7.0 [facility] Comment on above: Performed By: #### H STROPN, CMP #### [facility] [address] [place] [address] Dr. Manjinder Forman Erythrocyte distribution width (RBC) [Ratio] 12.0 % Normal 11.0-15.0 [facility] Comment on above: Performed By: #### H STROPN, CMP #### [facility] [address] [place] [address] Dr. Manjinder Forman Hematocrit (Bld) [Volume fraction] 38.0 % Normal 36.0-48.0 [facility] Comment on above: Performed By: #### H STROPN, CMP #### [facility] [address] [place] [address] Dr. Manjinder Forman Hemoglobin (Bld) [Mass/Vol] 12.2 g/dL Normal 12.0-16.0 [facility] Comment on above: Performed By: #### H STROPN, CMP #### [facility] [address] [place] [address] Dr. Manjinder Forman IG # 0.01 10e3/ul Normal 0.00-0.03 [facility] Comment on above: Performed By: #### H STROPN, CMP #### [facility] [address] [place] [address] Dr. Manjinder Forman IG % 0.2 % Normal 0.0-0.5 [facility] Comment on above: Performed By: #### H STROPN, CMP #### [facility] [address] [place] [address] Dr. Manjinder Forman LYMPH # 0.5 103/ul Critically low 1.2-3.8 [facility] Comment on above: Performed By: #### H JUANPN, CMP #### [facility] [address] [place] [address] Dr. Manjinder Forman Lymphocytes/100 WBC (Bld) 11.8 % Critically low 20.5-60.0 [facility] Comment on above: Performed By: #### H STROPN, CMP #### [facility] [address] [place] [address] Dr. Manjinder Forman MANUAL DIFF REQ NO Normal [facility] Comment on above: Performed By: #### H JUANPN, CMP #### [facility] [address] [place] [address] Dr. Manjinder Forman MCH (RBC) [Entitic mass] 30.4 pg Normal 26.7-34.0 [facility] Comment on above: Performed By: #### H RON, CMP #### [facility] [address] [place] [address] Dr. Manjinder Forman MCHC (RBC) [Mass/Vol] 32.1 g/dL Normal 29.9-35.2 [facility] Comment on above: Performed By: #### H RON, CMP #### [facility] [address] [place] [address] Dr. Manjinder Forman MCV (RBC) [Entitic vol] 94.8 fL Normal 81.0-99.0 [facility] Comment on above: Performed By: #### H STROPN, CMP #### [facility] [address] [place] [address] Dr. Manjinder Forman MONO # 0.2 103/ul Critically low 0.3-0.8 [facility] Comment on above: Performed By: #### H STROPN, CMP #### [facility] [address] [place] [address] Dr. Manjinder Forman Monocytes/100 WBC (Bld) 3.7 % Normal 1.7-12.0 [facility] Comment on above: Performed By: #### H STROPN, CMP #### [facility] [address] [address] [address] Manjinder Forman NEUT # 3.4 103/ul Normal 1.4-6.5 [facility] Comment on above: Performed By: #### H RON, CMP #### [facility] [address] [address] [address] Manjinder Forman Neutrophils/100 WBC (Bld) 84.3 % Critically high 43.0-75.0 [facility] Comment on above: Performed By: #### H RON, CMP #### [facility] [address] [address] [address] Manjinder Forman Platelet mean volume (Bld) [Entitic vol] 11.1 fL Normal 9.5-13.5 [facility] Comment on above: Performed By: #### H RON, CMP #### [facility] [address] [place] [address] Dr. Manjinder Forman PLT 143 103/ul Critically low 150-450 [facility] Comment on above: Performed By: #### H RON, CMP #### [facility] [address] [place] [address] Dr. Manjinder Forman RBC 4.01 106/ul Critically low 4.20-5.40 [facility] Comment on above: Performed By: #### H RON, CMP #### [facility] [address] [place] [address] Dr. Manjinder Forman WBC 4.1 103/ul Normal 4.0-11.0 [facility] Comment on above: Performed By: #### H RON, CMP #### [facility] [address] [place] [address] Dr. Manjinder Forman PROF 14(COMP METB)on 022 Albumin [Mass/Vol] 3.3 g/dL Critically low 3.4-5.0 [facility] Comment on above: Performed By: #### N A24U, [id number] #### [facility] [address] [place] [address] Dr. Manjinder Forman Albumin/Globulin [Mass ratio] 0.9 {ratio} Normal [facility] Comment on above: Performed By: #### N A24U, [id number] #### [facility] [address] [place] [address] Dr. Manjinder Forman ALP [Catalytic activity/Vol] 75 U/L Normal 46-116 [facility] Comment on above: Performed By: #### N A24U, [id number] #### [facility] [address] [place] [address] Dr. Manjinder Forman ALT [Catalytic activity/Vol] 39 U/L Normal 14-59 [facility] Comment on above: Performed By: #### N A24U, [id number] #### [facility] [address] [place] [address] Dr. Manjinder Forman Anion gap [Moles/Vol] 13.9 mmol/L Normal [facility] Comment on above: Performed By: #### N A24U, [id number] #### [facility] [address] [place] [address] Dr. Manjinder Forman AST [Catalytic activity/Vol] 25 U/L Normal 15-37 [facility] Comment on above: Performed By: #### N A24U, [id number] #### [facility] [address] [place] [address] Dr. Manjinder Forman Bilirubin [Mass/Vol] 0.3 mg/dL Normal 0.2-1.0 [facility] Comment on above: Performed By: #### N A24U, [id number] #### [facility] [address] [place] [address] Dr. Manjinder Forman Calcium [Mass/Vol] 8.3 mg/dL Critically low 8.5-10.1 Th e [facility] Comment on above: Performed By: #### N A24U, [id number] #### [facility] [address] [place] [address] Dr. Manjinder Forman Chloride [Moles/Vol] 105 mmol/L Normal 98-107 [facility] Comment on above: Performed By: #### N A24U, [id number] #### [facility] [address] [place] [address] Dr. Manjinder Forman CO2 [Moles/Vol] 22.3 mmol/L Normal 21.0-32.0 [facility] Comment on above: Performed By: #### N A24U, [id number] #### [facility] [address] [place] [address] Dr. Manjinder Forman Creatinine [Mass/Vol] 0.76 mg/dL Normal 0.55-1.02 [facility] Comment on above: Performed By: #### N A24U, [id number] #### [facility] [address] [place] [address] Dr. Manjinder Forman EGFR-AF TUVALUAN >60 Normal >=60 [facility] Comment on above: Performed By: #### N A24U, [id number] #### [facility] [address] [place] [address] Dr. Manjinder Forman EGFR-NON AF TUVALUAN >60 Normal >=60 [facility] Comment on above: Performed By: #### N A24U, [id number] #### [facility] [address] [place] [address] Dr. Manjinder Forman Globulin (S) [Mass/Vol] 3.6 g/dL Normal [facility] Comment on above: Performed By: #### N A24U, [id number] #### [facility] [address] [place] [address] Dr. Manjinder Forman Glucose [Mass/Vol] 125 mg/dL Critically high 74-106 [facility] Comment on above: Performed By: #### N A24U, [id number] #### [facility] [address] [place] [address] Dr. Manjinder Forman Potassium [Moles/Vol] 4.2 mmol/L Normal 3.5-5.1 [facility] Comment on above: Performed By: #### N A24U, [id number] #### [facility] [address] [place] [address] Dr. Manjinder Forman Protein [Mass/Vol] 6.9 g/dL Normal 6.4-8.2 The [facility] Comment on above: Performed By: #### N A24U, [id number] #### [facility] [address] [place] [address] Dr. Manjinder Forman Sodium [Moles/Vol] 137 mmol/L Normal 136-145 [facility] Comment on above: Performed By: #### N A24U, [id number] #### [facility] [address] [place] [address] Dr. Manjinder Forman Urea nitrogen [Mass/Vol] 12.0 mg/dL Normal 7.0-18.0 [facility] Comment on above: Performed By: #### N A24U, [id number] #### [facility] [address] [place] [address] Dr. Manjinder Forman Urea nitrogen/Creatinin e [Mass ratio] 15.8 mg/mg Normal [facility] Comment on above: Performed By: #### N A24U, [id number] #### [facility] [address] [place] [address] Dr. Manjinder Forman CBC AUTO DIFFon 07-05-2022 BASO # 0.0 103/ul Normal 0.0-0.1 [facility] Comment on above: Performed By: #### N A24U, [id number] #### [facility] [address] [place] [address] Dr. Manjinder Forman Basophils/100 WBC (Bld) 0.2 % Normal 0.2-2.0 [facility] Comment on above: Performed By: #### N A24U, [id number] #### [facility] [address] [place] [address] Dr. Manjinder Forman EO # 0.0 103/ul Normal 0.0-0.7 [facility] Comment on above: Performed By: #### N A24U, [id number] #### [facility] [address] [place] [address] Dr. Manjinder Forman Eosinophils/100 WBC (Bld) 0.2 % Critically low 0.9-7.0 [facility] Comment on above: Performed By: #### N A24U, [id number] #### [facility] [address] [place] [address] Dr. Manjinder Forman Erythrocyte distribution width (RBC) [Ratio] 11.9 % Normal 11.0-15.0 [facility] Comment on above: Performed By: #### N A24U, [id number] #### [facility] [address] [place] [address] Dr. Manjinder Forman Hematocrit (Bld) [Volume fraction] 39.1 % Normal 36.0-48.0 [facility] Comment on above: Performed By: #### N A24U, [id number] #### [facility] [address] [place] [address] Dr. Manjinder Forman Hemoglobin (Bld) [Mass/Vol] 12.7 g/dL Normal 12.0-16.0 [facility] Comment on above: Performed By: #### N A24U, [id number] #### [facility] [address] [place] [address] Dr. Manjinder Forman IG # 0.01 10e3/ul Normal 0.00-0.03 [facility] Comment on above: Performed By: #### N A24U, [id number] #### [facility] [address] [place] [address] Dr. Manjinder Forman IG % 0.2 % Normal 0.0-0.5 [facility] Comment on above: Performed By: #### N A24U, [id number] #### [facility] [address] [place] [address] Dr. Manjinder Forman LYMPH # 1.1 103/ul Critically low 1.2-3.8 [facility] Comment on above: Performed By: #### N A24U, [id number] #### [facility] [address] [place] [address] Dr. Manjinder Forman Lymphocytes/100 WBC (Bld) 21.0 % Normal 20.5-60.0 [facility] Comment on above: Performed By: #### N A24U, [id number] #### [facility] [address] [place] [address] Dr. Manjinder Forman MANUAL DIFF REQ NO Normal [facility] Comment on above: Performed By: #### N A24U, [id number] #### [facility] [address] [place] [address] Dr. Manjinder Forman MCH (RBC) [Entitic mass] 30.7 pg Normal 26.7-34.0 [facility] Comment on above: Performed By: #### N A24U, [id number] #### [facility] [address] [place] [address] Dr. Manjinder Forman MCHC (RBC) [Mass/Vol] 32.5 g/dL Normal 29.9-35.2 [facility] Comment on above: Performed By: #### N A24U, [id number] #### [facility] [address] [place] [address] Dr. Manjinder Forman MCV (RBC) [Entitic vol] 94.4 fL Normal 81.0-99.0 [facility] Comment on above: Performed By: #### N A24U, [id number] #### [facility] [address] [place] [address] Dr. Manjinder Forman MONO # 0.8 103/ul Normal 0.3-0.8 [facility] Comment on above: Performed By: #### N A24U, [id number] #### [facility] [address] [place] [address] Dr. Manjinder Forman Monocytes/100 WBC (Bld) 14.9 % Critically high 1.7-12.0 [facility] Comment on above: Performed By: #### N A24U, [id number] #### [facility] [address] [place] [address] Dr. Manjinder Forman NEUT # 3.3 103/ul Normal 1.4-6.5 [facility] Comment on above: Performed By: #### N A24U, [id number] #### [facility] [address] [place] [address] Dr. Manjinder Forman Neutrophils/100 WBC (Bld) 63.5 % Normal 43.0-75.0 [facility] Comment on above: Performed By: #### N A24U, [id number] #### [facility] [address] [address] [address] Manjinder Forman Platelet mean volume (Bld) [Entitic vol] 11.1 fL Normal 9.5-13.5 [facility] Comment on above: Performed By: #### N A24U, [id number] #### [facility] [address] [address] [address] Manjinder Forman PLT 150 103/ul Normal 150-450 [facility] Comment on above: Performed By: #### N A24U, [id number] #### [facility] [address] [place] [address] Dr. Manjinder Forman RBC 4.14 106/ul Critically low 4.20-5.40 [facility] Comment on above: Performed By: #### N A24U, [id number] #### [facility] [address] [address] [address] Manjinder Forman WBC 5.2 103/ul Normal 4.0-11.0 [facility] Comment on above: Performed By: #### N A24U, [id number] #### [facility] [address] [place] [address] Dr. Manjinder Forman D-DIMERon 07-05-2022 D-DIMER 0.21 mg/L FEU Normal <=0.59 [facility] Comment on above: Performed By: #### D DIM #### [facility] [address] [place] [address] Dr. Manjinder Fomran D-DIMER COMMENTS SEE BELOW Normal [facility] Comment on above: Result Comment: Incr eases [...] hospitalization. Performed By: #### D DIM #### [facility] [address] [place] [address] Dr. Manjinder Forman LACTATE/LACTIC ACIDon 2021 Lactate [Moles/Vol] 0.6 mmol/L Normal 0.4-1.9 [facility] Comment on above: Performed By: #### H STROPN, CMP #### [facility] [address] [place] [address] Dr. Manjinder Forman PROF 14(COMP METB)on 022 Albumin [Mass/Vol] 3.4 g/dL Normal 3.4-5.0 [facility] Comment on above: Performed By: #### H STROPN, CMP #### [facility] [address] [place] [address] Dr. Manjinder Forman Albumin/Globulin [Mass ratio] 1.0 {ratio} Normal [facility] Comment on above: Performed By: #### H STROPN, CMP #### [facility] [address] [place] [address] Dr. Manjinder Forman ALP [Catalytic activity/Vol] 81 U/L Normal 46-116 [facility] Comment on above: Performed By: #### H STROPN, CMP #### [facility] [address] [place] [address] Dr. Manjinder Forman ALT [Catalytic activity/Vol] 37 U/L Normal 14-59 [facility] Comment on above: Performed By: #### H STROPN, CMP #### [facility] [address] [place] [address] Dr. Manjinder Forman Anion gap [Moles/Vol] 10.9 mmol/L Normal [facility] Comment on above: Performed By: #### H STROPN, CMP #### [facility] [address] [place] [address] Dr. Manjinder Forman AST [Catalytic activity/Vol] 25 U/L Normal 15-37 [facility] Comment on above: Performed By: #### H STROPN, CMP #### [facility] [address] [address] [address] Manjinder Forman Bilirubin [Mass/Vol] 0.5 mg/dL Normal 0.2-1.0 [facility] Comment on above: Performed By: #### H STROPN, CMP #### [facility] [address] [address] [address] Manjinder Forman Calcium [Mass/Vol] 8.4 mg/dL Critically low 8.5-10.1 [facility] Comment on above: Performed By: #### H STROPN, CMP #### [facility] [address] [address] [address] Manjinder Forman Chloride [Moles/Vol] 102 mmol/L Normal 98-107 [facility] Comment on above: Performed By: #### H STROPN, CMP #### [facility] [address] [place] [address] Dr. Manjinder Forman CO2 [Moles/Vol] 26.1 mmol/L Normal 21.0-32.0 [facility] Comment on above: Performed By: #### H STROPN, CMP #### [facility] [address] [place] [address] Dr. Manjinder Forman Creatinine [Mass/Vol] 0.92 mg/dL Normal 0.55-1.02 [facility] Comment on above: Performed By: #### H STROPN, CMP #### [facility] [address] [place] [address] Dr. Manjinder Forman EGFR-AF TUVALUAN >60 Normal >=60 [facility] Comment on above: Performed By: #### H STROPN, CMP #### [facility] [address] [place] [address] Dr. Manjinder Forman EGFR-NON AF TUVALUAN >60 Normal >=60 [facility] Comment on above: Performed By: #### H STROPN, CMP #### [facility] [address] [place] [address] Dr. Manjinder Forman Globulin (S) [Mass/Vol] 3.5 g/dL Normal [facility] Comment on above: Performed By: #### H STROPN, CMP #### [facility] [address] [address] [address] Manjinder Forman Glucose [Mass/Vol] 104 mg/dL Normal 74-106 [facility] Comment on above: Performed By: #### H STROPN, CMP #### [facility] [address] [address] [address] Manjinder Forman Potassium [Moles/Vol] 4.0 mmol/L Normal 3.5-5.1 [facility] Comment on above: Performed By: #### H STROPN, CMP #### [facility] [address] [address] [address] Manjinder Forman Protein [Mass/Vol] 6.9 g/dL Normal 6.4-8.2 [facility] Comment on above: Performed By: #### H STROPN, CMP #### [facility] [address] [address] [address] Manjinder Forman Sodium [Moles/Vol] 135 mmol/L Critically low 136-145 [facility] Comment on above: Performed By: #### H STROPN, CMP #### [facility] [address] [address] [address] Manjinder Forman Urea nitrogen [Mass/Vol] 18.0 mg/dL Normal 7.0-18.0 [facility] Comment on above: Performed By: #### H STROPN, CMP #### [facility] [address] [address] [address] Manjinder Forman Urea nitrogen/Creatinin e [Mass ratio] 19.6 mg/mg Normal [facility] Comment on above: Performed By: #### H STROPN, CMP #### [facility] [address] [address] [address] Manjinder Forman TROPONIN, HIGH SENSITIVITYon 07-05-2022 HSTROP <4.0 Normal 4.0-51.3 [facility] Comment on above: Result Comment: CUT- OFF POINTS HAVE BEEN ESTABLISHED BASED ON THE FOURTH UNIVERSAL DEFINITIONS OF MYOCARDIAL INFARCTION. THE UPPER REFERENCE LIMIT (URL) OF TROPONIN, DEFINED THE 99TH PERCENTILE OF cTnI DISTRIBUTION IN A REFERENCE POPULATION, HAS BEEN CONFIRMED THE DECISION THRESHOLD FOR [place] DIAGNOSIS. Performed By: #### H STROPN, CMP #### [facility] [address] [address] [address] Manjinder Forman XR CHEST 1 Von [...] JANA MARTIN Date: 2022-07-05 20:24 Normal [facility] CBC AUTO DIFFon 07-04-2022 BASO # 0.0 103/ul Normal 0.0-0.1 [facility] Comment on above: Performed By: #### D DIM #### [facility] [address] [place] [address] Dr. Manjinder Forman Basophils/100 WBC (Bld) 0.2 % Normal 0.2-2.0 [facility] Comment on above: Performed By: #### D DIM #### [facility] [address] [address] [address] Manjinder Forman EO # 0.0 103/ul Normal 0.0-0.7 [facility] Comment on above: Performed By: #### D DIM #### [facility] [address] [place] [address] Dr. Manjinder Forman Eosinophils/100 WBC (Bld) 0.2 % Critically low 0.9-7.0 [facility] Comment on above: Performed By: #### D DIM #### [facility] [address] [place] [address] Dr. Manjinder Forman Erythrocyte distribution width (RBC) [Ratio] 12.2 % Normal 11.0-15.0 [facility] Comment on above: Performed By: #### D DIM #### [facility] [address] [place] [address] Dr. Manjinder Forman Hematocrit (Bld) [Volume fraction] 39.9 % Normal 36.0-48.0 [facility] Comment on above: Performed By: #### D DIM #### [facility] [address] [address] [address] Manjinder Forman Hemoglobin (Bld) [Mass/Vol] 12.9 g/dL Normal 12.0-16.0 [facility] Comment on above: Performed By: #### D DIM #### [facility] [address] [address] [address] Manjinder Forman IG # 0.02 10e3/ul Normal 0.00-0.03 [facility] Comment on above: Performed By: #### D DIM #### [facility] [address] [place] [address] Dr. Manjinder Forman IG % 0.4 % Normal 0.0-0.5 [facility] Comment on above: Performed By: #### D DIM #### [facility] [address] [place] [address] Dr. Manjinder Forman LYMPH # 1.1 103/ul Critically low 1.2-3.8 [facility] Comment on above: Performed By: #### D DIM #### [facility] [address] [place] [address] Dr. Manjinder Forman Lymphocytes/100 WBC (Bld) 21.4 % Normal 20.5-60.0 [facility] Comment on above: Performed By: #### D DIM #### [facility] [address] [place] [address] Dr. Manjinder Forman MANUAL DIFF REQ NO Normal [facility] Comment on above: Performed By: #### D DIM #### [facility] [address] [place] [address] Dr. Manjinder Forman MCH (RBC) [Entitic mass] 30.6 pg Normal 26.7-34.0 [facility] Comment on above: Performed By: #### D DIM #### [facility] [address] [place] [address] Dr. Manjinder Forman MCHC (RBC) [Mass/Vol] 32.3 g/dL Normal 29.9-35.2 [facility] Comment on above: Performed By: #### D DIM #### [facility] [address] [address] [address] Manjinder Forman MCV (RBC) [Entitic vol] 94.8 fL Normal 81.0-99.0 [facility] Comment on above: Performed By: #### D DIM #### [facility] [address] [address] [address] Manjinder Forman MONO # 1.0 103/ul Critically high 0.3-0.8 [facility] Comment on above: Performed By: #### D DIM #### [facility] [address] [address] [address] Manjinder Forman Monocytes/100 WBC (Bld) 18.8 % Critically high 1.7-12.0 [facility] Comment on above: Performed By: #### D DIM #### [facility] [address] [place] [address] Dr. Manjinder Forman NEUT # 3.1 103/ul Normal 1.4-6.5 [facility] Comment on above: Performed By: #### D DIM #### [facility] [address] [place] [address] Dr. Manjinder Forman Neutrophils/100 WBC (Bld) 59.0 % Normal 43.0-75.0 [facility] Comment on above: Performed By: #### D DIM #### [facility] [address] [place] [address] Dr. Manjinder Forman Platelet mean volume (Bld) [Entitic vol] 10.6 fL Normal 9.5-13.5 [facility] Comment on above: Performed By: #### D DIM #### [facility] [address] [place] [address] Dr. Manjinder Forman PLT 184 103/ul Normal 150-450 [facility] Comment on above: Performed By: #### D DIM #### [facility] [address] [address] [address] Manjinder Forman RBC 4.21 106/ul Normal 4.20-5.40 [facility] Comment on above: Performed By: #### D DIM #### [facility] [address] [place], [place] [address] Dr. Manjinder Forman WBC 5.3 103/ul Normal 4.0-11.0 [facility] Comment on above: Performed By: #### D DIM #### [facility] [address] [address] [address] ABD/PELVIS WO CONon 07-04 CT ABD/PELVIS WO CON EXAMINATION: CT ABD/PELVIS WO CON HISTORY: CALCULUS OF KIDNEY ; [...] CHIDI MORALES Date: 2022-07-04 10:16 Normal [facility] Covid-19 PCR (CVDTBH)on SARS-CoV-2 (COVID-19) RNA KEN+probe Ql (Unsp spec) Detected Critically abnormal NOT DETECTED [facility] Comment on above: Result Comment: This test is not yet approved or cleared by the [place] FDA. When there are no FDA-approved or cleared tests available, and other criteria are met, FDA can make tests available under an emergency access mechanism called an Emergency Use Authorization (EUA). The EUA for this test is supported by the Foreign Language [employer] of Health and Human Service's declaration that [...] Performed By: #### H STROPN, CMP #### [facility] [address] [place] [address] Dr. Manjinder Forman ER URINE PROFILEon 2 Bilirubin Ql (U) Negative Normal NEGATIVE [facility] Comment on above: Performed By: #### D DIM #### [facility] [address] [place] [address] Dr. Manjinder Forman Clarity (U) CLEAR Normal CLEAR [facility] Comment on above: Performed By: #### D DIM #### [facility] [address] [place] [address] Dr. Manjinder Forman Color (U) LT. YELLOW Normal YELLOW [facility] Comment on above: Performed By: #### D DIM #### [facility] [address] [place] [address] Dr. Manjinder Forman ERUAHD A micrscopic examina tion will be performed if indicated. Normal [facility] Comment on above: Performed By: #### D DIM #### [facility] [address] [place] [address] Dr. Manjinder Forman Glucose Ql (U) Negative Normal NEGATIVE [facility] Comment on above: Performed By: #### D DIM #### [facility] [address] [place] [address] Dr. Manjinder Forman Hemoglobin Ql (U) Negative Normal NEGATIVE [facility] Comment on above: Performed By: #### D DIM #### [facility] [address] [place] [address] Dr. Manjinder Forman Ketones Ql (U) Negative Normal NEGATIVE [facility] Comment on above: Performed By: #### D DIM #### [facility] [address] [place] [address] Dr. Manjinder Forman LEUKOCYTES Negative Normal NEGATIVE [facility] Comment on above: Performed By: #### D DIM #### [facility] [address] [place] [address] Dr. Manjinder Forman Nitrite Ql (U) Negative Normal NEGATIVE [facility] Comment on above: Performed By: #### D DIM #### [facility] [address] [place] [address] Dr. Manjinder Forman pH (U) 6.0 [pH] Normal 5-9 [facility] Comment on above: Performed By: #### D DIM #### [facility] [address] [place] [address] Dr. Manjinder Forman SPEC GRAVITY <=1.005 Abnormal 1.005-<=1. 025 [facility] Comment on above: Performed By: #### D DIM #### [facility] [address] [place] [address] Dr. Manjinder Forman UA PROTEIN Negative Normal NEGATIVE/ TRACE [facility] Comment on above: Performed By: #### D DIM #### [facility] [address] [place] [address] Dr. Manjinder Forman UR MICRO IND NOT INDICATED Normal [facility] Comment on above: Performed By: #### D DIM #### [facility] [address] [place] [address] Dr. Manjinder Forman Urobilinogen Qn (U) 0.2 {Gabi'U}/dL Normal 0.2 - 1.0 [facility] Comment on above: Performed By: #### D DIM #### [facility] [address] [place] [address] Dr. Manjinder Forman GROUP A STREP CULTUREon S. pyogenes Ag Ql (Unsp spec) Culture Observations: NEGATIVE FOR GROUP A STREPTOCOCCUS. Normal [facility] Comment on above: Performed By: #### G RASTCX, SSCRN #### [facility] [address] [place] [address] Dr. Manjinder Forman INFLUENZA A AND B AGon 07-04 INFLUENZA A AG Negative Normal NEGATIVE SEE COMMENT [facility] Comment on above: Performed By: #### D DIM #### [facility] [address] [place] [address] Dr. Manjinder Forman INFLUENZA B AG Negative Normal NEGATIVE SEE COMMENT [facility] Comment on above: Performed By: #### D DIM #### [facility] [address] [place] [address] Dr. Manjinder Forman INTERNAL CONTROLS Within Normal Limits Normal Wi thin Normal Limits [facility] Comment on above: Performed By: #### D DIM #### [facility] [address] [place] [address] Dr. Manjinder Forman PROF 14(COMP METB)on 022 Albumin [Mass/Vol] 3.7 g/dL Normal 3.4-5.0 [facility] Comment on above: Performed By: #### N A24U, [id number] #### [facility] [address] [place] [address] Dr. Manjinder Forman Albumin/Globulin [Mass ratio] 1.1 {ratio} Normal [facility] Comment on above: Performed By: #### N A24U, [id number] #### [facility] [address] [place] [address] Dr. Manjinder Forman ALP [Catalytic activity/Vol] 84 U/L Normal 46-116 [facility] Comment on above: Performed By: #### N A24U, [id number] #### [facility] [address] [place] [address] Dr. Manjinder Forman ALT [Catalytic activity/Vol] 37 U/L Normal 14-59 [facility] Comment on above: Performed By: #### N A24U, [id number] #### [facility] [address] [place] [address] Dr. Manjinder Forman Anion gap [Moles/Vol] 10.5 mmol/L Normal [facility] Comment on above: Performed By: #### N A24U, [id number] #### [facility] [address] [place] [address] Dr. Manjinder Forman AST [Catalytic activity/Vol] 25 U/L Normal 15-37 [facility] Comment on above: Performed By: #### N A24U, [id number] #### [facility] [address] [place] [address] Dr. Manjinder Forman Bilirubin [Mass/Vol] 0.2 mg/dL Normal 0.2-1.0 [facility] Comment on above: Performed By: #### N A24U, [id number] #### [facility] [address] [place] [address] Dr. Manjinder Forman Calcium [Mass/Vol] 8.6 mg/dL Normal 8.5-10.1 [facility] Comment on above: Performed By: #### N A24U, [id number] #### [facility] [address] [place] [address] Dr. Manjinder Forman Chloride [Moles/Vol] 103 mmol/L Normal 98-107 [facility] Comment on above: Performed By: #### N A24U, [id number] #### [facility] [address] [place] [address] Dr. Manjinder Forman CO2 [Moles/Vol] 26.9 mmol/L Normal 21.0-32.0 [facility] Comment on above: Performed By: #### N A24U, [id number] #### [facility] [address] [place] [address] Dr. Manjinder Forman Creatinine [Mass/Vol] 0.94 mg/dL Normal 0.55-1.02 [facility] Comment on above: Performed By: #### N A24U, [id number] #### [facility] [address] [place] [address] Dr. Manjinder Forman EGFR-AF TUVALUAN >60 Normal >=60 [facility] Comment on above: Performed By: #### N A24U, [id number] #### [facility] [address] [place] [address] Dr. Manjinder Forman EGFR-NON AF TUVALUAN >60 Normal >=60 [facility] Comment on above: Performed By: #### N A24U, [id number] #### [facility] [address] [place] [address] Dr. Manjinder Forman Globulin (S) [Mass/Vol] 3.4 g/dL Normal [facility] Comment on above: Performed By: #### N A24U, [id number] #### [facility] [address] [place] [address] Dr. Manjinder Forman Glucose [Mass/Vol] 95 mg/dL Normal 74-106 [facility] Comment on above: Performed By: #### N A24U, [id number] #### [facility] [address] [place] [address] Dr. Manjinder Forman Potassium [Moles/Vol] 4.4 mmol/L Normal 3.5-5.1 [facility] Comment on above: Performed By: #### N A24U, [id number] #### [facility] [address] [place] [address] Dr. Manjinder Forman Protein [Mass/Vol] 7.1 g/dL Normal 6.4-8.2 [facility] Comment on above: Performed By: #### N A24U, [id number] #### [facility] [address] [place] [address] Dr. Manjinder Forman Sodium [Moles/Vol] 136 mmol/L Normal 136-145 [facility] Comment on above: Performed By: #### N A24U, [id number] #### [facility] [address] [place] [address] Dr. Manjinder Forman Urea nitrogen [Mass/Vol] 8.0 mg/dL Normal 7.0-18.0 [facility] Comment on above: Performed By: #### N A24U, [id number] #### [facility] [address] [place] [address] Dr. Manjinder Forman Urea nitrogen/Creatinin e [Mass ratio] 8.5 mg/mg Normal [facility] Comment on above: Performed By: #### N A24U, [id number] #### [facility] [address] [place] [address] Dr. Manjinder Forman STREPT SCREENon 07-04-2022 STREP SCREEN A Negative Normal NEGATIVE [facility] Comment on above: Performed By: #### G RASTCX, SSCRN #### [facility] [address] [place] [address] Dr. Manjinder Forman UA RANDOM W/MICROSCOPICon BACTERIA NONE SEEN Normal NONE SEEN [facility] Comment on above: Performed By: #### H STROPN, CMP #### [facility] [address] [place] [address] Dr. Manjinder Forman Bilirubin Ql (U) Negative Normal NEGATIVE [facility] Comment on above: Performed By: #### H STROPN, CMP #### [facility] [address] [place] [address] Dr. Manjinder Forman CAST NONE SEEN Normal NONE SEEN [facility] Comment on above: Performed By: #### H STROPN, CMP #### [facility] [address] [place] [address] Dr. Manjinder Forman Clarity (U) CLEAR Normal CLEAR [facility] Comment on above: Performed By: #### H STROPN, CMP #### [facility] [address] [place] [address] Dr. Manjinder Forman Color (U) LT. YELLOW Normal YELLOW The [facility] Comment on above: Performed By: #### H STROPN, CMP #### [facility] [address] [place] [address] Dr. Manjinder Forman Crystals LM Nom (Urine sed) NONE SEEN Normal NONE SEEN The [facility] Comment on above: Performed By: #### H STROPN, CMP #### [facility] [address] [place] [address] Dr. Manjinder Forman Epithelial cells LM Ql (Urine sed) MODERATE Abnormal NONE SEEN /RARE The [facility] Comment on above: Performed By: #### H STROPN, CMP #### [facility] [address] [place] [address] Dr. Manjinder Forman Glucose Ql (U) Negative Normal NEGATIVE [facility] Comment on above: Performed By: #### H STROPN, CMP #### [facility] [address] [address] [address] Manjinder Forman Hemoglobin Ql (U) Negative Normal NEGATIVE The [facility] Comment on above: Performed By: #### H STROPN, CMP #### [facility] [address] [address] [address] Manjinder Forman Ketones Ql (U) Negative Normal NEGATIVE [facility] Comment on above: Performed By: #### H STROPN, CMP #### [facility] [address] [address] [address] Manjinder Forman LEUKOCYTES Negative Normal NEGATIVE [facility] Comment on above: Performed By: #### H STROPN, CMP #### [facility] [address] [address] [address] Manjinder Forman MUCOUS NONE SEEN Normal NONE SEEN [facility] Comment on above: Performed By: #### H STROPN, CMP #### [facility] [address] [address] [address] Manjinder Forman Nitrite Ql (U) Negative Normal NEGATIVE [facility] Comment on above: Performed By: #### H STROPN, CMP #### [facility] [address] [address] [address] Manjinder Forman pH (U) 6.0 [pH] Normal 5-9 [facility] Comment on above: Performed By: #### H STROPN, CMP #### [facility] [address] [address] [address] Manjinder Forman RBC NONE SEEN Abnormal 0-2 [facility] Comment on above: Performed By: #### H STROPN, CMP #### [facility] [address] [address] [address] Manjinder Forman SPEC GRAVITY 1.010 Normal 1.005-<=1. 025 [facility] Comment on above: Performed By: #### H STROPN, CMP #### [facility] [address] [address] [address] Manjinder Forman UA PROTEIN Negative Normal NEGATIVE/ TRACE [facility] Comment on above: Performed By: #### H STROPN, CMP #### [facility] [address] [place], [place] [address] Dr. Manjinder Forman Urobilinogen Qn (U) 0.2 {Gabi'U}/dL Normal 0.2 - 1.0 [facility] Comment on above: Performed By: #### H RON, CMP #### [facility] [address] [place], [place] [address] Dr. Manjinder Forman WBC NONE SEEN Normal NONE SEEN [facility] Comment on above: Performed By: #### H RON, CMP #### [facility] [address] [place], [place] [address] Dr. Manjinder Forman XR KUB 1 VIEWon 07-02-2022 XR KUB 1 VIEW EXAMINATION: XR KUB [...] by: CHIDI MORALES Date: 2022-07-02 13:43 Normal The [facility] CPKon 04-17-2021 CK [Catalytic activity/Vol] 59 U/L Normal 30-[address] [facility] Comment on above: Performed By: #### 2 5508, [id number], [id number] #### [facility] [address] [place] [id number] 04-17-2021 CYCLIC CIT PEP 4 Units Normal 0-[address] [facility] Comment on above: Result Comment: INTE RPRETIVE [...] be monitored and testing repeated. Performed By: [employer] [address] [place] [id number] Industrial Maintenance Electrician: Emily Tellez MD HAND LEFT 3 [facility] 04-17-2021 HAND LEFT 3 [facility] Department of Radiology [address] [place] [id number] Patient Name: ANDREA LONG : 1980 Sex: F Age: Race: White Pt. Location: [facility] Patient Status: O Ordered Date: 04/17/2021 11:05:00 AM Completed Date: 04/17/2021 11:06 AM Requesting Provider: LUBNA BONILLA Attending Provider: BHAVIK ARRIAGA Report Copy To: Signs & Symptoms: M25.50 Pain in unspecified joint I10 History: Breonna Comments: Evaluate Exam: HAND LEFT 3 [facility] HAND LEFT 3 [facility] CLINICAL INFORMATION: pt states alfie hand pain, arthritis COMPARISON: None. IMPRESSION: 1. No fracture or other acute osseous abnormalities identified. Scattered degenerative changes. No erosions. Electronically signed: Lukas Porter. Transcribed by: [email or web address], User Resident: Electronically Signed by: LUKAS PORTER @ 04/17/2021 04:14 PM Normal [facility] Comment on above: Order Comment: Evalu ate HAND RIGHT 3 [facility] 1 HAND RIGHT [address] [facility] Department of Radiology [address] [place] [id number] Patient Name: ANDREA LONG : 1980 Sex: F Age: Race: White Pt. Location: [facility] Patient Status: O Ordered Date: 04/17/2021 11:05:00 AM Completed Date: 04/17/2021 11:06 AM Requesting Provider: LUBNA BONILLA Attending Provider: BHAVIK ARRIAGA Report Copy To: Signs & Symptoms: M25.50 Pain in unspecified joint I10 History: Breonna Comments: Evaluate Exam: HAND RIGHT 3 S HAND RIGHT 3 S CLINICAL INFORMATION: pt states alfie hand pain, arthritis COMPARISON: None. IMPRESSION: 1. No fracture. No erosions. Scattered degenerative changes. Electronically signed: Lukas Porter. Transcribed by: Katty, User Resident: Electronically Signed by: LUKAS PORTER @ 04/17/2021 04:15 PM Normal [facility] Comment on above: Order Comment: Evalu ate SEDIMENTATION RATEon 021 SED RATE 10 mm/hr Normal 0-[address] [facility] Comment on above: Performed By: #### 5 [id number] #### [facility] [address] [place] [address], [facility] SJOGRENS ANTIBODIESon 2020 SS-A Negative Normal NEG,NEGATI VE,Neg The [facility] Comment on above: Performed By: #### 9 [id number] #### [facility] [address] [place] [address], [facility] SS-B Negative Normal NEG,NEGATI VE,Neg The [facility] Comment on above: Performed By: #### 9 9850 #### [facility] [address] [place] [address], [facility] TSH3on 04-17-2021 TSH 3RD GENERATION 1.35 uIU/mL Normal 0.34-5.[address] [facility] Comment on above: Performed By: #### 2 5508, [address]386, [address] #### [facility] [address] [facility] [address] VITAMIN D 25-HYDROXYon 04-17 VITAMIN D 25-OH 66.4 ng/mL Normal 30.0-80.[address] [facility] Comment on above: Result Comment: >80. 0 Toxicity possible Performed By: #### 2 5508, 50352, [id number] #### [facility] [address] [facility] [address] CBC With Auto Differentialon 12-18-2020 Basophils (Bld) [#/Vol] 0.05 10*3/uL [employer] Work Phone: Basophils/100 WBC (Bld) 1 % 0 - 2 % [employer] Work Phone: Differential Type NOT REPORTED [employer] Phone: Eosinophils (Bld) [#/Vol] 0.21 10*3/uL [employer] Phone: Eosinophils/100 WBC (Bld) 3 % 1 - 4 % [employer] Phone: Erythrocyte distribution width (RBC) [Ratio] 11.7 % Low 11.8 - 14.4 % [employer] Phone: Hematocrit (Bld) [Volume fraction] 43.3 % 36.3 - 47.1 % [employer] Phone: Hemoglobin (Bld) [Mass/Vol] 13.8 g/dL 11.9 - 15.1 g/dL [employer] Phone: Immature granulocytes (Bld) [#/Vol] 0 % 0 [employer] Phone: Immature granulocytes (Bld) [#/Vol] 10*3/uL [employer] Phone: Interpretation and review of laboratory results Abnormal [employer] Phone: Lymphocytes (Bld) [#/Vol] 2.04 10*3/uL [employer] Phone: Lymphocytes/100 WBC (Bld) 28 % 24 - 43 % [employer] Phone: MCH (RBC) [Entitic mass] 30.7 pg 25.2 - 33.5 pg [employer] Phone: MCHC (RBC) [Mass/Vol] 31.9 g/dL 28.4 - 34.8 g/dL [employer] Phone: MCV (RBC) [Entitic vol] 96.2 fL 82.6 - 102.9 fL [employer] Phone: Monocytes (Bld) [#/Vol] 0.83 10*3/uL [employer] Phone: Monocytes/100 WBC (Bld) 11 % 3 - 12 % [employer] Phone: Platelet mean volume (Bld) [Entitic vol] 10.5 fL 8.1 - 13.5 fL [employer] Work Phone: Platelets (Bld) [#/Vol] 335 10*3/uL [employer] Work Phone: Platelets (Bld) [#/Vol] NOT REPORTED [employer] Phone: RBC (Bld) [#/Vol] 4.50 10*6/uL 3.95 - 5.11 m/uL [employer] Work Phone: RBC morphology finding Nom (Bld) NOT REPORTED [employer] Work Phone: Segmented neutrophils/100 WBC (Bld) 57 % 36 - 65 % [employer] Work Phone: Segs Absolute 4.10 [employer] Work Phone: WBC (Bld) [#/Vol] 7.3 10*3/uL [employer] Work Phone: WBC (Bld) [#/Vol] 0.0 10*3/uL 0.0 per 100 WBC [employer] Phone: WBC Morphology NOT REPORTED [employer] [facility] Work Phone: COVID-19on 11-06-2020 SARS-CoV-2 [employer] Phone: SARS-CoV-2 Not Detected Not Detected [employer] Phone: Comment on above: The specimen is NEGATIVE for SARS-CoV-2, the novel coronavirus associated with COVID-19. A negative result does not rule out COVID-19. Malachi SARS-CoV-2 for use on the [employer] is a real-time RT-PCR test intended [...] this assay. Fact sheet for Healthcare Providers: https://www.fda.gov/media/695014/download Fact sheet for Patients: https://www.fda.gov/media/345634/download METHODOLOGY: RT-PCR SARS-CoV-2, Rapid [employer] Work Phone: Source .NASOPHARYNGEAL SWAB [employer] Work Phone: US BREAST COMPLETE RIGHTon 0 [...] to the patient regarding the results. The [employer] [employer] recommends annual mammograms for women 40 years and older. [employer] [place] EXAMINATION: TARGETE D ULTRASOUND OF THE RIGHT [...] a breast lobule. No suspicious mass identified. [employer] [place] Karan, Mhpn Incoming R adiant Results From [email or web address] - 10/05/2020 2:26 PM EST EXAMINATION: TARGETED [...] to the patient regarding the results. The [employer] [place] [employer] recommends annual mammograms for women 40 years and older. [place] Estradiolon 08-31-2020 Estradiol <5 Low 27 - 314 pg/mL [place] Comment on above: FEMALES: Normally menstruating Luteal phase 33-298 Follicular phase 27-156 Midcycle phase 48-314 Postmenopausal (untreated) 5-50 Fulvestrant treatment will show an increased estradiol concentration with this methodology. Alternate methodologies are available upon request. Follicle Stimulating Hormone on 08-31-2020 FSH 1 U/L Low 1.7 - 21.5 U/L [place] Comment on above: Reference Range: Male: 1.5-12.4 Ovulating Female: Follicular Phase 3.5-12.5 Ovulation Phase 4.7-21.5 Luteal Phase 1.7-7.7 Postmenopausal Female: 25.8-134.8 Luteinizing Hormoneon 2019 LH <0.1 Low 1 - 95.6 U/L [place] Comment on above: Reference Range: Male: 1.7-8.6 Ovulating Female: Follicular Phase 2.4-12.6 Ovulation Phase 14.0-95.6 Luteal Phase 1.0-11.4 Postmenopausal Female: 7.7-58.5 Otheron 08-31-2020 Interpretation and review of laboratory results Abnormal [place] TSH With Reflex Ft4on 2019 TSH Qn 1.26 m[IU]/L [place], [place] US NON OB TRANSVAGINALon Unremarkable sonogra phic appearance of the uterus and endometrial stripe. Neither ovary is visualized or evaluated. [place] EXAMINATION: PELVIC ULTRASOUND 07/12/2020 TECHNIQUE: Transvaginal pelvic ultrasound was performed. COMPARISON: None HISTORY: ORDERING SYSTEM PROVIDED HISTORY: History of menorrhagia FINDINGS: Neither ovary is visualized or evaluated. Uterus measures 7.3 x 3.0 x 3.7 cm. Endometrial stripe measures 5.9 mm. No free fluid is appreciated. [place], [place] Karan, Mhpn Incoming R adiant Results From [email or web address] - 07/12/2020 6:18 PM EDT EXAMINATION: PELVIC [...] stripe. Neither ovary is visualized or evaluated. [place] Social History Date Type Detail Facility Start: 06-25-2023 Alcohol Comment 1-2 drinks 2-4 x a month in the past year, Caffeine intake: none [facility] Start: 10-22-2020 End: 05-01-2023 Sex Assigned At [facility] Start: 10-22-2020 End: 05-01-2023 Occasional caffeine consumption Occasional caffeine consumption [facility] Start: 05-01-2023 History SDOH Alcohol Frequency 2 [facility] Start: 05-01-2023 History SDOH Alcohol Std Drinks 1 [facility] Start: 06-08-2022 End: 06-18-2022 Exposure to SARS-CoV-2 (event) Not sure [place] Start: 11-21-2020 End: 07-03-2021 Tobacco smoking status Ex-smoker (finding) [facility] Start: 10-06-2018 End: 07-05-2020 Tobacco smoking status NHIS Never smoker [place] Start: 07-05-2020 End: 11-21-2020 Tobacco use and exposure Never used [facility] Start: 07-05-2020 End: 12-22-2022 Alcohol intake Current drinker of alcohol (finding) [place] Start: 07-05-2020 End: 11-21-2020 Alcohol Comment social [place], [place] Start: 1980 Sex Assigned At Not on file M [place], [place] Start: 1980 Sex Assigned At Female [facility] Tobacco smoking status Never [facility] History of tobacco use [facility]oker [facility] History of tobacco use Cigarette Smoker [facility] How often to you hav e a drink containing alcohol? Monthly or less [facility] How many standard drinks containing alcohol do you have on a typical day? 1 or 2 [facility] How often do you hav e 6 or more drinks on 1 occasion? Less than monthly [facility] Vital Signs Date Time Vital Sign Value Performing Clinician Facility 09-29-2023 13:10-0500 Body height 165.1 cm Ramona Jimenez Other [employer] Other 09-29-2023 13:10-0500 Body mass index (BMI) [Ratio] 30.62 kg/m2 Ramona Jimenez Other [employer] Other 09-29-2023 13:10-0500 Body temperature 98.2 [degF] Ramona Jimenez Other [employer] Other 09-29-2023 13:10-0500 Body weight 83.46 kg Ramona Jimenez Other [employer] Other 09-29-2023 13:10-0500 Respiratory rate 18 /min Ramona Jimenez Other [employer] Other 09-29-2023 13:10-0500 SaO2% (BldA) [Mass fraction] 98 % Ramona Jimenez Other [facility] Other 05-01-2023 13:56-0400 Body height 165.1 cm Noemi Franklin DO Work Phone: [employer] 05-01-2023 13:56-0400 Body mass index (BMI) [Ratio] 28.29 kg/m2 Noemi Franklin DO Work Phone: [facility] 05-01-2023 13:56-0400 Body temperature 97.3 [degF] Noemi Franklin DO Work Phone: [facility] [employer] 05-01-2023 13:56-0400 Body weight 77.11 kg Noemi Franklin DO Work Phone: [facility] 05-01-2023 13:56-0400 Diastolic blood pressure 84 mm[Hg] Noemi Franklin DO Work Phone: [facility] 05-01-2023 13:56-0400 Heart rate 75 /min Noemi Franklin DO Work Phone: [facility] [employer] 05-01-2023 13:56-0400 Respiratory rate 16 /min Noemi Franklin DO Work Phone: [facility] 05-01-2023 13:56-0400 SaO2% (BldA) [Mass fraction] 99 % Noemi Franklin DO Work Phone: [employer] 05-01-2023 13:56-0400 Systolic blood pressure 150 mm[Hg] Noemi Franklin DO Work Phone: [facility] [employer] 04-23-2023 12:39-0400 Diastolic blood pressure 90 mm[Hg] Caitlin Gemini Finch Work Phone: [facility] DO Work Phone: 04-23-2023 12:39-0400 Diastolic blood pressure 84 mm[Hg] Caitlin Singletary Aichholz Work Phone: [facility] DO Work Phone: 04-23-2023 12:39-0400 Systolic blood pressure 124 mm[Hg] Caitlin Singletary Aichholz Work Phone: [facility] DO Work Phone: 04-23-2023 12:39-0400 Systolic blood pressure 118 mm[Hg] Caitlin Singletary Aichholz Work Phone: [facility] DO Work Phone: 04-23-2023 12:05-0400 Body height 165.1 cm Caitlin Singletary Aichholz Work Phone: [facility] DO Work Phone: 04-23-2023 12:05-0400 Body mass index (BMI) [Ratio] 28.62 kg/m2 Caitlin Singletary Aichholz Work Phone: [facility] DO Work Phone: 04-23-2023 12:05-0400 Body surface area Derived from formula 1.86 m2 Caitlin Singletary Aichholz Work Phone: [facility] DO Work Phone: 04-23-2023 12:05-0400 Body weight 78.02 kg Caitlin Singletary Aichholz Work Phone: [facility] DO Work Phone: 04-23-2023 12:05-0400 Heart rate 86 /min Caitlin Singletary Aichholz Work Phone: [facility] DO Work Phone: 04-23-2023 12:04-0400 Diastolic blood pressure 102 mm[Hg] Caitlin Singletary Aichholz Work Phone: [facility] DO Work Phone: 04-23-2023 12:04-0400 Diastolic blood pressure 104 mm[Hg] Caitlin Singletary Aichholz Work Phone: [facility] DO Work Phone: 04-23-2023 12:04-0400 Systolic blood pressure 154 mm[Hg] Caitlin Singletary Aichholz Work Phone: [facility] DO Work Phone: 04-23-2023 12:04-0400 Systolic blood pressure 152 mm[Hg] Caitlin Singletary Aichholz Work Phone: [facility] DO Work Phone: 04-23-2023 12:04-0400 Systolic blood pressure 148 mm[Hg] Caitlin Singletary Aichholz Work Phone: [facility] DO Work Phone: 12-22-2022 13:35-0400 Blood Pressure Location Roney VILLALTA [facility] 12-22-2022 13:35-0400 Diastolic blood pressure 82 mm[Hg] Roney VILLALTA [facility] 12-22-2022 13:35-0400 Heart rate 72 /min Roney VILLALTA [facility] 12-22-2022 13:35-0400 Respiratory rate 16 /min Roney VILLALTA [facility] 12-22-2022 13:35-0400 Systolic blood pressure 140 mm[Hg] Roney VILLALTA [facility] 09-01-2022 12:38-0500 Blood Pressure Location Roney VILLALTA [facility] 09-01-2022 12:38-0500 Diastolic blood pressure 88 mm[Hg] Roney VILLALTA [facility] 09-01-2022 12:38-0500 Heart rate 75 /min Roney VILLALTA [facility] 09-01-2022 12:38-0500 Respiratory rate 16 /min Roney VILLALTA [facility] 09-01-2022 12:38-0500 Systolic blood pressure 137 mm[Hg] Roney VILLALTA [facility] 07-18-2022 13:50-0400 Body height 165.1 cm Jaelyn Bright Other [employer] Other 07-18-2022 13:50-0400 Body mass index (BMI) [Ratio] 27.65 kg/m2 Jaelyn Bright Other [employer] Other 07-18-2022 13:50-0400 Body temperature 97.8 [degF] Jaelyn Bright Other [employer] Other 07-18-2022 13:50-0400 Body weight 75.39 kg Jaelyn Bright Other [employer] Other 07-18-2022 13:50-0400 Diastolic blood pressure 65 mm[Hg] Jaelyn Bright Other [employer] Other 07-18-2022 13:50-0400 Respiratory rate 18 /min Jaelyn Bright Other [employer] Other 07-18-2022 13:50-0400 SaO2% (BldA) [Mass fraction] 97 % Jaelyn Bright Other [employer] Other 07-18-2022 13:50-0400 Systolic blood pressure 106 mm[Hg] Jaelyn Bright Other [employer] Other Functional Status Date Assessment Result Facility 12-22-2022 Functional Status N/A [facility] 09-01-2022 Functional Status N/A [facility] Clinical Notes 07-18-2022 to 09-29-2023 Note Date & Type Note Facility 09-29-2023 Evaluation note Encounter Date Diagnosis Assessment Notes Sep, Sore throat (ICD-10 - J02.9) Sep, Acute viral bronchitis (ICD-10 - J20.8) Advised patient that rapid COVID/influenza A/B and rapid strep test were negative today in office. Discussed gnosis with patient in detail. Will treat as viral today based on physical exam and duration of symptoms, antibiotics are not indicated for viral infections. Advised patient that viral syndromes last 7-10 days, cough may linger for 3 weeks. Take medications as prescribed, reviewed side effects of steroid, take with food and plenty of water. Supportive care as directed, push fluids and rest, may use Tylenol as needed for fever/discomfort , cool mist humidifier. May use Freedom as needed for cough, do not take any other OTCs while using Freedom. Patient to follow up with PCP in 2-3 days symptoms do not improve. Immediate eval if SOB, difficulty breathing, chest pain, dizziness, or other concerning symptoms. Patient verbalizes understanding and is agreeable to treatment plan. [facility] Other 08-04-2023 Hospital Discharge instructions* Discharge Instructions* Ericka Mackenzie PA-C - 05/01/2023 2:50 PM EDT Please follow up with PCP. Recommend benadryl for itching. Return to the ED if you develop worsening rash, throat swelling, shortness of breath, fevers, eye redness, eye pain, vision changes. * Attachments The following attachments cannot be sent through Care Everywhere. * Poison Loli - Nada - and [place] ([place]) documented in [facility] [place] Hospital Discharge instructions Patient Education 12/22/2022 08:33:41 Dietary Guidelines [...] about 300 mg of calcium at each meal.Foods that contain 200 500 mg of calcium [...] Talk to your dietitian about how much calciumis recommended for you. Shopping Buy plenty of [...] the table and allow each person to addhis or her own salt to taste. Use [...] fish, if told by your dietitian. To dothis: ?Limit the number of times you have [...] include: ?Spinach. ?Rhubarb. ?Beets. ?Potato chips and argentine fries. ?Nuts. If you regularly take a diuretic medicine, make sure to eat at least 1 2 fruits or vegetables high in potassium each day. These include: ?Avocado. ?Banana. ?Lodgepole, prune, carrot, or tomato juice. ?Baked potato. [...] fish. Salted or cured meats. Deli meats. Hotdogs. Sausages. Dairy Cheese. Beverages Regular soft drinks. Regular vegetable juice. Seasonings and other foods Seasoning blends with salt. Salad dressings. Canned soups. Soy sauce. Ketchup. Barbecue sauce. Canned pasta sauce. Casseroles. Pizza. Lasagna. Frozen meals. Potato chips. Samoan fries. Summary You can reduce your risk of kidney stones by making changes to your diet. The most important thing you can do is drink enough fluid. You should drink enough fluid to keep your urine clear or pale yellow. Ask your health care provider or dietitian how much protein from animal sources you should eat eachday, and also how much salt and calcium you should have each day. This information is not intended to replace advice given to you by your health care provider. Make sure you discuss any questions you have with your health care provider. Document Released: 01/09/2012 Document Revised: 01/04/2020 Document Reviewed: 08/25/2017 Work4 Patient Education 2020 [employer]. Follow Up Care 09/01/2022 13:32:46 With:PAWAN HAWLEY, Roney Kumar, URL Address: [facility] [address], [place] [address]- When: Unknown [facility] Cherie 12-05-2022 Hospital Discharge instructions Patient Education 09/01/2022 08:28:46 Dietary Guidelines [...] about 300 mg of calcium at each meal.Foods that contain 200 500 mg of calcium [...] Talk to your dietitian about how much calciumis recommended for you. Shopping Buy plenty of [...] the table and allow each person to addhis or her own salt to taste. Use [...] fish, if told by your dietitian. To dothis: ?Limit the number of times you have [...] include: ?Spinach. ?Rhubarb. ?Beets. ?Potato chips and argentine fries. ?Nuts. If you regularly take a diuretic medicine, make sure to eat at least 1 2 fruits or vegetables high in potassium each day. These include: ?Avocado. ?Banana. ?Lodgepole, prune, carrot, or tomato juice. ?Baked potato. [...] fish. Salted or cured meats. Deli meats. Hotdogs. Sausages. Dairy Cheese. Beverages Regular soft drinks. Regular vegetable juice. Seasonings and other foods Seasoning blends with salt. Salad dressings. Canned soups. Soy sauce. Ketchup. Barbecue sauce. Canned pasta sauce. Casseroles. Pizza. Lasagna. Frozen meals. Potato chips. Samoan fries. Summary You can reduce your risk of kidney stones by making changes to your diet. The most important thing you can do is drink enough fluid. You should drink enough fluid to keep your urine clear or pale yellow. Ask your health care provider or dietitian how much protein from animal sources you should eat eachday, and also how much salt and calcium you should have each day. This information is not intended to replace advice given to you by your health care provider. Make sure you discuss any questions you have with your health care provider. Document Released: 01/09/2012 Document Revised: 01/04/2020 Document Reviewed: 08/25/2017 Work4 Patient Education 2020 [employer]. Follow Up Care 07/31/2022 10:50:53 With:PAWAN HAWLEY, Roney Kumar, URL Address: [facility] [address], [place] [address]- When: Unknown [facility] 10-21-2022 Evaluation note* Encounter Date Diagnosis Assessment Notes Treatment Notes Treatment Clinical Notes Jun, Thrush (ICD-10 - B37.0) Thrush home care material was printed Drink plenty fluids, get plenty of rest. Continue home medications as prescribed. Use the nystatin suspension as prescribed. Follow-up with your family physician if no improvement in 2 to 3 days. Jun, Sore throat (ICD-10 - J02.9) [facility] Other Chief complaint Narrative - ReportedANDREA LONG is being seen for a consultation for syncope, orthostatic hypotension.[facility] [address] DO Work Phone: Evaluation + Plan note Future Appointments Appointment Date:12/22/2022 01:15:00 PM Scheduled Provider:Roney VILLALTA MD Location:[facility] Appointment Type:URO Office Visit [facility] evaluation + Plan note Future Appointments Appointment Date:07/06/2023 12:45:00 PM Scheduled Provider:Roney VILLALTA MD Location:[facility] Appointment Type:URO Office Visit [facility] evaluation noteNo assessment information available [facility] Work Phone: Evaluation note* Diagnosis Postcoital bleeding documented in this encounter [employer] Work Phone: [email or web address] note* Diagnosis Dysuria Pelvic pain documented in this encounter [facility] [employer] Phone: evaluation note* Diagnosis Hot flashes Symptomatic menopausal or female climacteric states documented in this encounter [employer] Work Phone: evalkpetcj note* Diagnosis Poison loli- Primary Contact dermatitis and other eczema due to plants (except food) documented in this encounter [facility]Evaluation note* Diagnosis Menopausal symptoms Symptomatic menopausal or female climacteric states Vaginal discomfort Unspecified symptom associated with female genital organs documented [facility] this [facility] Narrative - Reported* Type Description Date Medical History migraine headache Medical History depression Medical History anxiety Surgical History appendectomy Surgical History partial hysterectomy Hospitalization History see above [facility] Other Hospital course Narrative No data available for this section [facility] InstructionsNot on filedocumented in this encounter [facility] No data available for this section [facility] Signal Data Assessments Diagnosis Screening for cervical cancer Screening [...] FoundDocuments on File Type Date Recorded 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 ACP-Advance Directive ACP-Power of Plsql Developer Documents on File Type Date Recorded 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 ACP-Advance Directive ACP-Power of Plsql Developer Latest Code Status on File Code Status Date Activated Date Inactivated Comments Full Code 11/12/2020 2:36 PM 11/12/2020 7:59 PM Advance Directive Response Recorded Date/ Time Advance Directives No December 27 3:44pm Latest Code Status on File Code Status Date Activated Date Inactivated Comments Full Code 11/12/2020 2:36 PM 11/12/2020 7:59 PM Latest Code Status on File Code Status Date Activated Date Inactivated Comments Full Code 01/08/2022 8:22 AM 01/09/2022 8:23 PM Reason for Referral Status Reason Specialty Diagnoses / Procedures Referred By Contact Referred To Contact Pending Review Radiology Diagnoses History of menorrhagia Procedures US NON OB TRANSVAGINAL Frank Diaz APRN - CNM [address] [place] [address] Status Reason Specialty Diagnoses / Procedures Referre d By Contact Referred To Contact Open Radiology Diagnoses Abnormal mammogram Procedures US BREAST COMPLETE RIGHT Frank Diaz APRN - CNM [address] [place] [address] [facility] [address] [place] [address] Summary Purpose Family History No Family History [...] OB TRANSVAGINAL Frank Diaz APRN - CNM [address] [place] [address] [address] [place] [address] Status Reason Specialty Diagnoses / Procedures Referred By Contact Referred To Contact Pending Review Radiology Diagnoses Screening mammogram, encounter for Procedures SHAYLEE ANTONIO DIGITAL SCREEN BILATERAL SHAYLEE DIGITAL SCREEN W OR WO CAD BILATERAL Frank Diaz APRN - CNM [address] [place] [address] [address] [place] [address] [facility] [address] [place] [id number] Status Reason Specialty Diagnoses / Procedures Referre d By Contact Referred To Contact Open Radiology Diagnoses Abnormal mammogram Procedures US BREAST COMPLETE RIGHT Frank Diaz APRN - CNM [address] [place] [address] [address] [place] [address] [facility] [address] [place] [address] Status Reason Specialty Diagnoses / Procedures Referre d By Contact Referred To Contact Closed Radiology Diagnoses Abnormal mammogram Procedures SHAYLEE ANTONIO DIGITAL DIAGNOSTIC UNILATERAL RIGHT SHAYLEE DIAGNOSTIC W CAD RIGHT Frank Diaz, GRINDER [employer] - CNM [address] [facility] [address] [place] [address] [facility] [address] [place] [address] Reason Comments Rash INFORMATION SOURCE (unrecogn ized section and content) DATE CREATED AUTHOR 04/22/2021 [facility] DATE CREATED AUTHOR AUTHOR'S ORGANIZ ATION 02/11/2023 [facility] DATE CREATED AUTHOR AUTHOR'S ORGANIZ ATION 04/24/2023 [employer] DATE CREATED AUTHOR AUTHOR'S ORGANIZ ATION 05/21/2023 [facility] DATE CREATED AUTHOR AUTHOR'S ORGANIZ ATION 07/04/2023 [facility] DATE CREATED AUTHOR AUTHOR'S ORGANIZ ATION 07/05/2023 [facility] DATE CREATED AUTHOR AUTHOR'S ORGANIZ ATION 07/07/2023 [facility] DATE CREATED AUTHOR AUTHOR'S ORGANIZ ATION 08/01/2023 [facility] DATE CREATED AUTHOR AUTHOR'S ORGANIZ ATION 11/18/2023 [facility] DATE CREATED AUTHOR AUTHOR'S ORGANIZ ATION 12/12/2023 [facility] DATE CREATED AUTHOR AUTHOR'S ORGANIZ ATION 03/02/2024 [facility] DATE CREATED AUTHOR AUTHOR'S ORGANIZ ATION 03/12/2024 [facility] EPIC Care Teams (unrecognized sec tion and content) Team Status: Inactive Member Role Status Dates Fernando Ragsdale DO Attending Provider Active NON STAFF Primary Care Provider Active Team Status: Active Member Role Status Dates NON STAFF Primary Care Provider Active Analyst [employer] Relationship Specialty Start Date End Date Caitlin Finch [address] [place], [place] [id number] PCP - General Nurse Practitioner 07/09/20 Analyst [employer] Relationship Specialty Start Date End Date Caitlin Finch [address] [place] [address] PCP - General Nurse Practitioner 07/09/20 Analyst [employer]ochemical Prospecting Relationship Specialty Start Date End Date Caitlin Finch [address] [place] [address] PCP - General Nurse Practitioner 07/09/20 Analyst [employer]ochemical Prospecting Relationship Specialty Start Date End Date Caitlin Finch [address] [place] [address] PCP - General Nurse Practitioner 07/09/20 Analyst [employer]ochemical Prospecting Relationship Specialty Start Date End Date Caitlin Finch [address] [place] [address] PCP - General Nurse Practitioner 07/09/20 Analyst [employer]ochemical Prospecting Relationship Specialty Start Date End Date Ugo Ramsay MD [address] [place] [address] PCP - General Family Medicine 04/08/23 Caitlin Finch NP [address] [place] [address] Referring Physician Nurse Practitioner 04/06/23 Analyst Geochemical Prospecting Relationship Specialty Start Date End Date Caitlin Finch APRN-CEREAL CHEMIST [address] [place] [address] PCP - General Nurse Practitioner 12/22/22 Goals (unrecognized section and content) Goals may be documented in a n alternate sectionNo Information No data available for this section No data available for this sectionNo Information Ordered Prescriptions (unrec ognized section and content) [...] BE BASED ON THE PRIMARY CLINICAL RECORDS. [employer] [facility]. provides no warranty or guarantee of the accuracy or completeness of information in this document.
--- NOTE | 2024-03-18 07:36 | FL_ITS ---
The [address] [address] Patient Name: ANDREA CORNELIUS MRN: [id number] date: 1980 Sex: F Assigned Patient Location: MRI Current Patient Location: MRI Accession/Order Number: [id number] Exam Date: 03/18/2024 08:00 Report Date: 03/18/2024 09:49 At the request of: LUKAS JHAVERI Procedure: FL guided needle placement EXAMINATION: FL arthrogram hip, FL guided needle placement HISTORY: Acute Right Hip Pain 39.4 seconds of fluoroscopy. 9.9 mg COMPARISON: No relevant comparison available. TECHNIQUE: An arthrogram was performed under fluoroscopic guidance using non-ionic contrast material in the usual sterile manner after obtaining informed consent. Standard level fluoroscopic mode of operation utilized. FINDINGS: JOINT: Right hip NEEDLE: 25 gauge, 3.5 spinal needle. MEDICATION: 6cc buffered 1% lidocaine for subcutaneous anesthesia 5 cc Omnipaque 300 iodinated contrast to visualize the joint space 40 mg Kenalog and 5 milliliters 1% lidocaine, 0.2 mL the right TECHNIQUE: Anterior approach with prior localization of the femoral artery. A single stick was successful in gaining access to the joint space. CLINICAL: Immediate and near complete resolution of hip pain following the injection. COMPLICATIONS: None. BONES: Normal. No erosion, osteophyte, fracture, or bony lesion. CARTILAGE: Normal. No visible erosion or interruption. CAPSULE: Normal. No visible capsular laxity or labrum tear. QUENTIN-ARTICULAR: Normal. No visible quentin-articular soft tissue abnormality. LOOSE BODIES: None. OTHER: Negative. PLEASE ALSO SEE THE SEPARATE ARTHROGRAM PROCEDURE REPORT. FL/FL guided needle placement IMPRESSION: Technically successful right hip diagnostic arthrogram Electronically authenticated by: JANA CAMP Date: 03/18/2024 09:49
--- NOTE | 2024-03-18 07:36 | FL_ITS ---
The [address] [address] Patient Name: ANDREA CORNELIUS MRN: [id number] date: 1980 Sex: F Assigned Patient Location: MRI Current Patient Location: MRI Accession/Order Number: [id number] Exam Date: 03/18/2024 08:00 Report Date: 03/18/2024 09:49 At the request of: LUKAS JHAVERI Procedure: FL arthrogram hip EXAMINATION: FL arthrogram hip, FL guided needle placement HISTORY: Acute Right Hip Pain 39.4 seconds of fluoroscopy. 9.9 mg COMPARISON: No relevant comparison available. TECHNIQUE: An arthrogram was performed under fluoroscopic guidance using non-ionic contrast material in the usual sterile manner after obtaining informed consent. Standard level fluoroscopic mode of operation utilized. FINDINGS: JOINT: Right hip NEEDLE: 25 gauge, 3.5 spinal needle. MEDICATION: 6cc buffered 1% lidocaine for subcutaneous anesthesia 5 cc Omnipaque 300 iodinated contrast to visualize the joint space 40 mg Kenalog and 5 milliliters 1% lidocaine, 0.2 mL the right TECHNIQUE: Anterior approach with prior localization of the femoral artery. A single stick was successful in gaining access to the joint space. CLINICAL: Immediate and near complete resolution of hip pain following the injection. COMPLICATIONS: None. BONES: Normal. No erosion, osteophyte, fracture, or bony lesion. CARTILAGE: Normal. No visible erosion or interruption. CAPSULE: Normal. No visible capsular laxity or labrum tear. QUENTIN-ARTICULAR: Normal. No visible quentin-articular soft tissue abnormality. LOOSE BODIES: None. OTHER: Negative. PLEASE ALSO SEE THE SEPARATE ARTHROGRAM PROCEDURE REPORT. FL/FL arthrogram hip IMPRESSION: Technically successful right hip diagnostic arthrogram Electronically authenticated by: JANA CAMP Date: 03/18/2024 09:49
--- NOTE | 2024-03-18 07:37 | MR_ITS ---
The [address] [address] Patient Name: ANDREA CORNELIUS MRN: [id number] date: 1980 Sex: F Assigned Patient Location: MRI Current Patient Location: Accession/Order Number: [id number] Exam Date: 03/18/2024 09:00 Report Date: 03/18/2024 13:05 At the request of: LUKAS JHAVERI Procedure: MR hip RT w con EXAMINATION: MR hip RT w con HISTORY: Acute Right Hip Pain COMPARISON: No relevant comparison available. TECHNIQUE: A comprehensive examination was performed utilizing a variety of imaging planes and imaging parameters to optimize visualization of suspected pathology. Images were performed without contrast. FINDINGS: FEMORAL HEAD: Normal. No AVN, fracture, or significant arthropathy. ACETABULUM: Normal. No fracture or significant arthropathy. OTHER BONES: Normal appearance of the visualized portion of the pelvis. LABRUM: Findings likely representing a superior anterior labral tear EFFUSIONS: None. No synovitis or loose bodies. BURSAE: Normal. No evidence of iliopsoas or trochanteric bursitis. TENDONS: Normal. Normal gluteus tendons, iliopsoas tendon, and hamstring origin. MUSCLES: Normal. No tear or strain. No inappropriate atrophy. OTHER: Negative. MR/MR hip RT w con IMPRESSION: Superior anterior labral tear Electronically authenticated by: JANA CAMP Date: 03/18/2024 13:05
[2024-03-18] MEDS: TRIAMCINOLONE ACETONIDE 40 MG/ML VIAL INJ (08:35)
[2024-03-18] MEDS: LIDOCAINE HCL 15 ML, SODIUM BICARBONATE 1 MEQ INJ (08:35)
--- NOTE | 2024-03-18 09:51 | SUR.PREOP ---
03/10/24 Pt instructed on procedure, date, time, and prep.
== END 2024-03-18 09:00 | disposition home or self-care (01) ==
LOC: MRI 07:31
PROVIDERS: Radiology Diagnostic Radiology; PCP Nurse Practitioner; Visit Provider Personal Emergency Response Attendant
DX: M25.551 Pain in right hip (principal); G89.29 Other chronic pain; S73.101A Unspecified sprain of right hip, initial encounter
CPT/HCPCS: 27093; 73722; 77002; A9575; J3301; Q9967

== ENCOUNTER 2024-04-20 15:59 | Outpatient (OUT) | payer MEDICARE, SELFPAY ==
[2024-04-20 16:20] LABS: Basophils Percent Auto 0.7 % (0.2-2.0); Eosinophils Absolute Auto 0.5 10^3/uL (0.0-0.7); Eosinophils Percent Auto 8.3 % (0.9-7.0); Hematocrit 37.6 % (36.0-48.0); Hemoglobin 12.3 g/dL (12.0-16.0); Immature Granulocytes Abs Auto 0.03 10^3/uL (0.00-0.03); Immature Granulocytes Pct Auto 0.5 % (0.0-0.5); Lymphocytes Percent Auto 32.9 % (20.5-60.0); Mean Corpuscular HGB Conc 32.7 g/dL (29.9-35.2); Mean Corpuscular Hemoglobin 31.4 pg (26.7-34.0); Mean Corpuscular Volume 95.9 fL (81.0-99.0); Mean Platelet Volume 10.7 fL (9.5-13.5); Monocytes Percent Auto 15.9 % (1.7-12.0); Neutrophils Absolute Auto 2.5 10^3/uL (1.4-6.5); Neutrophils Percent Auto 41.7 % (43.0-75.0); Platelet Count 246 10^3/uL (150-450); Red Blood Count 3.92 10^6/uL (4.20-5.40); Red Cell Distribution Width 12.2 % (11.0-15.0); White Blood Count 6.1 10^3/uL (4.0-11.0)
[2024-04-20 16:24] LABS: Erythrocyte Sedimentation Rate 30 mm/hr (<=20)
[2024-04-20 16:38] LABS: INR 0.94; Partial Thromboplastin Time 28.2 sec (22.3-36.2)
== END 2024-04-20 16:00 | disposition home or self-care (01) ==
LOC: LAB 16:00
PROVIDERS: PCP Nurse Practitioner; Visit Provider Nurse Practitioner
DX: L50.9 Urticaria, unspecified (principal)
CPT/HCPCS: 36415; 85025; 85610; 85652; 85730

== ENCOUNTER 2024-05-12 14:57 | Outpatient (OUT) | payer MEDICARE, SELFPAY ==
[2024-05-12 15:16] LABS: Basophils Percent Auto 0.7 % (0.2-2.0); Eosinophils Absolute Auto 0.3 10^3/uL (0.0-0.7); Eosinophils Percent Auto 5.8 % (0.9-7.0); Hematocrit 39.5 % (36.0-48.0); Hemoglobin 12.8 g/dL (12.0-16.0); Immature Granulocytes Abs Auto 0.02 10^3/uL (0.00-0.03); Immature Granulocytes Pct Auto 0.3 % (0.0-0.5); Lymphocytes Percent Auto 33.1 % (20.5-60.0); Mean Corpuscular HGB Conc 32.4 g/dL (29.9-35.2); Mean Corpuscular Hemoglobin 30.5 pg (26.7-34.0); Mean Platelet Volume 10.8 fL (9.5-13.5); Monocytes Absolute Auto 0.9 10^3/uL (0.3-0.8); Monocytes Percent Auto 15.1 % (1.7-12.0); Neutrophils Absolute Auto 2.7 10^3/uL (1.4-6.5); Platelet Count 273 10^3/uL (150-450); Red Cell Distribution Width 11.9 % (11.0-15.0); White Blood Count 5.9 10^3/uL (4.0-11.0)
== END 2024-05-12 14:58 | disposition home or self-care (01) ==
LOC: LAB 15:00
PROVIDERS: PCP Nurse Practitioner; Visit Provider Nurse Practitioner
DX: R79.89 Other specified abnormal findings of blood chemistry (principal)
CPT/HCPCS: 36415; 85025

== ENCOUNTER 2024-08-17 13:49 | Outpatient (OUT) | payer MEDICARE, SELFPAY ==
--- OUTSIDE RECORDS SUMMARY | 2024-08-17 13:56 | XMS_ITS | CCD ---
Author Organization [facility] Care Team Providers Care Carpenter Cradle And Dolly Name Role Phone Unavailable Primary Care Provider UnavailCaitlin Choi Primary Care Provider DO Fernando Ragsdale Attending Provider NON STAFF Primary Care Provider UnavailCaitlin Choi Primary Care Provider Jaelyn Bright Unavailable CAITLIN FINCH Primary Care Physician Caitlin Finch Primary Care Provider [phone] AICHHOLZ, HAND II CUTTER CAITLIN Primary Care Unavailable MIGUEL ., BENEDICT Admitting Unavailable BENEDICT WONG Attending Unavailable MIGUEL ., BENEDICT Consulting Unavailable REGAN ., DR JAFFE Admitting Unavailable AICHHOLZ, HAND II CUTTER CAITLIN Primary Care Unavailable REGAN ., DR JAFFE Attending Unavailable DR NOAH DIAZ Consulting Unavailable DR ALANNAH HURTADO Consulting Unavailable KIRILL Laboy, DR WILSON Consulting Unavailable JANA MARTIN Consulting Unavailable AICHHOLZ, HAND II CUTTER CAITLIN Consulting Unavailable AICHHOLZ, HAND II CUTTER CAITLIN Primary Care Unavailable AICHHOLZ, HAND II CUTTER CAITLIN Admitting Unavailable AICHHOLZ, HAND II CUTTER CAITLIN Attending Unavailable ANDREW, DR CHIDI Kumar Consulting Unavailable AICHHOLZ, HAND II CUTTER CAITLIN Consulting Unavailable AICHHOLZ, HAND II CUTTER CAITLIN Primary Care Unavailable AICHHOLZ, HAND II CUTTER CAITLIN Admitting Unavailable AICHHOLZ, HAND II CUTTER CAITLIN Attending Unavailable PAWAN ., DR SIM Admitting Unavailable AICHHOLZ, HAND II CUTTER CAITLIN Primary Care Unavailable PAWAN ., DR SIM Attending Unavailable PAWAN ., DR SIM Consulting Unavailable AICHHOLZ, HAND II CUTTER CAITLIN Primary Care Unavailable AICHHOLZ, HAND II CUTTER CAITLIN Admitting Unavailable AICHHOLZ, HAND II CUTTER CAITLIN Attending Unavailable ANDREW, DR CHIDI Kumar Consulting Unavailable KIRILL ., DR WILSON Admitting Unavailable AICHHOLZ, HAND II CUTTER CAITLIN Primary Care Unavailable KIRILL ., DR WILSON Attending Unavailable HAY ., DR WILSON Consulting Unavailable Aichholremigio, Caitlin Gemini Unavailable Unavailable Unavailable Caitlin Finch. Primary Care Provider Calos Watkinsf Referring Unavailable Aichminerva, Caitlin J Primary Care Unavailable Diaz, Shaneka Attending Unavailable Diaz, Shaneka Admitting Unavailable Diaz, Shaneka Attending Unavailable Diaz, Shaneka Referring Unavailable Aichholz, Mrs. Caitlin Gemini Primary Care Unavailab le Diaz, Shaneka Attending Unavailable Diaz, Shaneka Referring Unavailable Aichholz, Mrs. Caitlin Gemini Primary Care Unavailab le Calos Watkinsf Attending Unavailable Aichholz, Mrs. Caitlin Gemini Primary Care Unavailab le Diaz, Shaneka Attending Unavailable Diaz, Shaneka Referring Unavailable Aichholz, Mrs. Caitlin Gemini Primary Care Unavailab le Aichholz, Mrs. Caitlin Gemini Primary Care Unavailab le Diaz, Shaneka Attending Unavailable Aichholz, Mrs. Caitlin Gemini Primary Care Unavailab le Diaz, Shaneka Attending Unavailable DIAZ, SHANEKA Attending Unavailable AICHHOLZ, CAITLIN GEMINI Primary Care Unavailable Ramona Jimenez Unavailable Caitlin Finch Primary Care Provider Stef MATERIAL DISTRIBUTOR, Caitlin Unavailable Ugo Ramsay MD Primary Care Provider CAITLIN FINCH. Primary Care Unavailable PARINJA, KEYLA Referring Unavailable AICHMINERVA CAITLIN J. Primary Care Unavailable PARINJA, KEYLA Referring Unavailable AICHMINERVA, CAITLIN J. Primary Care Unavailable PARINJA, KEYLA Referring Unavailable AICHHOLRemigio CAITLIN J. Primary Care Unavailable PARINJA, KEYLA Referring Unavailable AICHHOLRemigio, CAITLIN J. Primary Care Unavailable PARINJA, KEYLA [...] Primary Care Unavailable PATRICIA CORDERO Referring Unavailable AICHHOLRemigio, CAITLIN J. Primary Care Unavailable PARINJA, KEYLA Referring Unavailable AICHHOLRemigio, CAITLIN J. Primary Care Unavailable PATRICIA CORDERO M Referring Unavailable AICHHOLRemigio, CAITLIN J. Primary Care Unavailable PARINJA, KEYLA Referring Unavailable AICHHOLRemigio, CAITLIN J. Primary Care Unavailable PARINJA, KEYLA Referring Unavailable NOEMI GODINEZ Attending Unava ilable AICÁLVAOR, CAITLIN J. Primary Care Unavailable AICHHOLRemigio, CAITLIN J. Primary Care Unavailable PARINJA, KEYLA Referring Unavailable AICHHOLRemigio, CAITLIN J. Primary Care Unavailable PARINJA, KEYLA Referring Unavailable AichholCaitlin Heck Primary Care Provider CAITLIN FINCH. Primary Care Unavailable FRANK DIAZ Referring Unavailabl morro DIAZ, FRANK BILLINGSLEY Referring Unavailabl e CAITLIN FINCH. Primary Care Unavailable FRANK DIAZ Attending Unavailabl e FRANK DIAZ Referring Unavailabl e CAITLIN FINCH. Primary Care Unavailable Ugo Ramsay MD Primary Care Provider Aicálvaro MATERIAL DISTRIBUTOR, Caitlin Unavailable Stef MATERIAL DISTRIBUTOR, Caitlin Unavailable CAITLIN FINCH Attending Unavailable CAITLIN FINCH Attending Unavailable LUKAS JHAVERI Attending Unavailable LUKAS JHAVERI Referring Unavailable CAITLIN FINCH Attending Unavailable SHARA ELKINS Attending Unavailable LUKAS JHAVERI Referring Unavailable LUKAS JHAVERI Attending Unavailable PAUL HENDRIX Attending Unavailable LUKAS JHAVERI Referring Unavailable CAITLIN FINCH Attending Unavailable SHARA ELKINS Attending Unavailable LUKAS JHAVERI Referring Unavailable LUKAS JHAVERI Attending Unavailable ALISON CAGE Attending Unavailable STEF, CAITLIN Attending Unavailable AICÁLVARO, CAITLIN Attending Unavailable LUKAS JHAVERI Attending Unavailable CAITLIN FINCH Attending Unavailable ALISON CAGE Attending Unavailable WADE LAURENT Attending Unavailable CAITLIN FINCH Referring Unavailable AICÁLVARO, CAITLIN J Primary Care Unavailable WADE LAURENT Attending Unavailable AICLeanneHOLZ, CAITLIN J Referring Unavailable AICHHOLZ, CAITLIN J Primary Care Unavailable WADE LAURENT Attending Unavailable AICHHOLZ, CAITLIN J Referring Unavailable AICHHOLZ, CAITLIN J Primary Care Unavailable WADE LAURENT Attending Unavailable AICHHOLZ, CAITLIN J Referring Unavailable AICHHOLZ, CAITLIN J Primary Care Unavailable WADE LAURENT Attending Unavailable AICHHOLZ, CAITLIN J Referring Unavailable AICHHOLZ, CAITLIN J Primary Care Unavailable RAFAL COLIN Attending Unavailable Roney VILLALTA Attending Unavailable Allergies Allergy Classification Reported Allergen(s) Allergy Type Date of Onset Reaction(s) Facility (9 sources) bee pollen Propensity to adverse reactions to drug 05-27-20 17 [place], [place] (20 sources) Metoclopramide; Translations: [metoclopramide] Drug Allergy 05-27-20 17 Feeling agitated (finding) [place], [place] (11 sources) Penicillins; Translations: [PENICILLINS] Propensity to adverse reactions to drug 05-27-20 17 [place], [place] (17 sources) Amitriptyline; Translations: [AMITRIPTYLINE] Drug Allergy 04-30-20 21 [facility] (2 sources) Penicillin V Drug Allergy rash [place] Other (4 sources) Penicillin; Translations: [penicillin] Drug Allergy Eruption of skin (disorder) [facility] [place] (5 sources) Penicillins Propensity to adverse reactions to drug 05-27-20 17 [facility] (4 sources) Pollen Propensity to adverse reactions to drug 05-27-20 17 [facility] Work Phone: (2 sources) Iothalamate; Translations: [Reglan] Drug Allergy 12-09-19 16 [facility] (1 source) Penicillins Drug allergy (disorder) 08-31-20 14 [facility] (4 sources) Penicillins; Translations: [Penicillins] Allergy to drug (finding) Hives -[facility] 250 DO Work Phone: (1 source) Metoclopramide Drug Allergy 05-13-20 23 [facility] (1 source) Penicillins Drug allergy (disorder) 05-13-20 [facility] (1 source) Metoclopramide; Translations: [METOCLOPRAMIDE HCL] Drug Allergy 07-15-20 [facility] 3 Repository (1 source) Penicillin G Drug Allergy 09-24-20 Unknown [employer] [facility] 1-800-DENTIST Other (1 source) Allergies Reconciled Propensity to adverse reactions Unknown [facility] 1-800-DENTIST Other (10 sources) Amoxicillin Drug Allergy 06-25-20 Rash [facility] (10 sources) Penicillins Drug Intolerance 06-22-20 [facility] (2 sources) Bee pollen; Translations: [BEE POLLEN] Drug Allergy 05-27-20 [facility] (2 sources) buPROPion; Translations: [BUPROPION HCL] Drug Allergy 04-21-20 [facility] (9 sources) Bee pollen Propensity to adverse reactions 05-27-20 [facility] Healthcare Work Phone: (9 sources) buPROPion Drug Allergy 04-21-20 [facility] Medications Current Medications Medication Drug Class(es) Dates Sig (Normalized) Sig (Original) Tylenol (3 sources) Start: 09-01-2022 Tylenol Oral, Refills(s) 0 [...] or migraine. 12 tablet 0 01/09/2022 Active [id number] 200 actuat albuterol 0.09 mg/actuat metered dose inhaler (9 sources) beta2-Adrenergic Agonist Start: 04-12-2024 take 2 puff(s) by inhalation every six hours for wheezing albuterol HFA 90 mcg/act inhaler Indications: Chronic obstructive pulmonary disease, unspecified COPD type (CMS/HCC) Inhale 2 puffs every 6 (six) hours if needed for wheezing 18 g 1 04/12/2024 Active Start: 10-13-2023 take 2 puff(s) by in halation every six hours for wheezing albuterol HFA 90 mcg/act inhaler Indications: Chronic obstructive pulmonary disease, unspecified COPD type ([facility]) Inhale 2 puffs every 6 (six) hours [...] or wheezing for 21 *Pick strength-form from [facility] for eRX* Jun, Active Atogepant (Qulipta) 60 MG tablet (9 sources) take 1 tablet by mouth once daily Atogepant (Qulipta) 60 MG tablet Take 60 mg by mouth Daily Active azithromycin 250 mg oral tablet (1 source) Macrolide Antimicrobial Azithromycin 250 MG as directed Orally Active 120 actuat budesonide 0.16 mg/actuat / formoterol fumarate 0.0048 mg/actuat / glycopyrrolate 0.009 mg/actuat metered dose inhaler (9 sources) Corticosteroid, beta2-Adrenergic Agonist take 2 puff(s) by mouth in the morning Budeson-Glycopyrrol -Formoterol (Breztri Aerosphere) 160-9-4.8 MCG/ACT aerosol Indications: Pulmonary Emphysema Inhale 2 puffs in the morning and 2 puffs before bedtime. Rinse mouth after use. Active buPROPion (5 sources) Aminoketone buPROPion HCl [...] tablet 0 12/04/2023 Active Start: 04-21-2023 take 0.5 mg by mouth twice daily as needed for anxiety clonazePAM (KlonoPIN) 1 MG tablet Take 0.5 mg by mouth 2 (two) times a day as needed for anxiety or seizures 04/21/2023 Active Start: 04-21-2023 take 1 tablet by loan th twice daily as needed for anxiety clonazePAM (KlonoPIN) 1 MG tablet Take 1 mg by mouth 2 (two) times a day as needed for anxiety or seizures. 0 04/21/2023 Active Start: 09-24-2022 KlonoPIN 0.5MG KlonoPIN( 0.5MG Oral two times daily ) Active -Hx Entry Oral two times daily for 0 *Pick strength-form from [facility] for eRX* Aug, Active Start: 05-05-2017 Klonopin 1 mg Tab See Instructions, tid prn, Refills(s) 0 Start Date: 06/06/21 Status: Ordered take 1 tablet by loan th every twelve hours as needed clonazePAM 1 MG Oral Tablet TAKE 1 TABLET EVERY 12 HOURS NEEDED. Quantity: 0 Refills: 0 Ordered: 23-Apr-2023 DO Active dextromethorphan hydrobromide 1.5 mg/ml / pyrilamine maleate 1.5 mg/ml oral solution (1 source) Uncompetitive H-sozgco-T-aspartate Receptor Antagonist, Sigma-1 Agonist Start: 09-29-2023 take 10 mL by mouth every eight hours Louisa DM 7.5-7.5 MG/5ML 10 mL Orally every 8 hours for 5 days Sep, Active dicyclomine hydrochloride 20 mg oral tablet (1 source) Anticholinergic Start: 04-06-2023 dicyclomine (BENTYL) 20 MG tablet Take by mouth 0 04/06/2023 Active Erenumab-aooe (AIMOVIG SC) (6 sources) Erenumab-aooe (AIMOVIG SC) Inject into the skin 0 Active {2 (0.2 ML) (esketamine 140 MG/ML Nasal Arion [Spravato]) } Pack [Spravato 56 MG Dose Kit] (7 sources) Start: 12-22-2022 Spravato 28 mg (56 mg dose) nasal spray mg, Nasal, qWeek, Refills(s) 0 Start Date: 12/22/22 Status: Ordered esketamine (SPRA VATO) 84 mg (28 mg x 3) nasal spray Administer 42 mg into each nostril every 14 (fourteen) days. 0 Active esketamine (SPRA VATO) 28 MG/DEVICE SOPK nasal solution 3 sprays by Nasal route every 14 days 0 Active esketamine (Spra vato) 2 sprays/28 mg per device solution therapy Administer into each nostril 1 (one) time. 0 Active 168 hr estradiol 0.71146 mg/hr transdermal system (9 sources) Estrogen Start: 06-22-2024 estradiol (Climara) 0.05 MG/24HR Place 1 patch on the skin 1 (one) time per week 06/22/2024 Active Ethinyl Estradiol / Levonorgestrel (14 sources) Progestin, Estrogen, Progestin-containi ng Intrauterine Device Start: 01-25-2020 take 1 tablet [...] , Major depressive disorder, recurrent episode, moderate (CMS-HCC) Take 2 capsules (80 mg total) by mouth in the morning. 180 capsule 3 09/01/2023 Active Start: 05-11-2017 take 1 mg by mouth once daily Prozac 40 mg Cap mg cap(s), Oral, Daily, Refills(s) 0 Start Date: 06/06/21 Status: Ordered 30 actuat fluticasone furoate 0.1 mg/actuat / umeclidinium 0.0625 mg/actuat / vilanterol 0.025 mg/actuat dry powder inhaler (2 sources) Anticholinergic, Corticosteroid, beta2-Adrenergic Agonist Start: 10-13-2023 End: 11-12-2023 take 1 puff(s) by inhalation once daily edskybywrsr-plwmolvkp-gxwesz (TRELEGY ELLIPTA) 100-62.5-25 MCG/ACT AEPB inhaler Inhale 1 puff into the lungs daily 0 10/13/2023 11/12/2023 Active Start: 10-13-2023 take 1 puff(s) by mo [facility] in the morning Cmtkvuzwiuz-Sqxaezlsc-Irvagy (Trelegy Ellipta) 100-62.5-25 MCG/ACT aerosol powder Indications: Chronic Obstructive Pulmonary Disease , Pulmonary Emphysema Inhale 1 puff in the morning. Rinse mouth after use. 1 each 3 10/13/2023 Active gabapentin 800 mg oral tablet (12 sources) Anti-epileptic Agent Start: 07-22-2022 gabapenti n 800 mg Tab Refills(s) 0 Start Date: 07/06/23 Status: Ordered Start: 06-06-2021 take 1 mg by mouth t hree times daily gabapentin 300 mg Cap mg cap(s), Oral, TID, Refills(s) 0 Start Date: 06/06/21 Status: Ordered take 1 tablet by loan th three times daily Gabapentin 800 MG Oral Tablet TAKE 1 TABLET 3 TIMES DAILY. Quantity: 0 Refills: 0 Ordered: 23-Apr-2023 DO Active Ibuprofen (10 sources) Nonsteroidal Anti-inflammatory Drug Start: 09-01-2022 ibuprofen [...] Active levETIRAcetam 500 mg oral ta blet (20 sources) Star t: 02-26 take 1 tablet by mouth every twelve hours levETIRAcetam (Keppra) 500 MG tablet Take 500 mg by mouth every 12 (twelve) hours. 03/11/2023 Active Start: 09-24-2022 Keppra keppra( 500mg at bedtime ) Active -Hx Entry at bedtime for 0 *Pick strength-form from [facility] for eRX* Aug, Active Start: 09-01-2022 take [...] DO Active modafinil 200 mg oral tablet (20 sources) Sympathomimetic-like Agent Start: 06-09-2023 take 1 tablet by mouth in the morning modafinil (Provigil) 200 MG tablet Take 200 mg by mouth in the morning. 06/09/2023 Active Start: 07-13-2022 take 1 tablet by loan th in the morning modafinil (Provigil) 200 MG tablet Take 200 mg by mouth in the morning. 0 06/09/2023 Active modfinil 200mg bid (1 source) Start: 09-24-2022 modfinil 200mg bid modfinil 200mg bid( ) Active -Hx Entry for 0 *Reorder from [facility] for eRx and Interaction Alerts* Aug, Active naratriptan (1 source) Serotonin-1b and Serotonin-1d Receptor Agonist Start: 09-24-2022 naratriptan naratriptan( 2.5mg as needed for breakthrough migraines ) Active -Hx Entry as needed for breakthrough migraines for 0 JOSE *Reorder from [facility] for eRx and Interaction Alerts* Aug, Active nystatin 232751 unt/ml oral suspension (2 sources) Polyene Antifungal Start: 07-18-2022 take 4 mL by mouth three times daily Nystatin [id number] UNIT/ML 4 ml Mouth/Throat tid for 7 days Jun, Active Start: 07-18-2022 take 4 mL by mouth t hree times daily Nystatin [id number] UNIT/ML 4 ml Mouth/Throat tid for 7 days Jun, Active Phentermine (6 sources) Sympathomimetic Amine Anorectic Start: 12-22-2022 take 1 mg by mouth once daily Adipex-P mg, Oral, Daily, Refills(s) 0 Start Date: 12/22/22 Status: Ordered Start: 12-01-2022 take 1 tablet by loan th once daily phentermine (ADIPEX-P) 37.5 MG tablet Take 1 tablet by mouth daily. 0 12/01/2022 Active potassium citrate 10 meq extended release oral tablet (18 sources) Start: 02-23-2024 End: 02-17-2025 Urocit-K 10 mEq Tab-ER 20 mE q, 2 tab(s), Oral, BID for 90 day(s), 360 tab(s), Refill(s) 3, [facility] #[id number], 165, cm, 07/06/23 13:33:00 EDT, Height/Length Dosing, 75.2, kg, 07/06/23 13:33:00 EDT, Weight Dosing Start Date: 02/23/24 Stop Date: 02/17/25 Status: Ordered Start: 06-17-2023 take 1 tablet by loan th in the morning potassium citrate CR (Urocit-K-10) 10 mEq ER tablet Take 20 mEq by mouth in the morning and 20 mEq before bedtime. 06/17/2023 Active Start: 05-12-2023 potassium citr ate (UROCIT-K) 5 MEQ (540 MG) extended release tablet Daily 0 05/12/2023 Active take 2 tablets by mo uth twice daily potassium citrate (UROCIT-K) 10 mEq [...] 38 tablet 0 05/01/2023 05/21/2023 Active pregabalin 200 mg oral capsule (11 sources) Start: 07-26-2024 End: 08-25-2024 take 1 capsule by mouth in the morning pregabalin (Lyrica) 200 MG capsule Indications: Fibromyalgia Take 1 capsule (200 mg) by mouth in the morning and 1 capsule (200 mg) before bedtime. 60 capsule 2 07/26/2024 08/25/2024 Active Start: 04-05-2024 take 1 capsule by mo uth in the morning pregabalin (Lyrica) 200 MG capsule Indications: Fibromyalgia Take 1 capsule (200 mg) by mouth in the morning and 1 capsule (200 mg) before bedtime. 60 capsule 2 04/05/2024 Active Start: 10-13-2023 take 1 capsule by mo uth in the morning pregabalin (Lyrica) 150 MG capsule Indications: Fibromyalgia Take 1 capsule (150 mg) by mouth in the morning and 1 capsule (150 mg) before bedtime. 60 capsule 2 10/13/2023 Active Start: 08-13-2023 take 1 capsule by mo uth twice daily pregabalin (LYRICA) 75 mg capsule TAKE 1 CAPSULE BY MOUTH TWICE DAILY 0 08/13/2023 Active promethazine hydrochloride 25 mg oral tablet (3 sources) Phenothiazine Start: 06-30-2024 End: 07-05-2024 take 1 tablet by mouth every eight hours as needed for nausea and vomiting and nausea and nausea promethazine (Phenergan) 25 MG tablet Indications: Nausea Take 1 tablet (25 mg) by mouth every 8 (eight) hours if needed for nausea or vomiting for up to 5 days 15 tablet 06/30/2024 07/05/2024 Active End: 06-30-2024 take 2 tablets by mouth every eight hours as needed for nausea and vomiting promethazine (Phenergan) 12.5 MG tablet Take 25 mg by mouth every 8 (eight) hours if needed for nausea or vomiting 06/30/2024 Discontinued (Reorder) Spravato 28 mg (56 mg dose) nasal [...] pills in 24 hours *Pick strength-form from [facility] for eRX* Aug, Active Start: 04-26-2017 End: 09-07-2024 SUMAtriptan (Imitrex) 100 MG tablet Indications: Chronic migraine without aura without status migrainosus, not intractable (CMS/HCC) Take 1 tablet (100 mg) by mouth 1 (one) time if needed for migraine Take 100 mg by mouth 1 (one) time if needed for migraine, may repeat again in 2 hours if needed. No more than 2 pills in 24 hours, no more than twice in 1 week 9 tablet 2 08/08/2024 09/07/2024 Active Start: 04-26-2017 SUMAtriptan (I MITREX) 100 mg tablet take 1 tablet by loan th [...] 12/02/2022 Active tiZANidine 4 mg oral tablet (20 sources) Central alpha-2 Adrenergic Agonist Start: 04-05-2021 End: 07-31-2024 tiZANidine (Zanaflex) 4 MG tablet Indications: Fibromyalgia Take 1 tablet (4 mg) by mouth as needed at bedtime for muscle spasms 30 tablet 3 07/01/2024 Active take 1 tablet by loan th once daily at bedtime tiZANidine (ZANAFLEX) 4 mg tablet Take 4 mg by mouth once daily at bedtime. 0 Active Completed/Discontinued Medications Medication Drug Class(es) Dates Sig (Normalized) Sig (Original) famotidine 20 mg oral tablet (2 sources) Histamine-2 Receptor Antagonist Start: 04-20-2024 End: 06-28-2024 take 1 tablet by mouth in the morning famotidine (Pepcid) 20 MG tablet Indications: Urticaria Take 1 tablet (20 mg) by mouth in the morning and 1 tablet (20 mg) before bedtime. Do all this for 15 days. 30 tablet 04/20/2024 06/28/2024 Discontinued (Therapy completed) K-Effervescent 25 mEq oral tablet, effervescent (1 source) Start: 12-22-2022 End: 12-17-2023 take 1 tablet by mouth twice daily K-Effervescent 25 mEq oral tablet, effervescent 25 mEq = 1 tab(s), Oral, BID, X 30 day(s), # 60 tab(s), Refills(s) 11, Pharmacy: [facility] #[id number], 165, cm, 12/22/22 13:39:00 EDT, Height/Length Dosing, [...] [Pelvic and perineal pain] Onset: 07-02-2022 Episodic Acute and chronic tonsillitis (1 source) Acute tonsillitis; Translations: [Acute tonsillitis, unspecified] Episodic Acute bronchitis (1 source) Acute bronchitis due to other specified organisms Episodic Adjustment disorders (10 sources) Adjustment disorder; Translations: [Adjustment disorder, unspecified] Onset: 08-26-2023 08-26-2023 Chronic Administrative/social admission (2 sources) Person consulting for explanation of examination or test findings; Translations: [Person consulting for explanation of examination or test findings] Onset: 07-30-2023 Episodic Anxiety disorders (20 sources) Mixed anxiety and depressive disorder; Translations: [Anxiety disorder, unspecified] Onset: 07-20-2017 06-06-2021 Chronic Chronic obstructive pulmonary disease and bronchiectasis (10 sources) Pulmonary emphysema; Translations: [Other emphysema] Onset: 08-26-2023 09-09-2023 Chronic Chronic obstructive pulmonary disease and bronchiectasis (1 source) Bronchitis; Translations: [Bronchitis, not specified as acute or chronic] Episodic Conditions associated with dizziness or vertigo (1 source) Dizziness and giddiness; Translations: [Dizziness and giddiness] Episodic Epilepsy; convulsions (20 sources) Other generalized epilepsy and epileptic syndromes, not intractable, without status epilepticus; Translations: [Grand mal seizure] Onset: 07-15-2023 10-13-2023 Chronic Gastritis and duodenitis (3 sources) Chronic antral gastritis 07-03-2021 Chronic Genitourinary symptoms and ill-defined conditions (10 sources) Urge incontinence of urine; Translations: [Urge incontinence] Onset: 12-17-2023 12-17-2023 Chronic Genitourinary symptoms and ill-defined conditions (11 sources) Dysuria; Translations: [Dysuria] Onset: 07-30-2022 Episodic Headache; including migraine (20 sources) Migraine; Translations: [Migraine, unspecified, without mention of intractable migraine without mention of status migrainosus] Onset: 07-15-2023 Resolved: 05-19-2024 06-06-2021 Chronic Headache; including migraine (1 source) Headache; including migraine; Translations: [HEADACHE UNSPECIFIED] Onset: 02-11-2023 Menopausal disorders (2 sources) Menopausal symptom; Translations: [Menopausal and female climacteric states] Onset: 11-11-2023 11-11-2023 Chronic Mood disorders (20 sources) Severe recurrent major depression without psychotic features; Translations: [Major depressive disorder, recurrent severe without psychotic features] Onset: 07-20-2017 Resolved: 11-25-2021 11-17-2022 Chronic Mood disorders (1 source) Mood disorders; Translations: [DEPRESSION UNSPECIFIED] Onset: 02-11-2023 Nausea and vomiting (8 sources) Nausea with vomiting, unspecified; Translations: [Nausea] Onset: 02-11-2023 06-30-2024 Episodic Other aftercare (1 source) Other termite control technician (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) drug therapy; Translations: [OTH HEAT AND FROST INSULATOR CURRENT DRUG THERAPY] Onset: 02-11-2023 Episodic Other circulatory disease (2 sources) Orthostatic hypotension; Translations: [Orthostatic hypotension] 07-11-2024 Episodic Other female genital disorders (1 source) Postcoital bleeding; Translations: [Postcoital and contact bleeding] Chronic Other female genital disorders (2 sources) H/O: menorrhagia; Translations: [History of menorrhagia] Episodic Other female genital disorders (1 source) Vaginal discomfort; Translations: [Unspecified condition associated with female genital organs and menstrual cycle] 11-11-2023 Episodic Other gastrointestinal disorders (16 sources) Irritable bowel syndrome; Translations: [Mixed irritable bowel syndrome] Onset: 10-13-2023 07-03-2021 Chronic Other gastrointestinal disorders (3 sources) Alteration in bowel elimination 06-11-2021 Episodic [...] nervous system and sense organs] Episodic Other nervous system disorders (9 sources) Ataxia; Translations: [Ataxia, unspecified] Onset: 06-13-2024 06-13-2024 Episodic Other nervous system disorders (11 sources) Paresthesia; Translations: [Paresthesia of skin] Onset: 06-13-2024 06-13-2024 Episodic Other non-traumatic joint disorders (4 sources) Joint pain; Translations: [Pain in unspecified joint] 06-06-2021 Episodic Other nutritional; endocrine; and metabolic disorders (1 source) Obesity; Translations: [Obesity, unspecified] Chronic Other nutritional; endocrine; and metabolic disorders (9 sources) Body mass index 30+ - obesity; Translations: [Obesity, unspecified] Onset: 02-16-2024 02-16-2024 Chronic Other nutritional; endocrine; and metabolic disorders (3 sources) Unintentional weight loss 06-06-2021 Episodic Other nutritional; endocrine; and metabolic disorders (4 sources) Overweight in adulthood with body mass index of 25 or more but less than 30; Translations: [Overweight] Episodic Other nutritional; endocrine; and metabolic disorders (1 source) Abnormal weight loss; Translations: [Abnormal weight loss] Episodic Other nutritional; endocrine; and metabolic disorders (1 source) Overweight; Translations: [Overweight] Episodic Other skin disorders (1 source) Disorder of skin and/or subcutaneous tissue; Translations: [Disorder of the skin and subcutaneous tissue, unspecified] Episodic Other skin disorders (9 sources) Skin lesion; Translations: [Disorder of the skin and subcutaneous tissue, unspecified] Onset: 05-19-2024 05-19-2024 Episodic Other upper respiratory infections (5 sources) Acute pharyngitis, unspecified; Translations: [Sore throat symptom] Episodic Residual codes; unclassified (1 source) Other [...] other diseases of the circulatory system] Episodic Residual codes; unclassified (1 source) Flushing; Translations: [Flushing] Onset: 06-21-2024 Episodic Residual codes; unclassified (13 sources) Memory impairment; Translations: [Other amnesia] Onset: 06-13-2024 06-13-2024 Episodic Screening and history of mental health and substance abuse codes (5 sources) Personal history of nicotine dependence; Translations: [Ex-smoker] Onset: 07-09-2022 Episodic Unclassified (1 source) Cancer cervix screening status; Translations: [Screening for cervical cancer] Unclassified (2 sources) Patient encounter status; Translations: [Screening mammogram, encounter for] Unclassified (3 sources) Body mass index 20-24 - normal [...] Classification Problem Date Documented Da te Episodic/Chronic Allergic reactions (12 sources) Contact dermatitis due to poison loli; Translations: [Allergic contact dermatitis due to plants, except food] Onset: 05-01-2023 Episodic Calculus of urinary tract (20 sources) Kidney stone; Translations: [Calculus of kidney] Onset: 07-08-2022 Episodic Epilepsy; convulsions (13 sources) Seizure; Translations: [Unspecified convulsions] Onset: 01-07-2022 Resolved: 04-20-2024 08-26-2023 Episodic Fluid and electrolyte disorders (1 source) Dehydration; Translations: [DEHYDRATION] Onset: 07-09-2022 Episodic Headache; including migraine (10 sources) Headache; Translations: [Headache] Onset: 10-13-2023 Resolved: 10-13-2023 10-13-2023 Episodic Malaise and fatigue (19 sources) Fatigue; Translations: [Weakness] Onset: 02-09-2023 06-06-2021 Episodic Mycoses (10 sources) Candidal stomatitis; Translations: [Candidiasis of mouth] Onset: 11-27-2023 Episodic Nonspecific chest pain (10 sources) Chest pain; Translations: [Chest pain, unspecified] Onset: 12-17-2023 12-17-2023 Episodic Other circulatory disease (1 source) Hypotension, unspecified; Translations: [HYPOTENSION UNSPECIFIED] Onset: 07-09-2022 Episodic Other connective tissue disease (20 sources) Fibromyalgia; Translations: [Myalgia and myositis, unspecified] Onset: 04-30-2021 06-06-2021 Episodic Other connective tissue disease (4 sources) Myalgia, unspecified site; Translations: [MYALGIA UNSPECIFIED SITE] Onset: 07-06-2022 Episodic Other female genital disorders (1 source) Unspecified condition associated with female genital organs and menstrual cycle; Translations: [Unspecified condition associated with female genital organs and menstrual cycle] Onset: 11-11-2023 Episodic Other gastrointestinal disorders (9 sources) Dysphagia; Translations: [Dysphagia, unspecified] Onset: 12-17-2023 12-17-2023 Episodic Other nervous system disorders (9 sources) Median nerve neuritis; 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, right upper limb] Onset: 12-17-2023 Resolved: 12-17-2023 12-17-2023 Chronic Other non-traumatic joint disorders (9 sources) Hip pain; Translations: [Pain in right hip] Onset: 12-17-2023 03-07-2024 Episodic Other non-traumatic joint disorders (11 sources) Enthesopathy of hip region; Translations: [Other specified joint disorders, right hip] Onset: 03-07-2024 03-07-2024 Episodic Other nutritional; endocrine; and metabolic disorders (9 sources) Abnormal weight gain; Translations: [Abnormal weight gain] Onset: 03-22-2024 03-22-2024 Episodic Other screening for suspected conditions (not mental disorders or infectious disease) (20 sources) Mammography abnormal; Translations: [Electrocardiogram abnormal] Onset: 06-09-2023 Episodic Ovarian cyst (10 sources) Cyst of left ovary; Translations: [Unspecified ovarian cyst, left side] Onset: 12-17-2023 12-17-2023 Episodic Skull and face fractures (1 source) Closed fracture of nasal bones; Translations: [Fracture of nasal bones, initial encounter for closed fracture] Resolved: 01-30-2020 Episodic Spondylosis; intervertebral disc disorders; other back problems (11 sources) Pain in thoracic spine; Translations: [Pain in thoracic spine] Onset: 12-17-2023 12-17-2023 Episodic Sprains and strains (1 source) Strain [...] of head, initial encounter] Resolved: 01-30-2020 Episodic Syncope (18 sources) Syncope; Translations: [Syncope and collapse] Onset: 06-09-2023 Episodic Unclassified (1 source) COUGH, UNSPECIFIED; Translations: [COUGH, UNSPECIFIED] Onset: 07-04-2022 Unclassified (4 sources) Patient status finding; Translations: [Patient new to provider] Unclassified (1 source) Acute candidiasis of vulva and vagina; Translations: [Acute candidiasis of vulva and vagina] Viral infection (9 sources) COVID-19; Translations: [Other specified viral infection] Onset: 12-17-2023 Resolved: 12-17-2023 12-17-2023 Episodic Results Test Name Value Interpretation Reference Range Facility [facility] Patient Letter [facility] July 12, 2024 ANDREA LONG [address] [place] [id number] : 1980 Dear Andrea, You missed your scheduled appointment on: 07/11/[address] Roney Villalta. Please note our appointment slots fill quickly. When you fail to cancel or reschedule an appointment the office is unable to fill the appointment slot that was reserved for you. In the future, we ask that you call 24 hours in advance to cancel your appointment. Our current reminder system gives you the opportunity to cancel by responding to our reminder text, phone call or email. You can also call the office to reschedule during normal business hours or use our on-line scheduling portal at your convenience. Our goal is to provide convenient and quality care to all of our patients. We appreciate your consideration regarding any future cancellations. Sincerely, [facility] [address], [place] [address] [facility] Estradiolon 06-22-2024 Estradiol <5.0 [facility] Comment on above: Result Comment: FEMALES: Normally menstruating Luteal phase 60-232 Follicular phase 31-90 Midcycle phase 60-533 Postmenopausal (untreated) <138 Fulvestrant treatment will show an increased estradiol concentration with this methodology. Alternate methodologies are available upon request. Performed By: #### E 2, LH, FSH #### [facility] [place], [place] [id number] Air Sealing Technician: Ruddy Morales MD Follicle Stim. Hormon 2023 Follicle Stim. Horm 99.6 mIU/mL Normal [facility] Comment on above: Result Comment: Refe rence Range: Male: 1.5-12.4 Ovulating Female: Follicular Phase 3.5-12.5 Ovulation Phase 4.7-21.5 Luteal Phase 1.7-7.7 Postmenopausal Female: 25.8-134.8 Performed By: #### E 2, LH, FSH #### [place] [address] [place] [address] [id number] Air Sealing Technician: Ruddy Morales MD Luteinizing Hormoneon 2023 Luteinizing Hormone 35.2 mIU/mL High 1.7-8.6 [facility] Comment on above: Result Comment: Refe rence Range: Male: 1.7-8.6 Ovulating Female: Follicular Phase 2.4-12.6 Ovulation Phase 14.0-95.6 Luteal Phase 1.0-11.4 Postmenopausal Female: 7.7-58.5 Performed By: #### E 2, LH, FSH #### [place] [address] [place] [address] [id number] Air Sealing Technician: Ruddy Morales MD Cult,Genitalon 11-14-2023 Cult,Genital Specimen Description .VAGINA Culture NORMAL URO-GENITAL JORDYN YEAST NOT MARY ALBICANS OR MARY DUBLINIENSIS MODERATE GROWTH NEGATIVE FOR GROUP B STREPTOCOCCI NEGATIVE FOR NEISSERIA GONORRHOEAE Report Status FINAL 11/14/2023 [facility] Comment on above: Performed By: #### G EC #### [place] [address] [place] [address] [id number] Air Sealing Technician: Ruddy Morales MD [facility] [address] [place] [address] [place] [address] Air Sealing Technician: Jana Mei MD ALL FOLLICLE STIMULATING HOR MONEon 11-12-2023 MHPT FOLLICLE STIM. HORM 55.5 mIU/mL [facility] Comment on above: Reference Range: Male: 1.5-12.4 Ovulating Female: Follicular Phase 3.5-12.5 Ovulation Phase 4.7-21.5 Luteal Phase 1.7-7.7 Postmenopausal Female: 25.8-134.8 Original Ordering Pr ovider: [facility] Estradiolon 11-12-2023 Estradiol 108.0 pg/mL [facility] Comment on above: FEMALES: Normally menstruating Luteal phase 60-232 Follicular phase 31-90 Midcycle phase 60-533 Postmenopausal (untreated) <138 Fulvestrant treatment will show an increased estradiol concentration with this methodology. Alternate methodologies are available upon request. [facility] Estradiol 108.0 pg/mL [facility] Comment on above: Result Comment: FEMALES: Normally menstruating Luteal phase 60-232 Follicular phase 31-90 Midcycle phase 60-533 Postmenopausal (untreated) <138 Fulvestrant treatment will show an increased estradiol concentration with this methodology. Alternate methodologies are available upon request. Performed By: #### F SH, LH, E2 #### [place] [address] [place] [address] Air Sealing Technician: Ruddy Morales MD Follicle Stim. Hormon 2023 Follicle Stim. Horm 55.5 mIU/mL [facility] Comment on above: Result Comment: Refe rence Range: Male: 1.5-12.4 Ovulating Female: Follicular Phase 3.5-12.5 Ovulation Phase 4.7-21.5 Luteal Phase 1.7-7.7 Postmenopausal Female: 25.8-134.8 Performed By: #### F SH, LH, E2 #### [place] [address] [place] [address] Air Sealing Technician: Ruddy Morales MD Follicle Stimulating Hormone on 11-12-2023 Follitropin Qn 55.5 m[IU]/mL mIU/mL [facility] Comment on above: Reference Range: Male: 1.5-12.4 Ovulating Female: Follicular Phase 3.5-12.5 Ovulation Phase 4.7-21.5 Luteal Phase 1.7-7.7 Postmenopausal Female: 25.8-134.8 Luteinizing Hormoneon 2023 Interpretation and review of laboratory results Abnormal [facility] Lutropin Qn 33.8 m[IU]/mL High [facility] Comment on above: Reference Range: Male: 1.7-8.6 Ovulating Female: Follicular Phase 2.4-12.6 Ovulation Phase 14.0-95.6 Luteal Phase 1.0-11.4 Postmenopausal Female: 7.7-58.5 Luteinizing Hormone 33.8 mIU/mL High 1.7-8.6 [facility] Comment on above: Result Comment: Refe rence Range: Male: 1.7-8.6 Ovulating Female: Follicular Phase 2.4-12.6 Ovulation Phase 14.0-95.6 Luteal Phase 1.0-11.4 Postmenopausal Female: 7.7-58.5 Performed By: #### F SH, LH, E2 #### [facility] [place] [address] Air Sealing Technician: Ruddy Morales MD PT ESTRADIOLon 11-12-2023 [facility] ESTRADIOL 108.0 pg/mL [facility] Comment on above: FEMALES: Normally menstruating Luteal phase 60-232 Follicular phase 31-90 Midcycle phase 60-533 Postmenopausal (untreated) <138 Fulvestrant treatment will show an increased estradiol concentration with this methodology. Alternate methodologies are available upon request. Original Ordering Pr [facility]ider[facility] No Panel Informationon 11-12 [facility] COVID + FLU Quick Testingon 09-29-2023 SARS-CoV-2 (COVID-19) RNA KEN+probe Ql (Unsp spec) Negative [facility] Other COVID + FLU Quick Testing Negative [employer] Other Quick Strepon 09-29-2023 S. pyogenes Org specific cx Ql (Throat) Negative [employer] [facility] 1-800-DENTIST Other Quick Strep [facility] 1-800-DENTIST Other Echocardiogramon 06-09-[address], [address] [address] TRANSTHORACIC ECHOCARDIOGRAM REPORT Patient Name: ANDREA Jason Physician: [id number] Crystal Bone MD, [facility] Study Date: 06/09/2023 Referring SHANEKA DIAZ Physician: MRN/PID: [id number] PCP: Caitlin Finch Accession/Order#: [id number] Department [facility] Location: Date of : 1980 Fellow: Gender: F Nurse: Anjelica Gaming RN Admit Date: Administrative Officer: Ana Javier RDCS, T Height: 165.10 cm CC Report to: Weight: 78.02 kg Study Type: Echocardiogram BSA: 1.86 m2 Diagnosis/ICD: R94.31-Abnormal electrocardiogram [ECG] [EKG]; R06.02-Shortness of breath; D38-Jqwdajx Indication: Former Smoker, Overweight, Fibromyalgia, COVID-19 2021 Procedure/CPT: Echo Complete w Full Doppler-51820 Study Detail: The following Echo studies were [...] 0.5 m/s (0.6-0.9m/s) PV Max P.9 mmHg 13452 Crystal Bone MD, [facility] Electronically signed on 06/12/2023 at 5:55:30 PM Final Normal [facility] CA tilt table teston 023 CA tilt table test [place] [address] Cardiology Report Signed Patient: Andrea Long MR#: [id number] : 1980 Acct:[id number] Age/Sex: 43 / F ADM Date: 05/13/23 Loc: Room: Type: [facility] Attending Dr: Shaneka Diaz MD Copies to: [...] MD 05/13/23 1556 Signed By: 05/15/23 0000 [facility] No Panel Informationon 05-13 -[facility] [address] DO Work Phone: Office Visit [...] Syncope Echocardiogram; Status:Hold For - Scheduling; Requested for:[id number]; IO Holter Monitor up to 48 Hrs; Status:Active - Perform Order; Requested for:[id number]; Tilt Table; Status:Hold For - Scheduling; Requested for:[id number]; SocHx: Former smoker Tobacco Use Screening; Status:Complete; Done: [id number] Syncope IO EKG Electrocardiogram- 12 Lead; Status:Complete; Done: [id number] Patient Instructions Please bring all medicines, vitamins, [...] shows normal sinus rhythm at 86 bpm LA interval 116 ms QRS duration 78 ms [...] further questions arise, Sincerely, Shaneka Diaz MD [facility] Surgical History Problems History of Appendectomy [...] (56 MG (more content not included)... Normal [facility] PHQ-2 VITALSon 04-23-2023 PHQ-2 VITALS Yes [facility] [place] [facility] [address] DO Work Phone: CBC AUTO DIFFon 02-09-2023 BASO # 0.0 103/ul Normal 0.0-0.1 [facility] Comment on above: Performed By: #### N A24U, [id number] #### [facility] [address] [place] [address] [address] Manjinder Forman Basophils/100 WBC (Bld) 0.8 % Normal 0.2-2.0 [facility] Comment on above: Performed By: #### N A24U, [id number] #### [facility] [address] [place] [address] [address] Manjinder Forman EO # 0.0 103/ul Normal 0.0-0.7 [facility] Comment on above: Performed By: #### N A24U, [id number] #### [facility] [address] [place] [address] Dr. Manjinder Forman Eosinophils/100 WBC (Bld) 0.8 % Critically low 0.9-7.0 [facility] Comment on above: Performed By: #### N A24U, [id number] #### [facility] [address] [place] [address] Dr. Manjinder Forman Erythrocyte distribution width (RBC) [Ratio] 12.1 % Normal 11.0-15.0 [facility] Comment on above: Performed By: #### N A24U, [id number] #### [facility] [address] [place] [address] Dr. Manjinder Forman Hematocrit (Bld) [Volume fraction] 39.0 % Normal 36.0-48.0 [facility] Comment on above: Performed By: #### N A24U, [id number] #### [facility] [address] [place] [address] Dr. Manjinder Forman Hemoglobin (Bld) [Mass/Vol] 13.0 g/dL Normal 12.0-16.0 [facility] Comment on above: Performed By: #### N A24U, [id number] #### [facility] [address] [place] [address] Dr. Manjinder Forman IG # 0.02 10e3/ul Normal 0.00-0.03 [facility] Comment on above: Performed By: #### N A24U, [id number] #### [facility] [address] [place] [address] Dr. Manjinder Forman IG % 0.5 % Normal 0.0-0.5 [facility] Comment on above: Performed By: #### N A24U, [id number] #### [facility] [address] [place] [address] Dr. Manjinder Forman LYMPH # 0.9 103/ul Critically low 1.2-3.8 [facility] Comment on above: Performed By: #### N A24U, [id number] #### [facility] [address] [place] [address] Dr. Manjinder Forman Lymphocytes/100 WBC (Bld) 21.9 % Normal 20.5-60.0 [facility] Comment on above: Performed By: #### N A24U, [id number] #### [facility] [address] [place] [address] Dr. Manjinder Forman MANUAL DIFF REQ NO Normal [facility] Comment on above: Performed By: #### N A24U, [id number] #### [facility] [address] [place] [address] Dr. Manjinder Forman MCH (RBC) [Entitic mass] 31.5 pg Normal 26.7-34.0 [facility] Comment on above: Performed By: #### N A24U, [id number] #### [facility] [address] [place] [address] Dr. Manjinder Forman MCHC (RBC) [Mass/Vol] 33.3 g/dL Normal 29.9-35.2 [facility] Comment on above: Performed By: #### N A24U, [id number] #### [facility] [address] [place] [address] Dr. Manjinder Forman MCV (RBC) [Entitic vol] 94.4 fL Normal 81.0-99.0 [facility] Comment on above: Performed By: #### N A24U, [id number] #### [facility] [address] [place] [address] Dr. Manjinder Forman MONO # 0.5 103/ul Normal 0.3-0.8 [facility] Comment on above: Performed By: #### N A24U, [id number] #### [facility] [address] [place] [address] Dr. Manjinder Forman Monocytes/100 WBC (Bld) 11.5 % Normal 1.7-12.0 [facility] Comment on above: Performed By: #### N A24U, [id number] #### [facility] [address] [place] [address] Dr. Manjinder Forman NEUT # 2.5 103/ul Normal 1.4-6.5 [facility] Comment on above: Performed By: #### N A24U, [id number] #### [facility] [address] [place] [address] [address] Manjinder Forman Neutrophils/100 WBC (Bld) 64.5 % Normal 43.0-75.0 [facility] Comment on above: Performed By: #### N A24U, [id number] #### [facility] [address] [place] [address] [address] Manjinder Forman Platelet mean volume (Bld) [Entitic vol] 10.0 fL Normal 9.5-13.5 [facility] Comment on above: Performed By: #### N A24U, [id number] #### [facility] [address] [place] [address] Dr. Manjinder Forman PLT 289 103/ul Normal 150-450 [facility] Comment on above: Performed By: #### N A24U, [id number] #### [facility] [address] [place] [address] Dr. Manjinder Forman RBC 4.13 106/ul Critically low 4.20-5.40 [facility] Comment on above: Performed By: #### N A24U, [id number] #### [facility] [address] [place] [address] Dr. Manjinder Forman WBC 3.9 103/ul Critically low 4.0-11.0 [facility] Comment on above: Performed By: #### N A24U, [id number] #### [facility] [address] [place] [address] Dr. Manjinder Forman DRUG SCREEN RAPID (URINE)on 02-09-2023 AMP Positive Abnormal NEGATIVE [facility] Comment on above: Performed By: #### D RUGRPD, ERUR, PREGU #### [facility] [address] [place] [address] Dr. Manjinder Forman BAR Negative Normal NEGATIVE [facility] Comment on above: Performed By: #### D RUGRPD, ERUR, PREGU #### [facility] [address] [place] [address] [address] Manjinder Forman BUP Negative Normal NEGATIVE [facility] Comment on above: Performed By: #### D RUGRPD, ERUR, PREGU #### [facility] [address] [place] [address] Dr. Manjinder Forman BZO Positive Abnormal NEGATIVE [facility] Comment on above: Performed By: #### D RUGRPD, ERUR, PREGU #### [facility] [address] [place] [address] [address] Manjinder Forman BAO Negative Normal NEGATIVE [facility] Comment on above: Performed By: #### D RUGRPD, ERUR, PREGU #### [facility] [address] [place] [address] [address] Manjinder Forman CUT-OFFS SEE BELOW Normal [facility] Comment on above: Result Comment: AMP (Amphetamine): [...] By: #### D RUGRPD, ERUR, PREGU #### [facility] [address] [place] [address] [address] Manjinder Forman DRUG CUT HEADER DRUG CLASS TEST SYST EM CUT-OFF CONCENTRATIONS ARE FOLLOWS: Normal [facility] Comment on above: Performed By: #### D RUGRPD, ERUR, PREGU #### [facility] [address] [place] [address] Dr. Manjinder Forman mAMP Negative Normal NEGATIVE [facility] Comment on above: Performed By: #### D RUGRPD, ERUR, PREGU #### [facility] [address] [place] [address] [address] Manjinder Forman MTD Negative Normal NEGATIVE [facility] Comment on above: Performed By: #### D RUGRPD, ERUR, PREGU #### [facility] [address] [place] [address] [address] Manjinder Forman OPI Negative Normal NEGATIVE [facility] Comment on above: Performed By: #### D RUGRPD, ERUR, PREGU #### [facility] [address] [place] [address] [address] Manjinder Forman OXY Negative Normal NEGATIVE [facility] Comment on above: Performed By: #### D RUGRPD, ERUR, PREGU #### [facility] [address] [place] [address] [address] Manjinder Forman PCP Negative Normal NEGATIVE [facility] Comment on above: Performed By: #### D RUGRPD, ERUR, PREGU #### [facility] [address] [place] [address] [address] Manjinder Forman PPX Negative Normal NEGATIVE [facility] Comment on above: Performed By: #### D RUGRPD, ERUR, PREGU #### [facility] [address] [place] [address] [address] Manjinder Forman TCA Negative Normal NEGATIVE [facility] Comment on above: Performed By: #### D RUGRPD, ERUR, PREGU #### [facility] [facility] [address] [address] [address] Manjinder Forman THC Negative Normal NEGATIVE [facility] Comment on above: Performed By: #### D RUGRPD, ERUR, PREGU #### [facility] [address] [address] [address] Manjinder Forman ER URINE PROFILEon 3 Bilirubin Ql (U) Negative Normal NEGATIVE [facility] Comment on above: Performed By: #### D RUGRPD, ERUR, PREGU #### [facility] [address] [place] [address] Dr. Manjinder Forman Clarity (U) CLEAR Normal CLEAR [facility] Comment on above: Performed By: #### D RUGRPD, ERUR, PREGU #### [facility] [address] [address] [address] Manjinder Forman Color (U) LT. YELLOW Normal YELLOW [facility] Comment on above: Performed By: #### D RUGRPD, ERUR, PREGU #### [facility] [address] [address] [address] Manjinder HARTMANNAHElsie A micrscopic examina tion will be performed if indicated. Normal [facility] Comment on above: Performed By: #### D RUGRPD, ERUR, PREGU #### [facility] [address] [address] [address] Manjinder Forman Glucose Ql (U) Negative Normal NEGATIVE [facility] Comment on above: Performed By: #### D RUGRPD, ERUR, PREGU #### [facility] [address] [address] [address] Manjinder Forman Hemoglobin Ql (U) Negative Normal NEGATIVE [facility] Comment on above: Performed By: #### D RUGRPD, ERUR, PREGU #### [facility] [address] [address] [address] Manjinder Forman Ketones Ql (U) Negative Normal NEGATIVE [facility] Comment on above: Performed By: #### D RUGRPD, ERUR, PREGU #### [facility] [address] [address] [address] Manjinder Forman LEUKOCYTES Negative Normal NEGATIVE [facility] Comment on above: Performed By: #### D RUGRPD, ERUR, PREGU #### [facility] [address] [address] [address] Manjinder Forman Nitrite Ql (U) Negative Normal NEGATIVE [facility] Comment on above: Performed By: #### D RUGRPD, ERUR, PREGU #### [facility] [address] [address] [address] Manjinder Forman pH (U) 7.0 [pH] Normal 5-9 [facility] Comment on above: Performed By: #### D RUGRPD, ERUR, PREGU #### [facility] [address] [address] [address] Manjinder Forman SPEC GRAVITY <=1.005 Abnormal 1.005-<=1. 025 [facility] Comment on above: Performed By: #### D RUGRPD, ERUR, PREGU #### [facility] [address] [address] [address] Manjinder Forman UA PROTEIN Negative Normal NEGATIVE/ TRACE [facility] Comment on above: Performed By: #### D RUGRPD, ERUR, PREGU #### [facility] [address] [address] [address] Manjinder Forman UR MICRO IND NOT INDICATED Normal [facility] Comment on above: Performed By: #### D RUGRPD, ERUR, PREGU #### [facility] [address] [place] [address] Dr. Manjinder Forman Urobilinogen Qn (U) 0.2 {Gabi'U}/dL Normal 0.2 - 1.0 [facility] Comment on above: Performed By: #### D RUGRPD, ERUR, PREGU #### [facility] [address] [place] [address] Dr. Manjinder Forman URon 02-09-2023 , QUAL Negative Normal NEGATIVE [facility] Comment on above: Performed By: #### D RUGRPD, ERUR, PREGU #### [facility] [address] [place] [address] Dr. Manjinder Forman PROF 14(COMP METB)on 023 Albumin [Mass/Vol] 3.8 g/dL Normal 3.4-5.0 [facility] Comment on above: Performed By: #### H STROIGOR, CMP #### [facility] [address] [place] [address] Dr. Manjinder Forman Albumin/Globulin [Mass ratio] 1.2 {ratio} Normal [facility] Comment on above: Performed By: #### H RON, CMP #### [facility] [address] [place] [address] Dr. Manjinder Forman ALP [Catalytic activity/Vol] 87 U/L Normal 46-116 [facility] Comment on above: Performed By: #### H STROPN, CMP #### [facility] [address] [place] [address] Dr. Manjinder Forman ALT [Catalytic activity/Vol] 31 U/L Normal 14-59 [facility] Comment on above: Performed By: #### H STROPN, CMP #### [facility] [address] [place] [address] Dr. Manjinder Forman Anion gap [Moles/Vol] 21.4 mmol/L Normal [facility] Comment on above: Performed By: #### H STROPN, CMP #### [facility] [address] [place] [address] Dr. Manjinder Forman AST [Catalytic activity/Vol] 24 U/L Normal 15-37 [facility] Comment on above: Performed By: #### H STROPN, CMP #### [facility] [address] [place] [address] Dr. Manjinder Forman Bilirubin [Mass/Vol] 0.3 mg/dL Normal 0.2-1.0 [facility] Comment on above: Performed By: #### H STROPN, CMP #### [facility] [address] [place] [address] Dr. Manjinder Forman Calcium [Mass/Vol] 8.9 mg/dL Normal 8.5-10.1 [facility] Comment on above: Performed By: #### H STROPN, CMP #### [facility] [address] [place] [address] Dr. Manjinder Forman Chloride [Moles/Vol] 105 mmol/L Normal 98-107 [facility] Comment on above: Performed By: #### H STROPN, CMP #### [facility] [address] [place] [address] Dr. Manjinder Forman CO2 [Moles/Vol] 19.1 mmol/L Critically low 21.0-32.0 [facility] Comment on above: Performed By: #### H STROPN, CMP #### [facility] [address] [place] [address] Dr. Manjinder Forman Creatinine [Mass/Vol] 0.81 mg/dL Normal 0.55-1.02 [facility] Comment on above: Performed By: #### H STROPN, CMP #### [facility] [address] [address] [address] Manjinder Forman EGFR-AF AUSTRALIAN >60 Normal >=60 [facility] Comment on above: Performed By: #### H STROPN, CMP #### [facility] [address] [address] [address] Manjinder Forman EGFR-NON AF AUSTRALIAN >60 Normal >=60 [facility] Comment on above: Performed By: #### H STROPN, CMP #### [facility] [address] [place] [address] Dr. Manjinder Forman Globulin (S) [Mass/Vol] 3.1 g/dL Normal [facility] Comment on above: Performed By: #### H STROPN, CMP #### [facility] [address] [place] [address] Dr. Manjinder Forman Glucose [Mass/Vol] 103 mg/dL Normal 74-106 [facility] Comment on above: Performed By: #### H STROPN, CMP #### [facility] [address] [place] [address] Dr. Manjinder Forman Potassium [Moles/Vol] 3.5 mmol/L Normal 3.5-5.1 [facility] Comment on above: Performed By: #### H STROPN, CMP #### [facility] [address] [place] [address] Dr. Manjinder Forman Protein [Mass/Vol] 6.9 g/dL Normal 6.4-8.2 [facility] Comment on above: Performed By: #### H STROPN, CMP #### [facility] [address] [place] [address] Dr. Manjinder Forman Sodium [Moles/Vol] 142 mmol/L Normal 136-145 [facility] Comment on above: Performed By: #### H STROPN, CMP #### [facility] [address] [place] [address] Dr. Manjinder Forman Urea nitrogen [Mass/Vol] 12.0 mg/dL Normal 7.0-18.0 [facility] Comment on above: Performed By: #### H RON, CMP #### [facility] [address] [address] [address] Manjinder Forman Urea nitrogen/Creatinin e [Mass ratio] 14.8 mg/mg Normal [facility] Comment on above: Performed By: #### H RON, CMP #### [facility] [address] [address] [address] Manjinder Forman Estradiolon 01-01-2023 Estradiol 72.1 pg/mL 27 - 314 pg/mL [facility] Comment on above: FEMALES: Normally menstruating Luteal phase 33-298 Follicular phase 27-156 Midcycle phase 48-314 Postmenopausal (untreated) 5-50 Fulvestrant treatment will show an increased estradiol concentration with this methodology. Alternate methodologies are available upon request. Follicle Stimulating Hormone on 01-01-2023 FSH 64.8 High [facility] Comment on above: Reference Range: Male: 1.5-12.4 Ovulating Female: Follicular Phase 3.5-12.5 Ovulation Phase 4.7-21.5 Luteal Phase 1.7-7.7 Postmenopausal Female: 25.8-134.8 Interpretation and review of laboratory results Abnormal [facility] Luteinizing Hormoneon 2022 LH 40.9 [facility] Comment on above: Reference Range: Male: 1.7-8.6 Ovulating Female: Follicular Phase 2.4-12.6 Ovulation Phase 14.0-95.6 Luteal Phase 1.0-11.4 Postmenopausal Female: 7.7-58.5 No Panel Informationon 01-01 [facility] Vaginitis DNA Probeon 2022 Mary Species, DNA Probe Negative NEGATIVE [facility] Comment on above: for Mary sp. Method of testing is a DNA probe intended for detection and identification of Mary species, Gardnerella vaginalis, and Trichomonas vaginalis nucleic acid in vaginal fluid specimens from patients with symptoms of vaginitis/vaginosis. Gardnerella Vaginalis, DNA Probe Negative NEGATIVE [facility] Comment on above: for Gardnerella vagi nalis Source .VAGINAL SWAB [facility] Trichomonas Vaginalis DNA Negative NEGATIVE [facility] Comment on above: for Trichomonas Vagi nalis [facility] CITRATE URINE 24HRon 022 Citric Acid, U, 24hr 292 mg/24 hr Critically low 320-1240 [facility] Comment on above: Result Comment: This test was developed and its performance characteristics determined by [facility]. It has not been cleared or approved by the Food and Drug Administration. Performed By: #### D DIM #### [facility] [address] [address] [address] Manjinder Forman Citric Acid, Urine 136 mg/L Normal Undefined [facility] Comment on above: Performed By: #### D DIM #### [facility] [address] [place] [address] Dr. Manjinder Forman OXALATE 24HR URINEon 022 Oxalates, Urine 6 mg/L Normal Undefined [facility] Comment on above: Performed By: #### H RON, CMP #### [facility] [address] [place] [address] Dr. Manjinder Forman Oxalates, Urine 24hr 13 mg/24 hr Normal 4-31 [facility] Comment on above: Performed By: #### H RON, CMP #### [facility] [address] [place] [address] Dr. Manjinder Forman MAGNESIUM 24HR URINEon 09-04 Magnesium 24hr Urine 47.3 mg/24 hr Normal 12.0-293.0 [facility] Comment on above: Performed By: #### N A24U, [id number] #### [facility] [address] [place] [address] Dr. Manjinder Forman Magnesium UR 2.2 mg/dL Normal Not Estab. [facility] Comment on above: Performed By: #### N A24U, [id number] #### [facility] [address] [place] [address] Dr. Manjinder Forman PHOSPHORUS 24HR URINEon Phosphorus, Urine 30.2 mg/dL Normal Not Estab. [facility] Comment on above: Performed By: #### H JUANPN, CMP #### [facility] [address] [address] [address] Manjinder Forman Phosphorus, Urine 24hr 649 mg/24 hr Normal 261-1078 [facility] Comment on above: Performed By: #### H JUANPN, CMP #### [facility] [address] [place] [address] Dr. Manjinder Forman PTH INTACTon 09-04-2022 PTH, Intact 32 pg/mL Normal 15-65 [facility] Comment on above: Performed By: #### D DIM #### [facility] [address] [place] [address] Dr. Manjinder Forman URIC ACID 24 HR URINEon Uric Acid, Urine 18.6 mg/dL Normal Not Estab. [facility] Comment on above: Performed By: #### D DIM #### [facility] [address] [place] [address] Dr. Manjinder Forman Uric Acid, Urine 24hr 399.9 mg/24 hr Normal 173.7-902. 1 [facility] Comment on above: Performed By: #### D DIM #### [facility] [address] [place] [address] Dr. Manjinder Forman BUNon 09-03-2022 Urea nitrogen [Mass/Vol] 8.0 mg/dL Normal 7.0-18.0 [facility] Comment on above: Performed By: #### H RON, CMP #### [facility] [address] [place] [address] Dr. Manjinder Forman CALCIUMon 09-03-2022 Calcium [Mass/Vol] 9.0 mg/dL Normal 8.5-10.1 [facility] Comment on above: Performed By: #### H JUANPN, CMP #### [facility] [address] [place] [address] Dr. Manjinder Forman CALCIUM 24 HR URINEon 2021 CALC, 24 HR UR 107.5 mg/24 hr Normal 100.0-300. 0 [facility] Comment on above: Performed By: #### D DIM #### [facility] [address] [place] [address] Dr. Majninder Forman UR CALCIUM 5.0 mg/dL Critically low 5.1-21.0 [facility] Comment on above: Performed By: #### D DIM #### [facility] [address] [place] [address] Dr. Manjinder Forman CHLORIDEon 09-03-2022 Chloride [Moles/Vol] 102 mmol/L Normal 98-107 [facility] Comment on above: Performed By: #### D DIM #### [facility] [address] [place] [address] Dr. Manjinder Forman CO2on 09-03-2022 CO2 [Moles/Vol] 29.7 mmol/L Normal 21.0-32.0 [facility] Comment on above: Performed By: #### D DIM #### [facility] [address] [place] [address] Dr. Manjinder Forman CREA 24 HR URINEon 2 CREA, 24 HR UR 760.24 mg/24 hr Critically low 800.00-1 ,8 00.00 [facility] Comment on above: Performed By: #### N A24U, [id number] #### [facility] [address] [place] [address] Dr. Manjinder Forman UR TOT VOL 2150 ml/24 HR Normal [facility] Comment on above: Performed By: #### N A24U, [id number] #### [facility] [address] [place] [address] Dr. Manjinder Forman Performed By: #### D DIM #### [facility] [address] [place] [address] Dr. Manjinder Forman URINE CREAT 35.36 mg/dL Normal 20.00-300. 00 [facility] Comment on above: Performed By: #### N A24U, [id number] #### [facility] [address] [place] [address] Dr. Manjinder Forman CREATININEon 09-03-2022 Creatinine [Mass/Vol] 0.87 mg/dL Normal 0.55-1.02 [facility] Comment on above: Performed By: #### H STROPN, CMP #### [facility] [address] [place] [address] Dr. Manjinder Forman EGFR-AF AUSTRALIAN >60 Normal >=60 [facility] Comment on above: Performed By: #### H STROPN, CMP #### [facility] [address] [place] [address] Dr. Manjinder Forman EGFR-NON AF AUSTRALIAN >60 Normal >=60 [facility] Comment on above: Performed By: #### H STROPN, CMP #### [facility] [address] [place] [address] Dr. Manjinder Forman NAon 09-03-2022 Sodium [Moles/Vol] 137 mmol/L Normal 136-145 [facility] Comment on above: Performed By: #### H RON, CMP #### [facility] [address] [place] [address] Dr. Manjinder Forman POTASSIUMon 09-03-2022 Potassium [Moles/Vol] 4.1 mmol/L Normal 3.5-5.1 [facility] Comment on above: Performed By: #### H RON, CMP #### [facility] [address] [place] [address] Dr. Manjinder Forman SODIUM 24 HR URINEon 022 NA, 24 HR UR 153 mmol/24 hr Normal 40-220 [facility] Comment on above: Performed By: #### N A24U, [id number] #### [facility] [address] [place] [address] Dr. Manjinder Forman Sodium (U) [Moles/Vol] 71 mmol/L Normal 30-90 [facility] Comment on above: Performed By: #### N A24U, [id number] #### [facility] [address] [place] [address] Dr. Manjinder Forman URIC ACID SERUMon 09-03-2022 Urate [Mass/Vol] 5.1 mg/dL Normal 2.6-6.0 [facility] Comment on above: Performed By: #### H STROPN, CMP #### [facility] [address] [place] [address] Dr. Manjinder Forman CULTURE URINEon 08-02-2022 CULTURE URINE Isolate 1 [...] F Trimethoprim/Sulfamethoxazol e <=20 S F Normal [facility] Comment on above: Performed By: #### N A24U, [id number] #### [facility] [address] [place] [address] Dr. Manjinder Forman LIPID PROFILEon 07-30-2022 CHOL-HDL RATIO NORM SEE BELOW Normal [facility] Comment on above: Result Comment: 3.3 - 4.4 LOW RISK 4.4 - 7.1 AVERAGE RISK 7.1 - 11.0 MODERATE RISK >11.0 HIGH RISK Performed By: #### N A24U, [id number] #### [facility] [address] [place] [address] Dr. Manjinder Forman Cholesterol [Mass/Vol] 220 mg/dL Critically high <=200 [facility] Comment on above: Performed By: #### N A24U, [id number] #### [facility] [address] [address] [address] Manjinder Forman Cholesterol in HDL [Mass/Vol] 89 mg/dL Critically high 40-60 [facility] Comment on above: Performed By: #### N A24U, [id number] #### [facility] [address] [address] [address] Manjinder Forman Cholesterol in LDL [Mass/Vol] 117.6 mg/dL Normal [facility] Comment on above: Performed By: #### N A24U, [id number] #### [facility] [address] [address] [address] Manjinder Forman Cholesterol.total/ Cholesterol in HDL [Mass ratio] 2.5 {ratio} Normal [facility] Comment on above: Performed By: #### N A24U, [id number] #### [facility] [address] [place] [address] Dr. Manjinder Forman HDL NORMAL > or = 60 mg/dl - LO W CARDIOVASCULAR RISK <40 mg/dl - HIGH CARDIOVASCULAR RISK Normal [facility] Comment on above: Performed By: #### N A24U, [id number] #### [facility] [address] [address] [address] Manjinder Forman LDL CALC NORMAL SEE BELOW Normal [facility] Comment on above: Result Comment: <100 mg/dl OPTIMAL 100 - 129 mg/dl NEAR OR ABOVE OPTIMAL 130 - 159 mg/dl BORDERLINE HIGH 160 - 189 mg/dl HIGH >190 mg/dl VERY HIGH Performed By: #### N A24U, [id number] #### [facility] [address] [place] [address] Dr. Manjinder Forman Triglyceride [Mass/Vol] 67 mg/dL Normal <=150 [facility] Comment on above: Performed By: #### N A24U, [id number] #### [facility] [address] [place] [address] Dr. Manjinder Forman VLDL CALC 13.4 mg/dL Normal [facility] Comment on above: Performed By: #### N A24U, [id number] #### [facility] [address] [place] [address] Dr. Manjinder Forman UA RANDOM W/MICROSCOPICon BACTERIA NONE SEEN Normal NONE SEEN [facility] Comment on above: Performed By: #### N A24U, [id number] #### [facility] [address] [place] [address] Dr. Manjinder Forman Bilirubin Ql (U) Negative Normal NEGATIVE [facility] Comment on above: Performed By: #### N A24U, [id number] #### [facility] [address] [place] [address] Dr. Manjinder Forman CAST NONE SEEN Normal NONE SEEN [facility] Comment on above: Performed By: #### N A24U, [id number] #### [facility] [address] [place] [address] Dr. Manjinder Forman Clarity (U) CLEAR Normal CLEAR [facility] Comment on above: Performed By: #### N A24U, [id number] #### [facility] [address] [place] [address] Dr. Manjinder Forman Color (U) LT. YELLOW Normal YELLOW [facility] Comment on above: Performed By: #### N A24U, [id number] #### [facility] [address] [place] [address] Dr. Manjinder Forman Crystals LM Nom (Urine sed) NONE SEEN Normal NONE SEEN [facility] Comment on above: Performed By: #### N A24U, [id number] #### [facility] [address] [place] [address] Dr. Manjinder Forman Epithelial cells LM Ql (Urine sed) RARE Normal NONE SEEN /RARE [facility] Comment on above: Performed By: #### N A24U, [id number] #### [facility] [address] [place] [address] Dr. Manjinder Forman Glucose Ql (U) Negative Normal NEGATIVE [facility] Comment on above: Performed By: #### N A24U, [id number] #### [facility] [address] [place] [address] Dr. Manjinder Forman Hemoglobin Ql (U) Negative Normal NEGATIVE [facility] Comment on above: Performed By: #### N A24U, [id number] #### [facility] [address] [place] [address] Dr. Manjinder Forman Ketones Ql (U) Negative Normal NEGATIVE [facility] Comment on above: Performed By: #### N A24U, [id number] #### [facility] [address] [place] [address] Dr. Manjinder Forman LEUKOCYTES Negative Normal NEGATIVE [facility] Comment on above: Performed By: #### N A24U, [id number] #### [facility] [address] [place] [address] Dr. Manjinder Forman MUCOUS NONE SEEN Normal NONE SEEN [facility] Comment on above: Performed By: #### N A24U, [id number] #### [facility] [address] [place] [address] Dr. Manjinder Forman Nitrite Ql (U) Negative Normal NEGATIVE [facility] Comment on above: Performed By: #### N A24U, [id number] #### [facility] [address] [place] [address] Dr. Manjinder Forman pH (U) 7.0 [pH] Normal 5-9 [facility] Comment on above: Performed By: #### N A24U, [id number] #### [facility] [address] [place] [address] Dr. Manjinder Forman RBC 0-2 Normal 0-2 [facility] Comment on above: Performed By: #### N A24U, [id number] #### [facility] [address] [place] [address] Dr. Manjinder Forman SPEC GRAVITY 1.010 Normal 1.005-<=1. 025 [facility] Comment on above: Performed By: #### N A24U, [id number] #### [facility] [address] [place] [address] Dr. Manjinder Forman UA PROTEIN Negative Normal NEGATIVE/ TRACE [facility] Comment on above: Performed By: #### N A24U, [id number] #### [facility] [address] [address] [address] Manjinder Forman Urobilinogen Qn (U) 0.2 {Gabi'U}/dL Normal 0.2 - 1.0 [facility] Comment on above: Performed By: #### N A24U, [id number] #### [facility] [address] [address] [address] Manjinder Forman WBC NONE SEEN Normal NONE SEEN [facility] Comment on above: Performed By: #### N A24U, [id number] #### [facility] [address] [address] [address] Manjinder Forman Quick Strepon 07-18-2022 S. pyogenes Org specific cx Ql (Throat) Negative [facility] 1-800-DENTIST Other Quick Strep [facility] 1-800-DENTIST Other CBC AUTO DIFFon 07-06-2022 BASO # 0.0 103/ul Normal 0.0-0.1 [facility] Comment on above: Performed By: #### H STROPN, CMP #### [facility] [address] [address] [address] Manjinder Forman Basophils/100 WBC (Bld) 0.0 % Critically low 0.2-2.0 [facility] Comment on above: Performed By: #### H STROPN, CMP #### [facility] [address] [address] [address] Manjinder Forman EO # 0.0 103/ul Normal 0.0-0.7 [facility] Comment on above: Performed By: #### H STROPN, CMP #### [facility] [address] [address] [address] Manjinder Forman Eosinophils/100 WBC (Bld) 0.0 % Critically low 0.9-7.0 [facility] Comment on above: Performed By: #### H STROPN, CMP #### [facility] [address] [place] [address] Dr. Manjinder Forman Erythrocyte distribution width (RBC) [Ratio] 12.0 % Normal 11.0-15.0 [facility] Comment on above: Performed By: #### H STROPN, CMP #### [facility] [address] [place] [address] Dr. Manjinder Forman Hematocrit (Bld) [Volume fraction] 38.0 % Normal 36.0-48.0 [facility] Comment on above: Performed By: #### H STROPN, CMP #### [facility] [address] [place] [address] Dr. Manjinder Forman Hemoglobin (Bld) [Mass/Vol] 12.2 g/dL Normal 12.0-16.0 [facility] Comment on above: Performed By: #### H STROPN, CMP #### [facility] [address] [place] [address] Dr. Manjinder Forman IG # 0.01 10e3/ul Normal 0.00-0.03 [facility] Comment on above: Performed By: #### H STROPN, CMP #### [facility] [address] [place] [address] Dr. Manjinder Forman IG % 0.2 % Normal 0.0-0.5 [facility] Comment on above: Performed By: #### H STROPN, CMP #### [facility] [address] [place] [address] Dr. Manjinder Forman LYMPH # 0.5 103/ul Critically low 1.2-3.8 [facility] Comment on above: Performed By: #### H STROPN, CMP #### [facility] [address] [place] [address] Dr. Manjinder Forman Lymphocytes/100 WBC (Bld) 11.8 % Critically low 20.5-60.0 [facility] Comment on above: Performed By: #### H STROPN, CMP #### [facility] [address] [place] [address] Dr. Manjinder Forman MANUAL DIFF REQ NO Normal [facility] Comment on above: Performed By: #### H STROPN, CMP #### [facility] [address] [place] [address] Dr. Manjinder Forman MCH (RBC) [Entitic mass] 30.4 pg Normal 26.7-34.0 [facility] Comment on above: Performed By: #### H STROPN, CMP #### [facility] [address] [place] [address] Dr. Manjinder Forman MCHC (RBC) [Mass/Vol] 32.1 g/dL Normal 29.9-35.2 [facility] Comment on above: Performed By: #### H STROPN, CMP #### [facility] [address] [place] [address] Dr. Manjinder Forman MCV (RBC) [Entitic vol] 94.8 fL Normal 81.0-99.0 [facility] Comment on above: Performed By: #### H STROPN, CMP #### [facility] [address] [place] [address] Dr. Manjinder Forman MONO # 0.2 103/ul Critically low 0.3-0.8 [facility] Comment on above: Performed By: #### H STROPN, CMP #### [facility] [address] [place] [address] Dr. Manjinder Forman Monocytes/100 WBC (Bld) 3.7 % Normal 1.7-12.0 [facility] Comment on above: Performed By: #### H STROPN, CMP #### [facility] [address] [place] [address] Dr. Manjinder Forman NEUT # 3.4 103/ul Normal 1.4-6.5 [facility] Comment on above: Performed By: #### H STROPN, CMP #### [facility] [address] [place] [address] Dr. Manjinder Forman Neutrophils/100 WBC (Bld) 84.3 % Critically high 43.0-75.0 [facility] Comment on above: Performed By: #### H STROPN, CMP #### [facility] [address] [place] [address] Dr. Manjinder Forman Platelet mean volume (Bld) [Entitic vol] 11.1 fL Normal 9.5-13.5 [facility] Comment on above: Performed By: #### H STROPN, CMP #### [facility] [address] [address] [address] Manjinder Forman PLT 143 103/ul Critically low 150-450 [facility] Comment on above: Performed By: #### H JUANPN, CMP #### [facility] [address] [address] [address] Manjinder Forman RBC 4.01 106/ul Critically low 4.20-5.40 [facility] Comment on above: Performed By: #### H RON, CMP #### [facility] [address] [address] [address] Manjinder Forman WBC 4.1 103/ul Normal 4.0-11.0 [facility] Comment on above: Performed By: #### H RON, CMP #### [facility] [address] [place] [address] Dr. Manjinder Forman PROF 14(COMP METB)on 022 Albumin [Mass/Vol] 3.3 g/dL Critically low 3.4-5.0 [facility] Comment on above: Performed By: #### N A24U, [id number] #### [facility] [address] [address] [address] Manjinder Forman Albumin/Globulin [Mass ratio] 0.9 {ratio} Normal [facility] Comment on above: Performed By: #### N A24U, [id number] #### [facility] [address] [address] [address] Manjinder Forman ALP [Catalytic activity/Vol] 75 U/L Normal 46-116 [facility] Comment on above: Performed By: #### N A24U, [id number] #### [facility] [address] [address] [address] Manjinder Forman ALT [Catalytic activity/Vol] 39 U/L Normal 14-59 [facility] Comment on above: Performed By: #### N A24U, [id number] #### [facility] [address] [address] [address] Manjinder Forman Anion gap [Moles/Vol] 13.9 mmol/L Normal [facility] Comment on above: Performed By: #### N A24U, [id number] #### [facility] [address] [place] [address] Dr. Manjinder Forman AST [Catalytic activity/Vol] 25 U/L Normal 15-37 [facility] Comment on above: Performed By: #### N A24U, [id number] #### [facility] [address] [place] [address] Dr. Manjinder Forman Bilirubin [Mass/Vol] 0.3 mg/dL Normal 0.2-1.0 [facility] Comment on above: Performed By: #### N A24U, [id number] #### [facility] [address] [place] [address] Dr. Manjinder Forman Calcium [Mass/Vol] 8.3 mg/dL Critically low 8.5-10.1 [facility] Comment on above: Performed By: #### N A24U, [id number] #### [facility] [address] [place] [address] Dr. Manjinder Forman Chloride [Moles/Vol] 105 mmol/L Normal 98-107 [facility] Comment on above: Performed By: #### N A24U, [id number] #### [facility] [address] [place] [address] Dr. Manjinder Forman CO2 [Moles/Vol] 22.3 mmol/L Normal 21.0-32.0 [facility] Comment on above: Performed By: #### N A24U, [id number] #### [facility] [address] [place] [address] Dr. Manjinder Forman Creatinine [Mass/Vol] 0.76 mg/dL Normal 0.55-1.02 [facility] Comment on above: Performed By: #### N A24U, [id number] #### [facility] [address] [place] [address] Dr. Manjinder Forman EGFR-AF AUSTRALIAN >60 Normal >=60 [facility] Comment on above: Performed By: #### N A24U, [id number] #### [facility] [address] [place] [address] Dr. Manjinder Forman EGFR-NON AF AUSTRALIAN >60 Normal >=60 [facility] Comment on above: Performed By: #### N A24U, [id number] #### [facility] [address] [place] [address] Dr. Manjinder Forman Globulin (S) [Mass/Vol] 3.6 g/dL Normal [facility] Comment on above: Performed By: #### N A24U, [id number] #### [facility] [address] [place] [address] Dr. Manjinder Forman Glucose [Mass/Vol] 125 mg/dL Critically high 74-106 [facility] Comment on above: Performed By: #### N A24U, [id number] #### [facility] [address] [place] [address] Dr. Manjinder Forman Potassium [Moles/Vol] 4.2 mmol/L Normal 3.5-5.1 [facility] Comment on above: Performed By: #### N A24U, [id number] #### [facility] [address] [place] [address] Dr. Manjinder Forman Protein [Mass/Vol] 6.9 g/dL Normal 6.4-8.2 [facility] Comment on above: Performed By: #### N A24U, [id number] #### [facility] [address] [place] [address] Dr. Manjinder Forman Sodium [Moles/Vol] 137 mmol/L Normal 136-145 [facility] Comment on above: Performed By: #### N A24U, [id number] #### [facility] [address] [place] [address] Dr. Manjinder Forman Urea nitrogen [Mass/Vol] 12.0 mg/dL Normal 7.0-18.0 [facility] Comment on above: Performed By: #### N A24U, [id number] #### [facility] [address] [place] [address] Dr. Manjinder Forman Urea nitrogen/Creatinin e [Mass ratio] 15.8 mg/mg Normal [facility] Comment on above: Performed By: #### N A24U, [id number] #### [facility] [address] [place] [address] Dr. Manjinder Forman CBC AUTO DIFFon 07-05-2022 BASO # 0.0 103/ul Normal 0.0-0.1 [facility] Comment on above: Performed By: #### N A24U, [id number] #### [facility] [address] [place] [address] Dr. Manjinder Forman Basophils/100 WBC (Bld) 0.2 % Normal 0.2-2.0 [facility] Comment on above: Performed By: #### N A24U, [id number] #### [facility] [address] [place] [address] Dr. Manjinder Forman EO # 0.0 103/ul Normal 0.0-0.7 [facility] Comment on above: Performed By: #### N A24U, [id number] #### [facility] [address] [place] [address] Dr. Manjinder Forman Eosinophils/100 WBC (Bld) 0.2 % Critically low 0.9-7.0 [facility] Comment on above: Performed By: #### N A24U, [id number] #### [facility] [address] [place] [address] Dr. Manjinder Forman Erythrocyte distribution width (RBC) [Ratio] 11.9 % Normal 11.0-15.0 [facility] Comment on above: Performed By: #### N A24U, [id number] #### [facility] [address] [place] [address] Dr. Manjinder Forman Hematocrit (Bld) [Volume fraction] 39.1 % Normal 36.0-48.0 [facility] Comment on above: Performed By: #### N A24U, [id number] #### [facility] [address] [place] [address] Dr. Manjinder Forman Hemoglobin (Bld) [Mass/Vol] 12.7 g/dL Normal 12.0-16.0 [facility] Comment on above: Performed By: #### N A24U, [id number] #### [facility] [address] [place] [address] Dr. Manjinder Forman IG # 0.01 10e3/ul Normal 0.00-0.03 [facility] Comment on above: Performed By: #### N A24U, [id number] #### [facility] [address] [place] [address] Dr. Manjinder Forman IG % 0.2 % Normal 0.0-0.5 [facility] Comment on above: Performed By: #### N A24U, [id number] #### [facility] [address] [place] [address] Dr. Manjinder Forman LYMPH # 1.1 103/ul Critically low 1.2-3.8 [facility] Comment on above: Performed By: #### N A24U, [id number] #### [facility] [address] [place] [address] Dr. Manjinder Forman Lymphocytes/100 WBC (Bld) 21.0 % Normal 20.5-60.0 [facility] Comment on above: Performed By: #### N A24U, [id number] #### [facility] [address] [place] [address] Dr. Manjinder Forman MANUAL DIFF REQ NO Normal [facility] Comment on above: Performed By: #### N A24U, [id number] #### [facility] [address] [place] [address] Dr. Manjinder Forman MCH (RBC) [Entitic mass] 30.7 pg Normal 26.7-34.0 [facility] Comment on above: Performed By: #### N A24U, [id number] #### [facility] [address] [place] [address] Dr. Manjinder Forman MCHC (RBC) [Mass/Vol] 32.5 g/dL Normal 29.9-35.2 [facility] Comment on above: Performed By: #### N A24U, [id number] #### [facility] [address] [place] [address] Dr. Manjinder Forman MCV (RBC) [Entitic vol] 94.4 fL Normal 81.0-99.0 [facility] Comment on above: Performed By: #### N A24U, [id number] #### [facility] [address] [place] [address] Dr. Manjinder Forman MONO # 0.8 103/ul Normal 0.3-0.8 [facility] Comment on above: Performed By: #### N A24U, [id number] #### [facility] [address] [place] [address] Dr. Manjinder Forman Monocytes/100 WBC (Bld) 14.9 % Critically high 1.7-12.0 [facility] Comment on above: Performed By: #### N A24U, [id number] #### [facility] [address] [place] [address] Dr. Manjinder Forman NEUT # 3.3 103/ul Normal 1.4-6.5 [facility] Comment on above: Performed By: #### N A24U, [id number] #### [facility] [address] [place] [address] Dr. Manjinder Forman Neutrophils/100 WBC (Bld) 63.5 % Normal 43.0-75.0 [facility] Comment on above: Performed By: #### N A24U, [id number] #### [facility] [address] [place] [address] Dr. Manjinder Forman Platelet mean volume (Bld) [Entitic vol] 11.1 fL Normal 9.5-13.5 [facility] Comment on above: Performed By: #### N A24U, [id number] #### [facility] [address] [place] [address] Dr. Manjinder Forman PLT 150 103/ul Normal 150-450 [facility] Comment on above: Performed By: #### N A24U, [id number] #### [facility] [address] [place] [address] Dr. Manjinder Forman RBC 4.14 106/ul Critically low 4.20-5.40 [facility] Comment on above: Performed By: #### N A24U, [id number] #### [facility] [address] [place] [address] Dr. Manjinder Forman WBC 5.2 103/ul Normal 4.0-11.0 [facility] Comment on above: Performed By: #### N A24U, [id number] #### [facility] [address] [place] [address] Dr. Manjinder Forman D-DIMERon 07-05-2022 D-DIMER 0.21 mg/L FEU Normal <=0.59 [facility] Comment on above: Performed By: #### D DIM #### [facility] [address] [place] [address] Dr. Manjinder Forman D-DIMER COMMENTS SEE BELOW Normal [facility] Comment on above: Result Comment: [...] hospitalization. Performed By: #### D DIM #### [facility] [address] [place] [address] Dr. Manjinder Forman LACTATE/LACTIC ACIDon 2021 Lactate [Moles/Vol] 0.6 mmol/L Normal 0.4-1.9 [facility] Comment on above: Performed By: #### H BIN VELASQUEZ #### [facility] [address] [place] [address] Dr. Manjinder Forman PROF 14(COMP METB)on 022 Albumin [Mass/Vol] 3.4 g/dL Normal 3.4-5.0 [facility] Comment on above: Performed By: #### H BIN VELASQUEZ #### [facility] [address] [address] [address] Manjinder Forman Albumin/Globulin [Mass ratio] 1.0 {ratio} Normal [facility] Comment on above: Performed By: #### H STROPN, CMP #### [facility] [address] [address] [address] Manjinder Forman ALP [Catalytic activity/Vol] 81 U/L Normal 46-116 [facility] Comment on above: Performed By: #### H STROPN, CMP #### [facility] [address] [address] [address] Manjinder Forman ALT [Catalytic activity/Vol] 37 U/L Normal 14-59 [facility] Comment on above: Performed By: #### H STROPN, CMP #### [facility] [address] [address] [address] Manjinder Forman Anion gap [Moles/Vol] 10.9 mmol/L Normal [facility] Comment on above: Performed By: #### H STROPN, CMP #### [facility] [address] [address] [address] Manjinder Forman AST [Catalytic activity/Vol] 25 U/L Normal 15-37 [facility] Comment on above: Performed By: #### H STROPN, CMP #### [facility] [address] [address] [address] Manjinder Forman Bilirubin [Mass/Vol] 0.5 mg/dL Normal 0.2-1.0 [facility] Comment on above: Performed By: #### H STROPN, CMP #### [facility] [address] [address] [address] Manjinder Forman Calcium [Mass/Vol] 8.4 mg/dL Critically low 8.5-10.1 [facility] Comment on above: Performed By: #### H STROPN, CMP #### [facility] [address] [address] [address] Manjinder Forman Chloride [Moles/Vol] 102 mmol/L Normal 98-107 [facility] Comment on above: Performed By: #### H STROPN, CMP #### [facility] [address] [address] [address] Manjinder Forman CO2 [Moles/Vol] 26.1 mmol/L Normal 21.0-32.0 [facility] Comment on above: Performed By: #### H STROPN, CMP #### [facility] [address] [address] [address] Manjinder Forman Creatinine [Mass/Vol] 0.92 mg/dL Normal 0.55-1.02 [facility] Comment on above: Performed By: #### H STROPN, CMP #### [facility] [address] [address] [address] Manjinder Forman EGFR-AF AUSTRALIAN >60 Normal >=60 [facility] Comment on above: Performed By: #### H STROPN, CMP #### [facility] [address] [place] [address] Dr. Manjinder Forman EGFR-NON AF AUSTRALIAN >60 Normal >=60 [facility] Comment on above: Performed By: #### H STROPN, CMP #### [facility] [address] [address] [address] Manjinder Forman Globulin (S) [Mass/Vol] 3.5 g/dL Normal [facility] Comment on above: Performed By: #### H STROPN, CMP #### [facility] [address] [address] [address] Manjinder Forman Glucose [Mass/Vol] 104 mg/dL Normal 74-106 [facility] Comment on above: Performed By: #### H STROPN, CMP #### [facility] [address] [address] [address] Manjinder Forman Potassium [Moles/Vol] 4.0 mmol/L Normal 3.5-5.1 [facility] Comment on above: Performed By: #### H STROPN, CMP #### [facility] [address] [address] [address] Manjinder Forman Protein [Mass/Vol] 6.9 g/dL Normal 6.4-8.2 [facility] Comment on above: Performed By: #### H STROPN, CMP #### [facility] [address] [address] [address] Manjinder Forman Sodium [Moles/Vol] 135 mmol/L Critically low 136-145 [facility] Comment on above: Performed By: #### H RON, CMP #### [facility] [address] [place] [address] Dr. Manjinder Forman Urea nitrogen [Mass/Vol] 18.0 mg/dL Normal 7.0-18.0 [facility] Comment on above: Performed By: #### H RON, CMP #### [facility] [address] [address] [address] Manjinder Forman Urea nitrogen/Creatinin e [Mass ratio] 19.6 mg/mg Normal [facility] Comment on above: Performed By: #### H RON, CMP #### [facility] [address] [place] [address] Dr. Manjinder Forman TROPONIN, HIGH SENSITIVITYon 07-05-2022 HSTROP <4.0 Normal 4.0-51.3 [facility] Comment on above: Result Comment: CUT- OFF POINTS HAVE BEEN ESTABLISHED BASED ON THE FOURTH UNIVERSAL DEFINITIONS OF MYOCARDIAL INFARCTION. THE UPPER REFERENCE LIMIT (URL) OF TROPONIN, DEFINED THE 99TH PERCENTILE OF cTnI DISTRIBUTION IN A REFERENCE POPULATION, HAS BEEN CONFIRMED THE DECISION THRESHOLD FOR AR DIAGNOSIS. Performed By: #### H RON, CMP #### [facility] [address] [place] [address] Dr. Manjinder Forman XR CHEST 1 Von [...] JANA MARTIN Date: 2022-07-05 20:24 Normal [facility] CBC AUTO DIFFon 07-04-2022 BASO # 0.0 103/ul Normal 0.0-0.1 [facility] Comment on above: Performed By: #### D DIM #### [facility] [address] [place] [address] Dr. Manjinder Forman Basophils/100 WBC (Bld) 0.2 % Normal 0.2-2.0 [facility] Comment on above: Performed By: #### D DIM #### [facility] [address] [place] [address] Dr. Manjinder Forman EO # 0.0 103/ul Normal 0.0-0.7 [facility] Comment on above: Performed By: #### D DIM #### [facility] [address] [place] [address] Dr. Manjinder Forman Eosinophils/100 WBC (Bld) 0.2 % Critically low 0.9-7.0 [facility] Comment on above: Performed By: #### D DIM #### [facility] [address] [place] [address] Dr. Manjinder Forman Erythrocyte distribution width (RBC) [Ratio] 12.2 % Normal 11.0-15.0 [facility] Comment on above: Performed By: #### D DIM #### [facility] [address] [place] [address] Dr. Manjinder Forman Hematocrit (Bld) [Volume fraction] 39.9 % Normal 36.0-48.0 [facility] Comment on above: Performed By: #### D DIM #### [facility] [address] [place] [address] Dr. Manjinder Forman Hemoglobin (Bld) [Mass/Vol] 12.9 g/dL Normal 12.0-16.0 [facility] Comment on above: Performed By: #### D DIM #### [facility] [address] [place] [address] Dr. Manjinder Forman IG # 0.02 10e3/ul Normal 0.00-0.03 [facility] Comment on above: Performed By: #### D DIM #### [facility] [address] [place] [address] Dr. Manjinder Forman IG % 0.4 % Normal 0.0-0.5 [facility] Comment on above: Performed By: #### D DIM #### [facility] [address] [address] [address] Manjinder Forman LYMPH # 1.1 103/ul Critically low 1.2-3.8 [facility] Comment on above: Performed By: #### D DIM #### [facility] [address] [address] [address] Manjinder Forman Lymphocytes/100 WBC (Bld) 21.4 % Normal 20.5-60.0 [facility] Comment on above: Performed By: #### D DIM #### [facility] [address] [place] [address] Dr. Manjinder Forman MANUAL DIFF REQ NO Normal [facility] General Comment on above: Performed By: #### D DIM #### [facility] [address] [place] [address] Dr. Manjinder Forman MCH (RBC) [Entitic mass] 30.6 pg Normal 26.7-34.0 [facility] Comment on above: Performed By: #### D DIM #### [facility] [address] [place] [address] Dr. Manjinder Forman MCHC (RBC) [Mass/Vol] 32.3 g/dL Normal 29.9-35.2 [facility] Comment on above: Performed By: #### D DIM #### [facility] [address] [place] [address] Dr. Manjinder Forman MCV (RBC) [Entitic vol] 94.8 fL Normal 81.0-99.0 [facility] Comment on above: Performed By: #### D DIM #### [facility] [address] [place] [address] Dr. Manjinder Forman MONO # 1.0 103/ul Critically high 0.3-0.8 [facility] Comment on above: Performed By: #### D DIM #### [facility] [address] [place] [address] Dr. Manjinder Forman Monocytes/100 WBC (Bld) 18.8 % Critically high 1.7-12.0 [facility] Comment on above: Performed By: #### D DIM #### [facility] [address] [place] [address] Dr. Manjinder Forman NEUT # 3.1 103/ul Normal 1.4-6.5 [facility] Comment on above: Performed By: #### D DIM #### [facility] [address] [place] [address] Dr. Manjinder Forman Neutrophils/100 WBC (Bld) 59.0 % Normal 43.0-75.0 [facility] Comment on above: Performed By: #### D DIM #### [facility] [address] [place] [address] Dr. Manjinder Forman Platelet mean volume (Bld) [Entitic vol] 10.6 fL Normal 9.5-13.5 [facility] Comment on above: Performed By: #### D DIM #### [facility] [address] [place] [address] Dr. Manjinder Forman PLT 184 103/ul Normal 150-450 [facility] Comment on above: Performed By: #### D DIM #### [facility] [address] [place] [address] Dr. Manjinder Forman RBC 4.21 106/ul Normal 4.20-5.40 [facility] Comment on above: Performed By: #### D DIM #### [facility] [address] [place] [address] Dr. Manjinder Forman WBC 5.3 103/ul Normal 4.0-11.0 [facility] Comment on above: Performed By: #### D DIM #### [facility] [address] [place] [address] ABD/PELVIS WO CONon [...] CHIDI MORALES Date: 2022-07-04 10:16 Normal [facility] Covid-19 PCR (CVDTB)on SARS-CoV-2 (COVID-19) RNA KEN+probe Ql (Unsp spec) Detected Critically abnormal NOT DETECTED [facility] Comment on above: Result Comment: This test is not yet approved or cleared by the [place] FDA. When there are no FDA-approved or cleared tests available, and other criteria are met, FDA can make tests available under an emergency access mechanism called an Emergency Use Authorization (EUA). The EUA for this test is supported by the P[employer] of Health and Human Service's declaration that [...] longer be used). Performed By: #### H RON, CMP #### [facility] [address] [place] [id number] Manjinder Forman ER URINE PROFILEon 2 Bilirubin Ql (U) Negative Normal NEGATIVE [facility] Comment on above: Performed By: #### D DIM #### [facility] [address] [place] [address] [address] Manjinder Forman Clarity (U) CLEAR Normal CLEAR [facility] Comment on above: Performed By: #### D DIM #### [facility] [address] [place] [address] Dr. Manjinder Forman Color (U) LT. YELLOW Normal YELLOW [facility] Comment on above: Performed By: #### D DIM #### [facility] [address] [place] [address] Dr. Manjinder Forman ERUKAMINI A micrscopic examina tion will be performed if indicated. Normal [facility] Comment on above: Performed By: #### D DIM #### [facility] [address] [place] [address] Dr. Manjinder Forman Glucose Ql (U) Negative Normal NEGATIVE [facility] Comment on above: Performed By: #### D DIM #### [facility] [address] [place] [address] Dr. Manjinder Forman Hemoglobin Ql (U) Negative Normal NEGATIVE [facility] Comment on above: Performed By: #### D DIM #### [facility] [address] [place] [address] Dr. Manjinder Forman Ketones Ql (U) Negative Normal NEGATIVE [facility] Comment on above: Performed By: #### D DIM #### [facility] [address] [place] [address] Dr. Manjinder Forman LEUKOCYTES Negative Normal NEGATIVE [facility] Comment on above: Performed By: #### D DIM #### [facility] [address] [place] [address] Dr. Manjinder Forman Nitrite Ql (U) Negative Normal NEGATIVE [facility] Comment on above: Performed By: #### D DIM #### [facility] [address] [place] [address] Dr. Manjinder Forman pH (U) 6.0 [pH] Normal 5-9 [facility] Comment on above: Performed By: #### D DIM #### [facility] [address] [place] [address] Dr. Manjinder Forman SPEC GRAVITY <=1.005 Abnormal 1.005-<=1. 025 [facility] Comment on above: Performed By: #### D DIM #### [facility] [address] [place] [address] Dr. Manjinder Forman UA PROTEIN Negative Normal NEGATIVE/ TRACE [facility] Comment on above: Performed By: #### D DIM #### [facility] [address] [place] [address] Dr. Manjinder Forman UR MICRO IND NOT INDICATED Normal [facility] Comment on above: Performed By: #### D DIM #### [facility] [address] [place] [address] Dr. Manjinder Forman Urobilinogen Qn (U) 0.2 {Gabi'U}/dL Normal 0.2 - 1.0 [facility] Comment on above: Performed By: #### D DIM #### [facility] [address] [place] [address] Dr. Manjinder Forman GROUP A STREP CULTUREon S. pyogenes Ag Ql (Unsp spec) Culture Observations: NEGATIVE FOR GROUP A STREPTOCOCCUS. Normal [facility] Comment on above: Performed By: #### G RASTCX, SSCRN #### [facility] [address] [place] [address] Dr. Manjinder Forman INFLUENZA A AND B AGon 07-04 INFLUENZA A AG Negative Normal NEGATIVE SEE COMMENT [facility] Comment on above: Performed By: #### D DIM #### [facility] [address] [place] [address] Dr. Manjinder Forman INFLUENZA B AG Negative Normal NEGATIVE SEE COMMENT [facility] Comment on above: Performed By: #### D DIM #### [facility] [address] [place] [address] Dr. Manjinder Forman INTERNAL CONTROLS Within Normal Limits Normal Wi thin Normal Limits [facility] Comment on above: Performed By: #### D DIM #### [facility] [address] [place] [address] Dr. Manjinder Forman PROF 14(COMP METB)on 022 Albumin [Mass/Vol] 3.7 g/dL Normal 3.4-5.0 [facility] Comment on above: Performed By: #### N A24U, [id number] #### [facility] [address] [place] [address] Dr. Manjinder Forman Albumin/Globulin [Mass ratio] 1.1 {ratio} Normal [facility] Comment on above: Performed By: #### N A24U, [id number] #### [facility] [address] [place] [address] Dr. Manjinder Forman ALP [Catalytic activity/Vol] 84 U/L Normal 46-116 [facility] Comment on above: Performed By: #### N A24U, [id number] #### [facility] [address] [place] [address] Dr. Manjinder Forman ALT [Catalytic activity/Vol] 37 U/L Normal 14-59 [facility] Comment on above: Performed By: #### N A24U, [id number] #### [facility] [address] [place] [address] Dr. Manjinder Forman Anion gap [Moles/Vol] 10.5 mmol/L Normal [facility] Comment on above: Performed By: #### N A24U, [id number] #### [facility] [address] [place] [address] Dr. Manjinder Forman AST [Catalytic activity/Vol] 25 U/L Normal 15-37 [facility] Comment on above: Performed By: #### N A24U, [id number] #### [facility] [address] [place] [address] Dr. Manjinder Forman Bilirubin [Mass/Vol] 0.2 mg/dL Normal 0.2-1.0 [facility] Comment on above: Performed By: #### N A24U, [id number] #### [facility] [address] [place] [address] Dr. Manjinder Forman Calcium [Mass/Vol] 8.6 mg/dL Normal 8.5-10.1 [facility] Comment on above: Performed By: #### N A24U, [id number] #### [facility] [address] [place] [address] Dr. Manjinder Forman Chloride [Moles/Vol] 103 mmol/L Normal 98-107 [facility] Comment on above: Performed By: #### N A24U, [id number] #### [facility] [address] [place] [address] Dr. Manjinder Forman CO2 [Moles/Vol] 26.9 mmol/L Normal 21.0-32.0 [facility] Comment on above: Performed By: #### N A24U, [id number] #### [facility] [address] [place] [address] Dr. Manjinder Forman Creatinine [Mass/Vol] 0.94 mg/dL Normal 0.55-1.02 [facility] Comment on above: Performed By: #### N A24U, [id number] #### [facility] [address] [place] [address] Dr. Manjinder Fomran EGFR-AF AUSTRALIAN >60 Normal >=60 [facility] Comment on above: Performed By: #### N A24U, [id number] #### [facility] [address] [place] [address] Dr. Manjinder Forman EGFR-NON AF AUSTRALIAN >60 Normal >=60 [facility] Comment on above: Performed By: #### N A24U, [id number] #### [facility] [address] [place] [address] Dr. Manjinder Forman Globulin (S) [Mass/Vol] 3.4 g/dL Normal [facility] Comment on above: Performed By: #### N A24U, [id number] #### [facility] [address] [place] [address] Dr. Manjinder Forman Glucose [Mass/Vol] 95 mg/dL Normal 74-106 [facility] Comment on above: Performed By: #### N A24U, [id number] #### [facility] [address] [place] [address] Dr. Manjinder Forman Potassium [Moles/Vol] 4.4 mmol/L Normal 3.5-5.1 [facility] Comment on above: Performed By: #### N A24U, [id number] #### [facility] [address] [place] [address] Dr. Manjinder Forman Protein [Mass/Vol] 7.1 g/dL Normal 6.4-8.2 [facility] Comment on above: Performed By: #### N A24U, [id number] #### [facility] [address] [place] [address] Dr. Manjinder Forman Sodium [Moles/Vol] 136 mmol/L Normal 136-145 [facility] Comment on above: Performed By: #### N A24U, [id number] #### [facility] [address] [place] [address] Dr. Manjinder Forman Urea nitrogen [Mass/Vol] 8.0 mg/dL Normal 7.0-18.0 [facility] Comment on above: Performed By: #### N A24U, [id number] #### [facility] [address] [place] [address] Dr. Manjinder Forman Urea nitrogen/Creatinin e [Mass ratio] 8.5 mg/mg Normal [facility] Comment on above: Performed By: #### N A24U, [id number] #### [facility] [address] [place] [address] Dr. Manjinder Forman STREPT SCREENon 07-04-2022 STREP SCREEN A Negative Normal NEGATIVE [facility] Comment on above: Performed By: #### G RASTCX, SSCRN #### [facility] [address] [place] [address] Dr. Manjinder Forman UA RANDOM W/MICROSCOPICon BACTERIA NONE SEEN Normal NONE SEEN [facility] Comment on above: Performed By: #### H RON, CMP #### [facility] [address] [place] [address] Dr. Manjinder Forman Bilirubin Ql (U) Negative Normal NEGATIVE [facility] Comment on above: Performed By: #### H JUANPN, CMP #### [facility] [address] [place] [address] Dr. Manjinder Forman CAST NONE SEEN Normal NONE SEEN [facility] Comment on above: Performed By: #### H STROPN, CMP #### [facility] [address] [address] [address] Manjinder Forman Clarity (U) CLEAR Normal CLEAR [facility] Comment on above: Performed By: #### H STROPN, CMP #### [facility] [address] [address] [address] Manjinder Forman Color (U) LT. YELLOW Normal YELLOW [facility] Comment on above: Performed By: #### H STROPN, CMP #### [facility] [address] [address] [address] Manjinder Forman Crystals LM Nom (Urine sed) NONE SEEN Normal NONE SEEN [facility] Comment on above: Performed By: #### H STROPN, CMP #### [facility] [address] [place] [address] Dr. Manjinder Forman Epithelial cells LM Ql (Urine sed) MODERATE Abnormal NONE SEEN /RARE [facility] Comment on above: Performed By: #### H STROPN, CMP #### [facility] [address] [place] [address] Dr. Manjinder Forman Glucose Ql (U) Negative Normal NEGATIVE [facility] Comment on above: Performed By: #### H STROPN, CMP #### [facility] [address] [place] [address] Dr. Manjinder Forman Hemoglobin Ql (U) Negative Normal NEGATIVE [facility] Comment on above: Performed By: #### H STROPN, CMP #### [facility] [address] [address] [address] Manjinder Forman Ketones Ql (U) Negative Normal NEGATIVE [facility] Comment on above: Performed By: #### H STROPN, CMP #### [facility] [address] [address] [address] Manjinder Forman LEUKOCYTES Negative Normal NEGATIVE [facility] Comment on above: Performed By: #### H STROPN, CMP #### [facility] [address] [place] [address] Dr. Manjinder Forman MUCOUS NONE SEEN Normal NONE SEEN [facility] Comment on above: Performed By: #### H STROPN, CMP #### [facility] [address] [address] [address] Manjinder Forman Nitrite Ql (U) Negative Normal NEGATIVE [facility] Comment on above: Performed By: #### H STROPN, CMP #### [facility] [address] [place] [address] Dr. Manjinder Forman pH (U) 6.0 [pH] Normal 5-9 [facility] Comment on above: Performed By: #### H STROPN, CMP #### [facility] [address] [place] [address] Dr. Manjinder Forman RBC NONE SEEN Abnormal 0-2 [facility] Comment on above: Performed By: #### H STROPN, CMP #### [facility] [address] [place] [address] Dr. Manjinder Forman SPEC GRAVITY 1.010 Normal 1.005-<=1. 025 [facility] Comment on above: Performed By: #### H STROPN, CMP #### [facility] [address] [place] [address] Dr. Manjinder Forman UA PROTEIN Negative Normal NEGATIVE/ TRACE [facility] Comment on above: Performed By: #### H STROPN, CMP #### [facility] [address] [place] [address] Dr. Manjinder Forman Urobilinogen Qn (U) 0.2 {Gabi'U}/dL Normal 0.2 - 1.0 [facility] Comment on above: Performed By: #### H STROPN, CMP #### [facility] [address] [place] [address] Dr. Manjinder Forman WBC NONE SEEN Normal NONE SEEN [facility] Comment on above: Performed By: #### H STROPN, CMP #### [facility] [address] [place] [address] Dr. Manjinder Forman XR KUB 1 VIEWon [...] by: CHIDI MORALES Date: 2022-07-02 13:43 Normal [facility] CPKon 04-17-2021 CK [Catalytic activity/Vol] 59 U/L Normal 30-223 [facility] Comment on above: Performed By: #### 2 [id number], [id number], [id number] #### [address] [place] [id number] 04-17-2021 CYCLIC CIT PEP 4 Units Normal 0-19 [facility] Comment on above: Result Comment: INTE RPRETIVE [...] be monitored and testing repeated. Performed By: [email or web address] [address] [place] [address] Plate Slitter And Inspector: Emily Tellez MD HAND LEFT 3 [facility] 04-17-2021 HAND LEFT 3 [facility] [address] [place] [id number] Patient Name: ANDREA LONG : 1980 Sex: F Age: Race: White Pt. Location: 264 Patient Status: O Ordered Date: 04/17/2021 11:05:00 AM Completed Date: 04/17/2021 11:06 AM Requesting Provider: LUBNA BONILLA Attending Provider: BHAVIK ARRIAGA Report Copy To: Signs & Symptoms: M25.50 Pain in unspecified joint I10 History: [place] Comments: Evaluate Exam: HAND LEFT 3 S HAND LEFT 3 S CLINICAL INFORMATION: pt states alfie hand pain, arthritis COMPARISON: None. IMPRESSION: 1. No fracture or other acute osseous abnormalities identified. Scattered degenerative changes. No erosions. Electronically signed: Lukas Porter. Transcribed by: [email or web address], User Resident: Electronically Signed by: LUKAS PORTER @ 04/17/2021 04:14 PM Normal [facility] Comment on above: Order Comment: Evalu ate HAND RIGHT 3 Son 1 HAND RIGHT 3 [facility] [address] [place] [id number] Patient Name: ANDREA LONG : 1980 Sex: F Age: Race: White Pt. Location: [facility] Patient Status: O Ordered Date: 04/17/2021 11:05:00 AM Completed Date: 04/17/2021 11:06 AM Requesting Provider: LUBNA BONILLA Attending Provider: BHAVIK ARRIAGA Report Copy To: Signs & Symptoms: M25.50 Pain in unspecified joint I10 History: [place] Comments: Evaluate Exam: HAND RIGHT 3 VWS HAND RIGHT 3 VWS CLINICAL INFORMATION: pt states alfie hand pain, arthritis COMPARISON: None. IMPRESSION: 1. No fracture. No erosions. Scattered degenerative changes. Electronically signed: Lukas Porter. Transcribed by: [email or web address], User Resident: Electronically Signed by: LUKAS PORTER @ 04/17/2021 04:15 PM Normal [facility] Comment on above: Order Comment: Evalu ate SEDIMENTATION RATEon 021 SED RATE 10 mm/hr Normal 0-20 [facility] Comment on above: Performed By: #### 5 [id number] #### [facility] [address] [place] [address], [facility] SJOGRENS ANTIBODIESon 2020 SS-A Negative Normal NEG,NEGATI VE,Neg [facility] Comment on above: Performed By: #### 9 9850 #### [facility] [address] [place] [address], [place] SS-B Negative Normal NEG,NEGATI VE,Neg [facility] Comment on above: Performed By: #### 9 9850 #### [facility] [address] TSH3on 04-17-2021 TSH 3RD GENERATION 1.35 uIU/mL Normal 0.34-5.60 [facility] Comment on above: Performed By: #### 2 5508, [id number], [id number] #### [facility] [address] VITAMIN D 25-HYDROXYon 04-17 VITAMIN D 25-OH 66.4 ng/mL Normal 30.0-80.0 [facility] Comment on above: Result Comment: >80. 0 Toxicity possible Performed By: #### 2 5508, 00678, [id number] #### [facility] [address] CBC With Auto Differentialon 12-18-2020 Basophils (Bld) [#/Vol] 0.05 10*3/uL [employer] Phone: Basophils/100 WBC (Bld) 1 % 0 - 2 % [facility] Phone: Differential Type NOT REPORTED [facility] Phone: Eosinophils (Bld) [#/Vol] 0.21 10*3/uL [employer] Phone: Eosinophils/100 WBC (Bld) 3 % 1 - 4 % [employer] Phone: Erythrocyte distribution width (RBC) [Ratio] 11.7 % Low 11.8 - 14.4 % [facility] Phone: Hematocrit (Bld) [Volume fraction] 43.3 % 36.3 - 47.1 % [facility] Phone: Hemoglobin (Bld) [Mass/Vol] 13.8 g/dL 11.9 - 15.1 g/dL [employer] Phone: Immature granulocytes (Bld) [#/Vol] 0 % 0 [facility] Phone: Immature granulocytes (Bld) [#/Vol] 10*3/uL [facility] Phone: Interpretation and review of laboratory results Abnormal [facility] Phone: Lymphocytes (Bld) [#/Vol] 2.04 10*3/uL [employer] Phone: Lymphocytes/100 WBC (Bld) 28 % 24 - 43 % [facility] Phone: MCH (RBC) [Entitic mass] 30.7 pg 25.2 - 33.5 pg [employer] Phone: MCHC (RBC) [Mass/Vol] 31.9 g/dL 28.4 - 34.8 g/dL [employer] Phone: MCV (RBC) [Entitic vol] 96.2 fL 82.6 - 102.9 fL [employer] Phone: Monocytes (Bld) [#/Vol] 0.83 10*3/uL [employer] Phone: Monocytes/100 WBC (Bld) 11 % 3 - 12 % [employer] Phone: Platelet mean volume (Bld) [Entitic vol] 10.5 fL 8.1 - 13.5 fL [employer] Phone: Platelets (Bld) [#/Vol] 335 10*3/uL [employer] Phone: Platelets (Bld) [#/Vol] NOT REPORTED [employer] Phone: RBC (Bld) [#/Vol] 4.50 10*6/uL 3.95 - 5.11 m/uL [employer] Phone: RBC morphology finding Nom (Bld) NOT REPORTED [employer] Phone: Segmented neutrophils/100 WBC (Bld) 57 % 36 - 65 % [employer] Phone: Segs Absolute 4.10 [facility] Work Phone: WBC (Bld) [#/Vol] 7.3 10*3/uL [facility] [employer] Work Phone: WBC (Bld) [#/Vol] 0.0 10*3/uL 0.0 per 100 WBC [facility] Work Phone: WBC Morphology NOT REPORTED [facility] [employer] Work Phone: COVID-19on 11-06-2020 SARS-CoV-2 [facility] [employer] Work Phone: SARS-CoV-2 Not Detected Not Detected [facility] [employer] Work Phone: Comment on above: The specimen is NEGATIVE for SARS-CoV-2, the novel coronavirus associated with COVID-19. A negative result does not rule out COVID-19. Malachi SARS-CoV-2 for use on the [employer] is a real-time RT-PCR test intended [...] this assay. Fact sheet for Healthcare Providers: https://www.fda.gov/media/028418/download Fact sheet for Patients: https://www.fda.gov/media/485245/download METHODOLOGY: RT-PCR SARS-CoV-2, Rapid [facility] Work Phone: Source .NASOPHARYNGEAL SWAB [facility] [employer] Work Phone: US BREAST COMPLETE RIGHTon 0 [...] to the patient regarding the results. The [employer] recommends annual mammograms for women 40 years and older. [place], [place] EXAMINATION: TARGETE D ULTRASOUND OF THE RIGHT [...] a breast lobule. No suspicious mass identified. [place], [place] Karan, M[facility] Incoming R adiant Results From [employer] - 10/05/2020 2:26 PM EST EXAMINATION: TARGETED [...] to the patient regarding the results. The [employer] recommends annual mammograms for women 40 years and older. [place], [place] Estradiolon 08-31-2020 Estradiol <5 Low 27 - 314 pg/mL [place], [place] Comment on above: FEMALES: Normally menstruating Luteal phase 33-298 Follicular phase 27-156 Midcycle phase 48-314 Postmenopausal (untreated) 5-50 Fulvestrant treatment will show an increased estradiol concentration with this methodology. Alternate methodologies are available upon request. Follicle Stimulating Hormone on 08-31-2020 FSH 1 U/L Low 1.7 - 21.5 U/L [place], [place] Comment on above: Reference Range: Male: 1.5-12.4 Ovulating Female: Follicular Phase 3.5-12.5 Ovulation Phase 4.7-21.5 Luteal Phase 1.7-7.7 Postmenopausal Female: 25.8-134.8 Interpretation and review of laboratory results Abnormal [place], [place] Luteinizing Hormoneon 2019 LH <0.1 Low 1 - 95.6 U/L [place] Comment on above: Reference Range: Male: 1.7-8.6 Ovulating Female: Follicular Phase 2.4-12.6 Ovulation Phase 14.0-95.6 Luteal Phase 1.0-11.4 Postmenopausal Female: 7.7-58.5 Otheron 08-31-2020 Interpretation and review of laboratory results Abnormal [place], [place] TSH With Reflex Ft4on 2019 TSH Qn 1.26 m[IU]/L [place], [place] US NON OB TRANSVAGINALon Unremarkable sonogra phic appearance of the uterus and endometrial stripe. Neither ovary is visualized or evaluated. [place], [place] EXAMINATION: PELVIC ULTRASOUND 07/12/2020 TECHNIQUE: Transvaginal pelvic ultrasound was performed. COMPARISON: None HISTORY: ORDERING SYSTEM PROVIDED HISTORY: History of menorrhagia FINDINGS: Neither ovary is visualized or evaluated. Uterus measures 7.3 x 3.0 x 3.7 cm. Endometrial stripe measures 5.9 mm. No free fluid is appreciated. [place], [place] Karan, M[facility] Incoming R adiant Results From [facility] - 07/12/2020 6:18 PM EDT EXAMINATION: PELVIC [...] stripe. Neither ovary is visualized or evaluated. [place], [place] Vital Signs Date Time Vital Sign Value Performing Clinician Facility 07-11-2024 13:49-0400 Body height 165.1 cm Alison Cage MATERIAL DISTRIBUTOR Work Phone: [facility] 07-11-2024 13:49-0400 Body mass index (BMI) [Ratio] 31.88 kg/m2 Alison Cage MATERIAL DISTRIBUTOR Work Phone: [facility] 07-11-2024 13:49-0400 Body weight 86.91 kg Alison Cage MATERIAL DISTRIBUTOR Work Phone: [facility] 07-11-2024 13:49-0400 Diastolic blood pressure 82 mm[Hg] Alison Cage MATERIAL DISTRIBUTOR Work Phone: [facility] 07-11-2024 13:49-0400 Heart rate 81 /min Alison Cage MATERIAL DISTRIBUTOR Work Phone: [facility] 07-11-2024 13:49-0400 SaO2% (BldA) [Mass fraction] 97 % Alison Cage MATERIAL DISTRIBUTOR Work Phone: [facility] 07-11-2024 13:49-0400 Systolic blood pressure 146 mm[Hg] Alison Cage MATERIAL DISTRIBUTOR Work Phone: [facility] 06-28-2024 13:52-0400 Body height 165.1 cm Caitlin Finch MATERIAL DISTRIBUTOR Work Phone: [facility] 06-28-2024 13:52-0400 Body mass index (BMI) [Ratio] 29.85 kg/m2 Caitlin Finch MATERIAL DISTRIBUTOR Work Phone: [facility] 06-28-2024 13:52-0400 Body temperature 98.49 [degF] Caitlin Nairholz MATERIAL DISTRIBUTOR Work Phone: [facility] 06-28-2024 13:52-0400 Body weight 81.38 kg Caitlinalisson Nairholz MATERIAL DISTRIBUTOR Work Phone: [facility] 06-28-2024 13:52-0400 Diastolic blood pressure 86 mm[Hg] Caitlin Aichholz MATERIAL DISTRIBUTOR Work Phone: [facility] 06-28-2024 13:52-0400 Heart rate 94 /min Caitlin Akihholz MATERIAL DISTRIBUTOR Work Phone: [facility] 06-28-2024 13:52-0400 Respiratory rate 18 /min Caitlin Akihholz MATERIAL DISTRIBUTOR Work Phone: [facility] 06-28-2024 13:52-0400 SaO2% (BldA) [Mass fraction] 97 % Caitlin Koreyholz MATERIAL DISTRIBUTOR Work Phone: [facility] 06-28-2024 13:52-0400 Systolic blood pressure 128 mm[Hg] Caitlin Koreyholz MATERIAL DISTRIBUTOR Work Phone: [facility] 09-29-2023 13:10-0500 Body height 165.1 cm Ramona [email or web address] Other [facility] Other 09-29-2023 13:10-0500 Body mass index (BMI) [Ratio] 30.62 kg/m2 Ramona [email or web address] Other [employer] Other 09-29-2023 13:10-0500 Body temperature 98.2 [degF] Ramona [email or web address] Other [employer] Other 09-29-2023 13:10-0500 Body weight 83.46 kg Ramona Jimenez Other [employer] Other 09-29-2023 13:10-0500 Respiratory rate 18 /min Ramona [email or web address] Other [employer] Other 09-29-2023 13:10-0500 SaO2% (BldA) [Mass fraction] 98 % Ramona Jimenez Other [facility] Other 05-01-2023 13:56-0400 Body height 165.1 cm Noemi Franklin DO Work Phone: [employer] 05-01-2023 13:56-0400 Body mass index (BMI) [Ratio] 28.29 kg/m2 Noemi Franklin DO Work Phone: [employer] 05-01-2023 13:56-0400 Body temperature 97.3 [degF] Noemi Franklin DO Work Phone: [employer] 05-01-2023 13:56-0400 Body weight 77.11 kg Noemi Franklin DO Work Phone: [employer] 05-01-2023 13:56-0400 Diastolic blood pressure 84 mm[Hg] Noemi Franklin DO Work Phone: [employer] 05-01-2023 13:56-0400 Heart rate 75 /min Noemi Franklin DO Work Phone: [employer] 05-01-2023 13:56-0400 Respiratory rate 16 /min Noemi Franklin DO Work Phone: [employer] 05-01-2023 13:56-0400 SaO2% (BldA) [Mass fraction] 99 % Noemi Franklin DO Work Phone: [employer] 05-01-2023 13:56-0400 Systolic blood pressure 150 mm[Hg] Noemi Franklin DO Work Phone: [employer] 04-23-2023 12:39-0400 Diastolic blood pressure 90 mm[Hg] Caitlin Finch Work Phone: [facility] DO Work Phone: 04-23-2023 12:39-0400 Diastolic blood pressure 84 mm[Hg] Caitlin Nairholremigio Work Phone: [facility] DO Work Phone: 04-23-2023 12:39-0400 Systolic blood pressure 124 mm[Hg] Caitlin Nairholz Work Phone: [facility] DO Work Phone: 04-23-2023 12:39-0400 Systolic blood pressure 118 mm[Hg] Caitlin Nairholz Work Phone: [facility] DO Work Phone: 04-23-2023 12:05-0400 Body height 165.1 cm Caitlin Nairholremigio Work Phone: [facility] DO Work Phone: 04-23-2023 12:05-0400 Body mass index (BMI) [Ratio] 28.62 kg/m2 Caitlin Nairholz Work Phone: [facility] DO Work Phone: 04-23-2023 12:05-0400 Body surface area Derived from formula 1.86 m2 Caitlin Nairholz Work Phone: [facility] DO Work Phone: 04-23-2023 12:05-0400 Body weight 78.02 kg Caitlin Nairholz Work Phone: [facility] DO Work Phone: 04-23-2023 12:05-0400 Heart rate 86 /min Caitlin Nairholz Work Phone: [facility] DO Work Phone: 04-23-2023 12:04-0400 Diastolic blood pressure 102 mm[Hg] Caitlin Finch Work Phone: [facility] DO Work Phone: 04-23-2023 12:04-0400 Diastolic blood pressure 104 mm[Hg] Caitlin Finch Work Phone: [facility] DO Work Phone: 04-23-2023 12:04-0400 Systolic blood pressure 154 mm[Hg] Caitlin Finch Work Phone: [facility] DO Work Phone: 04-23-2023 12:04-0400 Systolic blood pressure 152 mm[Hg] Caitlin Finch Work Phone: [facility] DO Work Phone: 04-23-2023 12:04-0400 Systolic blood pressure 148 mm[Hg] Caitlin Finch Work Phone: [facility] DO Work Phone: 12-22-2022 13:35-0400 Blood Pressure Location Roney VILLALTA [facility] 12-22-2022 13:35-0400 Diastolic blood pressure 82 mm[Hg] Roney VILLALTA [facility] 12-22-2022 13:35-0400 Heart rate 72 /min Roney VILLALTA [facility] 12-22-2022 13:35-0400 Respiratory rate 16 /min Roney VILLALTA [facility] 12-22-2022 13:35-0400 Systolic blood pressure 140 mm[Hg] Roney VILLALTA [facility] 09-01-2022 12:38-0500 Blood Pressure Location Roney VILLALTA [facility] 09-01-2022 12:38-0500 Diastolic blood pressure 88 mm[Hg] Roneykalpesh VILLALTA [facility] 09-01-2022 12:38-0500 Heart rate 75 /min Roneykalpesh VILLALTA [facility] 09-01-2022 12:38-0500 Respiratory rate 16 /min Roney VILLALTA [facility] 09-01-2022 12:38-0500 Systolic blood pressure 137 mm[Hg] Roney VILLALTA [facility] 07-18-2022 13:50-0400 Body height 165.1 cm Jaelyn Bright Other [facility] Other 07-18-2022 13:50-0400 Body mass index (BMI) [Ratio] 27.65 kg/m2 Jaelyn Bright Other [employer] Other 07-18-2022 13:50-0400 Body temperature 97.8 [degF] Jaelyn Bright Other [employer] Other 07-18-2022 13:50-0400 Body weight 75.39 kg Jaelyn Bright Other [facility] Other 07-18-2022 13:50-0400 Diastolic blood pressure 65 mm[Hg] Jaelyn Bright Other [facility] Other 07-18-2022 13:50-0400 Respiratory rate 18 /min Jaelyn Bright Other [facility] Other 07-18-2022 13:50-0400 SaO2% (BldA) [Mass fraction] 97 % Jaelyn Bright Other [employer] Other 07-18-2022 13:50-0400 Systolic blood pressure 106 mm[Hg] Jaelyn Bright Other [facility] Other Encounters Encounter Date Encounter Type Care Provider Facility Start: 08-18-2024 ambulatory RAFAL Almaraz ty:SKIP [facility] Start: 08-08-2024 End: 08-08-2024 Refill Caitlin Finch MATERIAL DISTRIBUTOR Work Phone: [facility] Comment on above: Chronic migraine wit hout aura without status migrainosus, not intractable (CMS/HCC) Start: 07-26-2024 End: 07-26-2024 ambulatory [facility] Start: 07-25-2024 End: 07-26-2024 Refill Caitlin Finch MATERIAL DISTRIBUTOR Work Phone: [facility] Comment on above: Fibromyalgia Start: 07-11-2024 End: 07-11-2024 Office outpatient visit 25 minutes Alison Cage MATERIAL DISTRIBUTOR Work Phone: [facility] [address] Comment on above: Migraine without aur a and without status migrainosus, not intractable (CMS/HCC) (Primary Dx); Anxiety and depression (CMS/HCC); Paresthesia; Fibromyalgia; Memory difficulty; Abnormal brain MRI; Weakness; Seizures (CMS/HCC); Syncope and collapse; Orthostatic hypotension Start: 07-11-2024 End: 07-11-2024 ambulatory ALISON CAGE Not Available Start: 07-11-2024 End: 07-11-2024 ambulatory Roney VILLALTA Facility:[facility] Start: 07-11-2024 End: 07-11-2024 Patient encounter procedure Rnoey R PAWAN [facility] Start: 06-30-2024 End: 06-30-2024 Refill Caitlin Aichholz MATERIAL DISTRIBUTOR Work Phone: [facility] Comment on above: Nausea (Primary Dx) Start: 06-30-2024 End: 07-01-2024 Refill Caitlin Aichholz MATERIAL DISTRIBUTOR Work Phone: [facility] Comment on above: Fibromyalgia Start: 06-28-2024 End: 06-28-2024 Bamboo flowsheet Caitlin Aichholz MATERIAL DISTRIBUTOR Work Phone: [facility] Start: 06-28-2024 End: 06-28-2024 Bamboo flowsheet Caitlin Aichholz MATERIAL DISTRIBUTOR Work Phone: [facility] Start: 06-28-2024 End: 06-28-2024 ambulatory CAITLIN AICHHOLZ Not Available Start: 06-28-2024 End: 06-28-2024 Office outpatient visit 25 minutes Caitlin Aichholz MATERIAL DISTRIBUTOR Work Phone: [facility] Comment on above: Fibromyalgia (Primar y Dx); Other generalized epilepsy and epileptic syndromes, not intractable, 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); Irritable bowel syndrome with constipation and diarrhea; Right hip impingement syndrome; Chronic migraine without aura without status migrainosus, not intractable (CMS/HCC); Generalized anxiety disorder (CMS/HCC); Severe episode of recurrent major depressive disorder, without psychotic features (HCC) (CMS/HCC) Start: 06-21-2024 End: 06-21-2024 ambulatory [facility] Start: 06-07-2024 End: 06-07-2024 ambulatory LUKAS JHAVERI Not Available Start: 05-19-2024 End: 05-19-2024 ambulatory CAITLIN AICHHOLZ Not Available Start: 04-20-2024 End: 04-20-2024 ambulatory CAITLIN FINCH Not Available Start: 04-18-2024 End: 04-18-2024 ambulatory ALISON CAGE Not Available Start: 04-13-2024 End: 04-13-2024 ambulatory WADE [facility] Start: 04-08-2024 End: 04-08-2024 ambulatory LUKAS JHAVERI Not Available Start: 03-23-2024 ambulatory SHARA Ras BRITTNI Not Avai lable Start: 03-22-2024 End: 03-22-2024 ambulatory CAITLIN KOREYHOLZ Not Available Start: 03-10-2024 End: 03-10-2024 ambulatory PAUL MONTGOMERYZULEYMA Not Available Start: 03-08-2024 End: 03-08-2024 ambulatory LUKAS Ras JHAVERI Not Available Start: 03-07-2024 End: 03-08-2024 ambulatory SHARA ELKINS Not Available Start: 03-01-2024 End: 03-01-2024 ambulatory [facility] Start: 02-16-2024 End: 02-16-2024 ambulatory CAITLIN STEF Not Available Start: 01-25-2024 End: 01-25-2024 ambulatory LUKAS JHAVERI Not Available Start: 01-19-2024 ambulatory FRANK DIAZ [facility] Start: 01-05-2024 End: 01-05-2024 ambulatory CAITLIN AKIHHOLZ Not Available Start: 12-31-2023 End: 12-31-2023 ambulatory [facility] Start: 12-04-2023 Orders Only Sarika Armendariz mandeep RUBBISH COLLECTOR-HAND II CUTTER Work Phone: [facility] Start: 11-17-2023 End: 11-18-2023 ambulatory CAITLIN FINCH [facility] Start: 11-11-2023 End: 11-11-2023 ambulatory CAITLIN FINCH [facility] Start: 11-11-2023 End: 11-11-2023 Subsequent hospital visit by physician Caitlin Finch Work Phone: [facility] Comment on above: Menopausal symptoms; Vaginal discomfort Start: 11-11-2023 Clinisync Result Encounter Generic External Data Provider [facility] External Department Unsolicited Start: 11-11-2023 Clinisync Result Encounter Generic External Data Provider [facility] External Department Unsolicited Start: 11-06-2023 End: 11-07-2023 ambulatory CAITLIN Mcknight [facility] Start: 11-03-2023 End: 11-03-2023 ambulatory WADE Mcginnis ANASTASIIA [facility] Start: 10-21-2023 End: 10-22-[address] [facility] Start: 10-13-2023 End: 10-13-2023 ambulatory CAITLIN FINCH Not Available Start: 10-06-2023 End: 10-07-[address] [facility] Start: 09-29-2023 End: 09-29-2023 ambulatory Ramona Jimenez Other [facility] Other Start: 09-29-2023 Office outpatient vi sit 25 minutes Ramona Jimenez [facility] Start: 09-16-2023 End: 09-17-[address] [facility] Start: 09-10-2023 End: 09-11-[address] [facility] Start: 09-04-2023 End: 09-05-[address] [facility] Start: 08-19-2023 End: 08-20-2023 [facility] Start: 08-10-2023 End: 08-11-[address] [facility] Start: 08-03-2023 End: 08-04-[address] [facility] Start: 07-30-2023 End: 07-30-2023 ambulatory [facility] Start: 07-27-2023 End: 07-28-2023 [facility] Start: 07-23-2023 End: 07-24-[address] [facility] Start: 07-16-2023 End: 07-17-[address] [facility] Start: 07-09-2023 End: 07-10-[address] [facility] Start: 07-01-2023 End: 07-02-[address] [facility] Start: 06-24-2023 End: 06-25-[address] [facility] Start: 06-19-2023 ambulatory Shaneka Diaz Facility:[id number] Start: 06-17-2023 End: 06-18-2023 ambulatory [facility] Start: 06-10-2023 End: 06-11-[address] [facility] Start: 06-09-2023 ECHO, Provider: EDMUND [facility] ULTRASOUND 01,[id number], Status: Pen, Time: 9:45 AM Caitlin Singletary Stef Work Phone: [facility] 250 DO Work Phone: Start: 06-09-2023 [address] Mrs[address] Caitlin Singletary Stef Nyasia acility:[id number] Start: 06-08-2023 Patient encounter procedure Caitlin Singletary Stef Work Phone: [facility] 250 DO Work Phone: Start: 06-08-2023 ambulatory Shaneka Diaz Facility:[id number] Start: 06-03-2023 End: 06-04-[address] [facility] Start: 05-27-2023 End: 05-28-[address] [facility] Start: 05-21-2023 End: 05-22-[address] [facility] Start: 05-15-2023 Chart Update Caitlin Singletary Mattie lz Work Phone: [facility] 250 DO Work Phone: Start: 05-15-2023 End: [facility] Start: 05-13-2023 ambulatory Mourhaf Traboulssi Faci lity:[id number] Start: 05-13-2023 End: 05-13-2023 ambulatory Mourhaf Traboulssi Facility:[facility] Start: 05-08-2023 End: 05-09-2023 ambulatory [facility] Start: 05-01-2023 End: 05-01-2023 Emergency department patient visit [facility] Start: 05-01-2023 End: 05-01-2023 Emergency department patient visit [facility] DO Work Phone: [facility] ED Comment on above: Poison loli (Primary Dx) Start: 05-01-2023 End: 05-01-2023 [facility] Start: 04-23-2023 Patient encounter procedure Caitlin Singletary Stef Work Phone: [facility] 250 DO Work Phone: Start: 04-23-2023 ambulatory Shaneka Joe Facility:[id number] Start: 04-20-2023 End: 04-21-[address] [facility] Start: 02-18-2023 ambulatory Shaneka Diaz Facility:U Start: 02-18-2023 End: 02-19-[address] [facility] Start: 02-13-2023 End: 02-14-2023 ambulatory [facility] Start: 02-09-2023 End: 02-09-2023 ambulatory DARLENE CAITLIN STEF Facility: Start: 02-04-2023 End: 02-05-2023 ambulatory CAITLIN Mcknight [facility] Start: 01-30-2023 End: 01-31-2023 ambulatory CAITLIN Mcknight [facility] Start: 01-23-2023 End: 01-24-2023 ambulatory CAITLIN Mcknight [facility] Start: 01-16-2023 End: 01-17-2023 [facility] Start: 01-09-2023 End: 01-10-2023 [facility] Start: 01-01-2023 End: 01-01-2023 Subsequent hospital visit by physician Caitlin Finch Work Phone: [email or web address] Comment on above: Dysuria; Pelvic pain Start: 01-01-2023 End: 01-01-2023 Subsequent hospital visit by physician Caitlin Finch Work Phone: [email or web address] Comment on above: Hot flashes Start: 12-30-2022 End: 12-31-[address] [facility] Start: 12-24-2022 End: 12-25-2022 [facility] Start: 12-22-2022 End: 12-22-2022 Patient encounter procedure Roney VILLALTA [facility] Start: 12-17-2022 End: 12-18-2022 [facility] Start: 12-12-2022 End: 12-13-2022 [facility] Start: 12-10-2022 End: 12-11-[address] [facility] Start: 09-03-2022 End: 09-04-[address] RONEY VILLALTA . Facility:H1 Start: 09-01-2022 End: 09-01-2022 Patient encounter procedure Roney VILLALTA [facility] Start: 07-30-2022 End: 07-31-2022 ambulatory HAND II CUTTER CAITLIN FINCH Facility:H1 Start: 07-18-2022 End: 07-18-2022 ambulatory Jaelyn Bright Other [employer] Other Start: 07-18-2022 Office outpatient vi sit 15 minutes Jaelyn Bright [facility] Start: 07-06-2022 End: 07-06-[address] ALANNAH SPEARS . Facility:H1 Start: 07-04-2022 ambulatory DARLENE FINCH Facil ity:H1 Start: 07-04-2022 End: 07-04-[address] CHIDI MORALES Facility:[facility]1 Start: 07-02-2022 End: 07-03-2022 ambulatory DARLENE FINCH Facility:[facility]1 Start: 06-18-2022 End: 06-18-2022 Subsequent hospital visit by physician Caitlin Finch Work Phone: [facility] Comment on above: Postcoital bleeding Start: 01-01-2022 End: 01-01-2022 Patient encounter procedure DO Fernando Ragsdale Work Phone: [facility] [address] Start: 12-18-2020 End: 12-18-2020 Subsequent hospital visit by physician Caitlin Finch [facility] Comment on above: Fatigue, unspecified type Start: 11-05-2020 End: 11-09-2020 Subsequent hospital visit by physician Mesha Covid19 Pat Screening Schedule [facility] PRE ADMIT Comment on above: Preoperative testing Start: 10-05-2020 End: 10-07-2020 Subsequent hospital visit by physician [facility] Ultrasound Room [facility] Ultrasound Comment on above: Abnormal mammogram Start: 08-31-2020 End: 09-02-2020 Subsequent hospital visit by physician [facility] Mammography Room [facility] Comment on above: Hot flashes Screening mammogram, encounter for Start: 07-12-2020 End: 07-14-2020 Subsequent hospital visit by physician [facility] Ultrasound Room [facility] Ultrasound Comment on above: History of menorrhag ia Start: 07-05-2020 End: 07-05-2020 Subsequent hospital visit by physician [facility] Comment on above: Screening for cervic al cancer; History of menorrhagia Start: 06-21-2018 Adult health examination Ramona Jimenez Other [employer] Other Procedures Date Procedure Procedure Detail Performing Clinician Start: 02-18-2024 Mammography Caitlin Finch NP Work Phone: Start: 11-11-2023 ALL FOLLICLE STIMULATING HORMONE Generic External Data Provider Start: 11-11-2023 Gonadotropin follicle stimulating hormone Frank Diaz RUBBISH COLLECTOR - CNM Work Phone: Start: 11-11-2023 MHPT ESTRADIOL Generic External Data Provider Start: 06-09-2023 Echocardiography Caitlin Finch Work Phone: Start: 01-01-2023 Iadna mary species direct probe tq Frank Diaz RUBBISH COLLECTOR - CNM Work Phone: Start: 01-01-2023 Gonadotropin follicle stimulating hormone Frank Diaz RUBBISH COLLECTOR - CNM Work Phone: Start: 01-01-2022 MRI of head DO Fernando Ragsdale Work Phone: Start: 06-26-2021 Colonoscopy Generic Provider Start: 06-26-2021 Colonoscopy Roney VILLALTA Start: 06-26-2021 Esophagogastroduodenoscopy oRney Kaiser Start: 12-18-2020 Blood count complete auto&auto [...] Us transvaginal Frank Diaz Work Phone: Start: 07-05-2020 Microscopic observation [Identifier] in Cervix by Cyto stain Caitlin Finch NP Work Phone: Start: 09-28-2017 Fracture of bone of nasal sinus (disorder) Roney VILLALTA Appendectomy Roney VILLALTA Appendectomy Caitlin Prabhakarhjose harvey Work Phone: Colonoscopy Caitlin Prabhakarhhol z Work Phone: Comment on above: 2021; Counseling Ramona Jimenez Other Depression screening Ramona carmona Other Esophagogastroduodenoscopy L dayanaalisson Finch Work Phone: Hysterectomy Caitlin Prabhakarhhol z Work Phone: Plan of Treatment Date Care Activity Detail Author Start: 06-26-2031 Screening for malignant neoplasm of colon [facility] Start: 09-05-2025 DTaP,Tdap and Td Vaccines (2 - Td or Tdap) DTaP,Tdap and Td Vaccines (2 - Td or Tdap) [facility] Start: 09-05-2025 DTaP/Tdap/Td vaccine (2 - Td or Tdap) DTaP/Tdap/Td vaccine (2 - Td or Tdap) NOBLE MARTINEZ [facility] Start: 07-05-2025 Screening for malignant neoplasm of cervix Cervical cancer screen [facility] [place], [place] Start: 02-17-2025 Screening for malignant neoplasm of breast Mammogram [facility] Start: 11-15-2024 End: 11-15-2024 Patient encounter procedure 11/15/2024 3:45 PM EST Office Visit [facility] [address] [place], [place] [id number] Frank Diaz, RUBBISH COLLECTOR - CNM [address] [place], [place] [id number] PAP [facility] Comment on above: PAP Start: 11-11-2024 Medicare Annual Wellness (AWV) Medicare Annual Wellness (AWV) [facility] Start: 10-05-2024 End: 10-05-2024 Patient encounter procedure 10/05/2024 1:00 PM EST Office Visit [facility] [address] [place] [place] [address] Caitlin Finch NP [address] [place] [address] [facility] Start: 08-30-2024 End: 08-30-2024 Patient encounter procedure 08/30/2024 2:20 PM EST Office Visit [facility] [address] [facility] [place] [id number] Alison Cage NP [address] [place] [address] [facility] Start: 08-08-2024 End: 08-08-2024 Patient encounter procedure 08/08/2024 2:40 PM EST Office Visit [facility] [address] [place] [id number] Alison Cage NP [address] [place] [address] [facility] Start: 07-11-2024 End: 07-11-2025 Acetylcholine receptor, binding Acetylcholine receptor, binding Lab Routine Weakness Expected: 07/11/2024 (Approximate), Expires: 07/11/2025 [facility] Comment on above: Expected: 07/11/2024 (Approximate), Expi res: 07/11/2025 Start: 07-11-2024 End: 07-11-2025 Acetylcholine receptor, blocking Acetylcholine receptor, blocking Lab Routine Weakness Expected: 07/11/2024 (Approximate), Expires: 07/11/2025 [facility] Comment on above: Expected: 07/11/2024 (Approximate), Expi res: 07/11/2025 Start: 07-11-2024 End: 07-11-2025 Acetylcholine receptor, modulating Acetylcholine receptor, modulating Lab Routine Weakness Expected: 07/11/2024 (Approximate), Expires: 07/11/2025 [facility] Comment on above: Expected: 07/11/2024 (Approximate), Expi res: 07/11/2025 Start: 07-11-2024 End: 07-11-2025 Comprehensive metabolic 2000 panel - Serum or Plasma Comprehensive metabolic panel Lab Routine Weakness Expected: 07/11/2024 (Approximate), Expires: 07/11/2025 [facility] Comment on above: Expected: 07/11/2024 (Approximate), Expi res: 07/11/2025 Start: 07-11-2024 End: 07-11-2025 Creatine kinase [Enzymatic activity/volume] in Serum or Plasma CK Lab Routine Weakness Expected: 07/11/2024 (Approximate), Expires: 07/11/2025 [facility] Comment on above: Expected: 07/11/2024 (Approximate), Expi res: 07/11/2025 Start: 07-11-2024 End: 07-11-2025 MR Brain WO and W contrast IV MR brain w and wo contrast routine Imaging Routine Memory difficulty Abnormal brain MRI Expected: 07/11/2024 (Approximate), Expires: 07/11/2025 [facility] Work Phone: Comment on above: Expected: 07/11/2024 (Approximate), Expi res: 07/11/2025 Start: 07-11-2024 End: 07-11-2025 MUSK ANTIBODY TEST MUSK ANTIBODY TEST Lab Routine Weakness Expected: 07/11/2024 (Approximate), Expires: 07/11/2025 [facility] Comment on above: Expected: 07/11/2024 (Approximate), Expi res: 07/11/2025 Start: 07-11-2024 End: 07-11-2025 Myoglobin, serum Myoglobin, serum Lab Routine Weakness Expected: 07/11/2024 (Approximate), Expires: 07/11/2025 [facility] Comment on above: Expected: 07/11/2024 (Approximate), Expi res: 07/11/2025 Start: 07-11-2024 End: 07-11-2025 Nuclear Ab [Titer] in Serum by Immunofluorescence JOSE Lab Routine Weakness Expected: 07/11/2024 (Approximate), Expires: 07/11/2025 [facility] Comment on above: Expected: 07/11/2024 (Approximate), Expi res: 07/11/2025 Start: 07-11-2024 End: 07-11-2025 Thyrotropin [Units/volume] in Serum or Plasma TSH Lab Routine Weakness Expected: 07/11/2024 (Approximate), Expires: 07/11/2025 [facility] Comment on above: Expected: 07/11/2024 (Approximate), Expi res: 07/11/2025 Start: 07-04-2024 End: 07-04-2024 Patient encounter procedure 07/04/2024 2:20 PM EDT Office Visit [facility] [address] [place] [address] Alison Cage, MATERIAL DISTRIBUTOR [address] [place] [address] [facility] [address] [facility] Start: 01-27-2024 Screening for malignant neoplasm of breast Mammogram [facility] Comment on above: Postponed from 2018 (Other Medical Reasons) Start: 12-23-2023 Tobacco Screening Tobacco Screening [facility] Start: 12-17-2023 End: 12-17-2023 Patient encounter procedure 12/17/2023 3:20 PM EDT Office Visit [facility] [address] [place] [address] Caitlin Finch NP [address] [place] [address] [facility] Start: 12-10-2023 End: 12-10-2023 Patient encounter procedure 12/10/2023 4:30 PM EDT Appointment [facility] [address] [place], [place] [id number] Frank Diaz, RUBBISH COLLECTOR - CNM [address] [place], [place] [phone] epic* sched loida Prajapati from doc ofc [facility] Comment on above: epic* sched loida Prajapati from doc ofc Start: 10-06-2023 Screening for malignant neoplasm of cervix Cervical cancer screen [place], [place] Start: 07-30-2023 FUV, Provider: Shaneka Diaz, Status: Pen, Time: 2:30 PM FUV, Provider: Shaneka Diaz, Status: Pen, Time: 2:30 PM [facility] 250 DO Work Phone: Start: 07-05-2023 Screening for malignant neoplasm of cervix Pap Smear [facility] Start: 06-23-2023 End: 06-23-2023 Patient encounter procedure 06/23/2023 Office Visit Obstetrics and Gynecology Frank Diaz, RUBBISH COLLECTOR - CNM [address] [place] [address] [facility]ST[facility]ECOLOG[facility] Start: 06-15-2023 FUV, Provider: Shaneka Diaz, Status: Pen, Time: 2:00 PM FUV, Provider: Shaneka Diaz, Status: Pen, Time: 2:00 PM [facility] 250 DO Work Phone: Start: 06-08-2023 HOLTER 48, Provider: WILLARD HU SOUND ART INSTRUCTOR 1,[id number], Status: Pen, Time: 2:15 PM HOLTER 48, Provider: WILLARD HU SOUND ART INSTRUCTOR 1,[id number], Status: Pen, Time: 2:15 PM [facility] 250 DO Work Phone: Start: 06-08-2023 ECHO, Provider: EDMUND [facility] ULTRASOUND 01,[id number], Status: Pen, Time: 1:30 PM ECHO, Provider: EDMUND [facility] ULTRASOUND 01,[id number], Status: Pen, Time: 1:30 PM [facility] 250 DO Work Phone: Start: 05-29-2023 Influenza vaccination Influenza Vaccine [facility] Start: 05-13-2023 SURGNONUH, Provider: Anya Watkins, Status: Pen, Time: 10:00 AM SURGNONUH, Provider: Anya Watkins, Status: Pen, Time: 10:00 AM [facility] 250 DO Work Phone: Start: 04-28-2023 Influenza vaccination [facility] Start: 2023 Screening for malignant neoplasm of colon [facility] Start: 01-11-2023 Adult BMI Screening Adult BMI Screening [facility] Start: 07-10-2022 End: 07-10-2022 Patient encounter procedure 07/10/2022 Appointment Radiology [facility] Start: 05-29-2022 Influenza vaccination Flu vaccine (#1) [facility] Start: 10-06-2021 Screening for malignant neoplasm of cervix Cervical cancer screen [facility], [place] Start: 07-05-2021 Depression Screen Depression Screen [facility] Start: 01-02-2021 End: 01-02-2021 Office Visit 01/02/2021 Office Visit Obstetrics and Gynecology Frank Diaz, RUBBISH COLLECTOR - CNM [address] [place] [address] [phone] [facility]ST[facility]YNECOLOG[facility] Start: 01-01-2021 End: 01-01-2021 Office Visit 01/01/2021 Office Visit Obstetrics and Gynecology Lance Keturah Plasencia, [address] [place] [address] [facility]ST[facility]YNECOLOG[facility] Start: 12-18-2020 End: 12-18-2020 Office Visit 12/18/2020 Office Visit Obstetrics and Gynecology LanceKeturah Huang, [address] [place] [address] [facility] OBSTET[facility]YNECOLOG[facility] Start: 11-27-2020 End: 11-27-2020 Office Visit 11/27/2020 Office Visit Obstetrics and Gynecology Lance Keturah Plasencia, [facility] [place] [address] [facility]YNECOLOG[facility] Start: 11-12-2020 End: 11-12-2020 Hospital Encounter [facility] Comment on above: HYSTERECTOMY VAGINAL LAPAROSCOPIC ROBOTI C ASSISTED-POSSIBLE BSO, POSSIBLE LAPAROSCOPIC COLPOPEXY Start: 11-12-2020 End: 11-12-2020 Hospital Encounter [facility] Comment on above: HYSTERECTOMY VAGINAL LAPAROSCOPIC ROBOTI C ASSISTED-POSSIBLE BSO, POSSIBLE LAPAROSCOPIC COLPOPEXY Start: 10-29-2020 End: 10-29-2020 Office Visit 10/29/2020 Office Visit Obstetrics and Gynecology LanceKeturah Huang DO [address] [place] [address] [facility]YNECOLOG[facility] Start: 09-03-2020 End: 09-03-2020 Office Visit 09/03/2020 Office Visit Obstetrics and Gynecology Lance Keturah Plasencia, [address] [place] [address] [facility]ECOLOG[facility] Start: 08-31-2020 End: 08-31-2020 Appointment 08/31/2020 Appointment Radiology [facility] Start: 07-12-2020 End: 07-12-2020 Appointment 07/12/2020 Appointment Radiology [facility] Start: 05-29-2020 Influenza vaccination Flu vaccine (#1) [place], [place] Start: 2018 Diabetes screen Diabetes screen [place], [place] Start: 2018 Lipid panel [facility] Start: 2013 Diabetes screen Diabetes screen [facility] Start: 2008 Screening for malignant neoplasm of cervix HPV/Cotest [facility] Start: 1999 Screening for malignant neoplasm of cervix Pap Smear [facility] Start: 1997 DTaP/Tdap/Td vaccine (1 - Tdap) DTaP/Tdap/Td vaccine (1 - Tdap) [facility] Start: 1996 Hepatitis C screening Hepatitis C screen [facility] Start: 1994 COVID-19 Vaccine (1) COVID-19 Vaccine (1) [facility] Work Phone: Start: 1993 HIV screening HIV screen [facility] Start: 1990 Depression Monitoring Depression Monitoring [facility] Start: 1990 Depression Screening Depression Screening [facility] Start: 1978 COVID-19 Vaccine (#1) COVID-19 Vaccine (#1) [facility] Start: 1978 Hepatitis B vaccine (1 of 3 - 3-dose series) Hepatitis B vaccine (1 of 3 - 3-dose series) [facility] Start: 1978 Hepatitis C screening Hepatitis C screen [place], [place] Start: 1978 Screening for malignant neoplasm of colon [facility] End: 07-05-2020 C.trachomatis N.gonorrhoeae DNA, Thin Prep C.trachomatis N.gonorrhoeae DNA, Thin Prep Microbiology Routine History of menorrhagia 1 Occurrences starting 07/05/2020 until 07/05/2020 [place], [place] Comment on above: 1 Occurrences starting 07/05/2020 until 07/05/2020 C.trachomatis N.gono rrhoeae DNA, Thin Prep C.trachomatis N.gonorrhoeae DNA, Thin Prep Microbiology Routine History of menorrhagia 07/05/2020 5:13 PM EDT [facility] End: 06-18-2022 Culture, Genital [facility] [employer] Work Phone: Comment on above: 1 Occurrences starting 06/18/2022 until 06/18/2022 End: 11-11-2023 Culture, Genital [facility] [employer] [facility] Comment on above: 1 Occurrences starting 11/11/2023 until 11/11/2023 End: 01-01-2023 Culture, Urine [facility] [employer] Work Phone: Comment on above: 1 Occurrences starting 01/01/2023 until 01/01/2023 End: 07-05-2020 Cytopathology procedure, preparation of smear, genital source [facility] Lab Routine Screening for cervical cancer 1 Occurrences starting 07/05/2020 until 07/05/2020 [facility] Comment on above: 1 Occurrences starting 07/05/2020 until 07/05/2020 End: 08-31-2020 SHAYLEE ANTONIO DIGITAL SCREEN BILATERAL SHAYLEE ANTONIO DIGITAL SCREEN BILATERAL Imaging Routine Screening mammogram, encounter for 1 Occurrences starting 08/31/2020 until 08/31/2020 [facility] Comment on above: 1 Occurrences starting 08/31/2020 until 08/31/2020 SHAYLEE ANTONIO DIGITAL SCR EEN BILATERAL SHAYLEE ANTONIO DIGITAL SCREEN BILATERAL Imaging Routine Screening mammogram, encounter for 08/31/2020 5:14 PM EST [facility] Immunizations Immunization Date Immunization Notes Care Provider [employer] 09-05-2015 tetanus toxoid, redu gil diphtheria toxoid, and acellular pertussis vaccine, adsorbed Jaelyn Bright Other [facility] 07-23-2009 influenza, whole Roney YEMI ERS [facility] 07-23-2009 influenza virus vaccine, unspecified formulation Sarika Rowell APRN-HAND II CUTTER Work Phone: [facility] [employer] Payers Date Payer Category Payer Medicare [employer] MEDICARE [employer] [place] [id number] 2024-Present [address] [place] [address] [id number] 2024 Medicare (Managed Care) [facility] [id number] 2024 Medicare [id number] 2023 Medicare [id number] 2023 Medicare [id number] 2023 Self-pay [id number] 2023 Medicaid [employer] MEDICAID [employer] [place] [id number] 2023-Present [address] [place] [address] [id number] 2023 Private Health Insurance [id number]. 7.3.865237.315 2023 Private Health Insurance [id number] .[id number]. 7.3.137250.315 2022 Private Health Insurance [id number] 1.2.840.019010.1.13.239.2. 7.3.488150.315 1978 Unknown [id number] 2.16.840.1.303795.3.579.2. 593 1978 Unknown [id number] 2.16.840.1.271682.3.579.2. 593 1978 Unknown [id number] 2.16.840.1.353486.3.579.2. 593 1978 Unknown [id number] 2.16.840.1.435499.3.579.2. 593 1978 Unknown [id number] 2.16.840.1.894050.3.579.2. 593 1978 Unknown [id number] 2.16.840.1.714034.3.579.2. 593 1978 Unknown [id number] 2.16.840.1.637987.3.579.2. 593 1978 Unknown [id number] 2.16.840.1.358619.3.579.2. 356 1978 Unknown [id number] 2.16.840.1.673742.3.579.2. 356 1978 Unknown [id number] 2.16.840.1.005553.3.579.2. 356 1978 Unknown [id number] 2.16.840.1.466300.3.579.2. 356 1978 Unknown [id number] 2.16.840.1.479087.3.579.2. 1068 1978 Unknown [id number] 2.16.840.1.514702.3.579.2. 1068 1978 Unknown [id number] 2.16.840.1.418797.3.579.2. 1244 1978 Unknown [id number] 2.16.840.1.855189.3.579.2. 176 1978 Unknown [id number] 2.16.840.1.110502.3.579.2. 176 1978 Unknown [id number] 2.16.840.1.651117.3.579.2. 176 1978 Unknown [id number] 2.16.840.1.161786.3.579.2. 176 1978 Unknown [id number] 2.16.840.1.373126.3.579.2. 176 1978 Unknown [id number] 2.16.840.1.230986.3.579.2. 176 1978 Unknown [id number] 2.16.840.1.419716.3.579.2. 176 1978 Unknown [id number] 2.16.840.1.412916.3.579.2. 176 1978 Unknown [id number] 2.16.840.1.983297.3.579.2. 176 1978 Unknown [id number] 2.16.840.1.681284.3.579.2. 176 1978 Unknown [id number] 2.16.840.1.472713.3.579.2. 176 1978 Unknown [id number] 2.16.840.1.939649.3.579.2. 176 1978 Unknown [id number] 2.16.840.1.325267.3.579.2. 176 1978 Unknown [id number] 2.16.840.1.254364.3.579.2. 176 1978 Unknown [id number] 2.16.840.1.272004.3.579.2. 176 1978 Unknown [id number] 2.16.840.1.820454.3.579.2. 176 1978 Unknown [id number] 2.16.840.1.902600.3.579.2. 176 1978 Unknown [id number] 2.16.840.1.586919.3.579.2. 176 1978 Unknown [id number] 2.16.840.1.222630.3.579.2. 176 1978 Unknown [id number] 2.16.840.1.883304.3.579.2. 176 1978 Unknown [id number] 2.16.840.1.772042.3.579.2. 176 1978 Unknown [id number] 2.16.840.1.881802.3.579.2. 176 1978 Unknown [id number] 2.16.840.1.137983.3.579.2. 176 1978 Unknown [id number] 2.16.840.1.812252.3.579.2. 176 1978 Unknown [id number] 2.16.840.1.828087.3.579.2. 176 1978 Unknown [id number] 2.16.840.1.907347.3.579.2. 176 1978 Unknown [id number] 2.16.840.1.987354.3.579.2. 176 1978 Unknown [id number] 2.16.840.1.574479.3.579.2. 176 1978 Unknown [id number] 2.16.840.1.076131.3.579.2. 176 1978 Unknown [id number] 2.16.840.1.957756.3.579.2. 176 1978 Unknown [id number] 2.16.840.1.197678.3.579.2. 176 1978 Unknown [id number] 2.16.840.1.128486.3.579.2. 176 1978 Unknown [id number] 2.16.840.1.397112.3.579.2. 176 1978 Unknown [id number] 2.16.840.1.119373.3.579.2. 176 1978 Unknown [id number] 2.16.840.1.980757.3.579.2. 176 1978 Unknown [id number] 2.16.840.1.871081.3.579.2. 176 1978 Unknown [id number] 2.16.840.1.102847.3.579.2. 176 1978 Unknown [id number] 2.16.840.1.574301.3.579.2. 176 1978 Unknown [id number] 2.16.840.1.703102.3.579.2. 1978 Unknown [id number] 2.16.840.1.880433.3.579.2. 1978 Unknown [id number] 2.16.840.1.357970.3.579.2. 173 1978 Unknown [id number] 2.16.840.1.926018.3.579.2. 1258 1978 Unknown [id number] 2.16.840.1.806669.3.579.2. 1258 1978 Unknown [id number] 2.16.840.1.515098.3.579.2. 1258 1978 Unknown [id number] 2.16.840.1.966168.3.579.2. 1258 1978 Unknown [id number] 2.16.840.1.814747.3.579.2. 1258 1978 Unknown [id number] 2.16.840.1.020826.3.579.2. 1258 1978 Unknown [id number] 2.16.840.1.159181.3.579.2. 1258 1978 Unknown [id number] 2.16.840.1.946134.3.579.2. 1258 1978 Unknown [id number] 2.16.840.1.306347.3.579.2. 1258 1978 Unknown [id number] 2.16.840.1.368768.3.579.2. 1258 1978 Unknown [id number] 2.16.840.1.153597.3.579.2. 1258 1978 Unknown [id number] 2.16.840.1.764249.3.579.2. 1258 1978 Unknown [id number] 2.16.840.1.686863.3.579.2. 1258 1978 Unknown [id number] 2.16.840.1.757893.3.579.2. 1258 1978 Unknown [id number] 2.16.840.1.744541.3.579.2. 1258 1978 Unknown [id number] 2.16.840.1.274899.3.579.2. 1258 1978 Unknown [id number] 2.16.840.1.702714.3.579.2. 1258 1978 Unknown [id number] 2.16.840.1.332256.3.579.2. 1285 1978 Unknown [id number] 2.16.840.1.685714.3.579.2. 1285 1978 Unknown [id number] 2.16.840.1.009705.3.579.2. 1285 1978 Unknown [id number] 2.16.840.1.855577.3.579.2. 1285 1978 Unknown [id number] 2.16.840.1.339284.3.579.2. 1285 1978 Unknown [id number] 2.16.840.1.298746.3.579.2. 1978 Unknown [id number] 2.16.840.1.606112.3.579.2. 727 1959 Unknown [id number] 1.2.840.021857.1.13.239.2. 7.3.334133.315 1959 Unknown [id number] 1.2.840.332605.1.13.239.2. 7.3.584221.315 Unknown Unknown [id number] 2.16.840.1.252036.3.579.2. 531 Social History Date Type Detail Facility Start: 10-06-2018 End: 07-05-2020 Tobacco smoking status NHIS Never smoker [place] Start: 07-05-2020 End: 07-11-2024 Tobacco use and exposure Never used [facility] Start: 07-05-2020 End: 07-11-2024 Alcohol intake Current drinker of alcohol (finding) [place] Start: 07-05-2020 End: 11-21-2020 Alcohol Comment social [place] Start: 1980 Sex Assigned At Not on file [place] Start: 06-08-2022 End: 06-18-2022 Exposure to SARS-CoV-2 (event) Not sure [place], [place] Start: 1980 Sex Assigned At Female [facility] Start: 05-01-2023 End: 03-21-2024 Sex Assigned At [facility] Start: 07-03-2021 End: 07-11-2024 Tobacco smoking status Ex-smoker (finding) [facility] Tobacco smoking status Never [facility] Start: 05-01-2023 End: 03-21-2024 Occasional caffeine consumption Occasional caffeine consumption [employer] Start: 05-01-2023 History SDOH Alcohol Frequency 2 [employer] Start: 05-01-2023 History SDOH Alcohol Std Drinks 1 [facility] History of tobacco use Current smoker [facility] History of tobacco use Cigarette Smoker [facility] How often to you hav e a drink containing alcohol? Monthly or less [employer] How many standard dr inks containing alcohol do you have on a typical day? 1 or 2 [facility] How often do you hav e 6 or more drinks on 1 occasion? Less than monthly [employer] [employer] Start: 06-25-2023 Alcohol Comment 1-2 drinks 2-4 x a month in the past year, Caffeine intake: none [facility] History of tobacco use Passive smoker [facility] Do you belong to any clubs or organizations such as tenriism groups, unions, fraternal or athletic groups, or school groups? No [facility] Are you now , , , , never or living with a partner? Living with partner [facility] How often do you hav e 6 or more drinks on 1 occasion? Never [facility] How hard is it for y ou to pay for the very basics like food, housing, medical care, and heating Somewhat hard [facility] Do you feel stress - tense, restless, nervous, or anxious, or unable to sleep at night because your mind is troubled all the time - these days [OSQ] To some extent [facility] (I/We) worried wheth er (my/our) food would run out before (I/we) got money to buy more. Sometimes true [facility] The food that (I/we) bought just didn't last, and (I/we) didn't have money to get more. Never true [facility] Start: 06-13-2024 Alcohol Comment Caffeine intake: none [facility] Medical Equipment Procedure Code Equipment Code Equipment Origin al Text Equipment Identifier Dates fluorescein ophthalmic strip 1 mg [id number] Start: 05-01-2023 End: 05-01-2023 Goals Date Patient Goal Desired Activity /State Personal health goal Comment on above: Formatting of this n ote might be different from the original. Evaluation of progress towards goal: Safe dc transition from hospital to home with family support. Functional Status Date Assessment Result Facility 12-22-2022 Functional Status N/A [facility] 09-01-2022 Functional Status N/A [facility] Clinical Notes 07-18-2022 to 07-11-2024 Alison Cage NP - 07/11/2024 2:00 PM EDTPatient Tonja Finch NP - 06/28/2024 8:17 PM Sergio Finch NP - 06/28/2024 8:17 PM Sergio Finch NP - 06/28/2024 8:16 PM EDT Note Date & Type Note Facility 07-11-2024 History of Presen t illness Narrative Images from the original note were not included. Alison Cage NP Chief Complaint Patient presents with Follow-up Subjective Andrea Long is a 44 y.o. female. HPI The patient presents today for follow up. MRI of the brain was ordered in April 2024. However, the patient did not have this completed. She states she was unaware that it was approved and would like to have the MRI completed. She continues to follow with Dr. Laurent for psychiatry. She follows with OBGYN and was recently told she is going through menopause. She was started on estrogen therapy to help control menopausal symptoms. Orthopedic surgery recommended ongoing follow up for possible hip scope. The patient denies any seizure-like activity or syncopal episodes since the prior neurology appointment. She denies alteration of awareness, acute confusion, tongue/cheek biting, or bowel/bladder incontinence since that time. She takes Keppra as prescribed and does not miss doses. The patient has had approximately 1 to 2 migraines per week recently. These are accompanied by nausea and increased sensitivity to light/sound. They are not accompanied by vomiting, numbness, paresthesias, or weakness. Imitrex and an ice pack continue to help relieve her migraines. The patient reports chronic fatigue and fluctuating, generalized weakness. She states her body will often feel, achy everywhere. Her weakness is not necessarily fatigable, and she denies swallowing difficulty. She denies any further new concerns. Review of Systems Constitutional: Positive for fatigue and hot flashes. Negative for appetite change, chills, fever and unexpected weight change. HENT: Negative for trouble swallowing and voice change. Eyes: Negative for visual change, double vision or loss of vision Respiratory: Positive for shortness of breath (upon exertion - following with primary care provider). Negative for cough and wheezing. Cardiovascular: Negative for chest pain and palpitations. Gastrointestinal: Negative for abdominal pain, blood in stool and vomiting. Musculoskeletal: Positive for arthralgias and myalgias. Negative for gait problem. Positive for pain Neurological: Positive for weakness, numbness and headaches (associated with photophobia/phonophobia and nausea). Negative for dizziness, tremors, seizures, syncope, facial asymmetry, speech difficulty and light-headedness. Positive for paresthesias and memory difficulty Psychiatric/Behavioral: Negative for hallucinations and suicidal ideas. Positive for anxiety and depression Medication List albuterol HFA 90 mcg/act inhaler; Inhale 2 puffs every 6 (six) hours if needed for wheezing Breztri Aerosphere 160-9-4.8 MCG/ACT aerosol; Generic drug: Ybgzows-Kxldhyyegar-Ntauwvdwwq clonazePAM 1 MG tablet; Commonly known as: KlonoPIN estradiol 0.05 MG/24 HR; Commonly known as: Climara levETIRAcetam 500 MG tablet; Commonly known as: Keppra potassium citrate CR 10 mEq ER tablet; Commonly known as: Urocit-K-10 pregabalin 200 MG capsule; Commonly known as: Lyrica; Take 1 capsule (200 mg) by mouth in the morning and 1 capsule (200 mg) before bedtime. PROzac 40 MG capsule; Generic drug: FLUoxetine SUMAtriptan 100 MG tablet; Commonly known as: Imitrex; Take 1 tablet (100 mg) by mouth 1 (one) time if needed for migraine Take 100 mg by mouth 1 (one) time if needed for migraine, may repeat again in 2 hours if needed. No more than 2 pills in 24 hours. No more than twice in 1 week tiZANidine 4 MG tablet; Commonly known as: Zanaflex; Take 1 tablet (4 mg) by mouth as needed at bedtime for muscle spasms Past Medical History: Diagnosis Date Anxiety Arthralgia 12/17/2023 Chest pain 12/17/2023 Chronic migraine without aura without status migrainosus, not intractable (CMS/[facility]) 09/14/2023 COPD (chronic obstructive pulmonary disease) (CMS/[facility]) COVID-19 virus detected 12/17/2023 Depression (CMS/HCC) Dysphagia 12/17/2023 Family history of mitral valve prolapse Fatigue 12/17/2023 Fibromyalgia diagnosed by rheumatology at [facility] Fibromyalgia, primary Headache Irritable bowel syndrome with constipation and diarrhea Kidney stone on right side Lumbar back pain 12/17/2023 Migraine (CMS/HCC) Migraine, chronic, without aura (CMS/HCC) Neuritis of right median nerve 12/17/2023 Other emphysema (CMS/HCC) 08/26/2023 PFT 08/26/23: FVC 87 FEV1 81 FVC/FEV1 75 COPD Ovarian cyst, left 12/17/2023 Panic disorder (CMS/HCC) Premenstrual tension syndrome Seizure disorder (CMS/HCC) Severe episode of recurrent major depressive disorder, without psychotic features (HCC) (CMS/HCC) 06/13/2021 Temporomandibular joint disorders Urge incontinence 12/17/2023 Past Surgical History: Procedure Laterality Date APPENDECTOMY 08/1999 OTHER SURGICAL HISTORY 12/08/2017 PARTIAL HYSTERECTOMY Family History Problem Relation Name Age of Onset Diabetes Mother Hypertension Mother Heart disease Mother's Sister Mental illness Maternal Grandmother Lupus Maternal Grandmother Heart disease Maternal Grandfather Allergies Other Alzheimer's disease Other Cancer Other Stroke Other Depression Other Developmental delay Other Diabetes Other Eczema Other Irritable bowel syndrome Other Mental illness Other Migraines Other Social History Tobacco Use Smoking status: Former Current packs/day: 0.25 Average packs/day: 0.3 packs/day for 21.0 years (5.3 ttl pk-yrs) Types: Cigarettes Passive exposure: Past Smokeless tobacco: Never Substance Use Topics Alcohol use: Yes Alcohol/week: 3.0 standard drinks of alcohol Types: 3 Glasses of wine per week Comment: Caffeine intake: none Allergies: Amitriptyline, Bee pollen, Bupropion, Reglan [metoclopramide], Amoxicillin, and Penicillins Vitals: 07/11/24 1349 BP: 146/82 Pulse: 81 SpO2: 97% Body mass index is 31.88 kg/m . weight: 191 lb 9.6 oz Neurologic exam: Mental status and general appearance: Awake and alert with unlabored respirations. Oriented to person, place, and time. Recent and remote memory are intact. Speech is clear and fluent without aphasia. Attention and concentration are normal. Fund of knowledge is appropriate for level of education. Flat affect. Cranial nerves: CN II: Visual acuity is normal. Visual matthews full to confrontation. CN III, IV, : Pupils are equal, round, and reactive to light. Extraocular movements intact. No ptosis present. CN V: Facial sensation is normal. CN VII: Full and symmetric facial movement. CN VIII: Hearing is normal to finger rub bilaterally. CN IX and X: Palate elevates symmetrically. CN XI: Shoulder shrug is normal bilaterally. CN XII: Tongue is midline without atrophy or fasciculation. Motor: RUE strength deltoid , biceps , triceps , wrist extensors , wrist flexor , and vice president risk management strength 5/5. LUE strength deltoid , biceps , triceps , wrist extensors , wrist flexor , and vice president risk management strength 5/5. RLE strength iliopsoas, quadriceps, tibialis anterior, plantar flexion, and dorsiflexion strength 5/5. LLE strength iliopsoas, quadriceps, tibialis anterior, plantar flexion, and dorsiflexion strength 5/5. Tone and bulk are normal. Sensory: Sensation is intact to light touch throughout all four extremities. Sensation is intact to temperature in all extremities. Widespread soft tissue tenderness upon palpation Reflexes: RUE biceps reflex 3+ , brachioradialis reflex 3+. LUE biceps reflex 3+ , brachioradialis reflex 3+. RLE Knee reflex 2+. LLE Knee reflex 3+. Griffiths's Sign negative. Coordination: Duugwi-cw-spul testing normal. Rapid alternating movements are normal. Gait: Normal. Review and summary of old records: Labs at [facility] on 03/25/23: Vitamin B12 level 550. TSH 0.852. MRI of the brain at [facility] on 01/08/22 : No acute intracranial process. No clear structural etiology to account for seizures. MRI of the brain at [facility] [place] on 01/01/22: No acute intracranial pathology or abnormal postcontrast enhancement. There are a few nonspecific foci of subcortical white matter T2 and T2 FLAIR hyperintense signal. These may be a product of demyelinating disease, vasculitis, or vascular migraine amongst other possibilities. There is mild frontal atrophy which is atypical for the patient's age. There is volume loss within the pituitary with mild flattening of the dome of the pituitary which is atypical for the patient's age. EMG of the BUE 01/21/22: Unremarkable. EMG of the BLE 01/23/22: Unremarkable. Assessment/Plan Diagnoses and all orders for this visit: Migraine without aura and without status migrainosus, not intractable (CMS/HCC) The patient has a long-standing history of episodic migraines. Reportedly, these started around 20 years ago. Imitrex (prescribed by primary care provider) is highly effective for abortive treatment, however, it does cause some fatigue. Naratriptan was ineffective previously, and Ubrelvy and Nurtec also caused fatigue. PLAN: - Okay to continue Imitrex 100 mg by mouth as needed for breakthrough migraines. Take no more than 2 doses in 24 hours. The patient has tolerated this medication best for abortive treatment Anxiety and depression (CMS/HCC) The patient is established with Dr. Laurent ([facility] psychiatry) for anxiety and depression. She denies suicidal or homicidal ideations. PLAN: - Continue to follow up closely with psychiatry for management Paresthesia The patient reports intermittent numbness and tingling in the bilateral palms/soles. Previous BUE and BLE EMGs were normal. MRI of the brain on 01/01/22 was nonacute and identified chronic white matter changes. Given these results, I have suspicion that chronic nonspecific pain and the above findings are suggestive of fibromyalgia. The patient previously took gabapentin 800 mg PO TID and was switched to Lyrica by her primary care provider with similar effectiveness. Amitriptyline was not tolerated previously. PLAN: - She is taking Lyrica 200 mg by mouth twice a day (managed by outside provider) Fibromyalgia See above. Memory difficulty Abnormal brain MRI The patient reports subjective memory impairment, primarily with short-term recall. She remains independent with all activities of daily living and denies any significant functional disability at this time. MRI of the brain on 01/01/22 was nonacute but revealed mild frontal atrophy and some nonspecific findings such as white matter changes. TSH and vitamin B12 level on 03/25/23 were within normal limits. The patient's symptoms are potentially related to poor sleep, fibromyalgia, and/or a pseudodementia, as she has poorly controlled depression and anxiety. PLAN: - Repeat MRI of the brain for surveillance of white matter changes. To assess for stability versus progression. Re-ordered today. I advised the patient to notify our office if she is not contacted within 1 week to schedule the MRI. She verbalizes understanding - Sleep hygiene, healthy diet, and regular physical activity as tolerated - Neuropsychological evaluation and polysomnogram have been recommended but declined by the patient Weakness The patient continues to report vague, generalized weakness which seems to fluctuate. This has been ongoing for multiple years. I feel this is most likely related to fibromyalgia, as the patient also mentions chronic widespread musculoskeletal pain, paresthesias, fatigue, sleep difficulty, and cognitive/mood symptoms. However, I will evaluate for other possible causes. PLAN: - Laboratory evaluation (CMP, CK, myoglobin, JOSE, TSH, MuSK antibodies, and AChR antibodies) Seizures (CMS/HCC) The patient presented to [facility] emergency department (ED) on 01/07/22 following witnessed seizure activity. While in the ED, she had another seizure lasting approximately 30 seconds. No history of prior seizures. Positive family history of nonepileptic seizures. The patient admitted to abruptly stopping Klonopin and was also taking Wellbutrin at the time which lowers seizure threshold. Her seizures were likely provoked by these factors. MRI of the brain was nonacute, and EEG was normal during hospitalization. She denies any definitive seizures since December 2021. PLAN: - Continue Keppra 500 mg by mouth twice a day for seizure prevention for now. Consider discontinuation in the near future - I discussed the importance of medication compliance with the patient Syncope and collapse At her appointment in January 2023, the patient mentioned 2 syncopal episodes that occurred while standing with no prodromal symptoms. She has had no further episodes of loss of consciousness since that time. The patient was evaluated by Dr. Diaz in cardiology who noted no definite causes for patient's syncope from a cardiac perspective in July 2023. It is possible that the patient's syncope was related to orthostatic hypotension. Orthostatic hypotension Orthostatic vital signs were positive on 02/16/23. I believe hypovolemia due to dehydration was likely contributory. Medications may have also been contributory. Symptoms have improved with conservative measures. PLAN: - Adequate hydration - Change positions slowly Diagnosis and treatment options discussed in detail. All questions answered. The patient verbalizes understanding and is agreeable to the plan. Discussion in layman's terms. Follow up in the office within 1 month; sooner if needed for new or worsening symptoms. Alison Cage NP [facility] Advanced Neurology documented in this encounter [facility] 07-11-2024 Instructions Alison Cage NP - 07/11/2024 2:00 PM EDT - MRI of the brain - Laboratory evaluation documented in this encounter [facility] 06-28-2024 History of Presen t illness Narrative Associated Problem(s): Severe episode of recurrent major depressive disorder, without psychotic features (HCC) (CMS/HCC) Continue with dr laurent Associated Problem(s): Generalized anxiety disorder (CMS/HCC) Continue with dr laurent Associated Problem(s): Chronic migraine without aura without status migrainosus, not intractable (CMS/HCC) Is not consistently taking her qlipta Not a lot else to offer Associated Problem(s): Right hip impingement syndrome Waiting on new ortho Associated Problem(s): Fibromyalgia No changes in meds/doses at this time Has been suggested that she see neurology for this, she declines Associated Problem(s): Irritable bowel syndrome with constipation and diarrhea No med changes Associated Problem(s): Other generalized epilepsy and epileptic syndromes, not intractable, 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) Continue with neurology Pt has started on estrogen patches-changing tomorrow. Pt has been taking Pedialyte for dehydration Pt is on hold with insurance- change of insurance has made it hard for her to get her hip surgery. Pt has gone to her lgsw who did a menopause test on her- she did test for full menopause Pt has been having gut issues again- she has been nausea and watery stools Pt has early start of IBS Pt is asking if she may have parasites in her GI? Pt has been taking enzyme and probiotic. Pt states when she has a bowel movement she notices that some of her medication/vitamins are still whole Pt has fatigue Neurologist wants to do an MRI to see if she can get off of her cepra. Images from the original note were not included. Andrea Long is a 44 y.o. female presents with chief complaint of No chief complaint on file. HPI: Psych: anastasiia, trying to cut down her benzo, feels this really helps with her anxiety, cont on prozac, no spravato IBS-D: intermittent symptoms, is taking an OTC enzyme to help with bowel health Neurology: trying to perhaps get her off keppra, getting updated MRI Fibro: no new sxs, cont current meds, Hip: waiting to see a different ortho, needs hip scope done, new insurance [employer]: had hormone levels drawn, is in menopause, is starting hormone patch SUBJECTIVE: MEDICATIONS: Current Outpatient Medications Medication Instructions albuterol HFA 90 mcg/act inhaler 2 puffs, Inhalation, Every 6 hours PRN Biihxtk-Ihpulmpusps-Ofniospobb (Breztri Aerosphere) 160-9-4.8 MCG/ACT aerosol 2 puffs, Inhalation, 2 times daily, Rinse mouth after use clonazePAM (KLONOPIN) 0.5 mg, Oral, 2 times daily PRN estradiol (Climara) 0.05 MG/24HR 1 patch, Transdermal, Weekly levETIRAcetam (KEPPRA) 500 mg, Oral, Every 12 hours modafinil (PROVIGIL) 200 mg, Oral, Daily potassium citrate CR (Urocit-K-10) 10 mEq ER tablet 20 mEq, Oral, 2 times daily pregabalin (LYRICA) 200 mg, Oral, 2 times daily PROzac 40 mg, Oral, Every 24 hours Qulipta 60 mg, Oral, Daily SUMAtriptan (IMITREX) 100 mg, Oral, Once as needed, Take 100 mg by mouth 1 (one) time if needed for migraine, may repeat again in 2 hours if needed. No more than 2 pills in 24 hours, no more than twice in 1 week tiZANidine (ZANAFLEX) 4 mg, Oral, Nightly PRN ALLERGIES: Allergies Allergen Reactions Amitriptyline Didn't feel right, anxious, on edge Bee Pollen Bupropion History of seizure while was taking wellbutrin Reglan [Metoclopramide] Amoxicillin Rash Penicillins Rash REVIEW OF SYMPTOMS: Review of Systems Constitutional: Positive for fatigue and hot flashes. Negative for appetite change, chills and fever. HENT: Negative for congestion, ear pain and sore throat. Eyes: Negative for pain, discharge, redness and visual disturbance. Respiratory: Negative for cough, shortness of breath and wheezing. Cardiovascular: Negative for chest pain, palpitations and leg swelling. Gastrointestinal: Positive for diarrhea. Negative for abdominal pain, blood in stool, constipation, nausea and vomiting. Genitourinary: Negative for difficulty urinating, dysuria and frequency. Musculoskeletal: Positive for arthralgias and myalgias. Negative for back pain and joint swelling. Skin: Negative for rash and wound. Neurological: Positive for headaches. Negative for dizziness, tremors, seizures and syncope. Psychiatric/Behavioral: Negative for behavioral problems, self-injury and suicidal ideas. The patient is nervous/anxious. Depression Hematological: Does not bruise/bleed easily. Endocrine: Negative for polydipsia, polyphagia and polyuria. Allergic/Immunologic: Negative for environmental allergies and food allergies. PAST MEDICAL HISTORY Past Medical History: Diagnosis Date Anxiety Arthralgia 12/17/2023 Chest pain 12/17/2023 Chronic migraine without aura without status migrainosus, not intractable (CMS/HCC) 09/14/2023 COPD (chronic obstructive pulmonary disease) ([facility]) COVID-19 virus detected 12/17/2023 Depression (CMS/HCC) Dysphagia 12/17/2023 Family history of mitral valve prolapse Fatigue 12/17/2023 Fibromyalgia diagnosed by rheumatology at [facility] Headache Irritable bowel syndrome with constipation and diarrhea Kidney stone on right side Lumbar back pain 12/17/2023 Migraine (CMS/HCC) Migraine, chronic, without aura (CMS/HCC) Neuritis of right median nerve 12/17/2023 Other emphysema (CMS/HCC) 08/26/2023 PFT 08/26/23: FVC 87 FEV1 81 FVC/FEV1 75 COPD Ovarian cyst, left 12/17/2023 Panic disorder (CMS/HCC) Premenstrual tension syndrome Seizure disorder (CMS/HCC) Severe episode of recurrent major depressive disorder, without psychotic features ([facility]) (CMS/HCC) 06/13/2021 Temporomandibular joint disorders Urge incontinence 12/17/2023 Past Surgical History: Procedure Laterality Date APPENDECTOMY 08/1999 OTHER SURGICAL HISTORY 12/08/2017 PARTIAL HYSTERECTOMY family history includes Allergies in an other family member; Alzheimer's disease in an other family member; Cancer in an other family member; Depression in an other family member; Developmental delay in an other family member; Diabetes in her mother and another family member; Eczema in an other family member; Heart disease in her maternal grandfather and mother's sister; Hypertension in her mother; Irritable bowel syndrome in an other family member; Lupus in her maternal grandmother; Mental illness in her maternal grandmother and another family member; Migraines in an other family member; Stroke in an other family member. OBJECTIVE: Visit Vitals BP 128/86 (BP Location: Left arm, Patient Position: Sitting, BP Cuff Size: Adult long) Pulse 94 Temp 98.5 F (Temporal) Resp 18 Ht 5' 5 Wt 179 lb 6.4 oz SpO2 97% BMI 29.85 kg/m Smoking Status Former BSA 1.93 m Physical Exam Vitals and nursing note reviewed. Constitutional: General: She is not in acute distress. Appearance: Normal appearance. HENT: Head: Normocephalic and atraumatic. Right Ear: External ear normal. Left Ear: External ear normal. Nose: Nose normal. Mouth/Throat: Mouth: Mucous membranes are moist. Eyes: Extraocular Movements: Extraocular movements intact. Conjunctiva/sclera: Conjunctivae normal. Cardiovascular: Rate and Rhythm: Normal rate and regular rhythm. Pulses: Normal pulses. Heart sounds: Normal heart sounds. Pulmonary: Effort: Pulmonary effort is normal. Breath sounds: Normal breath sounds. Abdominal: General: Bowel sounds are normal. There is no distension. Palpations: Abdomen is soft. There is no mass. Tenderness: There is no abdominal tenderness. Musculoskeletal: General: Normal range of motion. Cervical back: Normal range of motion and neck supple. Skin: General: Skin is warm and dry. Capillary Refill: Capillary refill takes 2 to 3 seconds. Findings: No rash. Neurological: General: No focal deficit present. Mental Status: She is alert and oriented to person, place, and time. Psychiatric: Mood and Affect: Mood normal. Behavior: Behavior normal. Thought Content: Thought content normal. Judgment: Judgment normal. Comments: Flat affect, monotone ASSESSMENT AND PLAN: No follow-ups on file. Problem List Items Addressed This Visit Fibromyalgia No changes in meds/doses at this time Has been suggested that she see neurology for this, she declines Generalized anxiety disorder (CMS/HCC) Continue with dr laurent Severe episode of recurrent major depressive disorder, without psychotic features (HCC) (CMS/HCC) Continue with dr laurent Chronic migraine without aura without status migrainosus, not intractable (CMS/HCC) Is not consistently taking her qlipta Not a lot else to offer Other generalized epilepsy and epileptic syndromes, not intractable, 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) - Primary Continue with neurology Irritable bowel syndrome with constipation and diarrhea No med changes Right hip impingement syndrome Waiting on new ortho documented in this encounter [facility] 09-29-2023 Evaluation note Encounter Date Diagnosis Assessment [...] fever/discomfort , cool mist humidifier. May use Louisa as needed for cough, do not take any other OTCs while using Louisa. Patient to follow up with PCP in 2-3 days symptoms do not improve. Immediate eval if SOB, difficulty breathing, chest pain, dizziness, or other concerning symptoms. Patient verbalizes understanding and is agreeable to treatment plan. [facility] Other 10-09-2023 Hospital Discharge instructions Follow Up Care 07/06/2023 14:23:44 With:PAWAN HAWLEY, Roney Kumar, AZAM Address: [facility] [address], [place] [address] [phone] When: Unknown [facility] Óscar 08-04-2023 Hospital Discharge instructions* Discharge Instructions* Ericka Mackenzie PA-C - 05/01/2023 2:50 PM EDT Please follow up with PCP. Recommend benadryl for itching. Return to the ED if you develop worsening rash, throat swelling, shortness of breath, fevers, eye redness, eye pain, vision changes. * Attachments The following attachments cannot be sent through Care Everywhere. * Poison Loli - [place] - and [place] (Amharic) [facility] Discharge instructions Patient Education 12/22/2022 08:33:41 [...] include: ?Spinach. ?Rhubarb. ?Beets. ?Potato chips and greek fries. ?Nuts. If you regularly take a diuretic medicine, make sure to eat at least 1 2 fruits or vegetables high in potassium each day. These include: ?Avocado. ?Banana. ?Rangeley, prune, carrot, or tomato juice. ?Baked potato. [...] Casseroles. Pizza. Lasagna. Frozen meals. Potato chips. Haitian fries. Summary You can reduce your risk [...] 01/09/2012 Document Revised: 01/04/2020 Document Reviewed: 08/25/2017 [employer] Patient Education 2019 [employer]. Follow Up Care 09/01/2022 13:32:46 With:PAWAN HAWLEY, AZAM Mckeon Address: [facility] [address], [place] [address]- When: Unknown [facility] Óscar 12-05-2022 Hospital Discharge instructions Patient Education 09/01/2022 [...] include: ?Spinach. ?Rhubarb. ?Beets. ?Potato chips and greek fries. ?Nuts. If you regularly take a diuretic medicine, make sure to eat at least 1 2 fruits or vegetables high in potassium each day. These include: ?Avocado. ?Banana. ?Rangeley, prune, carrot, or tomato juice. ?Baked potato. [...] Casseroles. Pizza. Lasagna. Frozen meals. Potato chips. Haitian fries. Summary You can reduce your risk [...] 01/09/2012 Document Revised: 01/04/2020 Document Reviewed: 08/25/2017 [employer] Patient Education 2020 [employer]. Follow Up Care 07/31/2022 10:50:53 With:PAWAN HAWLEY, Roney Kumar, URL Address: [facility] [address] , [place] [address]- When: Unknown [facility] 10-21-2022 Evaluation note* Encounter Date Diagnosis Assessment Notes Treatment Notes Treatment Clinical Notes Jun, Thrush (ICD-10 - B37.0) Thrush home care material was printed Drink plenty fluids, get plenty of rest. Continue home medications as prescribed. Use the nystatin suspension as prescribed. Follow-up with your family physician if no improvement in 2 to 3 days. Jun, Sore throat (ICD-10 - J02.9) [facility] [email or web address]-DENTIST Other chief complaint Narrative - ReportedANDREA LONG is being seen for a consultation for syncope, orthostatic hypotension.-[facility] [address] DO Work Phone: Evaluation + Plan note Future Appointments Appointment Date:12/22/2022 01:15:00 PM Scheduled Provider:Roney VILLALTA MD Location:[facility] Appointment Type:URO Office Visit [facility] S B E evaluation + Plan note Future Appointments Appointment Date:07/06/2023 12:45:00 PM Scheduled Provider:Roney VILLALTA MD Location:[facility] Appointment Type:URO Office [facility] [facility] [place] E evaluation noteNo assessment information available [facility] Work Phone: [email or web address] note* Diagnosis Postcoital bleeding documented in this encounter [employer] Phone: [email or web address] note* Diagnosis Dysuria Pelvic pain documented in this encounter [employer] Phone: [email or web address] note* Diagnosis Hot flashes Symptomatic menopausal or female climacteric states documented in this encounter [employer] Phone: [email or web address] note* Diagnosis Poison loli- Primary Contact dermatitis and other eczema due to plants (except food) documented in this encounter [facility] note* Diagnosis Menopausal symptoms Symptomatic menopausal or female climacteric states Vaginal discomfort Unspecified symptom associated with female genital organs [facility] Diagnosis Fibromyalgia- Primary Unspecified myalgia and myositis Other generalized epilepsy and epileptic syndromes, not intractable, 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) Irritable bowel syndrome with constipation and diarrhea Right hip impingement syndrome Chronic migraine without aura without status migrainosus, not intractable (CMS/HCC) Generalized anxiety disorder (CMS/HCC) Generalized anxiety disorder Severe episode of recurrent major depressive disorder, without psychotic features (HCC) (CMS/HCC) documented in this encounter [facility] HealthcareEvaluation [facility]* Diagnosis Nausea- Primary Nausea alone documented in this encounter [facility]* Diagnosis Fibromyalgia Unspecified myalgia and myositis documented in this encounter [facility] HealthcareEvaluation note* Diagnosis Other emphysema (CMS/HCC)- Primary Other emphysema Fibromyalgia Unspecified myalgia and myositis Chronic migraine without aura without status migrainosus, not intractable (CMS/HCC) Chronic obstructive pulmonary disease, unspecified COPD type (CMS/HCC) Fibromyalgia- Primary Unspecified myalgia and myositis Other emphysema (CMS/HCC) Other emphysema Chronic obstructive pulmonary disease, unspecified COPD type (CMS/HCC) Generalized anxiety disorder (CMS/HCC)- Primary Generalized anxiety disorder Chronic migraine without aura without status migrainosus, not intractable (CMS/HCC) Fibromyalgia Unspecified myalgia and myositis Obesity (BMI 30-39.9) Abnormal weight gain- Primary Obesity (BMI 30-39.9) Severe episode of recurrent major depressive disorder, without psychotic features (HCC) (CMS/HCC) Panic disorder (CMS/HCC) Panic disorder without agoraphobia Right hip impingement syndrome Urticaria- Primary Unspecified urticaria Other generalized epilepsy and epileptic syndromes, not intractable, 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) Obesity (BMI 30-39.9) Abnormal weight gain Chronic migraine without aura without status migrainosus, not intractable (CMS/HCC)- Primary Obesity (BMI 30-39.9) Chronic right hip pain Fibromyalgia Unspecified myalgia and myositis Generalized skin lesions Fibromyalgia- Primary Unspecified myalgia and myositis Other generalized epilepsy and epileptic syndromes, not intractable, 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) Irritable bowel syndrome with constipation and diarrhea Right hip impingement syndrome Chronic migraine without aura without status migrainosus, not intractable (CMS/HCC) Generalized anxiety disorder (CMS/HCC) Generalized anxiety disorder Severe episode of recurrent major depressive disorder, without psychotic features (HCC) (CMS/HCC) Migraine without aura and without status migrainosus, not intractable (CMS/HCC)- Primary Anxiety and depression (CMS/HCC) Paresthesia Disturbance of skin sensation Fibromyalgia Unspecified myalgia and myositis Memory difficulty Memory loss Abnormal brain MRI Nonspecific (abnormal) findings on radiological and other examination of skull and head Weakness Other malaise and fatigue Seizures (CMS/HCC) Other convulsions Syncope and collapse Orthostatic hypotension documented in this encounter [facility] HealthcareEvaluation note* Diagnosis Other emphysema (CMS/HCC)- Primary Other emphysema Fibromyalgia Unspecified myalgia and myositis Chronic migraine without aura without status migrainosus, not intractable (CMS/HCC) Chronic obstructive pulmonary disease, unspecified COPD type (CMS/HCC) Fibromyalgia- Primary Unspecified myalgia and myositis Other emphysema (CMS/HCC) Other emphysema Chronic obstructive pulmonary disease, unspecified COPD type (CMS/HCC) Generalized anxiety disorder (CMS/HCC)- Primary Generalized anxiety disorder Chronic migraine without aura without status migrainosus, not intractable (CMS/HCC) Fibromyalgia Unspecified myalgia and myositis Obesity (BMI 30-39.9) Abnormal weight gain- Primary Obesity (BMI 30-39.9) Severe episode of recurrent major depressive disorder, without psychotic features (HCC) (CMS/HCC) Panic disorder (CMS/HCC) Panic disorder without agoraphobia Right hip impingement syndrome Urticaria- Primary Unspecified urticaria Other generalized epilepsy and epileptic syndromes, not intractable, 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) Obesity (BMI 30-39.9) Abnormal weight gain Chronic migraine without aura without status migrainosus, not intractable (CMS/HCC)- Primary Obesity (BMI 30-39.9) Chronic right hip pain Fibromyalgia Unspecified myalgia and myositis Generalized skin lesions Fibromyalgia- Primary Unspecified myalgia and myositis Other generalized epilepsy and epileptic syndromes, not intractable, 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) Irritable bowel syndrome with constipation and diarrhea Right hip impingement syndrome Chronic migraine without aura without status migrainosus, not intractable (CMS/HCC) Generalized anxiety disorder (CMS/HCC) Generalized anxiety disorder Severe episode of recurrent major depressive disorder, without psychotic features (HCC) (CMS/HCC) Fibromyalgia Unspecified myalgia and myositis documented in this encounter [facility] HealthcareEvaluation note* Diagnosis Other emphysema (CMS/HCC)- Primary Other emphysema Fibromyalgia Unspecified myalgia and myositis Chronic migraine without aura without status migrainosus, not intractable (CMS/HCC) Chronic obstructive pulmonary disease, unspecified COPD type (CMS/HCC) Fibromyalgia- Primary Unspecified myalgia and myositis Other emphysema (CMS/HCC) Other emphysema Chronic obstructive pulmonary disease, unspecified COPD type (CMS/HCC) Generalized anxiety disorder (CMS/HCC)- Primary Generalized anxiety disorder Chronic migraine without aura without status migrainosus, not intractable (CMS/HCC) Fibromyalgia Unspecified myalgia and myositis Obesity (BMI 30-39.9) Abnormal weight gain- Primary Obesity (BMI 30-39.9) Severe episode of recurrent major depressive disorder, without psychotic features (HCC) (CMS/HCC) Panic disorder (CMS/HCC) Panic disorder without agoraphobia Right hip impingement syndrome Urticaria- Primary Unspecified urticaria Other generalized epilepsy and epileptic syndromes, not intractable, 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) Obesity (BMI 30-39.9) Abnormal weight gain Chronic migraine without aura without status migrainosus, not intractable (CMS/HCC)- Primary Obesity (BMI 30-39.9) Chronic right hip pain Fibromyalgia Unspecified myalgia and myositis Generalized skin lesions Fibromyalgia- Primary Unspecified myalgia and myositis Other generalized epilepsy and epileptic syndromes, not intractable, 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) Irritable bowel syndrome with constipation and diarrhea Right hip impingement syndrome Chronic migraine without aura without status migrainosus, not intractable (CMS/HCC) Generalized anxiety disorder (CMS/HCC) Generalized anxiety disorder Severe episode of recurrent major depressive disorder, without psychotic features (HCC) (CMS/HCC) Chronic migraine without aura without status migrainosus, not intractable (CMS/HCC) documented in this encounter [facility] Narrative - Reported* Type Description Date Medical History migraine headache Medical History depression Medical History anxiety Surgical History appendectomy Surgical History partial hysterectomy Hospitalization History see above Simpler Other Hospital course Narrative No data available for this section [facility] InstructionsNot on filedocumented in this encounter [facility] No data available for this section [facility] [place] [facility] Assessments Diagnosis Screening for cervical cancer Screening [...] unspecified Diagnosis Fatigue, unspecified type Advance Directives Documents on File Type Date Recorded Patient C4 Planner Expl anation ACP-Advance Directive ACP-Power of Heat Treat Operator Documents on File Type Date Recorded Patient C4 Planner Expl anation ACP-Advance Directive ACP-Power of Heat Treat Operator Latest Code Status on File Code Status [...] APRN - CNM [address] [place] [address] Status Reason Specialty Diagnoses / Procedures Referre d By Contact Referred To Contact Open Radiology Diagnoses Abnormal mammogram Procedures US BREAST COMPLETE RIGHT Frank Diaz APRN - CNM [address] [place] [address] [facility] Ultrasound [address] [place] [address] Summary Purpose Family History Unknown Family Member Name Dates Details Heart [...] OB TRANSVAGINAL Frank Diaz APRN - CNM [address] [place] [address] [address] [place] [id number] Status Reason Specialty Diagnoses / Procedures Referred By Contact Referred To Contact Pending Review Radiology Diagnoses Screening mammogram, encounter for Procedures SHAYLEE ANTONIO DIGITAL SCREEN BILATERAL SHAYLEE DIGITAL SCREEN W OR WO CAD BILATERAL Frank Diaz APRN - CNM [address] [place] [id number] [facility] [address] [place] [address] Status Reason Specialty Diagnoses / Procedures Referre d By Contact Referred To Contact Open Radiology Diagnoses Abnormal mammogram Procedures US BREAST COMPLETE RIGHT Frank Diaz APRN - CNM [address] [place] [address] [address] [place] [id number] [facility] Ultrasound [address] [place] [address] Status Reason Specialty Diagnoses / Procedures Referre d By Contact Referred To Contact Closed Radiology Diagnoses Abnormal mammogram Procedures SHAYLEE ANTONIO DIGITAL DIAGNOSTIC UNILATERAL RIGHT SHAYLEE DIAGNOSTIC W CAD RIGHT Joe Frank Liss, RUBBISH COLLECTOR - CNM [address] [place] [address] [facility] [address] [place] [address] Reason Comments Rash Reason Comments Med Refill Reason Comments Follow-up INFORMATION SOURCE (unrecogn ized section and content) DATE CREATED AUTHOR 04/22/2021 [facility] DATE CREATED AUTHOR AUTHOR'S ORGANIZ ATION 02/11/2023 [facility] DATE CREATED AUTHOR AUTHOR'S ORGANIZ ATION 04/24/2023 [employer] DATE CREATED AUTHOR AUTHOR'S ORGANIZ ATION 05/21/2023 [facility] DATE CREATED AUTHOR AUTHOR'S ORGANIZ ATION 07/04/2023 [facility] DATE CREATED AUTHOR AUTHOR'S ORGANIZ ATION 07/05/2023 [facility] DATE CREATED AUTHOR AUTHOR'S ORGANIZ ATION 08/01/2023 [facility] DATE CREATED AUTHOR AUTHOR'S ORGANIZ ATION 11/18/2023 [facility] DATE CREATED AUTHOR AUTHOR'S ORGANIZ ATION 06/24/2024 [facility] DATE CREATED AUTHOR AUTHOR'S ORGANIZ ATION 07/13/2024 [facility] DATE CREATED AUTHOR AUTHOR'S ORGANIZ ATION 07/28/2024 [facility] DATE CREATED AUTHOR AUTHOR'S ORGANIZ ATION 08/07/[address] [facility] Care Teams (unrecognized sec tion and content) Team Status: Inactive Member Role Status Dates Fernando Ragsdale DO Attending Provider Active NON STAFF Primary Care Provider Active Team Status: Active Member Role Status Dates NON STAFF Primary Care Provider Active [employer] Relationship Specialty Start Date End Date Caitlin Finch [address] [place] [address] PCP - General Nurse Practitioner 07/09/20 [employer] Relationship Specialty Start Date End Date Caitlin Finch [address] [place] [address] PCP - General Nurse Practitioner 07/09/20 [employer] Relationship Specialty Start Date End Date Caitlin Finch [address] [place] [address] PCP - General Nurse Practitioner 07/09/20 [employer] Relationship Specialty Start Date End Date Caitlin Finch [address] [place] [address] PCP - General Nurse Practitioner 07/09/20 [employer] Relationship Specialty Start Date End Date Caitlin Finch [address] [place] [address] PCP - General Nurse Practitioner 07/09/20 [employer] Relationship Specialty Start Date End Date Ugo Ramsay MD [address] [place] [address] PCP - General Family Medicine 04/08/23 Caitlin Finch NP [address] [place] [address] Referring Physician Nurse Practitioner 04/06/23 [employer] Relationship Specialty Start Date End Date Caitlin Finch, RUBBISH COLLECTOR-HAND II CUTTER [address] [place] [address] PCP - General Nurse Practitioner 12/22/22 [employer] Relationship Specialty Start Date End Date Ugo Ramsay MD [address] [place] [address] PCP - General Family Medicine 01/05/24 Caitlin Finch NP [address] [place] [address] PCP - [facility] 03/28/24 03/27/98 Caitlin Finch NP [address] [place] [address] Nurse Practitioner Family Medicine 01/05/24 [employer] Relationship Specialty Start Date End Date Ugo Ramsay MD [address] [place] [address] PCP - General Family Medicine 01/05/24 Caitlin Finch NP [address] [place] [address] [facility] 03/28/24 03/27/98 Caitlin Finch NP [address] [place] [address] Nurse Practitioner Family Medicine 01/05/24 [employer] Relationship Specialty Start Date End Date Ugo Ramsay MD [address] [place] [address] PCP - General Family Medicine 01/05/24 Caitlin Finch NP [address] [place] [address] PCP [facility] 03/28/24 03/27/98 Caitlin Finch NP [address] [place] [address] Nurse Practitioner Family Medicine 01/05/24 [employer]le [employer] D[employer] Relationship Specialty Start Date End Date Ugo Ramsay MD [address] [place] [address] PCP - General Family Medicine 01/05/24 Caitlin Finch NP [address] [place] [address] PCP - [facility] 03/28/24 03/27/98 Caitlin Finch NP [address] [place] [address] Nurse Practitioner Family Medicine 01/05/24 [employer]le [employer] Relationship Specialty Start Date End Date Ugo Ramsay MD [address] [place] [address] PCP - General Family Medicine 01/05/24 Caitlin Finch NP [address] [place] [address] [facility] 03/28/24 03/27/98 Caitlin Finch NP [address] [place] [address] Nurse Practitioner Family Medicine 01/05/24 [employer]le And Dolly Relationship Specialty Start Date End Date Ugo Ramsay MD [address] [place] [address] PCP - General Family Medicine 01/05/24 Caitlin Finch NP [address] [place] [address] [facility] 03/28/24 03/27/98 Caitlin Finch NP [address] [place] [address] Nurse Practitioner Family Medicine 01/05/24 [employer] Relationship Specialty Start Date End Date Ugo Ramsay MD [address] [place] [address] PCP - General Family Medicine 01/05/24 Caitlin Finch NP [address] [place] [address] [facility] 03/28/24 03/27/98 Caitlin Finch NP [address] [place] [phone] Nurse Practitioner Family Medicine 01/05/24 Goals (unrecognized section and content) Goals may be documented in a n alternate sectionNo Information No data available for this section No data available for this sectionNo Information No data available for this section Ordered [...] BE BASED ON THE PRIMARY CLINICAL RECORDS. [employer] [facility]. provides no warranty or guarantee of the accuracy or completeness of information in this document.
== END 2024-08-17 13:50 | disposition home or self-care (01) ==
LOC: RAD 13:51
PROVIDERS: PCP Nurse Practitioner; Visit Provider Urology
DX: N20.0 Calculus of kidney (principal)
CPT/HCPCS: 74018

== ENCOUNTER 2024-08-17 13:53 | Outpatient (OUT) | payer MEDICARE, SELFPAY ==
--- NOTE | 2024-08-17 14:17 | MR_ITS ---
The [address] [address] Patient Name: ANDREA CORNELIUS MRN: [id number] date: 1980 Sex: F Assigned Patient Location: MRI Current Patient Location: [facility] Accession/Order Number: [id number] Exam Date: 08/17/2024 14:25 Report Date: 08/17/2024 22:18 At the request of: NATTY GEE Procedure: MR head/brain wo/w con EXAM: MR head/brain wo/w con HISTORY: Memory Difficulty, Abnormal Brain MRI COMPARISON: CT brain 11/30/2017. TECHNIQUE: Multisequence MRI brain was performed with and without intravenous contrast. FINDINGS: There is no restricted diffusion to suggest acute infarct. There is no midline shift, mass effect, or abnormal extraaxial fluid collections. There are no abnormal parenchymal or leptomeningeal enhancement. There is moderate bifrontal atrophy. There are a few nonspecific scattered foci of T2/FLAIR signal abnormality are identified in the bilateral frontal white matter. The major intracranial flow voids are visualized. The cerebellar tonsils are normal in position. The orbits demonstrate no suspicious enhancement or any focal lesions. The paranasal sinuses show no air-fluid level. The mastoid air cells are clear. The calvarium and extracranial soft tissues are unremarkable. MR/MR head/brain wo/w con IMPRESSION: No acute intracranial abnormality or abnormal intracranial enhancement. Nonspecific T2/FLAIR bright foci in the bifrontal white matter. Differential considerations include chronic ischemia associated with migraine/atherosclerosis, prior trauma, demyelination, vasculitis or Lyme disease for this age. Recommend clinical correlation. Moderate frontal atrophy. Electronically authenticated by: VANESSA CISNEROS Date: 08/17/2024 22:18
[2024-08-17 16:22] LABS: Alanine Aminotransferase 27 U/L (14-59); Albumin Level 3.6 g/dL (3.4-5.0); Alkaline Phosphatase 103 U/L (46-116); Anion Gap 13.8; Aspartate Amino Transferase 28 U/L (15-37); BUN Creatinine Ratio 19.1; Bilirubin Total 0.3 mg/dL (0.2-1.0); Carbon Dioxide 27.4 mmol/L (21.0-32.0); Chloride 103 mmol/L (98-107); Creatine Kinase 128 U/L (26-192); Estimated GFR (African America >60 (>=60 mL/min/1.73m^2); Estimated GFR (Non-African Ame 53 (>=60 mL/min/1.73m^2); Globulin 3.5 g/dL; Glucose 88 mg/dL (74-106); Myoglobin 63 ng/mL (9-82); Potassium 5.2 mmol/L (3.5-5.1); Sodium 139 mmol/L (136-145); Thyroid Stimulating Hormone 1.322 uIU/mL (0.358-3.740); Total Protein 7.1 g/dL (6.4-8.2)
[2024-08-22 08:08] LABS: Antinuclear Antibodies, IFA Negative (.)
== END 2024-08-17 13:54 | disposition home or self-care (01) ==
LOC: MRI 13:55
PROVIDERS: PCP Nurse Practitioner; Visit Provider Nurse Practitioner Family
DX: N20.0 Calculus of kidney (principal); R41.3 Other amnesia; R90.89 Other abnormal findings on diagnostic imaging of central nervous system; R53.1 Weakness
CPT/HCPCS: 36415; 70553; 74018; 80053; 82550; 83874; 84443; 86038; A9575

== ENCOUNTER 2024-11-28 12:12 | Outpatient (OUT) | payer OTHER, SELFPAY ==
--- NOTE | 2024-11-28 12:21 | MR_ITS ---
The [address] [address] Patient Name: ANDREA CORNELIUS MRN: [id number] date: 1980 Sex: F Assigned Patient Location: MRI Current Patient Location: MRI Accession/Order Number: [id number] Exam Date: 11/28/2024 23:15 Report Date: 11/28/2024 23:32 At the request of: NATTY GEE NP Procedure: MR thoracic spine wo/w con CLINICAL DATA: Weakness, paresthesias and memory issues. Abnormal MRI brain with white matter lesions MRI CERVICAL SPINE WITHOUT AND WITH INTRAVENOUS CONTRAST COMPARISON: None Multiecho imaging in the axial and sagittal plane was performed before and after intravenous administration of 17 mL of Dotarem. Alignment is maintained in the sagittal sequences. There are no acute compression fractures or marrow edema. A normal cervicomedullary junction is seen. The cervical cord is within normal limits for caliber. There is some artifact on the sagittal sequences however no definite cord lesions or abnormal enhancement are noted. No paraspinal soft tissue abnormalities are identified. The cervical discs are within normal limits for height and signal intensity. A tiny central protrusion is visualized at C5-6 with mild associated thecal sac effacement. The neuroforamen are patent. At the remaining levels, no additional disc bulge or herniation is seen. No central or foraminal stenosis is identified. MR/MR thoracic spine wo/w con IMPRESSION: MINOR DEGENERATIVE CHANGES C5-6. . NO OTHER SIGNIFICANT MRI FINDINGS INVOLVING THE CERVICAL SPINE AND CORD MRI THORACIC SPINE WITHOUT AND WITH INTRAVENOUS CONTRAST COMPARISON: None Multiecho imaging in the axial and sagittal plane was performed before and after intravenous administration of 17 mL of Dotarem. There is no displacement on the sagittal sequences. There are no acute compression fractures or marrow edema. There are hemangiomas, largest at T8. The thoracic discs are within normal limits for height and signal intensity. No disc bulge or herniation is identified. No central or foraminal stenosis is seen. The thoracic cord, as visualized is normal in caliber and signal. There are no cord lesions were abnormal enhancement. No paraspinal soft tissue abnormalities are identified. Incidental note is made of a hepatic cysts. IMPRESSION: NO SIGNIFICANT MRI FINDINGS INVOLVING THE THORACIC SPINE OR CORD. Impression dictated by: Cecilia Melendez M.D.11/28/2024 11:32 PM Dictation Location: [place] [address] Electronically authenticated by: [id number] Y Date: 11/28/2024 23:32
--- NOTE | 2024-11-28 12:22 | MR_ITS ---
The [address] [address] Patient Name: ANDREA CORNELIUS MRN: [id number] date: 1980 Sex: F Assigned Patient Location: MRI Current Patient Location: MRI Accession/Order Number: [id number] Exam Date: 11/28/2024 23:15 Report Date: 11/28/2024 23:32 At the request of: NATTY GEE NP Procedure: MR thoracic spine wo/w con CLINICAL DATA: Weakness, paresthesias and memory issues. Abnormal MRI brain with white matter lesions MRI CERVICAL SPINE WITHOUT AND WITH INTRAVENOUS CONTRAST COMPARISON: None Multiecho imaging in the axial and sagittal plane was performed before and after intravenous administration of 17 mL of Dotarem. Alignment is maintained in the sagittal sequences. There are no acute compression fractures or marrow edema. A normal cervicomedullary junction is seen. The cervical cord is within normal limits for caliber. There is some artifact on the sagittal sequences however no definite cord lesions or abnormal enhancement are noted. No paraspinal soft tissue abnormalities are identified. The cervical discs are within normal limits for height and signal intensity. A tiny central protrusion is visualized at C5-6 with mild associated thecal sac effacement. The neuroforamen are patent. At the remaining levels, no additional disc bulge or herniation is seen. No central or foraminal stenosis is identified. MR/MR cervical spine wo/w con IMPRESSION: MINOR DEGENERATIVE CHANGES C5-6. . NO OTHER SIGNIFICANT MRI FINDINGS INVOLVING THE CERVICAL SPINE AND CORD MRI THORACIC SPINE WITHOUT AND WITH INTRAVENOUS CONTRAST COMPARISON: None Multiecho imaging in the axial and sagittal plane was performed before and after intravenous administration of 17 mL of Dotarem. There is no displacement on the sagittal sequences. There are no acute compression fractures or marrow edema. There are hemangiomas, largest at T8. The thoracic discs are within normal limits for height and signal intensity. No disc bulge or herniation is identified. No central or foraminal stenosis is seen. The thoracic cord, as visualized is normal in caliber and signal. There are no cord lesions were abnormal enhancement. No paraspinal soft tissue abnormalities are identified. Incidental note is made of a hepatic cysts. IMPRESSION: NO SIGNIFICANT MRI FINDINGS INVOLVING THE THORACIC SPINE OR CORD. Impression dictated by: Cecilia Melendez M.D.11/28/2024 11:32 PM Dictation Location: [place] [address] Electronically authenticated by: [id number] Y Date: 11/28/2024 23:32
--- OUTSIDE RECORDS SUMMARY | 2024-11-28 12:25 | XMS_ITS | CCD ---
Author Organization [facility] Care Team Providers Care Slubber Frame Changer Name Role Phone Unavailable Primary Care Provider UnavailCaitlin Choi Primary Care Provider DO Fernando Ragsdale Attending Provider NON STAFF Primary Care Provider UnavailCaitlin Choi Primary Care Provider [phone] Jaelyn Bright Unavailable CAITLIN FINCH Primary Care Physician Caitlin Finch Primary Care Provider AICHHOLZ, CONSERVATION POLICY ANALYST CAITLIN Primary Care Unavailable BENEDICT WONG Admitting Unavailable BENEDICT WONG Attending Unavailable BENEDICT WONG Consulting Unavailable REGAN ., DR JAFFE Admitting Unavailable AICHHOLZ, CONSERVATION POLICY ANALYST CAITLIN Primary Care Unavailable REGAN ., DR JAFFE Attending Unavailable CARMITA, DR NOAH Kumar Consulting Unavailable REGAN .DR JAFFE Consulting Unavailable KIRILL Laboy, DR WILSON Consulting Unavailable JANA MARTIN Consulting Unavailable AICHHOLZ, CONSERVATION POLICY ANALYST CAITLIN Consulting Unavailable AICHHOLZ, CONSERVATION POLICY ANALYST CAITLIN Primary Care Unavailable AICHHOLZ, CONSERVATION POLICY ANALYST CAITLIN Admitting Unavailable AICHHOLZ, CONSERVATION POLICY ANALYST CAITLIN Attending Unavailable DR CHIDI MORALES Consulting Unavailable AICHHOLZ, CONSERVATION POLICY ANALYST CAITLIN Consulting Unavailable AICHHOLZ, CONSERVATION POLICY ANALYST CAITLIN Primary Care Unavailable AICHHOLZ, CONSERVATION POLICY ANALYST CAITLIN Admitting Unavailable AICHHOLZ, CONSERVATION POLICY ANALYST CAITLIN Attending Unavailable PAWAN ., DR SIM Admitting Unavailable AICHHOLZ, CONSERVATION POLICY ANALYST CAITLIN Primary Care Unavailable PAWAN ., DR SIM Attending Unavailable PAWAN ., DR SIM Consulting Unavailable AICHHOLZ, CONSERVATION POLICY ANALYST CAITLIN Primary Care Unavailable AICHHOLZ, CONSERVATION POLICY ANALYST CAITLIN Admitting Unavailable AICHHOLZ, CONSERVATION POLICY ANALYST CAITLIN Attending Unavailable ANDREW, DR CHIDI Kumar Consulting Unavailable KIRILL ., DR WILSON Admitting Unavailable AICHHOLZ, CONSERVATION POLICY ANALYST CAITLIN Primary Care Unavailable KIRILL Laboy, DR WILSON Attending Unavailable KIRILL ., DR WILSON Consulting Unavailable Aiczahida, Caitlin Gemini Unavailable Unavailable Unavailable Larissa Fincha J. Primary Care Provider Calos Watkinsf Referring Unavailable Aichminerva, Caitlin J Primary Care Unavailable Diaz, Shaneka Attending Unavailable Diaz, Shaneka Admitting Unavailable Diaz, Shaneka Attending Unavailable Diaz, Shaneka Referring Unavailable Aichholz, Mrs. Caitlin Gemini Primary Care Unavailab le Diaz, Shaneka Attending Unavailable Diaz, Shaneka Referring Unavailable Aichholz, Mrs. Caitlin Gemini Primary Care Unavailab le Calos Watkinsf Attending Unavailable Aichholz, . Caitlin Gemini Primary Care Unavailab le Diaz, Shaneka Attending Unavailable Diaz, Shaneka Referring Unavailable Aichholz, . Caitlin Gemini Primary Care Unavailab le Aichholz, Mrs. Caitlin Gemini Primary Care Unavailab le Diaz, Shaneka Attending Unavailable Aichholz, Mrs. Caitlin Gemini Primary Care Unavailab le Diaz, Shaneka Attending Unavailable DIAZ, SHANEKA Attending Unavailable AICHHOLZ, CAITLIN GEMINI Primary Care Unavailable Ramona Jimenez Unavailable Caitlin Finch Primary Care Provider Stef SUPERINTENDENT CAR CONSTRUCTION, Caitlin Unavailable Ugo Ramsay MD Primary Care [...] Primary Care Unavailable PATRICIA CORDERO Referring Unavailable AICHHOLZ, CAITLIN J. Primary Care Unavailable PARINJA, KEYLA Referring Unavailable AICHHOLZ, CAITLIN J. Primary Care Unavailable PARINJA, KEYLA Referring Unavailable NOEMI GODINEZ Attending Juan Pablo willamsable AICHHOLZ, CAITLIN J. Primary Care Unavailable AICHHOLZ, CAITLIN J. Primary Care Unavailable PARINJA, KEYLA Referring Unavailable AICHHOLZ, CAITLIN J. Primary Care Unavailable PARINJA, KEYLA Referring Unavailable AICHHOLZ, CAITLIN J. Primary Care Unavailable FRANK DIAZ Referring Unavailabl e DIAZ, FRANK BILLINGSLEY Referring Unavailabl e AICHHOLZ, CAITLIN J. Primary Care Unavailable FRANK DIAZ Attending Unavailabl e CARMITA, FRANK BILLINGSLEY Referring Unavailabl e AICHHOLZ, CAITLIN J. Primary Care Unavailable Ugo Ramsay MD Primary Care Provider Aichholz SUPERINTENDENT CAR CONSTRUCTION, Caitlin Unavailable Aichholz SUPERINTENDENT CAR CONSTRUCTION, Caitlin Unavailable AICHHOLZ, CAITLIN J Referring Unavailable AICHHOLZ, CAITLIN J Primary Care Unavailable WADE LAURENT Attending Unavailable AICHHOLZ, CAITLIN J Referring Unavailable AICHHOLZ, CAITLIN J Primary Care Unavailable WADE LAURENT Attending Unavailable AICHHOLZ, CAITLIN J Referring Unavailable AICHHOLZ, CAITLIN J Primary Care Unavailable WADE LAURENT Attending Unavailable AICHHOLZ, CAITLIN J Referring Unavailable AICHHOLZ, CAITLIN J Primary Care Unavailable ANASTASIIAWADE VANN Attending Unavailable AICHHOLZ, CAITLIN J Referring Unavailable AICHHOLZ, CAITLIN J Primary Care Unavailable WADE LAURENT Attending Unavailable AICHHOLZ, CAITLIN J Referring Unavailable AICHHOLZ, CAITLIN J Primary Care Unavailable WADE LAURENT Attending Unavailable ALISON CAGE Attending Unavailable JANNETHZ, CAITLIN Attending Unavailable LUKAS BOURNE Attending Unavailable LUKAS BOURNE Referring Unavailable AICODALYSZ, CAITLIN Attending Unavailable SHARA ELKINS Attending Unavailable LUKAS BOURNE Referring Unavailable EDGAR BOURNEEW J Attending Unavailable PAUL HENDRIX Attending Unavailable SHAKILA, LUKAS Mcginnis Referring Unavailable STEF, CAITLIN Attending Unavailable SHARA ELKINS Attending Unavailable LUKAS BOURNE Referring Unavailable SHAKILA, LUKAS Mcginnis Attending Unavailable CAGE, ALISON Attending Unavailable AICHHOLZ, CAITLIN Attending Unavailable AICHHOLZ, CAITLIN Attending Unavailable SHAKILA, LUKAS Mcginnis Attending Unavailable AICHHOLZ, CAITLIN Attending Unavailable CAGE, ALISON Attending Unavailable CAGE, ALISON Attending Unavailable AICHHOLZ, CAITLIN Attending Unavailable Ugo Ramsay MD Unavailable Roney VILLALTA Attending Unavailable RAFAL COLIN Attending Unavailable RAFAL COLIN Attending Unavailable RAFAL COLIN Attending Unavailable RAFAL COLIN Attending Unavailable Allergies Allergy Classification Reported Allergen(s) Allergy Type Date of Onset Reaction(s) Facility (9 sources) bee pollen Propensity to adverse reactions to drug 05-27-20 17 [place] (20 sources) Metoclopramide; Translations: [metoclopramide] Drug Allergy 05-27-20 17 Feeling agitated (finding) [place] (11 sources) Penicillins; Translations: [PENICILLINS] Propensity to adverse reactions to drug 05-27-20 17 [place] (20 sources) Amitriptyline; Translations: [AMITRIPTYLINE] Drug Allergy 04-30-20 21 [facility] (2 sources) Penicillin V Drug Allergy rash [place] Other (7 sources) Penicillin; Translations: [penicillin] Drug Allergy Eruption of skin (disorder) [facility] [place] (4 sources) Penicillins Propensity to adverse reactions to drug 05-27-20 17 [facility] (4 sources) Pollen Propensity to adverse reactions to drug 05-27-20 17 [facility] Work Phone: (2 sources) Iothalamate; Translations: [Reglan] Drug Allergy 12-09-19 16 [facility] (1 source) Penicillins Drug allergy (disorder) 08-31-20 14 [facility] Repository (4 sources) Penicillins; Translations: [Penicillins] Allergy to drug (finding) Hives [facility] 250 DO Work Phone: (1 source) Metoclopramide Drug Allergy 05-13-20 [facility] Repository (1 source) Penicillins Drug allergy (disorder) 05-13-20 [facility] (1 source) Metoclopramide; Translations: [METOCLOPRAMIDE HCL] Drug Allergy 07-15-20 [facility] 3 Repository (1 source) Penicillin G Drug Allergy 09-24-20 Unknown [facility] Other (1 source) Allergies Reconciled Propensity to adverse reactions Unknown [facility] [employer] [facility] Other (20 sources) Amoxicillin Drug Allergy 06-25-[address] [facility] (20 sources) Penicillins Drug Intolerance 06-22-[address] [facility] (20 sources) Bee pollen; Translations: [BEE POLLEN] Propensity to adverse reactions 05-27-20 [facility] Work Phone: (20 sources) buPROPion Drug Allergy 04-21-20 [facility] (1 source) buPROPion; Translations: [BUPROPION HCL] Drug Allergy 04-21-20 [facility] Repository Medications Current Medications Medication Drug Class(es) Dates Sig (Normalized) Sig (Original) Tylenol (6 sources) Start: 09-01-2022 Tylenol Oral, Refills(s) 0 Start Date: 09/01/22 Status: Ordered [id number] 200 actuat albuterol 0.09 mg/actuat metered dose inhaler (20 sources) beta2-Adrenergic Agonist Start: 04-12-2024 take 2 [...] or wheezing for 21 *Pick strength-form from [employer] for eRX* Jun, Active azithromycin 250 mg oral tablet (1 source) Macrolide Antimicrobial Azithromycin 250 MG as directed Orally Active Breztri Aerosphere inhalation aerosol (1 source) Start: 11-14-19 Breztri Aerosphere inhalation aerosol 2 inh, Refill(s) 0 Start Date: 11/14/24 Status: Ordered 120 actuat budesonide 0.16 mg/actuat / formoterol fumarate 0.0048 mg/actuat / glycopyrrolate 0.009 mg/actuat metered dose inhaler (20 sources) Corticosteroid, beta2-Adrenergic Agonist Start: 09-15-20 End: 10-15-19 take 2 puff(s) by mouth in the morning Budeson-Glycopyrrol -Formoterol (Breztri Aerosphere) 160-9-4.8 MCG/ACT aerosol Indications: Pulmonary Emphysema Inhale 2 puffs in the morning and 2 puffs before bedtime. Rinse mouth after use. 10.7 g 5 09/15/2024 10/15/2024 Active End: 09-15-2024 take 2 puff(s) by mouth in the morning Jxrhutr-Efkpdgocwzn-Engehghkdt (Breztri Aerosphere) 160-9-4.8 MCG/ACT aerosol Indications: Pulmonary Emphysema Inhale 2 puffs in the morning and 2 puffs before bedtime. Rinse mouth after use. 09/15/2024 Discontinued (Reorder) buPROPion (5 sources) Aminoketone buPROPion HCl (WELLBUTRIN [...] mg oral tablet (20 sources) Benzodiazepine Start: 04-21-20 take 0.5 mg by mouth twice daily [...] times daily for 0 *Pick strength-form from [employer] for eRX* Aug, Active Start: 05-05-2017 Klonopin [...] 1.5 mg/ml oral solution (1 source) Uncompetitive H-phccpw-Q-aspartate Receptor Antagonist, Sigma-1 Agonist Start: 09-29-2023 take 10 mL by mouth every eight hours [place] DM 7.5-7.5 MG/5ML 10 mL Orally every 8 hours for 5 days Sep, Active dicyclomine hydrochloride 20 mg oral tablet (1 source) Anticholinergic Start: 04-06-2023 dicyclomine (BENTYL) 20 MG tablet Take by mouth 0 04/06/2023 Active Erenumab-aooe (AIMOVIG SC) (6 sources) Erenumab-aooe (AIMOVIG SC) Inject into the skin 0 Active {2 (0.2 ML) (esketamine 140 MG/ML Nasal Gregory [Spravato]) } Pack [Spravato 56 MG Dose Kit] (8 sources) Start: 12-22-2022 Spravato 28 mg (56 mg dose) nasal spray mg, Nasal, qWeek, Refills(s) 0 Start Date: 12/22/22 Status: Ordered esketamine (SPRA VATO) 28 MG/DEVICE SOPK nasal solution 3 sprays by Nasal route every 14 days 0 Active esketamine (Spra vato) 2 sprays/28 mg per device solution therapy Administer into each nostril 1 (one) time. 0 Active 168 hr estradiol 0.92253 mg/hr transdermal system (20 sources) Estrogen Start: 06-22-2024 estradiol (Climara) 0.05 MG/24HR Place 1 patch on the skin 1 (one) time per week 06/22/2024 Active Estradiol Patch 0.05 mg/24 hours weekly transdermal film, extended release (1 source) Start: 11-14-2024 apply 1 dose transdermal route every week Estradiol Patch 0.05 mg/24 hours weekly transdermal film, extended release = 1 patch(es), Refills(s) 0 Start Date: 11/14/24 Status: Ordered Ethinyl Estradiol / Levonorgestrel (14 sources) Progestin, Estrogen, Progestin-contain ing Intrauterine Device Start: 01-25-2020 take 1 tablet [...] capsule (20 sources) Serotonin Reuptake Inhibitor Start: 05-11-2017 take 1 mg by mouth once daily Prozac 40 mg Cap mg cap(s), Oral, Daily, Refills(s) 0 Start Date: 06/06/21 Status: Ordered take 2 capsules by m out every twenty-four hours PROzac 40 MG 2 capsule in the morning Orally Once a day for 30 day(s) Not-Taking/PRN 30 actuat fluticasone furoate 0.1 mg/actuat / umeclidinium 0.0625 mg/actuat / vilanterol 0.025 mg/actuat dry powder inhaler (2 sources) Anticholinergic, Corticosteroid, beta2-Adrenergic Agonist Start: 10-13-2023 End: 11-12-2023 take 1 puff(s) by inhalation once daily nkdppqsizta-pjaaitibv-dwspyp (TRELEGY ELLIPTA) 100-62.5-25 MCG/ACT AEPB inhaler Inhale 1 puff into the lungs daily 0 10/13/2023 11/12/2023 Active Start: 10-13-2023 take 1 puff(s) by mo [facility] in the morning Ziabaejghal-Hzljhmbce-Tpyhzk (Trelegy Ellipta) 100-62.5-25 MCG/ACT aerosol powder Indications: Chronic Obstructive Pulmonary Disease , Pulmonary Emphysema Inhale 1 puff in the morning. Rinse mouth after use. 1 each 3 10/13/2023 Active gabapentin 800 mg oral tablet (14 sources) Anti-epileptic Agent Start: 07-22-2022 gabapenti n [...] Refills: 0 Ordered: 23-Apr-2023 DO Active Ibuprofen (13 sources) Nonsteroidal Anti-inflammatory Drug Start: 09-01-2022 ibuprofen [...] as needed for Pain 0 Active levETIRAcetam 500 mg oral tablet (20 sources) Start: 08-29-2024 End: 11-27-2024 take 1 tablet by mouth in the morning levETIRAcetam (Keppra) 500 MG tablet Indications: Seizures (CMS/HCC) Take 1 tablet (500 mg) by mouth in the morning and 1 tablet (500 mg) before bedtime. 60 tablet 2 08/29/2024 11/27/2024 Active Start: 03-11-2023 take 1 tablet by loan th every twelve hours levETIRAcetam (Keppra) 500 MG tablet Take 500 mg by mouth every 12 (twelve) hours. 03/11/2023 Active Start: 09-24-2022 Keppra keppra( 500mg at bedtime ) Active -Hx Entry at bedtime for 0 *Pick strength-form from [employer] for eRX* Aug, Active Start: 09-01-2022 take [...] oral tablet (20 sources) Sympathomimetic-like Agent Start: 07-13-2022 End: 08-24-2024 modafinil 200 mg Tab Refills(s) 0 Start Date: 07/06/23 Status: Ordered modfinil 200mg bid (1 source) Start: 09-24-2022 modfinil 200mg bid modfinil 200mg bid( ) Active -Hx Entry for 0 *Reorder from [employer] for eRx and Interaction Alerts* Aug, Active naratriptan (1 source) Serotonin-1b and Serotonin-1d Receptor Agonist Start: 09-24-2022 naratriptan naratriptan( 2.5mg as needed for breakthrough migraines ) Active -Hx Entry as needed for breakthrough migraines for 0 JOSE *Reorder from [facility] for eRx and Interaction Alerts* Aug, Active nystatin [id number] unt/ml oral suspension (2 sources) Polyene Antifungal Start: 07-18-2022 take 4 mL by mouth three times daily Nystatin [id number] UNIT/ML 4 ml Mouth/Throat tid for 7 days Jun, Active Start: 07-18-2022 take 4 mL by mouth t hree times daily Nystatin [id number] UNIT/ML 4 ml Mouth/Throat tid for 7 days Jun, Active potassium citrate 10 meq extended release oral tablet (20 sources) Start: 02-23-2024 End: 02-17-2025 Urocit-K 10 mEq Tab-ER 20 mE q, 2 tab(s), Oral, BID for 90 day(s), 360 tab(s), Refill(s) 3, [id number], 165, cm, 07/06/23 13:33:00 EDT, Height/Length Dosing, [...] uth twice daily potassium citrate (UROCIT-K) 10 MEQ (1080 MG) extended release tablet Take 2 tablets by mouth 2 times daily 0 Active Potassium Citrat e 99 MG [...] 05/01/2023 05/21/2023 Active pregabalin 200 mg oral capsu le (20 sources) Start: 11-14-2024 pregabalin 200 mg Cap 200 mg = 1 cap(s), Refills(s) 0 Start Date: 11/14/24 Status: Ordered Start: 07-26-2024 End: 11-06-2024 take 1 capsule by mouth in the morning pregabalin (Lyrica) 200 MG capsule Indications: Fibromyalgia Take 1 capsule (200 mg) by mouth in the morning and 1 capsule (200 mg) before bedtime. 60 capsule 2 07/26/2024 11/06/2024 Discontinued Start: 04-05-2024 take 1 capsule by mo [...] before bedtime. 60 capsule 2 10/13/2023 Active promethazine hydrochloride 25 mg oral tablet [...] for nausea or vomiting 06/30/2024 Discontinued (Reorder) Semaglutide-Weight Management (Wegovy) 0.25 MG/0.5ML solution auto-injector (5 sources) Start: 05-19-2024 End: 06-16-2024 Semaglutide-Weight Management (Wegovy) 0.25 MG/0.5ML solution auto-injector Indications: Obesity (BMI 30-39.9) Inject 0.25 mg under the skin every 7 (seven) days for 28 days 2 mL 05/19/2024 06/16/2024 Active Spravato 28 mg (56 mg dose) [...] pills in 24 hours *Pick strength-form from [employer] for eRX* Aug, Active Start: 04-26-2017 End: 09-07-2024 take 1 mg by mouth once Imitrex 100 mg Tab mg tab(s) , Oral, Once, Refills(s) 0 Start Date: 06/06/21 Status: Ordered Start: 04-26-2017 SUMAtriptan (I MITREX) 100 MG [...] alpha-2 Adrenergic Agonist Start: 04-05-2021 End: 07-31-2024 take 1 mg by mouth every eight hours tiZANidine 4 mg Tab mg tab(s), Oral, q8hr, Refills(s) 0 Start Date: 06/06/21 Status: Ordered Completed/Discontinued Medications Medication Drug Class(es) Dates Sig (Normalized) Sig (Original) Atogepant (Qulipta) 60 MG tablet (18 sources) End: 08-24-2024 take 1 tablet by mouth once daily Atogepant (Qulipta) 60 MG tablet Take 60 mg by mouth Daily 08/24/2024 Discontinued (Therapy completed) take 1 tablet by mouth once cleve y Atogepant (Qulipta) 60 MG tablet Take 60 mg by mouth Daily Active famotidine 20 mg oral tablet (8 sources) Histamine-2 Receptor Antagonist Start: 04-20-2024 End: [...] Refills(s) 11, Pharmacy: [facility] #[id number], 165, cm, 12/22/22 13:39:00 EDT, Height/Length Dosing, 75, kg, 12/22/22 13:39:00 EDT, Weight Dosing Start Date: 12/22/22 Stop Date: 12/17/23 Status: Ordered Ketorolac (4 sources) Nonsteroidal Anti-inflammatory Drug, Cyclooxygenase Inhibitor Start: 11-16-2014 Toradol per 15 mg Oct, 60 mg Start: 07-15-2012 Toradol per 15 mg 18 Jun, 2012 60 mg phentermine hydrochloride 37.5 mg oral tablet (11 sources) Sympathomimetic Amine Anorectic Start: 04-20-2024 End: 05-20-2024 take 1 tablet by mouth before mealtime phentermine (Adipex-P) 37.5 MG tablet Indications: Obesity (BMI 30-39.9) Take 1 tablet (37.5 mg) by mouth in the morning. Take before meals. 30 tablet 04/20/2024 05/19/2024 Discontinued Start: 12-22-2022 take 1 mg by mouth once daily Adipex-P mg, Oral, Daily, Refills(s) 0 Start Date: 12/22/22 Status: Ordered Start: 12-01-2022 take 1 tablet by loan th once daily phentermine (ADIPEX-P) 37.5 MG tablet Take 1 tablet by mouth daily. 0 12/01/2022 Active Spravato (56 MG Dose) SOPK (4 [...] to other specified organisms Episodic Adjustment disorders (20 sources) Adjustment disorder; Translations: [Adjustment disorder, unspecified] Onset: 08-26-2023 08-26-2023 Chronic Administrative/social admission (2 sources) Person consulting for explanation of examination or test findings; Translations: [Person consulting for explanation of examination or test findings] Onset: 07-30-2023 Episodic Anxiety disorders (20 sources) Mixed anxiety and depressive disorder; Translations: [Anxiety disorder, unspecified] Onset: 07-20-2017 Resolved: 10-06-2024 06-06-2021 Chronic Calculus of urinary tract (20 sources) Kidney stone; Translations: [Calculus of kidney] Onset: 07-08-2022 Episodic Chronic obstructive pulmonary disease and bronchiectasis (20 sources) Pulmonary emphysema; Translations: [Other emphysema] Onset: [...] epilepticus; Translations: [Grand mal seizure] Onset: 07-15-2023 Resolved: 10-05-2024 10-13-2023 Chronic Epilepsy; convulsions (20 sources) Seizure; Translations: [Unspecified convulsions] Onset: 01-07-2022 Resolved: 04-20-2024 08-26-2023 Episodic Fluid and electrolyte disorders (14 sources) Dehydration; Translations: [Hyperkalemia] Onset: 07-09-2022 08-24-2024 Episodic Gastritis and duodenitis (6 sources) Chronic antral gastritis 07-03-2021 Chronic Genitourinary symptoms and ill-defined conditions (20 sources) Urge incontinence of urine; Translations: [Urge incontinence] Onset: 12-17-2023 12-17-2023 Chronic Genitourinary symptoms and ill-defined conditions (14 sources) Dysuria; Translations: [Dysuria] Onset: 07-30-2022 Episodic Headache; including migraine (20 sources) Migraine; Translations: [Migraine, unspecified, without mention of intractable migraine without mention of status migrainosus] Onset: 07-15-2023 Resolved: 10-05-2024 06-06-2021 Chronic Headache; including migraine (1 source) Headache; including migraine; Translations: [HEADACHE UNSPECIFIED] Onset: 02-11-2023 Malaise and fatigue (20 sources) Fatigue; Translations: [Weakness] Onset: 02-09-2023 06-06-2021 Episodic Menopausal disorders (2 sources) Menopausal symptom; Translations: [Menopausal and female climacteric states] Onset: 11-11-2023 11-11-2023 Chronic Mood disorders (20 sources) Severe recurrent major depression without psychotic features; Translations: [Major depressive disorder, recurrent severe without psychotic features] Onset: 06-13-2021 Resolved: 10-05-2024 11-17-2022 Chronic Mood disorders (1 source) Mood disorders; Translations: [DEPRESSION UNSPECIFIED] Onset: 02-11-2023 Other aftercare (1 source) Other [facility] (current) drug therapy; Translations: [[facility] CURRENT DRUG THERAPY] Onset: 02-11-2023 Episodic Other circulatory disease (6 sources) Orthostatic hypotension; Translations: [Orthostatic hypotension] 07-11-2024 Episodic Other circulatory disease (7 sources) Prehypertension; Translations: [Elevated blood-pressure reading, without diagnosis of hypertension] Onset: 10-06-2024 10-06-2024 Episodic Other connective tissue disease (20 sources) Fibromyalgia; Translations: [Myalgia and myositis, unspecified] Onset: 04-30-2021 06-06-2021 Episodic Other diseases of bladder and urethra (1 source) Detrusor overactivity; Translations: [Overactive bladder] Onset: 11-14-2024 Chronic Other diseases of bladder and urethra (1 source) Overactive bladder 11-14-2024 Chronic Other female genital disorders (1 source) Postcoital bleeding; Translations: [Postcoital and contact bleeding] Chronic Other female genital disorders (2 sources) H/O: menorrhagia; Translations: [History of menorrhagia] Episodic Other female genital disorders (1 source) Vaginal discomfort; Translations: [Unspecified condition associated with female genital organs and menstrual cycle] 11-11-2023 Episodic Other gastrointestinal disorders (20 sources) Irritable bowel syndrome; Translations: [Mixed irritable bowel syndrome] Onset: 10-13-2023 07-03-2021 Chronic Other gastrointestinal disorders (6 sources) Alteration in bowel elimination 06-11-2021 Episodic [...] sense organs] Episodic Other nervous system disorders (20 sources) Paresthesia; Translations: [Paresthesia of skin] Onset: 06-13-2024 06-13-2024 Episodic Other non-traumatic joint disorders (7 sources) Joint pain; Translations: [Pain in unspecified joint] 06-06-2021 Episodic Other nutritional; endocrine; and metabolic disorders (1 source) Obesity; Translations: [Obesity, unspecified] Chronic Other nutritional; endocrine; and metabolic disorders (20 sources) Body mass index 30+ - obesity; Translations: [Obesity, unspecified] Onset: 02-16-2024 02-16-2024 Chronic Other nutritional; endocrine; and metabolic disorders (6 sources) Unintentional weight loss 06-06-2021 Episodic Other [...] [Flushing] Onset: 06-21-2024 Episodic Residual codes; unclassified (20 sources) Memory impairment; Translations: [Other amnesia] Onset: 06-13-2024 06-13-2024 Episodic Screening and history of mental health and substance abuse codes (5 sources) Personal history of nicotine dependence; Translations: [Ex-smoker] Onset: 07-09-2022 Episodic Sprains and strains (4 sources) Strain of back muscle; Translations: [Sprain of joints and ligaments of unspecified parts of neck, initial encounter] Resolved: 01-30-2020 06-06-2024 Episodic Syncope (20 sources) Syncope; Translations: [Syncope and collapse] Onset: 06-09-2023 Episodic Unclassified (1 source) Cancer cervix screening status; Translations: [Screening for cervical cancer] Unclassified (2 sources) Patient encounter status; Translations: [Screening mammogram, encounter for] Unclassified (6 sources) Body mass index 20-24 - normal [...] Date Documented Da te Episodic/Chronic Allergic reactions (20 sources) Contact dermatitis due to poison loli; Translations: [Allergic contact dermatitis due to plants, except food] Onset: 05-01-2023 Episodic Headache; including migraine (20 sources) Headache; Translations: [Headache] Onset: 10-13-2023 Resolved: 10-13-2023 10-13-2023 Episodic Mycoses (20 sources) Candidal stomatitis; Translations: [Candidiasis of mouth] Onset: 11-27-2023 Episodic Nausea and vomiting (20 sources) Nausea with vomiting, unspecified; Translations: [Nausea] Onset: 02-11-2023 06-30-2024 Episodic Nonspecific chest pain (20 sources) Chest pain; Translations: [Chest pain, unspecified] [...] cycle] Onset: 11-11-2023 Episodic Other gastrointestinal disorders (20 sources) Dysphagia; Translations: [Dysphagia, unspecified] Onset: 12-17-2023 12-17-2023 Episodic Other nervous system disorders (20 sources) Median nerve neuritis; 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, right upper limb] Onset: 12-17-2023 Resolved: 12-17-2023 12-17-2023 Chronic Other nervous system disorders (20 sources) Ataxia; Translations: [Ataxia, unspecified] Onset: 06-13-2024 06-13-2024 Episodic Other non-traumatic joint disorders (20 sources) Hip pain; Translations: [Pain in right hip] Onset: 12-17-2023 03-07-2024 Episodic Other non-traumatic joint disorders (20 sources) Enthesopathy of hip region; Translations: [Other specified joint disorders, right hip] Onset: 03-07-2024 03-07-2024 Episodic Other nutritional; endocrine; and metabolic disorders (20 sources) Abnormal weight gain; Translations: [Abnormal weight gain] Onset: 03-22-2024 03-22-2024 Episodic Other skin disorders (20 sources) Skin lesion; Translations: [Disorder of the skin and subcutaneous tissue, unspecified] Onset: 05-19-2024 05-19-2024 Episodic Ovarian cyst (20 sources) Cyst of left ovary; Translations: [Unspecified ovarian cyst, left side] Onset: 12-17-2023 12-17-2023 Episodic Skull and face fractures (1 source) Closed fracture of nasal bones; Translations: [Fracture of nasal bones, initial encounter for closed fracture] Resolved: 01-30-2020 Episodic Spondylosis; intervertebral disc disorders; other back problems (20 sources) Pain in thoracic spine; Translations: [Pain in thoracic spine] Onset: 12-17-2023 12-17-2023 Episodic Superficial injury; contusion (1 source) Contusion [...] candidiasis of vulva and vagina] Viral infection (20 sources) COVID-19; Translations: [Other specified viral infection] Onset: 12-17-2023 Resolved: 12-17-2023 12-17-2023 Episodic Results Test Name Value Interpretation Reference Range Facility Ambulatory Visit Summaryon 0 11-14-2024 Ambulatory Visit Summary Ambulatory Visit Summary ANDREA LONG :1980 Visit Date:11/14/2024 Ambulatory Visit Instructions Your Diagnosis Bilateral kidney stones OAB (overactive bladder) Your Care Team Attending Physician - RAFAL COLIN PA-C Primary Care Physician - CAITLIN FINCH CNP This Is Your Medications List acetaminophen (Tylenol) budesonide/formoterol/glycop yrrolate (Breztri Aerosphere inhalation aerosol) clonazepam (Klonopin 1 mg Tab) estradiol (Estradiol Patch 0.05 mg/24 hours weekly transdermal film, extended release) fluoxetine (Prozac 40 mg Cap) ibuprofen levetiracetam (Keppra 250 mg Tab) potassium citrate (Urocit-K 10 mEq Tab-ER) pregabalin (pregabalin 200 mg Cap) sumatriptan (Imitrex 100 mg Tab) tizanidine (tiZANidine 4 mg Tab) Procedures Performed Colonoscopy (06/26/2021), EGD - Esophagogastroduodenoscopy (06/26/2021), Partial hysterectomy (11/12/2020), Fracture of bone of nasal sinus (09/28/2017), Appendectomy. Discharge Vitals Heart Rate (Peripheral) 83 Respiratory Rate 18 Blood Pressure 128/89 Height 165 cm Height 65 in Weight 84.5 kg Weight 186.29 lb BMI 31.04 What to do next Scheduled Follow-Up Appointments Thursday2025 11:20 AM EST With: RAFAL COLIN PA-C Where: [facility] [address] [address]- Medications What How Much When Instructions Unchanged acetaminophen (Tylenol) By Mouth Unchanged budesonide/ formoterol/ glycopyrrolate (Breztri Aerosphere inhalation aerosol) 2 Inhalation Unchanged clonazepam (Klonopin 1 mg Tab) See instructions tid prn Unchanged estradiol (Estradiol Patch 0.05 mg/ 24 hours weekly transdermal film, extended release) 1 Patches Unchanged fluoxetine (Prozac 40 mg Cap) By Mouth Every day Unchanged ibuprofen Unchanged levetiracetam (Keppra 250 mg Tab) By Mouth 2 times a day Unchanged potassium citrate (Urocit-K 10 mEq Tab-ER) 2 Tablets By Mouth 2 times a day Duration: 90 Days Unchanged pregabalin (pregabalin 200 mg Cap) 1 Capsules Unchanged sumatriptan (Imitrex 100 mg Tab) By Mouth Once Unchanged tizanidine (tiZANidine 4 mg Tab) By Mouth Every 8 hours Allergies Reglan (Agitation) penicillin (Rash) Problems Ongoing - Any problem that you are currently receiving treatment for. Anxiety and depression Arthralgia Bilateral kidney stones BMI 24.0-24.9, adult Change in bowel habits Chronic antral gastritis Dysuria Fatigue Fibromyalgia IBS (irritable bowel syndrome) Kidney stone Migraines OAB (overactive bladder) Weight loss, unintentional Patient Survey You may receive a survey via text or e-mail asking about your office visit. Please share your experience with us by completing your survey. We appreciate your feedback and thank you for choosing us for your care. Education Materials Dietary Guidelines to Help Prevent Kidney Stones Kidney stones are deposits of minerals and salts that form inside your kidneys. Your risk of developing kidney stones may be greater depending on your diet, your lifestyle, the medicines you take, and whether you have certain medical conditions. Most people can lower their risks of developing kidney stones by following these dietary guidelines. Your dietitian may give you more specific instructions depending on your overall health and the type of kidney stones you tend to develop. What are tips for following this plan? Reading food labels ??? Choose foods with no salt added or low-salt labels. Limit your salt (sodium) intake to less than 1,500 mg a day. ??? Choose foods with calcium for each meal and snack. Try to eat about 300 mg of calcium at each meal. Foods that contain 200???500 mg of calcium a serving include: ? 8 oz (237 mL) of milk, vpbipyj-gekafrpedbwk-kncqu milk, and calcium-fortifiedfruit juice. Calcium-fortified means that [...] of sardines or mackerel. Most people need 1,000???1,500 mg of calcium a day. Talk to your dietitian about how much calcium is recommended for you. Shopping ??? Buy plenty of fresh fruits and vegetables. Most people do not need to avoid fruits and vegetables, even if these foods contain nutrients that may contribute to kidney stones. ??? When shopping for convenience foods, choose: ? Whole pieces of fruit. ? Pre-made salads with dressing on the side. ? Low-fat fruit and yogurt smoothies. ??? Avoid buying frozen meals or prepared deli foods. These can be high in sodium. ??? Look for foods with live cultures, such as yogurt and kefir. ??? Choose high-fiber grains, such as whole-wheat breads, oat bran, and whea (more content not included)... Normal [facility] Urology Office/Clinic Noteon 11-14-2024 Urology Office/Clinic Note Urology Office/Clinic Note Chief Complaint 1yr w/ KUB HPI Staff 44yr old female pt here for 1yr f/u KUB. KUB completed 08/17/24 showed bilateral nephrolithiasis, grossly stable. Previous Dx: bilateral kidney stones *Effer-K 25mEq BID Dysuria: denies Incomplete bladder emptying: denies Hematuria: denies Frequency: about every 2-3hrs Urgency: yes Nocturia: 2x per night Stream: varies Leaking: yes, when coughing or sneezing, and sometimes at night Post void dripping: sometimes Wearing pads/ Depends: wears liner at night Urge incontinence: sometimes Stress incontinence: yes Incontinence without Sensory Awareness: denies Abdominal pain: yes - IBS Flank pain: right side Review of Systems PHQ Score Initial Depression Screen Score: 0 SCORE no fever, chills, malaise, myalgia Physical Exam Vitals & Measurements HR: 83(Peripheral) RR: 18 BP: 128/89 HT: 65 in HT: 165 cm WT: 84.5 kg WT: 186.29 lb BMI: 31.04 General: nontoxic, NAD Mouth: moist mucosa Lungs: normal respiratory effort Cardio: regular rate, good distal perfusion Abdomen: nondistended Neurologic: Grossly normal Skin: No rashes or suspicious lesions Assessment/Plan 1. Bilateral kidney stones (N20.0: Calculus of kidney) KUB 07/02/22 - Suspect bilateral stones with several tiny calcifications projecting over the kidneys. A small distal right ureteral stone cannot be excluded. CT AP wo con 07/04/22 - Bilateral nonobstructing nephrolithiasis but unremarkable ureters. Metabolic workup 09/03/22 - Volume 2150, slightly L. U24 citric acid 292 L. Started Effer-K 25 mEq BID. KUB 04/06/23 - no stones noted. KUB 07/03/23 - 3 punctate stone in the Lt kidney, and 2 punctate stones in the Rt kidney seen on the CT from 07/04/22 are not seen, no new stones noted TODAY: KUB 08/17/24 - tiny punctate stones over each kidney. Pt denies gross hematuria or stone passage since last ov. Has bilat low back/flank pain but could be related to her hip. Says she has to have surgery on R hip at [facility] soon. Advised that with tiny size of her stones, I don't expect they'd be causing the pain. She continues on the Effer-K. No side effects. Affordable. -F/u 1 yr w KUB prior Ordered: Body Mass Index (BMI) documented 3008F Current tobacco non-user 1036F Depression Screening Negative 3352F E&M of Est. Patient Moderate 30-39 Min 12433 Influenza immunization status assessed 1030F Medication list documented in medical record 1159F Most recent diastolic blood pressure 80-89 mm Hg 3079F Review of all meds by a prescribing practitioner or clinical pharmacist documented in EHR 1160F Systolic BP <130 mm Hg (Most Recent) 3074F Urnls Dip Stick Auto w/o Microscopy POC 12393 2. OAB (overactive bladder) (N32.81: Overactive bladder) UA completed in office today shows no microhematuria or signs of infection. BBSQ 18 poor control. +FI, KARYNA, UUI. Discussed tx options for bothersome urinary sx including oral medications, Botox, SNM. Medication management includes anticholinergics and beta-3 agonists. Beta-3's (Myrbetriq/Gemtesa) are often preferable due to lower side effect profile, but most insurances won't cover without trying anticholinergics first. I explained the most common side effects are dry mouth, dry eyes, and constipation. We discussed OTC options to help with these side effects. Pt feels she is on enough medications as it is and does not think her urinary sx are bothersome enough to warrant tx at this time. I did recommend avoiding bladder irritants and starting kegel exercises to help w sx. Ordered: E&M of Est. Patient Moderate 30-39 Min 53971 Follow-up With When Contact Information RAFAL COLIN PA-C, URL In 1 year [address] [address] Additional Instructions: Patient Education Kidney Stones, [id number] Dietary Guidelines to Help Prevent Kidney Stones Problem List/Past Medical History Ongoing Anxiety and depression Arthralgia Bilateral kidney stones BMI 24.0-24.9, adult Change in bowel habits Chronic antral gastritis Dysuria Fatigue Fibromyalgia IBS (irritable bowel syndrome) Kidney stone Migraines OAB (overactive bladder) Weight loss, unintentional Historical No qualifying data Procedure/Surgical History Colonoscopy (06/26/2021), EGD - Esophagogastroduodenoscopy (06/26/2021), Partial hysterectomy (11/12/2020), Fracture of bone of nasal sinus (09/28/2017), Appendectomy. Medications Breztri Aerosphere inhalation aerosol, 2 inh Estradiol Patch 0.05 mg/24 hours weekly transdermal film, extended release, 1 patch(es) ibuprofen Imitrex 100 mg Tab, Oral, Once Keppra 250 mg Tab, Oral, BID Klonopin 1 mg Tab, See Instructions pregabalin 200 mg Cap, 200 mg= 1 cap(s) Prozac 40 mg Cap, Oral, Daily tiZANidine 4 mg Tab, Oral, q8hr Tylenol, Oral Urocit-K 10 mEq Tab-ER, 20 mEq= 2 tab(s), Oral, BID, 3 refills Allergies Reglan (Agitation) penicillin (Rash) (more content not included)... Normal [facility] Comment on above: Result Comment: Elec tronically Signed By: RAFAL COLIN PA-C\.br\Date and Time Signed: 11/14/24 15:29 EST ACETYLCHOLINE RECEPTOR AB, A LLon 11-03-2024 Acetylcholine receptor binding Ab (S) [Moles/Vol] <0.03 0.00 - 0.24 nmol/L [facility] Comment on above: Negative: 0.00 - 0.2 4 Borderline: 0.25 - 0.40 Positive: >0.40 Acetylcholine receptor blocking Ab Qn (S) 20 % 0 - 25 % [facility] Comment on above: Negative: 0 - 25 Borderline: 26 - 30 Positive: >30 AChR-modulating Ab 0 % 0 - 45 % [facility] Comment on above: Interpretive Informa tion: Negative: 0 - 45% Positive: > 45% No single value for AChR-modulating antibody should be used as a sole basis for diagnosis or response to therapy. Test(s) [id number] Blocking Abs, Serum This test was developed and its performance characteristics determined by [employer]. It has not been cleared or approved by the Food and Drug Administration. Test(s) [id number] Ab was developed and its performance characteristics determined by [employer]. It has not been cleared or approved by the Food and Drug Administration. Performed at: [address] [id number] Technical Product Manager: Steve Guillaume MD, Phone: [phone] [facility] LYME DISEASE SEROLOGY W/REFL EXon 11-03-2024 B. burgdorferi IgG+IgM IA Ql (S) Negative Negative [facility] Comment on above: Lyme antibodies not detected. Reflex testing is not indicated. No laboratory evidence of infection with B. burgdorferi (Lyme disease). Negative results may occur in patients recently infected (less than or equal to 14 days) with B. burgdorferi. If recent infection is suspected, repeat testing on a new sample collected in 7 to 14 days is recommended. Performed at: [address] [id number] Technical Product Manager: Apollo Croft PhD, Phone: [phone] [facility] MUSK ABS, SERUMon 11-03-2024 Muscle specific receptor tyrosine kinase Ab IA Qn (S) <1.0 U/mL [facility] Comment on above: Reference Range: Negative: <1.0 Positive: 1.0 or higher A positive result, in the context of congruent clinical findings, confirms the diagnosis of autoimmune MuSK myasthenia gravis. COMMENTS: - Myasthenia gravis (MG) is caused by auto-antibodies against proteins of the neuromuscular junction. Most cases (about 90%) of generalized MG are anti- acetylcholine receptor (AChR) antibody-positive.(1) - Of generalized MG patients who lack anti-AChR antibodies (AChR-seronegative), about 40% are positive for Muscle- Specific Kinase (MuSK) antibody.(1,2) - Though a positive MuSK result is specific for the diagnosis of MuSK MG, a negative MuSK result does not rule out a MG diagnosis. - MuSK antibody levels have been shown to correlate with disease severity.(3) Serial measurements may be useful to follow treatment. References: 1. Itz-Derek S et al. J Autoimmunity 2014;52:90-100. 2. Tunde LPOEZ et al. PNAS 2013;110(24);51577-76855. 3. Mikhaili E et al. Neurology 2006;67:505-507. This test was developed and its performance characteristics determined by [employer]. It has not been cleared or approved by the Food and Drug Administration. Performed at: 02 [facility] [employer] [address] [place] [id number] Technical Product Manager: Kurt Olivares MD, Phone: [phone] [employer] No Panel Informationon 11-03 [facility] ALL MYOGLOBINon 08-17-2024 Myoglobin [Mass/Vol] 63 ng/mL 9 - 82 ng/mL [facility] ALL THYROID STIM HORMONEon 1 10-17-2023 TSH Qn 1.322 m[IU]/L [facility] CCF CKon 08-17-2024 CK [Catalytic activity/Vol] 128 U/L 26 - 192 U/L [facility] CMP (CMP) (FOR REMOTE FH C USE)on 08-17-2024 Albumin [Mass/Vol] 3.6 g/dL 3.4 - 5.0 g/dL [facility] ALBUMIN GLOBULIN RATIO 1 [facility] ALP [Catalytic activity/Vol] 103 U/L 46 - 116 U/L [facility] ALT [Catalytic activity/Vol] 27 U/L 14 - 59 U/L [facility] Anion gap [Moles/Vol] 13.8 mmol/L [facility] AST [Catalytic activity/Vol] 28 U/L 15 - 37 U/L [facility] Bilirubin [Mass/Vol] 0.3 mg/dL 0.2 - 1.0 mg/dL [facility] Calcium [Mass/Vol] 9 mg/dL 8.5 - 10. 1 mg/dL [facility] Chloride [Moles/Vol] 103 mmol/L 98 - 107 mmol/L [facility] CO2 [Moles/Vol] 27.4 mmol/L 21.0 - 32.0 mmol/L [facility] Creatinine [Mass/Vol] 1.1 mg/dL High 0.55 - 1.02 mg/dL [facility] GFR/1.73 sq M.predicted CKD-EPI (S/P/Bld) [Vol rate/Area] >60 >=60 mL/min/1.[address] [facility] Globulin (S) [Mass/Vol] 3.5 g/dL [facility] Glucose [Mass/Vol] 88 mg/dL 74 - 106 mg/dL [facility] Interpretation and review of laboratory results Abnormal [facility] Potassium [Moles/Vol] 5.2 mmol/L High 3.5 - 5.1 mmol/L [facility] Protein [Mass/Vol] 7.1 g/dL 6.4 - 8.2 g/dL [facility] Sodium [Moles/Vol] 139 mmol/L 136 - 145 mmol/L [facility] TBH EGFR-NON AF RWANDAN 53 Low >=60 mL/min/1.[address] [facility] Urea nitrogen [Mass/Vol] 21 mg/dL High 7.0 - 18.0 mg/dL [facility] Urea nitrogen/Creatinin e [Mass ratio] 19.1 mg/mg [facility] No Panel Informationon 08-[address] [facility] Patient Letter FTMCon 2023 Patient Letter [facility] Patient Letter [facility] July 12, 2024 ANDREA LONG [address] [place] [id number] : 1980 Dear Andrea, You missed your [...] [facility] [address], [place] [address] [facility] ALL FOLLICLE STIMULATING HOR MONEon 06-22-2024 MHPT FOLLICLE STIM. HORM 99.6 mIU/mL [facility] Comment on above: Reference Range: Male: 1.5-12.4 Ovulating Female: Follicular Phase 3.5-12.5 Ovulation Phase 4.7-21.5 Luteal Phase 1.7-7.7 Postmenopausal Female: 25.8-134.8 ALL LUTEINIZING HORMONEon Interpretation and review of laboratory results Abnormal [facility] MHPT LUTEINIZING HORMONE 35.2 High [facility] Comment on above: Reference Range: Male: 1.7-8.6 Ovulating Female: Follicular Phase 2.4-12.6 Ovulation Phase 14.0-95.6 Luteal Phase 1.0-11.4 Postmenopausal Female: 7.7-58.5 Estradiolon 06-22-2024 Estradiol <5.0 Normal [facility] Comment on above: Result Comment: FEMALES: Normally menstruating Luteal phase 60-232 Follicular phase 31-90 Midcycle phase 60-533 Postmenopausal (untreated) <138 Fulvestrant treatment will show an increased estradiol concentration with this methodology. Alternate methodologies are available upon request. Performed By: #### E 2, LH, FSH #### [facility] [place] [address] Technical Product Manager: Ruddy Morales MD Follicle Stim. Hormon 2023 Follicle Stim. Horm 99.6 mIU/mL [facility] Comment on above: Result Comment: Refe rence Range: Male: 1.5-12.4 Ovulating Female: Follicular Phase 3.5-12.5 Ovulation Phase 4.7-21.5 Luteal Phase 1.7-7.7 Postmenopausal Female: 25.8-134.8 Performed By: #### E 2, LH, FSH #### [facility] [address] [place], [place] [id number] Technical Product Manager: Ruddy Morales MD Luteinizing Hormoneon 2023 Luteinizing Hormone 35.2 mIU/mL High 1.7-8.6 [facility] Comment on above: Result Comment: Refe rence Range: Male: 1.7-8.6 Ovulating Female: Follicular Phase 2.4-12.6 Ovulation Phase 14.0-95.6 Luteal Phase 1.0-11.4 Postmenopausal Female: 7.7-58.5 Performed By: #### E 2, LH, FSH #### [facility] [address] [place], [place] [id number] Technical Product Manager: Ruddy Morales MD No Panel Informationon 06-22 Original Ordering Pr ovider: FRANK DIAZ [facility] [employer] Cult,Genitalon 11-14-2023 Cult,Genital Specimen Description .VAGINA Culture NORMAL URO-GENITAL JORDYN YEAST NOT MARY ALBICANS OR MARY DUBLINIENSIS MODERATE GROWTH NEGATIVE FOR GROUP B STREPTOCOCCI NEGATIVE FOR NEISSERIA GONORRHOEAE Report Status FINAL 11/14/2023 Normal [facility] Comment on above: Performed By: #### G EC #### [facility] [address] [place], [place] [id number] Technical Product Manager: Ruddy Morales MD [facility] [address] [place], [place] [address] [address] Technical Product Manager: Jana Mei MD ALL FOLLICLE STIMULATING HOR MONEon 11-12-2023 MHPT FOLLICLE STIM. HORM 55.5 mIU/mL [facility] [employer] Comment on above: Reference Range: Male: 1.5-12.4 Ovulating Female: Follicular Phase 3.5-12.5 Ovulation Phase 4.7-21.5 Luteal Phase 1.7-7.7 Postmenopausal Female: 25.8-134.8 Original Ordering Pr ovider: FRANK DIAZ [facility] Estradiolon 11-12-2023 Estradiol 108.0 pg/mL [facility] Comment on above: FEMALES: Normally menstruating Luteal phase 60-232 Follicular phase 31-90 Midcycle phase 60-533 Postmenopausal (untreated) <138 Fulvestrant treatment will show an increased estradiol concentration with this methodology. Alternate methodologies are available upon request. [facility] FAD ? IO Estradiol 108.0 pg/mL Normal [facility] Comment on above: Result Comment: FEMALES: Normally menstruating Luteal phase 60-232 Follicular phase 31-90 Midcycle phase 60-533 Postmenopausal (untreated) <138 Fulvestrant treatment will show an increased estradiol concentration with this methodology. Alternate methodologies are available upon request. Performed By: #### F SH, LH, E2 #### [facility] [address] [place], [place] [id number] Technical Product Manager: Ruddy Morales MD Follicle Stim. Hormon 2023 Follicle Stim. Horm 55.5 mIU/mL [facility] Comment on above: Result Comment: Refe rence Range: Male: 1.5-12.4 Ovulating Female: Follicular Phase 3.5-12.5 Ovulation Phase 4.7-21.5 Luteal Phase 1.7-7.7 Postmenopausal Female: 25.8-134.8 Performed By: #### F SH, LH, E2 #### [facility] [address] [place] [address] Technical Product Manager: Ruddy Morales MD Follicle Stimulating Hormone on 11-12-2023 Follitropin Qn 55.5 m[IU]/mL mIU/mL [facility] [employer] [facility] [employer] Comment on above: Reference Range: Male: 1.5-12.4 Ovulating Female: Follicular Phase 3.5-12.5 Ovulation Phase 4.7-21.5 Luteal Phase 1.7-7.7 Postmenopausal Female: 25.8-134.8 Luteinizing Hormoneon 2023 Interpretation and review of laboratory results Abnormal [facility] FAD ? IO Lutropin Qn 33.8 m[IU]/mL High [facility] Comment on above: Reference Range: Male: 1.7-8.6 Ovulating Female: Follicular Phase 2.4-12.6 Ovulation Phase 14.0-95.6 Luteal Phase 1.0-11.4 Postmenopausal Female: 7.7-58.5 Luteinizing Hormone 33.8 mIU/mL High 1.7-8.6 [facility] Comment on above: Result Comment: Refe rence Range: Male: 1.7-8.6 Ovulating Female: Follicular Phase 2.4-12.6 Ovulation Phase 14.0-95.6 Luteal Phase 1.0-11.4 Postmenopausal Female: 7.7-58.5 Performed By: #### F SH, LH, E2 #### [facility] [address] [place], [place] [id number] Technical Product Manager: uRddy Morales MD PT ESTRADIOLon 11-12-2023 [facility] ESTRADIOL 108.0 pg/mL [facility] Comment on above: FEMALES: Normally menstruating Luteal phase 60-232 Follicular phase 31-90 Midcycle phase 60-533 Postmenopausal (untreated) <138 Fulvestrant treatment will show an increased estradiol concentration with this methodology. Alternate methodologies are available upon request. Original Ordering Pr ovider: FRANK BILLINGSLEY [facility] No Panel Informationon 11-12 [facility] COVID + FLU Quick Testingon 09-29-2023 SARS-CoV-2 (COVID-19) RNA KEN+probe Ql (Unsp spec) Negative [facility] [employer] [facility] Other COVID + FLU Quick Testing Negative [facility] [employer] [facility]) Other Quick Strepon 09-29-2023 S. pyogenes Org specific cx Ql (Throat) Negative [facility] [employer] [facility] Other Quick Strep [facility] [employer] [facility]) Other Echocardiogramon 06-09-[address], [address] [place] [address] TRANSTHORACIC ECHOCARDIOGRAM REPORT Patient Name: ANDREA Gomez Physician: [id number] Crystal Bone MD, [facility] Study Date: 06/09/2023 Referring SHANEKA DIAZ Physician: MRN/PID: [id number] PCP: Caitlin Finch Accession/Order#: [id number] Department [facility] Location: Date of : 1980 Fellow: Gender: F Nurse: Anjelica Gaming RN Admit Date: Bag Machine Adjuster: Ana Javier RDCS, RVT Height: 165.10 cm CC Report to: Weight: 78.02 kg Study Type: Echocardiogram BSA: 1.86 m2 Diagnosis/ICD: R94.31-Abnormal electrocardiogram [ECG] [EKG]; R06.02-Shortness of breath; C52-Asfyxte Indication: Former Smoker, Overweight, Fibromyalgia, COVID-19 2021 Procedure/CPT: Echo Complete w Full [id number] Study Detail: The following Echo studies were [...] 0.5 m/s (0.6-0.9m/s) PV Max P.9 mmHg [id number] Crystal Bone MD, [facility] Electronically signed on 06/12/2023 at 5:55:30 PM Final Normal [facility] CA tilt table teston 023 CA tilt table test [facility] Main [place] [id number] Cardiology Report Signed Patient: Andrea Long MR#: [id number] : 1980 Acct:[id number] Age/Sex: 43 / F ADM Date: 05/13/23 Loc: Room: Type: [facility] Attending Dr: Shaneka Diaz MD Copies [...] 05/13/23 1556 Signed By: 05/15/23 0000 Normal [facility] No Panel Informationon 05-13 -[facility] DO Work Phone: Office [...] Syncope Echocardiogram; Status:Hold For - Scheduling; Requested for:[id number]; IO Holter Monitor up to 48 Hrs; Status:Active - Perform Order; Requested for:[id number]; Tilt Table; Status:Hold For - Scheduling; Requested for:[id number]; SocHx: Former smoker Tobacco Use Screening; Status:Complete; Done: [id number] Syncope IO EKG Electrocardiogram- 12 Lead; Status:Complete; Done: [id number] Patient Instructions Please bring all medicines, vitamins, [...] shows normal sinus rhythm at 86 bpm MD interval 116 ms QRS duration 78 ms [...] further questions arise, Sincerely, Shaneka Diaz MD [facility] Surgical History Problems History of Appendectomy History [...] Touchworks PHQ-2 VITALSon 04-23-2023 PHQ-2 VITALS Yes -[facility] DO Work Phone: CBC AUTO DIFFon 02-09-2023 BASO # 0.0 103/ul Normal 0.0-0.1 [facility] Comment on above: Performed By: #### N A24U, [id number] #### [facility] [address] [place] [address] Dr. Manjinder Forman Basophils/100 WBC (Bld) 0.8 % Normal 0.2-2.0 [facility] Comment on above: Performed By: #### N A24U, [id number] #### [facility] [address] [place] [address] Dr. Manjinder Forman EO # 0.0 103/ul Normal 0.0-0.7 [facility] Comment on above: Performed By: #### N A24U, [id number] #### [facility] [address] [place] [address] [address] Manjinder Forman Eosinophils/100 WBC (Bld) 0.8 % Critically low 0.9-7.0 [facility] Comment on above: Performed By: #### N A24U, [id number] #### [facility] [address] [place] [address] Dr. Manjinder Forman Erythrocyte distribution width (RBC) [Ratio] 12.1 % Normal 11.0-15.0 [facility] Comment on above: Performed By: #### N A24U, [id number] #### [facility] [address] [place] [address] Dr. Manjinder Forman Hematocrit (Bld) [Volume fraction] 39.0 % Normal 36.0-48.0 [facility] Comment on above: Performed By: #### N A24U, [id number] #### [facility] [address] [place] [address] Dr. Manjinder Forman Hemoglobin (Bld) [Mass/Vol] 13.0 g/dL Normal 12.0-16.0 [facility] Comment on above: Performed By: #### N A24U, [id number] #### [facility] [address] [place] [address] Dr. Manjinder Forman IG # 0.02 10e3/ul Normal 0.00-0.03 [facility] Comment on above: Performed By: #### N A24U, [id number] #### [facility] [address] [place] [address] Dr. Manjinder Forman IG % 0.5 % Normal 0.0-0.5 [facility] Comment on above: Performed By: #### N A24U, [id number] #### [facility] [address] [place] [address] Dr. Manjinder Forman LYMPH # 0.9 103/ul Critically low 1.2-3.8 [facility] Comment on above: Performed By: #### N A24U, [id number] #### [facility] [address] [place] [address] Dr. Manjinder Forman Lymphocytes/100 WBC (Bld) 21.9 % Normal 20.5-60.0 [facility] Comment on above: Performed By: #### N A24U, [id number] #### [facility] [address] [place] [address] Dr. Manjinder Forman MANUAL DIFF REQ NO Normal [facility] Comment on above: Performed By: #### N A24U, [id number] #### [facility] [address] [place] [address] Dr. Manjinder Forman MCH (RBC) [Entitic mass] 31.5 pg Normal 26.7-34.0 [facility] Comment on above: Performed By: #### N A24U, [id number] #### [facility] [address] [place] [address] Dr. Manjinder Forman MCHC (RBC) [Mass/Vol] 33.3 g/dL Normal 29.9-35.2 [facility] Comment on above: Performed By: #### N A24U, [id number] #### [facility] [address] [place] [address] Dr. Manjinder Forman MCV (RBC) [Entitic vol] 94.4 fL Normal 81.0-99.0 [facility] Comment on above: Performed By: #### N A24U, [id number] #### [facility] [address] [place] [address] Dr. Manjinder Forman MONO # 0.5 103/ul Normal 0.3-0.8 [facility] Comment on above: Performed By: #### N A24U, [id number] #### [facility] [address] [place] [address] Dr. Manjinder Forman Monocytes/100 WBC (Bld) 11.5 % Normal 1.7-12.0 [facility] Comment on above: Performed By: #### N A24U, [id number] #### [facility] [address] [place] [address] Dr. Manjinder Forman NEUT # 2.5 103/ul Normal 1.4-6.5 [facility] Comment on above: Performed By: #### N A24U, [id number] #### [facility] [address] [place] [address] Dr. Manjinder Forman Neutrophils/100 WBC (Bld) 64.5 % Normal 43.0-75.0 [facility] Comment on above: Performed By: #### N A24U, [id number] #### [facility] [address] [place] [address] Dr. Manjinder Forman Platelet mean volume (Bld) [Entitic vol] 10.0 fL Normal 9.5-13.5 [facility] Comment on above: Performed By: #### N A24U, [id number] #### [facility] [address] [place] [address] [address] Manjinder Forman PLT 289 103/ul Normal 150-450 [facility] Comment on above: Performed By: #### N A24U, [id number] #### [facility] [address] [place] [address] [address] Manjinder Forman RBC 4.13 106/ul Critically low 4.20-5.40 [facility] Comment on above: Performed By: #### N A24U, [id number] #### [facility] [address] [place] [address] [address] Manjinder Forman WBC 3.9 103/ul Critically low 4.0-11.0 [facility] Comment on above: Performed By: #### N A24U, [id number] #### [facility] [address] [place] [address] [address] Manjinder Forman DRUG SCREEN RAPID (URINE)on 02-09-2023 AMP Positive Abnormal NEGATIVE [facility] Comment on above: Performed By: #### D RUGRPD, ERUR, PREGU #### [facility] [address] [place] [address] [address] Manjinder Forman BAR Negative Normal NEGATIVE [facility] Comment on above: Performed By: #### D RUGRPD, ERUR, PREGU #### [facility] [address] [place] [address] [address] Manjinder Forman BUP Negative Normal NEGATIVE [facility] Comment on above: Performed By: #### D RUGRPD, ERUR, PREGU #### [facility] [address] [place] [address] [address] Manjinder Forman BZO Positive Abnormal NEGATIVE [facility] Comment on above: Performed By: #### D RUGRPD, ERUR, PREGU #### [facility] [address] [place] [address] [address] Manjinder Forman BAO Negative Normal NEGATIVE [facility] Comment on above: Performed By: #### D RUGRPD, ERUR, PREGU #### [facility] [address] [place] [address] [address] Manjinder Forman CUT-OFFS SEE BELOW Normal [facility] Comment on above: Result Comment: AMP [...] By: #### D RUGRPD, ERUR, PREGU #### [facility] [address] [place] [address] [address] Manjinder Forman DRUG CUT HEADER DRUG CLASS TEST SYST EM CUT-OFF CONCENTRATIONS ARE FOLLOWS: Normal [facility] Comment on above: Performed By: #### D RUGRPD, ERUR, PREGU #### [facility] [address] [place] [address] [address] Manjinder Forman mAMP Negative Normal NEGATIVE [facility] Comment on above: Performed By: #### D RUGRPD, ERUR, PREGU #### [facility] [address] [place] [address] [address] Manjinder Forman MTD Negative Normal NEGATIVE [facility] Comment on above: Performed By: #### D RUGRPD, ERUR, PREGU #### [facility] [address] [place] [address] [address] Manjinder Forman OPI Negative Normal NEGATIVE [facility] Comment on above: Performed By: #### D RUGRPD, ERUR, PREGU #### [facility] [address] [place] [address] [address] Manjinder Forman OXY Negative Normal NEGATIVE [facility] Comment on above: Performed By: #### D RUGRPD, ERUR, PREGU #### [facility] [address] [place] [address] [address] Manjinder Forman PCP Negative Normal NEGATIVE [facility] Comment on above: Performed By: #### D RUGRPD, ERUR, PREGU #### [facility] [address] [place] [address] [address] Manjinder Forman PPX Negative Normal NEGATIVE [facility] Comment on above: Performed By: #### D RUGRPD, ERUR, PREGU #### [facility] [address] [place] [address] [address] Manjinder Forman TCA Negative Normal NEGATIVE [facility] Comment on above: Performed By: #### D RUGRPD, ERUR, PREGU #### [facility] [address] [place] [address] Dr. Manjinder Forman THC Negative Normal NEGATIVE [facility] Comment on above: Performed By: #### D RUGRPD, ERUR, PREGU #### [facility] [address] [place] [address] Dr. Manjinder Forman ER URINE PROFILEon 3 Bilirubin Ql (U) Negative Normal NEGATIVE [facility] Comment on above: Performed By: #### D RUGRPD, ERUR, PREGU #### [facility] [address] [place] [address] Dr. Manjinder Forman Clarity (U) CLEAR Normal CLEAR [facility] Comment on above: Performed By: #### D RUGRPD, ERUR, PREGU #### [facility] [address] [place] [address] Dr. Manjinder Forman Color (U) LT. YELLOW Normal YELLOW [facility] Comment on above: Performed By: #### D RUGRPD, ERUR, PREGU #### [facility] [address] [place] [address] Dr. Manjinder HARTMANNAHElsie A micrscopic examina tion will be performed if indicated. Normal [facility] Comment on above: Performed By: #### D RUGRPD, ERUR, PREGU #### [facility] [address] [place] [address] Dr. Manjinder Forman Glucose Ql (U) Negative Normal NEGATIVE [facility] Comment on above: Performed By: #### D RUGRPD, ERUR, PREGU #### [facility] [address] [place] [address] [address] Manjinder Forman Hemoglobin Ql (U) Negative Normal NEGATIVE [facility] Comment on above: Performed By: #### D RUGRPD, ERUR, PREGU #### [facility] [address] [place] [address] [address] Manjinder Forman Ketones Ql (U) Negative Normal NEGATIVE [facility] Comment on above: Performed By: #### D RUGRPD, ERUR, PREGU #### [facility] [address] [place] [address] [address] Manjinder Forman LEUKOCYTES Negative Normal NEGATIVE [facility] Comment on above: Performed By: #### D RUGRPD, ERUR, PREGU #### [facility] [address] [place] [address] [address] Manjinder Forman Nitrite Ql (U) Negative Normal NEGATIVE [facility] Comment on above: Performed By: #### D RUGRPD, ERUR, PREGU #### [facility] [address] [place] [address] [address] Manjinder Forman pH (U) 7.0 [pH] Normal 5-9 [facility] Comment on above: Performed By: #### D RUGRPD, ERUR, PREGU #### [facility] [address] [place] [address] [address] Manjinder Forman SPEC GRAVITY <=1.005 Abnormal 1.005-<=1. 025 [facility] Comment on above: Performed By: #### D RUGRPD, ERUR, PREGU #### [facility] [address] [place] [address] [address] Manjinder Forman UA PROTEIN Negative Normal NEGATIVE/ TRACE [facility] Comment on above: Performed By: #### D RUGRPD, ERUR, PREGU #### [facility] [address] [place] [address] [address] Manjinder Forman UR MICRO IND NOT INDICATED Normal [facility] Comment on above: Performed By: #### D RUGRPD, ERUR, PREGU #### [facility] [address] [place] [address] Dr. Manjinder Forman Urobilinogen Qn (U) 0.2 {Gabi'U}/dL Normal 0.2 - 1.0 [facility] Comment on above: Performed By: #### D RUGRPD, ERUR, PREGU #### [facility] [address] [place] [address] Dr. Manjinder Forman URon 02-09-2023 , QUAL Negative Normal NEGATIVE [facility] Comment on above: Performed By: #### D RUGRPD, ERUR, PREGU #### [facility] [address] [place] [address] Dr. Manjinder Forman PROF 14(COMP METB)on 023 Albumin [Mass/Vol] 3.8 g/dL Normal 3.4-5.0 [facility] Comment on above: Performed By: #### H RON, CMP #### [facility] [address] [place] [address] Dr. Manjinder Forman Albumin/Globulin [Mass ratio] 1.2 {ratio} Normal [facility] Comment on above: Performed By: #### H RON, CMP #### [facility] [address] [place] [address] Dr. Manjinder Forman ALP [Catalytic activity/Vol] 87 U/L Normal 46-116 [facility] Comment on above: Performed By: #### H JUANPN, CMP #### [facility] [address] [place] [address] Dr. Manjinder Forman ALT [Catalytic activity/Vol] 31 U/L Normal 14-59 [facility] Comment on above: Performed By: #### H JUANPN, CMP #### [facility] [address] [place] [address] Dr. Manjinder Forman Anion gap [Moles/Vol] 21.4 mmol/L Normal [facility] Comment on above: Performed By: #### H JUANPN, CMP #### [facility] [address] [place] [address] Dr. Manjinder Forman AST [Catalytic activity/Vol] 24 U/L Normal 15-37 [facility] Comment on above: Performed By: #### H JUANPN, CMP #### [facility] [address] [address] [address] Manjinder Forman Bilirubin [Mass/Vol] 0.3 mg/dL Normal 0.2-1.0 [facility] Comment on above: Performed By: #### H STROPN, CMP #### [facility] [address] [address] [address] Manjinder Forman Calcium [Mass/Vol] 8.9 mg/dL Normal 8.5-10.1 [facility] Comment on above: Performed By: #### H STROPN, CMP #### [facility] [address] [place] [address] Dr. Manjinder Forman Chloride [Moles/Vol] 105 mmol/L Normal 98-107 [facility] Comment on above: Performed By: #### H STROPN, CMP #### [facility] [address] [place] [address] Dr. Manjinder Forman CO2 [Moles/Vol] 19.1 mmol/L Critically low 21.0-32.0 [facility] Comment on above: Performed By: #### H STROPN, CMP #### [facility] [address] [place] [address] Dr. Manjinder Forman Creatinine [Mass/Vol] 0.81 mg/dL Normal 0.55-1.02 [facility] Comment on above: Performed By: #### H STROPN, CMP #### [facility] [address] [place] [address] Dr. Manjinder Forman EGFR-AF RWANDAN >60 Normal >=60 [facility] Comment on above: Performed By: #### H STROPN, CMP #### [facility] [address] [place] [address] Dr. Manjinder Forman EGFR-NON AF RWANDAN >60 Normal >=60 [facility] Comment on above: Performed By: #### H STROPN, CMP #### [facility] [address] [place] [address] Dr. Manjinder Forman Globulin (S) [Mass/Vol] 3.1 g/dL Normal [facility] Comment on above: Performed By: #### H RON, CMP #### [facility] [address] [address] [address] Manjinder Forman Glucose [Mass/Vol] 103 mg/dL Normal 74-106 [facility] Comment on above: Performed By: #### H RON, CMP #### [facility] [address] [address] [address] Manjinder Forman Potassium [Moles/Vol] 3.5 mmol/L Normal 3.5-5.1 [facility] Comment on above: Performed By: #### H RON, CMP #### [facility] [address] [place] [address] Dr. Manjinder Forman Protein [Mass/Vol] 6.9 g/dL Normal 6.4-8.2 [facility] Comment on above: Performed By: #### H RON, CMP #### [facility] [address] [place] [address] Dr. Manjinder Forman Sodium [Moles/Vol] 142 mmol/L Normal 136-145 [facility] Comment on above: Performed By: #### H RON, CMP #### [facility] [address] [place] [address] Dr. Manjinder Forman Urea nitrogen [Mass/Vol] 12.0 mg/dL Normal 7.0-18.0 [facility] Comment on above: Performed By: #### H RON, CMP #### [facility] [address] [place] [address] Dr. Manjinder Forman Urea nitrogen/Creatinin e [Mass ratio] 14.8 mg/mg Normal [facility] Comment on above: Performed By: #### H RON, CMP #### [facility] [address] [place] [address] Dr. Manjinder Forman Estradiolon 01-01-2023 Estradiol 72.1 pg/mL 27 - 314 pg/mL [facility] Comment on above: FEMALES: Normally menstruating Luteal phase 33-298 Follicular phase 27-156 Midcycle phase 48-314 Postmenopausal (untreated) 5-50 Fulvestrant treatment will show an increased estradiol concentration with this methodology. Alternate methodologies are available upon request. Follicle Stimulating Hormone on 01-01-2023 FSH 64.8 High [facility] Comment on above: Reference Range: Male: 1.5-12.4 Ovulating Female: Follicular Phase 3.5-12.5 Ovulation Phase 4.7-21.5 Luteal Phase 1.7-7.7 Postmenopausal Female: 25.8-134.8 Interpretation and review of laboratory results Abnormal [facility] Luteinizing Hormoneon 2022 LH 40.9 [facility] Comment on above: Reference Range: Male: 1.7-8.6 Ovulating Female: Follicular Phase 2.4-12.6 Ovulation Phase 14.0-95.6 Luteal Phase 1.0-11.4 Postmenopausal Female: 7.7-58.5 No Panel Informationon 01-01 [facility] Vaginitis DNA Probeon 2022 Mary Species, DNA Probe Negative NEGATIVE [facility] Comment on above: for Mary sp. Method of testing is a DNA probe intended for detection and identification of Mary species, Gardnerella vaginalis, and Trichomonas vaginalis nucleic acid in vaginal fluid specimens from patients with symptoms of vaginitis/vaginosis. Gardnerella Vaginalis, DNA Probe Negative NEGATIVE [facility] Comment on above: for Gardnerella vagi nalis Source .VAGINAL SWAB [facility] Trichomonas Vaginalis DNA Negative NEGATIVE [facility] Comment on above: for Trichomonas Vagi nalis [facility] CITRATE URINE 24HRon 1211-2 022 Citric Acid, U, 24hr 292 mg/24 hr Critically low 320-1240 [facility] Comment on above: Result Comment: This test was developed and its performance characteristics determined by [employer]. It has not been cleared or approved by the Food and Drug Administration. Performed By: #### D DIM #### [facility] [address] [address] [address] Manjinder Forman Citric Acid, Urine 136 mg/L Normal Undefined [facility] Comment on above: Performed By: #### D DIM #### [facility] [address] [address] [address] Manjinder Forman OXALATE 24HR URINEon 09-05- 022 Oxalates, Urine 6 mg/L Normal Undefined [facility] Comment on above: Performed By: #### H STROPN, CMP #### [facility] [address] [place] [address] Dr. Manjinder Forman Oxalates, Urine 24hr 13 mg/24 hr Normal 4-31 [facility] Comment on above: Performed By: #### H STROPN, CMP #### [facility] [address] [place] [address] Dr. Manjinder Forman MAGNESIUM 24HR URINEon 09-04 Magnesium 24hr Urine 47.3 mg/24 hr Normal 12.0-293.0 [facility] Comment on above: Performed By: #### N A24U, [id number] #### [facility] [address] [place] [address] Dr. Manjinder Forman Magnesium UR 2.2 mg/dL Normal Not Estab. [facility] Comment on above: Performed By: #### N A24U, [id number] #### [facility] [address] [place] [address] Dr. Manjinder Forman PHOSPHORUS 24HR URINEon Phosphorus, Urine 30.2 mg/dL Normal Not Estab. [facility] [place] Comment on above: Performed By: #### H STROPN, CMP #### [facility] [address] [place] [address] Dr. Manjinder Forman Phosphorus, Urine 24hr 649 mg/24 hr Normal 261-1078 [facility] Comment on above: Performed By: #### H STROPN, CMP #### [facility] [address] [place] [address] Dr. Manjinder Forman PTH INTACTon 09-04-2022 PTH, Intact 32 pg/mL Normal 15-65 [facility] Comment on above: Performed By: #### D DIM #### [facility] [address] [place] [address] Dr. Manjinder Forman URIC ACID 24 HR URINEon 12- Uric Acid, Urine 18.6 mg/dL Normal Not Estab. [facility] Comment on above: Performed By: #### D DIM #### [facility] [address] [place] [address] Dr. Manjinder Forman Uric Acid, Urine 24hr 399.9 mg/24 hr Normal 173.7-902. 1 [facility] Comment on above: Performed By: #### D DIM #### [facility] [address] [place] [address] Dr. Manjinder Forman BUNon 09-03-2022 Urea nitrogen [Mass/Vol] 8.0 mg/dL Normal 7.0-18.0 [facility] Comment on above: Performed By: #### H RON, CMP #### [facility] [address] [place] [address] Dr. Manjinder Forman CALCIUMon 09-03-2022 Calcium [Mass/Vol] 9.0 mg/dL Normal 8.5-10.1 [facility] Comment on above: Performed By: #### H RON, CMP #### [facility] [address] [place] [address] Dr. Manjinder Forman CALCIUM 24 HR URINEon 2021 CALC, 24 HR UR 107.5 mg/24 hr Normal 100.0-300. 0 [facility] Comment on above: Performed By: #### D DIM #### [facility] [address] [place] [place] [address] Dr. Manjinder Forman UR CALCIUM 5.0 mg/dL Critically low 5.1-21.0 [facility] Comment on above: Performed By: #### D DIM #### [facility] [address] [place] [address] Dr. Manjinder Forman CHLORIDEon 09-03-2022 Chloride [Moles/Vol] 102 mmol/L Normal 98-107 [facility] Comment on above: Performed By: #### D DIM #### [facility] [address] [place] [address] Dr. Manjinder Forman CO2on 09-03-2022 CO2 [Moles/Vol] 29.7 mmol/L Normal 21.0-32.0 [facility] Comment on above: Performed By: #### D DIM #### [facility] [address] [place] [address] Dr. Manjinder Forman CREA 24 HR URINEon 2 CREA, 24 HR UR 760.24 mg/24 hr Critically low 800.00-1 ,8 00.00 [facility] Comment on above: Performed By: #### N A24U, [id number] #### [facility] [address] [place] [address] Dr. Manjinder Forman UR TOT VOL 2150 ml/24 HR Normal [facility] Comment on above: Performed By: #### N A24U, [id number] #### [facility] [address] [place] [address] Dr. Manjinder Forman Performed By: #### D DIM #### [facility] [address] [place] [address] Dr. Manjinder Forman URINE CREAT 35.36 mg/dL Normal 20.00-300. 00 [facility] Comment on above: Performed By: #### N A24U, [id number] #### [facility] [address] [place] [address] Dr. Manjinder Forman CREATININEon 09-03-2022 Creatinine [Mass/Vol] 0.87 mg/dL Normal 0.55-1.02 [facility] Comment on above: Performed By: #### H JUANPN, CMP #### [facility] [address] [place] [address] Dr. Manjinder Forman EGFR-AF RWANDAN >60 Normal >=60 [facility] Comment on above: Performed By: #### H JUANPN, CMP #### [facility] [address] [place] [address] Dr. Manjinder Forman EGFR-NON AF RWANDAN >60 Normal >=60 [facility] Comment on above: Performed By: #### H JUANPN, CMP #### [facility] [address] [place] [address] Dr. Manjinder Forman NAon 09-03-2022 Sodium [Moles/Vol] 137 mmol/L Normal 136-145 [facility] Comment on above: Performed By: #### H RON, CMP #### [facility] [address] [place] [address] Dr. Manjinder Forman POTASSIUMon 09-03-2022 Potassium [Moles/Vol] 4.1 mmol/L Normal 3.5-5.1 [facility] Comment on above: Performed By: #### H RON, CMP #### [facility] [address] [place] [address] Dr. Manjinder Forman SODIUM 24 HR URINEon 022 NA, 24 HR UR 153 mmol/24 hr Normal 40-220 [facility] Comment on above: Performed By: #### N A24U, [id number] #### [facility] [address] [place] [address] Dr. Manjinder Forman Sodium (U) [Moles/Vol] 71 mmol/L Normal 30-90 [facility] Comment on above: Performed By: #### N A24U, [id number] #### [facility] [address] [place] [address] Dr. Manjinder Forman URIC ACID SERUMon 09-03-2022 Urate [Mass/Vol] 5.1 mg/dL Normal 2.6-6.0 [facility] Comment on above: Performed By: #### Leanne VELASQUEZ, CMP #### [facility] [address] [place] [address] Dr. Manjinder Forman CULTURE URINEon 08-02-2022 CULTURE [...] Trimethoprim/Sulfamethoxazol e <=20 S F Normal [facility] Comment on above: Performed By: #### N A24U, [id number] #### [facility] [address] [place] [address] Dr. Manjinder Forman LIPID PROFILEon 07-30-2022 CHOL-HDL RATIO NORM SEE BELOW Normal [facility] Comment on above: Result Comment: 3.3 - 4.4 LOW RISK 4.4 - 7.1 AVERAGE RISK 7.1 - 11.0 MODERATE RISK >11.0 HIGH RISK Performed By: #### N A24U, [id number] #### [facility] [address] [place] [address] Dr. Manjinder Forman Cholesterol [Mass/Vol] 220 mg/dL Critically high <=200 [facility] Comment on above: Performed By: #### N A24U, [id number] #### [facility] [address] [place] [address] Dr. Manjinder Forman Cholesterol in HDL [Mass/Vol] 89 mg/dL Critically high 40-60 [facility] Comment on above: Performed By: #### N A24U, [id number] #### [facility] [address] [address] [address] Manjinder Forman Cholesterol in LDL [Mass/Vol] 117.6 mg/dL Normal [facility] Comment on above: Performed By: #### N A24U, [id number] #### [facility] [address] [place] [address] Dr. Manjinder Forman Cholesterol.total/ Cholesterol in HDL [Mass ratio] 2.5 {ratio} Normal [facility] Comment on above: Performed By: #### N A24U, [id number] #### [facility] [address] [address] [address] Manjinder Forman HDL NORMAL > or = 60 mg/dl - LO W CARDIOVASCULAR RISK <40 mg/dl - HIGH CARDIOVASCULAR RISK Normal [facility] Comment on above: Performed By: #### N A24U, [id number] #### [facility] [address] [address] [address] Manjinder Forman LDL CALC NORMAL SEE BELOW Normal [facility] Comment on above: Result Comment: <100 mg/dl OPTIMAL 100 - 129 mg/dl NEAR OR ABOVE OPTIMAL 130 - 159 mg/dl BORDERLINE HIGH 160 - 189 mg/dl HIGH >190 mg/dl VERY HIGH Performed By: #### N A24U, [id number] #### [facility] [address] [place] [address] Dr. Manjinder Forman Triglyceride [Mass/Vol] 67 mg/dL Normal <=150 [facility] Comment on above: Performed By: #### N A24U, [id number] #### [facility] [address] [place] [address] Dr. Manjinder Forman VLDL CALC 13.4 mg/dL Normal [facility] Comment on above: Performed By: #### N A24U, [id number] #### [facility] [address] [place] [address] Dr. Manjinder Forman UA RANDOM W/MICROSCOPICon BACTERIA NONE SEEN Normal NONE SEEN [facility] Comment on above: Performed By: #### N A24U, [id number] #### [facility] [address] [place] [address] Dr. Manjinder Forman Bilirubin Ql (U) Negative Normal NEGATIVE [facility] Comment on above: Performed By: #### N A24U, [id number] #### [facility] [address] [place] [address] Dr. Manjinder Forman CAST NONE SEEN Normal NONE SEEN [facility] Comment on above: Performed By: #### N A24U, [id number] #### [facility] [address] [place] [address] Dr. Manjinder Forman Clarity (U) CLEAR Normal CLEAR [facility] Comment on above: Performed By: #### N A24U, [id number] #### [facility] [address] [place] [address] Dr. Manjinder Forman Color (U) LT. YELLOW Normal YELLOW [facility] Comment on above: Performed By: #### N A24U, [id number] #### [facility] [address] [place] [address] Dr. Manjinder Forman Crystals LM Nom (Urine sed) NONE SEEN Normal NONE SEEN [facility] Comment on above: Performed By: #### N A24U, [id number] #### [facility] [address] [place] [address] Dr. Manjinder Forman Epithelial cells LM Ql (Urine sed) RARE Normal NONE SEEN /RARE [facility] Comment on above: Performed By: #### N A24U, [id number] #### [facility] [address] [place] [address] Dr. Manjinder Forman Glucose Ql (U) Negative Normal NEGATIVE [facility] Comment on above: Performed By: #### N A24U, [id number] #### [facility] [address] [place] [address] Dr. Manjinder Forman Hemoglobin Ql (U) Negative Normal NEGATIVE [facility] [place] Comment on above: Performed By: #### N A24U, [id number] #### [facility] [address] [place] [address] Dr. Manjinder Forman Ketones Ql (U) Negative Normal NEGATIVE [facility] Comment on above: Performed By: #### N A24U, [id number] #### [facility] [address] [place] [address] Dr. Manjinder Forman LEUKOCYTES Negative Normal NEGATIVE [facility] Comment on above: Performed By: #### N A24U, [id number] #### [facility] [address] [place] [address] Dr. Manjinder Forman MUCOUS NONE SEEN Normal NONE SEEN [facility] Comment on above: Performed By: #### N A24U, [id number] #### [facility] [address] [address] [address] Manjinder Forman Nitrite Ql (U) Negative Normal NEGATIVE [facility] Comment on above: Performed By: #### N A24U, [id number] #### [facility] [address] [place] [address] Dr. Manjinder Forman pH (U) 7.0 [pH] Normal 5-9 [facility] Comment on above: Performed By: #### N A24U, [id number] #### [facility] [address] [place] [address] Dr. Manjinder Forman RBC 0-2 Normal 0-2 [facility] Comment on above: Performed By: #### N A24U, [id number] #### [facility] [address] [place] [address] Dr. Manjinder Forman SPEC GRAVITY 1.010 Normal 1.005-<=1. 025 [facility] Comment on above: Performed By: #### N A24U, [id number] #### [facility] [address] [place] [address] Dr. Manjinder Forman UA PROTEIN Negative Normal NEGATIVE/ TRACE [facility] Comment on above: Performed By: #### N A24U, [id number] #### [facility] [address] [place] [address] Dr. Manjinder Forman Urobilinogen Qn (U) 0.2 {Gabi'U}/dL Normal 0.2 - 1.0 [facility] Comment on above: Performed By: #### N A24U, [id number] #### [facility] [address] [place] [address] Dr. Manjinder Forman WBC NONE SEEN Normal NONE SEEN [facility] Comment on above: Performed By: #### N A24U, [id number] #### [facility] [address] [place] [address] Dr. Manjinder Forman Quick Strepon 07-18-2022 S. pyogenes Org specific cx Ql (Throat) Negative [employer] [facility] [employer] Other Quick Strep [employer] [facility] [employer] Other CBC AUTO DIFFon 07-06-2022 BASO # 0.0 103/ul Normal 0.0-0.1 [facility] Comment on above: Performed By: #### H STROPN, CMP #### [facility] [address] [place] [address] Dr. Manjinder Forman Basophils/100 WBC (Bld) 0.0 % Critically low 0.2-2.0 [facility] Comment on above: Performed By: #### H STROPN, CMP #### [facility] [address] [place] [address] Dr. Manjinder Forman EO # 0.0 103/ul Normal 0.0-0.7 [facility] Comment on above: Performed By: #### H STROPN, CMP #### [facility] [address] [place] [address] Dr. Manjinder Forman Eosinophils/100 WBC (Bld) 0.0 % Critically low 0.9-7.0 [facility] Comment on above: Performed By: #### H STROPN, CMP #### [facility] [address] [place] [address] Dr. Manjinder Forman Erythrocyte distribution width (RBC) [Ratio] 12.0 % Normal 11.0-15.0 [facility] Comment on above: Performed By: #### H STROPN, CMP #### [facility] [address] [place] [address] Dr. Manjinder Forman Hematocrit (Bld) [Volume fraction] 38.0 % Normal 36.0-48.0 [facility] Comment on above: Performed By: #### H STROPN, CMP #### [facility] [address] [place] [address] Dr. Manjinder Forman Hemoglobin (Bld) [Mass/Vol] 12.2 g/dL Normal 12.0-16.0 [facility] Comment on above: Performed By: #### H STROPN, CMP #### [facility] [address] [address] [address] Manjinder Forman IG # 0.01 10e3/ul Normal 0.00-0.03 [facility] Comment on above: Performed By: #### H RON, CMP #### [facility] [address] [place] [address] Dr. Manjinder Forman IG % 0.2 % Normal 0.0-0.5 [facility] Comment on above: Performed By: #### H JUANPN, CMP #### [facility] [address] [place] [address] Dr. Manjinder Forman LYMPH # 0.5 103/ul Critically low 1.2-3.8 [facility] Comment on above: Performed By: #### H RON, CMP #### [facility] [address] [place] [address] Dr. Manjinder Forman Lymphocytes/100 WBC (Bld) 11.8 % Critically low 20.5-60.0 [facility] Comment on above: Performed By: #### H RON, CMP #### [facility] [address] [place] [address] Dr. Manjinder Forman MANUAL DIFF REQ NO Normal [facility] Comment on above: Performed By: #### H RON, CMP #### [facility] [address] [place] [address] Dr. Manjinder Forman MCH (RBC) [Entitic mass] 30.4 pg Normal 26.7-34.0 [facility] Comment on above: Performed By: #### H RON, CMP #### [facility] [address] [place] [address] Dr. Manjinder Forman MCHC (RBC) [Mass/Vol] 32.1 g/dL Normal 29.9-35.2 [facility] Comment on above: Performed By: #### H RON, CMP #### [facility] [address] [place] [address] Dr. Manjinder Forman MCV (RBC) [Entitic vol] 94.8 fL Normal 81.0-99.0 [facility] Comment on above: Performed By: #### H RON, CMP #### [facility] [address] [address] [address] Manjinder Forman MONO # 0.2 103/ul Critically low 0.3-0.8 [facility] Comment on above: Performed By: #### H STROPN, CMP #### [facility] [address] [address] [address] Manjinder Forman Monocytes/100 WBC (Bld) 3.7 % Normal 1.7-12.0 [facility] Comment on above: Performed By: #### H STROPN, CMP #### [facility] [address] [address] [address] Manjinder Forman NEUT # 3.4 103/ul Normal 1.4-6.5 [facility] Comment on above: Performed By: #### H STROPN, CMP #### [facility] [address] [place] [address] Dr. Manjinder Forman Neutrophils/100 WBC (Bld) 84.3 % Critically high 43.0-75.0 [facility] Comment on above: Performed By: #### H STROPN, CMP #### [facility] [address] [address] [address] Manjinder Forman Platelet mean volume (Bld) [Entitic vol] 11.1 fL Normal 9.5-13.5 [facility] Comment on above: Performed By: #### H STROPN, CMP #### [facility] [address] [address] [address] Manjinder Forman PLT 143 103/ul Critically low 150-450 [facility] Comment on above: Performed By: #### H STROPN, CMP #### [facility] [address] [address] [address] Manjinder Forman RBC 4.01 106/ul Critically low 4.20-5.40 [facility] Comment on above: Performed By: #### H STROPN, CMP #### [facility] [address] [address] [address] Manjinder Forman WBC 4.1 103/ul Normal 4.0-11.0 [facility] Comment on above: Performed By: #### H STROPN, CMP #### [facility] [address] [place] [address] Dr. Manjinder Forman PROF 14(COMP METB)on 022 Albumin [Mass/Vol] 3.3 g/dL Critically low 3.4-5.0 [facility] Comment on above: Performed By: #### N A24U, [id number] #### [facility] [address] [place] [address] Dr. Manjinder Forman Albumin/Globulin [Mass ratio] 0.9 {ratio} Normal [facility] Comment on above: Performed By: #### N A24U, [id number] #### [facility] [address] [place] [address] Dr. Manjinder Forman ALP [Catalytic activity/Vol] 75 U/L Normal 46-116 [facility] Comment on above: Performed By: #### N A24U, [id number] #### [facility] [address] [place] [address] Dr. Manjinder Forman ALT [Catalytic activity/Vol] 39 U/L Normal 14-59 [facility] Comment on above: Performed By: #### N A24U, [id number] #### [facility] [address] [place] [address] Dr. Manjinder Forman Anion gap [Moles/Vol] 13.9 mmol/L Normal [facility] Comment on above: Performed By: #### N A24U, [id number] #### [facility] [address] [place] [address] Dr. Manjinder Forman AST [Catalytic activity/Vol] 25 U/L Normal 15-37 [facility] Comment on above: Performed By: #### N A24U, [id number] #### [facility] [address] [place] [address] Dr. Manjinder Forman Bilirubin [Mass/Vol] 0.3 mg/dL Normal 0.2-1.0 [facility] Comment on above: Performed By: #### N A24U, [id number] #### [facility] [address] [address] [address] Manjinder Forman Calcium [Mass/Vol] 8.3 mg/dL Critically low 8.5-10.1 [facility] Comment on above: Performed By: #### N A24U, [id number] #### [facility] [address] [address] [address] Manjinder Forman Chloride [Moles/Vol] 105 mmol/L Normal 98-107 [facility] Comment on above: Performed By: #### N A24U, [id number] #### [facility] [address] [address] [address] Manjinder Forman CO2 [Moles/Vol] 22.3 mmol/L Normal 21.0-32.0 [facility] Comment on above: Performed By: #### N A24U, [id number] #### [facility] [address] [place] [address] Dr. Manjinder Forman Creatinine [Mass/Vol] 0.76 mg/dL Normal 0.55-1.02 [facility] Comment on above: Performed By: #### N A24U, [id number] #### [facility] [address] [address] [address] Manjinder Forman EGFR-AF RWANDAN >60 Normal >=60 [facility] Comment on above: Performed By: #### N A24U, [id number] #### [facility] [address] [place] [address] Dr. Manjinder Forman EGFR-NON AF RWANDAN >60 Normal >=60 [facility] Comment on above: Performed By: #### N A24U, [id number] #### [facility] [address] [address] [address] Manjinder Forman Globulin (S) [Mass/Vol] 3.6 g/dL Normal [facility] Comment on above: Performed By: #### N A24U, [id number] #### [facility] [address] [address] [address] Manjinder Forman Glucose [Mass/Vol] 125 mg/dL Critically high 74-106 [facility] Comment on above: Performed By: #### N A24U, [id number] #### [facility] [address] [place] [address] Dr. Manjinder Forman Potassium [Moles/Vol] 4.2 mmol/L Normal 3.5-5.1 [facility] Comment on above: Performed By: #### N A24U, [id number] #### [facility] [address] [place] [address] Dr. Manjinder Forman Protein [Mass/Vol] 6.9 g/dL Normal 6.4-8.2 [facility] Comment on above: Performed By: #### N A24U, [id number] #### [facility] [address] [place] [address] Dr. Manjinder Forman Sodium [Moles/Vol] 137 mmol/L Normal 136-145 [facility] Comment on above: Performed By: #### N A24U, [id number] #### [facility] [address] [place] [address] Dr. Manjinder Forman Urea nitrogen [Mass/Vol] 12.0 mg/dL Normal 7.0-18.0 [facility] Comment on above: Performed By: #### N A24U, [id number] #### [facility] [address] [place] [address] Dr. Manjinder Forman Urea nitrogen/Creatinin e [Mass ratio] 15.8 mg/mg Normal [facility] Comment on above: Performed By: #### N A24U, [id number] #### [facility] [address] [place] [address] Dr. Manjinder Forman CBC AUTO DIFFon 07-05-2022 BASO # 0.0 103/ul Normal 0.0-0.1 [facility] Comment on above: Performed By: #### N A24U, [id number] #### [facility] [address] [place] [address] Dr. Manjinder Forman Basophils/100 WBC (Bld) 0.2 % Normal 0.2-2.0 [facility] Comment on above: Performed By: #### N A24U, [id number] #### [facility] [address] [place] [address] Dr. Manjinder Forman EO # 0.0 103/ul Normal 0.0-0.7 [facility] Comment on above: Performed By: #### N A24U, [id number] #### [facility] [address] [place] [address] Dr. Manjinder Forman Eosinophils/100 WBC (Bld) 0.2 % Critically low 0.9-7.0 [facility] Comment on above: Performed By: #### N A24U, [id number] #### [facility] [address] [place] [address] Dr. Manjinder Forman Erythrocyte distribution width (RBC) [Ratio] 11.9 % Normal 11.0-15.0 [facility] Comment on above: Performed By: #### N A24U, [id number] #### [facility] [address] [place] [address] Dr. Manjinder Forman Hematocrit (Bld) [Volume fraction] 39.1 % Normal 36.0-48.0 [facility] Comment on above: Performed By: #### N A24U, [id number] #### [facility] [address] [place] [address] Dr. Manjinder Forman Hemoglobin (Bld) [Mass/Vol] 12.7 g/dL Normal 12.0-16.0 [facility] Comment on above: Performed By: #### N A24U, [id number] #### [facility] [address] [place] [address] Dr. Manjinder Forman IG # 0.01 10e3/ul Normal 0.00-0.03 [facility] Comment on above: Performed By: #### N A24U, [id number] #### [facility] [address] [place] [address] Dr. Manjinder Forman IG % 0.2 % Normal 0.0-0.5 [facility] Comment on above: Performed By: #### N A24U, [id number] #### [facility] [address] [place] [address] Dr. Manjinder Forman LYMPH # 1.1 103/ul Critically low 1.2-3.8 [facility] Comment on above: Performed By: #### N A24U, [id number] #### [facility] [address] [place] [address] Dr. Manjinder Forman Lymphocytes/100 WBC (Bld) 21.0 % Normal 20.5-60.0 [facility] Comment on above: Performed By: #### N A24U, [id number] #### [facility] [address] [place] [address] Dr. Manjinder Forman MANUAL DIFF REQ NO Normal [facility] Comment on above: Performed By: #### N A24U, [id number] #### [facility] [address] [place] [address] Dr. Manjinder Forman MCH (RBC) [Entitic mass] 30.7 pg Normal 26.7-34.0 [facility] Comment on above: Performed By: #### N A24U, [id number] #### [facility] [address] [place] [address] Dr. Manjinder Forman MCHC (RBC) [Mass/Vol] 32.5 g/dL Normal 29.9-35.2 [facility] Comment on above: Performed By: #### N A24U, [id number] #### [facility] [address] [place] [address] Dr. Manjinder Forman MCV (RBC) [Entitic vol] 94.4 fL Normal 81.0-99.0 [facility] Comment on above: Performed By: #### N A24U, [id number] #### [facility] [address] [place] [address] Dr. Manjinder Forman MONO # 0.8 103/ul Normal 0.3-0.8 [facility] Comment on above: Performed By: #### N A24U, [id number] #### [facility] [address] [place] [address] Dr. Manjinder Forman Monocytes/100 WBC (Bld) 14.9 % Critically high 1.7-12.0 [facility] Comment on above: Performed By: #### N A24U, [id number] #### [facility] [address] [place] [place] [address] Dr. Manjinder Forman NEUT # 3.3 103/ul Normal 1.4-6.5 [facility] Comment on above: Performed By: #### N A24U, [id number] #### [facility] [address] [place] [address] Dr. Manjinder Forman Neutrophils/100 WBC (Bld) 63.5 % Normal 43.0-75.0 [facility] Comment on above: Performed By: #### N A24U, [id number] #### [facility] [address] [place] [address] Dr. Manjinder Forman Platelet mean volume (Bld) [Entitic vol] 11.1 fL Normal 9.5-13.5 [facility] Comment on above: Performed By: #### N A24U, [id number] #### [facility] [address] [place] [address] Dr. Manjinder Forman PLT 150 103/ul Normal 150-450 [facility] Comment on above: Performed By: #### N A24U, [id number] #### [facility] [address] [place] [address] Dr. Manjinder Forman RBC 4.14 106/ul Critically low 4.20-5.40 [facility] Comment on above: Performed By: #### N A24U, [id number] #### [facility] [address] [place] [address] Dr. Manjinder Forman WBC 5.2 103/ul Normal 4.0-11.0 [facility] Comment on above: Performed By: #### N A24U, [id number] #### [facility] [address] [place] [address] Dr. Manjinder Forman D-DIMERon 07-05-2022 D-DIMER 0.21 mg/L FEU Normal <=0.59 [facility] Comment on above: Performed By: #### D DIM #### [facility] [address] [place] [address] Dr. Manjinder Forman D-DIMER COMMENTS SEE BELOW Normal [facility] Comment on above: Result Comment: Incr [...] hospitalization. Performed By: #### D DIM #### [facility] [address] [place] [address] Dr. Manjinder Forman LACTATE/LACTIC ACIDon 2021 Lactate [Moles/Vol] 0.6 mmol/L Normal 0.4-1.9 [facility] Comment on above: Performed By: #### H JUANPN, CMP #### [facility] [address] [place] [address] Dr. Manjinder Forman PROF 14(COMP METB)on 022 Albumin [Mass/Vol] 3.4 g/dL Normal 3.4-5.0 [facility] Comment on above: Performed By: #### H JUANPN, CMP #### [facility] [address] [place] [address] Dr. Manjinder Forman Albumin/Globulin [Mass ratio] 1.0 {ratio} Normal [facility] Comment on above: Performed By: #### H JUANPN, CMP #### [facility] [address] [place] [address] Dr. Manjinder Forman ALP [Catalytic activity/Vol] 81 U/L Normal 46-116 [facility] Comment on above: Performed By: #### H STROPN, CMP #### [facility] [address] [place] [address] Dr. Manjinder Forman ALT [Catalytic activity/Vol] 37 U/L Normal 14-59 [facility] Comment on above: Performed By: #### H STROPN, CMP #### [facility] [address] [address] [address] Manjinder Forman Anion gap [Moles/Vol] 10.9 mmol/L Normal [facility] Comment on above: Performed By: #### H STROPN, CMP #### [facility] [address] [address] [address] Manjinder Forman AST [Catalytic activity/Vol] 25 U/L Normal 15-37 [facility] Comment on above: Performed By: #### H STROPN, CMP #### [facility] [address] [address] [address] Manjinder Forman Bilirubin [Mass/Vol] 0.5 mg/dL Normal 0.2-1.0 [facility] Comment on above: Performed By: #### H STROPN, CMP #### [facility] [address] [address] [address] Manjinder Forman Calcium [Mass/Vol] 8.4 mg/dL Critically low 8.5-10.1 [facility] Comment on above: Performed By: #### H STROPN, CMP #### [facility] [address] [address] [address] Manjinder Forman Chloride [Moles/Vol] 102 mmol/L Normal 98-107 [facility] Comment on above: Performed By: #### H STROPN, CMP #### [facility] [address] [address] [address] Manjinder Forman CO2 [Moles/Vol] 26.1 mmol/L Normal 21.0-32.0 [facility] Comment on above: Performed By: #### H STROPN, CMP #### [facility] [address] [address] [address] Manjinder Forman Creatinine [Mass/Vol] 0.92 mg/dL Normal 0.55-1.02 [facility] Comment on above: Performed By: #### H STROPN, CMP #### [facility] [address] [address] [address] Manjinder Forman EGFR-AF RWANDAN >60 Normal >=60 [facility] Comment on above: Performed By: #### H STROPN, CMP #### [facility] [address] [address] [address] Manjinder Forman EGFR-NON AF RWANDAN >60 Normal >=60 [facility] Comment on above: Performed By: #### H STROPN, CMP #### [facility] [address] [address] [address] Manjinder Forman Globulin (S) [Mass/Vol] 3.5 g/dL Normal [facility] Comment on above: Performed By: #### H STROPN, CMP #### [facility] [address] [address] [address] Manjinder Forman Glucose [Mass/Vol] 104 mg/dL Normal 74-106 [facility] Comment on above: Performed By: #### H STROPN, CMP #### [facility] [address] [address] [address] Manjinder Forman Potassium [Moles/Vol] 4.0 mmol/L Normal 3.5-5.1 [facility] Comment on above: Performed By: #### H STROPN, CMP #### [facility] [address] [address] [address] Manjinder Forman Protein [Mass/Vol] 6.9 g/dL Normal 6.4-8.2 [facility] Comment on above: Performed By: #### H STROPN, CMP #### [facility] [address] [address] [address] Manjinder Forman Sodium [Moles/Vol] 135 mmol/L Critically low 136-145 [facility] Comment on above: Performed By: #### H STROPN, CMP #### [facility] [address] [address] [address] Manjinder Forman Urea nitrogen [Mass/Vol] 18.0 mg/dL Normal 7.0-18.0 [facility] Comment on above: Performed By: #### H STROPN, CMP #### [facility] [address] [address] [address] Manjinder Forman Urea nitrogen/Creatinin e [Mass ratio] 19.6 mg/mg Normal [facility] Comment on above: Performed By: #### H RON, CMP #### [facility] [address] [place] [address] Dr. Manjinder Forman TROPONIN, HIGH SENSITIVITYon 07-05-2022 HSTROP <4.0 Normal 4.0-51.3 [facility] Comment on above: Result Comment: CUT- OFF POINTS HAVE BEEN ESTABLISHED BASED ON THE FOURTH UNIVERSAL DEFINITIONS OF MYOCARDIAL INFARCTION. THE UPPER REFERENCE LIMIT (URL) OF TROPONIN, DEFINED THE 99TH PERCENTILE OF cTnI DISTRIBUTION IN A REFERENCE POPULATION, HAS BEEN CONFIRMED THE DECISION THRESHOLD FOR [place] DIAGNOSIS. Performed By: #### H RON, CMP #### [facility] [address] [place] [address] Dr. Manjinder Forman XR CHEST 1 Von [...] JANA MARTIN Date: 2022-07-05 20:24 Normal [facility] CBC AUTO DIFFon 07-04-2022 BASO # 0.0 103/ul Normal 0.0-0.1 [facility] Comment on above: Performed By: #### D DIM #### [facility] [address] [place] [address] Dr. Manjinder Forman Basophils/100 WBC (Bld) 0.2 % Normal 0.2-2.0 [facility] Comment on above: Performed By: #### D DIM #### [facility] [address] [place] [address] Dr. Manjinder Forman EO # 0.0 103/ul Normal 0.0-0.7 [facility] Comment on above: Performed By: #### D DIM #### [facility] [address] [place] [address] Dr. Manjinder Forman Eosinophils/100 WBC (Bld) 0.2 % Critically low 0.9-7.0 [facility] Comment on above: Performed By: #### D DIM #### [facility] [address] [place] [address] Dr. Manjinder Forman Erythrocyte distribution width (RBC) [Ratio] 12.2 % Normal 11.0-15.0 [facility] Comment on above: Performed By: #### D DIM #### [facility] [address] [place] [address] Dr. Manjinder Forman Hematocrit (Bld) [Volume fraction] 39.9 % Normal 36.0-48.0 [facility] Comment on above: Performed By: #### D DIM #### [facility] [address] [place] [address] Dr. Manjinder Forman Hemoglobin (Bld) [Mass/Vol] 12.9 g/dL Normal 12.0-16.0 [facility] Comment on above: Performed By: #### D DIM #### [facility] [address] [place] [address] Dr. Manjinder Forman IG # 0.02 10e3/ul Normal 0.00-0.03 [facility] Comment on above: Performed By: #### D DIM #### [facility] [address] [place] [address] Dr. Manjinder Forman IG % 0.4 % Normal 0.0-0.5 [facility] Comment on above: Performed By: #### D DIM #### [facility] [address] [place] [address] Dr. Manjinder Forman LYMPH # 1.1 103/ul Critically low 1.2-3.8 [facility] Comment on above: Performed By: #### D DIM #### [facility] [address] [place] [address] Dr. Manjinder Forman Lymphocytes/100 WBC (Bld) 21.4 % Normal 20.5-60.0 [facility] Comment on above: Performed By: #### D DIM #### [facility] [address] [place] [address] Dr. aMnjinder Forman MANUAL DIFF REQ NO Normal [facility] Comment on above: Performed By: #### D DIM #### [facility] [address] [address] [address] Manjinder Forman MCH (RBC) [Entitic mass] 30.6 pg Normal 26.7-34.0 [facility] Comment on above: Performed By: #### D DIM #### [facility] [address] [address] [address] Manjinder Forman MCHC (RBC) [Mass/Vol] 32.3 g/dL Normal 29.9-35.2 [facility] Comment on above: Performed By: #### D DIM #### [facility] [address] [address] [address] Manjinder Forman MCV (RBC) [Entitic vol] 94.8 fL Normal 81.0-99.0 [facility] Comment on above: Performed By: #### D DIM #### [facility] [address] [place] [address] Dr. Manjinder Froman MONO # 1.0 103/ul Critically high 0.3-0.8 [facility] Comment on above: Performed By: #### D DIM #### [facility] [address] [place] [address] Dr. Manjinder Forman Monocytes/100 WBC (Bld) 18.8 % Critically high 1.7-12.0 [facility] Comment on above: Performed By: #### D DIM #### [facility] [address] [place] [address] Dr. Mnajinder Forman NEUT # 3.1 103/ul Normal 1.4-6.5 [facility] Comment on above: Performed By: #### D DIM #### [facility] [address] [place] [address] Dr. Manjinder Forman Neutrophils/100 WBC (Bld) 59.0 % Normal 43.0-75.0 [facility] Comment on above: Performed By: #### D DIM #### [facility] [address] [place] [address] Dr. Manjinder Forman Platelet mean volume (Bld) [Entitic vol] 10.6 fL Normal 9.5-13.5 [facility] Comment on above: Performed By: #### D DIM #### [facility] [address] [place], [place] [address] Dr. Manjinder Forman PLT 184 103/ul Normal 150-450 [facility] Comment on above: Performed By: #### D DIM #### [facility] [address], [place] [address] Dr. Manjinder Forman RBC 4.21 106/ul Normal 4.20-5.40 [facility] Comment on above: Performed By: #### D DIM #### [facility] [address] [place], [place] [address] Dr. Manjinder Forman WBC 5.3 103/ul Normal 4.0-11.0 [facility] Comment on above: Performed By: #### D DIM #### [facility] [address] [place], [place] [address] ABD/PELVIS WO CONon [...] 1. Bilateral nonobstructing nephrolithiasis. Electronically authenticated by: CHIDINEAL MORALES Date: 2022-07-04 10:16 Normal [facility] Cov[facility] ([facility]on SARS-CoV-2 (COVID-19) RNA KEN+probe Ql (Unsp spec) Detected Critically abnormal NOT DETECTED [facility] Comment on above: Result Comment: This test is not yet approved or cleared by the [place] FDA. When there are no FDA-approved or cleared tests available, and other criteria are met, FDA can make tests available under an emergency access mechanism called an Emergency Use Authorization (EUA). The EUA for this test is supported by the [employer] of Health and Human Service's declaration that [...] Performed By: #### H STROPN, CMP #### [facility] [address] [place] [address] Dr. Manjinder Forman ER URINE PROFILEon 2 Bilirubin Ql (U) Negative Normal NEGATIVE [facility] Comment on above: Performed By: #### D DIM #### [facility] [address] [place] [address] Dr. Manjinder Forman Clarity (U) CLEAR Normal CLEAR [facility] Comment on above: Performed By: #### D DIM #### [facility] [address] [place] [address] Dr. Manjinder Forman Color (U) LT. YELLOW Normal YELLOW [facility] Comment on above: Performed By: #### D DIM #### [facility] [address] [place] [address] Dr. Manjinder Forman ERUAHD A micrscopic examina tion will be performed if indicated. Normal [facility] Comment on above: Performed By: #### D DIM #### [facility] [address] [place] [address] Dr. Manjinder Forman Glucose Ql (U) Negative Normal NEGATIVE [facility] Comment on above: Performed By: #### D DIM #### [facility] [address] [place] [address] Dr. Manjinder Forman Hemoglobin Ql (U) Negative Normal NEGATIVE [facility] Comment on above: Performed By: #### D DIM #### [facility] [address] [place] [address] Dr. Manjinder Forman Ketones Ql (U) Negative Normal NEGATIVE [facility] Comment on above: Performed By: #### D DIM #### [facility] [address] [address] [address] Manjinder Forman LEUKOCYTES Negative Normal NEGATIVE [facility] Comment on above: Performed By: #### D DIM #### [facility] [address] [place] [address] Dr. Manjinder Forman Nitrite Ql (U) Negative Normal NEGATIVE [facility] Comment on above: Performed By: #### D DIM #### [facility] [address] [place] [address] Dr. Manjinder Forman pH (U) 6.0 [pH] Normal 5-9 [facility] Comment on above: Performed By: #### D DIM #### [facility] [address] [place] [address] Dr. Manjinder Forman SPEC GRAVITY <=1.005 Abnormal 1.005-<=1. 025 [facility] Comment on above: Performed By: #### D DIM #### [facility] [address] [place] [address] Dr. Manjinder Forman UA PROTEIN Negative Normal NEGATIVE/ TRACE [facility] Comment on above: Performed By: #### D DIM #### [facility] [address] [address] [address] Manjinder Forman UR MICRO IND NOT INDICATED Normal [facility] Comment on above: Performed By: #### D DIM #### [facility] [address] [place] [address] Dr. Manjinder Forman Urobilinogen Qn (U) 0.2 {Gabi'U}/dL Normal 0.2 - 1.0 [facility] Comment on above: Performed By: #### D DIM #### [facility] [address] [place] [address] Dr. Manjinder Forman GROUP A STREP CULTUREon S. pyogenes Ag Ql (Unsp spec) Culture Observations: NEGATIVE FOR GROUP A STREPTOCOCCUS. Normal [facility] Comment on above: Performed By: #### G RASTCX, SSCRN #### [facility] [address] [place] [address] Dr. Manjinder Forman INFLUENZA A AND B AGon 07-04 INFLUENZA A AG Negative Normal NEGATIVE SEE COMMENT [facility] Comment on above: Performed By: #### D DIM #### [facility] [address] [place] [address] Dr. Manjinder Forman INFLUENZA B AG Negative Normal NEGATIVE SEE COMMENT [facility] Comment on above: Performed By: #### D DIM #### [facility] [address] [place] [address] Dr. Manjinder Forman INTERNAL CONTROLS Within Normal Limits Normal Wi thin Normal Limits [facility] Comment on above: Performed By: #### D DIM #### [facility] [address] [place] [address] Dr. Manjinder Forman PROF 14(COMP METB)on 022 Albumin [Mass/Vol] 3.7 g/dL Normal 3.4-5.0 [facility] Comment on above: Performed By: #### N A24U, [id number] #### [facility] [address] [place] [address] Dr. Manjinder Forman Albumin/Globulin [Mass ratio] 1.1 {ratio} Normal [facility] Comment on above: Performed By: #### N A24U, [id number] #### [facility] [address] [place] [address] Dr. Manjinder Forman ALP [Catalytic activity/Vol] 84 U/L Normal 46-116 [facility] Comment on above: Performed By: #### N A24U, [id number] #### [facility] [address] [place] [address] Dr. Manjinder Forman ALT [Catalytic activity/Vol] 37 U/L Normal 14-59 [facility] Comment on above: Performed By: #### N A24U, [id number] #### [facility] [address] [place] [address] Dr. Manjinder Forman Anion gap [Moles/Vol] 10.5 mmol/L Normal [facility] Comment on above: Performed By: #### N A24U, [id number] #### [facility] [address] [place] [address] Dr. Manjinder Forman AST [Catalytic activity/Vol] 25 U/L Normal 15-37 [facility] Comment on above: Performed By: #### N A24U, [id number] #### [facility] [address] [place] [address] Dr. Manjinder Forman Bilirubin [Mass/Vol] 0.2 mg/dL Normal 0.2-1.0 [facility] Comment on above: Performed By: #### N A24U, [id number] #### [facility] [address] [place] [address] Dr. Manjinder Forman Calcium [Mass/Vol] 8.6 mg/dL Normal 8.5-10.1 [facility] Comment on above: Performed By: #### N A24U, [id number] #### [facility] [address] [place] [address] Dr. Manjinder Forman Chloride [Moles/Vol] 103 mmol/L Normal 98-107 [facility] Comment on above: Performed By: #### N A24U, [id number] #### [facility] [address] [place] [address] Dr. Manjinder Forman CO2 [Moles/Vol] 26.9 mmol/L Normal 21.0-32.0 [facility] Comment on above: Performed By: #### N A24U, [id number] #### [facility] [address] [place] [address] Dr. Manjinder Forman Creatinine [Mass/Vol] 0.94 mg/dL Normal 0.55-1.02 [facility] Comment on above: Performed By: #### N A24U, [id number] #### [facility] [address] [address] [address] Manjinder Forman EGFR-AF RWANDAN >60 Normal >=60 [facility] Comment on above: Performed By: #### N A24U, [id number] #### [facility] [address] [address] [address] Manjinder Forman EGFR-NON AF RWANDAN >60 Normal >=60 [facility] Comment on above: Performed By: #### N A24U, [id number] #### [facility] [address] [address] [address] Manjinder Forman Globulin (S) [Mass/Vol] 3.4 g/dL Normal [facility] Comment on above: Performed By: #### N A24U, [id number] #### [facility] [address] [place] [address] Dr. Manjinder Forman Glucose [Mass/Vol] 95 mg/dL Normal 74-106 [facility] Comment on above: Performed By: #### N A24U, [id number] #### [facility] [address] [place] [address] Dr. Manjinder Forman Potassium [Moles/Vol] 4.4 mmol/L Normal 3.5-5.1 [facility] Comment on above: Performed By: #### N A24U, [id number] #### [facility] [address] [place] [address] Dr. Manjinder Forman Protein [Mass/Vol] 7.1 g/dL Normal 6.4-8.2 [facility] Comment on above: Performed By: #### N A24U, [id number] #### [facility] [address] [place] [address] Dr. Manjinder Forman Sodium [Moles/Vol] 136 mmol/L Normal 136-145 [facility] Comment on above: Performed By: #### N A24U, [id number] #### [facility] [address] [place] [address] Dr. Manjinder Forman Urea nitrogen [Mass/Vol] 8.0 mg/dL Normal 7.0-18.0 [facility] Comment on above: Performed By: #### N A24U, [id number] #### [facility] [address] [place] [address] Dr. Manjinder Forman Urea nitrogen/Creatinin e [Mass ratio] 8.5 mg/mg Normal [facility] Comment on above: Performed By: #### N A24U, [id number] #### [facility] [address] [place] [address] Dr. Manjinder Forman STREPT SCREENon 07-04-2022 STREP SCREEN A Negative Normal NEGATIVE [facility] Comment on above: Performed By: #### G RASTCX, SSCRN #### [facility] [address] [place] [address] Dr. Manjinder Forman UA RANDOM W/MICROSCOPICon BACTERIA NONE SEEN Normal NONE SEEN [facility] Comment on above: Performed By: #### H STROPN, CMP #### [facility] [address] [place] [address] Dr. Manjinder Forman Bilirubin Ql (U) Negative Normal NEGATIVE [facility] Comment on above: Performed By: #### H JUANPN, CMP #### [facility] [address] [place] [address] Dr. Manjinder Forman CAST NONE SEEN Normal NONE SEEN [facility] Comment on above: Performed By: #### H JUANPN, CMP #### [facility] [address] [place] [address] Dr. Manjinder Forman Clarity (U) CLEAR Normal CLEAR [facility] Comment on above: Performed By: #### H STROPN, CMP #### [facility] [address] [place] [address] Dr. Manjinder Forman Color (U) LT. YELLOW Normal YELLOW [facility] Comment on above: Performed By: #### H STROPN, CMP #### [facility] [address] [place] [address] Dr. Manjinder Forman Crystals LM Nom (Urine sed) NONE SEEN Normal NONE SEEN [facility] Comment on above: Performed By: #### H STROPN, CMP #### [facility] [address] [address] [address] Manjinder Forman Epithelial cells LM Ql (Urine sed) MODERATE Abnormal NONE SEEN /RARE [facility] Comment on above: Performed By: #### H STROPN, CMP #### [facility] [address] [address] [address] Manjinder Forman Glucose Ql (U) Negative Normal NEGATIVE [facility] Comment on above: Performed By: #### H STROPN, CMP #### [facility] [address] [address] [address] Manjinder Forman Hemoglobin Ql (U) Negative Normal NEGATIVE [facility] [place] Comment on above: Performed By: #### H STROPN, CMP #### [facility] [address] [place] [address] Dr. Manjinder Forman Ketones Ql (U) Negative Normal NEGATIVE [facility] Comment on above: Performed By: #### H STROPN, CMP #### [facility] [address] [address] [address] Manjinder Forman LEUKOCYTES Negative Normal NEGATIVE [facility] Comment on above: Performed By: #### H STROPN, CMP #### [facility] [address] [address] [address] Manjinder Forman MUCOUS NONE SEEN Normal NONE SEEN [facility] Comment on above: Performed By: #### H STROPN, CMP #### [facility] Laboratory [address] [address] [address] Manjinder Forman Nitrite Ql (U) Negative Normal NEGATIVE [facility] Comment on above: Performed By: #### H STROPN, CMP #### [facility] [address] [address] [address] Manjinder Forman pH (U) 6.0 [pH] Normal 5-9 [facility] Comment on above: Performed By: #### H STROPN, CMP #### [facility] [address] [address] [address] Manjinder Forman RBC NONE SEEN Abnormal 0-2 [facility] Comment on above: Performed By: #### H STROPN, CMP #### [facility] [address] [address] [address] Manjinder Forman SPEC GRAVITY 1.010 Normal 1.005-<=1. 025 [facility] Comment on above: Performed By: #### H STROPN, CMP #### [facility] [address] [address] [address] Manjinder Forman UA PROTEIN Negative Normal NEGATIVE/ TRACE [facility] Comment on above: Performed By: #### H STROPN, CMP #### [facility] [address] [address] [address] Manjinder Forman Urobilinogen Qn (U) 0.2 {Gabi'U}/dL Normal 0.2 - 1.0 [facility] Comment on above: Performed By: #### H JUANPN, CMP #### [facility] [address] [address] [address] Manjinder Forman WBC NONE SEEN Normal NONE SEEN [facility] Comment on above: Performed By: #### H STROPN, CMP #### [facility] [address] [address] [address] Manjinder Forman XR KUB 1 VIEWon [...] by: CHIDI MORALES Date: 2022-07-02 13:43 Normal [facility] CPKon 04-17-2021 CK [Catalytic activity/Vol] 59 U/L Normal 30-223 [facility] Comment on above: Performed By: #### 2 5508, [address]009, [id number] #### [address] CYCLIC CITRULLINATED PEPTIDE [place] [id number] 04-17-2021 CYCLIC CIT PEP 4 Units Normal 0-19 [facility] Comment on above: Result Comment: INTE [...] be monitored and testing repeated. Performed By: garbs [address] [place] [address] Auto Body Worker: Emily Tellez MD HAND LEFT 3 [facility] 04-17-2021 HAND LEFT 3 [facility] Department of Radiology [address] [place] [id number] Patient Name: ANDREA LONG : 1980 Sex: F Age: Race: White Pt. Location: [facility] Patient Status: O Ordered Date: 04/17/2021 [...] erosions. Electronically signed: Lukas Porter. Transcribed by: [email or web address], User Resident: Electronically Signed by: LUKAS PORTER @ 04/17/2021 04:14 PM Normal [facility] Comment on above: Order Comment: Evalu ate HAND RIGHT 3 Son 1 HAND RIGHT 3 [facility] Department of Radiology [address] [place] [id number] Patient Name: ANDREA LONG : 1980 Sex: F Age: Race: White Pt. Location: [facility] Patient Status: O Ordered Date: 04/17/2021 11:05:00 AM Completed Date: 04/17/2021 11:06 AM Requesting Provider: LUBNA BONILLA Attending Provider: BHAVIK ARRIAGA Report Copy To: Signs & Symptoms: M25.50 Pain in unspecified joint I10 History: Breonna Comments: Evaluate Exam: HAND RIGHT 3 S HAND RIGHT 3 VWS CLINICAL INFORMATION: pt states alfie hand pain, arthritis COMPARISON: None. IMPRESSION: 1. No fracture. No erosions. Scattered degenerative changes. Electronically signed: Lukas Porter. Transcribed by: [email or web address], User Resident: Electronically Signed by: LUKAS PORTER @ 04/17/2021 04:15 PM Normal [facility] Comment on above: Order Comment: Evalu ate SEDIMENTATION RATEon 021 SED RATE 10 mm/hr Normal 0-20 [facility] Comment on above: Performed By: #### 5 6506 #### [facility] [address] [place] [address], [facility] SJOGRENS ANTIBODIESon 2020 SS-A Negative Normal NEG,NEGATI VE,Neg [facility] Comment on above: Performed By: #### 9 9850 #### [facility] [address] [place] [address], [facility] SS-B Negative Normal NEG,NEGATI VE,Neg [facility] Comment on above: Performed By: #### 9 9850 #### [facility] [address] [place] [address], [facility] TSH3on 04-17-2021 TSH 3RD GENERATION 1.35 uIU/mL Normal 0.34-5.60 [facility] Comment on above: Performed By: #### 2 5508, [id number], 95756 #### [facility] [address] [place] [address], [place] VITAMIN D 25-HYDROXYon 04-17 VITAMIN D 25-OH 66.4 ng/mL Normal 30.0-80.0 [facility] Comment on above: Result Comment: >80. 0 Toxicity possible Performed By: #### 2 5928, 29574, 80246 #### [facility] [address] [place] [address], [facility] CBC With Auto Differentialon 12-18-2020 Basophils (Bld) [#/Vol] 0.05 10*3/uL [facility] Phone: Basophils/100 WBC (Bld) 1 % 0 - 2 % [facility] Phone: Differential Type NOT REPORTED [facility] Phone: Eosinophils (Bld) [#/Vol] 0.21 10*3/uL [facility] Phone: Eosinophils/100 WBC (Bld) 3 % 1 - 4 % [facility] Phone: Erythrocyte distribution width (RBC) [Ratio] 11.7 % Low 11.8 - 14.4 % [facility] Phone: Hematocrit (Bld) [Volume fraction] 43.3 % 36.3 - 47.1 % [facility] Phone: Hemoglobin (Bld) [Mass/Vol] 13.8 g/dL 11.9 - 15.1 g/dL [facility] Phone: Immature granulocytes (Bld) [#/Vol] 0 % 0 [facility] Phone: Immature granulocytes (Bld) [#/Vol] 10*3/uL [facility] Phone: Interpretation and review of laboratory results Abnormal [facility] Phone: Lymphocytes (Bld) [#/Vol] 2.04 10*3/uL [facility] Phone: Lymphocytes/100 WBC (Bld) 28 % 24 - 43 % [facility] Phone: MCH (RBC) [Entitic mass] 30.7 pg 25.2 - 33.5 pg [facility] Phone: MCHC (RBC) [Mass/Vol] 31.9 g/dL 28.4 - 34.8 g/dL [facility] Phone: MCV (RBC) [Entitic vol] 96.2 fL 82.6 - 102.9 fL [facility] Phone: Monocytes (Bld) [#/Vol] 0.83 10*3/uL [facility] Phone: Monocytes/100 WBC (Bld) 11 % 3 - 12 % [facility] Phone: Platelet mean volume (Bld) [Entitic vol] 10.5 fL 8.1 - 13.5 fL [facility] Phone: Platelets (Bld) [#/Vol] 335 10*3/uL [facility] Phone: Platelets (Bld) [#/Vol] NOT REPORTED [facility] Phone: RBC (Bld) [#/Vol] 4.50 10*6/uL 3.95 - 5.11 m/uL [employer] Work Phone: RBC morphology finding Nom (Bld) NOT REPORTED [facility] Phone: Segmented neutrophils/100 WBC (Bld) 57 % 36 - 65 % [facility] Phone: Segs Absolute 4.10 [facility] [employer] Work Phone: WBC (Bld) [#/Vol] 7.3 10*3/uL [facility] Phone: WBC (Bld) [#/Vol] 0.0 10*3/uL 0.0 per 100 WBC [facility] Phone: WBC Morphology NOT REPORTED [facility] Work Phone: COVID-19on 11-06-2020 SARS-CoV-2 [facility] Phone: SARS-CoV-2 Not Detected Not Detected [facility] Phone: Comment on above: The specimen is NEGATIVE for SARS-CoV-2, the novel coronavirus associated with COVID-19. A negative result does not rule out COVID-19. [employer] SARS-CoV-2 for use on the [employer] is a real-time RT-PCR test intended [...] this assay. Fact sheet for Healthcare Providers: https://www.fda.gov/media/009479/download Fact sheet for Patients: https://www.fda.gov/media/202904/download METHODOLOGY: RT-PCR SARS-CoV-2, Rapid [employer] Work Phone: Source .NASOPHARYNGEAL SWAB [email or web address] Work Phone: US BREAST COMPLETE RIGHTon 0 [...] to the patient regarding the results. The [employer] recommends annual mammograms for women 40 years and older. [employer]- [place] EXAMINATION: TARGETE D ULTRASOUND OF THE RIGHT [...] a breast lobule. No suspicious mass identified. [place], [place] Karan, Mhpn Incoming R adiant Results From Service Seeking/Pacs - 10/05/2020 2:26 PM EST EXAMINATION: TARGETED [...] to the patient regarding the results. The [employer] [place] [employer] recommends annual mammograms for women 40 years and older. [place] Estradiolon 08-31-2020 Estradiol <5 Low 27 - 314 pg/mL [place] Comment on above: FEMALES: Normally menstruating Luteal phase 33-298 Follicular phase 27-156 Midcycle phase 48-314 Postmenopausal (untreated) 5-50 Fulvestrant treatment will show an increased estradiol concentration with this methodology. Alternate methodologies are available upon request. Follicle Stimulating Hormone on 08-31-2020 FSH 1 U/L Low 1.7 - 21.5 U/L [place] Comment on above: Reference Range: Male: 1.5-12.4 Ovulating Female: Follicular Phase 3.5-12.5 Ovulation Phase 4.7-21.5 Luteal Phase 1.7-7.7 Postmenopausal Female: 25.8-134.8 Interpretation and review of laboratory results Abnormal [place] Luteinizing Hormoneon 2019 LH <0.1 Low 1 - 95.6 U/L [place] Comment on above: Reference Range: Male: 1.7-8.6 Ovulating Female: Follicular Phase 2.4-12.6 Ovulation Phase 14.0-95.6 Luteal Phase 1.0-11.4 Postmenopausal Female: 7.7-58.5 Otheron 08-31-2020 Interpretation and review of laboratory results Abnormal [place] TSH With Reflex Ft4on 2019 TSH Qn 1.26 m[IU]/L [place] US NON OB TRANSVAGINALon Unremarkable sonogra phic appearance of the uterus and endometrial stripe. Neither ovary is visualized or evaluated. [place] EXAMINATION: PELVIC ULTRASOUND 07/12/2020 TECHNIQUE: Transvaginal pelvic ultrasound was performed. COMPARISON: None HISTORY: ORDERING SYSTEM PROVIDED HISTORY: History of menorrhagia FINDINGS: Neither ovary is visualized or evaluated. Uterus measures 7.3 x 3.0 x 3.7 cm. Endometrial stripe measures 5.9 mm. No free fluid is appreciated. [place], [place] Karan, Mhpn Incoming R adiant Results From [place]/Pacs - 07/12/2020 6:18 PM EDT EXAMINATION: PELVIC [...] stripe. Neither ovary is visualized or evaluated. [place] Vital Signs Date Time Vital Sign Value Performing Clinician Facility 11-14-2024 15:03-0500 Blood Pressure Location RAFAL COLIN [facility] 11-14-2024 15:03-0500 Diastolic blood pressure 89 mm[Hg] RAFAL COLIN [facility] 11-14-2024 15:03-0500 Heart rate 83 /min RAFAL COLIN [facility] 11-14-2024 15:03-0500 Respiratory rate 18 /min RAFAL COLIN [facility] 11-14-2024 15:03-0500 Systolic blood pressure 128 mm[Hg] RAFAL COLIN [facility] 10-26-2024 13:53-0500 Body mass index (BMI) [Ratio] 31.28 kg/m2 Alison Cage [employer] Work Phone: [facility] 10-26-2024 13:53-0500 Body weight 85.28 kg Alison Cage [employer] Work Phone: [facility] 10-26-2024 13:53-0500 Diastolic blood pressure 88 mm[Hg] Alison Cage [employer] Work Phone: [facility] 10-26-2024 13:53-0500 Heart rate 83 /min Alison Cage [employer] Work Phone: [facility] 10-26-2024 13:53-0500 SaO2% (BldA) [Mass fraction] 94 % Alison Cage [employer] Work Phone: [facility] 10-26-2024 13:53-0500 Systolic blood pressure 132 mm[Hg] Alison Cage [employer] Work Phone: [facility] 10-11-2024 15:10-0500 Body height 165.1 cm Caitlin Finch [employer] Work Phone: [facility] 10-11-2024 15:10-0500 Body mass index (BMI) [Ratio] 31.02 kg/m2 Caitlin Finch [employer] Work Phone: [facility] 10-11-2024 15:10-0500 Body temperature 98.8 [degF] Caitlin Finch [employer] Work Phone: [facility] 10-11-2024 15:10-0500 Body weight 84.55 kg Caitlin Finch [employer] Work Phone: [facility] 10-11-2024 15:10-0500 Diastolic blood pressure 68 mm[Hg] Caitlin Finch [employer] Work Phone: [facility] 10-11-2024 15:10-0500 Heart rate 82 /min Caitlin Finch [employer] Work Phone: [facility] 10-11-2024 15:10-0500 Respiratory rate 20 /min Caitlin Finch [employer] Work Phone: [facility] 10-11-2024 15:10-0500 SaO2% (BldA) [Mass fraction] 96 % Caitlin Finch [employer] Work Phone: [facility] 10-11-2024 15:10-0500 Systolic blood pressure 116 mm[Hg] Caitlin Finch [employer] Work Phone: [facility] 08-30-2024 14:17-0500 Body height 165.1 cm Alison Cage [employer] Work Phone: [facility] 08-30-2024 14:17-0500 Body mass index (BMI) [Ratio] 31.8 kg/m2 Alison Cage [employer] Work Phone: [facility] 08-30-2024 14:17-0500 Body weight 86.69 kg Alison Cage [employer] Work Phone: [facility] 08-30-2024 14:17-0500 Diastolic blood pressure 78 mm[Hg] Alison Cage [employer] Work Phone: [facility] 08-30-2024 14:17-0500 Heart rate 79 /min Alison Cage [employer] Work Phone: [facility] 08-30-2024 14:17-0500 SaO2% (BldA) [Mass fraction] 97 % Alison Cage [employer] Work Phone: [facility] 08-30-2024 14:17-0500 Systolic blood pressure 131 mm[Hg] Alison Cage [employer] Work Phone: [facility] 07-11-2024 13:49-0400 Body height 165.1 cm Alison Cage [employer] Work Phone: [facility] 07-11-2024 13:49-0400 Body mass index (BMI) [Ratio] 31.88 kg/m2 Alison Cage [employer] Work Phone: [facility] 07-11-2024 13:49-0400 Body weight 86.91 kg Alison Cage [employer] Work Phone: [facility] 07-11-2024 13:49-0400 Diastolic blood pressure 82 mm[Hg] Alison Cage [employer] Work Phone: [facility] 07-11-2024 13:49-0400 Heart rate 81 /min Alison Cage [employer] Work Phone: [facility] 07-11-2024 13:49-0400 SaO2% (BldA) [Mass fraction] 97 % Alison Cage [employer] Work Phone: [facility] 07-11-2024 13:49-0400 Systolic blood pressure 146 mm[Hg] Alison Cage [employer] Work Phone: [facility] 06-28-2024 13:52-0400 Body height 165.1 cm Caitlin Stef [employer] Work Phone: [facility] 06-28-2024 13:52-0400 Body mass index (BMI) [Ratio] 29.85 kg/m2 Caitlin Stef [employer] Work Phone: [facility] 06-28-2024 13:52-0400 Body temperature 98.49 [degF] Caitlin Stef [employer] Work Phone: [facility] 06-28-2024 13:52-0400 Body weight 81.38 kg Caitlinjulio Kapadiaz [employer] Work Phone: [facility] 06-28-2024 13:52-0400 Diastolic blood pressure 86 mm[Hg] Caitlin Koreyholz [employer] Work Phone: [facility] 06-28-2024 13:52-0400 Heart rate 94 /min Caitlin Koreyholz [employer] Work Phone: [facility] 06-28-2024 13:52-0400 Respiratory rate 18 /min Caitlin Koreyholz [employer] Work Phone: [facility] 06-28-2024 13:52-0400 SaO2% (BldA) [Mass fraction] 97 % Caitlin Koreyholz [employer] Work Phone: [facility] 06-28-2024 13:52-0400 Systolic blood pressure 128 mm[Hg] Caitlin Koreyholz [employer] Work Phone: [facility] 05-19-2024 14:59-0400 Body height 165.1 cm Caitlin Akihholz [employer] Work Phone: [facility] 05-19-2024 14:59-0400 Body mass index (BMI) [Ratio] 30.22 kg/m2 Caitlin Koreyholz [employer] Work Phone: [facility] 05-19-2024 14:59-0400 Body temperature 97.5 [degF] Caitlin Koreyholz [employer] Work Phone: [facility] 05-19-2024 14:59-0400 Body weight 82.37 kg Caitlin Akihholz [employer] Work Phone: [facility] 05-19-2024 14:59-0400 Diastolic blood pressure 80 mm[Hg] Caitlin Aichholz [employer] Work Phone: [facility] 05-19-2024 14:59-0400 Heart rate 80 /min Caitlin Aichholz [employer] Work Phone: [facility] 05-19-2024 14:59-0400 Respiratory rate 18 /min Caitlin Finch [employer] Work Phone: [facility] 05-19-2024 14:59-0400 SaO2% (BldA) [Mass fraction] 97 % Caitlin Finch [employer] Work Phone: [facility] 05-19-2024 14:59-0400 Systolic blood pressure 110 mm[Hg] Caitlin Finch [employer] Work Phone: [facility] 09-29-2023 13:10-0500 Body height 165.1 cm Ramona [employer] Other [employer] Other 09-29-2023 13:10-0500 Body mass index (BMI) [Ratio] 30.62 kg/m2 Ramona [employer] Other [employer] Other 09-29-2023 13:10-0500 Body temperature 98.2 [degF] Ramona Jimenez Other [employer] Other 09-29-2023 13:10-0500 Body weight 83.46 kg Ramona Jimenez Other [employer] Other 09-29-2023 13:10-0500 Respiratory rate 18 /min Ramona Jimenez Other [employer] Other 09-29-2023 13:10-0500 SaO2% (BldA) [Mass fraction] 98 % Ramona [employer] Other [employer] Other 05-01-2023 13:56-0400 Body height 165.1 cm [employer] Work Phone: [facility] 05-01-2023 13:56-0400 Body mass index (BMI) [Ratio] 28.29 kg/m2 [employer] Work Phone: [facility] 05-01-2023 13:56-0400 Body temperature 97.3 [degF] Noemi Franklin DO Work Phone: [facility] ? [place] 05-01-2023 13:56-0400 Body weight 77.11 kg Noemi Franklin DO Work Phone: [facility] 05-01-2023 13:56-0400 Diastolic blood pressure 84 mm[Hg] Noemi Franklin DO Work Phone: [facility] 05-01-2023 13:56-0400 Heart rate 75 /min Noemi Franklin DO Work Phone: [facility] ? [place] 05-01-2023 13:56-0400 Respiratory rate 16 /min Noemi Franklin DO Work Phone: [facility] ? [place] 05-01-2023 13:56-0400 SaO2% (BldA) [Mass fraction] 99 % Noemi Franklin DO Work Phone: [facility] ? [place] 05-01-2023 13:56-0400 Systolic blood pressure 150 mm[Hg] Noemi Franklin DO Work Phone: [facility] ? [place] 04-23-2023 12:39-0400 Diastolic blood pressure 90 mm[Hg] Caitlin Finch Work Phone: [facility] DO Work Phone: 04-23-2023 12:39-0400 Diastolic blood pressure 84 mm[Hg] Caitlin Finch Work Phone: [facility] DO Work Phone: 04-23-2023 12:39-0400 Systolic blood pressure 124 mm[Hg] Caitlinjulio Nairholz Work Phone: [facility] 250 DO Work Phone: 04-23-2023 12:39-0400 Systolic blood pressure 118 mm[Hg] Caitlin Singletary Aichholz Work Phone: [facility] 250 DO Work Phone: 04-23-2023 12:05-0400 Body height 165.1 cm Caitlin Singletary Aichholz Work Phone: [facility] DO Work Phone: 04-23-2023 12:05-0400 Body mass index (BMI) [Ratio] 28.62 kg/m2 Caitlin Singletary Aichholz Work Phone: [facility] DO Work Phone: 04-23-2023 12:05-0400 Body surface area Derived from formula 1.86 m2 Caitlin Singletary Aichholz Work Phone: [facility] DO Work Phone: 04-23-2023 12:05-0400 Body weight 78.02 kg Caitlin Singletary Aichholz Work Phone: [facility] DO Work Phone: 04-23-2023 12:05-0400 Heart rate 86 /min Caitlin Singletary Aichholz Work Phone: [facility] DO Work Phone: 04-23-2023 12:04-0400 Diastolic blood pressure 102 mm[Hg] Caitlin Singletary Aichholz Work Phone: [facility] DO Work Phone: 04-23-2023 12:04-0400 Diastolic blood pressure 104 mm[Hg] Caitlin Singletary Aichholz Work Phone: [facility] DO Work Phone: 04-23-2023 12:04-0400 Systolic blood pressure 154 mm[Hg] Caitlin Nairholremigio Work Phone: [facility] DO Work Phone: 04-23-2023 12:04-0400 Systolic blood pressure 152 mm[Hg] Caitlin Nairholz Work Phone: [facility] DO Work Phone: 04-23-2023 12:04-0400 Systolic blood pressure 148 mm[Hg] Caitlin Nairholremigio Work Phone: [facility] DO Work Phone: 12-22-2022 13:35-0400 Blood Pressure Location Roney VILLALTA [facility] 12-22-2022 13:35-0400 Diastolic blood pressure 82 mm[Hg] Roney VILLALTA [facility] 12-22-2022 13:35-0400 Heart rate 72 /min Roney VILLALTA [facility] 12-22-2022 13:35-0400 Respiratory rate 16 /min Roney VILLALTA [facility] 12-22-2022 13:35-0400 Systolic blood pressure 140 mm[Hg] Roney VILLALTA [facility] 09-01-2022 12:38-0500 Blood Pressure Location Roney VILLALTA [facility] 09-01-2022 12:38-0500 Diastolic blood pressure 88 mm[Hg] Roney VILLALTA [facility] 09-01-2022 12:38-0500 Heart rate 75 /min Roney VILLALTA [facility] 09-01-2022 12:38-0500 Respiratory rate 16 /min Roney VILLALTA [facility] 09-01-2022 12:38-0500 Systolic blood pressure 137 mm[Hg] Roney VILLALTA [facility] 07-18-2022 13:50-0400 Body height 165.1 cm Jaelyn Kaila Other [employer] Other 07-18-2022 13:50-0400 Body mass index (BMI) [Ratio] 27.65 kg/m2 Jaelyn Kaila Other [employer] Other 07-18-2022 13:50-0400 Body temperature 97.8 [degF] Jaelyn Kaila Other [employer] Other 07-18-2022 13:50-0400 Body weight 75.39 kg Jaelyn Kaila Other [employer] Other 07-18-2022 13:50-0400 Diastolic blood pressure 65 mm[Hg] Jaelyn Bright Other [employer] Other 07-18-2022 13:50-0400 Respiratory rate 18 /min Jaelyn Kaila Other [employer] Other 07-18-2022 13:50-0400 SaO2% (BldA) [Mass fraction] 97 % Jaelyn Bright Other [employer] Other 07-18-2022 13:50-0400 Systolic blood pressure 106 mm[Hg] Jaelyn Bright Other [facility] [employer] Other Encounters Encounter Date Encounter Type Care Provider Facility Start: 11-17-2025 ambulatory RAFAL Marinai ty:[facility] Start: 11-14-2024 End: 11-14-2024 ambulatory RAFAL COLIN Facility:[facility] Start: 11-14-2024 End: 11-14-2024 Patient encounter procedure RAFAL COLIN [facility]scar Start: 10-31-2024 End: 10-31-2024 ambulatory RAFAL COLIN Facility:[facility] Start: 10-31-2024 End: 10-31-2024 Patient encounter procedure RAFAL COLIN [facility] Start: 10-26-2024 End: 10-26-2024 Bamboo flowsheet Alison Cage [employer] Work Phone: [facility] Start: 10-26-2024 End: 10-26-2024 Bamboo flowsheet Alison Cage [employer] Work Phone: [facility] Start: 10-26-2024 End: 10-26-2024 Office outpatient visit 25 minutes Alison Cage [employer] Work Phone: [facility] Comment on above: Abnormal brain MRI ( Primary Dx); Memory difficulty; Weakness; Paresthesia; Fibromyalgia; Migraine without aura and without status migrainosus, not intractable (CMS/HCC); Anxiety and depression (CMS/HCC); Seizures (CMS/HCC); Syncope and collapse; Orthostatic hypotension Start: 10-26-2024 End: 11-03-2024 Orders Only Alison Cage [employer] Work Phone: [facility] External [facility] Unsolicited Start: 10-26-2024 End: 10-26-2024 ambulatory ALISON CAGE Not Available Start: 10-25-2024 End: 10-25-2024 ambulatory CAITLIN FINCH [facility] Start: 10-11-2024 End: 10-11-2024 Office outpatient visit 25 minutes Caitlin Finch [employer] Work Phone: [facility] Comment on above: Fibromyalgia (Primar y Dx); Major depressive disorder, recurrent severe without psychotic features (HCC) (CMS/HCC); Other emphysema (CMS/HCC); Seizure disorder (CMS/HCC); Chronic right hip pain; Obesity (BMI 30-39.9); Chronic migraine without aura without status migrainosus, not intractable (CMS/HCC); Generalized anxiety disorder (CMS/HCC) Start: 10-11-2024 End: 10-11-2024 ambulatory CAITLIN FINCH Not Available Start: 10-11-2024 End: 10-11-2024 Bamboo flowsheet Caitlin Finch [employer] Work Phone: [facility] Start: 10-11-2024 End: 10-11-2024 Bamboo flowsheet Caitlin Finch [employer] Work Phone: [facility] Start: 09-30-2024 End: 09-30-2024 ambulatory RAFAL COLIN Facility:[facility] Start: 09-30-2024 End: 09-30-2024 Patient encounter procedure RAFAL COLIN [facility] Start: 09-15-2024 End: 09-15-2024 Refill Caitlin Finch [employer] Work Phone: [facility] Comment on above: Other emphysema (CMS /HCC) (Primary Dx) Start: 08-30-2024 End: 08-30-2024 Office outpatient visit 25 minutes Alison Cage [employer] Work Phone: [facility] [address] Comment on above: Abnormal brain MRI ( Primary Dx); Memory difficulty; Weakness; Paresthesia; Fibromyalgia; Migraine without aura and without status migrainosus, not intractable (CMS/HCC); Anxiety and depression (CMS/HCC); Seizures (CMS/HCC); Syncope and collapse; Orthostatic hypotension Start: 08-30-2024 End: 08-30-2024 ambulatory ALISON CAGE Not Available Start: 08-30-2024 End: 08-30-2024 Bamboo flowsheet Alison Cage [employer] Work Phone: [facility] [address] Start: 08-30-2024 End: 08-30-2024 Bamboo flowsheet Alison Cage [employer] Work Phone: [facility] [address] Start: 08-24-2024 End: 08-24-2024 Orders Only Caitlin Finch [employer] Work Phone: [facility] Comment on above: Hyperkalemia (Primar y Dx) Start: 08-17-2024 End: 08-17-2024 Clinisync Result Encounter Alison Cage [employer] Work Phone: [facility] External Department Unsolicited Start: 08-17-2024 End: 08-17-2024 Clinisync Result Encounter Alison Cage [employer] Work Phone: [facility] External Department Unsolicited Start: 08-08-2024 End: 08-08-2024 Refill Caitlin Finch [employer] Work Phone: [facility] Comment on above: Chronic migraine wit hout aura without status migrainosus, not intractable (CMS/HCC) Start: 07-26-2024 End: 07-26-2024 ambulatory CAITLIN FINCH [facility] Start: 07-25-2024 End: 07-26-2024 Refill Caitlin Finch [employer] Work Phone: [facility] Comment on above: Fibromyalgia Start: 07-11-2024 End: 07-11-2024 Office outpatient visit 25 minutes Alison Cage [employer] Work Phone: [facility] [address] Comment on above: Migraine without aur a and without status migrainosus, not intractable (CMS/HCC) (Primary Dx); Anxiety and depression (CMS/HCC); Paresthesia; Fibromyalgia; Memory difficulty; Abnormal brain MRI; Weakness; Seizures (CMS/HCC); Syncope and collapse; Orthostatic hypotension Start: 07-11-2024 End: 07-11-2024 ambulatory ALISON CAGE Not Available Start: 07-11-2024 End: 07-11-2024 ambulatory Roney VILLALTA Facility:[facility] Start: 07-11-2024 End: 07-11-2024 Patient encounter procedure Roney VILLALTA [facility] Start: 06-30-2024 End: 06-30-2024 Refill Caitlin Aichholz [employer] Work Phone: [facility] Comment on above: Nausea (Primary Dx) Start: 06-30-2024 End: 07-01-2024 Refill Caitlin Aichholz [employer] Work Phone: [facility] Comment on above: Fibromyalgia Start: 06-28-2024 End: 06-28-2024 Bamboo flowsheet Caitlin Aichholz [employer] Work Phone: [facility] Start: 06-28-2024 End: 06-28-2024 Bamboo flowsheet Caitlin Aichholz [employer] Work Phone: [facility] Start: 06-28-2024 End: 06-28-2024 ambulatory CAITLIN AICHHOLZ Not Available Start: 06-28-2024 End: 06-28-2024 Office outpatient visit 25 minutes Caitlin Aichholz [employer] Work Phone: [facility] Comment on [...] (CMS/HCC) Start: 06-21-2024 End: 06-21-2024 ambulatory [facility] Start: 06-21-2024 End: 06-22-2024 Clinisync Result Encounter Generic External Data Provider [facility] External Department Unsolicited Start: 06-21-2024 End: 06-22-2024 Clinisync Result Encounter Generic External Data Provider [facility] External Department Unsolicited Start: 06-10-2024 End: 06-23-2024 Telephone encounter Lukas HA Work Phone: [facility] Start: 06-07-2024 End: 06-07-2024 Bamboo flowsheet Lukas HA Work Phone: [facility] Start: 06-07-2024 End: 06-07-2024 Bamboo flowsheet Lukas HA Work Phone: [facility] Start: 06-07-2024 End: 06-07-2024 Office outpatient visit 15 minutes Lukas HA Work Phone: [facility] Comment on above: Acute right hip pain (Primary Dx); Right hip impingement syndrome; Tear of right acetabular labrum, initial encounter Start: 06-07-2024 End: 06-07-2024 ambulatory LUKAS BOURNE Not Available Start: 05-19-2024 End: 05-19-2024 ambulatory CAITLIN FINCH Not Available Start: 05-19-2024 End: 05-19-2024 Office outpatient visit 25 minutes Caitlin Finch [employer] Work Phone: [facility] Comment on above: Chronic migraine wit hout aura without status migrainosus, not intractable (CMS/HCC) (Primary Dx); Obesity (BMI 30-39.9); Chronic right hip pain; Fibromyalgia; Generalized skin lesions Start: 05-19-2024 End: 05-19-2024 Bamboo flowsheet Caitlin Finch [employer] Work Phone: [facility] Start: 05-19-2024 End: 05-19-2024 Bamboo flowsheet aCitlin Finch [employer] Work Phone: [facility] Start: 04-20-2024 End: 04-20-2024 ambulatory CAITLIN AKILeanneBASIMRemigio Not Available Start: 04-18-2024 End: 04-18-2024 ambulatory ALISON CAGE Not Available Start: 04-13-2024 End: 04-13-2024 [facility] Start: 04-08-2024 End: 04-08-2024 ambulatory LUKAS BOURNE Not Available Start: 03-23-2024 ambulatory SHARA Mcginnis BRITTNI Not Avai lable Start: 03-22-2024 End: 03-22-2024 ambulatory CAITLIN STEF Not Available Start: 03-10-2024 End: 03-10-2024 ambulatory PAUL HENDRIX Not Available Start: 03-08-2024 End: 03-08-2024 ambulatory LUKAS Ras BOURNE Not Available Start: 03-07-2024 End: 03-08-2024 ambulatory SHARA Mcginnis BRITTNI Not Available Start: 03-01-2024 End: 03-01-2024 [facility] Start: 02-16-2024 End: 02-16-2024 ambulatory CAITLIN STEF Not Available Start: 01-25-2024 End: 01-25-2024 ambulatory LUKAS Mcginnis SHAKILA Not Available Start: 01-19-2024 ambulatory FRANK DIAZ [facility] Start: 01-05-2024 End: 01-05-2024 ambulatory CAITLIN AKILeanneBASIMZ Not Available Start: 12-31-2023 End: 12-31-2023 ambulatory CAITLIN FINCH [facility] Start: 11-17-2023 End: 11-18-2023 ambulatory CAITLIN McginnisBenoit FINCH [facility] Start: 11-11-2023 End: 11-11-2023 ambulatory CAITLIN Ras. AKILeanneMINERVA [facility] Start: 11-11-2023 End: 11-11-2023 Subsequent hospital visit by physician Caitlin Finch [facility] Comment on above: Menopausal symptoms; Vaginal discomfort Start: 11-11-2023 Clinisync Result Encounter Generic External Data Provider [facility] External Department Unsolicited Start: 11-11-2023 Clinisync Result Encounter Generic External Data Provider [facility] External Department Unsolicited Start: 11-06-2023 End: 11-07-2023 ambulatory CA[facility]LIN [facility] Start: 11-03-2023 End: 11-03-2023 ambulatory CAITLIN J [facility] Start: 10-21-2023 End: 10-22-2023 ambulatory CAITLIN [facility] Start: 10-06-2023 End: 10-07-2023 [facility] Start: 09-29-2023 End: 09-29-2023 ambulatory Ramona Jimenez Other [facility] Other Start: 09-29-2023 Office outpatient vi sit 25 minutes Ramona Jimenez [facility] Start: 09-16-2023 End: 09-17-2023 ambulatory CAITLIN [facility] Start: 09-10-2023 End: 09-11-2023 ambulatory CAITLIN [facility] Start: 09-04-2023 End: 09-05-2023 ambulatory CAITLIN [facility] Start: 08-19-2023 End: 08-20-2023 ambulatory CAITLIN [facility] Start: 08-10-2023 End: 08-11-2023 ambulatory CAITLIN [facility] Start: 08-03-2023 End: 08-04-2023 ambulatory CAITLIN [facility] Start: 07-30-2023 End: 07-30-2023 ambulatory [facility] Ambulatory Start: 07-27-2023 End: 07-28-2023 ambulatory CAITLIN [facility] Start: 07-23-2023 End: 07-24-2023 ambulatory CAITLIN [facility] Start: 07-16-2023 End: 07-17-2023 ambulatory CAITLIN [facility] Start: 07-09-2023 End: 07-10-2023 ambulatory CAITLIN [facility] Start: 07-01-2023 End: 07-02-2023 ambulatory CAITLIN [facility] Start: 06-24-2023 End: 06-25-2023 ambulatory CAITLIN [facility] Start: 06-19-2023 ambulatory Shaneka Diaz Facility:[id number] Start: 06-17-2023 End: 06-18-2023 [facility] Start: 06-10-2023 End: 06-11-2023 [facility] Start: 06-09-2023 ECHO, Provider: EDMUND BAEZ ULTRASOUND 01,[id number], Status: Pen, Time: 9:45 AM Caitlin Singletary Stef Work Phone: [facility] 250 DO Work Phone: Start: 06-09-[address] Caitlin Singletary Stef Murrell acility:[id number] Start: 06-08-2023 Patient encounter procedure Caitlin Singletary Stef Work Phone: [facility] 250 DO Work Phone: Start: 06-08-2023 ambulatory Shaneka Diaz Facility:[id number] Start: 06-03-2023 End: 06-04-2023 ambulatory CAITLIN [facility] Start: 05-27-2023 End: 05-28-2023 ambulatory CAITLIN [facility] Start: 05-21-2023 End: 05-22-2023 [facility] Start: 05-15-2023 Chart Update Caitlin Gemini meeks Work Phone: [facility] 250 DO Work Phone: Start: 05-15-2023 End: 05-16-2023 [facility]ulatory [facility] Start: 05-13-2023 ambulatory Anya Watkins Faci lity:[id number] Start: 05-13-2023 End: 05-13-2023 ambulatory Jhonkirti Joniniraj Facility:[facility] Start: 05-08-2023 End: 05-09-2023 ambulatory CAITLIN [facility] Start: 05-01-2023 End: 05-01-2023 Emergency department patient visit [facility] Start: 05-01-2023 End: 05-01-2023 Emergency department patient visit [facility] DO Work Phone: [facility] ED Comment on above: Poison loli (Primary Dx) Start: 05-01-2023 End: 05-01-2023 ambulatory CAITLIN [facility] Start: 04-23-2023 Patient encounter procedure [facility] Work Phone: [facility] 250 DO Work Phone: Start: 04-23-2023 ambulatory Shaneka Diaz Facility:[id number] Start: 04-20-2023 End: 04-21-2023 ambulatory CAITLIN [facility] Start: 02-18-2023 ambulatory Shaneka Diaz Facility:[facility] Start: 02-18-2023 End: 02-19-2023 ambulatory CAITLIN [facility] Start: 02-13-2023 End: 02-14-2023 ambulatory CAITLIN [facility] Start: 02-09-2023 End: 02-09-2023 ambulatory DARLENE FINCH Facility:[facility]1 Start: 02-04-2023 End: 02-05-2023 ambulatory CAITLIN [facility] Start: 01-30-2023 End: 01-31-2023 [facility] Start: 01-23-2023 End: 01-24-2023 ambulatory [facility] Start: 01-16-2023 End: 01-17-2023 ambulatory CAITLIN [facility] Start: 01-09-2023 End: 01-10-2023 [facility]ulatory [facility] Start: 01-01-2023 End: 01-01-2023 Subsequent hospital visit by physician Caitlin Finch Work Phone: [facility] Comment on above: Dysuria; Pelvic pain Start: 01-01-2023 End: 01-01-2023 Subsequent hospital visit by physician Caitlin Finch Work Phone: [facility] Comment on above: Hot flashes Start: 12-30-2022 End: 12-31-2022 ambulatory [facility] Start: 12-24-2022 End: 12-25-2022 ambulatory [facility] Start: 12-22-2022 End: 12-22-2022 Patient encounter procedure Roney VILLALTA [facility] Start: 12-17-2022 End: 12-18-2022 ambulatory [facility] Start: 12-12-2022 End: 12-13-2022 ambulatory [facility] Start: 12-10-2022 End: 12-11-2022 ambulatory CAITLIN [facility] Start: 09-03-2022 End: 09-04-[address] RONEY VILLALTA . Facility: Start: 09-01-2022 End: 09-01-2022 Patient encounter procedure Roney VILLALTA [facility] Óscar Start: 07-30-2022 End: 07-31-2022 ambulatory DARLENE FINCH Facility:H1 Start: 07-18-2022 End: 07-18-2022 ambulatory Jaelyn Bright Other [facility] Other Start: 07-18-2022 Office outpatient vi sit 15 minutes Jaelyn Bright [facility] Start: 07-06-2022 End: 07-06-[address] ALANNAH SPEARS . Facility:H1 Start: 07-04-2022 ambulatory DARLENE IFNCH Facil ity:H1 Start: 07-04-2022 End: 07-04-[address] CHIDI MORALES Facility:[facility]1 Start: 07-02-2022 End: 07-03-2022 ambulatory DARLENE FINCH Facility:[facility]1 Start: 06-18-2022 End: 06-18-2022 Subsequent hospital visit by physician Caitlin Finch Work Phone: [facility] Laboratory Comment on above: Postcoital bleeding Start: 01-01-2022 End: 01-01-2022 Patient encounter procedure DO Fernando Ragsdale Work Phone: [facility] [address] Start: 12-18-2020 End: 12-18-2020 Subsequent hospital visit by physician Caitlin Finch [facility] Laboratory Comment on above: Fatigue, unspecified type Start: 11-05-2020 End: 11-09-2020 Subsequent hospital visit by physician [facility] Covid19 Pat Screening Schedule [facility] PRE ADMIT Comment on above: Preoperative testing Start: 10-05-2020 End: 10-07-2020 Subsequent hospital visit by physician [facility] Ultrasound Room [facility] Ultrasound Comment on above: Abnormal mammogram Start: 08-31-2020 End: 09-02-2020 Subsequent hospital visit by physician [facility] Mammography Room At [facility] Laboratory Comment on above: Hot flashes Screening mammogram, encounter for Start: 07-12-2020 End: 07-14-2020 Subsequent hospital visit by physician [facility] Ultrasound [facility] Ultrasound Comment on above: History of menorrhag ia Start: 07-05-2020 End: 07-05-2020 Subsequent hospital visit by physician [facility] Comment on above: Screening for cervic al cancer; History of menorrhagia Start: 06-21-2018 Adult health examination Ramona Jimenez Other [facility] Other Procedures Date Procedure Procedure Detail Performing Clinician Start: 10-26-2024 ACETYLCHOLINE RECEPTOR AB, ALL Alison wilson [employer] Work Phone: Start: 10-26-2024 LYME DISEASE SEROLOGY W/REFLEX Alison wilson [employer] Work Phone: Start: 10-26-2024 MUSK ABS, SERUM Alison Cage [employer] Work Phone: Start: 08-17-2024 ALL MYOGLOBIN Alison Cage [employer] Work Phone: Start: 08-17-2024 ALL THYROID STIM HORMONE Alison Cage N P Work Phone: Start: 08-17-2024 CCF CK Alison Cage [employer] Work Phone: Start: 08-17-2024 [facility] CMP (CMP) (FOR REMOTE [facility] USE) Alison Cage [employer] Work Phone: Start: 06-21-2024 ALL FOLLICLE STIMULATING HORMONE Generic External Data Provider Start: 06-21-2024 ALL LUTEINIZING HORMONE Generic External Data Provider Start: 02-18-2024 Mammography Caitlin Finch [employer] Work Phone: Start: 11-11-2023 ALL FOLLICLE STIMULATING HORMONE Generic External Data Provider Start: 11-11-2023 Gonadotropin follicle stimulating hormone Frank Diaz STRAPPER - CNM Work Phone: Start: 11-11-2023 MHPT ESTRADIOL Generic External Data Provider Start: 06-09-2023 Echocardiography Caitlin Finch Work Phone: Start: 01-01-2023 Iadna mary species direct probe tq Frank Diaz STRAPPER - CNM Work Phone: Start: 01-01-2023 Gonadotropin follicle stimulating hormone Frank Diaz STRAPPER - CNM Work Phone: Start: 01-01-2022 MRI of head DO Fernando Ragsdale Work Phone: Start: 06-26-2021 Colonoscopy Generic Provider Start: 06-26-2021 Colonoscopy Roney VILLALTA Start: 06-26-2021 Esophagogastroduodenoscopy Roneykalpesh MCGARRY S Start: 12-18-2020 Blood count complete [...] Fracture of bone of nasal sinus (disorder) Roneykalpesh VILLALTA Appendectomy Roneykalpesh VILLALTA Appendectomy Caitlin harvey Work Phone: Colonoscopy Caitlin harvey Work Phone: Comment on above: 2021; Counseling Ramona Jimenez Other Depression screening Ramona Ray kristine Other Esophagogastroduodenoscopy L dayana Gemini Finch Work Phone: Hysterectomy Caitlin Gemini harvey Work Phone: Plan of Treatment Date Care Activity Detail Author Start: 06-26-2031 Screening for malignant neoplasm of colon [facility] Start: 09-05-2025 DTaP/Tdap/Td vaccine (2 - Td or Tdap) DTaP/Tdap/Td vaccine (2 - Td or Tdap) [facility] Start: 07-05-2025 Screening for malignant neoplasm of cervix Cervical cancer screen [place], [place] Start: 02-17-2025 Screening for malignant neoplasm of breast Mammogram [facility] Start: 01-10-2025 End: 01-10-2025 Patient encounter procedure 01/10/2025 2:00 PM EDT Office Visit [facility] [address] [place] [address] Caitlin Finch NP [address] [place] [phone] [facility] Start: 12-20-2024 End: 12-20-2024 Patient encounter procedure 12/20/2024 1:20 PM EDT Office Visit [facility] [address] [place] [address] Alison Cage NP [address] [place] [phone] [facility] Start: 11-15-2024 End: 11-15-2024 Patient encounter procedure 11/15/2024 3:45 PM EST Office Visit [facility] Part of [address] [place] [address] Frank Diaz, EDD - GIOVANNI [address] [place] [address] [address] [place] [address] PAP [facility] Part of [facility] Comment on above: PAP Start: 11-11-2024 Medicare Annual Wellness (AWV) Medicare Annual Wellness (AWV) [facility] Start: 11-03-2024 End: 11-03-2025 MR Cervical spine WO and W contrast IV MR cervical spine w and wo contrast Imaging Routine Abnormal brain MRI Expected: 11/03/2024 (Approximate), Expires: 11/03/2025 [facility] Work Phone: Comment on above: Expected: 11/03/2024 (Approximate), Expi res: 11/03/2025 Start: 11-03-2024 End: 11-03-2025 MR Thoracic spine WO and W contrast IV MR thoracic spine w and wo contrast Imaging Routine Abnormal brain MRI Expected: 11/03/2024 (Approximate), Expires: 11/03/2025 [facility] [employer] Comment on above: Expected: 11/03/2024 (Approximate), Expi res: 11/03/2025 Start: 10-26-2024 End: 10-26-2024 Patient encounter procedure 10/26/2024 2:00 PM EST Office Visit [facility] [address] [place] [phone] Alison Cage NP [address] [place] [phone] Arrived [facility] Comment on above: Arrived Start: 10-25-2024 End: 10-25-2024 Patient encounter procedure [facility] [address] Start: 10-11-2024 End: 10-11-2024 Patient encounter procedure 10/11/2024 3:00 PM EST Office Visit [facility] [address] [place] [phone] Caitlin Finch NP [address] [place] [phone] Seizure disorder (CMS/HCC) (Primary Dx); Major depressive disorder, recurrent severe without psychotic features (HCC) (CMS/HCC); Other emphysema (CMS/HCC); Fibromyalgia; Chronic right hip pain; Obesity (BMI 30-39.9); Chronic migraine without aura without status migrainosus, not intractable (CMS/HCC); Generalized anxiety disorder (CMS/HCC) [facility] Comment on above: Seizure disorder (CMS/HCC) (Primary Dx); Major depressive disorder, recurrent severe without psychotic features (HCC) (CMS/HCC); Other emphysema (CMS/HCC); Fibromyalgia; Chronic right hip pain; Obesity (BMI 30-39.9); Chronic migraine without aura without status migrainosus, not intractable (CMS/HCC); Generalized anxiety disorder (CMS/HCC) Start: 10-05-2024 End: 10-05-2024 Patient encounter procedure 10/05/2024 1:00 PM EST Office Visit [facility] [address] [place] [address] Caitlin Finch, MARY [address] [place] [address] [facility] Start: 09-12-2024 End: 09-12-2024 Patient encounter procedure 09/12/2024 3:00 PM EST Office Visit [facility] [address] [phone] Scar Blair, PhD [address] [place] [address] [facility] Start: 09-09-2024 End: 09-09-2025 MR Cervical spine WO and W contrast IV MR cervical spine w and wo contrast Imaging Routine Abnormal brain MRI Memory difficulty Weakness Paresthesia Expected: 09/09/2024 (Approximate), Expires: 09/09/2025 [facility] Comment on above: Expected: 09/09/2024 (Approximate), Expi res: 09/09/2025 Start: 09-09-2024 End: 09-09-2025 MR Thoracic spine WO and W contrast IV MR thoracic spine w and wo contrast Imaging Routine Abnormal brain MRI Memory difficulty Weakness Paresthesia Expected: 09/09/2024 (Approximate), Expires: 09/09/2025 [facility] Comment on above: Expected: 09/09/2024 (Approximate), Expi res: 09/09/2025 Start: 08-31-2024 End: 08-24-2025 Basic metabolic 1998 panel - Serum or Plasma Basic metabolic panel Lab Routine Hyperkalemia Expected: 08/31/2024 (Approximate), Expires: 08/24/2025 [facility] Work Phone: Comment on above: Expected: 08/31/2024 (Approximate), Expi res: 08/24/2025 Start: 08-30-2024 End: 08-30-2024 Patient encounter procedure [facility] [address] Comment on above: Arrived Start: 08-30-2024 End: 08-30-2025 Acetylcholine receptor, binding Acetylcholine receptor, binding Lab Routine Weakness Expected: 08/30/2024 (Approximate), Expires: 08/30/2025 [facility] Comment on above: Expected: 08/30/2024 (Approximate), Expi res: 08/30/2025 Start: 08-30-2024 End: 08-30-2025 Acetylcholine receptor, blocking Acetylcholine receptor, blocking Lab Routine Weakness Expected: 08/30/2024 (Approximate), Expires: 08/30/2025 [facility] Comment on above: Expected: 08/30/2024 (Approximate), Expi res: 08/30/2025 Start: 08-30-2024 End: 08-30-2025 Acetylcholine receptor, modulating Acetylcholine receptor, modulating Lab Routine Weakness Expected: 08/30/2024 (Approximate), Expires: 08/30/2025 [facility] Comment on above: Expected: 08/30/2024 (Approximate), Expi res: 08/30/2025 Start: 08-30-2024 End: 08-30-2025 LYME, TOTAL AB WITH REFLEX ([facility]) LYME, TOTAL AB WITH REFLEX ([facility]) Lab Routine Weakness Paresthesia Expected: 08/30/2024 (Approximate), Expires: 08/30/2025 [facility] Comment on above: Expected: 08/30/2024 (Approximate), Expi res: 08/30/2025 Start: 08-30-2024 End: 08-30-2025 MUSK ANTIBODY TEST MUSK ANTIBODY TEST Lab Routine Weakness Expected: 08/30/2024 (Approximate), Expires: 08/30/2025 [facility] Work Phone: Comment on above: Expected: 08/30/2024 (Approximate), Expi res: 08/30/2025 Start: 08-08-2024 End: 08-08-2024 Patient encounter procedure 08/08/2024 2:40 PM EST Office Visit [facility] [address] [place] [address] Alison Cage, [employer] [address] [place] [phone] [facility] [address] Start: 07-11-2024 End: 07-11-2025 Acetylcholine receptor, binding Acetylcholine receptor, binding Lab Routine Weakness Expected: 07/11/2024 (Approximate), Expires: 07/11/2025 [facility] Comment on above: Expected: 07/11/2024 (Approximate), Expi res: 07/11/2025 Start: 07-11-2024 End: 07-11-2025 Acetylcholine receptor, blocking Acetylcholine receptor, blocking Lab Routine Weakness Expected: 07/11/2024 (Approximate), Expires: 07/11/2025 [facility] Comment on above: Expected: 07/11/2024 (Approximate), Expi res: 07/11/2025 Start: 07-11-2024 End: 07-11-2025 Acetylcholine receptor, modulating Acetylcholine receptor, modulating Lab Routine Weakness Expected: 07/11/2024 (Approximate), Expires: 07/11/2025 [facility] Comment on above: Expected: 07/11/2024 (Approximate), Expi res: 07/11/2025 Start: 07-11-2024 End: 07-11-2025 Comprehensive metabolic 2000 panel - Serum or Plasma Comprehensive metabolic panel Lab Routine Weakness Expected: 07/11/2024 (Approximate), Expires: 07/11/2025 [facility] Comment on above: Expected: 07/11/2024 (Approximate), Expi res: 07/11/2025 Start: 07-11-2024 End: 07-11-2025 Creatine kinase [Enzymatic activity/volume] in Serum or Plasma CK Lab Routine Weakness Expected: 07/11/2024 (Approximate), Expires: 07/11/2025 [facility] Comment on above: Expected: 07/11/2024 (Approximate), Expi res: 07/11/2025 Start: 07-11-2024 End: 07-11-2025 MR Brain WO and W contrast IV MR brain w and wo contrast routine Imaging Routine Memory difficulty Abnormal brain MRI Expected: 07/11/2024 (Approximate), Expires: 07/11/2025 [facility] Work Phone: Comment on above: Expected: 07/11/2024 (Approximate), Expi res: 07/11/2025 Start: 07-11-2024 End: 07-11-2025 MUSK ANTIBODY TEST MUSK ANTIBODY TEST Lab Routine Weakness Expected: 07/11/2024 (Approximate), Expires: 07/11/2025 [facility] Comment on above: Expected: 07/11/2024 (Approximate), Expi res: 07/11/2025 Start: 07-11-2024 End: 07-11-2025 Myoglobin, serum Myoglobin, serum Lab Routine Weakness Expected: 07/11/2024 (Approximate), Expires: 07/11/2025 [facility] Comment on above: Expected: 07/11/2024 (Approximate), Expi res: 07/11/2025 Start: 07-11-2024 End: 07-11-2025 Nuclear Ab [Titer] in Serum by Immunofluorescence JOSE Lab Routine Weakness Expected: 07/11/2024 (Approximate), Expires: 07/11/2025 [facility] Comment on above: Expected: 07/11/2024 (Approximate), Expi res: 07/11/2025 Start: 07-11-2024 End: 07-11-2025 Thyrotropin [Units/volume] in Serum or Plasma TSH Lab Routine Weakness Expected: 07/11/2024 (Approximate), Expires: 07/11/2025 [facility] Comment on above: Expected: 07/11/2024 (Approximate), Expi res: 07/11/2025 Start: 07-04-2024 End: 07-04-2024 Patient encounter procedure 07/04/2024 2:20 PM EDT Office Visit [facility] [address] [place] [address] Alison Cage NP [address] [place] [phone] [facility] [address] Start: 06-28-2024 End: 06-28-2024 Patient encounter procedure 06/28/2024 1:40 PM EDT Office Visit [facility] [address] [place] [phone] Caitlin Finch NP [address] [place] [phone] [facility] Start: 06-14-2024 End: 06-14-2024 Patient encounter procedure 06/14/2024 11:00 AM EDT Office Visit [facility] [address] [place] [address], [place] [address] Alison Cage NP [address] [place] [address] [facility] [address] Start: 06-07-2024 End: 06-07-2024 Patient encounter procedure [facility] Comment on above: Acute right hip pain (Primary Dx); Right hip impingement syndrome; Tear of right acetabular labrum, initial encounter Start: 01-27-2024 Screening for malignant neoplasm of breast Mammogram [facility] Comment on above: Postponed from 2018 (Other Medical Reasons) Start: 12-17-2023 End: 12-17-2023 Patient encounter procedure 12/17/2023 3:20 PM EDT Office Visit [facility] [address] [place] [phone] Caitlin Finch, MARY [address] [place] [phone] [facility] Start: 12-10-2023 End: 12-10-2023 Patient encounter procedure 12/10/2023 4:30 PM EDT Appointment [facility] [address] [place], [place] [phone] Frank Diaz, STRAPPER - CNM [address] [place], [place] [phone] epic* sched loida Prajapati from doc ofc [facility] Comment on above: epic* sched w Victorina from doc ofc Start: 10-06-2023 Screening for malignant neoplasm of cervix Cervical cancer screen [facility], [place] Start: 07-30-2023 FUV, Provider: Shaneka Diaz, Status: Pen, Time: 2:30 PM FUV, Provider: Shaneka Diaz, Status: Pen, Time: 2:30 PM [facility] 250 DO Work Phone: Start: 07-05-2023 Screening for malignant neoplasm of cervix Pap Smear [facility] Start: 06-23-2023 End: 06-23-2023 Patient encounter procedure 06/23/2023 Office Visit Obstetrics and Gynecology Frank Diaz, STRAPPER - CN [address] [place], [place] [phone] [facility] Start: 06-15-2023 FUV, Provider: Shaneka Diaz, Status: Pen, Time: 2:00 PM FUV, Provider: Shaneka Diaz, Status: Pen, Time: 2:00 PM [facility] 250 DO Work Phone: Start: 06-08-2023 HOLTER 48, Provider: WILLARD HU LABORATORY COORDINATOR 1,[id number], Status: Pen, Time: 2:15 PM HOLTER 48, Provider: WILLARD HU LABORATORY COORDINATOR 1,[id number], Status: Pen, Time: 2:15 PM [facility] 250 DO Work Phone: Start: 06-08-2023 ECHO, Provider: EDMUNDWHIT COLLIER ULTRASOUND 01,[id number], Status: Pen, Time: 1:30 PM ECHO, Provider: EDMUND BAEZI ULTRASOUND 01,[id number], Status: Pen, Time: 1:30 PM [facility] 250 DO Work Phone: Start: 05-13-2023 SURGNONUH, Provider: Anya Watkins, Status: Pen, Time: 10:00 AM SURGNONUH, Provider: Anya Watkins, Status: Pen, Time: 10:00 AM [facility] Work Phone: Start: 04-28-2023 Influenza vaccination [facility] Start: 2023 Screening for malignant neoplasm of colon [facility] Start: 07-10-2022 End: 07-10-2022 Patient encounter procedure 07/10/2022 Appointment Radiology [facility] Start: 05-29-2022 Influenza vaccination Flu vaccine (#1) [facility] Start: 10-06-2021 Screening for malignant neoplasm of cervix Cervical cancer screen [place], [place] Start: 07-05-2021 Depression Screen Depression Screen [facility] Start: 01-02-2021 End: 01-02-2021 Office Visit 01/02/2021 Office Visit Obstetrics and Gynecology Frank Diaz, STRAPPER - CNM [address] [place] [phone] [facility] Start: 01-01-2021 End: 01-01-2021 Office Visit 01/01/2021 Office Visit Obstetrics and Gynecology Keturah Can DO [address] [place] [address] [facility] Start: 12-18-2020 End: 12-18-2020 Office Visit 12/18/2020 Office Visit Obstetrics and Gynecology Keturah Can DO [address] [place] [address] [facility] Start: 11-27-2020 End: 11-27-2020 Office Visit 11/27/2020 Office Visit Obstetrics and Gynecology Keturah Can, [address] [place] [address] [facility] Start: 11-12-2020 End: 11-12-2020 Hospital Encounter [facility] Comment on above: HYSTERECTOMY VAGINAL LAPAROSCOPIC ROBOTI C ASSISTED-POSSIBLE BSO, POSSIBLE LAPAROSCOPIC COLPOPEXY Start: 11-12-2020 End: 11-12-2020 Hospital Encounter [facility] Comment on above: HYSTERECTOMY VAGINAL LAPAROSCOPIC ROBOTI C ASSISTED-POSSIBLE BSO, POSSIBLE LAPAROSCOPIC COLPOPEXY Start: 10-29-2020 End: 10-29-2020 Office Visit 10/29/2020 Office Visit Obstetrics and Gynecology Keturah Can, [address] [place] [address] [facility] Start: 09-03-2020 End: 09-03-2020 Office Visit 09/03/2020 Office Visit Obstetrics and Gynecology Keturah Can DO [address] [place] [address] [facility] Start: 08-31-2020 End: 08-31-2020 Appointment 08/31/2020 Appointment Radiology [facility] Start: 07-12-2020 End: 07-12-2020 Appointment 07/12/2020 Appointment Radiology [facility] Start: 05-29-2020 Influenza vaccination Flu vaccine (#1) [place] Start: 2018 Diabetes screen Diabetes screen [place], [place] Start: 2018 Lipid panel [facility] Start: 2013 Diabetes screen Diabetes screen [facility] Start: 2008 Screening for malignant neoplasm of cervix HPV/Cotest [facility] Start: 1999 Screening for malignant neoplasm of cervix Pap Smear [facility] Start: 1997 DTaP/Tdap/Td vaccine (1 - Tdap) DTaP/Tdap/Td vaccine (1 - Tdap) [facility] Start: 1996 Hepatitis C screening Hepatitis C screen [facility] Start: 1994 COVID-19 Vaccine (1) COVID-19 Vaccine (1) [facility] Start: 1993 HIV screening HIV screen [facility] Start: 1990 Depression Monitoring Depression Monitoring [facility] Start: 1978 COVID-19 Vaccine (#1) COVID-19 Vaccine (#1) [facility] Start: 1978 Hepatitis B vaccine (1 of 3 - 3-dose series) Hepatitis B vaccine (1 of 3 - 3-dose series) [facility] Start: 1978 Hepatitis C screening Hepatitis C screen [place], [place] Start: 1978 Screening for malignant neoplasm of colon [facility] End: 07-05-2020 C.trachomatis N.gonorrhoeae DNA, Thin Prep C.trachomatis N.gonorrhoeae DNA, Thin Prep Microbiology Routine History of menorrhagia 1 Occurrences starting 07/05/2020 until 07/05/2020 [place] Comment on above: 1 Occurrences starting 07/05/2020 until 07/05/2020 C.trachomatis N.gono rrhoeae DNA, Thin Prep C.trachomatis N.gonorrhoeae DNA, Thin Prep Microbiology Routine History of menorrhagia 07/05/2020 5:13 PM EDT [place] End: 06-18-2022 Culture, Genital [facility] Phone: Comment on above: 1 Occurrences starting 06/18/2022 until 06/18/2022 End: 11-11-2023 Culture, Genital [facility] Comment on above: 1 Occurrences starting 11/11/2023 until 11/11/2023 End: 01-01-2023 Culture, Urine [facility] Phone: Comment on above: 1 Occurrences starting 01/01/2023 until 01/01/2023 End: 07-05-2020 Cytopathology procedure, preparation of smear, genital source [facility] Routine Screening for cervical cancer 1 Occurrences starting 07/05/2020 until 07/05/2020 [facility] Comment on above: 1 Occurrences starting 07/05/2020 until 07/05/2020 End: 08-31-2020 SHAYLEE ANTONIO DIGITAL SCREEN BILATERAL SHAYLEE ANTONIO DIGITAL SCREEN BILATERAL Imaging Routine Screening mammogram, encounter for 1 Occurrences starting 08/31/2020 until 08/31/2020 [facility] Comment on above: 1 Occurrences starting 08/31/2020 until 08/31/2020 SHAYLEE ANTONIO DIGITAL SCR EEN BILATERAL SHAYLEE ANTONIO DIGITAL SCREEN BILATERAL Imaging Routine Screening mammogram, encounter for 08/31/2020 5:14 PM EST [facility] Immun[facility] Immunization Date Immunization Notes Care Provider [facility] 09-05-2015 tetanus toxoid, redu gil diphtheria toxoid, and acellular pertussis vaccine, adsorbed Jaelyn Bright Other [facility] 07-23-2009 influenza, whole Roney YEMI ERS [facility] Payers Date Payer Category Payer Unknown [id number] 2024 Medicare (Managed Care) 1.2. [id number] 2024 Medicare [id number] 2023 Medicare [id number]. [id number]. [id number] 2023 Medicare [id number] 2023 Medicare [id number] 2023 Self-pay [id number] 2023 Medicaid [employer] MED[place] [employer] MEDICA[place] [id number] 2023-Present [address] [place] [address] [id number]. [id number] 2023 Private Health Insurance [id number]. [id number] 2023 Private Health Insurance 1.2 .840.329206.1.13.693.2. 7.3.789633.315 2022 Private Health Insurance [id number] 1.2.840.166005.1.13.239.2. 7.3.535195.315 1978 Unknown [id number] 2.16.840.1.399911.3.579.2. 593 1978 Unknown [id number] 2.16.840.1.142458.3.579.2. 593 1978 Unknown [id number] 2.16840.1.326962.3.579.2. 593 1978 Unknown [id number] 2.16.840.1.714509.3.579.2. 593 1978 Unknown [id number] 2.16.840.1.488302.3.579.2. 593 1978 Unknown [id number] 2.16.840.1.035921.3.579.2. 593 1978 Unknown [id number] 2.16.840.1.986313.3.579.2. 593 1978 Unknown [id number] 2.16.840.1.217493.3.579.2. 356 1978 Unknown [id number] 2.16.840.1.685526.3.579.2. 356 1978 Unknown [id number] 2.16.840.1.211915.3.579.2. 356 1978 Unknown [id number] 2.16.840.1.528040.3.579.2. 356 1978 Unknown [id number] 2.16.840.1.657080.3.579.2. 8 1978 Unknown [id number] 2.16.840.1.981917.3.579.2. 1067 1978 Unknown [id number] 2.16.840.1.974145.3.579.2. 4 1978 Unknown [id number] 2.16.840.1.426558.3.579.2. 176 1978 Unknown [id number] 2.16.840.1.876502.3.579.2. 176 1978 Unknown [id number] 2.16.840.1.086008.3.579.2. 176 1978 Unknown [id number] 2.16840.1.933244.3.579.2. 1978 Unknown [id number] 2.16840.1.534330.3.579.2. 1978 Unknown [id number] 2.16.840.1.826028.3.579.2. 176 1978 Unknown [id number] 2.16.840.1.713548.3.579.2. 1978 Unknown [id number] 2.16.840.1.154329.3.579.2. 1978 Unknown [id number] 2.16840.1.837104.3.579.2. 176 1978 Unknown [id number] 2.16.840.1.866918.3.579.2. 176 1978 Unknown [id number] 2.16.840.1.643721.3.579.2. 176 1978 Unknown [id number] 2.16.840.1.185251.3.579.2. 176 1978 Unknown [id number] 2.16.840.1.419908.3.579.2. 176 1978 Unknown [id number] 2.16.840.1.900727.3.579.2. 176 1978 Unknown [id number] 2.16.840.1.397568.3.579.2. 176 1978 Unknown [id number] 2.16.840.1.508300.3.579.2. 176 1978 Unknown [id number] 2.16.840.1.915438.3.579.2. 176 1978 Unknown [id number] 2.16.840.1.732667.3.579.2. 176 1978 Unknown [id number] 2.16.840.1.263632.3.579.2. 176 1978 Unknown [id number] 2.16.840.1.980207.3.579.2. 176 1978 Unknown [id number] 2.16.840.1.053744.3.579.2. 176 1978 Unknown [id number] 2.16.840.1.417499.3.579.2. 176 1978 Unknown [id number] 2.16.840.1.462476.3.579.2. 176 1978 Unknown [id number] 2.16.840.1.597830.3.579.2. 176 1978 Unknown [id number] 2.16.840.1.300501.3.579.2. 176 1978 Unknown [id number] 2.16.840.1.765775.3.579.2. 176 1978 Unknown [id number] 2.16.840.1.665557.3.579.2. 176 1978 Unknown [id number] 2.16.840.1.264148.3.579.2. 176 1978 Unknown [id number] 2.16.840.1.653217.3.579.2. 176 1978 Unknown [id number] 2.16.840.1.647918.3.579.2. 176 1978 Unknown [id number] 2.16.840.1.530005.3.579.2. 176 1978 Unknown [id number] 2.16.840.1.100882.3.579.2. 176 1978 Unknown [id number] 2.16.840.1.894498.3.579.2. 176 1978 Unknown [id number] 2.16.840.1.421808.3.579.2. 176 1978 Unknown [id number] 2.16.840.1.535536.3.579.2. 176 1978 Unknown [id number] 2.16.840.1.861718.3.579.2. 176 1978 Unknown [id number] 2.16.840.1.638605.3.579.2. 176 1978 Unknown [id number] 2.16.840.1.731485.3.579.2. 176 1978 Unknown [id number] 2.16.840.1.551232.3.579.2. 173 1978 Unknown [id number] 2.16.840.1.861781.3.579.2. 173 1978 Unknown [id number] 2.16.840.1.513197.3.579.2. 1978 Unknown [id number] 2.16.840.1.482799.3.579.2. 1285 1978 Unknown [id number] 2.16.840.1.573029.3.579.2. 1285 1978 Unknown [id number] 2.16.840.1.272812.3.579.2. 1285 1978 Unknown [id number] 2.16.840.1.952189.3.579.2. 1285 1978 Unknown [id number] 2.16.840.1.661669.3.579.2. 1285 1978 Unknown [id number] 2.16.840.1.347955.3.579.2. 1285 1978 Unknown [id number] 2.16.840.1.121710.3.579.2. 1258 1978 Unknown [id number] 2.16.840.1.980258.3.579.2. 1258 1978 Unknown [id number] 2.16.840.1.058962.3.579.2. 1258 1978 Unknown [id number] 2.16.840.1.606988.3.579.2. 1258 1978 Unknown [id number] 2.16.840.1.636341.3.579.2. 1258 1978 Unknown [id number] 2.16840.1.779243.3.579.2. 1258 1978 Unknown [id number] 2.16840.1.138525.3.579.2. 1258 1978 Unknown [id number] 2.16840.1.016975.3.579.2. 1258 1978 Unknown [id number] 2.16840.1.435704.3.579.2. 1258 1978 Unknown [id number] 2.16840.1.686592.3.579.2. 1258 1978 Unknown [id number] 2.16.840.1.493959.3.579.2. 1258 1978 Unknown [id number] 2.16.840.1.890991.3.579.2. 1258 1978 Unknown [id number] 2.16.840.1.588382.3.579.2. 1258 1978 Unknown [id number] 2.16840.1.073820.3.579.2. 1258 1978 Unknown [id number] 2.16.840.1.932875.3.579.2. 1259 1978 Unknown [id number] 2.16.840.1.505993.3.579.2. 9 1978 Unknown [id number] 2.16.840.1.216022.3.579.2. 1259 1978 Unknown [id number] 2.16.840.1.773212.3.579.2. 9 1978 Unknown [id number] 2.16.840.1.383907.3.579.2. 1259 1978 Unknown [id number] 2.16.840.1.864708.3.579.2. 727 1978 Unknown [id number] 2.16.840.1.737604.3.579.2. 727 1978 Unknown [id number] 2.16.840.1.103481.3.579.2. 7 1978 Unknown [id number] 2.16.840.1.477847.3.579.2. 727 1978 Unknown [id number] 2.16.840.1.848618.3.579.2. 727 1959 Unknown [id number] 1.2.840.161354.1.13.239.2. 7.3.640805.315 1959 Unknown [id number] 1.2.840.784685.1.13.239.2. 7.3.588159.315 Medicare [id number] Unknown Unknown [id number] 2.16.840.1.442376.3.579.2. 531 Social History Date Type Detail Facility Start: 10-06-2018 End: 07-05-2020 Tobacco smoking status NHIS Never smoker [place] Start: 07-05-2020 End: 08-30-2024 Tobacco use and exposure Never used [place] Start: 07-05-2020 End: 11-06-2024 Alcohol intake Current drinker of alcohol (finding) [place] Start: 07-05-2020 Alcohol Comment social [place] Start: 1978 Sex Assigned At Not on file [place] Start: 06-08-2022 End: 06-18-2022 Exposure to SARS-CoV-2 (event) Not sure [place] Start: 1980 Sex Assigned At Female [facility] Start: 05-01-2023 End: 03-21-2024 Sex Assigned At [facility] Start: 07-03-2021 End: 11-14-2024 Tobacco smoking status Ex-smoker (finding) [facility] Tobacco smoking status Never [facility] Start: 05-01-2023 End: 03-21-2024 Occasional caffeine consumption Occasional caffeine consumption [facility] Start: 05-01-2023 History SDOH Alcohol Frequency 2 [facility] Start: 05-01-2023 History SDOH Alcohol Std Drinks 1 [facility] History of tobacco use Current smoker [facility] History of tobacco use Cigarette Smoker [facility] How often to you hav e a drink containing alcohol? Monthly or less [facility] FAD ? IO How many standard dr inks containing alcohol do you have on a typical day? 1 or 2 [facility] How often do you hav e 6 or more drinks on 1 occasion? Less than monthly [facility] Start: 06-25-2023 Alcohol Comment 1-2 drinks 2-4 x a month in the past year, Caffeine intake: none [facility] History of tobacco use Passive smoker [facility] Do you belong to any clubs or organizations such as yarsanism groups, unions, fraternal or athletic groups, or [...] To some extent [facility] (I/We) worried corky er (my/our) food would run out before (I/we) got money to buy more. Sometimes true [facility] The food that (I/we) bought just didn't last, and (I/we) didn't have money to get more. Never true [facility] Start: 06-13-2024 Alcohol Comment Caffeine intake: none [facility] How often to you hav e a drink containing alcohol? 2-4 times a month [facility] Medical Equipment Procedure Code Equipment Code Equipment Origin al Text Equipment Identifier Dates fluorescein ophthalmic strip 1 mg [id number] Start: 05-01-2023 End: 05-01-2023 Functional Status Date Assessment Result Facility 11-14-2024 Functional Status N/A [facility] 12-22-2022 Functional Status N/A [facility] 09-01-2022 Functional Status N/A [facility] Clinical Notes 07-18-2022 to 11-14-2024 Alison Cage, MARY - 10/26/2024 2:00 PM ESTPatient InstructionsCaitlin Fnich, MARY - 10/11/2024 3:00 PM ESTLisa MARY Finch - 10/11/2024 7:17 AM ESTCaitlin Finch NP - 10/11/2024 7:17 AM EST Note Date & Type Note Facility 11-14-2024 Hospital Discharge instructions Patient Education 11/14/2024 15:28:53 Kidney Stones, [facility] Kidney Stones Kidney stones are rock-like masses that form inside of the kidneys. Kidneys are organs that make pee (urine). A kidney stone may move into other parts of the urinary tract, including: The tubes that connect the kidneys to the bladder (ureters). The bladder. The tube that carries urine out of the body (urethra). Kidney stones can cause very bad pain and can block the flow of pee. The stone usually leaves your body through your pee. A doctor may need to take out the stone. What are the causes? Kidney stones may be caused by: Too much calcium in the body. This may be caused by too much parathyroid hormone in the blood. Uric acid crystals in the bladder. The body makes uric acid when you eat certain foods. Narrowing of one or both of the ureters. A kidney blockage that you were born with. Past surgery on the kidney or the ureters. What increases the risk? You are more likely to develop this condition if: You have had a kidney stone in the past. Other people in your family have had kidney stones. You do not drink enough water. You eat a diet that is high in protein, salt (sodium), or sugar. You are very overweight (obese). What are the signs or symptoms? Symptoms of a kidney stone may include: Pain in the side of the belly, right below the ribs. Pain usually spreads to the groin. Needing to pee often or right away. Pain when peeing. Blood in your pee. Feeling like you may vomit (nauseous). Vomiting. Fever and chills. How is this treated? Treatment depends on the size, location, and makeup of the kidney stones. The stones will often pass out of the body when you pee. You may need to: Drink more fluid to help pass the stone. ?In some cases, you may be given fluids through an IV tube at the hospital. Take medicine for pain. Change your diet to help keep kidney stones from coming back. Sometimes, you may need: A procedure to break up kidney stones using a beam of light (laser) or shock waves. Surgery to remove the kidney stones. Follow these instructions at home: Medicines Take qrlx-cgn-bklgvnq and prescription medicines only as told by your doctor. Ask your doctor if the medicine prescribed to you requires you to avoid driving or using machinery. Eating and drinking Drink enough fluid to keep your pee pale yellow. ?You may be told to drink at least 8 10 glasses of water each day. This will help you pass the stone. If told by your doctor, change your diet. You may be told to: ?Limit how much salt you eat. ?Eat more fruits and vegetables. ?Limit how much meat, poultry, fish, and eggs you eat. Follow instructions from your doctor about what you may eat and drink. General instructions Collect pee samples as told by your doctor. You may need to collect a pee sample: ?24 hours after a stone comes out. ?8 12 weeks after a stone comes out, and every 6 12 months after that. Strain your pee every time you pee. Use the strainer that your doctor recommends. Do not throw out the stone. Keep it so that it can be tested by your doctor. Keep all follow-up visits. You may need X-rays and ultrasounds to make sure the stone has come out. How is this prevented? To prevent another kidney stone: Drink enough fluid to keep your pee pale yellow. This is the best way to prevent kidney stones. Eat healthy foods. Avoid certain foods as told by your doctor. You may be told to eat less protein. Stay at a healthy weight. Where to find more information National Kidney Foundation (NKF): kidney.org [facility] (F): urologyhealth.org Contact a doctor if: You have pain that gets worse or does not get better with medicine. Get help right away if: You have a fever or chills. You get very bad pain. You get new pain in your belly. You faint. You cannot pee. This information is not intended to replace advice given to you by your health care provider. Make sure you discuss any questions you have with your health care provider. Document Revised: 05/08/2023 Document Reviewed: 05/08/2023 [employer] Patient Education 2023 [employer]. 11/14/2024 13:02:10 Dietary Guidelines to Help Prevent Kidney Stones Dietary Guidelines to Help Prevent Kidney Stones Kidney stones are deposits of minerals and salts that form inside your kidneys. Your risk of developing kidney stones may be greater depending on your diet, your lifestyle, the medicines you take, and whether you have certain medical conditions. Most people can lower their risks of developing kidney stones by following these dietary guidelines. Your dietitian may give you more specific instructions depending on your overall health and the type of kidney stones you tend to develop. What are tips for following this plan? Reading food labels Choose foods with no salt added or low-salt labels. Limit your salt (sodium) intake to less than 1,500 mg a day. Choose foods with calcium for each meal and snack. Try to eat about 300 mg of calcium at each meal. Foods that contain 200 500 mg of calcium a serving include: ?8 oz (237 mL) of milk, gwuuqgq-qwfmbncuenfw-icvra milk, and calcium-fortifiedfruit juice. Calcium-fortified means that calcium has been added to these drinks. ?8 oz (237 mL) of kefir, yogurt, and soy yogurt. ?4 oz (114 g) of tofu. ?1 oz (28 g) of cheese. ?1 cup (150 g) of dried figs. ?1 cup (91 g) of cooked broccoli. ?One 3 oz (85 g) can of sardines or mackerel. Most people need 1,000 1,500 mg of calcium a day. Talk to your dietitian about how much calcium is recommended for you. Shopping Buy plenty of fresh fruits and vegetables. Most people do not need to avoid fruits and vegetables, even if these foods contain nutrients that may contribute to kidney stones. When shopping for convenience foods, choose: ?Whole pieces of fruit. ?Pre-made salads with dressing on the side. ?Low-fat fruit and yogurt smoothies. Avoid buying frozen meals or prepared deli foods. These can be high in sodium. Look for foods with live cultures, such as yogurt and kefir. Choose high-fiber grains, such as whole-wheat breads, oat bran, and wheat cereals. Cooking Do not add salt to food when cooking. Place a salt shaker on the table and allow each person to add their own salt to taste. Use vegetable protein, such as beans, textured vegetable protein (TVP), or tofu, instead of meat in pasta, casseroles, and soups. Meal planning Eat less salt, if told by your dietitian. To do this: ?Avoid eating processed or pre-made food. ?Avoid eating fast food. Eat less [...] fish, or seafood. ?When you prepare animal proteins, cut pieces into small portion sizes. For most meat and fish, one serving is about the size of the palm of your hand. Eat at least five servings of fresh fruits and vegetables each day. To do this: ?Keep fruits and vegetables on hand for snacks. ?Eat one piece of fruit or a handful of berries with breakfast. ?Have a salad and fruit at lunch. ?Have two kinds of vegetables at dinner. You may be told to limit foods that are high in a substance called oxalate. These include: ?Spinach (cooked), rhubarb, beets, sweet potatoes, and Jordanian chard. ?Peanuts. ?Potato chips, israeli fries, and baked potatoes with skin on. ?Nuts and nut products. ?Chocolate. If you regularly take a diuretic medicine, make sure to eat at least 1 or 2 servings of fruits or vegetables that are high in potassium each day. These include: ?Avocado. ?Banana. ?[place]ar[place], prune, carrot, or tomato juice. ?Baked potato. ?Cabbage. ?Beans and split peas. Lifestyle Drink enough fluid to keep your urine pale yellow. This is the most important thing you can do. Spread your fluid intake throughout the day. If you drink alcohol: ?Limit how much you have to: ?0 1 drink a day for women who are not . ?0 2 drinks a day for men. ?Know how much alcohol is in your drink. In the [place] one drink equals one 12 oz bottle of beer (355 mL), one 5 oz glass of wine (148 mL), or one 1 oz glass of hard liquor (44 mL). Lose weight if told by your health care provider. Work with your dietitian to find an eating plan and weight loss strategies that work best for you. General information Talk to your health care provider and dietitian about taking daily supplements. Depending on your health and the cause of your kidney stones, you may be told: ?Do not take high-dose supplements of vitamin C (1,000 mg a day or more). ?To take a calcium supplement. ?To take a daily probiotic supplement. ?To take other supplements such as magnesium, fish oil, or vitamin B6. Take tfqk-zmv-tfytboq and prescription medicines only as told by your health care provider. These include supplements. What foods should I limit? Limit your intake of the following foods, or eat them as told by your dietitian. Vegetables Spinach. Rhubarb. Beets. Canned vegetables. Pickles. Olives. Baked potatoes with skin. Grains Wheat bran. Baked goods. Salted crackers. Cereals high in sugar. Meats and other proteins Nuts. Nut butters. Large portions of meat, poultry, or fish. Salted, precooked, or cured meats, such as sausages, meat loaves, and hot dogs. Dairy Cheeses. Beverages Regular soft drinks. Regular vegetable juice. Seasonings and condiments Seasoning blends with salt. Salad dressings. Soy sauce. Ketchup. Barbecue sauce. Other foods Canned soups. Canned pasta sauce. Casseroles. Pizza. Lasagna. Frozen meals. Potato chips. Ivorian fries. The items listed above may not be a complete list of foods and beverages you should limit. Contact a dietitian for more information. What foods should I avoid? Talk to your dietitian about specific foods you should avoid based on the type of kidney stones you have and your overall health. Fruits Grapefruit. The item listed above may not be a complete list of foods and beverages you should avoid. Contact a dietitian for more information. Summary Kidney stones are deposits of minerals and salts that form inside your kidneys. You can lower your risk of kidney stones by making changes to your diet. The most important thing you can do is drink enough fluid. Drink enough fluid to keep your urine pale yellow. Talk to your dietitian about how much calcium you should have each day, and eat less salt and animal protein as told by your dietitian. This information is not intended to replace advice given to you by your health care provider. Make sure you discuss any questions you have with your health care provider. Document Revised: 12/25/2022 Document Reviewed: 12/25/2022 [employer] Patient Education 2023 [employer]. Follow Up Care 10/31/2024 11:39:51 With:RAFAL COLIN PA-C, URL Address: [address] [place] [address] When:Within 1 Year(s) [facility] 11-14-2024 Note Patient Education Nephrology Dietary Guidelines to Help Prevent Kidney Stones Kidney stones are deposits of minerals and salts that form inside your kidneys. Your risk of developing kidney stones may be greater depending on your diet, your lifestyle, the medicines you take, and whether you have certain medical conditions. Most people can lower their risks of developing kidney stones by following these dietary guidelines. Your dietitian may give you more specific instructions depending on your overall health and the type of kidney stones you tend to develop. What are tips for following this plan? Reading food labels ??? Choose foods with no salt added or low-salt labels. Limit your salt (sodium) intake to less than 1,500 mg a day. ??? Choose foods with calcium for each meal and snack. Try to eat about 300 mg of calcium at each meal. Foods that contain 200?500 mg of calcium a serving include: ? 8 oz (237 mL) of milk, phyjiky-zbzmvybafhuq-nbnvg milk, and calcium-fortifiedfruit juice. Calcium-fortified means that [...] much calcium is recommended for you. Shopping ??? Buy plenty of fresh fruits and vegetables. Most people do not need to avoid fruits and vegetables, even if these foods contain nutrients that may contribute to kidney stones. ??? When shopping for convenience foods, choose: ? Whole pieces of fruit. ? Pre-made salads with dressing on the side. ? Low-fat fruit and yogurt smoothies. ??? Avoid buying frozen meals or prepared deli foods. These can be high in sodium. ??? Look for foods with live cultures, such as yogurt and kefir. ??? Choose high-fiber grains, such as whole-wheat breads, oat bran, and wheat cereals. Cooking ??? Do not add salt to food when cooking. Place a salt shaker on the table and allow each person to add their own salt to taste. ??? Use vegetable protein, such as beans, textured vegetable protein (TVP), or tofu, instead of meat in pasta, casseroles, and soups. Meal planning ??? Eat less salt, if told by your dietitian. To do this: ? Avoid eating processed or pre-made food. ? Avoid eating fast food. ??? Eat less animal protein, including cheese, meat, poultry, or fish, if told by your dietitian. To do this: ? Limit the number of times you have meat, poultry, fish, or cheese each week. Eat a diet free of meat at least 2 days a week. ? Eat only one serving each day of meat, poultry, fish, or seafood. ? When you prepare animal proteins, cut pieces into small portion sizes. For most meat and fish, one serving is about the size of the palm of your hand. ??? Eat at least five servings of fresh fruits and vegetables each day. To do this: ? Keep fruits and vegetables on hand for snacks. ? Eat one piece of fruit or a handful of berries with breakfast. ? Have a salad and fruit at lunch. ? Have two kinds of vegetables at dinner. ??? You may be told to limit foods that are high in a substance called oxalate. These include: ? Spinach (cooked), rhubarb, beets, sweet potatoes, and Jordanian chard. ? Peanuts. ? Potato chips, israeli fries, and baked potatoes with skin on. ? Nuts and nut products. ? Chocolate. ??? If you regularly take a diuretic medicine, make sure to eat at least 1 or 2 servings of fruits or vegetables that are high in potassium each day. These include: ? Avocado. ? Banana. ? [place]ar[place], prune, carrot, or tomato juice. ? Baked potato. ? Cabbage. ? Beans and split peas. Lifestyle ??? Drink enough fluid to keep your urine pale yellow. This is the most important thing you can do. Spread your fluid intake throughout the day. ??? If you drink alcohol: ? Limit how much you have to: ? 0?1 drink a day for women who are not . ? 0?2 drinks a day for men. ? Know how much alcohol is in your drink. In the [place] one drink equals one 12 oz bottle of beer (355 mL), one 5 oz glass of wine (148 mL), or one 1? oz glass of hard liquor (44 mL). ??? Lose weight if told by your health care provider. Work with your dietitian to find an eating plan and weight loss strategies that work best for you. General information ??? Talk to your health care provider and dietitian about taking daily supplements. Depending on your health and the cause of your kidney stones, you may be told: ? Do not take high-dose supplements of vitamin C (1,000 mg a day or more). ? To take a calcium supplement. ? To take a daily probiotic supplement. ? To take other supplements such as magnesium, fish oil, or vitamin B6. ??? Take dsuz-kuk-karrqbd and prescription medicines only as told by your health (more content not included)... [facility] 10-26-2024 History of Present illness Narrative Images from the original note were not included. Chief Complaint Patient presents with Migraine Weakness, Gen Follow-up Subjective Andrea Long is a 44 y.o. female. History of Present Illness The patient presents today for a follow-up appointment. At the prior appointment, MRIs, labs, and referral for neuropsychological evaluation were ordered. The patient did not complete these. She states she was somewhat overwhelmed by all of the work up that was ordered. She states she did not have the MRIs completed because she was unsure if they would be covered by her insurance. She is switching to [employer] health insurance on 10/29/2024. She states she hasn't made it to [facility] yet to have her labs completed; she will try to have these drawn today. She has been approved for disability. The patient continues to follow with Dr. Laurent for psychiatry. She saw him most recently yesterday. She continues on estrogen therapy for menopausal symptoms, and this has provided significant benefit for her hot flashes. She denies any seizure-like activity or loss consciousness since the prior neurology appointment. She reports generalized weakness but believes this may be due to her fibromyalgia. She also admits to balance difficulty and states she has always been a, clutz. She reports blurry vision. She states her eye doctor was talking about considering bifocals at the next visit. She states her memory and cognition, don't ever feel clear, but denies any noticeable change in her cognitive function since the previous appointment. She is independent with all ADLs and IADLs. She denies impulsiveness or behavioral changes. She denies any recent falls. The patient has had approximately 1 migraine per month recently. These are stable and well controlled. They are accompanied by nausea and light and sound sensitivity. She denies any further new concerns. Review [...] pain and palpitations. Gastrointestinal: Negative for abdominal pain and blood in stool. Musculoskeletal: Positive for arthralgias and myalgias. Negative for gait problem. Positive for pain Neurological: Positive for weakness, numbness and headaches (associated with photophobia/phonophobia and nausea). Negative for dizziness, tremors, seizures, syncope, facial asymmetry, speech difficulty and light-headedness. Positive for paresthesias and memory difficulty Psychiatric/Behavioral: Negative for hallucinations and suicidal ideas. Positive for anxiety and depression Home Medication List albuterol HFA 90 mcg/act inhaler; Inhale 2 puffs every 6 (six) hours if needed for wheezing Rosalee Aerosphere 160-9-4.8 MCG/ACT aerosol; Generic drug: Ynqydnd-Jjhabctatwm-Mhxwywkzlg clonazePAM 1 MG tablet; Commonly known as: [...] without aura without status migrainosus, not intractable ([facility]) 09/14/2023 COPD (chronic obstructive pulmonary disease) ([facility]) COVID-19 virus detected 12/17/2023 Depression ([facility]) Dysphagia 12/17/2023 Family history of mitral valve prolapse Fatigue 12/17/2023 Fibromyalgia diagnosed by rheumatology at [facility] Fibromyalgia, primary Headache Irritable bowel syndrome with constipation and diarrhea Kidney stone on right side Lumbar back pain 12/17/2023 Migraine ([facility]) Migraine, chronic, without aura ([facility]) Neuritis of right median nerve 12/17/2023 Other emphysema ([facility]) 08/26/2023 PFT 08/26/23: FVC 87 FEV1 81 FVC/FEV1 75 COPD Ovarian cyst, left 12/17/2023 Panic disorder ([facility]) Premenstrual tension syndrome Seizure disorder ([facility]) Severe episode of recurrent major depressive disorder, without psychotic features ([facility]) ([facility]) 06/13/2021 Temporomandibular joint disorders Urge incontinence 12/17/2023 [...] Bupropion, Reglan [metoclopramide], Amoxicillin, and Penicillins Vitals: 10/26/24 1353 BP: 132/88 Pulse: 83 SpO2: 94% Body mass index is 31.28 kg/m . weight: 188 lb Neurologic exam: Mental status and general appearance: Awake and alert with unlabored respirations. Oriented to person, place, and time. Recent and remote memory are primarily intact. Speech is clear and fluent without aphasia. Speech is non-dysarthric. Attention and concentration are normal. Fund of knowledge is appropriate for level of education. Flat affect. Pleasant. Cranial nerves: CN II: Visual acuity is [...] wrist extensors , wrist flexor , and registrar [employer] or [employer] strength 5/5. LUE strength deltoid , biceps , triceps , wrist extensors , wrist flexor , and [employer]rar [employer] or [employer] strength 5/5. RLE strength iliopsoas, quadriceps, tibialis anterior, and plantar flexion strength 5/5. LLE strength iliopsoas, quadriceps, tibialis anterior, and plantar flexion strength 5/5. No weakness of the neck flexors or extensors. Tone and bulk are normal. Sensory: Sensation is intact to light touch throughout all four extremities. Sensation is intact to temperature in all extremities. Widespread soft tissue tenderness upon palpation. Reflexes: RUE biceps reflex 3+ , brachioradialis reflex 3+. LUE biceps reflex 3+ , brachioradialis reflex 3+. RLE knee reflex 2+. LLE knee reflex 2+. Griffiths's sign negative. Coordination: Hqceeo-rz-iegt testing normal. Rapid alternating movements are normal. Gait: Normal. Review and summary of old records: MRI of the brain w and w/o contrast at [facility] on 08/17/24 (compared to CT of the brain from 11/30/17): No acute intracranial abnormality or abnormal intracranial enhancement. Moderate bifrontal atrophy. There are a few nonspecific scattered foci of T2/FLAIR signal abnormality identified in the bilateral frontal white matter. Labs on 08/17/24: CMP with potassium 5.2 (elevated), BUN 21 (elevated), creatinine 1.10 (elevated), and GFR 53 (low). Otherwise unremarkable. JOSE negative. CK 128 and myoglobin 63 (WNL). Thyroid stimulating hormone 1.322. Labs at [facility] on 03/25/23: Vitamin B12 level 550. TSH 0.852. MRI of the brain at [facility] on 01/08/22 : No acute intracranial process. No clear structural etiology to account for seizures. MRI of the brain at [facility] on 01/01/22: No acute intracranial pathology or [...] for the patient's age. EMG of the BLE 01/23/22: Unremarkable. EMG of the BUE 01/21/22: Unremarkable. Assessment/Plan Diagnoses and all orders for this visit: Abnormal brain MRI MRI of the brain from 08/17/24 was not directly compared to the prior MRI but again identified T2/FLAIR hyperintense foci in the bifrontal white matter. These are nonspecific but could potentially represent chronic microvascular ischemic disease (the patient is a former smoker, and this could contribute to white matter changes but denies history of other cardiovascular risk factors including hypertension, hyperlipidemia, or diabetes), migraine sequale, or demyelinating disease. Given the patient's chronic reports of cognitive dysfunction, fatigue, weakness, and paresthesias, I believe further work up is indicated to assess for possible demyelinating disease. PLAN: - MRI of the cervical spine and thoracic spine to evaluate for possible evidence of demyelinating lesions in the spinal cord. Re-ordered today. We discussed the purpose and importance of having these MRIs completed, and the patient verbalizes understanding - May consider lumbar puncture in the future pending MRI results Memory difficulty The patient reports subjective memory impairment, primarily with short-term recall. She remains independent with all ADLs and denies any significant functional disability at this time. MRI of the brain on 01/01/22 was nonacute but revealed bifrontal atrophy and some nonspecific white matter changes. TSH and vitamin B12 level on 03/25/23 were within normal limits. The patient's symptoms are potentially related to poor sleep, fibromyalgia, and/or a pseudodementia, as she has poorly controlled depression and anxiety. However, will complete further work up for possible MS as detailed above. PLAN: - Could consider neuropsychological evaluation in the future. This was deferred per patient request today, as she would like to complete her MRIs and labs first - Sleep hygiene, healthy diet, and regular physical activity as tolerated Weakness The patient continues to report vague, generalized weakness which seems to fluctuate. This has been ongoing for multiple years, and laboratory evaluation on 08/17/24 was unremarkable for definitive cause. I feel this is most likely related to fibromyalgia, as the patient also mentions chronic widespread musculoskeletal pain, paresthesias, fatigue, sleep difficulty, and cognitive/mood symptoms. However, will complete further work up for possible MS, Lyme disease, and myasthenia gravis. PLAN: - Check labs (Lyme Ab, [facility]K Ab, and [facility] labs). Lab orders were reprinted and provided to the patient today to have completed Paresthesia Fibromyalgia The patient reports intermittent numbness and tingling in the bilateral palms/soles. Previous BUE and BLE EMGs were normal. MRIs of the brain have identified nonspecific white matter changes. I have suspicion that chronic nonspecific pain and the above findings may be suggestive of fibromyalgia. However, will complete further work up for possible MS and Lyme disease. The patient previously took gabapentin 800 mg PO TID and was switched to Lyrica by her primary care provider with similar effectiveness. Amitriptyline was not tolerated previously. PLAN: - She is taking Lyrica 200 mg by mouth twice a day - Check labs (Lyme Ab) to evaluate for other possible causes. Lab order was reprinted and provided to the patient today to have completed Migraine without aura and without status migrainosus, not intractable (CMS/HCC) The patient has a longstanding history of episodic migraines for which Imitrex (prescribed by primary care provider) is highly effective. It does cause some fatigue, but the patient has tolerated this medication best for abortive treatment. Naratriptan was ineffective previously, and Ubrelvy and Nurtec also caused fatigue. PLAN: - Okay to continue Imitrex 100 mg by mouth as needed for breakthrough migraines. Take no more than 2 doses in 24 hours Anxiety and depression (CMS/HCC) The patient is established with Dr. Laurent ([facility] psychiatry). She denies suicidal or homicidal ideations. PLAN: - Follow up closely with psychiatry for management Seizures (CMS/HCC) The patient presented to [facility] emergency department (ED) on 01/07/22 following witnessed seizure activity. While in the ED, she had another seizure lasting approximately 30 seconds. She had no history of prior seizures. Positive family history of nonepileptic seizures. The patient admitted to abruptly stopping Klonopin and was also taking Wellbutrin at the time which lowers seizure threshold. Her seizures were likely provoked by these factors. MRI of the brain did not identify epileptogenic focus, and EEG was normal during hospitalization. She denies any definitive seizures since December 2021. PLAN: - Continue Keppra 500 mg by mouth twice a day for seizure prevention for now. Consider discontinuation in the future if she is seizure-free for three years Syncope and collapse Orthostatic hypotension At her appointment in January 2023, the patient mentioned 2 syncopal episodes that occurred while standing with no prodromal symptoms. No further loss of consciousness since that time. The patient was evaluated by Dr. Diaz in cardiology who noted no definite causes for patient's syncope from a cardiac perspective in July 2023. It is possible that the patient's syncope was related to orthostatic hypotension. She denies dizziness or lightheadedness recently. PLAN: - Ensure adequate hydration and change positions slowly Diagnosis and treatment options discussed in detail. All questions answered. The patient verbalizes understanding and is agreeable to the plan. Discussion in layman's terms. Follow up in the office within 1 month; sooner if needed for new or worsening symptoms. Alison Cage NP [facility] Advanced Neurology documented in this encounter [facility] 10-26-2024 Instructions Alison Cage NP - 10/26/2024 2:00 PM EST - MRI of the cervical and thoracic spine - Check labs documented in this encounter [facility] 10-11-2024 History of Present illness Narrative Images from the original note were not included. Andrea Long is a 44 y.o. female presents with chief complaint of Fibromyalgia HPI: COPD: +SOB, weeks, occ cough, clear phlegm, occ wheezing, using breztri BID, just started reusing in the last 10 days, uses albuterol 2-3 times daily, not using more freq prior to restart of breztri. Also may have overlap with anxiety. Fibromyalgia: pain levels 7-8/10, all over (head, neck, shoulders) not really a lot different. Migraine HUITRON: continues with imitrex, migraine HUITRON: unsure, sometimes uses excedrine migraine if not helping then goes to ice and imitrex, which does make it tolerable Is working with neurology had recent MRI brain, 07/2024 doing further labs SUBJECTIVE: MEDICATIONS: Current Outpatient Medications Medication Instructions albuterol HFA 90 mcg/act inhaler 2 puffs, Inhalation, Every 6 hours PRN Dnmcumr-Dhorxcsakoy-Yoqtzzxpyl (Breztri Aerosphere) 160-9-4.8 MCG/ACT aerosol 2 puffs, Inhalation, 2 times daily, Rinse mouth after use clonazePAM (KLONOPIN) 0.5 mg, 2 times daily PRN estradiol (Climara) 0.05 MG/24HR 1 patch, Weekly levETIRAcetam (KEPPRA) 500 mg, Oral, 2 times daily potassium citrate CR (Urocit-K-10) 10 mEq ER tablet 20 mEq, 2 times daily pregabalin (LYRICA) 200 mg, Oral, 2 times daily PROzac 40 mg, Every 24 hours SUMAtriptan (IMITREX) 100 mg, Oral, Once as [...] pain, discharge, redness and visual disturbance. Respiratory: Positive for chest tightness, shortness of breath and wheezing. Negative for cough. Cardiovascular: Negative for chest pain, palpitations and leg swelling. Gastrointestinal: Negative for abdominal pain, blood in stool, constipation, diarrhea, nausea and vomiting. Genitourinary: Negative for difficulty urinating, dysuria and frequency. Musculoskeletal: Positive for arthralgias, myalgias and neck stiffness. Negative for back pain and joint swelling. Skin: Negative for rash and wound. Neurological: Positive for dizziness and headaches. Negative for tremors, seizures and syncope. Psychiatric/Behavioral: Negative for behavioral problems, self-injury and suicidal ideas. The patient is nervous/anxious. Depression Hematological: Does not bruise/bleed easily. Endocrine: Negative for polydipsia, polyphagia and polyuria. Allergic/Immunologic: Negative for environmental allergies and food allergies. PAST MEDICAL HISTORY Past Medical History: Diagnosis Date Anxiety Arthralgia 12/17/2023 Chest pain 12/17/2023 Chronic migraine without aura without status migrainosus, not intractable (CMS/[facility]) 09/14/2023 COPD (chronic obstructive pulmonary disease) ([facility]) COVID-19 virus detected 12/17/2023 Depression ([facility]) Dysphagia 12/17/2023 Family history of mitral valve prolapse Fatigue 12/17/2023 Fibromyalgia diagnosed by rheumatology at [facility] Fibromyalgia, primary Headache Irritable bowel syndrome with [...] other family member. OBJECTIVE: Visit Vitals BP 116/68 (BP Location: Left arm, Patient Position: Sitting, BP Cuff Size: Adult long) Pulse 82 Temp 98.8 F (Temporal) Resp 20 Ht 5' 5 Wt 186 lb 6.4 oz SpO2 96% BMI 31.02 kg/m Smoking Status Former BSA 1.97 m Physical Exam Vitals and nursing note reviewed. Constitutional: General: She is not in acute distress. Appearance: Normal appearance. She is not ill-appearing. HENT: Head: Normocephalic and atraumatic. Right Ear: Tympanic membrane, ear canal and external ear normal. Left Ear: Tympanic membrane, ear canal and external ear normal. Nose: Nose normal. No congestion or rhinorrhea. Mouth/Throat: Mouth: Mucous membranes are moist. Pharynx: No oropharyngeal exudate or posterior oropharyngeal erythema. Eyes: Extraocular Movements: Extraocular movements intact. Conjunctiva/sclera: Conjunctivae normal. Neck: Vascular: No carotid bruit. Cardiovascular: Rate and Rhythm: Normal rate and regular rhythm. Pulses: Normal pulses. Heart sounds: Normal heart sounds. Pulmonary: Effort: Pulmonary effort is normal. Breath sounds: Normal breath sounds. No wheezing or rales. Abdominal: General: Bowel sounds are normal. There is no distension. Palpations: Abdomen is soft. There is no mass. Tenderness: There is no abdominal tenderness. Musculoskeletal: General: Normal range of motion. Cervical back: Normal range of motion and neck supple. Right lower leg: No edema. Left lower leg: No edema. Lymphadenopathy: Cervical: No cervical adenopathy. Skin: General: Skin is warm and dry. Capillary Refill: Capillary refill takes 2 to 3 seconds. Findings: No rash. Neurological: General: No focal deficit present. Mental Status: She is alert and oriented to person, place, and time. Psychiatric: Mood and Affect: Mood normal. Behavior: Behavior normal. Thought Content: Thought content normal. Judgment: Judgment normal. Comments: tearful ASSESSMENT AND PLAN: No follow-ups on file. Problem List Items Addressed This Visit Fibromyalgia She is under may care for this diagnosis, it has been discussed in the past about possibly seeing neuro for this, however she does not want to do that. At this point we will continue her Lyrica, also recommend exercise as her chronic health conditions allow, possibly water aerobics, yoga, stretch and good sleep hygiene, as well as control of her depression and anxiety OARRS reviewed Generalized anxiety disorder (CMS/HCC) Continue with dr laurent Major depressive disorder, recurrent severe without psychotic features (HCC) (CMS/HCC) Under the care of Dr Anastasiia David mgmt through him as well Other emphysema (CMS/HCC) Is taking breztri as well as albuterol prn Chronic migraine without aura without status migrainosus, not intractable (CMS/HCC) Depression/anxiety/fibro certainly worsen this. Have asked her in the pas to see neuro for this, she declines At this point we will continue imitrex prn migraine HUITRON Also has had a recent MRI with neurology and having further labs and MRI C and T spine Chronic right hip pain Continue with ortho for this Obesity (BMI 30-39.9) Seizure disorder (CMS/HCC) - Primary Is on keppra currently Follows with neurology Associated Problem(s): Major depressive disorder, recurrent severe without psychotic features (HCC) (CMS/HCC) Under the care of Dr Anastasiia barber through him as well Associated Problem(s): Generalized anxiety disorder (CMS/HCC) Continue with dr laurent Associated Problem(s): Chronic migraine without aura without status migrainosus, not intractable (CMS/HCC) Depression/anxiety/fibro certainly worsen this. Have asked her in the pas to see neuro for this, she declines At this point we will continue imitrex prn migraine HUITRON Also has had a recent MRI with neurology and having further labs and MRI C and T spine Associated Problem(s): Fibromyalgia She is under may care for this diagnosis, it has been discussed in the past about possibly seeing neuro for this, however she does not want to do that. At this point we will continue her Lyrica, also recommend exercise as her chronic health conditions allow, possibly water aerobics, yoga, stretch and good sleep hygiene, as well as control of her depression and anxiety OARRS reviewed Associated Problem(s): Chronic right hip pain Continue with ortho for this Associated Problem(s): Other emphysema (CMS/HCC) Is taking breztri as well as albuterol prn Associated Problem(s): Seizure disorder (CMS/HCC) Is on keppra currently Follows with neurology documented in this encounter [facility] 10-11-2024 Instructions Caitlin Finch NP - 10/11/2024 3:00 PM EST Continue with neurology and reschedule your appointment with dr arriaga documented in this encounter [facility] 08-30-2024 History of Present illness Narrative Images from the original note were not included. Chief Complaint Patient presents with Weakness, Gen Migraine Subjective Andrea Long is a 44 y.o. female. History of Present Illness The patient presents today for follow up. She had an MRI of the brain of the brain and labs completed for review. She states she was told she needs to have the AChR and MUSK antibody labs completed at a [facility] facility, so these have not been completed yet. She continues to follow with Dr. Laurent for psychiatry. She follows with OBGYN and was recently told she is going through menopause. She was started on estrogen therapy to help control menopausal symptoms. The patient denies any seizure-like activity, alteration of awareness, or loss of consciousness since the prior neurology appointment. She takes Keppra as prescribed and does not miss doses. She feels very tired and has not had much energy. She states her body will often feel, achy everywhere. She continues to have fluctuating, generalized weakness. Her weakness is not necessarily fatigable, and she denies drooping of the eyelids, swallowing difficulty, or speech difficulty. She reports blurry vision occasionally but denies eye pain, vision loss, or double vision. Her cognitive function and memory fluctuate, and she denies any significant worsening since the previous appointment. She denies impulsiveness or any definitive personality or behavioral changes. The patient has had approximately 1 migraine per month recently. These are accompanied by nausea and increased sensitivity to light/sound. Vomiting sometimes occurs. They are not accompanied by numbness, paresthesias, or weakness. Imitrex and an ice pack continue to help relieve her migraines. She mentions she is, always, dehydrated due to poor water intake. She denies any further new concerns. Review [...] pain and palpitations. Gastrointestinal: Negative for abdominal pain and blood in stool. Musculoskeletal: Positive for arthralgias and myalgias. Negative for gait problem. Positive for pain Neurological: Positive for weakness, numbness and headaches (associated with photophobia/phonophobia and nausea). Negative for dizziness, tremors, seizures, syncope, facial asymmetry, speech difficulty and light-headedness. Positive for paresthesias and memory difficulty Psychiatric/Behavioral: Negative for hallucinations and suicidal ideas. Positive for anxiety and depression Home Medication List albuterol HFA 90 mcg/act inhaler; Inhale 2 puffs every 6 (six) hours if needed for wheezing Breztri Aerosphere 160-9-4.8 MCG/ACT aerosol; Generic drug: Xhgueti-Dokuisnjalm-Axucsocbvx clonazePAM 1 MG tablet; Commonly known as: [...] without aura without status migrainosus, not intractable ([facility]/HCC) 09/14/2023 COPD (chronic obstructive pulmonary disease) (CMS/[facility]) COVID-19 virus detected 12/17/2023 Depression ([facility]) Dysphagia 12/17/2023 Family history of mitral valve prolapse Fatigue 12/17/2023 Fibromyalgia diagnosed by rheumatology at [facility] Fibromyalgia, primary Headache Irritable bowel syndrome with [...] recurrent major depressive disorder, without psychotic features ([facility]) (CMS/[facility]) 06/13/2021 Temporomandibular joint disorders Urge incontinence 12/17/2023 [...] Bupropion, Reglan [metoclopramide], Amoxicillin, and Penicillins Vitals: 08/30/24 1417 BP: 131/78 Pulse: 79 SpO2: 97% Body mass index is 31.8 kg/m . weight: 191 lb 2 oz Neurologic exam: Mental status and general appearance: Awake and alert with unlabored respirations. Oriented to person, place, and time. Recent and remote memory are intact. Speech is clear and fluent without aphasia. Speech is non-dysarthric. Attention and concentration are normal. Fund of knowledge is appropriate for level of education. Flat affect. Cranial nerves: CN II: Visual acuity is normal. Visual matthwes full to confrontation. CN III, IV, : [...] wrist extensors , wrist flexor , and [employer] or [employer] strength 5/5. LUE strength deltoid , biceps , triceps , wrist extensors , wrist flexor , and [employer] or [employer] strength 5/5. RLE strength iliopsoas, quadriceps, tibialis anterior, and plantar flexion strength 5/5. LLE strength iliopsoas, quadriceps, tibialis anterior, plantar flexion strength 5/5. No weakness of the neck flexors or extensors. Tone and bulk are normal. Sensory: Sensation is intact to light touch throughout all four extremities. Sensation is intact to temperature in all extremities. Widespread soft tissue tenderness upon palpation Reflexes: RUE biceps reflex 3+ , brachioradialis reflex 3+. LUE biceps reflex 3+ , brachioradialis reflex 3+. RLE knee reflex 2+. LLE knee reflex 2+. Griffiths's sign negative. Coordination: Rwpsza-is-gnjq testing normal. Rapid alternating movements are normal. Gait: Normal. Review and summary of old records: MRI of the brain w and w/o contrast at [facility] (compared to CT of the brain from 11/30/17): No acute intracranial abnormality or abnormal intracranial enhancement. Moderate bifrontal atrophy. There are a few nonspecific scattered foci of T2/FLAIR signal abnormality identified in the bilateral frontal white matter. Labs on 08/17/24: CMP with potassium 5.2 (elevated), BUN 21 (elevated), creatinine 1.10 (elevated), and GFR 53 (low). Otherwise unremarkable. JOSE negative. CK 128 and myoglobin 63 (WNL). Thyroid stimulating hormone 1.322. MRI of the brain w and w/o contrast at [facility] on 08/17/24: No acute intracranial abnormality or abnormal intracranial enhancement. There is moderate frontal atrophy. There are a few nonspecific scattered T2/FLAIR signal abnormality are identified in the bilateral frontal white matter. Labs at [facility] on 03/25/23: Vitamin B12 level 550. TSH 0.852. MRI of the brain at [facility] on 01/08/22 : No acute intracranial process. No clear structural etiology to account for seizures. MRI of the brain at [facility] on 01/01/22: No acute intracranial pathology or [...] for the patient's age. EMG of the BLE 01/23/22: Unremarkable. EMG of the BUE 01/21/22: Unremarkable. Assessment/Plan Diagnoses and all orders for this visit: Abnormal brain MRI MRI of the brain from 08/17/24 was not directly compared to the prior MRI but again identified T2/FLAIR hyperintense foci in the bifrontal white matter. These are nonspecific but could potentially represent chronic microvascular ischemic disease (the patient is a former smoker, and this could contribute to white matter changes but denies history of other cardiovascular risk factors including hypertension, hyperlipidemia, or diabetes), migraine sequale, or demyelinating disease. Given the patient's chronic reports of cognitive dysfunction, fatigue, weakness, and paresthesias, I believe further work up is indicated to assess for possible demyelinating disease. PLAN: - MRI of the cervical spine and thoracic spine to evaluate for possible evidence of demyelinating lesions in the spinal cord - May consider lumbar puncture in the future pending MRI results Memory difficulty The patient reports subjective memory impairment, primarily with short-term recall. She remains independent with all activities of daily living and denies any significant functional disability at this time. MRI of the brain on 01/01/22 was nonacute but revealed bifrontal atrophy and some nonspecific white matter changes. TSH and vitamin B12 level on 03/25/23 were within normal limits. The patient's symptoms are potentially related to poor sleep, fibromyalgia, and/or a pseudodementia, as she has poorly controlled depression and anxiety. However, will complete further work up for possible MS as detailed above. PLAN: - Referral for neuropsychological evaluation - Sleep hygiene, healthy diet, and regular physical activity as tolerated Weakness The patient continues to report vague, generalized weakness which seems to fluctuate. This has been ongoing for multiple years, and laboratory evaluation on 08/17/24 was unremarkable for definitive cause. I feel this is most likely related to fibromyalgia, as the patient also mentions chronic widespread musculoskeletal pain, paresthesias, fatigue, sleep difficulty, and cognitive/mood symptoms. However, will complete further work up for possible MS, Lyme disease, and myasthenia gravis. PLAN: - Check labs (Lyme Ab, MUSK Ab, and AChR labs) Paresthesia Fibromyalgia The patient reports intermittent numbness and tingling in the bilateral palms/soles. Previous BUE and BLE EMGs were normal. MRIs of the brain have identified nonspecific white matter changes. I have suspicion that chronic nonspecific pain and the above findings may be suggestive of fibromyalgia. However, will complete further work up for possible MS and Lyme disease. The patient previously took gabapentin 800 mg PO TID and was switched to Lyrica by her primary care provider with similar effectiveness. Amitriptyline was not tolerated previously. PLAN: - She is taking Lyrica 200 mg by mouth twice a day - Check labs (Lyme Ab) to evaluate for other possible causes Migraine without aura and without status migrainosus, not intractable (CMS/HCC) The patient has a longstanding history of episodic migraines for which Imitrex (prescribed by primary care provider) is highly effective. It does cause some fatigue, but the patient has tolerated this medication best for abortive treatment. Naratriptan was ineffective previously, and Ubrelvy and Nurtec also caused fatigue. PLAN: - Okay to continue Imitrex 100 mg by mouth as needed for breakthrough migraines. Take no more than 2 doses in 24 hours Anxiety and depression (CMS/HCC) The patient is established with Dr. Laurent ([facility] psychiatry). She denies suicidal or homicidal ideations. PLAN: - Continue to follow up closely with psychiatry for management Seizures (CMS/HCC) The patient presented to [facility] emergency department (ED) on 01/07/22 following witnessed seizure activity. While in the ED, she had another seizure lasting approximately 30 seconds. She had no history of prior seizures. Positive family history of nonepileptic seizures. The patient admitted to abruptly stopping Klonopin and was also taking Wellbutrin at the time which lowers seizure threshold. Her seizures were likely provoked by these factors. MRI of the brain did not identify epileptogenic focus, and EEG was normal during hospitalization. She denies any definitive seizures since December 2021. PLAN: - Continue Keppra 500 mg by mouth twice a day for seizure prevention for now. Consider discontinuation in the future if she is seizure-free for three years Syncope and collapse Orthostatic hypotension At her appointment in January 2023, the [...] patient's syncope was related to orthostatic hypotension. She denies dizziness or lightheadedness recently. PLAN: - Ensure adequate hydration and change positions slowly Diagnosis and treatment options discussed in detail. All questions answered. The patient verbalizes understanding and is agreeable to the plan. Discussion in layman's terms. Follow up in the office within 1 month; sooner if needed for new or worsening symptoms. Alison Cage NP [facility] Advanced Neurology documented in this encounter [facility] 08-30-2024 Instructions Alison Cage NP - 08/30/2024 2:20 PM EST - MRI of the cervical spine and thoracic spine ([facility]) - Labs ([facility]) - Referral for neuropsychological evaluation documented in this encounter [facility] 07-11-2024 History of Present illness Narrative Images from the original note [...] completed. She continues to follow with Dr. Anastasiia for psychiatry. She follows with OBGYN and [...] 6 (six) hours if needed for wheezing Rosalee Aerosphere 160-9-4.8 MCG/ACT aerosol; Generic drug: Ejzndhe-Cygztkmqfdh-Rrvbszexid clonazePAM 1 MG tablet; Commonly known as: [...] without aura without status migrainosus, not intractable ([facility]) 09/14/2023 COPD (chronic obstructive pulmonary disease) ([facility]) COVID-19 virus detected 12/17/2023 Depression (CMS/[facility]) Dysphagia 12/17/2023 Family history of mitral valve prolapse Fatigue 12/17/2023 Fibromyalgia diagnosed by rheumatology at [facility] Fibromyalgia, primary Headache Irritable bowel syndrome with constipation and diarrhea Kidney stone on right side Lumbar back pain 12/17/2023 Migraine (CMS/HCC) Migraine, chronic, without aura ([facility]) Neuritis of right median nerve 12/17/2023 Other emphysema (CMS/[facility]) 08/26/2023 PFT 08/26/23: FVC 87 FEV1 81 FVC/FEV1 75 COPD Ovarian cyst, left 12/17/2023 Panic disorder (CMS/[facility]) Premenstrual tension syndrome Seizure disorder (CMS/[facility]) Severe episode of recurrent major depressive disorder, without psychotic features ([facility]) ([facility]) 06/13/2021 Temporomandibular joint disorders Urge incontinence 12/17/2023 [...] wrist extensors , wrist flexor , and [employer] or [employer] strength 5/5. LUE strength deltoid , biceps , triceps , wrist extensors , wrist flexor , and [employer] or [employer] strength 5/5. RLE strength iliopsoas, quadriceps, tibialis [...] Knee reflex 3+. Griffiths's Sign negative. Coordination: Apdqzj-fx-ggwi testing normal. Rapid alternating movements are normal. Gait: Normal. Review and summary of old records: Labs at [facility] on 03/25/23: Vitamin B12 level 550. TSH 0.852. MRI of the brain at [facility] on 01/08/22 : No acute intracranial process. No clear structural etiology to account for seizures. MRI of the brain at [facility] on 01/01/22: No acute intracranial pathology or [...] The patient is established with Dr. Laurent ([facility] psychiatry) for anxiety and depression. She [...] antibodies) Seizures (CMS/HCC) The patient presented to [facility] emergency department (ED) on 01/07/22 following [...] new or worsening symptoms. Alison Cage NP [facility] Advanced Neurology documented in this encounter [facility] 07-11-2024 Instructions Alison Cage NP - 07/11/2024 2:00 PM EDT - MRI of the brain - Laboratory evaluation documented in this encounter [facility] 06-28-2024 History of Present illness Narrative Associated Problem(s): Severe episode of [...] hip surgery. Pt has gone to her rewind operator who did a menopause test on her- [...] ortho, needs hip scope done, new insurance [employer]: had hormone levels drawn, is in menopause, is starting hormone patch SUBJECTIVE: MEDICATIONS: Current Outpatient Medications Medication Instructions albuterol HFA 90 mcg/act inhaler 2 puffs, Inhalation, Every 6 hours PRN Ndzhqrr-Zwihkvtmviz-Vvkiasmfff (Breztri Aerosphere) 160-9-4.8 MCG/ACT aerosol 2 puffs, [...] without aura without status migrainosus, not intractable ([facility]) 09/14/2023 COPD (chronic obstructive pulmonary disease) ([facility]) COVID-19 virus detected 12/17/2023 Depression (CMS/[facility]) Dysphagia 12/17/2023 Family history of mitral valve prolapse Fatigue 12/17/2023 Fibromyalgia diagnosed by rheumatology at [facility] Headache Irritable bowel syndrome with constipation and diarrhea Kidney stone on right side Lumbar back pain 12/17/2023 Migraine (CMS/HCC) Migraine, chronic, without aura ([facility]) Neuritis of right median nerve 12/17/2023 Other emphysema ([facility]) 08/26/2023 PFT 08/26/23: FVC 87 FEV1 81 FVC/FEV1 75 COPD Ovarian cyst, left 12/17/2023 Panic disorder ([facility]) Premenstrual tension syndrome Seizure disorder ([facility]) Severe episode of recurrent major depressive disorder, without psychotic features ([facility]) ([facility] 06/13/2021 Temporomandibular joint disorders Urge incontinence 12/17/2023 [...] on new ortho documented in this encounter [facility] 06-10-2024 Telephone encounter Note Spoke to Dr Wang's office and they do not take pt insurance. Spoke to pt and she is agreeable to referral to Dr. Miguel. Referral was placed. Pt was grateful for return call. [facility] 06-10-2024 Miscellaneous Notes Spoke to Dr Wang's office and they do not take pt insurance. Spoke to pt and she is agreeable to referral to Dr. Miguel. Referral was placed. Pt was grateful for return call. Patient called to let us know that she called Dr Wang's office and they don't take her insurance. Wondering where she should go or do? [phone] documented in this encounter [facility] 06-10-2024 Telephone encounter Note Patient called to let us know that she called Dr Wang's office and they don't take her insurance. Wondering where she should go or do? [phone] [facility] 06-07-2024 History of Present illness Narrative Images from the original note were not included. HISTORY OF PRESENT ILLNESS: EST PT Andrea Long is an 44 y.o. @ female. 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 04/08/24 NO CORTISONE INJ PT DANIEL DUNCAN CONTINUES TO HAVE PAIN GROIN- PAIN CAN BE THROBBING AND STABBING- PAIN CAN RADIATE AROUND POSTERIORLY-+TYLENOL/IBUPROFEN PT HAS FIBROMYALGIA ALLERGIES: Allergies Allergen Reactions Amitriptyline Didn't feel right, anxious, on edge Bee Pollen Bupropion History of seizure while was taking wellbutrin Reglan [Metoclopramide] Amoxicillin Rash Penicillins Rash HOME MEDICATIONS: Current Outpatient Medications Medication Instructions albuterol HFA 90 mcg/act inhaler 2 puffs, Inhalation, Every 6 hours PRN Tnlwqzk-Lhpjvgckver-Ayisrfsbdh (Breztri Aerosphere) 160-9-4.8 MCG/ACT aerosol 2 puffs, Inhalation, 2 times daily, Rinse mouth after use clonazePAM (KLONOPIN) 0.5 mg, Oral, 2 times daily PRN famotidine (PEPCID) 20 mg, Oral, 2 times daily levETIRAcetam (KEPPRA) 500 mg, Oral, Every 12 [...] tiZANidine (ZANAFLEX) 4 mg, Oral, Nightly PRN Wegovy 0.25 mg, Subcutaneous, Every 7 days PHYSICAL EXAM: Hip Musculoskeletal Exam Gait Gait is normal. Inspection Leg length disparity: no discrepancy Right Erythema: none Ecchymosis: none Edema: none Deformity: none Inspection additional comments: + bruising right medial thigh to knee. Full painless rom of knee. No MCL instability or laxity. Palpation Right Right hip palpation is normal. Increased warmth: none Tenderness: none Palpation additional comments: + tendernessto bruise medial thigh, SLR intact. Range of Motion Right Right hip range of motion is within functional limits. Active ROM: normal. Passive ROM: normal. Strength Right Right hip strength is normal. Extension: 5/5. Flexion: 5/5. Internal rotation: 5/5. Internal rotation is affected by pain. External rotation: 5/5. Adduction: 5/5. Abduction: 5/5. Neurovascular Right Right hip neurovascular exam is normal. Pulses - PT: normal Posterior tibial: 2+ Special Tests Right Impingement test: positive General Constitutional: appears stated age Labored breathing: no Psychiatric: normal mood and affect Neurological: alert and oriented x3 Skin: intact Lymphadenopathy: none Vitals: There is no height or weight on file to calculate BMI. Tobacco Use: Medium Risk (06/07/2024) Patient History Smoking Tobacco Use: Former Smokeless Tobacco Use: Never Passive Exposure: Past Alcohol Use: Unknown (03/21/2024) AUDIT-C Frequency of Alcohol Consumption: 2-4 times a month Average Number of Drinks: 1 or 2 Frequency of Binge Drinking: Not on file IMAGING: MRI 03/18/24: Superior anterior labral tear. Procedures No orders of the defined types were placed in this encounter. ASSESSMENT: ICD-10-CM 1. Acute right hip pain M25.551 2. Right hip impingement syndrome M25.851 3. Tear of right acetabular labrum, initial encounter S73.191A PLAN: Recommend cont follow up for eval of possible hip scope . Pt notes cont symptoms , but more tolerable with consistent HEP.. pt has soft tissue bruise medial thigh from fall , no deficit.. pt dealing with stress in home, caring for mother.. Agrees to make follow up to specialist. Questions answered in laymen terms at the bedside. The diagnosis, home exercise plan and any ongoing restrictions/ recommendations reviewed. If unable to be reached in office, I recommend evaluation at nearest Emergency Room if any symptoms worsened or new symptoms develop for requiring urgent evaluation. documented in this encounter [facility] 05-19-2024 History of Present illness Narrative Associated Problem(s): Chronic migraine without aura without status migrainosus, not intractable (CMS/HCC) Recommend w trial another preventative for treatment of migraine: Will trial Qulipta 60mg, #4 samples given, Lot: [id number], exp 12/21 Will let me know after 2 weeks if helps HUITRON Associated Problem(s): Fibromyalgia At this point it was recommended that the patient fu w neurology since this is not helping, she does not really want to do this and see neurology for it. She has elected to continue with lyrica at current dose Associated Problem(s): Chronic right hip pain Continue with ortho for this Associated Problem(s): Obesity (BMI 30-39.9) Has trialed adipex, caused aggitation. Wants to trial wegovy again Pt stopped taking the adipex a couple weeks ago, she felt that it was not working for her and it was causing her to be more agitated, she is wondering about wegovy, she had to put hip surgery on hold due to her mom, mentally she is not in a good place for weight loss, she has three red scab bumps on outer right wrist and is unsure if it is skin cancer, and would like her bruises and scars on her arms and legs checked out. She is also struggling with her pre menopause with hot flashes and fatigue. Lyrica is not helping her Images from the original note were not included. Andrea Long is a 44 y.o. female presents with chief complaint of No chief complaint on file. HPI: Obesity: was on adipex, caused side effects, has lost 9 pounds since 03/21. Does not feel as though the lyrica is doing much for her fibromyalgia Migraine This is a chronic problem. The current episode started more than 1 year ago. The problem occurs constantly. The problem has been waxing and waning. The pain is located in the Left unilateral region. The pain quality is similar to prior headaches. The quality of the pain is described as sharp and throbbing. The pain is moderate. Associated symptoms include nausea, neck pain, phonophobia, photophobia and vomiting. Pertinent negatives include no abdominal pain, back pain, coughing, dizziness, ear pain, eye pain, eye redness, fever, seizures or sore throat. Nothing aggravates the symptoms. She has tried triptans and antidepressants for the symptoms. The treatment provided mild relief. Her past medical history is significant for migraine headaches. There is no history of migraines in the family. SUBJECTIVE: MEDICATIONS: Current Outpatient Medications Medication Instructions albuterol HFA 90 mcg/act inhaler 2 puffs, Inhalation, Every 6 hours PRN Etlbxbe-Gaxsgebunsx-Mskurzuesf (Breztri Aerosphere) 160-9-4.8 MCG/ACT aerosol 2 puffs, Inhalation, 2 times daily, Rinse mouth after use clonazePAM (KLONOPIN) 0.5 mg, Oral, 2 times daily PRN famotidine (PEPCID) 20 mg, Oral, 2 times daily levETIRAcetam (KEPPRA) 500 mg, Oral, Every 12 hours modafinil (PROVIGIL) 200 mg, Oral, Daily potassium citrate CR (Urocit-K-10) 10 mEq ER tablet 20 mEq, Oral, 2 times daily pregabalin (LYRICA) 200 mg, Oral, 2 times daily PROzac 40 mg, Oral, Every 24 hours SUMAtriptan (IMITREX) 100 mg, Oral, Once as needed, Take 100 mg by mouth 1 (one) time if needed for migraine, may repeat again in 2 hours if needed. No more than 2 pills in 24 hours, no more than twice in 1 week tiZANidine (ZANAFLEX) 4 mg, Oral, Nightly PRN Wegovy 0.25 mg, Subcutaneous, Every 7 days ALLERGIES: Allergies Allergen Reactions Amitriptyline Didn't feel right, anxious, on edge Bee Pollen Bupropion History of seizure while was taking wellbutrin Reglan [Metoclopramide] Amoxicillin Rash Penicillins Rash REVIEW OF SYMPTOMS: Review of Systems Constitutional: Negative for appetite change, chills and fever. HENT: Negative for congestion, ear pain and sore throat. Eyes: Positive for photophobia. Negative for pain, discharge, redness and visual disturbance. Respiratory: Negative for cough, shortness of breath and wheezing. Cardiovascular: Negative for chest pain, palpitations and leg swelling. Gastrointestinal: Positive for nausea and vomiting. Negative for abdominal pain, blood in stool, constipation and diarrhea. Genitourinary: Negative for difficulty urinating, dysuria and frequency. Musculoskeletal: Positive for arthralgias, myalgias and neck pain. Negative for back pain and joint swelling. Skin: Negative for rash and wound. Neurological: Negative for dizziness, tremors, seizures, syncope and headaches. Psychiatric/Behavioral: Negative for behavioral problems, self-injury and suicidal ideas. The patient is nervous/anxious. Depression Hematological: Bruises/bleeds easily. Endocrine: Negative for polydipsia, polyphagia and polyuria. Allergic/Immunologic: Negative for environmental allergies and food allergies. PAST MEDICAL HISTORY Past Medical History: Diagnosis Date Arthralgia 12/17/2023 Chest pain 12/17/2023 Chronic migraine without aura without status migrainosus, not intractable ([facility]) 09/14/2023 COPD (chronic obstructive pulmonary disease) ([facility]) COVID-19 virus detected 12/17/2023 Dysphagia 12/17/2023 Family history of mitral valve prolapse Fatigue 12/17/2023 Fibromyalgia Headache Irritable bowel syndrome with constipation and diarrhea Kidney stone on right side Lumbar back pain 12/17/2023 Migraine, chronic, without aura ([facility]) Neuritis of right median nerve 12/17/2023 Other emphysema ([facility]) 08/26/2023 PFT 08/26/23: FVC 87 FEV1 81 FVC/FEV1 75 COPD Ovarian cyst, left 12/17/2023 Panic disorder (CMS/HCC) Seizure disorder (CMS/HCC) Severe episode of recurrent major depressive disorder, without psychotic features (HCC) ([facility]) 06/13/2021 Urge incontinence 12/17/2023 Past Surgical History: Procedure Laterality Date APPENDECTOMY 08/1999 OTHER SURGICAL HISTORY 12/08/2017 PARTIAL HYSTERECTOMY family history includes Diabetes in her mother; Heart disease in her maternal grandfather and mother's sister; Hypertension in her mother; Mental illness in her maternal grandmother. OBJECTIVE: Visit Vitals BP 110/80 (BP Location: Left arm, Patient Position: Sitting, BP Cuff Size: Adult long) Pulse 80 Temp 97.5 F (Temporal) Resp 18 Ht 5' 5 Wt 181 lb 9.6 oz SpO2 97% BMI 30.22 kg/m Smoking Status Former BSA 1.94 m Physical Exam Vitals and nursing note [...] is normal. Breath sounds: Normal breath sounds. Musculoskeletal: General: Normal range of motion. Cervical [...] content normal. Judgment: Judgment normal. Comments: Flat afffect ASSESSMENT AND PLAN: No follow-ups on file. Problem List Items Addressed This Visit Fibromyalgia At this point it was recommended that the patient fu w neurology since this is not helping, she does not really want to do this and see neurology for it. She has elected to continue with lyrica at current dose Chronic migraine without aura without status migrainosus, not intractable ([facility]) Recommend w trial another preventative for treatment of migraine: Will trial Qulipta 60mg, #4 samples given, Lot: [id number], exp 12/21 Will let me know after 2 weeks if helps HUITRON Chronic right hip pain Continue with ortho for this Obesity (BMI 30-39.9) - Primary Has trialed adipex, caused aggitation. Wants to trial wegovy again Relevant Medications Semaglutide-Weight Management (Wegovy) 0.25 MG/0.5ML solution auto-injector Generalized skin lesions Relevant Orders Ambulatory referral to Dermatology documented in this encounter [facility] 09-29-2023 Evaluation note Encounter Date Diagnosis [...] fever/discomfort , cool mist humidifier. May use [place] as needed for cough, do not take any other OTCs while using [place]. Patient to follow up with PCP in 2-3 days symptoms do not improve. Immediate eval if SOB, difficulty breathing, chest pain, dizziness, or other concerning symptoms. Patient verbalizes understanding and is agreeable to treatment plan. [facility] Other 10-09-2023 Hospital Discharge instructions Follow Up Care 07/06/2023 14:23:44 With:PAWAN HAWLEY, Roney Kumar, URL Address: [facility] [address], [place] [address]- [phone] When: Unknown [facility] 08-04-2023 Hospital Discharge instructions* Discharge Instructions* Ericka Mackenzie PA-C - 05/01/2023 2:50 PM EDT Please follow up with PCP. Recommend benadryl for itching. Return to the ED if you develop worsening rash, throat swelling, shortness of breath, fevers, eye redness, eye pain, vision changes. * Attachments The following attachments cannot be sent through Care Everywhere. * Poison Loli - [place] - and [place] (Swedish) [facility] Discharge instructions Patient Education 12/22/2022 [...] include: ?Spinach. ?Rhubarb. ?Beets. ?Potato chips and israeli fries. ?Nuts. If you regularly take a diuretic medicine, make sure to eat at least 1 2 fruits or vegetables high in potassium each day. These include: ?Avocado. ?Banana. ?[place], prune, carrot, or tomato juice. ?Baked potato. [...] Casseroles. Pizza. Lasagna. Frozen meals. Potato chips. Ivorian fries. Summary You can reduce your risk [...] 01/09/2012 Document Revised: 01/04/2020 Document Reviewed: 08/25/2017 [employer] Patient Education 2020 [employer]. Follow Up Care 09/01/2022 13:32:46 With:PAWAN HAWLEY, Roney Kumar, URL Address: [facility] [address], [place] [address]- When: Unknown [facility] Óscar 12-05-2022 Hospital Discharge instructions Patient Education [...] include: ?Spinach. ?Rhubarb. ?Beets. ?Potato chips and israeli fries. ?Nuts. If you regularly take a diuretic medicine, make sure to eat at least 1 2 fruits or vegetables high in potassium each day. These include: ?Avocado. ?Banana. ?[place]arre, prune, carrot, or tomato juice. ?Baked potato. [...] Casseroles. Pizza. Lasagna. Frozen meals. Potato chips. Ivorian fries. Summary You can reduce your risk [...] 01/09/2012 Document Revised: 01/04/2020 Document Reviewed: 08/25/2017 [employer] Patient Education 2020 [employer]. Follow Up Care 07/31/2022 10:50:53 With:PAWAN HAWLEY, Roney Kumar, URL Address: [facility] [address], [place] [address]- When: Unknown [facility] 10-21-2022 Evaluation note* Encounter Date Diagnosis Assessment Notes Treatment Notes Treatment Clinical Notes Jun, Thrush (ICD-10 - B37.0) Thrush home care material was printed Drink plenty fluids, get plenty of rest. Continue home medications as prescribed. Use the nystatin suspension as prescribed. Follow-up with your family physician if no improvement in 2 to 3 days. Jun, Sore throat (ICD-10 - J02.9) [facility] [employer] [facility] Other Chisx complaint Narrative - ReportedANDREA LONG is being seen for a consultation for syncope, orthostatic hypotension.-[facility] [address] DO Work Phone: Evaluation + Plan note Future Appointments Appointment Date:12/22/2022 01:15:00 PM Scheduled Provider:Roney VILLALTA MD Location:[facility] Appointment Type:URO Office Visit [facility] evaluation + Plan note Future Appointments Appointment Date:07/06/2023 12:45:00 PM Scheduled Provider:Roney VILLALTA MD Location:[facility] Appointment Type:URO Office Visit [facility] evaluation + Plan note Future Appointments Appointment Date:10/03/2024 01:40:00 PM Scheduled Provider:RAFAL COLIN PA-C Location:[facility] Appointment Type:URO Office Visit [facility] evaluation + Plan note Future Appointments Appointment Date:11/14/2024 03:00:00 PM Scheduled Provider:RAFAL COLIN PA-C Location:[facility] Appointment Type:URO Office Visit [facility] evaluation + Plan note Future Appointments Appointment Date:11/17/2025 11:20:00 AM Scheduled Provider:RAFAL COLIN PA-C Location:[facility] Appointment Type:URO Office Visit [facility] evaluation noteNo assessment information available [facility] Work Phone: Evaluation note* Diagnosis Postcoital bleeding documented in this encounter [facility] Phone: evaluation note* Diagnosis Dysuria Pelvic pain documented in this encounter [facility] Phone: [email or web address] note* Diagnosis Hot flashes Symptomatic menopausal or female climacteric states documented in this encounter [facility] Phone: [email or web address] note* Diagnosis Poison loli- Primary Contact dermatitis and other eczema due to plants (except food) documented in this encounter [facility] [facility]* Diagnosis Menopausal symptoms Symptomatic menopausal or female climacteric states Vaginal discomfort Unspecified symptom associated with female genital organs documented in this encounter [facility] [employer] [facility]* Diagnosis Fibromyalgia- Primary Unspecified myalgia [...] features (HCC) (CMS/HCC) [facility] Diagnosis Nausea- Primary Nausea alone [facility]* Diagnosis Fibromyalgia Unspecified myalgia and myositis [facility]* Diagnosis Other emphysema (CMS/HCC)- Primary [...] collapse Orthostatic hypotension [facility]* Diagnosis Other emphysema (CMS/HCC)- Primary [...] myalgia and myositis documented in [facility]* Diagnosis Other emphysema (CMS/HCC)- [...] not intractable (CMS/HCC) documented in this encounter [facility]* Diagnosis Other emphysema (CMS/HCC)- [...] depressive disorder, without psychotic features (HCC) (CMS/HCC) Hyperkalemia- Primary Hyperpotassemia documented in this encounter [facility]* Diagnosis Other emphysema (CMS/HCC)- [...] depressive disorder, without psychotic features (HCC) (CMS/HCC) Abnormal brain MRI- Primary Nonspecific (abnormal) findings on radiological and other examination of skull and head Memory difficulty Memory loss Weakness Other malaise and fatigue Paresthesia Disturbance of skin sensation Fibromyalgia Unspecified myalgia and myositis Migraine without aura and without status migrainosus, not intractable (CMS/HCC) Anxiety and depression (CMS/HCC) Seizures (CMS/HCC) Other convulsions Syncope and collapse Orthostatic hypotension [facility] Diagnosis Chronic migraine without aura without status migrainosus, not intractable (CMS/HCC)- Primary Obesity (BMI 30-39.9) Chronic right hip pain Fibromyalgia Unspecified myalgia and myositis Generalized skin lesions [facility]* Diagnosis Acute right hip pain- Primary Right hip impingement syndrome Tear of right acetabular labrum, initial encounter documented in this encounter [facility]* Diagnosis Tear of right acetabular labrum, initial encounter documented in this encounter [facility]* Diagnosis Other emphysema (CMS/HCC)- [...] depressive disorder, without psychotic features (HCC) (CMS/HCC) Other emphysema (CMS/HCC)- Primary Other emphysema documented in this encounter [facility]* Diagnosis Other emphysema (CMS/HCC)- [...] depressive disorder, without psychotic features (HCC) (CMS/HCC) Fibromyalgia- Primary Unspecified myalgia and myositis Major depressive disorder, recurrent severe without psychotic features (HCC) (CMS/HCC) Other emphysema (CMS/HCC) Other emphysema Seizure disorder (CMS/HCC) Unspecified epilepsy without mention of intractable epilepsy Chronic right hip pain Obesity (BMI 30-39.9) Chronic migraine without aura without status migrainosus, not intractable (CMS/HCC) Generalized anxiety disorder (CMS/HCC) Generalized anxiety disorder [facility] Diagnosis Other emphysema (CMS/HCC)- Primary [...] depressive disorder, without psychotic features (HCC) (CMS/HCC) Fibromyalgia- Primary Unspecified myalgia and myositis Major depressive disorder, recurrent severe without psychotic features (HCC) (CMS/HCC) Other emphysema (CMS/HCC) Other emphysema Seizure disorder (CMS/HCC) Unspecified epilepsy without mention of intractable epilepsy Chronic right hip pain Obesity (BMI 30-39.9) Chronic migraine without aura without status migrainosus, not intractable (CMS/HCC) Generalized anxiety disorder (CMS/HCC) Generalized anxiety disorder Abnormal brain MRI- Primary Nonspecific (abnormal) findings on radiological and other examination of skull and head Memory difficulty Memory loss Weakness Other malaise and fatigue Paresthesia Disturbance of skin sensation Fibromyalgia Unspecified myalgia and myositis Migraine without aura and without status migrainosus, not intractable (CMS/HCC) Anxiety and depression (CMS/HCC) Seizures (CMS/HCC) Other convulsions Syncope and collapse Orthostatic hypotension [facility] N[facility] - Reported* Type Description Date Medical History migraine headache Medical History depression Medical History anxiety Surgical History appendectomy Surgical History partial hysterectomy Hospitalization History see above [facility] Other Hospital course Narrative No data available for this section [facility] Hospital Discharge instructions No data available for this section [facility] progress note No data available for this section [facility] reason for referral (narrative)* Consultation (Routine) - Authorized Specialty Diagnoses / Procedures Referred By Contac t Referred To Contact Dermatology Diagnoses Generalized skin lesions Procedures MD OFFICE/OUTPATIENT NEW HIGH MDM 60 MINUTES Caitlin Finch NP [address] [place] [address] Jack Wilson MD [address] [place] [address] Referral ID Status Reason Start Date Expiration Date Visits Requested Visits Authorized [id number] Authorized Specialty Services Required 05/19/2024 11/15/[address] [facility] Consultation (Routine) - Authorized Specialty Diagnoses / Procedures Referred By Contac t Referred To Contact Orthopaedic Surgery Diagnoses Tear of right acetabular labrum, initial encounter Lukas Bourne PA [address] [address] Christofer Miguel MD [address] [place] [address] Referral ID Status Reason Start Date Expiration Date Visits Requested Visits Authorized [id number] Authorized Specialty Services Required 06/10/2024 12/07/2024 1 1 Scheduling Instructions Referral to Dr. Miguel; please call pt to schedule [facility] Healthcare Assessments Diagnosis Screening for cervical cancer Screening [...] Documents on File Type Date Recorded Patient Customer Service Technician Expl anation ACP-Advance Directive ACP-Power of Certified Forklift Operator Documents on File Type Date Recorded Patient Customer Service Technician Expl anation ACP-Advance Directive ACP-Power of Certified Forklift Operator Latest Code Status on File Code [...] NON OB TRANSVAGINAL Frank Diaz APRN - [facility]Be[facility] [address] [place] [address] Status Reason Specialty Diagnoses / Procedures Referre d By Contact Referred To Contact Open Radiology Diagnoses Abnormal mammogram Procedures US BREAST COMPLETE RIGHT Frank Diaz APRN - CNM [address] [place] [address] [facility] Ultrasound [address] [place] [address] Summary Purpose Family History Unknown Family Member [...] TRANSVAGINAL Frank Diaz APRN - CNM [address] [place] [id number] Status Reason Specialty Diagnoses / Procedures Referred By Contact Referred To Contact Pending Review Radiology Diagnoses Screening mammogram, encounter for Procedures SHAYLEE ANTONIO DIGITAL SCREEN BILATERAL SHAYLEE DIGITAL SCREEN W OR WO CAD BILATERAL Frank Diaz APRN - CNM [address] [place] [phone] [place] [address] Status Reason Specialty Diagnoses / Procedures Referre d By Contact Referred To Contact Open Radiology Diagnoses Abnormal mammogram Procedures US BREAST COMPLETE RIGHT Frank Diaz APRN - CNM [address] [place] [phone] [facility] Ultrasound [address] [place] [address] Status Reason Specialty Diagnoses / Procedures Referre d By Contact Referred To Contact Closed Radiology Diagnoses Abnormal mammogram Procedures SHAYLEE ANTONIO DIGITAL DIAGNOSTIC UNILATERAL RIGHT SHAYLEE DIAGNOSTIC W CAD RIGHT Frank Diaz APRN - CNM [address] [place] [phone] [place] [address] Reason Comments Rash Reason Comments Med Refill Reason Comments Follow-up Reason Comments Weakness, Gen Migraine Reason Comments Pain Reason Comments Fibromyalgia Reason Comments Migraine Weakness, Gen Follow-up INFORMATION SOURCE (unrecogn ized section and content) DATE CREATED AUTHOR 04/22/2021 [facility] DATE CREATED AUTHOR AUTHOR'S ORGANIZ ATION 02/11/2023 [facility] DATE CREATED AUTHOR AUTHOR'S ORGANIZ ATION 04/24/2023 [employer] DATE CREATED AUTHOR AUTHOR'S ORGANIZ ATION 05/21/2023 [facility] DATE CREATED AUTHOR AUTHOR'S ORGANIZ ATION 07/04/2023 [facility] DATE CREATED AUTHOR AUTHOR'S ORGANIZ ATION [facility]05[facility]2023 [facility] DATE CREATED AUTHOR AUTHOR'S ORGANIZ ATION 08/01/2023 [facility] DATE CREATED AUTHOR AUTHOR'S ORGANIZ ATION 11/18/2023 [facility] DATE CREATED AUTHOR AUTHOR'S ORGANIZ ATION 06/24/2024 [facility] DATE CREATED AUTHOR AUTHOR'S ORGANIZ ATION 10/27/2024 [facility] DATE CREATED AUTHOR AUTHOR'S ORGANIZ ATION 10/28/2024 [facility] EPIC DATE CREATED AUTHOR AUTHOR'S ORGANIZ ATION 11/15/2024 [facility] Care Teams (unrecognized sec tion and content) Personnel Name: CAITLIN FINCH CNP Address: Address: [address] [place] [id number] [place] Team Status: Inactive Member Role Status Dates Fernando Ragsdale DO Attending Provider Active NON STAFF Primary Care Provider Active Team Status: Active Member Role Status Dates NON STAFF Primary Care Provider Active Slubber Frame Changer Relationship Specialty Start Date End Date Caitlin Finch [address] [place] [place] [address] PCP - General Nurse Practitioner 07/09/20 [employer]ub[employer] Changer Relationship Specialty Start Date End Date Caitlin Finch [address] [place] [address] PCP - General Nurse Practitioner 07/09/20 [employer]ubber Frame Changer Relationship Specialty Start Date End Date Caitlin Finch [address] [place] [address] PCP - General Nurse Practitioner 07/09/20 Slubber Frame Changer Relationship Specialty Start Date End Date Caitlin Finch [address] [place] [address] PCP - General Nurse Practitioner 07/09/20 Slubber Frame Changer Relationship Specialty Start Date End Date Caitlin Finch [address] [place] [address] PCP - General Nurse Practitioner 07/09/20 Slubber Frame Changer Relationship Specialty Start Date End Date Ugo Ramsay MD [address] [place] [address] PCP - General Family Medicine 04/08/23 Caitlin Finch NP [address] [place] [address] Referring Physician Nurse Practitioner 04/06/23 Slubber Frame Changer Relationship Specialty Start Date End Date Ugo Ramsay MD [address] [place] [address] PCP - General Family Medicine 01/05/24 Caitlin Finch NP [address] [place] [address] PCP - [facility] 03/28/24 03/27/98 Caitlin Finch NP [address] [place] [address] Nurse Practitioner Family Medicine 01/05/24 Slubber Frame Changer Relationship Specialty Start Date End Date Ugo Ramsay MD [address] [place] [address] PCP - General Family Medicine 01/05/24 Caitlin Finch NP [address] [place] [address] PCP - [facility] 03/28/24 03/27/98 Caitlin Finch NP [address] [place] [address] Nurse Practitioner Family Medicine 01/05/24 Slubber Frame Changer Relationship Specialty Start Date End Date Ugo Ramsay MD [address] [place] [address] PCP - General Family Medicine 01/05/24 Caitlin Finch NP [address] [place] [address] PCP [facility] 03/28/24 03/27/98 Caitlin Finch NP [address] [place] [address] Nurse Practitioner Family Medicine 01/05/24 Slubber Frame Changer Relationship Specialty Start Date End Date Ugo Ramsay MD [address] [place] [address] PCP - General Family Medicine 01/05/24 Caitlin Finch NP [address] [place] [address] PCP - [facility] 03/28/24 03/27/98 Caitlin Finch NP [address] [place] [address] Nurse Practitioner Family Medicine 01/05/24 Slubber Frame Changer Relationship Specialty Start Date End Date Ugo Ramsay MD [address] [place] [address] PCP - General Family Medicine 01/05/24 Caitlin Finch NP [address] [place] [address] [facility] 03/28/24 03/27/98 Caitlin Finch NP [address] [place] [address] Nurse Practitioner Family Medicine 01/05/24 Slubber Frame Changer Relationship Specialty Start Date End Date Ugo Ramsay MD [address] [place] [address] PCP - General Family Medicine 01/05/24 Caitlin Finch NP [address] [place] [address] PCP [facility] 03/28/24 03/27/98 Caitlin Finch NP [address] [place] [address] Nurse Practitioner Family Medicine 01/05/24 Slubber Frame Changer Relationship Specialty Start Date End Date Ugo Ramsay MD [address] [place] [address] PCP - General Family Medicine 01/05/24 Caitlin Finch NP [address] [place] [address] PCP - [facility] 03/28/24 03/27/98 Caitlin Finch NP [address] [place] [address] Nurse Practitioner Family Medicine 01/05/24 Slubber Frame Changer Relationship Specialty Start Date End Date Ugo Ramsay MD [address] [place] [address] PCP - General Family Medicine 01/05/24 Caitlin Finch NP [address] [place] [address] PCP [facility] 03/28/24 03/27/98 Caitlin Finch NP [address] [place] [address] Nurse Practitioner Family Medicine 01/05/24 Slubber Frame Changer Relationship Specialty Start Date End Date Ugo Ramsay MD [address] [place] [address] PCP - General Family Medicine 01/05/24 Caitlin Finch NP [address] [place] [address] PCP - [facility] 03/28/24 03/27/98 Caitlin Finch NP [address] [place] [address] Nurse Practitioner Family Medicine 01/05/24 Slubber Frame Changer Relationship Specialty Start Date End Date Ugo Ramsay MD [address] [place] [address] PCP - General Family Medicine 01/05/24 Caitlin Finch NP [address] [place] [address] Nurse Practitioner Family Medicine 01/05/24 Slubber Frame Changer Relationship Specialty Start Date End Date Ugo Ramsay MD [address] [place] [address] PCP - General Family Medicine 01/05/24 Caitlin Finch NP [address] [place] [address] Nurse Practitioner Family Medicine 01/05/24 Slubber Frame Changer Relationship Specialty Start Date End Date Ugo Ramsay MD [address] [place] [address] PCP - General Family Medicine 01/05/24 Caitlin Finch NP [address] [place] [address] PCP - [facility] 03/28/24 03/27/98 Caitlin Finch NP [address] [place] [address] Nurse Practitioner Family Medicine 01/05/24 Slubber Frame Changer Relationship Specialty Start Date End Date Ugo Ramsay MD [address] [place] [address] PCP - General Family Medicine 01/05/24 Caitlin Finch NP [address] [place] [address] [facility] 03/28/24 03/27/98 Caitlin Finch NP [address] [place] [address] Nurse Practitioner Family Medicine 01/05/24 Slubber Frame Changer Relationship Specialty Start Date End Date Ugo Ramsay MD [address] [place] [address] PCP - General Family Medicine 01/05/24 Caitlin Finch NP [address] [place] [address] PCP [facility] 03/28/24 03/27/98 Caitlin Finch NP [address] [place] [address] Nurse Practitioner Family Medicine 01/05/24 Slubber Frame Changer Relationship Specialty Start Date End Date Ugo Ramsay MD [address] [place] [address] PCP - General Family Medicine 01/05/24 Caitlin Finch NP [address] [place] [address] PCP - [facility] 03/28/24 03/27/98 Caitlin Finch NP [address] [place] [address] Nurse Practitioner Family Medicine 01/05/24 Slubber Frame Changer Relationship Specialty Start Date End Date Ugo Ramasy MD [address] [place] [address] PCP - General Family Medicine 01/05/24 Caitlin Finch NP [address] [place] [address] [facility] 03/28/24 03/27/98 Caitlin Finch NP [address] [place] [address] Nurse Practitioner Family Medicine 01/05/24 Slubber Frame Changer Relationship Specialty Start Date End Date Ugo Ramsay MD [address] [place] [address] PCP - General Family Medicine 01/05/24 Caitlin Finch NP [address] [place] [address] PCP - [facility] 03/28/24 03/27/98 Caitlin Finch NP [address] [place] [address] Nurse Practitioner Family Medicine 01/05/24 Slubber Frame Changer Relationship Specialty Start Date End Date Ugo Ramsay MD [address] [place] [address] PCP - General Family Medicine 01/05/24 Caitlin Finch NP [address] [place] [address] [facility] 03/28/24 03/27/98 Caitlin Finch NP [address] [place] [address] Nurse Practitioner Family Medicine 01/05/24 Slubber Frame Changer Relationship Specialty Start Date End Date Ugo Ramsay MD [address] [place] [address] PCP - General Family Medicine 01/05/24 Caitlin Finch NP [address] [place] [address] [facility] 03/28/24 03/27/98 Ugo Ramsay MD [address] [place] [address] PCP - [facility] 10/29/24 Caitlin Finch NP [address] [place] [address] Nurse Practitioner Family Medicine 01/05/24 Slubber Frame Changer Relationship Specialty Start Date End Date Ugo Ramsay MD [address] [place] [address] PCP - General Family Medicine 01/05/24 Caitlin Finch NP [address] [place] [address] PCP - [facility] 03/28/24 03/27/98 Caitlin Finch NP [address] [place] [address] Nurse Practitioner Family Medicine 01/05/24 Goals (unrecognized section and content) Goals may be documented in a n alternate sectionNo Information No data available for this section No data available for this sectionNo Information No data available for this section No data available for this section No data available for this section No [...] BE BASED ON THE PRIMARY CLINICAL RECORDS. [facility], [facility]. provides no warranty or guarantee of the accuracy or completeness of information in this document.
== END 2024-11-28 12:13 | disposition home or self-care (01) ==
LOC: MRI 12:12
PROVIDERS: PCP Nurse Practitioner; Visit Provider Nurse Practitioner Family
DX: R90.89 Other abnormal findings on diagnostic imaging of central nervous system (principal); R41.3 Other amnesia; R53.1 Weakness; R20.2 Paresthesia of skin; M50.30 Other cervical disc degeneration, unspecified cervical region
CPT/HCPCS: 72156; 72157; A9575